=== PATIENT | male | born 1955 | race Caucasian/White ===

== ENCOUNTER 2017-09-02 15:49 | Emergency (ER) | payer OTHER ==
[~2017-09-02] VITALS: Ht 185.4 cm; Wt 81.8 kg
[~2017-09-02 15:49] MED LIST: PROT40TA PO; TYLE500T PO
[2017-09-02 15:53] VITALS: BP 173/84; PULSE 89; RESP 20; TEMP 98.1; O2SAT 100
--- NOTE | 2017-09-02 17:28 | RADRPT ---
EXAM DATE/TIME: 09/02/2017 16:14 [facility] COMPARISON: No previous studies available for comparison. INDICATIONS : Patient states left side rib pain after fall. MEDICAL HISTORY : None. SURGICAL HISTORY : None. ENCOUNTER: Initial ACUITY: 1 day PAIN SCORE: 10/10 LOCATION: Left posterior ribs. FINDINGS: Multiple views of the left ribs were performed. There is no evidence of displaced fracture. No dest ructive lesions or areas of periosteal thickening are seen. Expiratory view of the chest is negative for pneumothorax. There is crowding of the bronchopulmonary markings characteristic of an expirator y film. The mediastinal structures are midline. CONCLUSION: No rib fractures seen. Rios Palacios MD on September 02, 2017 at 17:26 Board Certified Radiologist. This report was verified electronically.
--- NOTE | 2017-09-02 17:37 | RADRPT ---
EXAM DATE/TIME: 09/02/2017 16:23 [facility] COMPARISON: RIBS LEFT(W PA CXR MIN 3VWS), September 02, 2017, 16:14. INDICATIONS : Left shoulder pain post fall. MEDICAL HISTORY : None. SURGICAL HISTORY : None. ENCOUNTER: Initial ACUITY: 1 day PAIN SCORE: 10/10 LOCATION: Left shoulder. FINDINGS: Multiple view examination of the left shoulder demonstrates no evidence of fracture or dislocation. The glenohumeral and acromioclavicular joints are maintained. There is normal range of motion betwee n internal and external rotation. There is a questionable lucency through the superior cortex of the margin of the scapula; a nondisplaced fracture cannot be excluded. The visualized left upper ribs a re intact. qBony mineralization is normal. CONCLUSION: 1. Equivocal findings suggesting a cortical fracture of the superior medial margin of the scapula. 2. No evidence of fracture or dislocation the glenohumeral joint. Rios Palacios MD on September 02, 2017 at 17:34 Board Certified Radiologist. This report was verified electronically.
--- NOTE | 2017-09-02 18:18 | PD ---
HPI Chief Complaint: Injury Time Seen by Provider: 18:17 Travel History International Travel<30 days: No Contact w/Intl Traveler<30days: No Traveled to known affect area: No History of Present Illness HPI 62-year-old male presents for evaluation of left sided shoulder and rib cage pain. He reports that he slipped on wet tile yesterday and felt, landing on his left side and chest wall. Pain is a sharp pain which is worse with movement of the chest wall or movement of the left shoulder. Denies any numbness, tingling, weakness. Denies any shortness of breath, abdominal pain, neck or back pain, head pain. He has no other complaints at this time. PFSH Past Medical History Blood Disorders: No Anxiety: Yes Depression: Yes Cancer: No Cardiovascular Problems: Yes Chemotherapy: No Chest Pain: Yes Diminished Hearing: No Endocrine: No Genitourinary: No Hypertension: Yes Immune Disorder: No Musculoskeletal: Yes Neurologic: No Psychiatric: Yes Reproductive: No Respiratory: No Radiation Therapy: No Past Surgical History Abdominal Surgery: No Cardiac Surgery: No Ear Surgery: No Endocrine Surgery: No Eye Surgery: No Oral Surgery: No Social History Alcohol Use: Yes ("A FEW BEERS A DAY") Tobacco Use: Yes (1 PPD) Substance Use: No (PT DENIES) Allergies-Medications (Allergen,Severity, Reaction): Coded Allergies: No Known Allergies (Verified Adverse Reaction, Unknown, 09/02/17) Reported Meds & Prescriptions Reported Meds & Active Scripts Active Lidocaine Patch 12 HR (Lidocaine) 5 % Patch 1 Patch TOPICAL DAILY PRN Remove patch after 12 hours Naproxen 500 Mg Tab 500 Mg PO BID 10 Days Review of Systems Except as stated in HPI: all other systems reviewed are Neg Physical Exam Narrative GENERAL: Developed well-nourished male in no acute distress SKIN: Warm and dry. No open wounds, no bruising or soft tissue swelling HEAD: Atraumatic. Normocephalic. CARDIOVASCULAR: Regular rate and rhythm. No murmur appreciated. RESPIRATORY: No accessory muscle use. Clear to auscultation. Breath sounds equal bilaterally. GASTROINTESTINAL: Abdomen soft, non-tender, nondistended. Hepatic and splenic margins not palpable. MUSCULOSKELETAL: No obvious deformities. Tender to palpation to the anterior left chest wall, posterior left shoulder. The patient maintains full range of motion of the extremities. No tenderness to palpation along the cervical thoracic lumbar midline spine. No bony crepitus. NEUROLOGICAL: Awake and alert. No obvious cranial nerve deficits. Motor grossly within normal limits. Normal speech. Data Data Last Documented VS Vital Signs Date Time Temp Pulse Resp B/P (MAP) Pulse Ox O2 Delivery O2 Flow Rate FiO2 09/02/17 15:53 98.1 89 20 173/84 (113) 100 Orders Orders Ribs, Uni (W/Exp Cxr-Min 3vw) (09/02/17 ) Shoulder, Complete (>2vws) (09/02/17 ) Ct Shoulder W/O Contrast (09/02/17 ) [facility] Medical Decision Making Medical Screen Exam Complete: Yes Emergency Medical Condition: Yes Medical Record Reviewed: Yes Differential Diagnosis Rib fracture, contusion, hemothorax, pneumothorax, shoulder strain Narrative Course Rib x-rays unremarkable. Left shoulder x-ray reveals CONCLUSION: 1. Equivocal findings suggesting a cortical fracture of the superior medial margin of the scapula. 2. No evidence of fracture or dislocation the glenohumeral joint. CT of the left shoulder has been ordered. CT of the left shoulder is negative. At this point time the plan is to discharge the patient. Diagnosis Primary Impression: Chest wall contusion Additional Impression: Left shoulder strain Additional Instructions: Medication as needed. Take naproxen with meals. Avoid strenuous activity. Follow-up with primary care physician in 1-2 weeks. Return for any emergent medical conditions. Med/Other Pt SpecificInfo: Prescription(s) given Scripts Lidocaine Patch 12 HR (Lidocaine Patch 12 HR) 5 % Patch 1 PATCH TOPICAL DAILY Y for PAIN, #1 BOX 0 Refills Remove patch after 12 hours Prov: Hero Evans MD 09/02/17 Naproxen (Naproxen) 500 Mg Tab 500 MG PO BID for 10 Days, #20 TAB 0 Refills Prov: Hero Evans MD 09/02/17 Disposition: 01 DISCHARGE HOME Condition: Stable Scar Albright Sep 02, 2017 18:18
--- NOTE | 2017-09-02 19:05 | RADRPT ---
EXAM DATE/TIME: 09/02/2017 18:36 [facility] COMPARISON: No previous studies available for comparison. INDICATIONS : Trauma, fall yesterday. Left shoulder pain. RADIATION DOSE: 32.16 CTDIvol (mGy) MEDICAL HISTORY : Hypertension. SURGICAL HISTORY : None. ENCOUNTER: Initial ACUITY: 2 days PAIN SCALE: 8/10 LOCATION: Left shoulder TECHNIQUE: Volumetric scanning of the shoulder was performed. Using automated exposure control and adjustment o f the mA and/or kV according to patient size, radiation dose was kept as low as reasonably achievable to obtain optimal diagnostic quality images. DICOM format image data is available electronically f or review and comparison. FINDINGS: BONES: No evidence of fracture. Alignment is within normal limits. JOINTS: No evidence of joint narrowing or effusion. SOFT TISSUES: Muscles, tendons, and neurovascular structures are grossly unremarkable. The integrity of the rotato r cuff tendons cannot be reliably evaluated on CT without intra-articular contrast. No evidence of m ass, organized fluid collection, or foreign body. CONCLUSION: 1. No acute fracture identified. Vito Minor MD on September 02, 2017 at 19:01 Board Certified Radiologist. This report was verified electronically.
[2017-09-02] MEDS ORDERED: NAPR500T2 PO (19:12)
[2017-09-02] MEDS ORDERED: LIDO1PAD52 TOPICAL (19:12)
== END 2017-09-02 19:40 | disposition home or self-care (01) ==
LOC: NEPK 15:49
DX: S20.219A Contusion of unspecified front wall of thorax, initial encounter (principal); S46.912A Strain of unspecified muscle, fascia and tendon at shoulder and upper arm level, left arm, initial encounter; W01.0XXA Fall on same level from slipping, tripping and stumbling without subsequent striking against object, initial encounter
CPT/HCPCS: 71101; 73030; 73200

== ENCOUNTER 2017-09-05 17:05 | Emergency (ER) | payer OTHER ==
[~2017-09-05] VITALS: Ht 185.4 cm; Wt 86.0 kg
[~2017-09-05 17:05] MED LIST changes: +LIDO1PAD52 TOPICAL; +NAPR500T2 PO; -PROT40TA PO; -TYLE500T PO
[2017-09-05 17:22] VITALS: BP 170/88; PULSE 78; RESP 18; TEMP 98.6; O2SAT 98
--- NOTE | 2017-09-05 18:03 | PD ---
HPI Chief Complaint: Chest Pain Time Seen by Provider: 17:39 Travel History International Travel<30 days: No Contact w/Intl Traveler<30days: No Traveled to known affect area: No History of Present Illness HPI This patient was seen here couple of days ago for chest wall pain. He fell and hit his chest wall on the ground. He complains of left-sided rib pain. Patient had imaging studies that were negative for fracture. He was prescribed some lidocaine patches which he did not fill. I have advised him to not fill the Naprosyn prescription given his alcoholism and history of GI bleeding with hemorrhagic shock. He is still actively drinking. Symptom severity is moderate. His chest wall pain is worse with movement PFSH Past Medical History Blood Disorders: No Anxiety: Yes Depression: Yes Cancer: No Cardiovascular Problems: Yes Chemotherapy: No Chest Pain: Yes Diminished Hearing: No Endocrine: No Gastrointestinal Disorders: No Genitourinary: No Hypertension: Yes Immune Disorder: No Implanted Vascular Access Dvce: No Musculoskeletal: Yes Neurologic: No Psychiatric: Yes Reproductive: No Respiratory: No Radiation Therapy: No Past Surgical History Abdominal Surgery: No Cardiac Surgery: No Ear Surgery: No Endocrine Surgery: No Eye Surgery: No Neurologic Surgery: No Oral Surgery: No Other Surgery: No Social History Alcohol Use: Yes ("A FEW BEERS A DAY") Tobacco Use: Yes (1 PPD) Substance Use: No (PT DENIES) Allergies-Medications (Allergen,Severity, Reaction): Coded Allergies: No Known Allergies (Verified Adverse Reaction, Unknown, 09/02/17) Reported Meds & Prescriptions Reported Meds & Active Scripts Active Lidocaine Patch 12 HR (Lidocaine) 5 % Patch 1 Patch TOPICAL DAILY PRN Remove patch after 12 hours Naproxen 500 Mg Tab 500 Mg PO BID 10 Days Review of Systems General / Constitutional: No: Fever Eyes: No: Visual changes HENT: No: Headaches Cardiovascular: Positive: Chest Pain or Discomfort Respiratory: No: Shortness of Breath Gastrointestinal: No: Abdominal Pain Genitourinary: No: Dysuria Musculoskeletal: No: Pain Skin: Positive Change in Pigmentation, No Rash Neurologic: No: Weakness Psychiatric: Positive: Substance Abuse, No: Depression Endocrine: No: Polydipsia Hematologic/Lymphatic: No: Easy Bruising Physical Exam Narrative GENERAL: Disheveled well-developed patient in no apparent distress. SKIN: Focused skin assessment reveals no rash and nodules. Skin is Warm and dry. He is diffusely jaundiced HEAD: Atraumatic. Normocephalic. EYES: Pupils equal and round. Positive scleral icterus. No injection or drainage. ENT: No nasal bleeding or discharge. Mucous membranes pink and moist. NECK: Trachea midline. No JVD. CARDIOVASCULAR: Regular rate and rhythm. No murmur appreciated. RESPIRATORY: No accessory muscle use. Clear to auscultation. Breath sounds equal bilaterally. GASTROINTESTINAL: Abdomen soft, non-tender, nondistended. Hepatic and splenic margins not palpable. hWeek as caput medusa MUSCULOSKELETAL: No obvious deformities. No clubbing. No cyanosis. No edema. Chest wall is nontender. There is no crepitus or bruising. NEUROLOGICAL: Awake and alert. No obvious cranial nerve deficits. Motor grossly within normal limits. Normal speech. PSYCHIATRIC: Appropriate mood and affect; insight and judgment weak . Data Data Last Documented VS Vital Signs Date Time Temp Pulse Resp B/P (MAP) Pulse Ox O2 Delivery O2 Flow Rate FiO2 09/05/17 17:34 96 Room Air 09/05/17 17:22 98.6 78 18 170/88 (115) MDM Medical Decision Making Medical Screen Exam Complete: Yes Emergency Medical Condition: Yes Medical Record Reviewed: Yes Differential Diagnosis Fracture contusion, pneumothorax Narrative Course I have reviewed the patient's electronic medical record. Reviewed his visit from a couple days ago including imaging studies No indication for further imaging studies. Saturations are good and he should fill his prescription for lidocaine patches and try them. Recommend primary care follow-up and consideration of [facility] alcohol rehab services Diagnosis Primary Impression: Contusion of left chest wall Qualified Codes: S20.212D - Contusion of left front wall of thorax, subsequent encounter Additional Impressions: Alcoholism Jaundice Additional Instructions: Do not feel the Naprosyn prescription Try lidocaine patches as prescribed The patient was advised to follow up with their physician and return if they worsen. Recommend [facility] alcohol rehab services Med/Other Pt SpecificInfo: Other Disposition: 01 DISCHARGE HOME Condition: Stable Anthony Allen MD September 05, 2017 18:03
[2017-09-05 18:39] VITALS: BP 178/79
== END 2017-09-05 19:33 | disposition home or self-care (01) ==
LOC: NEPD 17:05
DX: S20.212D Contusion of left front wall of thorax, subsequent encounter (principal); F10.20 Alcohol dependence, uncomplicated; F17.200 Nicotine dependence, unspecified, uncomplicated; W19.XXXD Unspecified fall, subsequent encounter
CPT/HCPCS: 99282

== ENCOUNTER 2017-09-09 06:41 | Inpatient (IN) | payer OTHER ==
[2017-09-09] VITALS (7 sets, daily range): BP systolic 148–179; BP diastolic 73–80; PULSE 71–80; RESP 17–18; TEMP 98.1–98.5; O2SAT 98–100
[~2017-09-09] VITALS: Ht 185.4 cm; Wt 75.8 kg
[2017-09-09] MEDS ORDERED: TYLE325T PO (06:57)
[2017-09-09] MEDS ORDERED: PROT40TA PO (06:57)
[2017-09-09] MEDS ORDERED: SODIUM CHLORIDE 0.9% FLUSH 10 ML FLUSH IV FLUSH PRN (07:15)
--- NOTE | 2017-09-09 08:00 | PD ---
HPI Chief Complaint: Fall Time Seen by Provider: 07:05 Travel History International Travel<30 days: No Contact w/Intl Traveler<30days: No Traveled to known affect area: No History of Present Illness HPI The patient 62 years old and arrives to the ER with a complaint of total body pain. He had a fall. He has a history of alcoholism and jaundice. He reports that he is also been unable to sleep due to pain in the ribs from prior rib fracture. Timing constant. Severity moderate. Inspiration worsens pain. PFSH Past Medical History Blood Disorders: No Anxiety: Yes Depression: Yes Cancer: No Cardiovascular Problems: Yes Chemotherapy: No Chest Pain: Yes Diminished Hearing: No Endocrine: No Gastrointestinal Disorders: No Genitourinary: No Hypertension: Yes Immune Disorder: No Implanted Vascular Access Dvce: No Musculoskeletal: Yes Neurologic: No Psychiatric: Yes Reproductive: No Respiratory: No Radiation Therapy: No Tetanus Vaccination: Unknown Influenza Vaccination: No ?: Not Past Surgical History Abdominal Surgery: No Cardiac Surgery: No Ear Surgery: No Endocrine Surgery: No Eye Surgery: No Neurologic Surgery: No Oral Surgery: No Other Surgery: No Social History Alcohol Use: Yes ("A FEW BEERS A DAY") Tobacco Use: Yes (1 PPD) Substance Use: No (PT DENIES) Allergies-Medications (Allergen,Severity, Reaction): Coded Allergies: No Known Allergies (Verified Adverse Reaction, Unknown, 09/09/17) Reported Meds & Prescriptions Reported Meds & Active Scripts Active Reported Tylenol (Acetaminophen) 325 Mg Tab 325 Mg PO Q4H PRN Protonix (Pantoprazole Sodium) 40 Mg Tab 40 Mg PO DAILY Review of Systems Except as stated in HPI: all other systems reviewed are Neg Physical Exam Narrative GENERAL: 62-year-old male well-nourished well-developed, generalized jaundice Vital Signs Date Time Temp Pulse Resp B/P (MAP) Pulse Ox O2 Delivery O2 Flow Rate FiO2 09/09/17 06:47 98.2 80 17 175/80 (111) 100 SKIN: Warm and dry. HEAD: Atraumatic. Normocephalic. EYES: Pupils equal and round. Scleral icterus is present. No injection or drainage. ENT: No nasal bleeding or discharge. Mucous membranes pink and moist. NECK: Trachea midline. No JVD. CARDIOVASCULAR: Regular rate and rhythm. RESPIRATORY: No accessory muscle use. Clear to auscultation. Breath sounds equal bilaterally. GASTROINTESTINAL: Soft. There is no focus of tenderness. MUSCULOSKELETAL: Extremities without clubbing, cyanosis, or edema. No obvious deformities. NEUROLOGICAL: Awake and alert. No obvious cranial nerve deficits. Motor grossly within normal limits. Five out of 5 muscle strength in the arms and legs. Normal speech. PSYCHIATRIC: Appropriate mood and affect; insight and judgment normal. Data Data Last Documented VS Vital Signs Date Time Temp Pulse Resp B/P (MAP) Pulse Ox O2 Delivery O2 Flow Rate FiO2 09/09/17 06:47 98.2 80 17 175/80 (111) 100 Orders Orders Complete Blood Count With Diff (09/09/17 07:13) Comprehensive Metabolic Panel (09/09/17 07:13) Lipase (09/09/17 07:13) Iv Access Insert/Monitor (09/09/17 07:13) Ecg Monitoring (09/09/17 07:13) Oximetry (09/09/17 07:13) Sodium Chloride 0.9% Flush (Ns Flush) (09/09/17 07:15) Chest, Single Ap (09/09/17 07:13) Lidocaine 5% Patch.12 Hr (Lidoderm 5% Pa (09/09/17 08:45) Ct Abd/Pel W Iv Contrast(Rout) (09/09/17 08:33) Admit Order (Ed Use Only) (09/09/17 ) Nurse Staff / Telemetry RIVERA.Q8H (09/09/17 09:09) Vital Signs (Adult) Q4H (09/09/17 09:09) Activity Bed Rest (09/09/17 09:09) Notify Dr: Other (09/09/17 09:09) Labs Laboratory Tests Test 09/09/17 07:35 White Blood Count 7.9 TH/MM3 Red Blood Count 3.02 MIL/MM3 Hemoglobin 11.2 GM/DL Hematocrit 32.1 % Mean Corpuscular Volume 106.1 FL Mean Corpuscular Hemoglobin 37.1 PG Mean Corpuscular Hemoglobin Concent 35.0 % Red Cell Distribution Width 17.0 % Platelet Count 59 TH/MM3 Mean Platelet Volume 8.7 FL Neutrophils (%) (Auto) 69.7 % Lymphocytes (%) (Auto) 14.4 % Monocytes (%) (Auto) 14.1 % Eosinophils (%) (Auto) 1.5 % Basophils (%) (Auto) 0.3 % Neutrophils # (Auto) 5.5 TH/MM3 Lymphocytes # (Auto) 1.1 TH/MM3 Monocytes # (Auto) 1.1 TH/MM3 Eosinophils # (Auto) 0.1 TH/MM3 Basophils # (Auto) 0.0 TH/MM3 CBC Comment AUTO DIFF Differential Comment AUTO DIFF CONFIRMED Platelet Estimate LOW Platelet Morphology Comment NORMAL Blood Urea Nitrogen 11 MG/DL Creatinine 1.30 MG/DL Random Glucose 108 MG/DL Total Protein 8.3 GM/DL Albumin 1.8 GM/DL Calcium Level 8.3 MG/DL Alkaline Phosphatase 109 U/L Aspartate Amino Transf (AST/SGOT) 92 U/L Alanine Aminotransferase (ALT/SGPT) 40 U/L Total Bilirubin 8.2 MG/DL Sodium Level 141 MEQ/L Potassium Level 3.1 MEQ/L Chloride Level 110 MEQ/L Carbon Dioxide Level 23.7 MEQ/L Anion Gap 7 MEQ/L Estimat Glomerular Filtration Rate 56 ML/MIN Lipase 253 U/L [facility] Medical Decision Making Medical Screen Exam Complete: Yes Emergency Medical Condition: Yes Medical Record Reviewed: Yes Differential Diagnosis Rib fracture, metabolic disarray, liver cancer Narrative Course CBC & BMP Diagram 09/09/17 07:35 Total Protein 8.3 H, Albumin 1.8 L, Calcium Level 8.3 L, Alkaline Phosphatase 109, Aspartate Amino Transf (AST/SGOT) 92 H, Alanine Aminotransferase (ALT/SGPT ) 40, Total Bilirubin 8.2 H Most recent prior bilirubin we have on record is from about 9 years ago and was about two then. Patient is markedly deconditioned and will undergo CT scanning for further evaluation. Etiology of hyperbilirubinemia noted at this time the presumably secondary to cirrhosis from alcoholism. Case discussed with Dr. Lepe for the hospitalist service Dr. Lockett radiology called me at [phone] and reported that there could be a tiny capsular hematoma on the spleen and that marked splenomegaly was also observed. Diagnosis Primary Impression: Hyperbilirubinemia Additional Impressions: Ascites Qualified Codes: R18.8 - Other ascites Splenomegaly Fall Qualified Codes: W19.XXXS - Unspecified fall, sequela Rib contusion Admitting Information Admitting Physician Requests: Admit Kam Wise MD September 09, 2017 08:00
[2017-09-09 08:11] LABS: ALBUMIN 1.8 GM/DL (3.4-5.0); ALT (GPT) 40 U/L (12-78); AST (GOT) 92 U/L (15-37); BICARBONATE 23.7 MEQ/L (21.0-32.0); BLOOD UREA NITROGEN 11 MG/DL (7-18); CALCIUM 8.3 MG/DL (8.5-10.1); CHLORIDE 110 MEQ/L (98-107); GLOMERULAR FILTRATION RATE 56 ML/MIN (>89); GLUCOSE,RANDOM 108 MG/DL (74-106); SODIUM (NA) 141 MEQ/L (136-145)
[2017-09-09 08:13] LABS: ALKALINE PHOSPHATASE 109 U/L (45-117); TOTAL BILIRUBIN ADULT 8.2 MG/DL (0.2-1.0); TOTAL PROTEIN 8.3 GM/DL (6.4-8.2)
[2017-09-09 08:17] LABS: AUTOMATED NEUTROPHIL # 5.5 TH/MM3 (1.8-7.7); BASOPHIL % 0.3 % (0.0-2.0); EOSINOPHIL # 0.1 TH/MM3 (0-0.4); EOSINOPHIL % 1.5 % (0.0-4.0); HEMATOCRIT 32.1 % (39.0-51.0); HEMOGLOBIN 11.2 GM/DL (13.0-17.0); LYMPH % 14.4 % (9.0-44.0); LYMPHOCYTE # 1.1 TH/MM3 (1.0-4.8); MEAN CELL VOLUME 106.1 FL (80.0-100.0); MEAN CORPUSCULAR HEMOGLOBIN 37.1 PG (27.0-34.0); MEAN PLATELET VOLUME 8.7 FL (7.0-11.0); MONO % 14.1 % (0.0-8.0); MONOCYTE # 1.1 TH/MM3 (0-0.9); NEUT % 69.7 % (16.0-70.0); PLATELET COUNT 59 TH/MM3 (150-450); RED BLOOD COUNT 3.02 MIL/MM3 (4.50-5.90); WHITE BLOOD COUNT 7.9 TH/MM3 (4.0-11.0)
[2017-09-09] MEDS ORDERED: LIDOCAINE HCL 5% PATCH T-DERMAL ONE (08:45)
--- NOTE | 2017-09-09 09:08 | RADRPT ---
EXAM DATE/TIME: 09/09/2017 07:34 [facility] COMPARISON: RIBS LEFT(W PA CXR MIN 3VWS), September 02, 2017, 16:14. INDICATIONS : Pain left upper chest and ribs since fall on 09/02/17, coughing MEDICAL HISTORY : Hypertension. SURGICAL HISTORY : None. ENCOUNTER: [facility] ACUITY: 1 week PAIN SCORE: Non-responsive. LOCATION: Left chest FINDINGS: A single view of the chest demonstrates the lungs to be symmetrically aerated without evidence of mas s, infiltrate or effusion. The heart size is normal. There is increased density in the right paratra cheal region. Osseous structures are intact. CONCLUSION: 1. No acute abnormality seen. 2. Increased density in the right paratracheal region. Jairo Kelly MD on September 09, 2017 at 9:03 Board Certified Radiologist. This report was verified electronically.
[2017-09-09] MEDS ORDERED: ONDANSETRON HCL 4 MG/2 ML VIAL IVP PRN (09:15)
[2017-09-09] MEDS ORDERED: ACETAMINOPHEN 325 MG TAB PO PRN (09:15)
[2017-09-09] MEDS ORDERED: LACTULOSE SYRUP 20 GM/30 ML CUP PO PRN (09:15)
[2017-09-09] MEDS ORDERED: SENNOSIDES 8.6 MG TAB PO PRN (09:15)
[2017-09-09] MEDS ORDERED: NALOXONE HCL 0.4 MG/ML AMP IV PUSH PRN (09:15)
[2017-09-09] MEDS ORDERED: BISACODYL 10 MG SUPP RECTAL PRN (09:15)
[2017-09-09] MEDS ORDERED: MAGNESIUM HYDROXIDE SUSP 30 ML CUP PO PRN (09:15)
[2017-09-09] MEDS ORDERED: IOHEXOL 350 MG/ML 10 ML VIAL (for RAD DIAG) IVCONTRAST ONE (09:16)
--- NOTE | 2017-09-09 09:37 | RADRPT ---
EXAM DATE/TIME: 09/09/2017 09:09 [facility] COMPARISON: No previous studies available for comparison. INDICATIONS : Fall, left rib pain and flank pain IV CONTRAST: 86 cc Omnipaque 350 (iohexol) IV ORAL CONTRAST: No oral contrast ingested. RADIATION DOSE: 8.30 CTDIvol (mGy) MEDICAL HISTORY : Cardiovascular disease. Hypertension. SURGICAL HISTORY : None. ENCOUNTER: Initial ACUITY: 1 day PAIN SCALE: 6/10 LOCATION: Left flank TECHNIQUE: Volumetric scanning of the abdomen and pelvis was performed. Using automated exposure control and ad justment of the mA and/or kV according to patient size, radiation dose was kept as low as reasonably achievable to obtain optimal diagnostic quality images. DICOM format image data is available electro nically for review and comparison. FINDINGS: The lower lungs are clear. There is no pneumothorax. Mitral valvular calcifications are noted. Moderate ascites with small shrunken liver. Spleen prominent with possible tiny subcapsular hematoma. Pancreas is unremarkable Extensive varicosities are seen around the stomach and abdominal wall Right and left kidneys are unremarkable Varicosities are seen abdominal wall with ascites in the pelvis. There is mesenteric edema evident. Review of bone windows reveals no evidence for rib fracture. There is minimal soft tissue swelling costochondral junction on the left probably related to trauma. CONCLUSION: Extensive ascites with cirrhosis or varicosities. Prominent spleen with possible tiny subcapsular he matoma series 2 image 30. Minimal induration anterior abdominal wall left side. Gilbert Lockett MD FACR on September 09, 2017 at 9:30 Board Certified Radiologist. This report was verified electronically.
[2017-09-09] MEDS ORDERED: POTASSIUM CHLORIDE 20 MEQ CONTROLLED RELEASE TAB PO ONE (10:00)
--- NOTE | 2017-09-09 18:59 | HHI.HP ---
HPI Service [facility] Hospitalists Primary Care Physician Unknown Admission Diagnosis Hyperbilirubinemia; Falls Diagnoses: Chief Complaint: Fall Travel History International Travel<30 Days: No Contact w/Intl Traveler <30 Da: No Traveled to Known Affected Are: No History of Present Illness This is a 62-year-old male with past medical history significant for chronic alcohol abuse who presents to [facility] after he slipped and fell. The patient states that he slipped over a towel and fell over his left side. Complained of chest pain on the left side of the rib cage. He was experiencing some left shoulder pain and headache. Denies any fevers chills. The patient however denies hitting his head or passing out. The patient otherwise denies any shortness of breath, fevers, chills, dysuria, diarrhea, nausea, vomiting. He notes when asked that his belly is somewhat distended. Patient was seen in emergency department where a chest x-ray was negative for acute abnormality. There was increased density in the right paratracheal region noted. CT of the abdomen and pelvis showed extensive ascites with cirrhosis or varicosities. Prominent spleen with possible tiny subcapsular hematoma. Minimal induration of the anterior abdominal wall on the left side. The patient was admitted due to his elevated bilirubin, ascites. Review of Systems As per HPI, other systems reviewed by me and negative. Past Family Social History Past Medical History 1. Substance abuse. 2. Bleeding ulcer. 3. Anxiety. 4. Hypertension. These were obtained from medical records. The patient denies any medical problems. Past Surgical History Denies any major surgeries. Reported Medications Tylenol (Acetaminophen) 325 Mg Tab 325 Mg PO Q4H PRN Protonix (Pantoprazole Sodium) 40 Mg Tab 40 Mg PO DAILY Allergies: Coded Allergies: No Known Allergies (Verified Adverse Reaction, Unknown, 09/09/17) Active Ordered Medications Current Medications Medications (Trade) Dose Ordered Sig/Tosin Route Start Time Stop Time Status Last Admin (NS Flush) 2 ml UNSCH PRN IV FLUSH 09/09/17 09:15 (NS Flush) 2 ml BID IV FLUSH 09/09/17 21:00 (Tylenol) 650 mg Q4H PRN PO 09/09/17 09:15 (Zofran Inj) 4 mg Q6H PRN IVP 09/09/17 09:15 (Narcan Inj) 0.4 mg UNSCH PRN IV PUSH 09/09/17 09:15 (Toña-Colace) 1 tab BID PO 09/09/17 21:00 (Milk Of Magnesia Liq) 30 ml Q12H PRN PO 09/09/17 09:15 (Senokot) 17.2 mg Q12H PRN PO 09/09/17 09:15 (Dulcolax Supp) 10 mg DAILY PRN RECTAL 09/09/17 09:15 (Lactulose Liq) 30 ml DAILY PRN PO 09/09/17 09:15 Family History Denies family history of CAD, hypertension, cancer, cirrhosis. Social History The patient states he smokes, however it does not know what quantity. The patient drinks beer about a sixpack every day. The patient's states that he used to drink heavy liquor in the past. Physical Exam Vital Signs Vital Signs Date Time Temp Pulse Resp B/P (MAP) Pulse Ox O2 Delivery O2 Flow Rate FiO2 09/09/17 12:00 148/73 (98) 09/09/17 10:55 98.1 72 18 179/79 (112) 100 09/09/17 10:26 82 18 154/76 (102) 98 09/09/17 10:23 98 Room Air 09/09/17 06:47 98.2 80 17 175/80 (111) 100 Physical Exam GENERAL: This is a thin malnourished, well-developed patient, in no apparent distress. SKIN: No rashes, ecchymoses or lesions. Cool and dry. + Jaundice. HEAD: Atraumatic. Normocephalic. No temporal or scalp tenderness. EYES: Pupils equal round and reactive. Extraocular motions intact. No injection or drainage. + icteric sclera ENT: Nose without bleeding, purulent drainage or septal hematoma. Throat without erythema, tonsillar hypertrophy or exudate. Uvula midline. Airway patent. NECK: Trachea midline. No JVD or lymphadenopathy. Supple, nontender, no meningeal signs. CARDIOVASCULAR: Regular rate and rhythm without murmurs, gallops, or rubs. RESPIRATORY: Clear to auscultation. Breath sounds equal bilaterally. No wheezes , rales, or rhonchi. GASTROINTESTINAL: Abdomen soft, non-tender, + moderately distended with + ascitic fluid wave. No hepato-splenomegaly, or palpable masses. No guarding. MUSCULOSKELETAL: Extremities without clubbing, cyanosis, or edema. No joint tenderness, effusion, or edema noted. No calf tenderness. Negative Homans sign bilaterally. NEUROLOGICAL: Awake and alert. Cranial nerves II through XII intact. Motor and sensory grossly within normal limits. Five out of 5 muscle strength in all muscle groups. Normal speech. Laboratory Laboratory Tests Test 09/09/17 07:35 09/09/17 10:00 White Blood Count 7.9 Red Blood Count 3.02 Hemoglobin 11.2 Hematocrit 32.1 Mean Corpuscular Volume 106.1 Mean Corpuscular Hemoglobin 37.1 Mean Corpuscular Hemoglobin Concent 35.0 Red Cell Distribution Width 17.0 Platelet Count 59 Mean Platelet Volume 8.7 Neutrophils (%) (Auto) 69.7 Lymphocytes (%) (Auto) 14.4 Monocytes (%) (Auto) 14.1 Eosinophils (%) (Auto) 1.5 Basophils (%) (Auto) 0.3 Neutrophils # (Auto) 5.5 Lymphocytes # (Auto) 1.1 Monocytes # (Auto) 1.1 Eosinophils # (Auto) 0.1 Basophils # (Auto) 0.0 CBC Comment AUTO DIFF Differential Comment AUTO DIFF CONFIRMED Platelet Estimate LOW Platelet Morphology Comment NORMAL Blood Urea Nitrogen 11 Creatinine 1.30 Random Glucose 108 Total Protein 8.3 Albumin 1.8 Calcium Level 8.3 Alkaline Phosphatase 109 Aspartate Amino Transf (AST/SGOT) 92 Alanine Aminotransferase (ALT/SGPT) 40 Total Bilirubin 8.2 Sodium Level 141 Potassium Level 3.1 Chloride Level 110 Carbon Dioxide Level 23.7 Anion Gap 7 Estimat Glomerular Filtration Rate 56 Lipase 253 Ammonia 33 Result Diagram: 09/09/1773409/09/17734 Imaging Last Impressions Abdomen/Pelvis CT 09/09/1775 Signed Impressions: Service Date/Time: Saturday, September 09, 2017 09:09 - CONCLUSION: Extensive ascites with cirrhosis or varicosities. Prominent spleen with possible tiny subcapsular hematoma series 2 image 30. Minimal induration anterior abdominal wall left side. Gilbert Lockett MD FACR Chest X-Ray 09/09/17 0753 Signed Impressions: Service Date/Time: Saturday, September 09, 2017 07:34 - CONCLUSION: 1. No acute abnormality seen. 2. Increased density in the right paratracheal region. MD Tigre Martel VTE Risk Assessment Tigre VTE Risk Assessment: No/Low Risk (score <= 1) VTE Pharm Contraindication: Coagulopathy,INR elevated Caprini Risk Assessment Model Point Value = 1 Point Value = 2 Point Value = 3 Point Value = 5 Age 41-60 Minor surgery BMI > 25 kg/m2 Swollen legs Varicose veins or History of unexplained or recurrent spontaneous Oral contraceptives or hormone replacement Sepsis (< 1 month) Serious lung disease, including pneumonia (< 1 month) Abnormal pulmonary function Acute myocardial infarction Congestive heart failure (< 1 month) History of inflammatory bowel disease Medical patient at bed rest Age 61-74 Arthroscopic surgery Major open surgery (> 45 min) Laparoscopic surgery (> 45 min) Malignancy Confined to bed (> 72 hours) Immobilizing plaster cast Central venous access Age >= 75 History of VTE Family history of VTE Factor V Leiden Prothrombin [id number] Lupus anticoagulant Anticardiolipin antibodies Elevated serum homocysteine Heparin-induced thrombocytopenia Other congenital or acquired thrombophilia Stroke (< 1 month) Elective arthroplasty Hip, pelvis, or leg fracture Acute spinal cord injury (< 1 month) Prophylaxis Regimen Total Risk Factor Score Risk Level Prophylaxis Regimen 0-1 Low Early ambulation 2 Moderate Order ONE of the following: *Sequential Compression Device (SCD) *Heparin 5000 units SQ BID 3-4 Higher Order ONE of the following medications: *Heparin 5000 units SQ TID *Enoxaparin/Lovenox 40 mg SQ daily (WT < 150 kg, CrCl > 30 mL/min) *Enoxaparin/Lovenox 30 mg SQ daily (WT < 150 kg, CrCl > 10-29 mL/min) *Enoxaparin/Lovenox 30 mg SQ BID (WT < 150 kg, CrCl > 30 mL/min) AND/OR *Sequential Compression Device (SCD) 5 or more Highest Order ONE of the following medications: *Heparin 5000 units SQ TID (Preferred with Epidurals) *Enoxaparin/Lovenox 40 mg SQ daily (WT < 150 kg, CrCl > 30 mL/min) *Enoxaparin/Lovenox 30 mg SQ daily (WT < 150 kg, CrCl > 10-29 mL/min) *Enoxaparin/Lovenox 30 mg SQ BID (WT < 150 kg, CrCl > 30 mL/min) AND *Sequential Compression Device (SCD) Assessment and Plan Problem List: (1) Liver cirrhosis ICD Code: K74.60 - Unspecified cirrhosis of liver Plan: Admit the patient to the medical floor Ultrasound-guided paracentesis GI consultation (2) Spleen hematoma ICD Code: S36.029A - Unspecified contusion of spleen, initial encounter Plan: Awaiting GI recommendations. (3) Hyperbilirubinemia ICD Code: E80.6 - Other disorders of bilirubin metabolism Status: Acute Plan: We will obtain fractionated bilirubin. Suspect elevated bilirubin secondary to ascites and liver disease. (4) Splenomegaly ICD Code: R16.1 - Splenomegaly, not elsewhere classified Status: Acute Plan: Secondary to portal hypertension secondary to liver cirrhosis. (5) Ascites ICD Code: R18.8 - Other ascites Status: Acute Plan: Ascites secondary to likely alcoholic liver cirrhosis. We will obtain ultrasound abdominal paracentesis. (6) Hypokalemia ICD Code: E87.6 - Hypokalemia Status: Acute Plan: Likely due to poor oral intake. Replace and monitor BMP. (7) Macrocytic anemia ICD Code: D53.9 - Nutritional anemia, unspecified Status: Chronic Plan: Likely secondary to liver disease, cirrhosis and hyperinsulinism. Continue to monitor CBC, no evidence of active bleeding. (8) HTN (hypertension) ICD Code: I10 - Essential (primary) hypertension Plan: BP elevated into the 170's Start on clonidine as needed for sbp>160 mmhg (9) Fall ICD Code: W19.XXXA - Unspecified fall, initial encounter Plan: LUE x ray LLE is edematous - check venous doppler (10) Left shoulder pain ICD Code: M25.512 - Pain in left shoulder Plan: Status post mechanical fall. Thank x-ray of the left shoulder and left elbow. (11) Edema of left lower extremity ICD Code: R60.0 - Localized edema Plan: Left lower extremity has nonpitting edema more significant than the left lower extremity compared to the right. The patient sustained a trauma increase in the risk of development of DVT. Check ultrasound venous Doppler of the left lower extremity to rule out DVT. Assessment and Plan DVT prophylaxis: SCDs, no chemo prophylaxis given possibility of the presence of esophageal varices and increased risk of bleeding. GI prophylaxis: PPI. Code Status Full code Discussed Condition With ED physician, patient, RN. Physician Certification 2 Midnight Certification Type: Admission for Inpatient Services Order for Inpatient Services The services are ordered in accordance with Medicare regulations or non- Medicare payer requirements, as applicable. In the case of services not specified as inpatient-only, they are appropriately provided as inpatient services in accordance with the 2-midnight benchmark. Estimated LOS (days): 2 days is the estimated time the patient will need to remain in the hospital, assuming treatment plan goals are met and no additional complications. Post-Hospital Plan: Not yet determined Problem Qualifiers (1) Ascites: Qualified Codes: R18.8 - Other ascites (2) Left shoulder pain: Qualified Codes: M25.512 - Pain in left shoulder Arie Hodge MD September 09, 2017 18:59
[2017-09-09] MEDS ORDERED: LORazepam 2 MG/ML VIAL IV PUSH PRN ×4 (20:00)
[2017-09-09] MEDS ORDERED: LORazepam 1 MG TAB PO PRN (20:00)
[2017-09-09] MEDS ORDERED: cloNIDine HCL 0.1 MG TAB PO PRN (20:00)
[2017-09-09] MEDS ORDERED: FLUMAZENIL 0.5 MG/5 ML VIAL IV PUSH PRN (20:00)
[2017-09-09] MEDS ORDERED: LORazepam 2 MG TAB PO PRN (20:00)
--- NOTE | 2017-09-09 21:22 | RADRPT ---
EXAM DATE/TIME: 09/09/2017 20:53 [facility] COMPARISON: No previous studies available for comparison. INDICATIONS : Left elbow pain post fall. MEDICAL HISTORY : None. SURGICAL HISTORY : None. ENCOUNTER: Initial ACUITY: 1 day PAIN SCORE: 10/10 LOCATION: Left elbow. FINDINGS: Multiple view examination of the left elbow demonstrates no soft tissue swelling, joint effusion, or fracture. The osseous structures are in normal alignment. Bony mineralization is normal. CONCLUSION: 1. No acute bony abnormalities. Vito Minor MD on September 09, 2017 at 21:18 Board Certified Radiologist. This report was verified electronically.
--- NOTE | 2017-09-09 21:24 | RADRPT ---
EXAM DATE/TIME: 09/09/2017 21:01 [facility] COMPARISON: No previous studies available for comparison. INDICATIONS : Left shoulder pain after fall. MEDICAL HISTORY : None. SURGICAL HISTORY : None. ENCOUNTER: Initial ACUITY: 1 day PAIN SCORE: 10/10 LOCATION: Left shoulder. FINDINGS: Multiple view examination of the left shoulder demonstrates no evidence of fracture or dislocation. The glenohumeral and acromioclavicular joints are maintained. There is normal range of motion betwee n internal and external rotation. Bony mineralization is normal. CONCLUSION: 1. No acute bony abnormality. Vito Minor MD on September 09, 2017 at 21:20 Board Certified Radiologist. This report was verified electronically.
[2017-09-09] MEDS: SPIRONOLACTONE 25 MG TAB PO SCH (21:38)
[2017-09-09] MEDS: DOCUSATE SODIUM 50 MG/SENNA 8.6 MG TAB PO SCH (21:38)
[2017-09-09] MEDS: LACTULOSE SYRUP 20 GM/30 ML CUP PO SCH (21:39)
[2017-09-09] MEDS: SODIUM CHLORIDE 0.9% FLUSH 10 ML FLUSH IV FLUSH SCH (21:39)
--- NOTE | 2017-09-09 23:07 | RADRPT ---
EXAM DATE/TIME: 09/09/2017 21:41 [facility] COMPARISON: No previous studies available for comparison. INDICATIONS : Left leg edema. MEDICAL HISTORY : Hypertension. Arthritis. Cardiovascular disease. Hyperbilirubinemia. ETOH abuse. SURGICAL HISTORY : None. ENCOUNTER: Initial ACUITY: 1 week PAIN SCORE: 3/10 LOCATION: Left leg. TECHNIQUE: Venous ultrasound of the leg was performed from the inguinal ligament to the proximal calf. Real-wang e, color Doppler and spectral tracing, compression and augmentation techniques were used. FINDINGS: There is normal compressibility of the deep venous system from the inguinal region to the proximal ca lf. No echogenic clot is seen in the lumen of the common femoral, femoral, popliteal, and posterior tibial veins. There is a normal response of the venous system to proximal and distal augmentation an d respiration. CONCLUSION: Normal examination. Henok Young MD on September 09, 2017 at 23:06 Board Certified Radiologist. This report was verified electronically.
[2017-09-09] MEDS: ACETAMINOPHEN/HYDROcodone 325 MG/5 MG TAB PO PRN (23:18)
[2017-09-10] VITALS (8 sets, daily range): BP systolic 166–195; BP diastolic 78–93; PULSE 64–82; RESP 17–18; TEMP 97.7–98.2; O2SAT 98–100
[2017-09-10 06:19] LABS: INTERNATIONAL NORMALIZED RATIO 2.2 RATIO; PROTHROMBIN TIME - PATIENT 22.5 SEC (9.8-11.6)
[2017-09-10 06:33] LABS: AUTOMATED NEUTROPHIL # 5.6 TH/MM3 (1.8-7.7); BASOPHIL % 0.3 % (0.0-2.0); EOSINOPHIL # 0.1 TH/MM3 (0-0.4); EOSINOPHIL % 1.8 % (0.0-4.0); HEMATOCRIT 28.8 % (39.0-51.0); LYMPH % 16.7 % (9.0-44.0); LYMPHOCYTE # 1.3 TH/MM3 (1.0-4.8); MEAN CELL VOLUME 105.9 FL (80.0-100.0); MEAN CORPUSCULAR HEMOGLOBIN 36.6 PG (27.0-34.0); MEAN CORPUSCULAR HGB CONC 34.6 % (32.0-36.0); MEAN PLATELET VOLUME 8.9 FL (7.0-11.0); MONO % 11.5 % (0.0-8.0); MONOCYTE # 0.9 TH/MM3 (0-0.9); NEUT % 69.7 % (16.0-70.0); PLATELET COUNT 51 TH/MM3 (150-450); RED BLOOD COUNT 2.72 MIL/MM3 (4.50-5.90); RED CELL DISTRIBUTION WIDTH 17.2 % (11.6-17.2)
[2017-09-10 06:34] LABS: ALBUMIN 1.6 GM/DL (3.4-5.0); AST (GOT) 68 U/L (15-37); BICARBONATE 23.5 MEQ/L (21.0-32.0); BLOOD UREA NITROGEN 11 MG/DL (7-18); CHLORIDE 109 MEQ/L (98-107); CREATININE 1.24 MG/DL (0.60-1.30); GLOMERULAR FILTRATION RATE 59 ML/MIN (>89); GLUCOSE,RANDOM 106 MG/DL (74-106); SODIUM (NA) 141 MEQ/L (136-145)
[2017-09-10 06:36] LABS: TOTAL PROTEIN 7.4 GM/DL (6.4-8.2)
[2017-09-10 06:39] LABS: ALKALINE PHOSPHATASE 92 U/L (45-117); ALT (GPT) 32 U/L (12-78); DIRECT BILIRUBIN ADULT 3.5 MG/DL (0.0-0.2); INDIRECT BILIRUBIN 3.5 MG/DL (0.0-0.8); TOTAL PROTEIN 7.4 GM/DL (6.4-8.2)
[2017-09-10] MEDS: SPIRONOLACTONE 25 MG TAB PO SCH (08:19)
[2017-09-10] MEDS: DOCUSATE SODIUM 50 MG/SENNA 8.6 MG TAB PO SCH ×2 (08:19→21:00)
[2017-09-10] MEDS: PANTOPRAZOLE SOD 40 MG DELAYED RELEASE TAB PO SCH (08:19)
[2017-09-10] MEDS: LACTULOSE SYRUP 20 GM/30 ML CUP PO SCH ×4 (08:19→21:00)
[2017-09-10] MEDS: SODIUM CHLORIDE 0.9% FLUSH 10 ML FLUSH IV FLUSH SCH ×2 (08:20→21:00)
[2017-09-10] MEDS ORDERED: PHYTONADIONE INJ 10 MG in SODIUM CHLORIDE 0.9% INJ 50 ML IV ONE (11:00)
[2017-09-10] MEDS: PROPRANOLOL HCL 20 MG TAB PO SCH ×2 (13:41→21:00)
[2017-09-10] MEDS ORDERED: POTASSIUM CHLORIDE 10 MEQ CONTROLLED RELEASE TAB PO ONE (14:15)
[2017-09-10] MEDS: LISINOPRIL 20 MG TAB PO SCH (16:23)
--- NOTE | 2017-09-10 18:33 | HHI.PR ---
Subjective Remarks Deferred entry, the patient was seen earlier at 1415 hrs. The patient complains of some chest pain in the upper ribs, pain is especially worst when he moves to the side. Blood pressure severely elevated. The patient denies shortness of breath. Feels tired. Objective Vitals Vital Signs Date Time Temp Pulse Resp B/P (MAP) Pulse Ox O2 Delivery O2 Flow Rate FiO2 09/10/17 16:00 98.2 67 18 194/92 (126) 99 09/10/17 12:00 98.0 82 18 174/84 (114) 99 09/10/17 08:00 97.7 74 18 166/78 (107) 99 09/10/17 06:05 77 09/10/17 04:10 98.2 81 17 182/82 (115) 98 09/10/17 00:55 98.2 82 18 195/86 (122) 100 09/10/17 00:18 18 09/09/17 22:38 Room Air 09/09/17 20:15 98.5 77 18 171/80 (110) 99 09/09/17 20:00 71 I/O 09/09/17 09/09/17 09/09/17 09/10/17 09/10/17 09/10/17 07:00 15:00 23:00 07:00 15:00 23:00 Intake Total 480 ml 480 ml Balance 480 ml 480 ml Intake Oral 480 ml 480 ml # Voids 4 3 # Bowel Movements 0 0 Result Diagram: 09/10/17 0545 09/10/17 0545 Imaging Last Impressions Abdomen/Pelvis CT 09/09/17 0833 Signed Impressions: Service Date/Time: Saturday, September 09, 2017 09:09 - CONCLUSION: Extensive ascites with cirrhosis or varicosities. Prominent spleen with possible tiny subcapsular hematoma series 2 image 30. Minimal induration anterior abdominal wall left side. Gilbert Lockett MD FACR Chest X-Ray 09/09/17 0713 Signed Impressions: Service Date/Time: Saturday, September 09, 2017 07:34 - CONCLUSION: 1. No acute abnormality seen. 2. Increased density in the right paratracheal region. Jairo Kelly MD Shoulder X-Ray 09/09/17 0000 Signed Impressions: Service Date/Time: Saturday, September 09, 2017 21:01 - CONCLUSION: 1. No acute bony abnormality. Vito Minor MD Lower Extremity Ultrasound 09/09/17 0000 Signed Impressions: Service Date/Time: Saturday, September 09, 2017 21:41 - CONCLUSION: Normal examination. Henok Young MD Elbow X-Ray 09/09/17 0000 Signed Impressions: Service Date/Time: Saturday, September 09, 2017 20:53 - CONCLUSION: 1. No acute bony abnormalities. Vito Minor MD Objective Remarks GENERAL: This is a thin malnourished, well-developed patient, in no apparent distress. SKIN: No rashes, ecchymoses or lesions. Cool and dry. + Jaundice. HEAD: Atraumatic. Normocephalic. No temporal or scalp tenderness. EYES: Pupils equal round and reactive. Extraocular motions intact. No injection or drainage. + icteric sclera ENT: Nose without bleeding, purulent drainage or septal hematoma. Throat without erythema, tonsillar hypertrophy or exudate. Uvula midline. Airway patent. NECK: Trachea midline. No JVD or lymphadenopathy. Supple, nontender, no meningeal signs. CARDIOVASCULAR: Regular rate and rhythm without murmurs, gallops, or rubs. RESPIRATORY: Clear to auscultation. Breath sounds equal bilaterally. No wheezes , rales, or rhonchi. GASTROINTESTINAL: Abdomen soft, non-tender, + mildly distended with + ascitic fluid wave. No hepato-splenomegaly, or palpable masses. No guarding. MUSCULOSKELETAL: Extremities without clubbing, cyanosis, or edema. No joint tenderness, effusion, or edema noted. No calf tenderness. Negative Homans sign bilaterally. NEUROLOGICAL: Awake and alert. Cranial nerves II through XII intact. Motor and sensory grossly within normal limits. Five out of 5 muscle strength in all muscle groups. Normal speech. Procedures None A/P Problem List: (1) Liver cirrhosis ICD Code: K74.60 - Unspecified cirrhosis of liver Plan: Admit the patient to the medical floor Ultrasound-guided paracentesis GI consultation (2) Spleen hematoma ICD Code: S36.029A - Unspecified contusion of spleen, initial encounter Plan: Awaiting GI recommendations. (3) Hyperbilirubinemia ICD Code: E80.6 - Other disorders of bilirubin metabolism Status: Acute Plan: We will obtain fractionated bilirubin. Suspect elevated bilirubin secondary to ascites and liver disease. 5/8 total bilirubin is slightly improved from 8.2-7.0. Fractionated bilirubin shows similar quantity for direct and indirect bilirubin with 3.5. This is likely an intrinsic liver hyperbilirubinemia. (4) Splenomegaly ICD Code: R16.1 - Splenomegaly, not elsewhere classified Status: Acute Plan: Secondary to portal hypertension secondary to liver cirrhosis. (5) Ascites ICD Code: R18.8 - Other ascites Status: Acute Plan: Ascites secondary to likely alcoholic liver cirrhosis. 5/8 resolved occult from ultrasound. The patient does not have enough fluid to be drained. Will DC the paracentesis. (6) Hypokalemia ICD Code: E87.6 - Hypokalemia Status: Acute Plan: Likely due to poor oral intake. Replace and monitor BMP as needed. The patient's potassium is not much improved. (7) Macrocytic anemia ICD Code: D53.9 - Nutritional anemia, unspecified Status: Chronic Plan: Likely secondary to liver disease, cirrhosis and hyperinsulinism. Continue to monitor CBC, no evidence of active bleeding. (8) HTN (hypertension) ICD Code: I10 - Essential (primary) hypertension Plan: BP still severely elevated with systolic blood pressure into the 180s systolic. I will start the patient on nonselective beta-lynn. Propranolol 20 mg p.o. daily. Also start on lisinopril 20 minutes p.o. daily. Continue clonidine 0.1 mg every 6 hours as needed for systolic blood pressure more than 160. (9) Fall ICD Code: W19.XXXA - Unspecified fall, initial encounter Plan: LUE x ray LLE is edematous -venous Doppler negative for DVT. (10) Left shoulder pain ICD Code: M25.512 - Pain in left shoulder Plan: Status post mechanical fall. X-ray of elbow and shoulder negative for fracture. (11) Edema of left lower extremity ICD Code: R60.0 - Localized edema Plan: Left lower extremity has nonpitting edema more significant than the left lower extremity compared to the right. The patient sustained a trauma increase in the risk of development of DVT. Check ultrasound venous Doppler of the left lower extremity to rule out DVT. (12) Hyperammonemia ICD Code: E72.20 - Disorder of urea cycle metabolism, unspecified Plan: Ammonia slightly elevated at 33. Continue lactulose. Continue to monitor ammonia levels. (13) Coagulopathy ICD Code: D68.9 - Coagulation defect, unspecified Status: Acute Plan: Due to liver disease. Monitor PT/INR. We will give vitamin K IV and start on oral vitamin K. Assessment and Plan DVT prophylaxis: SCDs, no chemo prophylaxis given possibility of the presence of esophageal varices and increased risk of bleeding. GI prophylaxis: PPI. Discharge Planning Continue to monitor the medical floor. GI consultation pending. Problem Qualifiers (1) Ascites: Qualified Codes: R18.8 - Other ascites (2) Left shoulder pain: Qualified Codes: M25.512 - Pain in left shoulder Arie Hodge MD September 10, 2017 18:33
[2017-09-10] MEDS: cloNIDine HCL 0.1 MG TAB PO PRN (22:26)
[2017-09-11] VITALS (8 sets, daily range): BP systolic 75–185; BP diastolic 63–85; PULSE 62–73; RESP 17–21; TEMP 97–98.3; O2SAT 96–100
[2017-09-11] MEDS: PROPRANOLOL HCL 20 MG TAB PO SCH ×2 (05:56→23:32)
[2017-09-11 08:07] LABS: BASOPHIL % 0.4 % (0.0-2.0); EOSINOPHIL # 0.2 TH/MM3 (0-0.4); EOSINOPHIL % 2.9 % (0.0-4.0); HEMATOCRIT 34.5 % (39.0-51.0); HEMOGLOBIN 11.6 GM/DL (13.0-17.0); LYMPH % 20.7 % (9.0-44.0); LYMPHOCYTE # 1.7 TH/MM3 (1.0-4.8); MEAN CELL VOLUME 106.6 FL (80.0-100.0); MEAN CORPUSCULAR HEMOGLOBIN 35.8 PG (27.0-34.0); MEAN CORPUSCULAR HGB CONC 33.6 % (32.0-36.0); MEAN PLATELET VOLUME 8.8 FL (7.0-11.0); MONO % 14.4 % (0.0-8.0); MONOCYTE # 1.2 TH/MM3 (0-0.9); NEUT % 61.6 % (16.0-70.0); PLATELET COUNT 54 TH/MM3 (150-450); RED BLOOD COUNT 3.23 MIL/MM3 (4.50-5.90); RED CELL DISTRIBUTION WIDTH 17.6 % (11.6-17.2); WHITE BLOOD COUNT 8.1 TH/MM3 (4.0-11.0)
[2017-09-11 08:26] LABS: ALBUMIN 1.6 GM/DL (3.4-5.0); BICARBONATE 23.2 MEQ/L (21.0-32.0); CALCIUM 8.1 MG/DL (8.5-10.1); CREATININE 1.09 MG/DL (0.60-1.30); DIRECT BILIRUBIN ADULT 3.8 MG/DL (0.0-0.2)
[2017-09-11 08:29] LABS: INDIRECT BILIRUBIN 4.1 MG/DL (0.0-0.8); TOTAL BILIRUBIN ADULT 7.9 MG/DL (0.2-1.0); TOTAL PROTEIN 7.5 GM/DL (6.4-8.2)
[2017-09-11] MEDS: PHYTONADIONE 5 MG/SWFI 5 ML ORAL SYR PO SCH (09:00)
[2017-09-11] MEDS: DOCUSATE SODIUM 50 MG/SENNA 8.6 MG TAB PO SCH ×2 (09:27→21:12)
[2017-09-11] MEDS: SPIRONOLACTONE 25 MG TAB PO SCH (09:27)
[2017-09-11] MEDS: PANTOPRAZOLE SOD 40 MG DELAYED RELEASE TAB PO SCH (09:27)
[2017-09-11] MEDS: LISINOPRIL 20 MG TAB PO SCH (09:27)
[2017-09-11] MEDS: SODIUM CHLORIDE 0.9% FLUSH 10 ML FLUSH IV FLUSH PRN (09:28)
[2017-09-11] MEDS: LACTULOSE SYRUP 20 GM/30 ML CUP PO SCH ×2 (09:28→21:12)
--- NOTE | 2017-09-11 10:24 | EKG ---
Date Performed: 09/09/2017 Time Performed: 09:59:23 PTAGE: 62 years EKG: Sinus rhythm MINIMAL VOLTAGE CRITERIA FOR LVH, CONSIDER NORMAL VARIANT BORDERLINE ECG PREVIOUS TRACING : 09/23/2008 18.15 DOCTOR: Henok Alejandro Interpretating Date/Time 09/11/2017 10:23:49
--- NOTE | 2017-09-11 10:58 | PD.CONS ---
HPI History of Present Illness This is a 62 year old male with hx etoh abuse, GIB who presented after a fall. GI is consulted for cirrhosis. Pt denies abd pain, n/v, blood in stool, black tarry stool. He admits "heartburn real bad" that he takes medication for but can provide no further details as he is quite lethargic. He admits drinking "not too much, a few beers." CT showed cirrhosis, ascites, varices, prominent spleen. Per EMR he had an EGD by Dr Tello in 2008 revealing pangastritis. Poor historian. (Giselle Mittal) PFSH Past Medical History heartburn per pt 1. Substance abuse. 2. Bleeding ulcer. 3. Anxiety. 4. Hypertension. These were obtained from medical records. The patient denies any medical problems. Past Surgical History Denies any major surgeries. (Giselle Mittal) Coded Allergies: No Known Allergies (Verified Adverse Reaction, Unknown, 09/09/17) Family History Denies family history of CAD, hypertension, cancer, cirrhosis. Social History "few beers" daily 5-6 cigarettes daily denies illicit drug use (Giselle Mittal) Review of Systems Gastrointestinal: DENIES: Abdominal pain, Black stools, Bloody stools, Nausea, Vomiting, Hematemesis otherwise noncontributory (Giselle Mittal) GI Exam Vitals I&O Vital Signs Date Time Temp Pulse Resp B/P (MAP) Pulse Ox O2 Delivery O2 Flow Rate FiO2 09/11/17 08:00 98.1 63 18 183/84 (117) 100 09/11/17 04:25 98.0 63 17 155/76 (102) 100 09/11/17 04:00 62 09/11/17 00:20 97.7 72 17 75/ 99 09/11/17 00:00 69 09/10/17 20:45 98.1 65 17 190/93 (125) 99 09/10/17 16:00 98.2 67 18 194/92 (126) 99 09/10/17 12:00 98.0 82 18 174/84 (114) 99 I/O 09/10/17 09/10/17 09/10/17 09/11/17 09/11/17 09/11/17 07:00 15:00 23:00 07:00 15:00 23:00 Intake Total 480 ml 480 ml 480 ml Output Total 650 ml Balance 480 ml 480 ml -170 ml Intake Oral 480 ml 480 ml 480 ml Output Urine Total 650 ml # Voids 4 3 # Bowel Movements 0 0 1 0 Imaging Last Impressions Abdomen/Pelvis CT 09/09/17 0833 Signed Impressions: Service Date/Time: Saturday, September 09, 2017 09:09 - CONCLUSION: Extensive ascites with cirrhosis or varicosities. Prominent spleen with possible tiny subcapsular hematoma series 2 image 30. Minimal induration anterior abdominal wall left side. Gilbert Lockett MD FACR Chest X-Ray 09/09/17 0713 Signed Impressions: Service Date/Time: Saturday, September 09, 2017 07:34 - CONCLUSION: 1. No acute abnormality seen. 2. Increased density in the right paratracheal region. Jairo Kelly MD Shoulder X-Ray 09/09/17 0000 Signed Impressions: Service Date/Time: Saturday, September 09, 2017 21:01 - CONCLUSION: 1. No acute bony abnormality. Vito Minor MD Lower Extremity Ultrasound 09/09/17 0000 Signed Impressions: Service Date/Time: Saturday, September 09, 2017 21:41 - CONCLUSION: Normal examination. Henok Young MD Elbow X-Ray 09/09/17 0000 Signed Impressions: Service Date/Time: Saturday, September 09, 2017 20:53 - CONCLUSION: 1. No acute bony abnormalities. Vito Minor MD Laboratory Test 09/11/17 07:18 White Blood Count 8.1 TH/MM3 Red Blood Count 3.23 MIL/MM3 Hemoglobin 11.6 GM/DL Hematocrit 34.5 % Mean Corpuscular Volume 106.6 FL Mean Corpuscular Hemoglobin 35.8 PG Mean Corpuscular Hemoglobin Concent 33.6 % Red Cell Distribution Width 17.6 % Platelet Count 54 TH/MM3 Mean Platelet Volume 8.8 FL Neutrophils (%) (Auto) 61.6 % Lymphocytes (%) (Auto) 20.7 % Monocytes (%) (Auto) 14.4 % Eosinophils (%) (Auto) 2.9 % Basophils (%) (Auto) 0.4 % Neutrophils # (Auto) 5.0 TH/MM3 Lymphocytes # (Auto) 1.7 TH/MM3 Monocytes # (Auto) 1.2 TH/MM3 Eosinophils # (Auto) 0.2 TH/MM3 Basophils # (Auto) 0.0 TH/MM3 CBC Comment AUTO DIFF Differential Comment AUTO DIFF CONFIRMED Platelet Estimate LOW Platelet Morphology Comment NORMAL Blood Urea Nitrogen 11 MG/DL Creatinine 1.09 MG/DL Random Glucose 80 MG/DL Total Protein 7.5 GM/DL Albumin 1.6 GM/DL Calcium Level 8.1 MG/DL Alkaline Phosphatase 81 U/L Aspartate Amino Transf (AST/SGOT) 67 U/L Alanine Aminotransferase (ALT/SGPT) 33 U/L Total Bilirubin 7.9 MG/DL Direct Bilirubin 3.8 MG/DL Sodium Level 142 MEQ/L Potassium Level 3.8 MEQ/L Chloride Level 112 MEQ/L Carbon Dioxide Level 23.2 MEQ/L Anion Gap 7 MEQ/L Estimat Glomerular Filtration Rate 68 ML/MIN Indirect Bilirubin 4.1 MG/DL Physical Examination HEENT: normocephalic; atraumatic +icterus CHEST: wheezes CARDIAC: RRR ABDOMEN: semifirm, distended, abd hernia, nontender; no hepatosplenomegaly; bowel sounds are present in all four quadrants. EXTREMITIES: No clubbing, cyanosis, or edema. 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 DF 56. CT showing cirrhosis, ascites, varices, prominent spleen per US not enough fluid to drain. will get liver w/u r/o other cause - elevated NH - lethargic. on lactulose - anemia - mild. macrocytic. 2/2 cirrhosis. distant hx GIB. EGD 2008 showed pangastritis. no obvious GI bleeding at this time although he does have varices, CT as above - coagulopathy - thrombocytopenia PLAN - cont lactulose - cont inderal - consider steroids - consider replacing albumin - liver w/u - etoh cessation - monitor labs - transfuse as needed - supportive care pt seen by myself and Dr Dominguez and this note is on his behalf (Giselle Mittal) Physician Comments Seen and examined with ALESSIO, liver bradley in progress. Egd tomorrow. Discussed with the patient. Paracentesis if feasible. Thank you (Med Dominguez MD) Giselle Mittal September 11, 2017 10:58 Med Dominguez MD September 11, 2017 14:21
--- NOTE | 2017-09-11 16:19 | HHI.PR ---
Subjective Remarks Patient states got up to chair and pain in ribs came back Feels better now Denies cp Denies nausea, vomiting or abdominal pain Afebrile Objective Vitals Vital Signs Date Time Temp Pulse Resp B/P (MAP) Pulse Ox O2 Delivery O2 Flow Rate FiO2 09/11/17 12:00 98.3 73 18 138/63 (88) 96 09/11/17 08:00 98.1 63 18 183/84 (117) 100 09/11/17 04:25 98.0 63 17 155/76 (102) 100 09/11/17 04:00 62 09/11/17 00:20 97.7 72 17 75/ 99 09/11/17 00:00 69 09/10/17 20:45 98.1 65 17 190/93 (125) 99 I/O 09/10/17 09/10/17 09/10/17 09/11/17 09/11/17 09/11/17 07:00 15:00 23:00 07:00 15:00 23:00 Intake Total 480 ml 480 ml 480 ml Output Total 650 ml Balance 480 ml 480 ml -170 ml Intake Oral 480 ml 480 ml 480 ml Output Urine Total 650 ml # Voids 4 3 # Bowel Movements 0 0 1 0 Result Diagram: 09/11/1771709/11/17717 Objective Remarks GENERAL: This is a thin malnourished, well-developed patient, in no apparent distress. SKIN: No rashes, ecchymoses or lesions. Cool and dry. + Jaundice. HEAD: Atraumatic. Normocephalic. No temporal or scalp tenderness. EYES: Pupils equal round and reactive. Extraocular motions intact. No injection or drainage. + icteric sclera ENT: Nose without bleeding, purulent drainage or septal hematoma. Throat without erythema, tonsillar hypertrophy or exudate. Uvula midline. Airway patent. NECK: Trachea midline. No JVD or lymphadenopathy. Supple, nontender, no meningeal signs. CARDIOVASCULAR: Regular rate and rhythm without murmurs, gallops, or rubs. RESPIRATORY: Clear to auscultation. Breath sounds equal bilaterally. No wheezes , rales, or rhonchi. GASTROINTESTINAL: Abdomen soft, non-tender, + mildly distended with + ascitic fluid wave. No hepato-splenomegaly, or palpable masses. No guarding. MUSCULOSKELETAL: Extremities without clubbing, cyanosis, or edema. No joint tenderness, effusion, or edema noted. No calf tenderness. Negative Homans sign bilaterally. NEUROLOGICAL: Awake and alert. Cranial nerves II through XII intact. Motor and sensory grossly within normal limits. Five out of 5 muscle strength in all muscle groups. Normal speech. Procedures None Medications and IVs Current Medications Medications (Trade) Dose Ordered Sig/Tosin Route Start Time Stop Time Status Last Admin (NS Flush) 2 ml UNSCH PRN IV FLUSH 09/09/17 09:15 09/11/17 09:28 (NS Flush) 2 ml BID IV FLUSH 09/09/17 21:00 09/10/17 21:00 (Zofran Inj) 4 mg Q6H PRN IVP 09/09/17 09:15 (Narcan Inj) 0.4 mg UNSCH PRN IV PUSH 09/09/17 09:15 (Toña-Colace) 1 tab BID PO 09/09/17 21:00 09/11/17 09:27 (Milk Of Magnesia Liq) 30 ml Q12H PRN PO 09/09/17 09:15 (Senokot) 17.2 mg Q12H PRN PO 09/09/17 09:15 (Dulcolax Supp) 10 mg DAILY PRN RECTAL 09/09/17 09:15 (Romazicon Inj) 0.2 mg Q1M PRN IV PUSH 09/09/17 20:00 (Ativan) 1 mg Q4H PRN PO 09/09/17 20:00 (Ativan Inj) 1 mg Q4H PRN IV PUSH 09/09/17 20:00 (Ativan) 2 mg Q2H PRN PO 09/09/17 20:00 (Ativan Inj) 2 mg Q2H PRN IV PUSH 09/09/17 20:00 (Ativan Inj) 2 mg Q1H PRN IV PUSH 09/09/17 20:00 (Ativan Inj) 2 mg Q15M PRN IV PUSH 09/09/17 20:00 (Lactulose Liq) 30 ml QID PO 09/09/17 21:00 09/11/17 09:28 (Aldactone) 25 mg DAILY PO 09/09/17 20:00 09/11/17 09:27 (Catapres) 0.1 mg Q6H PRN PO 09/09/17 20:00 (Protonix) 40 mg DAILY PO 09/10/17 09:00 09/11/17 09:27 (Olema 5-325 Mg) 1 tab Q6H PRN PO 09/09/17 23:15 09/09/17 23:18 (Mephyton Liq) 5 mg DAILY PO 09/11/17 09:00 (Catapres) 0.1 mg Q6H PRN PO 09/10/17 12:45 09/10/17 22:26 (Inderal) 20 mg Q8HR PO 09/10/17 14:00 09/11/17 05:56 (Prinivil) 20 mg DAILY PO 09/10/17 14:30 09/11/17 09:27 A/P Problem List: (1) Liver cirrhosis ICD Code: K74.60 - Unspecified cirrhosis of liver (2) Spleen hematoma ICD Code: S36.029A - Unspecified contusion of spleen, initial encounter (3) Hyperbilirubinemia ICD Code: E80.6 - Other disorders of bilirubin metabolism Status: Acute (4) Splenomegaly ICD Code: R16.1 - Splenomegaly, not elsewhere classified Status: Acute (5) Ascites ICD Code: R18.8 - Other ascites Status: Acute (6) Hypokalemia ICD Code: E87.6 - Hypokalemia Status: Acute (7) Macrocytic anemia ICD Code: D53.9 - Nutritional anemia, unspecified Status: Chronic (8) HTN (hypertension) ICD Code: I10 - Essential (primary) hypertension (9) Fall ICD Code: W19.XXXA - Unspecified fall, initial encounter (10) Left shoulder pain ICD Code: M25.512 - Pain in left shoulder (11) Edema of left lower extremity ICD Code: R60.0 - Localized edema (12) Hyperammonemia ICD Code: E72.20 - Disorder of urea cycle metabolism, unspecified (13) Coagulopathy ICD Code: D68.9 - Coagulation defect, unspecified Status: Acute Assessment and Plan (1) Liver cirrhosis Plan: Admited patient to the medical floor Ultrasound-guided paracentesis 09/11 appreciate GI recommendations. The patient currently undergoing liver workup, EGD planned for tomorrow. (2) Spleen hematoma Plan: Possibly due to coagulopathy. Gi following. (3) Hyperbilirubinemia Plan: We will obtain fractionated bilirubin. Suspect elevated bilirubin secondary to ascites and liver disease. 09/10 total bilirubin is slightly improved from 8.2-7.0. Fractionated bilirubin shows similar quantity for direct and indirect bilirubin with 3.5. This is likely an intrinsic liver hyperbilirubinemia. 09/11 continue to monitor LFTs. (4) Splenomegaly Plan: Secondary to portal hypertension secondary to liver cirrhosis. (5) Ascites Plan: Ascites secondary to likely alcoholic liver cirrhosis. 09/10 resolved occult from ultrasound. The patient does not have enough fluid to be drained. Will DC the paracentesis. (6) Hypokalemia Plan: Likely due to poor oral intake. Replace and monitor BMP as needed. The patient's potassium is normal. (7) Macrocytic anemia Plan: Likely secondary to liver disease, cirrhosis and hyperinsulinism. Continue to monitor CBC, no evidence of active bleeding. (8) HTN (hypertension) Plan: BP still severely elevated with systolic blood pressure into the 180s systolic. I will start the patient on nonselective beta-lynn. Propranolol 20 mg p.o. daily. Also start on lisinopril 20 minutes p.o. daily. Continue clonidine 0.1 mg every 6 hours as needed for systolic blood pressure more than 160. 09/11 BPO seems to be improving. (9) Fall Plan: Elbow x-ray did not show any acute bony abnormalities. LLE is edematous -venous Doppler negative for DVT. (10) Left shoulder pain ICD Code: M25.512 - Pain in left shoulder Plan: Status post mechanical fall. X-ray of elbow and shoulder negative for fracture. (11) Edema of left lower extremity ICD Code: R60.0 - Localized edema Plan: Left lower extremity has nonpitting edema more significant than the left lower extremity compared to the right. The patient sustained a trauma increase in the risk of development of DVT. Mild DVT by Doppler ultrasound. (12) Hyperammonemia ICD Code: E72.20 - Disorder of urea cycle metabolism, unspecified Plan: Ammonia slightly elevated at 33. Continue lactulose. Continue to monitor ammonia levels. (13) Coagulopathy ICD Code: D68.9 - Coagulation defect, unspecified Status: Acute Plan: Due to liver disease. Monitor PT/INR. We will give vitamin K IV and start on oral vitamin K. DVT prophylaxis: SCDs, no chemo prophylaxis given possibility of the presence of esophageal varices and increased risk of bleeding. GI prophylaxis: PPI. Discharge Planning Continue to monitor the medical floor. For EGD in a.m. Problem Qualifiers (1) Ascites: Qualified Codes: R18.8 - Other ascites (2) Left shoulder pain: Qualified Codes: M25.512 - Pain in left shoulder Arie Hodge MD September 11, 2017 16:19
[2017-09-11] MEDS: SODIUM CHLORIDE 0.9% FLUSH 10 ML FLUSH IV FLUSH SCH (21:00)
[2017-09-11] MEDS ORDERED: CHLORHEXIDINE GLUCONATE 2 % 1 PACK (2 CLOTHS) TOPICAL PRN (23:00)
[2017-09-11] MEDS ORDERED: METOPROLOL TARTRATE 25 MG TAB PO PRN (23:00)
[2017-09-11] MEDS ORDERED: LACTATED RINGER'S 1000 ML IV PRN (23:00)
[2017-09-11] MEDS ORDERED: INSULIN HUMAN REGULAR 1,000 UNITS/10 ML VIAL SQ PRN (23:00)
[2017-09-11] MEDS ORDERED: SODIUM CHLORID 0.9% 500 ML IV PRN (23:00)
[2017-09-11] MEDS ORDERED: POVIDONE IODINE 5% (ANTISEPSIS KIT) 4 APPLICATIONS EACH NARE PRN (23:00)
[2017-09-12] VITALS (12 sets, daily range): BP systolic 118–186; BP diastolic 57–84; PULSE 58–81; RESP 16–20; TEMP 97–99; O2SAT 96–100
[2017-09-12] MEDS: PROPRANOLOL HCL 20 MG TAB PO SCH ×3 (05:26→21:54)
[2017-09-12 05:39] LABS: % SATURATION IRON PROFILE 64.1 % (20-50); IRON (FE) 131 MCG/DL (65-175); TOTAL IRON BINDING CAPACITY 204 MCG/DL (250-450)
[2017-09-12 05:41] LABS: FERRITIN 215 NG/ML (26-388)
[2017-09-12] MEDS: SPIRONOLACTONE 25 MG TAB PO SCH (08:20)
[2017-09-12] MEDS: LISINOPRIL 20 MG TAB PO SCH (08:21)
[2017-09-12] MEDS: SODIUM CHLORIDE 0.9% FLUSH 10 ML FLUSH IV FLUSH SCH ×2 (08:22→21:55)
[2017-09-12] MEDS: DOCUSATE SODIUM 50 MG/SENNA 8.6 MG TAB PO SCH ×2 (08:54→21:54)
[2017-09-12] MEDS: LACTULOSE SYRUP 20 GM/30 ML CUP PO SCH ×4 (08:54→21:54)
[2017-09-12] MEDS: PHYTONADIONE 5 MG/SWFI 5 ML ORAL SYR PO SCH (09:00)
[2017-09-12] MEDS ORDERED: LIDOCAINE HCL 1% PF 5 ML SYRINGE OTHER ONE (12:00)
[2017-09-12] MEDS ORDERED: PROPOFOL 200 MG/20 ML AMP IV ONE (12:00)
--- NOTE | 2017-09-12 12:49 | GIPROC ---
[facility] [address] [facility]. [facility], [address] EGD PROCEDURE REPORT EXAM DATE: 09/12/2017 PATIENT NAME: Malik Valentine MR #: [id number] BIRTHDATE: 1955 ATTENDING: Med Dominguez MD ORDER #: [id number] BUNDLES HANGER: Julienne Castro RN STATUS: inpatient INDICATIONS: The patient is a 62 yr old male here for an EGD due to Cirrhosis PROCEDURE PERFORMED: EGD, diagnostic MEDICATIONS: None and Per Anesthesia. TOPICAL ANESTHETIC: CONSENT: The patient understands the risks and benefits of the procedure and understands that these risks include, but are not limited to: sedation, allergic reaction, infection, perforation and/or bleeding. Alternative means of evaluation and treatment include, among others: physical exam, x-rays, and/or surgical intervention. The patient elects to proceed with this endoscopic procedure. medical equipment was checked for proper function. Hand hygiene and appropriate measures for infection prevention was taken. After the risks, benefits and alternatives of the procedure were thoroughly explained, Informed consent was verified, confirmed and timeout was successfully executed by the treatment team. The patient was anesthetized with topical anesthesia and the Pentax [id number] endoscope was introduced through the mouth and advanced to the second portion of the duodenum. Retroflexed views revealed no abnormalities The gastroscope was then slowly withdrawn and removed. ESOPHAGUS: There was LA Class B esophagitis noted. STOMACH: There was erythematous moderate gastritis in the gastric antrum. Severe portal hypertensive gastropathy was found in the gastric body and gastric fundus. DUODENUM: Moderate duodenal inflammation was found in the bulb and second portion of the duodenum. ADVERSE EVENTS: There were no complications. IMPRESSIONS: 1. There was LA Class B esophagitis noted 2. There was erythematous gastritis in the gastric antrum 3. Portal hypertensive gastropathy was found in the gastric body and gastric fundus 4. Duodenal inflammation was found in the bulb and second portion of the duodenum 5. Retroflexed views revealed no abnormalities RECOMMENDATIONS: 1. Anti-reflux regimen 2. Continue PPI 3. Avoid NSAIDS PATIENT CONDITION: stable DISPOSITION: Inpatient REPEAT EXAM: Return 6 months EGD Med Dominguez MD eSigned: Med Dominguez MD 09/12/2017 12:49 PM cc: PATIENT NAME: Malik Valentine MR#: [id number]
[2017-09-12] MEDS: PANTOPRAZOLE SOD 40 MG DELAYED RELEASE TAB PO SCH (13:36)
--- NOTE | 2017-09-12 14:20 | HHI.PR ---
Subjective Remarks feels better sitting in chair slept good last night Denies abdominal pain, nausea or vomiting Objective Vitals Vital Signs Date Time Temp Pulse Resp B/P (MAP) Pulse Ox O2 Delivery O2 Flow Rate FiO2 09/12/17 13:18 98.4 68 16 118/57 (77) 100 09/12/17 13:15 98.4 18 118/57 100 09/12/17 12:22 97.8 68 18 148/70 100 09/12/17 12:10 97.8 66 18 149/79 100 09/12/17 11:52 98.4 65 18 149/72 100 09/12/17 11:36 99.0 58 20 160/74 99 09/12/17 10:54 58 18 177/77 (110) 100 09/12/17 09:28 98.1 62 18 164/77 (106) 100 09/12/17 08:00 97.4 81 16 186/81 (116) 96 09/12/17 04:00 97.0 62 20 162/70 (100) 100 09/12/17 00:00 97.6 68 20 153/84 (107) 100 09/11/17 20:00 97.0 66 21 185/85 (118) 98 09/11/17 16:00 97.4 68 18 149/71 (97) 100 I/O 09/11/17 09/11/17 09/11/17 09/12/17 09/12/17 09/12/17 07:00 15:00 23:00 07:00 15:00 23:00 Intake Total 480 ml 720 ml 500 ml 316 ml Output Total 650 ml 100 ml Balance -170 ml 720 ml 500 ml 216 ml Intake Oral 480 ml 720 ml 500 ml Platelets 286 ml Blood Product IV Normal Saline Flush 30 ml Output Urine Total 650 ml 100 ml # Voids 3 6 2 # Bowel Movements 0 0 4 Result Diagram: 09/11/1771709/11/17717 Imaging Last Impressions Abdomen/Pelvis CT 09/09/17832 Signed Impressions: Service Date/Time: Saturday, September 09, 2017 09:09 - CONCLUSION: Extensive ascites with cirrhosis or varicosities. Prominent spleen with possible tiny subcapsular hematoma series 2 image 30. Minimal induration anterior abdominal wall left side. Gilbert Lockett MD FACR Chest X-Ray 09/09/17 07 Signed Impressions: Service Date/Time: Saturday, September 09, 2017 07:34 - CONCLUSION: 1. No acute abnormality seen. 2. Increased density in the right paratracheal region. Jairo Kelly MD Shoulder X-Ray 09/09/17 0000 Signed Impressions: Service Date/Time: Saturday, September 09, 2017 21:01 - CONCLUSION: 1. No acute bony abnormality. Vito Minor MD Lower Extremity Ultrasound 09/09/17 Signed Impressions: Service Date/Time: Saturday, September 09, 2017 21:41 - CONCLUSION: Normal examination. Henok Young MD Elbow X-Ray 09/09/17 Signed Impressions: Service Date/Time: Saturday, September 09, 2017 20:53 - CONCLUSION: 1. No acute bony abnormalities. Vito Minor MD Objective Remarks GENERAL: This is a thin malnourished, well-developed patient, in no apparent distress. SKIN: No rashes, ecchymoses or lesions. Cool and dry. + Jaundice. HEAD: Atraumatic. Normocephalic. No temporal or scalp tenderness. EYES: Pupils equal round and reactive. Extraocular motions intact. No injection or drainage. + icteric sclera ENT: Nose without bleeding, purulent drainage or septal hematoma. Throat without erythema, tonsillar hypertrophy or exudate. Uvula midline. Airway patent. NECK: Trachea midline. No JVD or lymphadenopathy. Supple, nontender, no meningeal signs. CARDIOVASCULAR: Regular rate and rhythm without murmurs, gallops, or rubs. RESPIRATORY: Clear to auscultation. Breath sounds equal bilaterally. No wheezes , rales, or rhonchi. GASTROINTESTINAL: Abdomen soft, non-tender, + mildly distended with + ascitic fluid wave. No hepato-splenomegaly, or palpable masses. No guarding. MUSCULOSKELETAL: Extremities without clubbing, cyanosis, or edema. No joint tenderness, effusion, or edema noted. No calf tenderness. Negative Homans sign bilaterally. NEUROLOGICAL: Awake and alert. Cranial nerves II through XII intact. Motor and sensory grossly within normal limits. Five out of 5 muscle strength in all muscle groups. Normal speech. Procedures None A/P Problem List: (1) Liver cirrhosis ICD Code: K74.60 - Unspecified cirrhosis of liver (2) Spleen hematoma ICD Code: S36.029A - Unspecified contusion of spleen, initial encounter (3) Hyperbilirubinemia ICD Code: E80.6 - Other disorders of bilirubin metabolism Status: Acute (4) Splenomegaly ICD Code: R16.1 - Splenomegaly, not elsewhere classified Status: Acute (5) Ascites ICD Code: R18.8 - Other ascites Status: Acute (6) Hypokalemia ICD Code: E87.6 - Hypokalemia Status: Acute (7) Macrocytic anemia ICD Code: D53.9 - Nutritional anemia, unspecified Status: Chronic (8) HTN (hypertension) ICD Code: I10 - Essential (primary) hypertension (9) Fall ICD Code: W19.XXXA - Unspecified fall, initial encounter (10) Left shoulder pain ICD Code: M25.512 - Pain in left shoulder (11) Edema of left lower extremity ICD Code: R60.0 - Localized edema (12) Hyperammonemia ICD Code: E72.20 - Disorder of urea cycle metabolism, unspecified (13) Coagulopathy ICD Code: D68.9 - Coagulation defect, unspecified Status: Acute Assessment and Plan (1) Liver cirrhosis Plan: Admited patient to the medical floor Ultrasound-guided paracentesis 09/11 appreciate GI recommendations. The patient currently undergoing liver workup, EGD planned for tomorrow. 09/12 SP EGD with the following findings: 1. There was LA Class B esophagitis noted 2. There was erythematous gastritis in the gastric antrum 3. Portal hypertensive gastropathy was found in the gastric body and gastric fundus 4. Duodenal inflammation was found in the bulb and second portion of the duodenum 5. Retroflexed views revealed no abnormalities (2) Spleen hematoma Plan: Possibly due to coagulopathy. Gi following. INR down to 1.7 - continue Vitamin K (3) Hyperbilirubinemia Plan: We will obtain fractionated bilirubin. Suspect elevated bilirubin secondary to ascites and liver disease. 09/10 total bilirubin is slightly improved from 8.2-7.0. Fractionated bilirubin shows similar quantity for direct and indirect bilirubin with 3.5. This is likely an intrinsic liver hyperbilirubinemia. 09/11 continue to monitor LFTs. (4) Splenomegaly Plan: Secondary to portal hypertension secondary to liver cirrhosis. (5) Ascites Plan: Ascites secondary to likely alcoholic liver cirrhosis. 09/10 resolved occult from ultrasound. The patient does not have enough fluid to be drained. Will DC the paracentesis. (6) Hypokalemia Plan: Likely due to poor oral intake. Replace and monitor BMP as needed. The patient's potassium is normal. (7) Macrocytic anemia Plan: Likely secondary to liver disease, cirrhosis and hyperinsulinism. Continue to monitor CBC, no evidence of active bleeding. (8) HTN (hypertension) Plan: BP still severely elevated with systolic blood pressure into the 180s systolic. I will start the patient on nonselective beta-lynn. Propranolol 20 mg p.o. daily. Also start on lisinopril 20 minutes p.o. daily. Continue clonidine 0.1 mg every 6 hours as needed for systolic blood pressure more than 160. 5 BPO seems to be improving. (9) Fall Plan: Elbow x-ray did not show any acute bony abnormalities. LLE is edematous -venous Doppler negative for DVT. (10) Left shoulder pain ICD Code: M25.512 - Pain in left shoulder Plan: Status post mechanical fall. X-ray of elbow and shoulder negative for fracture. (11) Edema of left lower extremity ICD Code: R60.0 - Localized edema Plan: Left lower extremity has nonpitting edema more significant than the left lower extremity compared to the right. The patient sustained a trauma increase in the risk of development of DVT. Mild DVT by Doppler ultrasound. (12) Hyperammonemia ICD Code: E72.20 - Disorder of urea cycle metabolism, unspecified Plan: Ammonia slightly elevated at 33. Continue lactulose. Continue to monitor ammonia levels. (13) Coagulopathy ICD Code: D68.9 - Coagulation defect, unspecified Status: Acute Plan: Due to liver disease. Monitor PT/INR. SP vitamin K IV and start on oral vitamin K. 10 INR trending down - 1.7 today. Continue to monitor PT/INR. DVT prophylaxis: SCDs, no chemo prophylaxis given possibility of the presence of esophageal varices and increased risk of bleeding. GI prophylaxis: PPI. Discharge Planning Possible DC in am. Patient will need SNF placement. Discussed with egg caser. Problem Qualifiers (1) Ascites: Qualified Codes: R18.8 - Other ascites (2) Left shoulder pain: Qualified Codes: M25.512 - Pain in left shoulder Arie Hodge MD September 12, 2017 14:20
[2017-09-12 16:52] LABS: INTERNATIONAL NORMALIZED RATIO 1.7 RATIO; PROTHROMBIN TIME - PATIENT 17.1 SEC (9.8-11.6)
[2017-09-13] VITALS (7 sets, daily range): BP systolic 145–166; BP diastolic 64–79; PULSE 57–69; RESP 15–20; TEMP 97.9–98.3; O2SAT 96–100
[2017-09-13] MEDS: ACETAMINOPHEN/HYDROcodone 325 MG/5 MG TAB PO PRN ×2 (04:29→17:53)
[2017-09-13] MEDS: PROPRANOLOL HCL 20 MG TAB PO SCH ×3 (05:26→21:24)
[2017-09-13] MEDS: SPIRONOLACTONE 25 MG TAB PO SCH (07:58)
[2017-09-13] MEDS: LACTULOSE SYRUP 20 GM/30 ML CUP PO SCH ×4 (07:58→21:24)
[2017-09-13] MEDS: LISINOPRIL 20 MG TAB PO SCH (07:58)
[2017-09-13] MEDS: PANTOPRAZOLE SOD 40 MG DELAYED RELEASE TAB PO SCH (07:58)
[2017-09-13] MEDS: SODIUM CHLORIDE 0.9% FLUSH 10 ML FLUSH IV FLUSH SCH ×2 (07:59→21:25)
[2017-09-13] MEDS: DOCUSATE SODIUM 50 MG/SENNA 8.6 MG TAB PO SCH ×2 (07:59→21:00)
[2017-09-13] MEDS: PHYTONADIONE 5 MG/SWFI 5 ML ORAL SYR PO SCH (07:59)
--- NOTE | 2017-09-13 11:27 | HHI.PR ---
Subjective Remarks Denies cp/sob Afebrile Denies abdominal pain, nausea or vomiting Objective Vitals Vital Signs Date Time Temp Pulse Resp B/P (MAP) Pulse Ox O2 Delivery O2 Flow Rate FiO2 09/13/17 08:00 98.0 57 15 149/72 (97) 98 09/13/17 04:00 98.3 66 19 164/74 (104) 96 09/13/17 04:00 66 09/13/17 00:00 65 09/13/17 00:00 97.9 69 20 154/74 (100) 100 09/12/17 21:56 Room Air 09/12/17 20:25 71 09/12/17 20:00 97.9 69 18 147/70 (95) 100 09/12/17 16:00 98.1 65 16 149/71 (97) 100 09/12/17 13:18 98.4 68 16 118/57 (77) 100 09/12/17 13:15 98.4 18 118/57 100 09/12/17 12:22 97.8 68 18 148/70 100 09/12/17 12:10 97.8 66 18 149/79 100 09/12/17 11:52 98.4 65 18 149/72 100 09/12/17 11:36 99.0 58 20 160/74 99 I/O 09/12/17 09/12/17 09/12/17 09/13/17 09/13/17 09/13/17 07:00 15:00 23:00 07:00 15:00 23:00 Intake Total 500 ml 1116 ml 500 ml Output Total 100 ml Balance 500 ml 1016 ml 500 ml Intake Oral 500 ml 600 ml 500 ml Platelets 286 ml Blood Product IV Normal Saline Flush 30 ml Other 200 ml Output Urine Total 100 ml # Voids 6 6 2 # Bowel Movements 4 0 1 Result Diagram: 09/11/1771709/11/17717 Imaging Last Impressions Abdomen/Pelvis CT 09/09/17832 Signed Impressions: Service Date/Time: Saturday, September 09, 2017 09:09 - CONCLUSION: Extensive ascites with cirrhosis or varicosities. Prominent spleen with possible tiny subcapsular hematoma series 2 image 30. Minimal induration anterior abdominal wall left side. Gilbert Lockett MD FACR Chest X-Ray 09/09/17712 Signed Impressions: Service Date/Time: Saturday, September 09, 2017 07:34 - CONCLUSION: 1. No acute abnormality seen. 2. Increased density in the right paratracheal region. Jairo Kelly MD Shoulder X-Ray 09/09/17 Signed Impressions: Service Date/Time: Saturday, September 09, 2017 21:01 - CONCLUSION: 1. No acute bony abnormality. Vito Minor MD Lower Extremity Ultrasound 09/09/17 Signed Impressions: Service Date/Time: Saturday, September 09, 2017 21:41 - CONCLUSION: Normal examination. Henok Yonug MD Elbow X-Ray 09/09/17 Signed Impressions: Service Date/Time: Saturday, September 09, 2017 20:53 - CONCLUSION: 1. No acute bony abnormalities. Vito Minor MD Objective Remarks GENERAL: This is a thin malnourished, well-developed patient, in no apparent distress. SKIN: No rashes, ecchymoses or lesions. Cool and dry. + Jaundice. HEAD: Atraumatic. Normocephalic. No temporal or scalp tenderness. EYES: Pupils equal round and reactive. Extraocular motions intact. No injection or drainage. + icteric sclera ENT: Nose without bleeding, purulent drainage or septal hematoma. Throat without erythema, tonsillar hypertrophy or exudate. Uvula midline. Airway patent. NECK: Trachea midline. No JVD or lymphadenopathy. Supple, nontender, no meningeal signs. CARDIOVASCULAR: Regular rate and rhythm without murmurs, gallops, or rubs. RESPIRATORY: Clear to auscultation. Breath sounds equal bilaterally. No wheezes , rales, or rhonchi. GASTROINTESTINAL: Abdomen soft, non-tender, + mildly distended with + ascitic fluid wave. No hepato-splenomegaly, or palpable masses. No guarding. MUSCULOSKELETAL: Extremities without clubbing, cyanosis, or edema. No joint tenderness, effusion, or edema noted. No calf tenderness. Negative Homans sign bilaterally. NEUROLOGICAL: Awake and alert. Cranial nerves II through XII intact. Motor and sensory grossly within normal limits. Five out of 5 muscle strength in all muscle groups. Normal speech. Procedures None A/P Problem List: (1) Liver cirrhosis ICD Code: K74.60 - Unspecified cirrhosis of liver (2) Spleen hematoma ICD Code: S36.029A - Unspecified contusion of spleen, initial encounter (3) Hyperbilirubinemia ICD Code: E80.6 - Other disorders of bilirubin metabolism Status: Acute (4) Splenomegaly ICD Code: R16.1 - Splenomegaly, not elsewhere classified Status: Acute (5) Ascites ICD Code: R18.8 - Other ascites Status: Acute (6) Hypokalemia ICD Code: E87.6 - Hypokalemia Status: Acute (7) Macrocytic anemia ICD Code: D53.9 - Nutritional anemia, unspecified Status: Chronic (8) HTN (hypertension) ICD Code: I10 - Essential (primary) hypertension (9) Fall ICD Code: W19.XXXA - Unspecified fall, initial encounter (10) Left shoulder pain ICD Code: M25.512 - Pain in left shoulder (11) Edema of left lower extremity ICD Code: R60.0 - Localized edema (12) Hyperammonemia ICD Code: E72.20 - Disorder of urea cycle metabolism, unspecified (13) Coagulopathy ICD Code: D68.9 - Coagulation defect, unspecified Status: Acute Assessment and Plan (1) Liver cirrhosis Plan: Admited patient to the medical floor Ultrasound-guided paracentesis - Us paracentesis not done since as per us tech report there was not enough fluid to safely drain. 09/11 appreciate GI recommendations. The patient currently undergoing liver workup, EGD planned for tomorrow. 09/12 SP EGD with the following findings: 1. There was LA Class B esophagitis noted 2. There was erythematous gastritis in the gastric antrum 3. Portal hypertensive gastropathy was found in the gastric body and gastric fundus 4. Duodenal inflammation was found in the bulb and second portion of the duodenum 5. Retroflexed views revealed no abnormalities (2) Spleen hematoma Plan: Possibly due to coagulopathy. Gi following. INR down to 1.7 - continue Vitamin K (3) Hyperbilirubinemia Plan: We will obtain fractionated bilirubin. Suspect elevated bilirubin secondary to ascites and liver disease. 09/10 total bilirubin is slightly improved from 8.2-7.0. Fractionated bilirubin shows similar quantity for direct and indirect bilirubin with 3.5. This is likely an intrinsic liver hyperbilirubinemia. 09/11 continue to monitor LFTs. (4) Splenomegaly Plan: Secondary to portal hypertension secondary to liver cirrhosis. (5) Ascites Plan: Ascites secondary to likely alcoholic liver cirrhosis. 09/10 resolved occult from ultrasound. The patient does not have enough fluid to be drained. Will DC the paracentesis. (6) Hypokalemia Plan: Likely due to poor oral intake. Replace and monitor BMP as needed. The patient's potassium is normal. (7) Macrocytic anemia Plan: Likely secondary to liver disease, cirrhosis and hyperinsulinism. Continue to monitor CBC, no evidence of active bleeding. (8) HTN (hypertension) Plan: BP still severely elevated with systolic blood pressure into the 180s systolic. I will start the patient on nonselective beta-lynn. Propranolol 20 mg p.o. daily. Also start on lisinopril 20 minutes p.o. daily. Continue clonidine 0.1 mg every 6 hours as needed for systolic blood pressure more than 160. 5 BP seems to be improving. (9) Fall Plan: Elbow x-ray did not show any acute bony abnormalities. LLE is edematous -venous Doppler negative for DVT. (10) Left shoulder pain ICD Code: M25.512 - Pain in left shoulder Plan: Status post mechanical fall. X-ray of elbow and shoulder negative for fracture. (11) Edema of left lower extremity ICD Code: R60.0 - Localized edema Plan: Left lower extremity has nonpitting edema more significant than the left lower extremity compared to the right. The patient sustained a trauma increase in the risk of development of DVT. DVT ruled out by us. (12) Hyperammonemia ICD Code: E72.20 - Disorder of urea cycle metabolism, unspecified Plan: Ammonia slightly elevated at 33. Continue lactulose. Continue to monitor ammonia levels. (13) Coagulopathy ICD Code: D68.9 - Coagulation defect, unspecified Status: Acute Plan: Due to liver disease. Monitor PT/INR. SP vitamin K IV and start on oral vitamin K. 09/12 INR trending down - 1.7 today. Continue to monitor PT/INR. DVT prophylaxis: SCDs, no chemo prophylaxis given possibility of the presence of esophageal varices and increased risk of bleeding. GI prophylaxis: PPI. Discharge Planning Possible DC in am. Patient will need SNF placement. Discussed with community case manager. Problem Qualifiers (1) Ascites: Qualified Codes: R18.8 - Other ascites (2) Left shoulder pain: Qualified Codes: M25.512 - Pain in left shoulder Arie Hodge MD September 13, 2017 11:27
[2017-09-13 13:30] LABS: ALPHA-1-ANTITRYPSIN 91 mg/dL (100 - 190)
[2017-09-13 14:33] LABS: SMOOTH MUSCLE TOTAL AUTOABS Negative (Negative)
--- NOTE | 2017-09-13 17:01 | HHI.GIFU ---
Subjective Remarks Patient is resting in the bed watching TV States 2 loose BMs today No nausea no vomiting no heartburn complaint No abdominal pain, mild distention noted Objective Vitals I&O Vital Signs Date Time Temp Pulse Resp B/P (MAP) Pulse Ox O2 Delivery O2 Flow Rate FiO2 09/13/17 12:00 97.9 61 16 145/64 (91) 96 09/13/17 08:00 98.0 57 15 149/72 (97) 98 09/13/17 04:00 98.3 66 19 164/74 (104) 96 09/13/17 04:00 66 09/13/17 00:00 65 09/13/17 00:00 97.9 69 20 154/74 (100) 100 09/12/17 21:56 Room Air 09/12/17 20:25 71 09/12/17 20:00 97.9 69 18 147/70 (95) 100 I/O 09/12/17 09/12/17 09/12/17 09/13/17 09/13/17 09/13/17 07:00 15:00 23:00 07:00 15:00 23:00 Intake Total 500 ml 1116 ml 500 ml Output Total 100 ml Balance 500 ml 1016 ml 500 ml Intake Oral 500 ml 600 ml 500 ml Platelets 286 ml Blood Product IV Normal Saline Flush 30 ml Other 200 ml Output Urine Total 100 ml # Voids 6 6 2 # Bowel Movements 4 0 1 Imaging Last Impressions Abdomen/Pelvis CT 09/09/17 0833 Signed Impressions: Service Date/Time: Saturday, September 09, 2017 09:09 - CONCLUSION: Extensive ascites with cirrhosis or varicosities. Prominent spleen with possible tiny subcapsular hematoma series 2 image 30. Minimal induration anterior abdominal wall left side. Gilbert Lockett MD FACR Chest X-Ray 09/09/17 0713 Signed Impressions: Service Date/Time: Saturday, September 09, 2017 07:34 - CONCLUSION: 1. No acute abnormality seen. 2. Increased density in the right paratracheal region. Jairo Kelly MD Shoulder X-Ray 09/09/17 Signed Impressions: Service Date/Time: Saturday, September 09, 2017 21:01 - CONCLUSION: 1. No acute bony abnormality. Vito Minor MD Lower Extremity Ultrasound 09/09/17 Signed Impressions: Service Date/Time: Saturday, September 09, 2017 21:41 - CONCLUSION: Normal examination. Henok Young MD Elbow X-Ray 09/09/17 0000 Signed Impressions: Service Date/Time: Saturday, September 09, 2017 20:53 - CONCLUSION: 1. No acute bony abnormalities. Vito Minor MD Physical Exam HEENT: normocephalic; atraumatic; mild scleral icterus, NECK: Neck is supple, CHEST: Chest is clear to auscultation and percussion. CARDIAC: Regular rate and rhythm with no murmur gallop or rubs. ABDOMEN: Round, soft, mild distention, nontender; positive hepatosplenomegaly, bowel sounds are present in all four quadrants. EXTREMITIES: No edema. SKIN: Mild icterus; no rash CHRONOMETER TESTER: Questions appropriately Assessment and Plan Plan ASSESSMENT - cirrhosis, ascites, jaundice - likely 2/2 etoh, hx etoh abuse and still drinks. DF 56. CT showing cirrhosis, ascites, varices, prominent spleen per US not enough fluid to drain. will get liver w/u r/o other cause - elevated NH - lethargic. on lactulose - anemia - mild. macrocytic. 2/2 cirrhosis. distant hx GIB. EGD 2008 showed pangastritis. no obvious GI bleeding at this time although he does have varices, CT as above - coagulopathy - thrombocytopenia 09/13/2017, patient denies any nausea or vomiting, states BM's 2 today, abdomen soft with mild distention. EGD done on 09/12/2017 shows, LA class B esophagitis, erythematous gastritis in the gastric antrum, portal hypertension gastropathy in the gastric body and gastric fundus, duodenal inflammation found in the bulb and the second portion of the duodenum. Liver workup and reactive hep C, negative anti-smooth muscle antibody AMA , ceruloplasmin pending, alpha 1 antitrypsin low at 91, alpha- fetoprotein 2.3, hepatic cirrhosis probable secondary to hepatitis C. Plan Biopsies pending Continue PPI and keep patient on antireflux regimen Avoid carbonated drinks avoid chocolate avoid NSAIDs Continue lactulose Inderal, steroids Encourage alcohol cessation Supportive care Plan repeat EGD in 6 months, follow GI on an outpatient basis after discharge Vision seen per myself and Dr. Dominguez, note was written on his behalf Irene Mullins September 13, 2017 17:01
[2017-09-14 00:04] VITALS: BP 145/71; PULSE 62; RESP 17; TEMP 98.3; O2SAT 99
[2017-09-14 00:23] VITALS: PULSE 59
[2017-09-14 04:00] VITALS: BP 138/77; PULSE 55; PULSE 57; RESP 17; TEMP 97.6; O2SAT 100
[2017-09-14] MEDS: PROPRANOLOL HCL 20 MG TAB PO SCH ×3 (06:07→21:35)
[2017-09-14 08:00] VITALS: BP 170/81; PULSE 60; RESP 18; TEMP 97.8; O2SAT 100
[2017-09-14] MEDS: PHYTONADIONE 5 MG/SWFI 5 ML ORAL SYR PO SCH (10:00)
[2017-09-14] MEDS: LISINOPRIL 20 MG TAB PO SCH (10:28)
[2017-09-14] MEDS: LACTULOSE SYRUP 20 GM/30 ML CUP PO SCH ×4 (10:34→21:35)
[2017-09-14] MEDS: SODIUM CHLORIDE 0.9% FLUSH 10 ML FLUSH IV FLUSH SCH ×2 (10:34→21:35)
[2017-09-14] MEDS: DOCUSATE SODIUM 50 MG/SENNA 8.6 MG TAB PO SCH ×2 (10:34→21:35)
[2017-09-14] MEDS: PANTOPRAZOLE SOD 40 MG DELAYED RELEASE TAB PO SCH (10:34)
[2017-09-14] MEDS: SPIRONOLACTONE 25 MG TAB PO SCH (10:34)
[2017-09-14] MEDS: ACETAMINOPHEN/HYDROcodone 325 MG/5 MG TAB PO PRN ×3 (10:42→17:00)
[2017-09-14 12:00] VITALS: BP 175/86; PULSE 60; RESP 17; TEMP 97.7; O2SAT 100
--- NOTE | 2017-09-14 13:38 | HHI.GIFU ---
Subjective Remarks Patient is resting in the bed, does note some generalized malaise and fatigue Up in chair and with activity but only with assistance Denies any nausea or vomiting Mild right upper quadrant tenderness to light palpation Appetite fair no nausea no vomiting (Irene Mullins) Objective Vitals I&O Vital Signs Date Time Temp Pulse Resp B/P (MAP) Pulse Ox O2 Delivery O2 Flow Rate FiO2 09/14/17 12:00 97.7 60 17 175/86 (115) 100 09/14/17 08:00 97.8 60 18 170/81 (110) 100 09/14/17 04:00 97.6 57 17 138/77 (97) 100 09/14/17 04:00 55 09/14/17 00:23 59 09/14/17 00:04 98.3 62 17 145/71 (95) 99 09/13/17 21:30 Room Air 09/13/17 20:04 63 09/13/17 20:00 98.2 61 17 166/79 (108) 100 09/13/17 18:53 18 09/13/17 16:00 98.1 60 16 159/71 (100) 99 I/O 09/13/17 09/13/17 09/13/17 09/14/17 09/14/17 09/14/17 07:00 15:00 23:00 07:00 15:00 23:00 Intake Total 500 ml 480 ml 600 ml Balance 500 ml 480 ml 600 ml Intake Oral 500 ml 480 ml 600 ml # Voids 2 3 3 # Bowel Movements 1 3 2 Imaging Last Impressions Abdomen/Pelvis CT 09/09/17 0833 Signed Impressions: Service Date/Time: Saturday, September 09, 2017 09:09 - CONCLUSION: Extensive ascites with cirrhosis or varicosities. Prominent spleen with possible tiny subcapsular hematoma series 2 image 30. Minimal induration anterior abdominal wall left side. Gilbert Lockett MD FACR Chest X-Ray 09/09/17 0713 Signed Impressions: Service Date/Time: Saturday, September 09, 2017 07:34 - CONCLUSION: 1. No acute abnormality seen. 2. Increased density in the right paratracheal region. Jairo Kelly MD Shoulder X-Ray 09/09/17 0000 Signed Impressions: Service Date/Time: Saturday, September 09, 2017 21:01 - CONCLUSION: 1. No acute bony abnormality. Vito Minor MD Lower Extremity Ultrasound 09/09/17 0000 Signed Impressions: Service Date/Time: Saturday, September 09, 2017 21:41 - CONCLUSION: Normal examination. Henok Young MD Elbow X-Ray 09/09/17 0000 Signed Impressions: Service Date/Time: Saturday, September 09, 2017 20:53 - CONCLUSION: 1. No acute bony abnormalities. Vito Mnior MD Physical Exam HEENT: normocephalic; atraumatic; +scleral icterus, NECK: Neck is supple, CHEST: No shortness of breath at rest CARDIAC: Regular rate and rhythm with no murmur gallop or rubs. ABDOMEN: Round, soft, mild distention, RUQ discomfort to mild palpation; positive hepatosplenomegaly, bowel sounds are present in all four quadrants. EXTREMITIES: No edema., thin SKIN: + icterus; no rash VULCANIZER RUBBER PLATE: Questions appropriately (Irene Mullins) Assessment and Plan Plan ASSESSMENT - cirrhosis, ascites, jaundice - likely 2/2 etoh, hx etoh abuse and still drinks. DF 56. CT showing cirrhosis, ascites, varices, prominent spleen per US not enough fluid to drain. will get liver w/u r/o other cause - elevated NH - lethargic. on lactulose - anemia - mild. macrocytic. 2/2 cirrhosis. distant hx GIB. EGD 2008 showed pangastritis. no obvious GI bleeding at this time although he does have varices, CT as above - coagulopathy - thrombocytopenia 09/13/2017, patient denies any nausea or vomiting, states BM's 2 today, abdomen soft with mild distention. EGD done on 09/12/2017 shows, LA class B esophagitis, erythematous gastritis in the gastric antrum, portal hypertension gastropathy in the gastric body and gastric fundus, duodenal inflammation found in the bulb and the second portion of the duodenum. Liver workup and reactive hep C, negative anti-smooth muscle antibody AMA , ceruloplasmin pending, alpha 1 antitrypsin low at 91, alpha- fetoprotein 2.3, hepatic cirrhosis probable secondary to hepatitis C. 09/14/2017, patient notes some mild right upper quadrant tenderness today with light palpation, continues to be fatigued but awake and answers simple questions appropriately. Appetite fair, gradual improvement to patient's symptoms. Encourage patient to be up in chair and to dangle and increase activity as much as he tolerates but for safety reasons not to get up alone. Current hemoglobin 11.6. Ceruloplasmin still pending. Hep C cirrhosis and history of alcohol abuse. No obvious bleeding. Plan Diet heart healthy, encourage calories and snacks PPI antireflux regimen avoid NSAIDs Continue lactulose Inderal steroids Encourage alcohol cessation Supportive care Post EGD biopsies are pending Plan repeat EGD in 6 months, follow GI on an outpatient basis after discharge Patient seen per myself and Dr. Dominguez, note was written on his behalf (Irene Mullins) Physician Comments Seen and examined with ALESSIO, no bleeding. Slow recovery . Colonoscopy as outpatient recommended. GI will sign off. Fu with gi upon dc. Thank you (Med Dominguez MD) Irene Mullins September 14, 2017 13:38 Med Dominguez MD September 14, 2017 15:51
--- NOTE | 2017-09-14 15:50 | HHI.PR ---
Subjective Remarks Feels tired. Denies cp/sob Afebrile Objective Vitals Vital Signs Date Time Temp Pulse Resp B/P (MAP) Pulse Ox O2 Delivery O2 Flow Rate FiO2 09/14/17 12:00 97.7 60 17 175/86 (115) 100 09/14/17 08:00 97.8 60 18 170/81 (110) 100 09/14/17 04:00 97.6 57 17 138/77 (97) 100 09/14/17 04:00 55 09/14/17 00:23 59 09/14/17 00:04 98.3 62 17 145/71 (95) 99 09/13/17 21:30 Room Air 09/13/17 20:04 63 09/13/17 20:00 98.2 61 17 166/79 (108) 100 09/13/17 18:53 18 09/13/17 16:00 98.1 60 16 159/71 (100) 99 I/O 09/13/17 09/13/17 09/13/17 09/14/17 09/14/17 09/14/17 07:00 15:00 23:00 07:00 15:00 23:00 Intake Total 500 ml 480 ml 600 ml Balance 500 ml 480 ml 600 ml Intake Oral 500 ml 480 ml 600 ml # Voids 2 3 3 # Bowel Movements 1 3 2 Result Diagram: 09/11/1771709/11/17717 Objective Remarks GENERAL: This is a thin malnourished, well-developed patient, in no apparent distress. SKIN: No rashes, ecchymoses or lesions. Cool and dry. + Jaundice. HEAD: Atraumatic. Normocephalic. No temporal or scalp tenderness. EYES: Pupils equal round and reactive. Extraocular motions intact. No injection or drainage. + icteric sclera ENT: Nose without bleeding, purulent drainage or septal hematoma. Throat without erythema, tonsillar hypertrophy or exudate. Uvula midline. Airway patent. NECK: Trachea midline. No JVD or lymphadenopathy. Supple, nontender, no meningeal signs. CARDIOVASCULAR: Regular rate and rhythm without murmurs, gallops, or rubs. RESPIRATORY: Clear to auscultation. Breath sounds equal bilaterally. No wheezes , rales, or rhonchi. GASTROINTESTINAL: Abdomen soft, non-tender, + mildly distended with + ascitic fluid wave. No hepato-splenomegaly, or palpable masses. No guarding. MUSCULOSKELETAL: Extremities without clubbing, cyanosis, or edema. No joint tenderness, effusion, or edema noted. No calf tenderness. Negative Homans sign bilaterally. NEUROLOGICAL: Awake and alert. Cranial nerves II through XII intact. Motor and sensory grossly within normal limits. Five out of 5 muscle strength in all muscle groups. Normal speech. Procedures None A/P Problem List: (1) Liver cirrhosis ICD Code: K74.60 - Unspecified cirrhosis of liver (2) Spleen hematoma ICD Code: S36.029A - Unspecified contusion of spleen, initial encounter (3) Hyperbilirubinemia ICD Code: E80.6 - Other disorders of bilirubin metabolism Status: Acute (4) Splenomegaly ICD Code: R16.1 - Splenomegaly, not elsewhere classified Status: Acute (5) Ascites ICD Code: R18.8 - Other ascites Status: Acute (6) Hypokalemia ICD Code: E87.6 - Hypokalemia Status: Acute (7) Macrocytic anemia ICD Code: D53.9 - Nutritional anemia, unspecified Status: Chronic (8) HTN (hypertension) ICD Code: I10 - Essential (primary) hypertension (9) Fall ICD Code: W19.XXXA - Unspecified fall, initial encounter (10) Left shoulder pain ICD Code: M25.512 - Pain in left shoulder (11) Edema of left lower extremity ICD Code: R60.0 - Localized edema (12) Hyperammonemia ICD Code: E72.20 - Disorder of urea cycle metabolism, unspecified (13) Coagulopathy ICD Code: D68.9 - Coagulation defect, unspecified Status: Acute Assessment and Plan (1) Liver cirrhosis Plan: Admited patient to the medical floor Ultrasound-guided paracentesis - Us paracentesis not done since as per us tech report there was not enough fluid to safely drain. 09/11 appreciate GI recommendations. The patient currently undergoing liver workup, EGD planned for tomorrow. 09/12 SP EGD with the following findings: 1. There was LA Class B esophagitis noted 2. There was erythematous gastritis in the gastric antrum 3. Portal hypertensive gastropathy was found in the gastric body and gastric fundus 4. Duodenal inflammation was found in the bulb and second portion of the duodenum 5. Retroflexed views revealed no abnormalities (2) Spleen hematoma Plan: Possibly due to coagulopathy. Gi following. INR down to 1.7 - continue Vitamin K (3) Hyperbilirubinemia Plan: We will obtain fractionated bilirubin. Suspect elevated bilirubin secondary to ascites and liver disease. 09/10 total bilirubin is slightly improved from 8.2-7.0. Fractionated bilirubin shows similar quantity for direct and indirect bilirubin with 3.5. This is likely an intrinsic liver hyperbilirubinemia. 09/14 continue to monitor LFTs. (4) Splenomegaly Plan: Secondary to portal hypertension secondary to liver cirrhosis. (5) Ascites Plan: Ascites secondary to likely alcoholic liver cirrhosis. 09/10 resolved occult from ultrasound. The patient does not have enough fluid to be drained. Will DC the paracentesis. (6) Hypokalemia Plan: Likely due to poor oral intake. Replace and monitor BMP as needed. The patient's potassium is normal. (7) Macrocytic anemia Plan: Likely secondary to liver disease, cirrhosis and hyperinsulinism. Continue to monitor CBC, no evidence of active bleeding. (8) HTN (hypertension) Plan: BP still severely elevated with systolic blood pressure into the 180s systolic. I will start the patient on nonselective beta-lynn. Propranolol 20 mg p.o. daily. Also start on lisinopril 20 minutes p.o. daily. Continue clonidine 0.1 mg every 6 hours as needed for systolic blood pressure more than 160. 09/11 BP seems to be improving. (9) Fall Plan: Elbow x-ray did not show any acute bony abnormalities. LLE is edematous -venous Doppler negative for DVT. (10) Left shoulder pain ICD Code: M25.512 - Pain in left shoulder Plan: Status post mechanical fall. X-ray of elbow and shoulder negative for fracture. (11) Edema of left lower extremity ICD Code: R60.0 - Localized edema Plan: Left lower extremity has nonpitting edema more significant than the left lower extremity compared to the right. The patient sustained a trauma increase in the risk of development of DVT. DVT ruled out by us. (12) Hyperammonemia ICD Code: E72.20 - Disorder of urea cycle metabolism, unspecified Plan: Ammonia slightly elevated at 33. Continue lactulose. Continue to monitor ammonia levels. (13) Coagulopathy ICD Code: D68.9 - Coagulation defect, unspecified Status: Acute Plan: Due to liver disease. Monitor PT/INR. SP vitamin K IV and start on oral vitamin K. 5/10 INR trending down - 1.7 today. Continue to monitor PT/INR. DVT prophylaxis: SCDs, no chemo prophylaxis given possibility of the presence of esophageal varices and increased risk of bleeding. GI prophylaxis: PPI. Called the patient's daughter and discussed the case and explained the patient' s situation. Discharge Planning Patient will need SNF placement. Discussed with case picker. Difficult placement as per CM. Dc pending placement Problem Qualifiers (1) Ascites: Qualified Codes: R18.8 - Other ascites (2) Left shoulder pain: Qualified Codes: M25.512 - Pain in left shoulder Arie Hodge MD September 14, 2017 15:50
[2017-09-14 20:00] VITALS: BP 171/86; PULSE 64; RESP 17; TEMP 98.2; O2SAT 100
[2017-09-14 23:52] LABS: CERULOPLASMIN 26 mg/dL (18-36)
[2017-09-15] VITALS (7 sets, daily range): BP systolic 153–186; BP diastolic 72–105; PULSE 59–64; RESP 16–18; TEMP 98–98.7; O2SAT 97–100
[2017-09-15] MEDS: cloNIDine HCL 0.1 MG TAB PO PRN ×2 (00:26→19:47)
[2017-09-15 05:11] LABS: AUTOMATED NEUTROPHIL # 4.6 TH/MM3 (1.8-7.7); BASOPHIL % 0.5 % (0.0-2.0); EOSINOPHIL # 0.2 TH/MM3 (0-0.4); EOSINOPHIL % 2.1 % (0.0-4.0); HEMOGLOBIN 10.8 GM/DL (13.0-17.0); LYMPH % 20.7 % (9.0-44.0); LYMPHOCYTE # 1.5 TH/MM3 (1.0-4.8); MEAN CELL VOLUME 107.4 FL (80.0-100.0); MEAN CORPUSCULAR HEMOGLOBIN 37.4 PG (27.0-34.0); MEAN CORPUSCULAR HGB CONC 34.9 % (32.0-36.0); MEAN PLATELET VOLUME 8.6 FL (7.0-11.0); MONO % 15.6 % (0.0-8.0); MONOCYTE # 1.2 TH/MM3 (0-0.9); NEUT % 61.1 % (16.0-70.0); PLATELET COUNT 65 TH/MM3 (150-450); RED BLOOD COUNT 2.89 MIL/MM3 (4.50-5.90); RED CELL DISTRIBUTION WIDTH 17.8 % (11.6-17.2); WHITE BLOOD COUNT 7.5 TH/MM3 (4.0-11.0)
[2017-09-15 05:33] LABS: ALBUMIN 1.8 GM/DL (3.4-5.0); AST (GOT) 50 U/L (15-37); BLOOD UREA NITROGEN 12 MG/DL (7-18); CALCIUM 8.4 MG/DL (8.5-10.1); CHLORIDE 111 MEQ/L (98-107); CREATININE 1.11 MG/DL (0.60-1.30); GLOMERULAR FILTRATION RATE 67 ML/MIN (>89); GLUCOSE,RANDOM 88 MG/DL (74-106); MAGNESIUM 1.7 MG/DL (1.5-2.5); SODIUM (NA) 141 MEQ/L (136-145)
[2017-09-15 05:34] LABS: ALT (GPT) 30 U/L (12-78); PHOSPHORUS 3.1 MG/DL (2.5-4.9)
[2017-09-15 05:36] LABS: ALKALINE PHOSPHATASE 99 U/L (45-117); TOTAL BILIRUBIN ADULT 6.5 MG/DL (0.2-1.0); TOTAL PROTEIN 7.7 GM/DL (6.4-8.2)
[2017-09-15] MEDS: PROPRANOLOL HCL 20 MG TAB PO SCH ×3 (05:39→22:37)
[2017-09-15] MEDS: PHYTONADIONE 5 MG/SWFI 5 ML ORAL SYR PO SCH (09:00)
[2017-09-15] MEDS: DOCUSATE SODIUM 50 MG/SENNA 8.6 MG TAB PO SCH ×2 (09:00→19:47)
[2017-09-15] MEDS: SODIUM CHLORIDE 0.9% FLUSH 10 ML FLUSH IV FLUSH SCH ×2 (09:38→21:00)
[2017-09-15] MEDS: SPIRONOLACTONE 25 MG TAB PO SCH (09:38)
[2017-09-15] MEDS: LISINOPRIL 20 MG TAB PO SCH (09:38)
[2017-09-15] MEDS: PANTOPRAZOLE SOD 40 MG DELAYED RELEASE TAB PO SCH (09:38)
[2017-09-15] MEDS: LACTULOSE SYRUP 20 GM/30 ML CUP PO SCH ×4 (09:38→19:47)
[2017-09-15] MEDS: ACETAMINOPHEN/HYDROcodone 325 MG/5 MG TAB PO PRN (09:49)
--- NOTE | 2017-09-15 13:21 | HHI.PR ---
Subjective Remarks c/o diarrhea. Feels tired. Denies cp/sob Objective Vitals Vital Signs Date Time Temp Pulse Resp B/P (MAP) Pulse Ox O2 Delivery O2 Flow Rate FiO2 09/15/17 12:00 98.0 60 16 172/79 (110) 100 09/15/17 08:00 98.2 59 16 164/76 (105) 100 09/15/17 04:00 98.4 60 17 153/72 (99) 97 09/15/17 04:00 60 09/15/17 00:01 98.7 63 17 186/83 (117) 100 09/15/17 00:00 64 09/14/17 20:00 98.2 64 17 171/86 (114) 100 09/14/17 20:00 64 I/O 09/14/17 09/14/17 09/14/17 09/15/17 09/15/17 09/15/17 07:00 15:00 23:00 07:00 15:00 23:00 Intake Total 600 ml 960 ml 420 ml Balance 600 ml 960 ml 420 ml Intake Oral 600 ml 960 ml 420 ml # Voids 3 4 3 # Bowel Movements 2 3 2 Result Diagram: 09/15/17 0408 09/15/17 0408 Imaging Last Impressions Abdomen/Pelvis CT 09/09/17 0833 Signed Impressions: Service Date/Time: Saturday, September 09, 2017 09:09 - CONCLUSION: Extensive ascites with cirrhosis or varicosities. Prominent spleen with possible tiny subcapsular hematoma series 2 image 30. Minimal induration anterior abdominal wall left side. Gilbert Lockett MD FACR Chest X-Ray 09/09/1713 Signed Impressions: Service Date/Time: Saturday, September 09, 2017 07:34 - CONCLUSION: 1. No acute abnormality seen. 2. Increased density in the right paratracheal region. Jairo Kelly MD Shoulder X-Ray 09/09/17 0000 Signed Impressions: Service Date/Time: Saturday, September 09, 2017 21:01 - CONCLUSION: 1. No acute bony abnormality. Vito Minor MD Lower Extremity Ultrasound 09/09/17 0000 Signed Impressions: Service Date/Time: Saturday, September 09, 2017 21:41 - CONCLUSION: Normal examination. Henok Young MD Elbow X-Ray 09/09/17 0000 Signed Impressions: Service Date/Time: Saturday, September 09, 2017 20:53 - CONCLUSION: 1. No acute bony abnormalities. Vito Minor MD Objective Remarks GENERAL: This is a thin malnourished, well-developed patient, in no apparent distress. SKIN: No rashes, ecchymoses or lesions. Cool and dry. + Jaundice. HEAD: Atraumatic. Normocephalic. No temporal or scalp tenderness. EYES: Pupils equal round and reactive. Extraocular motions intact. No injection or drainage. + icteric sclera ENT: Nose without bleeding, purulent drainage or septal hematoma. Throat without erythema, tonsillar hypertrophy or exudate. Uvula midline. Airway patent. NECK: Trachea midline. No JVD or lymphadenopathy. Supple, nontender, no meningeal signs. CARDIOVASCULAR: Regular rate and rhythm without murmurs, gallops, or rubs. RESPIRATORY: Clear to auscultation. Breath sounds equal bilaterally. No wheezes , rales, or rhonchi. GASTROINTESTINAL: Abdomen soft, non-tender, + mildly distended with + ascitic fluid wave. No hepato-splenomegaly, or palpable masses. No guarding. MUSCULOSKELETAL: Extremities without clubbing, cyanosis, or edema. No joint tenderness, effusion, or edema noted. No calf tenderness. Negative Homans sign bilaterally. NEUROLOGICAL: Awake and alert. Cranial nerves II through XII intact. Motor and sensory grossly within normal limits. Five out of 5 muscle strength in all muscle groups. Normal speech. Procedures None A/P Problem List: (1) Liver cirrhosis ICD Code: K74.60 - Unspecified cirrhosis of liver (2) Spleen hematoma ICD Code: S36.029A - Unspecified contusion of spleen, initial encounter (3) Hyperbilirubinemia ICD Code: E80.6 - Other disorders of bilirubin metabolism Status: Acute (4) Splenomegaly ICD Code: R16.1 - Splenomegaly, not elsewhere classified Status: Acute (5) Ascites ICD Code: R18.8 - Other ascites Status: Acute (6) Hypokalemia ICD Code: E87.6 - Hypokalemia Status: Acute (7) Macrocytic anemia ICD Code: D53.9 - Nutritional anemia, unspecified Status: Chronic (8) HTN (hypertension) ICD Code: I10 - Essential (primary) hypertension (9) Fall ICD Code: W19.XXXA - Unspecified fall, initial encounter (10) Left shoulder pain ICD Code: M25.512 - Pain in left shoulder (11) Edema of left lower extremity ICD Code: R60.0 - Localized edema (12) Hyperammonemia ICD Code: E72.20 - Disorder of urea cycle metabolism, unspecified (13) Coagulopathy ICD Code: D68.9 - Coagulation defect, unspecified Status: Acute (14) Diarrhea ICD Code: R19.7 - Diarrhea, unspecified Plan: Due to lactulose. Will Assessment and Plan (1) Liver cirrhosis Plan: Admited patient to the medical floor Ultrasound-guided paracentesis - Us paracentesis not done since as per us tech report there was not enough fluid to safely drain. 09/11 appreciate GI recommendations. The patient currently undergoing liver workup, EGD planned for tomorrow. 09/12 SP EGD with the following findings: 1. There was LA Class B esophagitis noted 2. There was erythematous gastritis in the gastric antrum 3. Portal hypertensive gastropathy was found in the gastric body and gastric fundus 4. Duodenal inflammation was found in the bulb and second portion of the duodenum 5. Retroflexed views revealed no abnormalities (2) Spleen hematoma Plan: Possibly due to coagulopathy. Gi following. INR down to 1.7 - continue Vitamin K (3) Hyperbilirubinemia Plan: We will obtain fractionated bilirubin. Suspect elevated bilirubin secondary to ascites and liver disease. 09/10 total bilirubin is slightly improved from 8.2-7.0. Fractionated bilirubin shows similar quantity for direct and indirect bilirubin with 3.5. This is likely an intrinsic liver hyperbilirubinemia. 09/14 continue to monitor LFTs. (4) Splenomegaly Plan: Secondary to portal hypertension secondary to liver cirrhosis. (5) Ascites Plan: Ascites secondary to likely alcoholic liver cirrhosis. 09/10 resolved occult from ultrasound. The patient does not have enough fluid to be drained. Will DC the paracentesis. (6) Hypokalemia Plan: Likely due to poor oral intake. Replace and monitor BMP as needed. The patient's potassium is normal. (7) Macrocytic anemia Plan: Likely secondary to liver disease, cirrhosis and hyperinsulinism. Continue to monitor CBC, no evidence of active bleeding. (8) HTN (hypertension) Plan: BP still severely elevated with systolic blood pressure into the 180s systolic. I will start the patient on nonselective beta-lynn. Propranolol 20 mg p.o. daily. Also start on lisinopril 20 minutes p.o. daily. Continue clonidine 0.1 mg every 6 hours as needed for systolic blood pressure more than 160. 5/13 BP still elevated. Increase lisinopril dose to 20 mg po daily/ Continue Propranolol 40 mg po Q 48 hrs. Start amlodipine 5. (9) Fall Plan: Elbow x-ray did not show any acute bony abnormalities. LLE is edematous -venous Doppler negative for DVT. (10) Left shoulder pain ICD Code: M25.512 - Pain in left shoulder Plan: Status post mechanical fall. X-ray of elbow and shoulder negative for fracture. (11) Edema of left lower extremity ICD Code: R60.0 - Localized edema Plan: Left lower extremity has nonpitting edema more significant than the left lower extremity compared to the right. The patient sustained a trauma increase in the risk of development of DVT. DVT ruled out by us. (12) Hyperammonemia ICD Code: E72.20 - Disorder of urea cycle metabolism, unspecified Plan: Ammonia slightly elevated at 33. Hold lactulose due to diarrhea. Continue to monitor ammonia levels. (13) Coagulopathy ICD Code: D68.9 - Coagulation defect, unspecified Status: Acute Plan: Due to liver disease. Monitor PT/INR. SP vitamin K IV and start on oral vitamin K. 5/10 INR trending down - 1.7 today. Continue to monitor PT/INR. DVT prophylaxis: SCDs, no chemo prophylaxis given possibility of the presence of esophageal varices and increased risk of bleeding. GI prophylaxis: PPI. Called the patient's daughter and discussed the case and explained the patient' s situation. Discharge Planning Patient will need SNF placement. Discussed with transplant case manager. Difficult placement as per CM. Dc pending placement Problem Qualifiers (1) Ascites: Qualified Codes: R18.8 - Other ascites (2) Left shoulder pain: Qualified Codes: M25.512 - Pain in left shoulder (3) Diarrhea: Qualified Codes: R19.7 - Diarrhea, unspecified Arie Hodge MD September 15, 2017 13:21
[2017-09-15] MEDS: FUROSEMIDE 40 MG TAB PO SCH (18:04)
[2017-09-15] MEDS: amLODIPine BESYLATE 5 MG TAB PO SCH (18:04)
[2017-09-16] VITALS (8 sets, daily range): BP systolic 110–167; BP diastolic 58–79; PULSE 55–62; RESP 16–18; TEMP 97.6–98.4; O2SAT 95–100
[2017-09-16 03:50] LABS: MITOCHONDRIAL ABS LESS THAN 20.0 U (<=20.0)
[2017-09-16] MEDS: PROPRANOLOL HCL 20 MG TAB PO SCH ×3 (06:38→22:00)
[2017-09-16] MEDS: SPIRONOLACTONE 25 MG TAB PO SCH (09:35)
[2017-09-16] MEDS: LACTULOSE SYRUP 20 GM/30 ML CUP PO SCH ×4 (09:35→20:21)
[2017-09-16] MEDS: SODIUM CHLORIDE 0.9% FLUSH 10 ML FLUSH IV FLUSH SCH ×2 (09:35→20:21)
[2017-09-16] MEDS: amLODIPine BESYLATE 5 MG TAB PO SCH (09:36)
[2017-09-16] MEDS: PHYTONADIONE 5 MG/SWFI 5 ML ORAL SYR PO SCH (09:36)
[2017-09-16] MEDS: FUROSEMIDE 40 MG TAB PO SCH (09:36)
[2017-09-16] MEDS: LISINOPRIL 20 MG TAB PO SCH (09:36)
[2017-09-16] MEDS: DOCUSATE SODIUM 50 MG/SENNA 8.6 MG TAB PO SCH ×2 (09:36→20:21)
[2017-09-16] MEDS: PANTOPRAZOLE SOD 40 MG DELAYED RELEASE TAB PO SCH (09:37)
[2017-09-16 10:57] LABS: ANA PATTERN NUCLEOLAR
--- NOTE | 2017-09-16 11:17 | HHI.PR ---
Subjective Remarks Mildly confused. Sitting up eating breakfast. Discussed with physical therapy who states that he is total dependent with physical activity and assistance. Objective Vitals Vital Signs Date Time Temp Pulse Resp B/P (MAP) Pulse Ox O2 Delivery O2 Flow Rate FiO2 09/16/17 08:00 97.9 62 16 155/72 (99) 100 09/16/17 04:05 97.9 58 16 167/79 (108) 98 09/16/17 00:05 98.4 61 17 166/74 (104) 97 09/16/17 00:00 60 09/15/17 19:55 98.1 62 18 159/105 (123) 99 09/15/17 16:00 98.1 60 16 161/72 (101) 100 09/15/17 12:00 98.0 60 16 172/79 (110) 100 I/O 09/15/17 09/15/17 09/15/17 09/16/17 09/16/17 09/16/17 07:00 15:00 23:00 07:00 15:00 23:00 Intake Total 420 ml 480 ml 360 ml Balance 420 ml 480 ml 360 ml Intake Oral 420 ml 480 ml 360 ml # Voids 3 4 4 # Bowel Movements 2 2 0 Result Diagram: 09/15/17 0408 09/15/17 040 Objective Remarks GENERAL: This is a well-nourished, well-developed patient, in no apparent distress. CARDIOVASCULAR: Regular rate and rhythm RESPIRATORY: Clear to auscultation. Breath sounds equal bilaterally. No wheezes , rales, or rhonchi. GASTROINTESTINAL: Abdomen soft, non-tender, nondistended. Normal active bowel sounds MUSCULOSKELETAL: Extremities without clubbing, cyanosis, 1+ edema. NEURO: Alert & Oriented x2 to person, place only. Moves all ext x4 Procedures None A/P Problem List: (1) Liver cirrhosis ICD Code: K74.60 - Unspecified cirrhosis of liver (2) Spleen hematoma ICD Code: S36.029A - Unspecified contusion of spleen, initial encounter Status: Acute (3) Hyperbilirubinemia ICD Code: E80.6 - Other disorders of bilirubin metabolism Status: Acute (4) Splenomegaly ICD Code: R16.1 - Splenomegaly, not elsewhere classified Status: Chronic (5) Ascites ICD Code: R18.8 - Other ascites Status: Chronic (6) Hypokalemia ICD Code: E87.6 - Hypokalemia Status: Acute (7) Macrocytic anemia ICD Code: D53.9 - Nutritional anemia, unspecified Status: Chronic (8) HTN (hypertension) ICD Code: I10 - Essential (primary) hypertension Status: Chronic (9) Fall ICD Code: W19.XXXA - Unspecified fall, initial encounter Status: Acute (10) Left shoulder pain ICD Code: M25.512 - Pain in left shoulder (11) Edema of left lower extremity ICD Code: R60.0 - Localized edema (12) Hyperammonemia ICD Code: E72.20 - Disorder of urea cycle metabolism, unspecified (13) Coagulopathy ICD Code: D68.9 - Coagulation defect, unspecified Status: Acute (14) Diarrhea ICD Code: R19.7 - Diarrhea, unspecified Assessment and Plan 1) Liver cirrhosis Plan: Admited patient to the medical floor Ultrasound-guided paracentesis - Us paracentesis not done since as per report there was not enough fluid to safely drain. 09/11 appreciate GI recommendations. 09/12 SP EGD with the following findings: 1. There LA Class B esophagitis noted 2. There was erythematous gastritis in the gastric antrum 3. Portal hypertensive gastropathy was found in the gastric body and gastric fundus 4. Duodenal inflammation was found in the bulb and second portion of the duodenum 5. Retroflexed views revealed no abnormalities (2) Spleen hematoma Plan: Possibly due to coagulopathy. Gi following. INR down to 1.7 on 09/12, repeat levels. (3) Hyperbilirubinemia Plan: reviewed fractionated bilirubin. Suspect elevated bilirubin secondary to ascites and liver disease. 09/10 total bilirubin is slightly improved from 8.2-6.5. Fractionated bilirubin shows similar quantity for direct and indirect bilirubin. This is likely an intrinsic liver hyperbilirubinemia. (4) Splenomegaly Plan: Secondary to portal hypertension secondary to liver cirrhosis. (5) Ascites Plan: Ascites secondary to likely alcoholic liver cirrhosis. 09/10 resolving from ultrasound. The patient does not have enough fluid to be drained. (6) Hypokalemia Plan: Likely due to poor oral intake. Replace and monitor BMP as needed. The patient's potassium is normal. (7) Macrocytic anemia Plan: Likely secondary to liver disease, cirrhosis and hyperinsulinism. Continue to monitor CBC, no evidence of active bleeding. (8) HTN (hypertension) Plan: BP still severely elevated with systolic blood pressure into the 180s systolic. Continue the patient on nonselective beta-lynn. Propranolol 20 mg p.o. daily. Also start on lisinopril 20 minutes p.o. daily. Continue clonidine 0.1 mg every 6 hours as needed for systolic blood pressure more than 160. Continue lisinopril dose to 20 mg po daily/ Continue Propranolol 40 mg po BID and continue with amlodipine 5. (9) Fall Plan: Elbow x-ray did not show any acute bony abnormalities. LLE is edematous -venous Doppler negative for DVT. (10) Left shoulder pain ICD Code: M25.512 - Pain in left shoulder Plan: Status post mechanical fall. X-ray of elbow and shoulder negative for fracture. (11) Edema of left lower extremity ICD Code: R60.0 - Localized edema Plan: Left lower extremity has nonpitting edema more significant than the left lower extremity compared to the right. The patient sustained a trauma increase in the risk of development of DVT. DVT ruled out by us. (12) Hyperammonemia ICD Code: E72.20 - Disorder of urea cycle metabolism, unspecified Plan: Ammonia slightly elevated at 33. Hold lactulose due to diarrhea. Continue to monitor ammonia levels. (13) Coagulopathy ICD Code: D68.9 - Coagulation defect, unspecified Status: Acute Plan: Due to liver disease. Monitor PT/INR. SP vitamin K IV and on oral vitamin K. Continue to monitor PT/INR. DVT prophylaxis: SCDs, no chemo prophylaxis given possibility of the presence of esophageal varices and increased risk of bleeding. GI prophylaxis: PPI. Deconditioning - will need rehab Discharge Planning Due to patient's functional capacity will need rehab. Problem Qualifiers (1) Liver cirrhosis: (2) Spleen hematoma: Qualified Codes: S36.029A - Unspecified contusion of spleen, initial encounter (3) Ascites: Qualified Codes: R18.8 - Other ascites (4) HTN (hypertension): Qualified Codes: I10 - Essential (primary) hypertension (5) Fall: Qualified Codes: W19.XXXA - Unspecified fall, initial encounter (6) Left shoulder pain: Qualified Codes: M25.512 - Pain in left shoulder (7) Diarrhea: Qualified Codes: R19.7 - Diarrhea, unspecified Altagracia Thomas MD September 16, 2017 11:16
[2017-09-16] MEDS: ACETAMINOPHEN/HYDROcodone 325 MG/5 MG TAB PO PRN (17:27)
[2017-09-17] VITALS (9 sets, daily range): BP systolic 108–129; BP diastolic 50–65; PULSE 53–60; RESP 17–18; TEMP 97.1–98.2; O2SAT 98–100
[2017-09-17] MEDS: ACETAMINOPHEN/HYDROcodone 325 MG/5 MG TAB PO PRN ×3 (06:26→21:13)
[2017-09-17] MEDS: PROPRANOLOL HCL 20 MG TAB PO SCH ×3 (06:30→20:57)
[2017-09-17] MEDS: LACTULOSE SYRUP 20 GM/30 ML CUP PO SCH ×4 (10:00→20:57)
[2017-09-17] MEDS: PANTOPRAZOLE SOD 40 MG DELAYED RELEASE TAB PO SCH (10:00)
[2017-09-17] MEDS: FUROSEMIDE 40 MG TAB PO SCH (10:00)
[2017-09-17] MEDS: LISINOPRIL 20 MG TAB PO SCH (10:00)
[2017-09-17] MEDS: amLODIPine BESYLATE 5 MG TAB PO SCH (10:00)
[2017-09-17] MEDS: PHYTONADIONE 5 MG/SWFI 5 ML ORAL SYR PO SCH (10:00)
[2017-09-17] MEDS: SPIRONOLACTONE 25 MG TAB PO SCH (10:01)
[2017-09-17] MEDS: DOCUSATE SODIUM 50 MG/SENNA 8.6 MG TAB PO SCH ×2 (10:01→20:57)
[2017-09-17] MEDS: SODIUM CHLORIDE 0.9% FLUSH 10 ML FLUSH IV FLUSH SCH ×2 (10:01→20:58)
--- NOTE | 2017-09-17 10:09 | HHI.PR ---
Subjective Remarks Patient sitting up in bed eating breakfast. No complaints. No chest pain, sob. Patient is awaiting placement. Objective Vitals Vital Signs Date Time Temp Pulse Resp B/P (MAP) Pulse Ox O2 Delivery O2 Flow Rate FiO2 09/17/17 08:00 98.1 60 17 113/56 (75) 99 09/17/17 03:50 97.5 54 18 122/65 (84) 100 09/16/17 23:00 97.7 60 18 116/60 (78) 95 09/16/17 20:00 97.7 55 18 110/58 (75) 98 09/16/17 18:27 18 09/16/17 16:00 97.6 61 16 132/64 (86) 98 09/16/17 12:00 97.7 55 16 136/60 (85) 97 I/O 09/16/17 09/16/17 09/16/17 09/17/17 09/17/17 09/17/17 06:59 14:59 22:59 06:59 14:59 22:59 Intake Total 360 ml 480 ml Balance 360 ml 480 ml Intake Oral 360 ml 480 ml # Voids 4 3 # Bowel Movements 0 0 Result Diagram: 09/15/17 0408 09/15/17 0408 Objective Remarks EYES: Pupils equal and round. CARDIOVASCULAR: Regular rate and rhythm. RESPIRATORY: No accessory muscle use. Clear to auscultation. Breath sounds equal bilaterally. GASTROINTESTINAL: Abdomen soft, non-tender, nondistended. Hepatic and splenic margins not palpable. MUSCULOSKELETAL: Extremities without clubbing, cyanosis, or edema. No obvious deformities. NEUROLOGICAL: Awake and alert, oriented x 2 Normal speech. PSYCHIATRIC: Appropriate mood and affect Procedures None Urinary Catheter: No Vascular Central Line Catheter: No A/P Problem List: (1) Liver cirrhosis ICD Code: K74.60 - Unspecified cirrhosis of liver (2) Spleen hematoma ICD Code: S36.029A - Unspecified contusion of spleen, initial encounter Status: Acute Plan: Gi following. INR down to 1.7 on 09/12, repeat levels 09/18 (3) Hyperbilirubinemia ICD Code: E80.6 - Other disorders of bilirubin metabolism Status: Acute Plan: Suspect elevated bilirubin secondary to ascites and liver disease. 09/10 total bilirubin is slightly improved from 8.2-6.5. Fractionated bilirubin shows similar quantity for direct and indirect bilirubin. This is likely an intrinsic liver hyperbilirubinemia. Cont to monitor Labs in AM 09/18 (4) Splenomegaly ICD Code: R16.1 - Splenomegaly, not elsewhere classified Status: Chronic Plan: Secondary to portal hypertension secondary to liver cirrhosis. Cont to monitor (5) Ascites ICD Code: R18.8 - Other ascites Status: Chronic Plan: 09/10 resolving from ultrasound. The patient does not have enough fluid to be drained. Cont to monitor (6) Hypokalemia ICD Code: E87.6 - Hypokalemia Status: Resolved Plan: Resolved, stable at 3.7, cont to monitor (7) Macrocytic anemia ICD Code: D53.9 - Nutritional anemia, unspecified Status: Chronic Plan: Continue to monitor CBC, no evidence of active bleeding. (8) HTN (hypertension) ICD Code: I10 - Essential (primary) hypertension Status: Chronic Plan: Continue the patient on nonselective beta-lynn. Propranolol 20 mg p.o. daily.Cont lisinopril 20 mg p.o. daily. Continue clonidine 0.1 mg every 6 hours as needed for systolic blood pressure more than 160. Continue lisinopril dose to 20 mg po daily/ Continue Propranolol 40 mg po BID and continue with amlodipine 5 mg. Currently stable (9) Fall ICD Code: W19.XXXA - Unspecified fall, initial encounter Status: Acute Plan: LLE is edematous -venous Doppler negative for DVT. (10) Left shoulder pain ICD Code: M25.512 - Pain in left shoulder Plan: Status post mechanical fall. X-ray of elbow and shoulder negative for fracture. Pain management prn (11) Edema of left lower extremity ICD Code: R60.0 - Localized edema Plan: Left lower extremity has nonpitting edema more significant than the left lower extremity compared to the right. The patient sustained a trauma increase in the risk of development of DVT. DVT ruled out by us. Cont to monitor (12) Hyperammonemia ICD Code: E72.20 - Disorder of urea cycle metabolism, unspecified Plan: Ammonia slightly elevated at 33. Hold lactulose due to diarrhea. Continue to monitor ammonia levels. Ammonia in AM 09/18 (13) Coagulopathy ICD Code: D68.9 - Coagulation defect, unspecified Status: Acute Plan: Due to liver disease. Monitor PT/INR. SP vitamin K IV and on oral vitamin K. Continue to monitor PT/INR. Recheck in AM 09/18 (14) Diarrhea ICD Code: R19.7 - Diarrhea, unspecified Discharge Planning Awaiting placement, discharge once arrangements are made. Problem Qualifiers (1) Liver cirrhosis: (2) Spleen hematoma: Qualified Codes: S36.029A - Unspecified contusion of spleen, initial encounter (3) Ascites: Qualified Codes: R18.8 - Other ascites (4) HTN (hypertension): Qualified Codes: I10 - Essential (primary) hypertension (5) Fall: Qualified Codes: W19.XXXA - Unspecified fall, initial encounter (6) Left shoulder pain: Qualified Codes: M25.512 - Pain in left shoulder (7) Diarrhea: Qualified Codes: R19.7 - Diarrhea, unspecified Hodan Milner September 17, 2017 10:09
[2017-09-18] VITALS (9 sets, daily range): BP systolic 104–150; BP diastolic 59–71; PULSE 50–57; RESP 10–17; TEMP 97.4–98.2; O2SAT 99–100
[2017-09-18] MEDS: ACETAMINOPHEN/HYDROcodone 325 MG/5 MG TAB PO PRN ×2 (05:21→12:31)
[2017-09-18] MEDS: PROPRANOLOL HCL 20 MG TAB PO SCH (05:24)
[2017-09-18 06:55] LABS: AUTOMATED NEUTROPHIL # 5.9 TH/MM3 (1.8-7.7); BASOPHIL # 0.1 TH/MM3 (0-0.2); EOSINOPHIL # 0.2 TH/MM3 (0-0.4); EOSINOPHIL % 2.3 % (0.0-4.0); HEMATOCRIT 33.5 % (39.0-51.0); HEMOGLOBIN 11.4 GM/DL (13.0-17.0); LYMPH % 19.8 % (9.0-44.0); MEAN CELL VOLUME 107.4 FL (80.0-100.0); MEAN CORPUSCULAR HEMOGLOBIN 36.5 PG (27.0-34.0); MEAN PLATELET VOLUME 8.5 FL (7.0-11.0); MONO % 18.1 % (0.0-8.0); MONOCYTE # 1.8 TH/MM3 (0-0.9); NEUT % 58.8 % (16.0-70.0); PLATELET COUNT 86 TH/MM3 (150-450); RED BLOOD COUNT 3.12 MIL/MM3 (4.50-5.90); RED CELL DISTRIBUTION WIDTH 17.9 % (11.6-17.2)
[2017-09-18 07:07] LABS: INTERNATIONAL NORMALIZED RATIO 1.9 RATIO; PROTHROMBIN TIME - PATIENT 19.2 SEC (9.8-11.6)
[2017-09-18 07:18] LABS: BICARBONATE 22.8 MEQ/L (21.0-32.0); CALCIUM 8.1 MG/DL (8.5-10.1); CREATININE 1.58 MG/DL (0.60-1.30)
[2017-09-18] MEDS: SPIRONOLACTONE 25 MG TAB PO SCH (09:00)
[2017-09-18] MEDS: LISINOPRIL 20 MG TAB PO SCH (09:00)
[2017-09-18] MEDS: amLODIPine BESYLATE 5 MG TAB PO SCH (09:00)
[2017-09-18] MEDS: FUROSEMIDE 40 MG TAB PO SCH (09:00)
[2017-09-18] MEDS: LACTULOSE SYRUP 20 GM/30 ML CUP PO SCH ×4 (09:25→21:09)
[2017-09-18] MEDS: PHYTONADIONE 5 MG/SWFI 5 ML ORAL SYR PO SCH (09:25)
[2017-09-18] MEDS: DOCUSATE SODIUM 50 MG/SENNA 8.6 MG TAB PO SCH ×2 (09:26→21:09)
[2017-09-18] MEDS: PANTOPRAZOLE SOD 40 MG DELAYED RELEASE TAB PO SCH (09:26)
[2017-09-18] MEDS: SODIUM CHLORIDE 0.9% FLUSH 10 ML FLUSH IV FLUSH SCH ×2 (09:27→21:09)
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
--- NOTE | 2017-09-18 13:04 | RADRPT ---
EXAM DATE/TIME: 09/18/2017 12:44 [facility] COMPARISON: CT ABDOMEN & PELVIS W CONTRAST, September 09, 2017, 9:09. INDICATIONS : Left sided weakness. RADIATION DOSE: 56.35 CTDIvol (mGy) MEDICAL HISTORY : Hypertension. SURGICAL HISTORY : None. ENCOUNTER: Initial ACUITY: 1 day PAIN SCALE: 0/10 LOCATION: cranial TECHNIQUE: Multiple contiguous axial images were obtained of the head. Using automated exposure control and adj ustment of the mA and/or kV according to patient size, radiation dose was kept as low as reasonably a chievable to obtain optimal diagnostic quality images. DICOM format image data is available electro nically for review and comparison. FINDINGS: The examination demonstrates acute, subacute and chronic subdural hematoma on the right. Maximum thic kness is approximately 3.5 cm. This results in significant mass effect with compression of the sulci and gyri along the frontal and parietal cortex as well as 5 mm of right to left falcine shift. No int raventricular hemorrhage is seen. The appearance of the posterior fossa is unremarkable. The osseous structures of the skull are intact. CONCLUSION: 1. There is acute, subacute and chronic subdural hematoma on the right. There is a sizable amount hem orrhage and hygroma resulting in significant compression of the sulci and gyri of the right frontal a nd parietal cortex as well is 5 mm of [id number] falcine shift. Kam Lockett MD on September 18, 2017 at 12:57 Board Certified Radiologist. This report was verified electronically.
[2017-09-18 13:07] LABS: ALBUMIN 1.9 GM/DL (3.4-5.0); TOTAL BILIRUBIN ADULT 5.4 MG/DL (0.2-1.0); TOTAL PROTEIN 8.2 GM/DL (6.4-8.2)
[2017-09-18 13:08] LABS: DIRECT BILIRUBIN ADULT 2.5 MG/DL (0.0-0.2); INDIRECT BILIRUBIN 2.9 MG/DL (0.0-0.8)
[2017-09-18] MEDS ORDERED: PHYTONADIONE 10 MG/ML VIAL SQ ONE (13:30)
[2017-09-18] MEDS ORDERED: ACETAMINOPHEN 325 MG TAB PO PRN (13:45)
[2017-09-18] MEDS ORDERED: SODIUM CHLOR 0.9% 250 ML INJ 250 ML IV ONE (13:45)
[2017-09-18] MEDS ORDERED: FUROSEMIDE 20 MG/2 ML VIAL IV PUSH ONE (13:45)
[2017-09-18] MEDS ORDERED: niCARdipine INJ 25 MG in SODIUM CHLOR 0.9% 250 ML INJ 240 ML IV PRN (14:15)
--- NOTE | 2017-09-18 14:23 | PD.CONS ---
[facility] Service Critical Care Medicine Consult Requested By Dr. Hayes Reason for Consult Critical care management Primary Care Physician Unknown History of Present Illness This is a 62-year-old male. Date of admission 09/09/2017. Date of consultation 09/18/2017. Past medical history includes alcohol use/past abuse, liver cirrhosis with hepatitis C antibody positive, abdominal ascites, macrocytic anemia with chronic thrombocytopenia, chronic low back pain, essential hypertension, anxiety and tobaccoism. Patient was recently admitted to [facility] on 09/09 with history of falls and right flank/abdominal pain. Imaging at that time included CT abdomen/pelvis revealed portal gastropathy/ varices, abdominal ascites, small splenic hematoma and induration to the left side of the abdominal wall. Imaging of the elbow and ankle were negative for acute fracture. Patient was seen by GI for possible bleeding. EGD and's 09/12 revealed LA class B esophagitis, gastric erythema of the antrum. Duodenal bulb and second part of the duodenum. Portal hypertension with gastropathy. Today, patient according to staff was left-sided weakness with neglect. Stat CT of the brain revealed acute/subacute and chronic subdural hematoma right sided about 3.5 cm in thickness with compression of the sulci and gyri in the right posterior region with a right to left f subfalcine shift of approximately 4.7 mm. Neurosurgery is been consulted. We are asked to see for neurological management. Laboratories reveal a macrocytic anemia, thrombocytopenia, hypokalemia, acute kidney injury, low albumin and elevated AMA 1/320 which is nuclear pattern nonspecific in setting of hepatitis C antibody positive Neurologically, patient is adequate protecting his airway. He has significant left-sided deficits Review of Systems Constitutional: DENIES: Fatigue, Fever, Weight gain Endocrine: DENIES: Polydipsia Eyes: DENIES: Blurred vision, Eye inflammation, Eye pain Ears, nose, mouth, throat: DENIES: Tinnitus Respiratory: DENIES: Apneas Cardiovascular: COMPLAINS OF: Lower Extremity Edema, DENIES: Chest pain, Claudication Gastrointestinal: COMPLAINS OF: Abdominal pain, Diarrhea, DENIES: Black stools , Bloody stools, Nausea, Vomiting Genitourinary: DENIES: Urgency, Hematuria Musculoskeletal: COMPLAINS OF: Joint pain, Back pain, DENIES: Neck pain Integumentary: COMPLAINS OF: Abnormal pigmentation Hematologic/lymphatic: COMPLAINS OF: Bruising Immunologic/allergic: DENIES: Eczema Neurologic: COMPLAINS OF: Headache, Localized weakness, DENIES: Abnormal gait Psychiatric: COMPLAINS OF: Anxiety, Confusion, Depression Past Family Social History Allergies: Coded Allergies: No Known Allergies (Verified Adverse Reaction, Unknown, 09/09/17) Past Medical History History of EtOH abuse/use Tobaccoism Anxiety disorder NOS Essential hypertension History of gastric ulcer Chronic low back pain Past Surgical History None. History of right ankle fracture Reported Medications Pantoprazole 40 mg p.o. daily Active Ordered Medications Reviewed in EMR Family History No family history of diabetes mellitus, coronary artery disease, CVA or cancer Social History 5-6 cigarettes daily. "A few beers" daily. Prior heavy alcohol use. Illicit drug use Physical Exam Vital Signs Vital Signs Date Time Temp Pulse Resp B/P (MAP) Pulse Ox O2 Delivery O2 Flow Rate FiO2 09/18/17 08:00 97.4 55 17 104/59 (74) 100 09/18/17 08:00 53 09/18/17 04:16 57 09/17/17 23:58 54 09/17/17 23:40 98.2 59 17 108/50 (69) 98 09/17/17 19:57 59 09/17/17 19:30 97.1 60 17 129/61 (83) 98 09/17/17 16:00 97.8 58 17 127/60 (82) 99 09/17/17 16:00 57 Physical Exam GENERAL: 62-year-old male, resting in bed in no acute distress is heavily bearded SKIN: Warm and dry. HEAD: Atraumatic. Normocephalic. EYES: Pupils equal and round about 3 mm bilaterally and react. No scleral icterus. No injection or drainage. ENT: No nasal bleeding or discharge. Mucous membranes pink and moist. NECK: Trachea midline. No JVD. CARDIOVASCULAR: Bradycardic, RRR. S1, S2. No S4. Without murmur RESPIRATORY: No accessory muscle use. Clear to auscultation. Breath sounds equal bilaterally. GASTROINTESTINAL: Abdomen distended, nontender. Hypoactive bowel sounds appreciated. Splenomegaly noted. MUSCULOSKELETAL: Extremities with trace bilateral lower extremity edema. No obvious deformities. NEUROLOGICAL: Awake and alert. Strength 2 out of 5 left upper lower extremity. Normal sensation bilateral upper and lower extremities. Deep tendon reflexes appears equal and symmetric. Gait was not assessed Laboratory Laboratory Tests Test 09/18/17 06:42 09/18/17 12:30 White Blood Count 10.0 Red Blood Count 3.12 Hemoglobin 11.4 Hematocrit 33.5 Mean Corpuscular Volume 107.4 Mean Corpuscular Hemoglobin 36.5 Mean Corpuscular Hemoglobin Concent 34.0 Red Cell Distribution Width 17.9 Platelet Count 86 Mean Platelet Volume 8.5 Neutrophils (%) (Auto) 58.8 Lymphocytes (%) (Auto) 19.8 Monocytes (%) (Auto) 18.1 Eosinophils (%) (Auto) 2.3 Basophils (%) (Auto) 1.0 Neutrophils # (Auto) 5.9 Lymphocytes # (Auto) 2.0 Monocytes # (Auto) 1.8 Eosinophils # (Auto) 0.2 Basophils # (Auto) 0.1 CBC Comment AUTO DIFF Differential Comment AUTO DIFF CONFIRMED Prothrombin Time 19.2 Prothromb Time International Ratio 1.9 Blood Urea Nitrogen 20 Creatinine 1.58 Random Glucose 122 Calcium Level 8.1 Sodium Level 140 Potassium Level 3.4 Chloride Level 108 Carbon Dioxide Level 22.8 Anion Gap 9 Estimat Glomerular Filtration Rate 44 Ammonia 19 Total Bilirubin 5.4 Direct Bilirubin 2.5 Indirect Bilirubin 2.9 Aspartate Amino Transf (AST/SGOT) 57 Alanine Aminotransferase (ALT/SGPT) 34 Alkaline Phosphatase 150 Total Protein 8.2 Albumin 1.9 Result Diagram: 09/18/1742 09/18/1742 Imaging GENERAL: SKIN: Warm and dry. HEAD: Atraumatic. Normocephalic. EYES: Pupils equal and round. No scleral icterus. No injection or drainage. ENT: No nasal bleeding or discharge. Mucous membranes pink and moist. NECK: Trachea midline. No JVD. CARDIOVASCULAR: Regular rate and rhythm. RESPIRATORY: No accessory muscle use. Clear to auscultation. Breath sounds equal bilaterally. GASTROINTESTINAL: Abdomen soft, non-tender, nondistended. Hepatic and splenic margins not palpable. MUSCULOSKELETAL: Extremities without clubbing, cyanosis, or edema. No obvious deformities. NEUROLOGICAL: Awake and alert. No obvious cranial nerve deficits. Motor grossly within normal limits. Five out of 5 muscle strength in the arms and legs. Normal speech. PSYCHIATRIC: Appropriate mood and affect; insight and judgment normal. Septic Shock Reassessment Septic shock perfusion: reassessment completed Assessment and Plan Assessment and Plan Neuro/Psych: Acute/subacute/chronic right subdural hematoma -3.5 cm thickness with compression of the sulci/gyri with the right to left subfalcine shift 4.7 mm History of EtOH use Chronic low back pain Acute encephalopathy CT brain 09/18 revealed acute, subacute and chronic components to right subdural hematoma. 3.5 cm. Compression of the sulci and gyri. Right frontal right-to- left subfalcine shift approximately 5 cm. Consultation neurosurgery noted recheck head CT in a.. Patient was placed on levetiracetam 5 mg IV twice daily 7 days 2% saline started at 30 cc an hour. Blood pressure control keep systolic blood pressure less than 140 Multivitamin, thiamine and folate daily 3 days Seizure precautions Morphine sulfate 2-4 mg IV every 4 hours as needed pain Acetaminophen/Ofirmev1 g IV every 8 hours as needed for fever CV: Essential hypertension Currently on amlodipine 5 mg daily, KAMILAH inhibitor which will be held due to acute kidney injury, propranolol 40 mg twice daily, furosemide 40 mg daily and prolactin 25 mg daily. Goal keep systolic blood pressure less than 40 using nicardipine drip/labetalol as needed. Noted we do not have IV hydralazine at this facility Resp: Tobaccoism Nasal cannula to maintain saturations greater than equal to 92% Incentive spirometry while awake Tobacco cessation self-education booklet will be provided GI: Hepatitis C antibody positive LA class B esophagitis Portal hypertension Abdominal ascites Elevated transaminases Hypoalbuminemia CT abdomen/pelvis 09/09 revealed abdominal ascites, esophageal/gastric varices. Splenomegaly. Shrunken liver. Small splenic hematoma EGD 09/12 revealed LA class B esophagitis, gastric erythema of the antrum gastric and duodenal bulb/second portion, portal hypertension/gastropathy. Patient is on pantoprazole 40 mg IV daily/home medications pantoprazole Currently n.p.o. except for medication Docusate sodium/senna 1 tablet twice daily for bowel regimen Check hepatitis C viral load and genotype Recheck liver function tests in a.. 09/19 : Hoff catheter if indicated for accurate I's and O's in a critically ill patient Endo: Sliding scale insulin if indicated to maintain euglycemia Renal: Acute kidney injury Avoid nephrotoxic medications. KAMILAH inhibitor has been held Monitor urine output Accurate I's and O Heme: Macrocytic anemia Thrombocytopenia Coagulopathic state secondary to underlying liver disease Patient has been on Mephyton 5 mg p.o. daily since 09/11. Received 10 mg IM 1 today per hospitalist. Will receive 2 mg IV daily 2 days starting 09/19 Transfuse 1 pack platelets and 2 liquid plasma per hospitalist. Recheck coags in a.m. 09/19 with PTT and fibrinogen ID: Monitor for signs and symptomatology of infection. Rheum/MSK: Chronic low back pain ARTEMIO 1:320 nucleolar positive Nonspecific ARTEMIO findings. Not at 1: 640 Likely secondary to underlying liver disease/hepatitis dsdna will be checked PT evaluate and treat FEN: Hypokalemia Replace electrolytes as clinically indicated Access -Utilize peripheral IV. Central line if indicated Prophylax -GI -pantoprazole -DVT -SCD/holding pharmacological prophylaxis in light of acute subdural hematoma Level 3 consult Code Status Full code Discussed Condition With Patient. Care plan discussed and all questions answered. Coy Mahoney MD September 18, 2017 14:23
[2017-09-18] MEDS ORDERED: ACETAMINOPHEN 1000 MG/100 ML 100 ML IV PRN (14:30)
[2017-09-18] MEDS ORDERED: ONDANSETRON ODT 4 MG TAB PO PRN (14:45)
[2017-09-18] MEDS ORDERED: SODIUM CHLORIDE 0.9% FLUSH 10 ML FLUSH IV FLUSH PRN (14:45)
[2017-09-18] MEDS ORDERED: RESP: ALBUTEROL 2.5 MG/3 ML NEB (PRN) INH (14:45)
[2017-09-18] MEDS ORDERED: CHLORHEXIDINE GLUCONATE 2 % 1 PACK (2 CLOTHS) TOP PRN (14:45)
[2017-09-18] MEDS ORDERED: NURSING INFORMATION XX SCH (14:45)
[2017-09-18] MEDS ORDERED: MULTIVITAMIN INJ 10 ML, THIAMINE INJ 100 MG, FOLIC ACID INJ 1 MG in SODIUM CHLORID 0.9%... IV ONE (16:00)
[2017-09-18] MEDS ORDERED: PHYTONADIONE INJ 10 MG in SODIUM CHLORIDE 0.9% INJ 50 ML IV ONE (16:00)
[2017-09-18] MEDS ORDERED: MAGNESIUM SULFATE 1 GM PREMIX 100 ML IV ONE (16:00)
[2017-09-18] MEDS: PANTOPRAZOLE SODIUM 40 MG VIAL IV PUSH SCH (16:10)
[2017-09-18] MEDS: SODIUM CHLORIDE 23.4% INJ 188 MEQ in SODIUM CHLOR 0.9% 1000 ML INJ 1,000 ML IV SCH (16:11)
--- NOTE | 2017-09-18 17:22 | PD.CONS ---
History of Present Illness Service Neurosurgery Consult Requested By Hospitalist Reason for Consult Right subacute/chronic subdural hemorrhage Primary Care Physician Unknown Diagnoses: History of Present Illness This is a 62-year-old male admitted on 09/09 with history of falls and right flank/abdominal pain. Imaging at that time included CT abdomen/pelvis revealed portal gastropathy/varices, abdominal ascites, small splenic hematoma and induration to the left side of the abdominal wall. Patient was seen by GI for possible bleeding. EGD and's 09/12 revealed LA class B esophagitis, gastric erythema of the antrum. Duodenal bulb and second part of the duodenum. Portal hypertension with gastropathy. He was noted to have a left-sided weakness and a CT scan of the head obtained today reveals a large subacute and chronic right frontoparietal subdural hemorrhage measuring about 3 cm in thickness at about 6 mm right to left midline shift. He has a chronic coagulopathy with elevated PT/ INR due to his cirrhosis and liver failure along with thrombocytopenia. He also has anemia, hypokalemia, acute kidney injury, low albumin and elevated ARTEMIO. He is lethargic but easily arousable and oriented and follows simple command and protecting his airway well. Review of Systems Constitutional: COMPLAINS OF: Fatigue, Weight loss, DENIES: Diaphoretic episodes, Fever, Weight gain, Chills, Dizziness, Change in appetite, Night Sweats Endocrine: DENIES: Heat/cold intolerance, Polydipsia, Polyuria, Polyphagia Eyes: DENIES: Blurred vision, Diplopia, Eye inflammation, Eye pain, Vision loss , Photosensitivity, Double Vision Ears, nose, mouth, throat: DENIES: Tinnitus, Hearing loss, Vertigo, Nasal discharge, Oral lesions, Throat pain, Hoarseness, Ear Pain, Running Nose, Epistaxis, Sinus Pain, Toothache, Odynophagia Respiratory: COMPLAINS OF: Cough, DENIES: Apneas, Snoring, Wheezing, Hemoptysis , Sputum production, Shortness of breath Cardiovascular: COMPLAINS OF: Dyspnea on Exertion, Lower Extremity Edema, DENIES: Chest pain, Palpitations, Syncope, PND, Orthopnea, Claudication Gastrointestinal: COMPLAINS OF: Black stools, Bloody stools Genitourinary: DENIES: Sexual dysfunction, Urinary frequency, Urinary incontinence, Urgency, Hematuria, Dysuria, Nocturia, Penile Discharge, Testicular Pain, Testicular Swelling Musculoskeletal: COMPLAINS OF: Back pain, DENIES: Joint pain, Muscle aches, Stiffness, Joint Swelling, Neck pain Integumentary: COMPLAINS OF: Abnormal pigmentation, DENIES: Nail changes, Pruritus, Rash Hematologic/lymphatic: COMPLAINS OF: Bruising, DENIES: Lymphadenopathy Immunologic/allergic: DENIES: Eczema, Urticaria Neurologic: COMPLAINS OF: Abnormal gait, Localized weakness, Poor Balance, DENIES: Headache, Paresthesias, Seizures, Speech Problems, Tremor Psychiatric: DENIES: Anxiety, Confusion, Mood changes, Depression, Hallucinations, Agitation, Suicidal Ideation, Homicidal Ideation, Delusions Past Family Social History Allergies: Coded Allergies: No Known Allergies (Verified Adverse Reaction, Unknown, 09/09/17) Past Medical History alcohol abuse, liver cirrhosis with hepatitis C antibody positive, abdominal ascites, macrocytic anemia with chronic thrombocytopenia, chronic low back pain , essential hypertension, anxiety. Reported Medications Tylenol (Acetaminophen) 325 Mg Tab 325 Mg PO Q4H PRN Protonix (Pantoprazole Sodium) 40 Mg Tab 40 Mg PO DAILY Active Ordered Medications Current Medications Medications (Trade) Dose Ordered Sig/Tosin Route PRN Reason Start Time Stop Time Status Last Admin Dose Admin Sodium Chloride (NS Flush) 2 ml UNSCH PRN IV FLUSH FLUSH AFTER USING IV ACCESS 09/09/17 09:15 09/11/17 09:28 Sodium Chloride (NS Flush) 2 ml BID IV FLUSH 09/09/17 21:00 09/18/17 09:27 Ondansetron HCl (Zofran Inj) 4 mg Q6H PRN IVP NAUSEA OR VOMITING 09/09/17 09:15 Naloxone HCl (Narcan Inj) 0.4 mg UNSCH PRN IV PUSH SEE LABEL COMMENTS 09/09/17 09:15 Senna/Docusate Sodium (Toña-Colace) 1 tab BID PO 09/09/17 21:00 09/18/17 09:26 Magnesium Hydroxide (Milk Of Magnesia Liq) 30 ml Q12H PRN PO Mild constipation 09/09/17 09:15 Sennosides (Senokot) 17.2 mg Q12H PRN PO Moderate constipation 09/09/17 09:15 Bisacodyl (Dulcolax Supp) 10 mg DAILY PRN RECTAL SEVERE CONSITIPATION 09/09/17 09:15 Flumazenil (Romazicon Inj) 0.2 mg Q1M PRN IV PUSH SEE LABEL COMMENTS 09/09/17 20:00 Lorazepam (Ativan) 1 mg Q4H PRN PO CIWA 8 - 10 09/09/17 20:00 Lorazepam (Ativan Inj) 1 mg Q4H PRN IV PUSH CIWA 8 - 10 09/09/17 20:00 Lorazepam (Ativan) 2 mg Q2H PRN PO CIWA 11-14 09/09/17 20:00 Lorazepam (Ativan Inj) 2 mg Q2H PRN IV PUSH CIWA 11-14 09/09/17 20:00 Lorazepam (Ativan Inj) 2 mg Q1H PRN IV PUSH CIWA 15-20 09/09/17 20:00 Lorazepam (Ativan Inj) 2 mg Q15M PRN IV PUSH CIWA > 20 09/09/17 20:00 Lactulose (Lactulose Liq) 30 ml QID PO 09/09/17 21:00 09/18/17 12:30 Spironolactone (Aldactone) 25 mg DAILY PO 09/09/17 20:00 09/17/17 10:01 Clonidine (Catapres) 0.1 mg Q6H PRN PO SYS BP GREATER THAN 160 MMHG 09/10/17 12:45 09/15/17 19:47 Furosemide (Lasix) 40 mg DAILY PO 09/15/17 13:30 09/17/17 10:00 Amlodipine Besylate (Norvasc) 5 mg DAILY PO 09/15/17 13:30 09/17/17 10:00 Sodium Chloride 250 ml @ 15 mls/hr ONCE ONCE IV 09/18/17 13:45 09/19/17 06:24 Acetaminophen (Tylenol) 650 mg Q4H PRN PO SEE LABEL COMMENTS 09/18/17 13:45 Diphenhydramine HCl (Benadryl) 25 mg Q4H PRN PO SEE LABEL COMMENTS 09/18/17 13:45 Phytonadione 10 mg/Sodium Chloride 51 ml @ 102 mls/hr DAILY IV 09/19/17 09:00 09/21/17 08:59 Labetalol HCl (Trandate Inj) 10 mg Q1HR PRN IV PUSH SBP>140, DBP>90, HR>65 09/18/17 14:15 Nicardipine HCl 25 mg/Sodium Chloride 250 ml @ 50 mls/hr TITRATE PRN IV Blood pressure management 09/18/17 14:15 Sodium Chloride 188 meq/Sodium Chloride 1,047 ml @ 30 mls/hr Q24H IV 09/18/17 15:00 09/18/17 16:11 Levetriacetam 500 mg/Sodium Chloride 105 ml @ 420 mls/hr Q12HR IV 09/18/17 21:00 09/25/17 20:59 Multivitamins 10 ml/Thiamine HCl 100 mg/Folic Acid 1 mg/Sodium Chloride 511.2 ml @ 125 mls/hr ONCE ONCE IV 09/18/17 16:00 09/18/17 20:05 Multivitamins 10 ml/Thiamine HCl 100 mg/Folic Acid 1 mg/Sodium Chloride 511.2 ml @ 125 mls/hr DAILY IV 09/19/17 09:00 09/21/17 08:59 Pantoprazole Sodium (Protonix Inj) 40 mg DAILY IV PUSH 09/18/17 14:30 09/18/17 16:10 Acetaminophen 100 ml @ 400 mls/hr Q8HR PRN IV fever 09/18/17 14:30 Morphine Sulfate (Morphine Inj) 2 mg Q4H PRN IV PUSH Pain 1 through 7 09/18/17 14:30 Morphine Sulfate (Morphine Inj) 4 mg Q4HR PRN IV PUSH Pain 8-10 09/18/17 14:30 Artificial Tears (Tears Naturale Opth Soln) 1 drop TID EACH EYE 09/18/17 18:00 Ondansetron HCl (Zofran Odt) 4 mg Q6H PRN PO NAUSEA OR VOMITING 09/18/17 14:45 Albuterol/ Ipratropium (Duoneb Neb) 1 ampule Q6HR NEB INH 09/18/17 16:00 Albuterol Sulfate (Albuterol Neb) 2.5 mg Q2HR NEB PRN INH SOB/WHEEZING 09/18/17 14:45 Miscellaneous Information ([facility] [place] [facility]) 1 Q361D XX 09/18/17 14:45 09/18/17 14:45 Chlorhexidine Gluconate (Chlorhexidine 2% Cloth) 3 pack Taper DAILY@04 TOP 09/19/17 04:00 09/15/18 03:59 Chlorhexidine Gluconate (Chlorhexidine 2% Cloth) 3 pack UNSCH PRN TOP HYGIENIC CARE 09/18/17 14:45 Family History Unremarkable Social History He is and he has children reside out of state. Former heavy alcohol abuser although this point states he drinks a few beers a day and smokes a pack of cigarettes a day. Physical Exam Vital Signs Vital Signs Date Time Temp Pulse Resp B/P (MAP) Pulse Ox O2 Delivery O2 Flow Rate FiO2 09/18/17 08:00 97.4 55 17 104/59 (74) 100 09/18/17 08:00 53 09/18/17 04:16 57 09/17/17 23:58 54 09/17/17 23:40 98.2 59 17 108/50 (69) 98 09/17/17 19:57 59 09/17/17 19:30 97.1 60 17 129/61 (83) 98 Physical Exam GENERAL: This is a cachectic patient laying in bed in no apparent distress. SKIN: No rashes, ecchymoses or lesions. Cool and dry. HEAD: Atraumatic. Normocephalic. No temporal or scalp tenderness. EYES: Pupils equal round and reactive. Extraocular motions intact. Icteric sclera. ENT: Nose without bleeding, purulent drainage or septal hematoma. Throat without erythema, tonsillar hypertrophy or exudate. Uvula midline. Airway patent. NECK: Trachea midline. No JVD or lymphadenopathy. Supple, nontender, no meningeal signs. CARDIOVASCULAR: Regular rate and rhythm without murmurs, gallops, or rubs. RESPIRATORY: Clear to auscultation. Breath sounds equal bilaterally. No wheezes , rales, or rhonchi. GASTROINTESTINAL: Abdomen soft, non-tender, slightly distended. Positive hepatomegaly. No guarding. MUSCULOSKELETAL: Extremities without clubbing, cyanosis, with a mild edema. No joint tenderness, effusion, or edema noted. No calf tenderness. Negative Homans sign bilaterally. NEUROLOGICAL: Lethargic but easily arousable. He is oriented to name and location month and year. Left facial droop. Left hemiparesis with the left upper extremity 2/5 and left lower extremity 3/5. Moves right arm and leg well. Negative Babinski. Speech dysarthric. Laboratory Laboratory Tests Test 09/18/17 06:42 09/18/17 12:30 White Blood Count 10.0 Red Blood Count 3.12 Hemoglobin 11.4 Hematocrit 33.5 Mean Corpuscular Volume 107.4 Mean Corpuscular Hemoglobin 36.5 Mean Corpuscular Hemoglobin Concent 34.0 Red Cell Distribution Width 17.9 Platelet Count 86 Mean Platelet Volume 8.5 Neutrophils (%) (Auto) 58.8 Lymphocytes (%) (Auto) 19.8 Monocytes (%) (Auto) 18.1 Eosinophils (%) (Auto) 2.3 Basophils (%) (Auto) 1.0 Neutrophils # (Auto) 5.9 Lymphocytes # (Auto) 2.0 Monocytes # (Auto) 1.8 Eosinophils # (Auto) 0.2 Basophils # (Auto) 0.1 CBC Comment AUTO DIFF Differential Comment AUTO DIFF CONFIRMED Prothrombin Time 19.2 Prothromb Time International Ratio 1.9 Blood Urea Nitrogen 20 Creatinine 1.58 Random Glucose 122 Calcium Level 8.1 Sodium Level 140 Potassium Level 3.4 Chloride Level 108 Carbon Dioxide Level 22.8 Anion Gap 9 Estimat Glomerular Filtration Rate 44 Ammonia 19 Total Bilirubin 5.4 Direct Bilirubin 2.5 Indirect Bilirubin 2.9 Aspartate Amino Transf (AST/SGOT) 57 Alanine Aminotransferase (ALT/SGPT) 34 Alkaline Phosphatase 150 Total Protein 8.2 Albumin 1.9 Result Diagram: 09/18/17 0642 09/18/17 0642 Imaging Last Impressions Head CT 09/18/17 0000 Signed Impressions: Service Date/Time: Monday, September 18, 2017 12:44 - CONCLUSION: 1. There is acute, subacute and chronic subdural hematoma on the right. There is a sizable amount hemorrhage and hygroma resulting in significant compression of the sulci and gyri of the right frontal and parietal cortex as well is 5 mm of [id number] falcine shift. Kam Lockett MD Abdomen/Pelvis CT 09/09/17 0833 Signed Impressions: Service Date/Time: Saturday, September 09, 2017 09:09 - CONCLUSION: Extensive ascites with cirrhosis or varicosities. Prominent spleen with possible tiny subcapsular hematoma series 2 image 30. Minimal induration anterior abdominal wall left side. Gilbert Lockett MD FACR Chest X-Ray 09/09/17 0713 Signed Impressions: Service Date/Time: Saturday, September 09, 2017 07:34 - CONCLUSION: 1. No acute abnormality seen. 2. Increased density in the right paratracheal region. Jairo Kelly MD Shoulder X-Ray 09/09/17 Signed Impressions: Service Date/Time: Saturday, September 09, 2017 21:01 - CONCLUSION: 1. No acute bony abnormality. Vito Minor MD Lower Extremity Ultrasound 09/09/17 Signed Impressions: Service Date/Time: Saturday, September 09, 2017 21:41 - CONCLUSION: Normal examination. Henok Young MD Elbow X-Ray 09/09/17 Signed Impressions: Service Date/Time: Saturday, September 09, 2017 20:53 - CONCLUSION: 1. No acute bony abnormalities. Vito Minor MD Assessment and Plan Assessment and Plan 62-year-old gentleman with a large right frontoparietal subacute on chronic subdural hemorrhage with mass-effect and midline shift with associated left hemiparesis. Unfortunately he has advanced cirrhosis with coagulopathy and thrombocytopenia among other comorbidities. I recommended close monitoring in the surgical intensive care unit with neuro checks as well as correction of his coagulopathy and thrombocytopenia which is currently being undertaken by the head sawyer automatic. He has received vitamin K and is awaiting platelet and FFP transfusion. I discussed with the patient surgical intervention including drainage the right subdural hemorrhage and he relates to me that right now he is not sure he wants any surgical intervention but will reconsider. He understands the risk of progressive neurologic decline including herniation and brain . Conversation and discussion witnessed by the nursing staff at bedside. Also discussed with hospitalist. Al Carranza MD September 18, 2017 17:22
[2017-09-18] MEDS: RESP: ALBUTEROL 2.5 MG/IPRATROPIUM 0.5 MG NEB (SCH) INH ×2 (17:46→19:39)
[2017-09-18] MEDS: ARTIFICIAL TEARS OPTH SOLN 15 ML BTL EACH EYE SCH (17:58)
[2017-09-18] MEDS ORDERED: SODIUM CHLORIDE 0.9% FLUSH 10 ML FLUSH IV FLUSH SCH (21:00)
[2017-09-18] MEDS: levETIRAcetam INJ 500 MG in SODIUM CHLORIDE 0.9% INJ 100 ML IV SCH (21:09)
[2017-09-18 21:10] LABS: INTERNATIONAL NORMALIZED RATIO 1.9 RATIO; PROTHROMBIN TIME - PATIENT 18.8 SEC (9.8-11.6)
[2017-09-18] MEDS: MORPHINE SULFATE 4 MG/ML INJ IV PUSH PRN (21:14)
[2017-09-18] MEDS: diphenhydrAMINE HCL 25 MG CAP PO PRN (21:21)
[2017-09-19] VITALS (15 sets, daily range): BP systolic 119–169; BP diastolic 59–78; PULSE 58–71; RESP 11–24; TEMP 97.9–98.7; O2SAT 99–100
[2017-09-19] MEDS: RESP: ALBUTEROL 2.5 MG/IPRATROPIUM 0.5 MG NEB (SCH) INH ×4 (02:43→20:38)
[2017-09-19] MEDS: CHLORHEXIDINE GLUCONATE 2 % 1 PACK (2 CLOTHS) TOP SCH (04:00)
[2017-09-19 06:05] LABS: HEMATOCRIT 32.2 % (39.0-51.0); HEMOGLOBIN 11.2 GM/DL (13.0-17.0); MEAN CELL VOLUME 106.7 FL (80.0-100.0); MEAN CORPUSCULAR HEMOGLOBIN 37.3 PG (27.0-34.0); MEAN CORPUSCULAR HGB CONC 34.9 % (32.0-36.0); MEAN PLATELET VOLUME 8.6 FL (7.0-11.0); PLATELET COUNT 86 TH/MM3 (150-450); RED BLOOD COUNT 3.01 MIL/MM3 (4.50-5.90); RED CELL DISTRIBUTION WIDTH 17.8 % (11.6-17.2)
[2017-09-19 06:16] LABS: INTERNATIONAL NORMALIZED RATIO 1.6 RATIO; PROTHROMBIN TIME - PATIENT 16.4 SEC (9.8-11.6)
[2017-09-19 07:54] LABS: BANDS 2 % (0-6); BASOPHILS 1 % (0-2); LYMPHOCYTES 9 % (9-44); MONOCYTES 19 % (0-8); NEUTROPHIL # MANUAL DIFF 4.4 TH/MM3 (1.8-7.7); POLYS (SEG NEUTROPHILS) 61 % (16-70)
[2017-09-19 08:00] LABS: ALBUMIN 2.3 GM/DL (3.4-5.0); ALT (GPT) 35 U/L (12-78); AST (GOT) 55 U/L (15-37); BICARBONATE 22.5 MEQ/L (21.0-32.0); BLOOD UREA NITROGEN 20 MG/DL (7-18); CALCIUM 8.2 MG/DL (8.5-10.1); CHLORIDE 113 MEQ/L (98-107); CREATININE 1.38 MG/DL (0.60-1.30); GLOMERULAR FILTRATION RATE 52 ML/MIN (>89); GLUCOSE,RANDOM 90 MG/DL (74-106); MAGNESIUM 2.2 MG/DL (1.5-2.5); PHOSPHORUS 2.8 MG/DL (2.5-4.9); SODIUM (NA) 145 MEQ/L (136-145)
[2017-09-19 08:09] LABS: ALKALINE PHOSPHATASE 128 U/L (45-117); FREE T4 1.22 NG/DL (0.76-1.46); TOTAL BILIRUBIN ADULT 5.3 MG/DL (0.2-1.0); TOTAL PROTEIN 8.4 GM/DL (6.4-8.2)
[2017-09-19] MEDS ORDERED: PHYTONADIONE 10 MG/ML VIAL SQ SCH (09:00)
[2017-09-19] MEDS: ARTIFICIAL TEARS OPTH SOLN 15 ML BTL EACH EYE SCH ×3 (09:00→18:00)
--- NOTE | 2017-09-19 09:25 | HHI.NSPN ---
(Berhane Orellana) History Chief Complaint: Left hemiparesis, right SDH. (Berhane Orellana) Interval History This is a 62-year-old male admitted on 09/09 with history of falls and right flank/abdominal pain. Imaging at that time included CT abdomen/pelvis revealed portal gastropathy/varices, abdominal ascites, small splenic hematoma and induration to the left side of the abdominal wall. Patient was seen by GI for possible bleeding. EGD and's 09/12 revealed LA class B esophagitis, gastric erythema of the antrum. Duodenal bulb and second part of the duodenum. Portal hypertension with gastropathy. He was noted to have a left-sided weakness and a CT scan of the head obtained today reveals a large subacute and chronic right frontoparietal subdural hemorrhage measuring about 3 cm in thickness at about 6 mm right to left midline shift. He has a chronic coagulopathy with elevated PT/ INR due to his cirrhosis and liver failure along with thrombocytopenia. He also has anemia, hypokalemia, acute kidney injury, low albumin and elevated ARTEMIO. He is lethargic but easily arousable and oriented and follows simple command and protecting his airway well. 09/19/17: Pt awake, alert, flat affect. Denies headache. Complains of thirst. Left hemiparesis. Getting EEG this morning. (Berhane Orellana) Review of Systems General: Negative for: fever, chills, insomnia Respiratory: Negative for: shortness of breath, cough, sputum Cardiovascular: Negative for: chest pain Gastrointestinal: Negative for: nausea, vomitting, diarrhea, constipation ( Berhane Orellana) Exam Results Vital Signs Date Time Temp Pulse Resp B/P (MAP) Pulse Ox O2 Delivery O2 Flow Rate FiO2 09/19/17 08:00 97.9 59 11 144/62 (89) 100 09/18/17 19:40 Nasal Cannula 09/18/17 17:49 2.00 Intake and Output 09/19/17 09/19/17 09/20/17 08:00 16:00 00:00 Output Total 2000 ml Balance -2000 ml (Berhane Orellana) Physical Examination General: Pt awake and alert with flat affect. Eyes: Pupils equal. Sclera icteric bilaterally. Resp: CTA bilaterally Heart: NSR no murmurs Abd: Soft positive bs Skin: No cyanosis or erythema Muscle Moves right side well. Left hemiparesis. Left facial paresis. Left hemiparesis with the left upper extremity 2/5 and left lower extremity 3/5. Neuro: Pt awake and alert. Flat affect. Follows commands well. Answers simple questions. Pupils 3mm bilaterally, sluggish reaction bilaterally. (Berhane Orellana) Lab, Micro, Other Results Last Impressions Head CT 09/18/17 0000 Signed Impressions: Service Date/Time: Monday, September 18, 2017 12:44 - CONCLUSION: 1. There is acute, subacute and chronic subdural hematoma on the right. There is a sizable amount hemorrhage and hygroma resulting in significant compression of the sulci and gyri of the right frontal and parietal cortex as well is 5 mm of [id number] falcine shift. Kam Lockett MD Abdomen/Pelvis CT 09/09/17 0833 Signed Impressions: Service Date/Time: Saturday, September 09, 2017 09:09 - CONCLUSION: Extensive ascites with cirrhosis or varicosities. Prominent spleen with possible tiny subcapsular hematoma series 2 image 30. Minimal induration anterior abdominal wall left side. Gilbert Lockett MD FACR Chest X-Ray 09/09/17 0713 Signed Impressions: Service Date/Time: Saturday, September 09, 2017 07:34 - CONCLUSION: 1. No acute abnormality seen. 2. Increased density in the right paratracheal region. Jairo Kelly MD Shoulder X-Ray 09/09/17 0000 Signed Impressions: Service Date/Time: Saturday, September 09, 2017 21:01 - CONCLUSION: 1. No acute bony abnormality. Vito Minor MD Lower Extremity Ultrasound 09/09/17 0000 Signed Impressions: Service Date/Time: Saturday, September 09, 2017 21:41 - CONCLUSION: Normal examination. Henok Young MD Elbow X-Ray 09/09/17 0000 Signed Impressions: Service Date/Time: Saturday, September 09, 2017 20:53 - CONCLUSION: 1. No acute bony abnormalities. Vito Minor MD Laboratory Tests Test 09/18/17 12:30 09/18/17 17:00 09/18/17 20:20 09/18/17 20:22 Total Bilirubin 5.4 MG/DL Direct Bilirubin 2.5 MG/DL Indirect Bilirubin 2.9 MG/DL Aspartate Amino Transf (AST/SGOT) 57 U/L Alanine Aminotransferase (ALT/SGPT) 34 U/L Alkaline Phosphatase 150 U/L Total Protein 8.2 GM/DL Albumin 1.9 GM/DL Nasal Screen MRSA (PCR) MRSA NOT DETECTED Prothrombin Time 18.8 SEC Prothromb Time International Ratio 1.9 RATIO Activated Partial Thromboplast Time 38.3 SEC Fibrinogen 96 mg/dL Sodium Level 141 MEQ/L Test 09/19/17 05:39 White Blood Count 7.0 TH/MM3 Red Blood Count 3.01 MIL/MM3 Hemoglobin 11.2 GM/DL Hematocrit 32.2 % Mean Corpuscular Volume 106.7 FL Mean Corpuscular Hemoglobin 37.3 PG Mean Corpuscular Hemoglobin Concent 34.9 % Red Cell Distribution Width 17.8 % Platelet Count 86 TH/MM3 Mean Platelet Volume 8.6 FL CBC Comment AUTO DIFF Differential Total Cells Counted 100 Neutrophils % (Manual) 61 % Band Neutrophils % 2 % Lymphocytes % 9 % Monocytes % 19 % Eosinophils % 8 % Basophils % 1 % Neutrophils # (Manual) 4.4 TH/MM3 Differential Comment FINAL DIFF MANUAL Platelet Estimate LOW Platelet Morphology Comment NORMAL Prothrombin Time 16.4 SEC Prothromb Time International Ratio 1.6 RATIO Fibrinogen 134 mg/dL Blood Urea Nitrogen 20 MG/DL Creatinine 1.38 MG/DL Random Glucose 90 MG/DL Total Protein 8.4 GM/DL Albumin 2.3 GM/DL Calcium Level 8.2 MG/DL Phosphorus Level 2.8 MG/DL Magnesium Level 2.2 MG/DL Alkaline Phosphatase 128 U/L Aspartate Amino Transf (AST/SGOT) 55 U/L Alanine Aminotransferase (ALT/SGPT) 35 U/L Total Bilirubin 5.3 MG/DL Sodium Level 145 MEQ/L Potassium Level 3.5 MEQ/L Chloride Level 113 MEQ/L Carbon Dioxide Level 22.5 MEQ/L Anion Gap 10 MEQ/L Estimat Glomerular Filtration Rate 52 ML/MIN Ammonia 27 MCMOL/L Total Creatine Kinase 83 U/L Free Thyroxine 1.22 NG/DL Thyroid Stimulating Hormone 3rd Gen 2.080 uIU/ML (Berhane Orellana) Medical Decision Making Impression and Plan A: 62-year-old gentleman with a large right frontoparietal subacute on chronic subdural hemorrhage with mass-effect and midline shift with associated left hemiparesis. Unfortunately he has advanced cirrhosis with coagulopathy and thrombocytopenia among other comorbidities. P: Continue with close monitoring in the surgical intensive care unit with neuro checks. Correction of his coagulopathy and thrombocytopenia which is currently being undertaken by the telegraph installer. He has received vitamin K, platelet and FFP transfusion. Pt getting EEG this morning. Continue with DVT prophylaxis pt on SCDs. Continue with GI prophylaxis pt on Protonix. Continue with rehab efforts- PT/OT (Berhane Orellana) Attending Statement The exam, history, and the medical decision-making described in the above note were completed with the assistance of the mid-level provider. I reviewed and agree with the findings presented. I attest that I had a [id number] encounter with the patient on the same day, and personally performed and documented my assessment and findings in the medical record. No change in neurologic examination. Appears to be more receptive to intervention and will discuss with daughter. Discussed with telegraph installer Dr. Knight and he will will further optimize his coagulopathy and thrombocytopenia and we can subsequently contemplate right emelyn hole placement with a subdural drain possibly at the bedside in the intensive care unit. Continue with close observation. (Al Carranza MD) Berhane Orellana September 19, 2017 09:25 Al Carranza MD September 19, 2017 12:33
[2017-09-19] MEDS: SODIUM CHLORIDE 0.9% FLUSH 10 ML FLUSH IV FLUSH SCH ×2 (09:56→20:20)
[2017-09-19] MEDS: PHYTONADIONE INJ 10 MG in SODIUM CHLORIDE 0.9% INJ 50 ML IV SCH (09:57)
[2017-09-19] MEDS: levETIRAcetam INJ 500 MG in SODIUM CHLORIDE 0.9% INJ 100 ML IV SCH ×2 (10:02→20:20)
[2017-09-19] MEDS: PANTOPRAZOLE SODIUM 40 MG VIAL IV PUSH SCH (10:03)
[2017-09-19] MEDS: LACTULOSE SYRUP 20 GM/30 ML CUP PO SCH ×4 (10:09→20:19)
[2017-09-19] MEDS: DOCUSATE SODIUM 50 MG/SENNA 8.6 MG TAB PO SCH ×2 (10:09→20:20)
[2017-09-19] MEDS: SPIRONOLACTONE 25 MG TAB PO SCH (10:09)
[2017-09-19] MEDS: FUROSEMIDE 40 MG TAB PO SCH (10:09)
[2017-09-19] MEDS: amLODIPine BESYLATE 5 MG TAB PO SCH (10:10)
[2017-09-19] MEDS: MULTIVITAMIN INJ 10 ML, THIAMINE INJ 100 MG, FOLIC ACID INJ 1 MG in SODIUM CHLORID 0.9%... IV SCH (10:53)
[2017-09-19] MEDS ORDERED: SODIUM CHLOR 0.9% 250 ML INJ 250 ML IV ONE (13:30)
--- NOTE | 2017-09-19 13:41 | HHI.CCPN ---
Subjective Remarks/Hospital Course 09/18: This is a 62-year-old male. Date of admission 09/09/2017. Date of consultation 09/18/2017. Past medical history includes alcohol use/past abuse , liver cirrhosis with hepatitis C antibody positive, abdominal ascites, macrocytic anemia with chronic thrombocytopenia, chronic low back pain, essential hypertension, anxiety and tobaccoism. Patient was recently admitted to [facility] on 09/09 with history of falls and right flank/abdominal pain. Imaging at that time included CT abdomen/pelvis revealed portal gastropathy/ varices, abdominal ascites, small splenic hematoma and induration to the left side of the abdominal wall. Imaging of the elbow and ankle were negative for acute fracture. Patient was seen by GI for possible bleeding. EGD and's 09/12 revealed LA class B esophagitis, gastric erythema of the antrum. Duodenal bulb and second part of the duodenum. Portal hypertension with gastropathy. Today, patient according to staff was left-sided weakness with neglect. Stat CT of the brain revealed acute/subacute and chronic subdural hematoma right sided about 3.5 cm in thickness with compression of the sulci and gyri in the right posterior region with a right to left f subfalcine shift of approximately 4.7 mm. Neurosurgery is been consulted. We are asked to see for neurological management. Laboratories reveal a macrocytic anemia, thrombocytopenia, hypokalemia, acute kidney injury, low albumin and elevated AMA 1/320 which is nuclear pattern nonspecific in setting of hepatitis C antibody positive Neurologically, patient is adequate protecting his airway. He has significant left-sided deficits 09/19: Awake and alert. Minimal left upper extremity weakness denies any shortness of breath currently. Following commands. Receiving platelet transfusions. Objective Vital Signs Date Time Temp Pulse Resp B/P (MAP) Pulse Ox O2 Delivery O2 Flow Rate FiO2 09/19/17 12:00 98.0 64 14 132/62 (85) 100 09/18/17 19:40 Nasal Cannula 09/18/17 17:49 2.00 Intake and Output 09/19/17 09/19/17 09/20/17 08:00 16:00 00:00 Intake Total 960 ml Output Total 2000 ml Balance -2000 ml 960 ml Result Diagram: 09/19/17 0539 09/19/17 0539 Imaging GENERAL: SKIN: Warm and dry. HEAD: Atraumatic. Normocephalic. EYES: Pupils equal and round. No scleral icterus. No injection or drainage. ENT: No nasal bleeding or discharge. Mucous membranes pink and moist. NECK: Trachea midline. No JVD. CARDIOVASCULAR: Regular rate and rhythm. RESPIRATORY: No accessory muscle use. Clear to auscultation. Breath sounds equal bilaterally. GASTROINTESTINAL: Abdomen soft, non-tender, nondistended. Hepatic and splenic margins not palpable. MUSCULOSKELETAL: Extremities without clubbing, cyanosis, or edema. No obvious deformities. NEUROLOGICAL: Awake and alert. No obvious cranial nerve deficits. Motor grossly within normal limits. Five out of 5 muscle strength in the arms and legs. Normal speech. PSYCHIATRIC: Appropriate mood and affect; insight and judgment normal. Procedures None Objective Remarks GENERAL: 62-year-old male, resting in bed in no acute distress SKIN: Warm and dry. HEAD: Atraumatic. Normocephalic. EYES: Pupils equal and round about 3 mm bilaterally and react. No scleral icterus. No injection or drainage. ENT: No nasal bleeding or discharge. Mucous membranes pink and moist. NECK: Trachea midline. No JVD. CARDIOVASCULAR: Bradycardic, RRR. S1, S2. No S4. Without murmur RESPIRATORY: No accessory muscle use. Clear to auscultation. Breath sounds equal bilaterally. GASTROINTESTINAL: Abdomen distended, nontender. Hypoactive bowel sounds appreciated. Splenomegaly noted. MUSCULOSKELETAL: Extremities with trace bilateral lower extremity edema. No obvious deformities. NEUROLOGICAL: Awake and alert. Strength 4 out of 5 left upper lower extremity. Normal sensation bilateral upper and lower extremities. Deep tendon reflexes appears equal and symmetric. Gait was not assessed A/P Assessment and Plan Neuro/Psych: Acute/subacute/chronic right subdural hematoma -3.5 cm thickness with compression of the sulci/gyri with the right to left subfalcine shift 4.7 mm History of EtOH use Chronic low back pain Acute encephalopathy CT brain 09/18 revealed acute, subacute and chronic components to right subdural hematoma. 3.5 cm. Compression of the sulci and gyri. Right frontal right-to- left subfalcine shift approximately 5 cm. Consultation neurosurgery noted recheck head CT in a.m. 09/19. Possible intervention after correcting coags tomorrow per discussion with Dr. Carranza. Patient was placed on levetiracetam 5 mg IV twice daily 7 days 2% saline started at 30 cc an hour. Blood pressure control keep systolic blood pressure less than 140 Multivitamin, thiamine and folate daily 3 days Seizure precautions Morphine sulfate 2-4 mg IV every 4 hours as needed pain Acetaminophen/Ofirmev1 g IV every 8 hours as needed for fever CV: Essential hypertension Currently on amlodipine 5 mg daily, KAMILAH inhibitor which will be held due to acute kidney injury, propranolol 40 mg twice daily, furosemide 40 mg daily and prolactin 25 mg daily. Goal keep systolic blood pressure less than 40 using nicardipine drip/labetalol as needed. Noted we do not have IV hydralazine at this facility Resp: Tobaccoism Nasal cannula to maintain saturations greater than equal to 92% Incentive spirometry while awake Tobacco cessation self-education booklet will be provided GI: Hepatitis C antibody positive LA class B esophagitis Portal hypertension Abdominal ascites Elevated transaminases Hypoalbuminemia CT abdomen/pelvis 09/09 revealed abdominal ascites, esophageal/gastric varices. Splenomegaly. Shrunken liver. Small splenic hematoma EGD 09/12 revealed LA class B esophagitis, gastric erythema of the antrum gastric and duodenal bulb/second portion, portal hypertension/gastropathy. Patient is on pantoprazole 40 mg IV daily/home medications pantoprazole Currently n.p.o. except for medication Docusate sodium/senna 1 tablet twice daily for bowel regimen Check hepatitis C viral load and genotype Recheck liver function tests in a.m. 09/19 : Hoff catheter if indicated for accurate I's and O's in a critically ill patient Endo: Sliding scale insulin if indicated to maintain euglycemia Renal: Acute kidney injury Avoid nephrotoxic medications. KAMILAH inhibitor has been held Monitor urine output Accurate I's and O Heme: Macrocytic anemia Thrombocytopenia Coagulopathic state secondary to underlying liver disease Patient has been on Mephyton 5 mg p.o. daily since 09/11. Received 10 mg IM 1 today per hospitalist. Will receive 2 mg IV daily 2 days starting 09/19 Transfused 1 pack platelets and 2 liquid plasma per hospitalist on 09/18. Receiving 2 units for raised platelets on 09/19. Ordered 1 unit cryoprecipitate. Repeat coags tonight. ID: Monitor for signs and symptomatology of infection. Rheum/MSK: Chronic low back pain ARTEMIO 1:320 nucleolar positive Nonspecific ARTEMIO findings. Not at 1: 640 Likely secondary to underlying liver disease/hepatitis dsdna will be checked PT evaluate and treat FEN: Hypokalemia Replace electrolytes as clinically indicated Access -Utilize peripheral IV. Central line if indicated Prophylax -GI -pantoprazole -DVT -SCD/holding pharmacological prophylaxis in light of acute subdural hematoma Level 3 Nick Knight MD September 19, 2017 13:41
[2017-09-19] MEDS: SODIUM CHLORIDE 23.4% INJ 188 MEQ in SODIUM CHLOR 0.9% 1000 ML INJ 1,000 ML IV SCH (16:02)
[2017-09-19 19:36] LABS: HEMATOCRIT 28.2 % (39.0-51.0); HEMOGLOBIN 9.9 GM/DL (13.0-17.0)
--- NOTE | 2017-09-19 20:47 | MG ---
cc: Lucien Martinez MD, Mandeep MD [phone] INDICATION: Increased frequency artifact occurring almost all the channels with background slowing. Delta theta frequencies 10-30 microvolts. Limited driving with photic stimulation. Single lead EKG showing sinus rhythm. INTERPRETATION: Moderate encephalopathy, moderate artifact. Clinical correlation. MD GONZALEZ Siu/ , 08:34 PM , 08:47 PM
[2017-09-19 23:18] LABS: HEMATOCRIT 31.2 % (39.0-51.0); HEMOGLOBIN 10.9 GM/DL (13.0-17.0); MEAN CELL VOLUME 107.5 FL (80.0-100.0); MEAN CORPUSCULAR HEMOGLOBIN 37.4 PG (27.0-34.0); MEAN CORPUSCULAR HGB CONC 34.8 % (32.0-36.0); MEAN PLATELET VOLUME 8.2 FL (7.0-11.0); PLATELET COUNT 109 TH/MM3 (150-450); RED CELL DISTRIBUTION WIDTH 17.8 % (11.6-17.2); WHITE BLOOD COUNT 6.3 TH/MM3 (4.0-11.0)
[2017-09-19 23:33] LABS: INTERNATIONAL NORMALIZED RATIO 1.5 RATIO; PROTHROMBIN TIME - PATIENT 14.7 SEC (9.8-11.6)
[2017-09-20] VITALS (20 sets, daily range): BP systolic 140–167; BP diastolic 63–91; PULSE 57–66; RESP 10–24; TEMP 97.3–98.6; O2SAT 97–100
[2017-09-20] MEDS: CHLORHEXIDINE GLUCONATE 2 % 1 PACK (2 CLOTHS) TOP SCH (03:14)
[2017-09-20] MEDS: RESP: ALBUTEROL 2.5 MG/IPRATROPIUM 0.5 MG NEB (SCH) INH ×4 (03:35→21:45)
[2017-09-20 04:09] LABS: AUTOMATED NEUTROPHIL # 3.6 TH/MM3 (1.8-7.7); BASOPHIL % 0.7 % (0.0-2.0); EOSINOPHIL # 0.1 TH/MM3 (0-0.4); EOSINOPHIL % 1.9 % (0.0-4.0); HEMOGLOBIN 9.9 GM/DL (13.0-17.0); LYMPH % 22.8 % (9.0-44.0); LYMPHOCYTE # 1.4 TH/MM3 (1.0-4.8); MEAN CELL VOLUME 106.9 FL (80.0-100.0); MEAN CORPUSCULAR HEMOGLOBIN 37.8 PG (27.0-34.0); MEAN CORPUSCULAR HGB CONC 35.3 % (32.0-36.0); MEAN PLATELET VOLUME 8.5 FL (7.0-11.0); MONO % 17.3 % (0.0-8.0); MONOCYTE # 1.1 TH/MM3 (0-0.9); NEUT % 57.3 % (16.0-70.0); PLATELET COUNT 94 TH/MM3 (150-450); RED BLOOD COUNT 2.62 MIL/MM3 (4.50-5.90); RED CELL DISTRIBUTION WIDTH 17.1 % (11.6-17.2); WHITE BLOOD COUNT 6.2 TH/MM3 (4.0-11.0)
[2017-09-20 04:35] LABS: ALBUMIN 2.2 GM/DL (3.4-5.0); ALT (GPT) 30 U/L (12-78); AST (GOT) 51 U/L (15-37); BICARBONATE 21.8 MEQ/L (21.0-32.0); BLOOD UREA NITROGEN 15 MG/DL (7-18); CHLORIDE 111 MEQ/L (98-107); CREATININE 1.09 MG/DL (0.60-1.30); GLOMERULAR FILTRATION RATE 68 ML/MIN (>89); GLUCOSE,RANDOM 87 MG/DL (74-106); SODIUM (NA) 141 MEQ/L (136-145)
[2017-09-20 04:37] LABS: ALKALINE PHOSPHATASE 131 U/L (45-117); TOTAL BILIRUBIN ADULT 5.5 MG/DL (0.2-1.0)
[2017-09-20] MEDS ORDERED: SODIUM CHLOR 0.9% 250 ML INJ 250 ML IV ONE (07:15)
[2017-09-20] MEDS: DOCUSATE SODIUM 50 MG/SENNA 8.6 MG TAB PO SCH ×2 (09:00→20:11)
[2017-09-20] MEDS: ARTIFICIAL TEARS OPTH SOLN 15 ML BTL EACH EYE SCH ×2 (09:00→13:00)
[2017-09-20 09:12] LABS: OVALOCYTES 1+ (NORMAL)
[2017-09-20] MEDS: LACTULOSE SYRUP 20 GM/30 ML CUP PO SCH (09:15)
[2017-09-20] MEDS: levETIRAcetam INJ 500 MG in SODIUM CHLORIDE 0.9% INJ 100 ML IV SCH ×2 (09:15→20:10)
[2017-09-20] MEDS: PANTOPRAZOLE SODIUM 40 MG VIAL IV PUSH SCH (09:15)
[2017-09-20] MEDS: amLODIPine BESYLATE 5 MG TAB PO SCH (09:18)
[2017-09-20] MEDS: SPIRONOLACTONE 25 MG TAB PO SCH (09:18)
[2017-09-20] MEDS: FUROSEMIDE 40 MG TAB PO SCH (09:18)
[2017-09-20] MEDS: SODIUM CHLORIDE 0.9% FLUSH 10 ML FLUSH IV FLUSH SCH ×2 (09:19→20:11)
[2017-09-20] MEDS: PHYTONADIONE INJ 10 MG in SODIUM CHLORIDE 0.9% INJ 50 ML IV SCH (09:19)
--- NOTE | 2017-09-20 09:27 | HHI.NSPN ---
(Berhane Orellana) History Chief Complaint: Left hemiparesis, right SDH. (Berhane Orellana) Interval History This is a 62-year-old male admitted on 09/09 with history of falls and right flank/abdominal pain. Imaging at that time included CT abdomen/pelvis revealed portal gastropathy/varices, abdominal ascites, small splenic hematoma and induration to the left side of the abdominal wall. Patient was seen by GI for possible bleeding. EGD and's 09/12 revealed LA class B esophagitis, gastric erythema of the antrum. Duodenal bulb and second part of the duodenum. Portal hypertension with gastropathy. He was noted to have a left-sided weakness and a CT scan of the head obtained today reveals a large subacute and chronic right frontoparietal subdural hemorrhage measuring about 3 cm in thickness at about 6 mm right to left midline shift. He has a chronic coagulopathy with elevated PT/ INR due to his cirrhosis and liver failure along with thrombocytopenia. He also has anemia, hypokalemia, acute kidney injury, low albumin and elevated ARTEMIO. He is lethargic but easily arousable and oriented and follows simple command and protecting his airway well. 09/19/17: Pt awake, alert, flat affect. Denies headache. Complains of thirst. Left hemiparesis. Getting EEG this morning. 09/20/17: Pt awake and alert. Denies headache. Left hemiparesis with some improvement. No n/v. Pt states he would like to proceed with procedure. (Berhane Orellana) Review of Systems General: Negative for: fever, chills, insomnia Respiratory: Negative for: shortness of breath, cough, sputum Cardiovascular: Negative for: chest pain Gastrointestinal: Negative for: nausea, vomitting, diarrhea, constipation ( Berhane Orellana) Exam Results Vital Signs Date Time Temp Pulse Resp B/P (MAP) Pulse Ox O2 Delivery O2 Flow Rate FiO2 09/20/17 04:00 62 09/20/17 04:00 98.6 21 163/72 (102) 100 09/18/17 19:40 Nasal Cannula 09/18/17 17:49 2.00 Intake and Output 09/20/17 09/20/17 09/20/17 07:59 15:59 23:59 Intake Total 720 ml Output Total 1300 ml Balance -580 ml (Berhane Orellana) Physical Examination General: Pt awake and alert with flat affect. Eyes: Pupils equal. Sclera icteric bilaterally. Resp: CTA bilaterally Heart: NSR no murmurs Abd: Soft positive bs Skin: No cyanosis or erythema Muscle Moves right side well. Left hemiparesis. Left facial paresis. Left hemiparesis with the left upper extremity 3/5 and left lower extremity 4/5. Neuro: Pt awake and alert. Flat affect. Follows commands well. Answers simple questions. Pupils 3mm bilaterally, sluggish reaction bilaterally. (Berhane Orellana) Lab, Micro, Other Results Last Impressions Head CT 09/18/17 0000 Signed Impressions: Service Date/Time: Monday, September 18, 2017 12:44 - CONCLUSION: 1. There is acute, subacute and chronic subdural hematoma on the right. There is a sizable amount hemorrhage and hygroma resulting in significant compression of the sulci and gyri of the right frontal and parietal cortex as well is 5 mm of [id number] falcine shift. Kam Lockett MD Abdomen/Pelvis CT 09/09/17 0833 Signed Impressions: Service Date/Time: Saturday, September 09, 2017 09:09 - CONCLUSION: Extensive ascites with cirrhosis or varicosities. Prominent spleen with possible tiny subcapsular hematoma series 2 image 30. Minimal induration anterior abdominal wall left side. Gilbert Lockett MD FACR Chest X-Ray 09/09/17 0713 Signed Impressions: Service Date/Time: Saturday, September 09, 2017 07:34 - CONCLUSION: 1. No acute abnormality seen. 2. Increased density in the right paratracheal region. Jairo Kelly MD Shoulder X-Ray 09/09/17 0000 Signed Impressions: Service Date/Time: Saturday, September 09, 2017 21:01 - CONCLUSION: 1. No acute bony abnormality. Vito Minor MD Lower Extremity Ultrasound 09/09/17 0000 Signed Impressions: Service Date/Time: Saturday, September 09, 2017 21:41 - CONCLUSION: Normal examination. Henok Young MD Elbow X-Ray 09/09/17 0000 Signed Impressions: Service Date/Time: Saturday, September 09, 2017 20:53 - CONCLUSION: 1. No acute bony abnormalities. Vito Minor MD Laboratory Tests Test 09/19/17 19:00 09/19/17 22:29 09/20/17 03:18 Hemoglobin 9.9 GM/DL 10.9 GM/DL 9.9 GM/DL Hematocrit 28.2 % 31.2 % 28.0 % White Blood Count 6.3 TH/MM3 6.2 TH/MM3 Red Blood Count 2.90 MIL/MM3 2.62 MIL/MM3 Mean Corpuscular Volume 107.5 FL 106.9 FL Mean Corpuscular Hemoglobin 37.4 PG 37.8 PG Mean Corpuscular Hemoglobin Concent 34.8 % 35.3 % Red Cell Distribution Width 17.8 % 17.1 % Platelet Count 109 TH/MM3 94 TH/MM3 Mean Platelet Volume 8.2 FL 8.5 FL Prothrombin Time 14.7 SEC Prothromb Time International Ratio 1.5 RATIO Fibrinogen 196 mg/dL Neutrophils (%) (Auto) 57.3 % Lymphocytes (%) (Auto) 22.8 % Monocytes (%) (Auto) 17.3 % Eosinophils (%) (Auto) 1.9 % Basophils (%) (Auto) 0.7 % Neutrophils # (Auto) 3.6 TH/MM3 Lymphocytes # (Auto) 1.4 TH/MM3 Monocytes # (Auto) 1.1 TH/MM3 Eosinophils # (Auto) 0.1 TH/MM3 Basophils # (Auto) 0.0 TH/MM3 CBC Comment AUTO DIFF Differential Comment AUTO DIFF CONFIRMED Platelet Estimate LOW Platelet Morphology Comment NORMAL Ovalocytes 1+ Blood Urea Nitrogen 15 MG/DL Creatinine 1.09 MG/DL Random Glucose 87 MG/DL Total Protein 8.0 GM/DL Albumin 2.2 GM/DL Calcium Level 8.0 MG/DL Alkaline Phosphatase 131 U/L Aspartate Amino Transf (AST/SGOT) 51 U/L Alanine Aminotransferase (ALT/SGPT) 30 U/L Total Bilirubin 5.5 MG/DL Sodium Level 141 MEQ/L Potassium Level 3.3 MEQ/L Chloride Level 111 MEQ/L Carbon Dioxide Level 21.8 MEQ/L Anion Gap 8 MEQ/L Estimat Glomerular Filtration Rate 68 ML/MIN (Berhane Orellana) Medical Decision Making Impression and Plan A: 62-year-old gentleman with a large right frontoparietal subacute on chronic subdural hemorrhage with mass-effect and midline shift with associated left hemiparesis. Unfortunately he has advanced cirrhosis with coagulopathy and thrombocytopenia among other comorbidities. Pt electing to proceed with bedside right emelyn hole drainage of subdural hemorrhage evacuation. P: Dr. Carranza is going to do a right emelyn hole drainage for subdural hemorrhage evacuation at the bedside. Pt was awake and alert and requested the procedure with the RN at bedside. For added consent he also gave me permission to discuss with his daughter Angelic Hanley and I have discussed the procedure, risks, benefits, and the alternatives of no treatment. Risks include but are not limited to bleeding, infection, weakness, seizures, stroke, brain swelling, among others. Given his coagulopathy he is at risk of bleeding and he has received treatment for this but risk given his underlying condition remains. Both patient and his daughter have given informed consent. The phone consent from his daughter Angelic Hanley who resides in [place] was witnessed by Jeffrey COREA who signed the phone consent. The patient also gave informed consent and signed the consent and he appears to be capable of making informed consent. Continue with close monitoring in the surgical intensive care unit with neuro checks. Correction of his coagulopathy and thrombocytopenia which is currently being undertaken by the tool procurement coordinator. He has received vitamin K, platelet and FFP transfusion. He is getting additional treatment this morning. Continue with DVT prophylaxis pt on SCDs. Continue with GI prophylaxis pt on Protonix. Continue with rehab efforts- PT/OT (Berhane Orellana) Attending Statement The exam, history, and the medical decision-making described in the above note were completed with the assistance of the mid-level provider. I reviewed and agree with the findings presented. I attest that I had a [id number] encounter with the patient on the same day, and personally performed and documented my assessment and findings in the medical record. (Al Carranza MD) Berhane Orellana September 20, 2017 09:27 Al Carranza MD September 20, 2017 14:40
[2017-09-20] MEDS ORDERED: MIDAZOLAM HCL 5 MG/ML VIAL (1 ML) IV ONE (10:00)
--- NOTE | 2017-09-20 13:07 | HHI.CCPN ---
Subjective Remarks/Hospital Course 09/18: This is a 62-year-old male. Date of admission 09/09/2017. Date of consultation 09/18/2017. Past medical history includes alcohol use/past abuse , liver cirrhosis with hepatitis C antibody positive, abdominal ascites, macrocytic anemia with chronic thrombocytopenia, chronic low back pain, essential hypertension, anxiety and tobaccoism. Patient was recently admitted to [facility] on 09/09 with history of falls and right flank/abdominal pain. Imaging at that time included CT abdomen/pelvis revealed portal gastropathy/ varices, abdominal ascites, small splenic hematoma and induration to the left side of the abdominal wall. Imaging of the elbow and ankle were negative for acute fracture. Patient was seen by GI for possible bleeding. EGD and's 09/12 revealed LA class B esophagitis, gastric erythema of the antrum. Duodenal bulb and second part of the duodenum. Portal hypertension with gastropathy. Today, patient according to staff was left-sided weakness with neglect. Stat CT of the brain revealed acute/subacute and chronic subdural hematoma right sided about 3.5 cm in thickness with compression of the sulci and gyri in the right posterior region with a right to left f subfalcine shift of approximately 4.7 mm. Neurosurgery is been consulted. We are asked to see for neurological management. Laboratories reveal a macrocytic anemia, thrombocytopenia, hypokalemia, acute kidney injury, low albumin and elevated AMA 1/320 which is nuclear pattern nonspecific in setting of hepatitis C antibody positive Neurologically, patient is adequate protecting his airway. He has significant left-sided deficits 09/19: Awake and alert. Minimal left upper extremity weakness denies any shortness of breath currently. Following commands. Receiving platelet transfusions. 09/20: Awake and alert. Moving all 4 extremities. Minimal left upper extremity weakness. Not in any acute distress. Following commands. Objective Vital Signs Date Time Temp Pulse Resp B/P (MAP) Pulse Ox O2 Delivery O2 Flow Rate FiO2 09/20/17 11:45 98.0 65 24 143/77 100 09/18/17 19:40 Nasal Cannula 09/18/17 17:49 2.00 Intake and Output 09/20/17 09/20/17 09/21/17 08:00 16:00 00:00 Intake Total 720 ml 1800 ml Output Total 1300 ml Balance -580 ml 1800 ml Result Diagram: 09/20/17 0318 09/20/17 0318 Imaging GENERAL: SKIN: Warm and dry. HEAD: Atraumatic. Normocephalic. EYES: Pupils equal and round. No scleral icterus. No injection or drainage. ENT: No nasal bleeding or discharge. Mucous membranes pink and moist. NECK: Trachea midline. No JVD. CARDIOVASCULAR: Regular rate and rhythm. RESPIRATORY: No accessory muscle use. Clear to auscultation. Breath sounds equal bilaterally. GASTROINTESTINAL: Abdomen soft, non-tender, nondistended. Hepatic and splenic margins not palpable. MUSCULOSKELETAL: Extremities without clubbing, cyanosis, or edema. No obvious deformities. NEUROLOGICAL: Awake and alert. No obvious cranial nerve deficits. Motor grossly within normal limits. Five out of 5 muscle strength in the arms and legs. Normal speech. PSYCHIATRIC: Appropriate mood and affect; insight and judgment normal. Procedures None Objective Remarks GENERAL: 62-year-old male, resting in bed in no acute distress SKIN: Warm and dry. HEAD: Atraumatic. Normocephalic. EYES: Pupils equal and round about 3 mm bilaterally and react. No scleral icterus. No injection or drainage. ENT: No nasal bleeding or discharge. Mucous membranes pink and moist. NECK: Trachea midline. No JVD. CARDIOVASCULAR: Bradycardic, RRR. S1, S2. No S4. Without murmur RESPIRATORY: No accessory muscle use. Clear to auscultation. Breath sounds equal bilaterally. GASTROINTESTINAL: Abdomen distended, nontender. Hypoactive bowel sounds appreciated. Splenomegaly noted. MUSCULOSKELETAL: Extremities with trace bilateral lower extremity edema. No obvious deformities. NEUROLOGICAL: Awake and alert. Strength 4 out of 5 left upper lower extremity. Normal sensation bilateral upper and lower extremities. Deep tendon reflexes appears equal and symmetric. Gait was not assessed A/P Assessment and Plan Neuro/Psych: Acute/subacute/chronic right subdural hematoma -3.5 cm thickness with compression of the sulci/gyri with the right to left subfalcine shift 4.7 mm History of EtOH use Chronic low back pain Acute encephalopathy CT brain 09/18 revealed acute, subacute and chronic components to right subdural hematoma. 3.5 cm. Compression of the sulci and gyri. Right frontal right-to- left subfalcine shift approximately 5 cm. Consultation neurosurgery noted recheck head CT in a.m. 09/19. Neurosurgery planning bur hole at bedside today. Ordered additional 1 unit cryoprecipitate/ FFP 2 units and 1 unit pheresed platelets prior to procedure.. Patient was placed on levetiracetam 5 mg IV twice daily 7 days 2% saline started at 30 cc an hour. Blood pressure control keep systolic blood pressure less than 140 Multivitamin, thiamine and folate daily 3 days Seizure precautions Morphine sulfate 2-4 mg IV every 4 hours as needed pain Acetaminophen/Ofirmev1 g IV every 8 hours as needed for fever CV: Essential hypertension Currently on amlodipine 5 mg daily, KAMILAH inhibitor which will be held due to acute kidney injury, propranolol 40 mg twice daily, furosemide 40 mg daily and prolactin 25 mg daily. Goal keep systolic blood pressure less than 40 using nicardipine drip/labetalol as needed. Noted we do not have IV hydralazine at this facility Resp: Tobaccoism Nasal cannula to maintain saturations greater than equal to 92% Incentive spirometry while awake Tobacco cessation self-education booklet will be provided GI: Hepatitis C antibody positive LA class B esophagitis Portal hypertension Abdominal ascites Elevated transaminases Hypoalbuminemia CT abdomen/pelvis 09/09 revealed abdominal ascites, esophageal/gastric varices. Splenomegaly. Shrunken liver. Small splenic hematoma EGD 09/12 revealed LA class B esophagitis, gastric erythema of the antrum gastric and duodenal bulb/second portion, portal hypertension/gastropathy. Patient is on pantoprazole 40 mg IV daily/home medications pantoprazole Currently n.p.o. except for medication Docusate sodium/senna 1 tablet twice daily for bowel regimen Check hepatitis C viral load and genotype Recheck liver function tests in a.m. 09/19 : Hoff catheter if indicated for accurate I's and O's in a critically ill patient Endo: Sliding scale insulin if indicated to maintain euglycemia Renal: Acute kidney injury Avoid nephrotoxic medications. KAMILAH inhibitor has been held Monitor urine output Accurate I's and O Heme: Macrocytic anemia Thrombocytopenia Coagulopathic state secondary to underlying liver disease Patient has been on Mephyton 5 mg p.o. daily since 09/11. Received 10 mg IM 1 today per hospitalist. Will receive 2 mg IV daily 2 days starting 09/19 Transfused 1 pack platelets and 2 liquid plasma per hospitalist on 09/18. Receiving 2 units for raised platelets on 09/19. Ordered 1 unit cryoprecipitate. Repeat coags tonight. ID: Monitor for signs and symptomatology of infection. Rheum/MSK: Chronic low back pain ARTEMIO 1:320 nucleolar positive Nonspecific ARTEMIO findings. Not at 1: 640 Likely secondary to underlying liver disease/hepatitis dsdna will be checked PT evaluate and treat FEN: Hypokalemia Replace electrolytes as clinically indicated Access -Utilize peripheral IV. Central line if indicated Prophylax -GI -pantoprazole -DVT -SCD/holding pharmacological prophylaxis in light of acute subdural hematoma Level 2 Nick Knight MD September 20, 2017 13:07
[2017-09-20] MEDS: MORPHINE SULFATE 8 MG/ML INJ IV PUSH ONE (13:20)
[2017-09-20] MEDS: MULTIVITAMIN INJ 10 ML, THIAMINE INJ 100 MG, FOLIC ACID INJ 1 MG in SODIUM CHLORID 0.9%... IV SCH (14:25)
[2017-09-20] MEDS ORDERED: POTASSIUM PHOSPHATE MONOBASIC 500 MG TAB PO/TUBE PRN (14:30)
[2017-09-20] MEDS ORDERED: POTASSIUM CHLOR 20 MEQ PREMIX 100 ML IV PRN (14:30)
[2017-09-20] MEDS ORDERED: MAGNESIUM SULFATE INJ 4 GM in SODIUM CHLORIDE 0.9% INJ 92 ML IV PRN (14:30)
[2017-09-20] MEDS ORDERED: POTASSIUM CHLOR 40 MEQ PREMIX 100 ML IV PRN ×2 (14:30)
[2017-09-20] MEDS ORDERED: SODIUM PHOSPHATE INJ 30 MMOL in SODIUM CHLOR 0.9% 250 ML INJ 240 ML IV PRN (14:30)
[2017-09-20] MEDS ORDERED: POTASSIUM PHOSPHATE MONOBASIC 500 MG TAB PO PRN (14:30)
[2017-09-20] MEDS ORDERED: POTASSIUM CHLORIDE 25 MEQ EFFERVESCENT TAB PO PRN (14:30)
[2017-09-20] MEDS ORDERED: MAGNESIUM OXIDE 400 MG TAB PO PRN (14:30)
[2017-09-20] MEDS ORDERED: MAGNESIUM SULFATE INJ 2 GM in SODIUM CHLORIDE 0.9% INJ 96 ML IV PRN (14:30)
[2017-09-20] MEDS ORDERED: POTASSIUM PHOSPHATE INJ 30 MMOL in SODIUM CHLOR 0.9% 250 ML INJ 250 ML IV PRN (14:30)
--- NOTE | 2017-09-20 14:45 | PD.OP ---
Operative Report Date of Surgery: September 20, 2017 Preoperative Diagnosis: Large right frontal parietal subacute on chronic subdural hemorrhage with mass- effect and midline shift Postoperative Diagnosis: Same Procedure: Right frontal emelyn hole placement for subdural hemorrhage evacuation Anesthesia: Local with conscious sedation Surgeon: Al Carranza MD Forest Examiner(s): Libertad Pinzon Operation and Findings: Following administration of intravenous Versed and morphine with the hemodynamic and oxygen saturation monitoring in the surgical intensive care unit , the head turned to 45 to left side. The right frontoparietal area was then shaved and prepped with the resolution and ChloraPrep and sterilely draped. A small right frontal incision was made after infiltrating the scalp with 1% lidocaine with epinephrine solution. Incision carried down through the galea and a self-retaining retractor used for exposure. With a hand-held drill a bur hole was made and the underlying dura opened in a cruciate format. Subacute on chronic the brownish blackish liquefied blood was encountered and evacuated under moderate pressure about 45 cc of blood evacuated. A subdural drain was then placed in the subdural space which exited through the emelyn hole and tunneled under the scalp and secured the exit site with a 3-0 nylon sutures which were also used to approximate the frontal incision site. A sterile dressing was then applied. There were no complications. Estimated blood loss <5 cc from the procedure. Al Carranza MD September 20, 2017 14:45
[2017-09-20] MEDS: POTASSIUM CHLOR 20 MEQ PREMIX 100 ML IV PRN ×2 (15:39→17:55)
[2017-09-20] MEDS: LABETALOL HCL 100 MG/20 ML VIAL IV PUSH PRN ×3 (20:12→22:45)
[2017-09-20] MEDS: cloNIDine HCL 0.1 MG TAB PO PRN (22:58)
[2017-09-20] MEDS: SODIUM CHLORIDE 23.4% INJ 188 MEQ in SODIUM CHLOR 0.9% 1000 ML INJ 1,000 ML IV SCH (22:58)
[2017-09-20] MEDS: MORPHINE SULFATE 4 MG/ML INJ IV PUSH PRN (22:59)
[2017-09-21] VITALS (12 sets, daily range): BP systolic 121–152; BP diastolic 57–74; PULSE 60–75; RESP 12–20; TEMP 97.7–98.3; O2SAT 97–100
[2017-09-21] MEDS: LABETALOL HCL 100 MG/20 ML VIAL IV PUSH PRN (03:30)
[2017-09-21] MEDS: RESP: ALBUTEROL 2.5 MG/IPRATROPIUM 0.5 MG NEB (SCH) INH ×4 (03:44→20:54)
[2017-09-21] MEDS: CHLORHEXIDINE GLUCONATE 2 % 1 PACK (2 CLOTHS) TOP SCH (04:00)
[2017-09-21 06:15] LABS: BASOPHIL % 0.5 % (0.0-2.0); EOSINOPHIL # 0.1 TH/MM3 (0-0.4); EOSINOPHIL % 2.1 % (0.0-4.0); HEMATOCRIT 26.8 % (39.0-51.0); HEMOGLOBIN 9.2 GM/DL (13.0-17.0); LYMPHOCYTE # 1.1 TH/MM3 (1.0-4.8); MEAN CELL VOLUME 106.2 FL (80.0-100.0); MEAN CORPUSCULAR HEMOGLOBIN 36.5 PG (27.0-34.0); MEAN CORPUSCULAR HGB CONC 34.3 % (32.0-36.0); MEAN PLATELET VOLUME 8.1 FL (7.0-11.0); MONO % 16.9 % (0.0-8.0); MONOCYTE # 0.9 TH/MM3 (0-0.9); NEUT % 58.5 % (16.0-70.0); PLATELET COUNT 84 TH/MM3 (150-450); RED BLOOD COUNT 2.52 MIL/MM3 (4.50-5.90); RED CELL DISTRIBUTION WIDTH 16.9 % (11.6-17.2); WHITE BLOOD COUNT 5.1 TH/MM3 (4.0-11.0)
[2017-09-21 06:33] LABS: INTERNATIONAL NORMALIZED RATIO 1.6 RATIO; PROTHROMBIN TIME - PATIENT 15.7 SEC (9.8-11.6)
[2017-09-21 06:39] LABS: ALBUMIN 2.3 GM/DL (3.4-5.0); BICARBONATE 23.8 MEQ/L (21.0-32.0); BLOOD UREA NITROGEN 16 MG/DL (7-18); CALCIUM 7.9 MG/DL (8.5-10.1); CHLORIDE 109 MEQ/L (98-107); CREATININE 1.26 MG/DL (0.60-1.30); GLOMERULAR FILTRATION RATE 58 ML/MIN (>89); GLUCOSE,RANDOM 146 MG/DL (74-106); SODIUM (NA) 140 MEQ/L (136-145)
[2017-09-21 06:41] LABS: AST (GOT) 43 U/L (15-37)
[2017-09-21 06:48] LABS: ALKALINE PHOSPHATASE 103 U/L (45-117); ALT (GPT) 23 U/L (12-78); TOTAL BILIRUBIN ADULT 5.5 MG/DL (0.2-1.0); TOTAL PROTEIN 7.8 GM/DL (6.4-8.2)
[2017-09-21] MEDS: DOCUSATE SODIUM 50 MG/SENNA 8.6 MG TAB PO SCH ×2 (08:15→21:00)
[2017-09-21] MEDS: ARTIFICIAL TEARS OPTH SOLN 15 ML BTL EACH EYE SCH ×3 (08:25→18:00)
[2017-09-21] MEDS: levETIRAcetam INJ 500 MG in SODIUM CHLORIDE 0.9% INJ 100 ML IV SCH ×2 (08:26→21:00)
[2017-09-21] MEDS: SODIUM CHLORIDE 0.9% FLUSH 10 ML FLUSH IV FLUSH SCH ×2 (08:26→21:01)
[2017-09-21] MEDS: PANTOPRAZOLE SODIUM 40 MG VIAL IV PUSH SCH (08:27)
[2017-09-21] MEDS: amLODIPine BESYLATE 5 MG TAB PO SCH (08:27)
[2017-09-21] MEDS: FUROSEMIDE 40 MG TAB PO SCH (08:27)
[2017-09-21] MEDS: SPIRONOLACTONE 25 MG TAB PO SCH (08:27)
[2017-09-21] MEDS: LACTULOSE SYRUP 20 GM/30 ML CUP PO SCH (08:27)
[2017-09-21] MEDS: POTASSIUM CHLOR 20 MEQ PREMIX 100 ML IV PRN ×2 (08:27→12:21)
--- NOTE | 2017-09-21 09:35 | HHI.NSPN ---
History Chief Complaint: Left hemiparesis, right SDH. Interval History Patient reports no significant complaints Exam Results Vital Signs Date Time Temp Pulse Resp B/P (MAP) Pulse Ox O2 Delivery O2 Flow Rate FiO2 09/21/17 08:06 97 09/21/17 08:00 97.9 60 12 152/67 (95) 09/20/17 21:45 21 09/18/17 19:40 Nasal Cannula 09/18/17 17:49 2.00 Intake and Output 09/21/17 09/21/17 09/22/17 08:00 16:00 00:00 Intake Total 960 ml Output Total 1300 ml Balance -340 ml Physical Examination Patient is alert and awake. He follows commands Drain is in place and draining well. Left hemiparesis with left mild facial Lab, Micro, Other Results Laboratory Tests Test 09/21/17 05:50 White Blood Count 5.1 Red Blood Count 2.52 Hemoglobin 9.2 Hematocrit 26.8 Mean Corpuscular Volume 106.2 Mean Corpuscular Hemoglobin 36.5 Mean Corpuscular Hemoglobin Concent 34.3 Red Cell Distribution Width 16.9 Platelet Count 84 Mean Platelet Volume 8.1 Neutrophils (%) (Auto) 58.5 Lymphocytes (%) (Auto) 22.0 Monocytes (%) (Auto) 16.9 Eosinophils (%) (Auto) 2.1 Basophils (%) (Auto) 0.5 Neutrophils # (Auto) 3.0 Lymphocytes # (Auto) 1.1 Monocytes # (Auto) 0.9 Eosinophils # (Auto) 0.1 Basophils # (Auto) 0.0 CBC Comment AUTO DIFF Differential Comment AUTO DIFF CONFIRMED Prothrombin Time 15.7 Prothromb Time International Ratio 1.6 Blood Urea Nitrogen 16 Creatinine 1.26 Random Glucose 146 Total Protein 7.8 Albumin 2.3 Calcium Level 7.9 Alkaline Phosphatase 103 Aspartate Amino Transf (AST/SGOT) 43 Alanine Aminotransferase (ALT/SGPT) 23 Total Bilirubin 5.5 Sodium Level 140 Potassium Level 3.5 Chloride Level 109 Carbon Dioxide Level 23.8 Anion Gap 7 Estimat Glomerular Filtration Rate 58 Medical Decision Making Impression and Plan Patient is stable and unchanged Continued drainage Krishna White MD September 21, 2017 09:35
[2017-09-21] MEDS ORDERED: hydrALAZINE HCL 20 MG/ML VIAL IV PUSH PRN (12:45)
[2017-09-21] MEDS ORDERED: CLEVIDIPINE INJ 50 ML IV PRN (13:00)
--- NOTE | 2017-09-21 15:08 | HHI.CCPN ---
Subjective Remarks/Hospital Course 09/18: This is a 62-year-old male. Date of admission 09/09/2017. Date of consultation 09/18/2017. Past medical history includes alcohol use/past abuse , liver cirrhosis with hepatitis C antibody positive, abdominal ascites, macrocytic anemia with chronic thrombocytopenia, chronic low back pain, essential hypertension, anxiety and tobaccoism. Patient was recently admitted to [facility] on 09/09 with history of falls and right flank/abdominal pain. Imaging at that time included CT abdomen/pelvis revealed portal gastropathy/ varices, abdominal ascites, small splenic hematoma and induration to the left side of the abdominal wall. Imaging of the elbow and ankle were negative for acute fracture. Patient was seen by GI for possible bleeding. EGD and's 09/12 revealed LA class B esophagitis, gastric erythema of the antrum. Duodenal bulb and second part of the duodenum. Portal hypertension with gastropathy. Today, patient according to staff was left-sided weakness with neglect. Stat CT of the brain revealed acute/subacute and chronic subdural hematoma right sided about 3.5 cm in thickness with compression of the sulci and gyri in the right posterior region with a right to left f subfalcine shift of approximately 4.7 mm. Neurosurgery is been consulted. We are asked to see for neurological management. Laboratories reveal a macrocytic anemia, thrombocytopenia, hypokalemia, acute kidney injury, low albumin and elevated AMA 1/320 which is nuclear pattern nonspecific in setting of hepatitis C antibody positive Neurologically, patient is adequate protecting his airway. He has significant left-sided deficits 09/19: Awake and alert. Minimal left upper extremity weakness denies any shortness of breath currently. Following commands. Receiving platelet transfusions. 09/20: Awake and alert. Moving all 4 extremities. Minimal left upper extremity weakness. Not in any acute distress. Following commands. SUBJECTIVE: 09/21: Afebrile. 48 cc from right bur hole drain. Past 24 hours. Continues to have left upper extremity weakness. Tolerating diet. Positive BM 4 Objective Vital Signs Date Time Temp Pulse Resp B/P (MAP) Pulse Ox O2 Delivery O2 Flow Rate FiO2 09/21/17 12:00 60 09/21/17 12:00 97.7 14 151/68 (95) 99 09/20/17 21:45 21 09/18/17 19:40 Nasal Cannula 09/18/17 17:49 2.00 Intake and Output 09/21/17 09/21/17 09/22/17 08:00 16:00 00:00 Intake Total 960 ml 100 ml Output Total 1300 ml Balance -340 ml 100 ml Result Diagram: 09/21/17 0550 09/21/17 0550 Imaging GENERAL: 62-year-old male disheveled resting in bed in no acute distress SKIN: Warm and dry. HEAD: Status post right bur hole EYES: Pupils equal and round. No scleral icterus. No injection or drainage. ENT: No nasal bleeding or discharge. Mucous membranes pink and moist. NECK: Trachea midline. No JVD. CARDIOVASCULAR: Regular rate and rhythm. S1, S2 no S4. R without murmur RESPIRATORY: No accessory muscle use. Clear to auscultation. Breath sounds equal bilaterally. GASTROINTESTINAL: Abdomen soft, non-tender, nondistended. Hepatic and splenic margins not palpable. MUSCULOSKELETAL: Extremities without clubbing, cyanosis, or edema. No obvious deformities. NEUROLOGICAL: Strength 3 to 4+ out of 5 left upper extremity. 3-4 out of 5 left lower extremity. 5 out of 5 right upper lower extremity. Slight left facial droop. Normal sensation. Procedures None Objective Remarks GENERAL: 62-year-old male, resting in bed in no acute distress SKIN: Warm and dry. HEAD: Atraumatic. Normocephalic. EYES: Pupils equal and round about 3 mm bilaterally and react. No scleral icterus. No injection or drainage. ENT: No nasal bleeding or discharge. Mucous membranes pink and moist. NECK: Trachea midline. No JVD. CARDIOVASCULAR: Bradycardic, RRR. S1, S2. No S4. Without murmur RESPIRATORY: No accessory muscle use. Clear to auscultation. Breath sounds equal bilaterally. GASTROINTESTINAL: Abdomen distended, nontender. Hypoactive bowel sounds appreciated. Splenomegaly noted. MUSCULOSKELETAL: Extremities with trace bilateral lower extremity edema. No obvious deformities. NEUROLOGICAL: Awake and alert. Strength 4 out of 5 left upper lower extremity. Normal sensation bilateral upper and lower extremities. Deep tendon reflexes appears equal and symmetric. Gait was not assessed Urinary Catheter: No Assessment to: Continue Vascular Central Line Catheter: No Assessment to: Continue A/P Assessment and Plan Neuro/Psych: Acute/subacute/chronic right subdural hematoma -3.5 cm thickness with compression of the sulci/gyri with the right to left subfalcine shift 4.7 mm History of EtOH use Chronic low back pain Acute encephalopathy CT brain 09/18 revealed acute, subacute and chronic components to right subdural hematoma. 3.5 cm. Compression of the sulci and gyri. Right frontal right-to- left subfalcine shift approximately 5 cm. Consultation neurosurgery noted recheck head CT in a.m. 09/19. Status post right bur hole by Dr. Carranza. -48 cc past 24 hours. Patient was placed on levetiracetam 500 mg IV twice daily 7 days 2% saline started at 30 cc an hour. Blood pressure control keep systolic blood pressure less than 140 Multivitamin, thiamine and folate daily 3 days Seizure precautions Morphine sulfate 2-4 mg IV every 4 hours as needed pain Acetaminophen/Ofirmev1 g IV every 8 hours as needed for fever EEG with mild to moderate encephalopathic changes. No epileptic activity CV: Essential hypertension Currently on amlodipine 10 mg daily, KAMILAH inhibitor which will be held due to acute kidney injury, propranolol 40 mg twice daily, furosemide 40 mg daily and Spironolactone 25 mg daily. Goal keep systolic blood pressure less than 140 using nicardipine drip/ labetalol as needed. Resp: Tobaccoism Nasal cannula to maintain saturations greater than equal to 92% Incentive spirometry while awake Tobacco cessation self-education booklet will be provided GI: Hepatitis C antibody positive LA class B esophagitis Portal hypertension Abdominal ascites Elevated transaminases Hypoalbuminemia CT abdomen/pelvis 09/09 revealed abdominal ascites, esophageal/gastric varices. Splenomegaly. Shrunken liver. Small splenic hematoma EGD 09/12 revealed LA class B esophagitis, gastric erythema of the antrum gastric and duodenal bulb/second portion, portal hypertension/gastropathy. Patient is on pantoprazole 40 mg po daily/home medications pantoprazole Advance diet as tolerated Docusate sodium/senna 1 tablet twice daily for bowel regimen Check hepatitis C viral load and genotype Recheck liver function tests in a.m. 09/22 : Hoff catheter if indicated for accurate I's and O's in a critically ill patient Endo: Sliding scale insulin if indicated to maintain euglycemia Renal: Acute kidney injury Avoid nephrotoxic medications. KAMILAH inhibitor has been held Monitor urine output Accurate I's and O Heme: Macrocytic anemia Thrombocytopenia Coagulopathic state secondary to underlying liver disease Patient has been on Mephyton 5 mg p.o. daily since 09/11. Received 10 mg IM 1 per hospitalist. Will receive 10 mg IV daily 2 days starting 09/19. 5 mg p.o. 1 today. Received 4 pack platelets since admission along with 4 FFP, 2 liquid plasma, 2 cryoprecipitate ID: Monitor for signs and symptomatology of infection. Rheum/MSK: Chronic low back pain ARTEMIO 1:320 nucleolar positive with positive double-stranded DNA Nonspecific ARTEMIO findings. Not at 1: 640 Possibly also secondary to underlying liver disease/hepatitis dsdna was positive. Will need outpatient rheumatology workup PT evaluate and treat FEN: Hypokalemia Replace electrolytes as clinically indicated Access -Utilize peripheral IV. Central line if indicated Prophylax -GI -pantoprazole -DVT -SCD/holding pharmacological prophylaxis in light of acute subdural hematoma Level 2 Coy Mahoney MD September 21, 2017 15:08
[2017-09-21] MEDS: MORPHINE SULFATE 4 MG/ML INJ IV PUSH PRN ×2 (15:56→21:13)
[2017-09-21] MEDS: hydrALAZINE HCL 25 MG TAB PO SCH ×2 (16:00→21:00)
[2017-09-21] MEDS ORDERED: PHYTONADIONE 5 MG TAB PO ONE (16:00)
[2017-09-21] MEDS ORDERED: PHYTONADIONE 5 MG/SWFI 5 ML ORAL SYR PO SCH (16:00)
[2017-09-21] MEDS: SODIUM CHLORIDE 23.4% INJ 188 MEQ in SODIUM CHLOR 0.9% 1000 ML INJ 1,000 ML IV SCH (16:41)
[2017-09-22] VITALS (13 sets, daily range): BP systolic 120–155; BP diastolic 55–67; PULSE 62–76; RESP 12–17; TEMP 97.7–98.8; O2SAT 97–100
[2017-09-22] MEDS: CHLORHEXIDINE GLUCONATE 2 % 1 PACK (2 CLOTHS) TOP SCH (04:00)
[2017-09-22] MEDS: hydrALAZINE HCL 25 MG TAB PO SCH ×3 (04:04→21:41)
[2017-09-22] MEDS: MORPHINE SULFATE 4 MG/ML INJ IV PUSH PRN ×3 (04:04→21:46)
[2017-09-22] MEDS: RESP: ALBUTEROL 2.5 MG/IPRATROPIUM 0.5 MG NEB (SCH) INH ×2 (04:18→10:00)
[2017-09-22 07:25] LABS: BASOPHIL % 0.4 % (0.0-2.0); EOSINOPHIL # 0.2 TH/MM3 (0-0.4); EOSINOPHIL % 2.5 % (0.0-4.0); HEMATOCRIT 27.4 % (39.0-51.0); HEMOGLOBIN 9.7 GM/DL (13.0-17.0); LYMPH % 22.7 % (9.0-44.0); LYMPHOCYTE # 1.6 TH/MM3 (1.0-4.8); MEAN CELL VOLUME 106.4 FL (80.0-100.0); MEAN CORPUSCULAR HEMOGLOBIN 37.7 PG (27.0-34.0); MEAN CORPUSCULAR HGB CONC 35.4 % (32.0-36.0); MEAN PLATELET VOLUME 8.2 FL (7.0-11.0); MONO % 18.6 % (0.0-8.0); MONOCYTE # 1.3 TH/MM3 (0-0.9); NEUT % 55.8 % (16.0-70.0); PLATELET COUNT 81 TH/MM3 (150-450); RED BLOOD COUNT 2.57 MIL/MM3 (4.50-5.90); RED CELL DISTRIBUTION WIDTH 16.5 % (11.6-17.2); WHITE BLOOD COUNT 7.2 TH/MM3 (4.0-11.0)
[2017-09-22 07:38] LABS: ALBUMIN 2.2 GM/DL (3.4-5.0); ALKALINE PHOSPHATASE 102 U/L (45-117); ALT (GPT) 29 U/L (12-78); AST (GOT) 45 U/L (15-37); BICARBONATE 24.8 MEQ/L (21.0-32.0); BLOOD UREA NITROGEN 13 MG/DL (7-18); CHLORIDE 107 MEQ/L (98-107); CREATININE 1.15 MG/DL (0.60-1.30); GLOMERULAR FILTRATION RATE 64 ML/MIN (>89); GLUCOSE,RANDOM 104 MG/DL (74-106); MAGNESIUM 1.5 MG/DL (1.5-2.5); PHOSPHORUS 2.2 MG/DL (2.5-4.9); SODIUM (NA) 139 MEQ/L (136-145); TOTAL BILIRUBIN ADULT 6.5 MG/DL (0.2-1.0)
[2017-09-22 07:39] LABS: INTERNATIONAL NORMALIZED RATIO 1.7 RATIO; PROTHROMBIN TIME - PATIENT 17.4 SEC (9.8-11.6)
[2017-09-22 07:53] LABS: HCV RNA PCR IU/ML 1610000 IU/mL (Not Detected)
[2017-09-22] MEDS: ARTIFICIAL TEARS OPTH SOLN 15 ML BTL EACH EYE SCH ×3 (09:00→18:00)
[2017-09-22] MEDS: SODIUM CHLORIDE 0.9% FLUSH 10 ML FLUSH IV FLUSH SCH ×2 (09:00→20:31)
[2017-09-22] MEDS: LACTULOSE SYRUP 20 GM/30 ML CUP PO SCH (09:33)
[2017-09-22] MEDS: levETIRAcetam INJ 500 MG in SODIUM CHLORIDE 0.9% INJ 100 ML IV SCH ×2 (09:33→20:30)
[2017-09-22] MEDS: DOCUSATE SODIUM 50 MG/SENNA 8.6 MG TAB PO SCH ×2 (09:33→20:32)
[2017-09-22] MEDS: PANTOPRAZOLE SOD 40 MG DELAYED RELEASE TAB PO SCH (09:33)
[2017-09-22] MEDS: FUROSEMIDE 40 MG TAB PO SCH (09:33)
[2017-09-22] MEDS: SPIRONOLACTONE 25 MG TAB PO SCH (09:33)
--- NOTE | 2017-09-22 11:13 | HHI.NSPN ---
History Chief Complaint: Left hemiparesis, right SDH. Interval History Patient reports no significant complaints Exam Results Vital Signs Date Time Temp Pulse Resp B/P (MAP) Pulse Ox O2 Delivery O2 Flow Rate FiO2 09/22/17 08:00 97.8 62 12 155/67 (96) 99 09/20/17 21:45 21 09/18/17 19:40 Nasal Cannula 09/18/17 17:49 2.00 Intake and Output 09/22/17 09/22/17 09/23/17 08:00 16:00 00:00 Intake Total 720 ml Output Total 505 ml Balance 215 ml Physical Examination Patient is alert and awake. He follows commands Drain is in place and draining well. Left hemiparesis with left mild facial Medical Decision Making Impression and Plan Patient is stable and unchanged Continued drainage Krishna White MD September 22, 2017 11:12
[2017-09-22] MEDS: SODIUM CHLORIDE 23.4% INJ 188 MEQ in SODIUM CHLOR 0.9% 1000 ML INJ 1,000 ML IV SCH ×2 (15:00→20:00)
--- NOTE | 2017-09-22 16:23 | HHI.CCPN ---
Subjective Remarks/Hospital Course 09/18: This is a 62-year-old male. Date of admission 09/09/2017. Date of consultation 09/18/2017. Past medical history includes alcohol use/past abuse , liver cirrhosis with hepatitis C antibody positive, abdominal ascites, macrocytic anemia with chronic thrombocytopenia, chronic low back pain, essential hypertension, anxiety and tobaccoism. Patient was recently admitted to [facility] on 09/09 with history of falls and right flank/abdominal pain. Imaging at that time included CT abdomen/pelvis revealed portal gastropathy/ varices, abdominal ascites, small splenic hematoma and induration to the left side of the abdominal wall. Imaging of the elbow and ankle were negative for acute fracture. Patient was seen by GI for possible bleeding. EGD and's 09/12 revealed LA class B esophagitis, gastric erythema of the antrum. Duodenal bulb and second part of the duodenum. Portal hypertension with gastropathy. Today, patient according to staff was left-sided weakness with neglect. Stat CT of the brain revealed acute/subacute and chronic subdural hematoma right sided about 3.5 cm in thickness with compression of the sulci and gyri in the right posterior region with a right to left f subfalcine shift of approximately 4.7 mm. Neurosurgery is been consulted. We are asked to see for neurological management. Laboratories reveal a macrocytic anemia, thrombocytopenia, hypokalemia, acute kidney injury, low albumin and elevated AMA 1/320 which is nuclear pattern nonspecific in setting of hepatitis C antibody positive Neurologically, patient is adequate protecting his airway. He has significant left-sided deficits 09/19: Awake and alert. Minimal left upper extremity weakness denies any shortness of breath currently. Following commands. Receiving platelet transfusions. 09/20: Awake and alert. Moving all 4 extremities. Minimal left upper extremity weakness. Not in any acute distress. Following commands. 09/21: Afebrile. 48 cc from right bur hole drain. Past 24 hours. Continues to have left upper extremity weakness. Tolerating diet. Positive BM 4 SUBJECTIVE: 09/22: Resting in bed in no acute distress. Requesting removal of catheter. Blood pressure better controlled. Replacing magnesium potassium today. Objective Vital Signs Date Time Temp Pulse Resp B/P (MAP) Pulse Ox O2 Delivery O2 Flow Rate FiO2 09/22/17 12:33 97 09/22/17 12:00 97.7 68 12 134/63 (86) 09/20/17 21:45 21 09/18/17 19:40 Nasal Cannula 09/18/17 17:49 2.00 Intake and Output 09/22/17 09/22/17 09/23/17 08:00 16:00 00:00 Intake Total 720 ml Output Total 505 ml Balance 215 ml Result Diagram: 09/22/17 0620 09/22/17 0620 Imaging GENERAL: 62-year-old male disheveled resting in bed in no acute distress SKIN: Warm and dry. HEAD: Status post right bur hole with drain in place EYES: Pupils equal and round. No scleral icterus. No injection or drainage. ENT: No nasal bleeding or discharge. Mucous membranes pink and moist. NECK: Trachea midline. No JVD. CARDIOVASCULAR: Regular rate and rhythm. S1, S2 no S4. R without murmur RESPIRATORY: No accessory muscle use. Clear to auscultation. Breath sounds equal bilaterally. GASTROINTESTINAL: Abdomen soft, non-tender, nondistended. Hepatic and splenic margins not palpable. MUSCULOSKELETAL: Extremities without clubbing, cyanosis, or edema. No obvious deformities. NEUROLOGICAL: Strength 3 to 4+ out of 5 left upper extremity. 3-4 out of 5 left lower extremity. 5 out of 5 right upper lower extremity. Slight left facial droop. Normal sensation. Procedures None Objective Remarks GENERAL: 62-year-old male, resting in bed in no acute distress SKIN: Warm and dry. HEAD: Atraumatic. Normocephalic. EYES: Pupils equal and round about 3 mm bilaterally and react. No scleral icterus. No injection or drainage. ENT: No nasal bleeding or discharge. Mucous membranes pink and moist. NECK: Trachea midline. No JVD. CARDIOVASCULAR: Bradycardic, RRR. S1, S2. No S4. Without murmur RESPIRATORY: No accessory muscle use. Clear to auscultation. Breath sounds equal bilaterally. GASTROINTESTINAL: Abdomen distended, nontender. Hypoactive bowel sounds appreciated. Splenomegaly noted. MUSCULOSKELETAL: Extremities with trace bilateral lower extremity edema. No obvious deformities. NEUROLOGICAL: Awake and alert. Strength 4 out of 5 left upper lower extremity. Normal sensation bilateral upper and lower extremities. Deep tendon reflexes appears equal and symmetric. Gait was not assessed Urinary Catheter: No Assessment to: Continue Vascular Central Line Catheter: No Assessment to: Continue A/P Assessment and Plan Neuro/Psych: Acute/subacute/chronic right subdural hematoma -3.5 cm thickness with compression of the sulci/gyri with the right to left subfalcine shift 4.7 mm History of EtOH use Chronic low back pain Acute encephalopathy CT brain 09/18 revealed acute, subacute and chronic components to right subdural hematoma. 3.5 cm. Compression of the sulci and gyri. Right frontal right-to- left subfalcine shift approximately 5 cm. Consultation neurosurgery noted recheck head CT in a.m. 09/19. Status post right bur hole by Dr. Carranza. -26 cc past 24 hours. Patient was placed on levetiracetam 500 mg IV twice daily 7 days 2% saline started at 30 cc an hour. Blood pressure control keep systolic blood pressure less than 140 Multivitamin, thiamine and folate daily 3 days Seizure precautions Morphine sulfate 2-4 mg IV every 4 hours as needed pain Acetaminophen/Ofirmev1 g IV every 8 hours as needed for fever EEG with mild to moderate encephalopathic changes. No epileptic activity CV: Essential hypertension Currently on amlodipine 10 mg daily, KAMILAH inhibitor which will be held due to acute kidney injury, propranolol 40 mg twice daily, furosemide 40 mg daily and Spironolactone 25 mg daily. Goal keep systolic blood pressure less than 140 using nicardipine drip/ labetalol as needed. Resp: Tobaccoism Nasal cannula to maintain saturations greater than equal to 92% Incentive spirometry while awake Tobacco cessation self-education booklet will be provided GI: Hepatitis C antibody positive LA class B esophagitis Portal hypertension Abdominal ascites Elevated transaminases Hypoalbuminemia CT abdomen/pelvis 09/09 revealed abdominal ascites, esophageal/gastric varices. Splenomegaly. Shrunken liver. Small splenic hematoma EGD 09/12 revealed LA class B esophagitis, gastric erythema of the antrum gastric and duodenal bulb/second portion, portal hypertension/gastropathy. Patient is on pantoprazole 40 mg po daily/home medications pantoprazole Advance diet as tolerated Docusate sodium/senna 1 tablet twice daily for bowel regimen Check hepatitis C viral load and genotype Recheck liver function tests as clinically indicated. Labile but stable : Hoff catheter if indicated for accurate I's and O's in a critically ill patient Endo: Sliding scale insulin if indicated to maintain euglycemia Renal: Acute kidney injury Avoid nephrotoxic medications. KAMILAH inhibitor has been held Monitor urine output Accurate I's and O Heme: Macrocytic anemia Thrombocytopenia Coagulopathic state secondary to underlying liver disease Patient has been on Mephyton 5 mg p.o. daily since 09/11. Received 10 mg IM 1 per hospitalist. Will receive 10 mg IV daily 2 days starting 09/19. 5 mg p.o. 1 today. Received 4 pack platelets since admission along with 4 FFP, 2 liquid plasma, 2 cryoprecipitate ID: Monitor for signs and symptomatology of infection. Rheum/MSK: Chronic low back pain ARTEMIO 1:320 nucleolar positive with positive double-stranded DNA Nonspecific ARTEMIO findings. Not at 1: 640 Possibly also secondary to underlying liver disease/hepatitis dsdna was positive. Will need outpatient rheumatology workup PT evaluate and treat FEN: Hypomagnesia Replace electrolytes as clinically indicated 3 g mag sulfate IV 1 now. 30 mEq KCl p.o. 1. Recheck in a.m. Access -Utilize peripheral IV. Central line if indicated Prophylax -GI -pantoprazole -DVT -SCD/holding pharmacological prophylaxis in light of acute subdural hematoma Level 2 Coy Mahoney MD September 22, 2017 16:23
[2017-09-22] MEDS ORDERED: MAGNESIUM SULFATE 1 GM PREMIX 100 ML IV ONE (16:30)
[2017-09-22] MEDS ORDERED: POTASSIUM CHLORIDE 10 MEQ CONTROLLED RELEASE TAB PO ONE (16:30)
[2017-09-22] MEDS: MAGNESIUM SULFATE 1 GM PREMIX 100 ML IV SCH ×4 (16:47→20:31)
[2017-09-23] VITALS (13 sets, daily range): BP systolic 113–140; BP diastolic 56–65; PULSE 66–102; RESP 10–16; TEMP 97.8–98.2; O2SAT 98–100
[2017-09-23] MEDS: MORPHINE SULFATE 4 MG/ML INJ IV PUSH PRN ×2 (02:55→09:37)
[2017-09-23] MEDS: CHLORHEXIDINE GLUCONATE 2 % 1 PACK (2 CLOTHS) TOP SCH (04:00)
[2017-09-23 05:06] LABS: HEMATOCRIT 28.4 % (39.0-51.0); MEAN CELL VOLUME 104.7 FL (80.0-100.0); MEAN CORPUSCULAR HEMOGLOBIN 36.8 PG (27.0-34.0); MEAN CORPUSCULAR HGB CONC 35.1 % (32.0-36.0); MEAN PLATELET VOLUME 8.7 FL (7.0-11.0); PLATELET COUNT 85 TH/MM3 (150-450); RED BLOOD COUNT 2.71 MIL/MM3 (4.50-5.90); RED CELL DISTRIBUTION WIDTH 16.5 % (11.6-17.2); WHITE BLOOD COUNT 7.9 TH/MM3 (4.0-11.0)
[2017-09-23 05:32] LABS: BICARBONATE 21.9 MEQ/L (21.0-32.0); CALCIUM 8.5 MG/DL (8.5-10.1); CREATININE 1.07 MG/DL (0.60-1.30); MAGNESIUM 2.2 MG/DL (1.5-2.5); PHOSPHORUS 3.8 MG/DL (2.5-4.9)
[2017-09-23] MEDS: hydrALAZINE HCL 25 MG TAB PO SCH ×3 (06:03→22:43)
[2017-09-23] MEDS: SODIUM CHLORIDE 0.9% FLUSH 10 ML FLUSH IV FLUSH SCH ×2 (09:00→20:06)
[2017-09-23] MEDS: FUROSEMIDE 40 MG TAB PO SCH (09:00)
[2017-09-23] MEDS: ARTIFICIAL TEARS OPTH SOLN 15 ML BTL EACH EYE SCH ×3 (09:00→18:00)
--- NOTE | 2017-09-23 09:08 | HHI.CCPN ---
Subjective Remarks/Hospital Course 09/18: This is a 62-year-old male. Date of admission 09/09/2017. Date of consultation 09/18/2017. Past medical history includes alcohol use/past abuse , liver cirrhosis with hepatitis C antibody positive, abdominal ascites, macrocytic anemia with chronic thrombocytopenia, chronic low back pain, essential hypertension, anxiety and tobaccoism. Patient was recently admitted to [facility] on 09/09 with history of falls and right flank/abdominal pain. Imaging at that time included CT abdomen/pelvis revealed portal gastropathy/ varices, abdominal ascites, small splenic hematoma and induration to the left side of the abdominal wall. Imaging of the elbow and ankle were negative for acute fracture. Patient was seen by GI for possible bleeding. EGD and's 09/12 revealed LA class B esophagitis, gastric erythema of the antrum. Duodenal bulb and second part of the duodenum. Portal hypertension with gastropathy. Today, patient according to staff was left-sided weakness with neglect. Stat CT of the brain revealed acute/subacute and chronic subdural hematoma right sided about 3.5 cm in thickness with compression of the sulci and gyri in the right posterior region with a right to left f subfalcine shift of approximately 4.7 mm. Neurosurgery is been consulted. We are asked to see for neurological management. Laboratories reveal a macrocytic anemia, thrombocytopenia, hypokalemia, acute kidney injury, low albumin and elevated AMA 1/320 which is nuclear pattern nonspecific in setting of hepatitis C antibody positive Neurologically, patient is adequate protecting his airway. He has significant left-sided deficits 09/19: Awake and alert. Minimal left upper extremity weakness denies any shortness of breath currently. Following commands. Receiving platelet transfusions. 09/20: Awake and alert. Moving all 4 extremities. Minimal left upper extremity weakness. Not in any acute distress. Following commands. 09/21: Afebrile. 48 cc from right bur hole drain. Past 24 hours. Continues to have left upper extremity weakness. Tolerating diet. Positive BM 4 09/22: Resting in bed in no acute distress. Requesting removal of catheter. Blood pressure better controlled. Replacing magnesium potassium today. SUBJECTIVE: 09/23: Resting in bed in no acute distress. Requesting removal of catheter. Blood pressure well controlled. Condom catheter falling off. Objective Vital Signs Date Time Temp Pulse Resp B/P (MAP) Pulse Ox O2 Delivery O2 Flow Rate FiO2 09/23/17 06:00 66 09/23/17 04:00 97.9 16 116/56 (76) 99 09/20/17 21:45 21 Intake and Output 09/23/17 09/23/17 09/24/17 08:00 16:00 00:00 Intake Total 860 ml Output Total 2002 ml Balance -1142 ml Result Diagram: 09/23/17 0428 09/23/17 0428 Imaging Last Impressions Head CT 09/18/17 0000 Signed Impressions: Service Date/Time: Monday, September 18, 2017 12:44 - CONCLUSION: 1. There is acute, subacute and chronic subdural hematoma on the right. There is a sizable amount hemorrhage and hygroma resulting in significant compression of the sulci and gyri of the right frontal and parietal cortex as well is 5 mm of [id number] falcine shift. Kam Lockett MD Abdomen/Pelvis CT 09/09/17 0833 Signed Impressions: Service Date/Time: Saturday, September 09, 2017 09:09 - CONCLUSION: Extensive ascites with cirrhosis or varicosities. Prominent spleen with possible tiny subcapsular hematoma series 2 image 30. Minimal induration anterior abdominal wall left side. Gilbert Lockett MD FACR Chest X-Ray 09/09/17 0713 Signed Impressions: Service Date/Time: Saturday, September 09, 2017 07:34 - CONCLUSION: 1. No acute abnormality seen. 2. Increased density in the right paratracheal region. Jairo Kelly MD Shoulder X-Ray 09/09/17 0000 Signed Impressions: Service Date/Time: Saturday, September 09, 2017 21:01 - CONCLUSION: 1. No acute bony abnormality. Vito Minor MD Lower Extremity Ultrasound 09/09/17 0000 Signed Impressions: Service Date/Time: Saturday, September 09, 2017 21:41 - CONCLUSION: Normal examination. Henok Young MD Elbow X-Ray 09/09/17 0000 Signed Impressions: Service Date/Time: Saturday, September 09, 2017 20:53 - CONCLUSION: 1. No acute bony abnormalities. Vito Minor MD Procedures None Objective Remarks GENERAL: 62-year-old male disheveled resting in bed in no acute distress SKIN: Warm and dry. HEAD: Status post right bur hole with drain in place EYES: Pupils equal and round. No scleral icterus. No injection or drainage. ENT: No nasal bleeding or discharge. Mucous membranes pink and moist. NECK: Trachea midline. No JVD. CARDIOVASCULAR: Regular rate and rhythm. S1, S2 no S4. R without murmur RESPIRATORY: No accessory muscle use. Clear to auscultation. Breath sounds equal bilaterally. GASTROINTESTINAL: Abdomen soft, non-tender, nondistended. Hepatic and splenic margins not palpable. MUSCULOSKELETAL: Extremities without clubbing, cyanosis, or edema. No obvious deformities. NEUROLOGICAL: Strength 3 to 4+ out of 5 left upper extremity. 3-4 out of 5 left lower extremity. 5 out of 5 right upper lower extremity. Slight left facial droop. Normal sensation. Urinary Catheter: No Assessment to: Continue Vascular Central Line Catheter: No Assessment to: Continue A/P Assessment and Plan Neuro/Psych: Acute/subacute/chronic right subdural hematoma -3.5 cm thickness with compression of the sulci/gyri with the right to left subfalcine shift 4.7 mm History of EtOH use Chronic low back pain Acute encephalopathy CT brain 09/18 revealed acute, subacute and chronic components to right subdural hematoma. 3.5 cm. Compression of the sulci and gyri. Right frontal right-to- left subfalcine shift approximately 5 cm. Consultation neurosurgery noted recheck head CT in a.m. 09/19. Status post right bur hole by Dr. Carranza. -4 cc past 24 hours. Patient was placed on levetiracetam 500 mg IV twice daily 7 days 2% saline started at 30 cc an hour. Discontinue today 09/24 Blood pressure control keep systolic blood pressure less than 140 Multivitamin, thiamine and folate daily 3 days Seizure precautions Morphine sulfate 2-4 mg IV every 4 hours as needed pain Acetaminophen/Ofirmev1 g IV every 8 hours as needed for fever EEG with mild to moderate encephalopathic changes. No epileptic activity CV: Essential hypertension Currently on amlodipine 10 mg daily, KAMILAH inhibitor which will be held due to acute kidney injury, hydralazine 25 every 8 hours, furosemide 40 mg daily and Spironolactone 25 mg daily. Goal keep systolic blood pressure less than 140 using nicardipine drip/ labetalol as needed. Resp: Tobaccoism Nasal cannula to maintain saturations greater than equal to 92% Incentive spirometry while awake Tobacco cessation self-education booklet will be provided GI: Hepatitis C genotype 1A viral load positive LA class B esophagitis Portal hypertension Abdominal ascites Elevated transaminases Hypoalbuminemia CT abdomen/pelvis 09/09 revealed abdominal ascites, esophageal/gastric varices. Splenomegaly. Shrunken liver. Small splenic hematoma EGD 09/12 revealed LA class B esophagitis, gastric erythema of the antrum gastric and duodenal bulb/second portion, portal hypertension/gastropathy. Patient is on pantoprazole 40 mg po daily/home medications pantoprazole Advance diet as tolerated Docusate sodium/senna 1 tablet twice daily for bowel regimen Outpatient evaluation for positive hepatitis C genotype 1A for treatment Recheck liver function tests as clinically indicated. Labile but stable : Hoff catheter if indicated for accurate I's and O's in a critically ill patient Endo: Sliding scale insulin if indicated to maintain euglycemia Renal: Acute kidney injury Avoid nephrotoxic medications. KAMILAH inhibitor has been held Monitor urine output Accurate I's and O Heme: Macrocytic anemia Thrombocytopenia Coagulopathic state secondary to underlying liver disease Patient has been on Mephyton 5 mg p.o. daily since 09/11. Received 10 mg IM 1 per hospitalist. Will receive 10 mg IV daily 2 days starting 09/19. 5 mg p.o. 1 today. Received 4 pack platelets since admission along with 4 FFP, 2 liquid plasma, 2 cryoprecipitate ID: Monitor for signs and symptomatology of infection. Rheum/MSK: Chronic low back pain ARTEMIO 1:320 nucleolar positive with positive double-stranded DNA Nonspecific ARTEMIO findings. Not at 1: 640 Possibly also secondary to underlying liver disease/hepatitis dsdna was positive. Will need outpatient rheumatology workup PT evaluate and treat FEN: Replace electrolytes as clinically indicated Access -Utilize peripheral IV. Central line if indicated Prophylax -GI -pantoprazole -DVT -SCD/holding pharmacological prophylaxis in light of acute subdural hematoma Level 2 follow-up Coy Mahoney MD September 23, 2017 09:08
--- NOTE | 2017-09-23 09:18 | HHI.NSPN ---
History Chief Complaint: Left hemiparesis, right SDH. Interval History This is a 62-year-old male admitted on 09/09 with history of falls and right flank/abdominal pain. Imaging at that time included CT abdomen/pelvis revealed portal gastropathy/varices, abdominal ascites, small splenic hematoma and induration to the left side of the abdominal wall. Patient was seen by GI for possible bleeding. EGD and's 09/12 revealed LA class B esophagitis, gastric erythema of the antrum. Duodenal bulb and second part of the duodenum. Portal hypertension with gastropathy. He was noted to have a left-sided weakness and a CT scan of the head obtained today reveals a large subacute and chronic right frontoparietal subdural hemorrhage measuring about 3 cm in thickness at about 6 mm right to left midline shift. He has a chronic coagulopathy with elevated PT/ INR due to his cirrhosis and liver failure along with thrombocytopenia. He also has anemia, hypokalemia, acute kidney injury, low albumin and elevated ARTEMIO. He is lethargic but easily arousable and oriented and follows simple command and protecting his airway well. 09/19/17: Pt awake, alert, flat affect. Denies headache. Complains of thirst. Left hemiparesis. Getting EEG this morning. 09/20/17: Pt awake and alert. Denies headache. Left hemiparesis with some improvement. No n/v. Pt states he would like to proceed with procedure. 09/23/17: Pt awake and alert. Complains of headache all over. Left hemiparesis with some improvement from admission. Speech is clear. Follows commands well. Review of Systems General: Negative for: fever, chills, insomnia Respiratory: Negative for: shortness of breath, cough, sputum Cardiovascular: Negative for: chest pain Gastrointestinal: Negative for: nausea, vomitting, diarrhea, constipation Exam Results Vital Signs Date Time Temp Pulse Resp B/P (MAP) Pulse Ox O2 Delivery O2 Flow Rate FiO2 09/23/17 06:00 66 09/23/17 04:00 97.9 16 116/56 (76) 99 09/20/17 21:45 21 Intake and Output 09/23/17 09/23/17 09/24/17 08:00 16:00 00:00 Intake Total 860 ml Output Total 2002 ml Balance -1142 ml Physical Examination General: Pt awake and alert in NAD. Eyes: Pupils equal. Sclera with icterus. Resp: CTA bilaterally Heart: NSR no murmurs Abd: Soft positive bs Skin: Subdural drain exit site without signs of infection. Muscle: Moves all 4 extremities with left hemiparesis LUE more than LLE. Neuro: Pt awake and alert. Pupils 3mm bilaterally reactive bilaterally. Follows commands well. Speech clear and appropriate. subdural drain in place. Lab, Micro, Other Results Last Impressions Head CT 09/18/17 0000 Signed Impressions: Service Date/Time: Monday, September 18, 2017 12:44 - CONCLUSION: 1. There is acute, subacute and chronic subdural hematoma on the right. There is a sizable amount hemorrhage and hygroma resulting in significant compression of the sulci and gyri of the right frontal and parietal cortex as well is 5 mm of [id number] falcine shift. Kam Lockett MD Abdomen/Pelvis CT 09/09/17 0833 Signed Impressions: Service Date/Time: Saturday, September 09, 2017 09:09 - CONCLUSION: Extensive ascites with cirrhosis or varicosities. Prominent spleen with possible tiny subcapsular hematoma series 2 image 30. Minimal induration anterior abdominal wall left side. Gilbert Lockett MD FACR Chest X-Ray 09/09/17 0713 Signed Impressions: Service Date/Time: Saturday, September 09, 2017 07:34 - CONCLUSION: 1. No acute abnormality seen. 2. Increased density in the right paratracheal region. Jairo Kelly MD Shoulder X-Ray 09/09/17 0000 Signed Impressions: Service Date/Time: Saturday, September 09, 2017 21:01 - CONCLUSION: 1. No acute bony abnormality. Vito Minor MD Lower Extremity Ultrasound 09/09/17 0000 Signed Impressions: Service Date/Time: Saturday, September 09, 2017 21:41 - CONCLUSION: Normal examination. Henok Young MD Elbow X-Ray 09/09/17 0000 Signed Impressions: Service Date/Time: Saturday, September 09, 2017 20:53 - CONCLUSION: 1. No acute bony abnormalities. Vito Minor MD Laboratory Tests Test 09/23/17 04:28 White Blood Count 7.9 TH/MM3 Red Blood Count 2.71 MIL/MM3 Hemoglobin 10.0 GM/DL Hematocrit 28.4 % Mean Corpuscular Volume 104.7 FL Mean Corpuscular Hemoglobin 36.8 PG Mean Corpuscular Hemoglobin Concent 35.1 % Red Cell Distribution Width 16.5 % Platelet Count 85 TH/MM3 Mean Platelet Volume 8.7 FL Blood Urea Nitrogen 13 MG/DL Creatinine 1.07 MG/DL Random Glucose 88 MG/DL Calcium Level 8.5 MG/DL Phosphorus Level 3.8 MG/DL Magnesium Level 2.2 MG/DL Sodium Level 139 MEQ/L Potassium Level 3.8 MEQ/L Chloride Level 108 MEQ/L Carbon Dioxide Level 21.9 MEQ/L Anion Gap 9 MEQ/L Estimat Glomerular Filtration Rate 70 ML/MIN Medical Decision Making Impression and Plan A: 62-year-old gentleman with a large right frontoparietal subacute on chronic subdural hemorrhage with mass-effect and midline shift with associated left hemiparesis. Unfortunately he has advanced cirrhosis with coagulopathy and thrombocytopenia among other comorbidities. Pt electing to proceed with bedside right emelyn hole drainage of subdural hemorrhage evacuation. P: Follow up CT head this morning. Continue with close monitoring in the surgical intensive care unit with neuro checks. Continue with DVT prophylaxis pt on SCDs. Continue with GI prophylaxis pt on Protonix. Continue with rehab efforts- PT/OT Berhane Orellana September 23, 2017 9:18 am
[2017-09-23] MEDS: levETIRAcetam INJ 500 MG in SODIUM CHLORIDE 0.9% INJ 100 ML IV SCH ×2 (09:20→20:06)
[2017-09-23] MEDS: PANTOPRAZOLE SOD 40 MG DELAYED RELEASE TAB PO SCH (09:20)
[2017-09-23] MEDS: LACTULOSE SYRUP 20 GM/30 ML CUP PO SCH (09:20)
[2017-09-23] MEDS: SPIRONOLACTONE 25 MG TAB PO SCH (09:20)
[2017-09-23] MEDS: DOCUSATE SODIUM 50 MG/SENNA 8.6 MG TAB PO SCH ×2 (09:20→20:05)
--- NOTE | 2017-09-23 10:07 | RADRPT ---
EXAM DATE/TIME: 09/23/2017 09:47 [facility] COMPARISON: CT BRAIN W/O CONTRAST, September 18, 2017, 12:44. INDICATIONS : F/U subdural hematoma. RADIATION DOSE: 56.35 CTDIvol (mGy) MEDICAL HISTORY : Cardiovascular disease. Hypertension. SURGICAL HISTORY : None. ENCOUNTER: Subsequent ACUITY: 4 - 6 days PAIN SCALE: 0/10 LOCATION: cranial TECHNIQUE: Multiple contiguous axial images were obtained of the head. Using automated exposure control and adj ustment of the mA and/or kV according to patient size, radiation dose was kept as low as reasonably a chievable to obtain optimal diagnostic quality images. DICOM format image data is available electro nically for review and comparison. FINDINGS: There has been interval placement of a right frontal subdural drain. There has been replacement of so me of the frontal subdural fluid with air. Otherwise little change in the configuration with persiste nt grossly stable subfalcine shift in lateral ventricular compression with effacement of hemispheric cortical sulci. There are no new acute findings. CONCLUSION: Interval placement of subdural drain Jairo Singh MD on September 23, 2017 at 10:03 Board Certified Radiologist. This report was verified electronically.
[2017-09-24] VITALS (13 sets, daily range): BP systolic 97–126; BP diastolic 55–62; PULSE 77–98; RESP 10–20; TEMP 98.3–98.6; O2SAT 98–100
[2017-09-24] MEDS: CHLORHEXIDINE GLUCONATE 2 % 1 PACK (2 CLOTHS) TOP SCH (03:53)
[2017-09-24] MEDS: hydrALAZINE HCL 25 MG TAB PO SCH ×3 (05:32→21:31)
[2017-09-24] MEDS: ARTIFICIAL TEARS OPTH SOLN 15 ML BTL EACH EYE SCH ×3 (08:18→17:20)
[2017-09-24] MEDS: PANTOPRAZOLE SOD 40 MG DELAYED RELEASE TAB PO SCH (08:19)
[2017-09-24] MEDS: DOCUSATE SODIUM 50 MG/SENNA 8.6 MG TAB PO SCH ×2 (08:19→21:31)
[2017-09-24] MEDS: FUROSEMIDE 40 MG TAB PO SCH (08:19)
[2017-09-24] MEDS: SODIUM CHLORIDE 0.9% FLUSH 10 ML FLUSH IV FLUSH SCH ×2 (08:19→21:30)
[2017-09-24] MEDS: SPIRONOLACTONE 25 MG TAB PO SCH (08:19)
[2017-09-24] MEDS: LACTULOSE SYRUP 20 GM/30 ML CUP PO SCH (08:19)
[2017-09-24] MEDS: levETIRAcetam INJ 500 MG in SODIUM CHLORIDE 0.9% INJ 100 ML IV SCH ×2 (08:19→21:30)
[2017-09-24] MEDS: MORPHINE SULFATE 4 MG/ML INJ IV PUSH PRN ×3 (09:00→21:30)
--- NOTE | 2017-09-24 09:08 | HHI.NSPN ---
(Berhane Orellana) History Chief Complaint: Left hemiparesis, right SDH. (Berhane Orellana) Interval History This is a 62-year-old male admitted on 09/09 with history of falls and right flank/abdominal pain. Imaging at that time included CT abdomen/pelvis revealed portal gastropathy/varices, abdominal ascites, small splenic hematoma and induration to the left side of the abdominal wall. Patient was seen by GI for possible bleeding. EGD and's 09/12 revealed LA class B esophagitis, gastric erythema of the antrum. Duodenal bulb and second part of the duodenum. Portal hypertension with gastropathy. He was noted to have a left-sided weakness and a CT scan of the head obtained today reveals a large subacute and chronic right frontoparietal subdural hemorrhage measuring about 3 cm in thickness at about 6 mm right to left midline shift. He has a chronic coagulopathy with elevated PT/ INR due to his cirrhosis and liver failure along with thrombocytopenia. He also has anemia, hypokalemia, acute kidney injury, low albumin and elevated ARTEMIO. He is lethargic but easily arousable and oriented and follows simple command and protecting his airway well. 09/19/17: Pt awake, alert, flat affect. Denies headache. Complains of thirst. Left hemiparesis. Getting EEG this morning. 09/20/17: Pt awake and alert. Denies headache. Left hemiparesis with some improvement. No n/v. Pt states he would like to proceed with procedure. 09/23/17: Pt awake and alert. Complains of headache all over. Left hemiparesis with some improvement from admission. Speech is clear. Follows commands well. 09/24/17: Pt awakens to voice. Complains of mild headache and mild nausea. Follows commands well. (Berhane Orellana) Review of Systems General: Negative for: fever, chills, insomnia Respiratory: Negative for: shortness of breath, cough, sputum Cardiovascular: Negative for: chest pain Gastrointestinal: Negative for: nausea, vomitting, diarrhea, constipation ( Berhane Orellana) Exam Results Vital Signs Date Time Temp Pulse Resp B/P (MAP) Pulse Ox O2 Delivery O2 Flow Rate FiO2 09/24/17 06:00 77 09/24/17 04:00 98.3 12 120/60 (80) 98 09/23/17 20:53 21 Intake and Output 09/24/17 09/24/17 09/25/17 08:00 16:00 00:00 Intake Total 575 ml Output Total 950 ml Balance -375 ml (Berhane Orellana) Physical Examination General: Pt awake and alert in NAD. Eyes: Pupils equal. Sclera with icterus. Resp: CTA bilaterally Heart: NSR no murmurs Abd: Soft positive bs Skin: Subdural drain exit site without signs of infection. Muscle: Moves all 4 extremities with left hemiparesis LUE more than LLE. Neuro: Pt awake and alert. Pupils 3mm bilaterally reactive bilaterally. Follows commands well. Speech clear and appropriate. Subdural drain in place draining. (Berhane Orellana) Lab, Micro, Other Results Last Impressions Head CT 09/23/17 0000 Signed Impressions: Service Date/Time: Saturday, September 23, 2017 09:47 - CONCLUSION: Interval placement of subdural drain Jairo Singh MD Abdomen/Pelvis CT 09/09/17 0833 Signed Impressions: Service Date/Time: Saturday, September 09, 2017 09:09 - CONCLUSION: Extensive ascites with cirrhosis or varicosities. Prominent spleen with possible tiny subcapsular hematoma series 2 image 30. Minimal induration anterior abdominal wall left side. Gilbert Lockett MD FACR Chest X-Ray 09/09/17 0713 Signed Impressions: Service Date/Time: Saturday, September 09, 2017 07:34 - CONCLUSION: 1. No acute abnormality seen. 2. Increased density in the right paratracheal region. Jairo Kelly MD Shoulder X-Ray 09/09/17 0000 Signed Impressions: Service Date/Time: Saturday, September 09, 2017 21:01 - CONCLUSION: 1. No acute bony abnormality. Vito Minor MD Lower Extremity Ultrasound 09/09/17 0000 Signed Impressions: Service Date/Time: Saturday, September 09, 2017 21:41 - CONCLUSION: Normal examination. Henok Young MD Elbow X-Ray 09/09/17 0000 Signed Impressions: Service Date/Time: Saturday, September 09, 2017 20:53 - CONCLUSION: 1. No acute bony abnormalities. Vito Minor MD (Berhane Orellana) Medical Decision Making Impression and Plan A: 62-year-old gentleman with a large right frontoparietal subacute on chronic subdural hemorrhage with mass-effect and midline shift with associated left hemiparesis. Unfortunately he has advanced cirrhosis with coagulopathy and thrombocytopenia among other comorbidities. Pt electing to proceed with bedside right emelyn hole drainage of subdural hemorrhage evacuation. P: Follow up CT head this morning. Continue with close monitoring in the surgical intensive care unit with neuro checks. Continue with DVT prophylaxis pt on SCDs. Continue with GI prophylaxis pt on Protonix. Continue with rehab efforts- PT/OT (Berhane Orellana) Attending Statement The exam, history, and the medical decision-making described in the above note were completed with the assistance of the mid-level provider. I reviewed and agree with the findings presented. I attest that I had a [id number] encounter with the patient on the same day, and personally performed and documented my assessment and findings in the medical record. Follow-up CT scan of the head with decreased subdural hemorrhage and pneumocephalus. We will continue with subdural drain for another day. Overall improving neurologic status. (Al Carranza MD) Berhane Orellana September 24, 2017 09:08 Al Carranza MD September 24, 2017 12:17
--- NOTE | 2017-09-24 12:31 | HHI.CCPN ---
Subjective Remarks/Hospital Course 09/18: This is a 62-year-old male. Date of admission 09/09/2017. Date of consultation 09/18/2017. Past medical history includes alcohol use/past abuse , liver cirrhosis with hepatitis C antibody positive, abdominal ascites, macrocytic anemia with chronic thrombocytopenia, chronic low back pain, essential hypertension, anxiety and tobaccoism. Patient was recently admitted to [facility] on 09/09 with history of falls and right flank/abdominal pain. Imaging at that time included CT abdomen/pelvis revealed portal gastropathy/ varices, abdominal ascites, small splenic hematoma and induration to the left side of the abdominal wall. Imaging of the elbow and ankle were negative for acute fracture. Patient was seen by GI for possible bleeding. EGD and's 09/12 revealed LA class B esophagitis, gastric erythema of the antrum. Duodenal bulb and second part of the duodenum. Portal hypertension with gastropathy. Today, patient according to staff was left-sided weakness with neglect. Stat CT of the brain revealed acute/subacute and chronic subdural hematoma right sided about 3.5 cm in thickness with compression of the sulci and gyri in the right posterior region with a right to left f subfalcine shift of approximately 4.7 mm. Neurosurgery is been consulted. We are asked to see for neurological management. Laboratories reveal a macrocytic anemia, thrombocytopenia, hypokalemia, acute kidney injury, low albumin and elevated AMA 1/320 which is nuclear pattern nonspecific in setting of hepatitis C antibody positive Neurologically, patient is adequate protecting his airway. He has significant left-sided deficits 09/19: Awake and alert. Minimal left upper extremity weakness denies any shortness of breath currently. Following commands. Receiving platelet transfusions. 09/20: Awake and alert. Moving all 4 extremities. Minimal left upper extremity weakness. Not in any acute distress. Following commands. 09/21: Afebrile. 48 cc from right bur hole drain. Past 24 hours. Continues to have left upper extremity weakness. Tolerating diet. Positive BM 4 09/22: Resting in bed in no acute distress. Requesting removal of catheter. Blood pressure better controlled. Replacing magnesium potassium today. 09/23: Resting in bed in no acute distress. Requesting removal of catheter. Blood pressure well controlled. Condom catheter falling off. SUBJECTIVE: 09/24: Currently resting in bed in no acute distress. Appears depressed. Plan for repeat CT brain tomorrow. Subdural appears stable and CT brain from yesterday. No output from bur hole overnight. Objective Vital Signs Date Time Temp Pulse Resp B/P (MAP) Pulse Ox O2 Delivery O2 Flow Rate FiO2 09/24/17 12:00 77 09/24/17 12:00 98.4 12 97/55 (69) 99 09/23/17 20:53 21 Intake and Output 09/24/17 09/24/17 09/25/17 08:00 16:00 00:00 Intake Total 575 ml 105 ml Output Total 950 ml Balance -375 ml 105 ml Result Diagram: 09/23/17 0428 09/23/17 0428 Imaging Last Impressions Head CT 09/23/17 0000 Signed Impressions: Service Date/Time: Saturday, September 23, 2017 09:47 - CONCLUSION: Interval placement of subdural drain Jairo Singh MD Abdomen/Pelvis CT 09/09/17 0833 Signed Impressions: Service Date/Time: Saturday, September 09, 2017 09:09 - CONCLUSION: Extensive ascites with cirrhosis or varicosities. Prominent spleen with possible tiny subcapsular hematoma series 2 image 30. Minimal induration anterior abdominal wall left side. Gilbert Lockett MD FACR Chest X-Ray 09/09/17 0713 Signed Impressions: Service Date/Time: Saturday, September 09, 2017 07:34 - CONCLUSION: 1. No acute abnormality seen. 2. Increased density in the right paratracheal region. Jairo Kelly MD Shoulder X-Ray 09/09/17 0000 Signed Impressions: Service Date/Time: Saturday, September 09, 2017 21:01 - CONCLUSION: 1. No acute bony abnormality. Vito Minor MD Lower Extremity Ultrasound 09/09/17 0000 Signed Impressions: Service Date/Time: Saturday, September 09, 2017 21:41 - CONCLUSION: Normal examination. Henok Young MD Elbow X-Ray 09/09/17 0000 Signed Impressions: Service Date/Time: Saturday, September 09, 2017 20:53 - CONCLUSION: 1. No acute bony abnormalities. Vito Minor MD Procedures None Objective Remarks GENERAL: 62-year-old male disheveled resting in bed in no acute distress SKIN: Warm and dry. HEAD: Status post right bur hole with drain in place EYES: Pupils equal and round. No scleral icterus. No injection or drainage. ENT: No nasal bleeding or discharge. Mucous membranes pink and moist. NECK: Trachea midline. No JVD. CARDIOVASCULAR: Regular rate and rhythm. S1, S2 no S4. R without murmur RESPIRATORY: No accessory muscle use. Clear to auscultation. Breath sounds equal bilaterally. GASTROINTESTINAL: Abdomen soft, non-tender, nondistended. Hepatic and splenic margins not palpable. MUSCULOSKELETAL: Extremities without clubbing, cyanosis, or edema. No obvious deformities. NEUROLOGICAL: Strength 3 to 4+ out of 5 left upper extremity. 3-4 out of 5 left lower extremity. 5 out of 5 right upper lower extremity. Slight left facial droop. Normal sensation. Urinary Catheter: No Assessment to: Continue Vascular Central Line Catheter: No Assessment to: Continue A/P Assessment and Plan Neuro/Psych: Acute/subacute/chronic right subdural hematoma -3.5 cm thickness with compression of the sulci/gyri with the right to left subfalcine shift 4.7 mm History of EtOH use Chronic low back pain Acute encephalopathy CT brain 09/18 revealed acute, subacute and chronic components to right subdural hematoma. 3.5 cm. Compression of the sulci and gyri. Right frontal right-to- left subfalcine shift approximately [address] brain 09/23 - interval placement of a right frontal subdural drain. There has been replacement of some of the frontal subdural fluid with air. Otherwise little change in the configuration with persistent grossly stable subfalcine shift in lateral ventricular compression with effacement of hemispheric cortical sulci. Consultation neurosurgery noted recheck head CT in a.m. 09/25 Status post right bur hole by Dr. Carranza. -0 cc past 24 hours. Patient was placed on levetiracetam 500 mg IV twice daily 7 days 2% saline started at 30 cc an hour. Discontinue today 09/24 Blood pressure control keep systolic blood pressure less than 140 Multivitamin, thiamine and folate daily 3 days has been completed Seizure precautions Morphine sulfate 2-4 mg IV every 4 hours as needed pain Acetaminophen/Ofirmev1 g IV every 8 hours as needed for fever EEG with mild to moderate encephalopathic changes. No epileptic activity CV: Essential hypertension Currently on amlodipine 10 mg daily, KAMILAH inhibitor which will be held due to acute kidney injury, hydralazine 25 every 8 hours, furosemide 40 mg daily and Spironolactone 25 mg daily. Goal keep systolic blood pressure less than 140 using nicardipine drip/ labetalol as needed. Resp: Tobaccoism Nasal cannula to maintain saturations greater than equal to 92% Incentive spirometry while awake Tobacco cessation self-education booklet will be provided GI: Hepatitis C genotype 1A viral load positive LA class B esophagitis Portal hypertension Abdominal ascites Elevated transaminases Hypoalbuminemia CT abdomen/pelvis 09/09 revealed abdominal ascites, esophageal/gastric varices. Splenomegaly. Shrunken liver. Small splenic hematoma EGD 09/12 revealed LA class B esophagitis, gastric erythema of the antrum gastric and duodenal bulb/second portion, portal hypertension/gastropathy. Patient is on pantoprazole 40 mg po daily/home medications pantoprazole Advance diet as tolerated Docusate sodium/senna 1 tablet twice daily for bowel regimen Outpatient evaluation for positive hepatitis C genotype 1A for treatment Recheck liver function tests as clinically indicated. Labile but stable : Hoff catheter if indicated for accurate I's and O's in a critically ill patient Endo: Sliding scale insulin if indicated to maintain euglycemia Renal: Acute kidney injury Avoid nephrotoxic medications. KAMILAH inhibitor has been held Monitor urine output Accurate I's and O Heme: Macrocytic anemia Thrombocytopenia Coagulopathic state secondary to underlying liver disease Patient has been on Mephyton 5 mg p.o. daily since 09/11. Received 10 mg IM 1 per hospitalist. Will receive 10 mg IV daily 2 days starting 09/19. 5 mg p.o. 1 today. Received 4 pack platelets since admission along with 4 FFP, 2 liquid plasma, 2 cryoprecipitate ID: Monitor for signs and symptomatology of infection. Rheum/MSK: Chronic low back pain ARTEMIO 1:320 nucleolar positive with positive double-stranded DNA Nonspecific ARTEMIO findings. Not at 1: 640 Possibly also secondary to underlying liver disease/hepatitis dsdna was positive. Will need outpatient rheumatology workup PT evaluate and treat FEN: Replace electrolytes as clinically indicated Access -Utilize peripheral IV. Central line if indicated Prophylax -GI -pantoprazole -DVT -SCD/holding pharmacological prophylaxis in light of acute subdural hematoma Level 2 follow-up Coy Mahoney MD September 24, 2017 12:31
[2017-09-24] MEDS ORDERED: PHYTONADIONE 5 MG TAB PO ONE (12:45)
[2017-09-24 13:08] LABS: AUTOMATED NEUTROPHIL # 6.5 TH/MM3 (1.8-7.7); BASOPHIL % 0.4 % (0.0-2.0); EOSINOPHIL # 0.2 TH/MM3 (0-0.4); HEMOGLOBIN 9.9 GM/DL (13.0-17.0); LYMPHOCYTE # 1.2 TH/MM3 (1.0-4.8); MEAN CELL VOLUME 105.1 FL (80.0-100.0); MEAN CORPUSCULAR HEMOGLOBIN 37.1 PG (27.0-34.0); MEAN CORPUSCULAR HGB CONC 35.3 % (32.0-36.0); MEAN PLATELET VOLUME 9.2 FL (7.0-11.0); MONO % 12.5 % (0.0-8.0); MONOCYTE # 1.1 TH/MM3 (0-0.9); NEUT % 72.1 % (16.0-70.0); PLATELET COUNT 101 TH/MM3 (150-450); RED BLOOD COUNT 2.66 MIL/MM3 (4.50-5.90); RED CELL DISTRIBUTION WIDTH 16.6 % (11.6-17.2); WHITE BLOOD COUNT 8.9 TH/MM3 (4.0-11.0)
[2017-09-24 13:09] LABS: INTERNATIONAL NORMALIZED RATIO 1.8 RATIO; PROTHROMBIN TIME - PATIENT 18.2 SEC (9.8-11.6)
[2017-09-24 13:23] LABS: ALBUMIN 2.2 GM/DL (3.4-5.0); ALT (GPT) 28 U/L (12-78); AST (GOT) 51 U/L (15-37); BICARBONATE 21.9 MEQ/L (21.0-32.0); BLOOD UREA NITROGEN 20 MG/DL (7-18); CALCIUM 8.6 MG/DL (8.5-10.1); CHLORIDE 106 MEQ/L (98-107); CREATININE 1.39 MG/DL (0.60-1.30); GLOMERULAR FILTRATION RATE 51 ML/MIN (>89); GLUCOSE,RANDOM 118 MG/DL (74-106); MAGNESIUM 1.8 MG/DL (1.5-2.5); PHOSPHORUS 3.8 MG/DL (2.5-4.9); SODIUM (NA) 137 MEQ/L (136-145)
[2017-09-24 13:30] LABS: ALKALINE PHOSPHATASE 101 U/L (45-117); TOTAL BILIRUBIN ADULT 8.7 MG/DL (0.2-1.0); TOTAL PROTEIN 7.9 GM/DL (6.4-8.2)
[2017-09-24] MEDS ORDERED: PHYTONADIONE 5 MG/SWFI 5 ML ORAL SYR PO ONE (14:30)
[2017-09-24] MEDS ORDERED: PHYTONADIONE 2.5 MG/SWFI 2.5 ML ORAL SYR PO ONE (14:30)
[2017-09-24] MEDS: SODIUM CHLORIDE 0.9% FLUSH 10 ML FLUSH IV FLUSH PRN (21:30)
[2017-09-25] VITALS (14 sets, daily range): BP systolic 112–148; BP diastolic 54–66; PULSE 81–98; RESP 12–24; TEMP 95.5–98.5; O2SAT 96–100
[2017-09-25] MEDS: MORPHINE SULFATE 4 MG/ML INJ IV PUSH PRN ×2 (02:59→08:36)
[2017-09-25] MEDS: CHLORHEXIDINE GLUCONATE 2 % 1 PACK (2 CLOTHS) TOP SCH (03:11)
[2017-09-25] MEDS: hydrALAZINE HCL 25 MG TAB PO SCH ×3 (06:30→21:32)
[2017-09-25 06:41] LABS: HEMATOCRIT 27.2 % (39.0-51.0); HEMOGLOBIN 9.7 GM/DL (13.0-17.0); MEAN CELL VOLUME 104.4 FL (80.0-100.0); MEAN CORPUSCULAR HEMOGLOBIN 37.1 PG (27.0-34.0); MEAN CORPUSCULAR HGB CONC 35.5 % (32.0-36.0); MEAN PLATELET VOLUME 8.8 FL (7.0-11.0); PLATELET COUNT 84 TH/MM3 (150-450); RED BLOOD COUNT 2.61 MIL/MM3 (4.50-5.90); RED CELL DISTRIBUTION WIDTH 16.9 % (11.6-17.2); WHITE BLOOD COUNT 9.5 TH/MM3 (4.0-11.0)
[2017-09-25 06:47] LABS: INTERNATIONAL NORMALIZED RATIO 1.8 RATIO; PROTHROMBIN TIME - PATIENT 18.3 SEC (9.8-11.6)
[2017-09-25 07:07] LABS: BICARBONATE 21.9 MEQ/L (21.0-32.0); CALCIUM 8.6 MG/DL (8.5-10.1); CREATININE 1.42 MG/DL (0.60-1.30)
[2017-09-25] MEDS: SPIRONOLACTONE 25 MG TAB PO SCH (08:29)
[2017-09-25] MEDS: MULTIVITAMIN TAB PO SCH (08:29)
[2017-09-25] MEDS: PANTOPRAZOLE SOD 40 MG DELAYED RELEASE TAB PO SCH (08:29)
[2017-09-25] MEDS: THIAMINE HCL 100 MG TAB PO SCH (08:29)
[2017-09-25] MEDS: FUROSEMIDE 40 MG TAB PO SCH (08:30)
[2017-09-25] MEDS: LACTULOSE SYRUP 20 GM/30 ML CUP PO SCH (08:34)
[2017-09-25] MEDS: levETIRAcetam INJ 500 MG in SODIUM CHLORIDE 0.9% INJ 100 ML IV SCH (08:35)
[2017-09-25] MEDS: ARTIFICIAL TEARS OPTH SOLN 15 ML BTL EACH EYE SCH ×3 (08:35→18:00)
[2017-09-25] MEDS: DOCUSATE SODIUM 50 MG/SENNA 8.6 MG TAB PO SCH ×2 (08:35→21:32)
[2017-09-25] MEDS: SODIUM CHLORIDE 0.9% FLUSH 10 ML FLUSH IV FLUSH SCH ×2 (08:35→21:33)
--- NOTE | 2017-09-25 09:22 | HHI.NSPN ---
History Chief Complaint: Left hemiparesis, right SDH. Interval History This is a 62-year-old male admitted on 09/09 with history of falls and right flank/abdominal pain. Imaging at that time included CT abdomen/pelvis revealed portal gastropathy/varices, abdominal ascites, small splenic hematoma and induration to the left side of the abdominal wall. Patient was seen by GI for possible bleeding. EGD and's 09/12 revealed LA class B esophagitis, gastric erythema of the antrum. Duodenal bulb and second part of the duodenum. Portal hypertension with gastropathy. He was noted to have a left-sided weakness and a CT scan of the head obtained today reveals a large subacute and chronic right frontoparietal subdural hemorrhage measuring about 3 cm in thickness at about 6 mm right to left midline shift. He has a chronic coagulopathy with elevated PT/ INR due to his cirrhosis and liver failure along with thrombocytopenia. He also has anemia, hypokalemia, acute kidney injury, low albumin and elevated ARTEMIO. He is lethargic but easily arousable and oriented and follows simple command and protecting his airway well. 09/19/17: Pt awake, alert, flat affect. Denies headache. Complains of thirst. Left hemiparesis. Getting EEG this morning. 09/20/17: Pt awake and alert. Denies headache. Left hemiparesis with some improvement. No n/v. Pt states he would like to proceed with procedure. 09/23/17: Pt awake and alert. Complains of headache all over. Left hemiparesis with some improvement from admission. Speech is clear. Follows commands well. 09/24/17: Pt awakens to voice. Complains of mild headache and mild nausea. Follows commands well. 09/25/17: Pt awake and alert. Complains of mild headache all over. No n/v. Left hemiparesis. Subdural drain came out this morning. Exit site is clean Steri strip being applied by RN. Review of Systems General: Negative for: fever, chills, insomnia Respiratory: Negative for: shortness of breath, cough, sputum Cardiovascular: Negative for: chest pain Gastrointestinal: Negative for: nausea, vomitting, diarrhea, constipation Exam Results Vital Signs Date Time Temp Pulse Resp B/P (MAP) Pulse Ox O2 Delivery O2 Flow Rate FiO2 09/25/17 06:00 98 09/25/17 04:00 95.5 12 117/57 (77) 96 09/24/17 22:05 21 Intake and Output 09/25/17 09/25/17 09/26/17 08:00 16:00 00:00 Intake Total 608 ml Output Total 1128 ml Balance -520 ml Physical Examination General: Pt awake and alert in NAD. Eyes: Pupils equal. Sclera with icterus. Resp: CTA bilaterally Heart: NSR no murmurs Abd: Soft positive bs Skin: Subdural drain exit site without signs of infection. Muscle: Moves all 4 extremities with left hemiparesis LUE more than LLE. Neuro: Pt awake and alert. Pupils 3mm bilaterally reactive bilaterally. Follows commands well. Speech clear and appropriate. Subdural drain exit site clean and dry not currently draining. Will place steri strip at exit site. Lab, Micro, Other Results Last Impressions Head CT 09/23/17 0000 Signed Impressions: Service Date/Time: Saturday, September 23, 2017 09:47 - CONCLUSION: Interval placement of subdural drain Jairo Singh MD Abdomen/Pelvis CT 09/09/17 0833 Signed Impressions: Service Date/Time: Saturday, September 09, 2017 09:09 - CONCLUSION: Extensive ascites with cirrhosis or varicosities. Prominent spleen with possible tiny subcapsular hematoma series 2 image 30. Minimal induration anterior abdominal wall left side. Gilbert Lockett MD FACR Chest X-Ray 09/09/17 0713 Signed Impressions: Service Date/Time: Saturday, September 09, 2017 07:34 - CONCLUSION: 1. No acute abnormality seen. 2. Increased density in the right paratracheal region. Jairo Kelly MD Shoulder X-Ray 09/09/17 0000 Signed Impressions: Service Date/Time: Saturday, September 09, 2017 21:01 - CONCLUSION: 1. No acute bony abnormality. Vito Minor MD Lower Extremity Ultrasound 09/09/17 0000 Signed Impressions: Service Date/Time: Saturday, September 09, 2017 21:41 - CONCLUSION: Normal examination. Henok Young MD Elbow X-Ray 09/09/17 0000 Signed Impressions: Service Date/Time: Saturday, September 09, 2017 20:53 - CONCLUSION: 1. No acute bony abnormalities. Vito Minor MD Laboratory Tests Test 09/24/17 12:08 09/25/17 05:49 White Blood Count 8.9 TH/MM3 9.5 TH/MM3 Red Blood Count 2.66 MIL/MM3 2.61 MIL/MM3 Hemoglobin 9.9 GM/DL 9.7 GM/DL Hematocrit 28.0 % 27.2 % Mean Corpuscular Volume 105.1 FL 104.4 FL Mean Corpuscular Hemoglobin 37.1 PG 37.1 PG Mean Corpuscular Hemoglobin Concent 35.3 % 35.5 % Red Cell Distribution Width 16.6 % 16.9 % Platelet Count 101 TH/MM3 84 TH/MM3 Mean Platelet Volume 9.2 FL 8.8 FL Neutrophils (%) (Auto) 72.1 % Lymphocytes (%) (Auto) 13.0 % Monocytes (%) (Auto) 12.5 % Eosinophils (%) (Auto) 2.0 % Basophils (%) (Auto) 0.4 % Neutrophils # (Auto) 6.5 TH/MM3 Lymphocytes # (Auto) 1.2 TH/MM3 Monocytes # (Auto) 1.1 TH/MM3 Eosinophils # (Auto) 0.2 TH/MM3 Basophils # (Auto) 0.0 TH/MM3 CBC Comment DIFF FINAL Differential Comment Prothrombin Time 18.2 SEC 18.3 SEC Prothromb Time International Ratio 1.8 RATIO 1.8 RATIO Activated Partial Thromboplast Time 39.3 SEC 40.2 SEC Blood Urea Nitrogen 20 MG/DL 21 MG/DL Creatinine 1.39 MG/DL 1.42 MG/DL Random Glucose 118 MG/DL 91 MG/DL Total Protein 7.9 GM/DL Albumin 2.2 GM/DL Calcium Level 8.6 MG/DL 8.6 MG/DL Phosphorus Level 3.8 MG/DL Magnesium Level 1.8 MG/DL Alkaline Phosphatase 101 U/L Aspartate Amino Transf (AST/SGOT) 51 U/L Alanine Aminotransferase (ALT/SGPT) 28 U/L Total Bilirubin 8.7 MG/DL Sodium Level 137 MEQ/L 137 MEQ/L Potassium Level 4.2 MEQ/L 3.7 MEQ/L Chloride Level 106 MEQ/L 106 MEQ/L Carbon Dioxide Level 21.9 MEQ/L 21.9 MEQ/L Anion Gap 9 MEQ/L 9 MEQ/L Estimat Glomerular Filtration Rate 51 ML/MIN 50 ML/MIN Medical Decision Making Impression and Plan A: 62-year-old gentleman with a large right frontoparietal subacute on chronic subdural hemorrhage with mass-effect and midline shift with associated left hemiparesis. Unfortunately he has advanced cirrhosis with coagulopathy and thrombocytopenia among other comorbidities. Pt electing to proceed with bedside right emleyn hole drainage of subdural hemorrhage evacuation. P: Continue with close monitoring in the surgical intensive care unit with neuro checks. Continue with DVT prophylaxis pt on SCDs. Continue with GI prophylaxis pt on Protonix. Continue with rehab efforts- PT/OT Subdural drain came out this morning. Exit site cleaned by RN with Betadine and Steri strip being placed. Berhane Orellana September 25, 2017 9:22 am
--- NOTE | 2017-09-25 11:46 | HHI.CCPN ---
Subjective Remarks/Hospital Course 09/18: This is a 62-year-old male. Date of admission 09/09/2017. Date of consultation 09/18/2017. Past medical history includes alcohol use/past abuse , liver cirrhosis with hepatitis C antibody positive, abdominal ascites, macrocytic anemia with chronic thrombocytopenia, chronic low back pain, essential hypertension, anxiety and tobaccoism. Patient was recently admitted to [facility] on 09/09 with history of falls and right flank/abdominal pain. Imaging at that time included CT abdomen/pelvis revealed portal gastropathy/ varices, abdominal ascites, small splenic hematoma and induration to the left side of the abdominal wall. Imaging of the elbow and ankle were negative for acute fracture. Patient was seen by GI for possible bleeding. EGD and's 09/12 revealed LA class B esophagitis, gastric erythema of the antrum. Duodenal bulb and second part of the duodenum. Portal hypertension with gastropathy. Today, patient according to staff was left-sided weakness with neglect. Stat CT of the brain revealed acute/subacute and chronic subdural hematoma right sided about 3.5 cm in thickness with compression of the sulci and gyri in the right posterior region with a right to left f subfalcine shift of approximately 4.7 mm. Neurosurgery is been consulted. We are asked to see for neurological management. Laboratories reveal a macrocytic anemia, thrombocytopenia, hypokalemia, acute kidney injury, low albumin and elevated AMA 1/320 which is nuclear pattern nonspecific in setting of hepatitis C antibody positive Neurologically, patient is adequate protecting his airway. He has significant left-sided deficits 09/19: Awake and alert. Minimal left upper extremity weakness denies any shortness of breath currently. Following commands. Receiving platelet transfusions. 09/20: Awake and alert. Moving all 4 extremities. Minimal left upper extremity weakness. Not in any acute distress. Following commands. 09/21: Afebrile. 48 cc from right bur hole drain. Past 24 hours. Continues to have left upper extremity weakness. Tolerating diet. Positive BM 4 09/22: Resting in bed in no acute distress. Requesting removal of catheter. Blood pressure better controlled. Replacing magnesium potassium today. 09/23: Resting in bed in no acute distress. Requesting removal of catheter. Blood pressure well controlled. Condom catheter falling off. 09/24: Currently resting in bed in no acute distress. Appears depressed. Plan for repeat CT brain tomorrow. Subdural appears stable and CT brain from yesterday. No output from bur hole overnight. SUBJECTIVE: 09/25: Objective Vital Signs Date Time Temp Pulse Resp B/P (MAP) Pulse Ox O2 Delivery O2 Flow Rate FiO2 09/25/17 08:18 96 21 09/25/17 06:00 98 09/25/17 04:00 95.5 12 117/57 (77) Intake and Output 09/25/17 09/25/17 09/25/17 07:59 15:59 23:59 Intake Total 608 ml Output Total 1128 ml Balance -520 ml Result Diagram: 09/25/17 0549 09/25/17 0549 Imaging Last Impressions Head CT 09/23/17 0000 Signed Impressions: Service Date/Time: Saturday, September 23, 2017 09:47 - CONCLUSION: Interval placement of subdural drain Jairo Singh MD Abdomen/Pelvis CT 09/09/17 0833 Signed Impressions: Service Date/Time: Saturday, September 09, 2017 09:09 - CONCLUSION: Extensive ascites with cirrhosis or varicosities. Prominent spleen with possible tiny subcapsular hematoma series 2 image 30. Minimal induration anterior abdominal wall left side. Gilbert Lockett MD FACR Chest X-Ray 09/09/17 0713 Signed Impressions: Service Date/Time: Saturday, September 09, 2017 07:34 - CONCLUSION: 1. No acute abnormality seen. 2. Increased density in the right paratracheal region. Jairo Kelly MD Shoulder X-Ray 09/09/17 0000 Signed Impressions: Service Date/Time: Saturday, September 09, 2017 21:01 - CONCLUSION: 1. No acute bony abnormality. Vito Minor MD Lower Extremity Ultrasound 09/09/17 0000 Signed Impressions: Service Date/Time: Saturday, September 09, 2017 21:41 - CONCLUSION: Normal examination. Henok Young MD Elbow X-Ray 09/09/17 0000 Signed Impressions: Service Date/Time: Saturday, September 09, 2017 20:53 - CONCLUSION: 1. No acute bony abnormalities. Vito Minor MD Procedures None Objective Remarks GENERAL: 62-year-old male disheveled resting in bed in no acute distress SKIN: Warm and dry. HEAD: Status post right bur hole with drain in place EYES: Pupils equal and round. No scleral icterus. No injection or drainage. ENT: No nasal bleeding or discharge. Mucous membranes pink and moist. NECK: Trachea midline. No JVD. CARDIOVASCULAR: Regular rate and rhythm. S1, S2 no S4. R without murmur RESPIRATORY: No accessory muscle use. Clear to auscultation. Breath sounds equal bilaterally. GASTROINTESTINAL: Abdomen soft, non-tender, nondistended. Hepatic and splenic margins not palpable. MUSCULOSKELETAL: Extremities without clubbing, cyanosis, or edema. No obvious deformities. NEUROLOGICAL: Strength 3 to 4+ out of 5 left upper extremity. 3-4 out of 5 left lower extremity. 5 out of 5 right upper lower extremity. Slight left facial droop. Normal sensation. A/P Assessment and Plan Neuro/Psych: Acute/subacute/chronic right subdural hematoma -3.5 cm thickness with compression of the sulci/gyri with the right to left subfalcine shift 4.7 mm History of EtOH use Chronic low back pain Acute encephalopathy CT brain 09/18 revealed acute, subacute and chronic components to right subdural hematoma. 3.5 cm. Compression of the sulci and gyri. Right frontal right-to- left subfalcine shift approximately [address] brain 09/23 - interval placement of a right frontal subdural drain. There has been replacement of some of the frontal subdural fluid with air. Otherwise little change in the configuration with persistent grossly stable subfalcine shift in lateral ventricular compression with effacement of hemispheric cortical sulci. Consultation neurosurgery noted recheck head CT in a.m. 09/25 Status post right bur hole by Dr. Carranza. Patient removed drain yesterday Patient was placed on levetiracetam 500 mg IV twice daily 7 days 2% saline started at 30 cc an hour. Discontinue today 09/24 Blood pressure control keep systolic blood pressure less than 140 Multivitamin, thiamine and folate daily 3 days has been completed Seizure precautions Morphine sulfate 2-4 mg IV every 4 hours as needed pain Acetaminophen/Ofirmev1 g IV every 8 hours as needed for fever EEG with mild to moderate encephalopathic changes. No epileptic activity CV: Essential hypertension Currently on amlodipine 10 mg daily, KAMILAH inhibitor which will be held due to acute kidney injury, hydralazine 25 every 8 hours, furosemide 40 mg daily and Spironolactone 25 mg daily. Goal keep systolic blood pressure less than 140 using nicardipine drip/ labetalol as needed. Resp: Tobaccoism Nasal cannula to maintain saturations greater than equal to 92% Incentive spirometry while awake Tobacco cessation self-education booklet will be provided GI: Hepatitis C genotype 1A viral load positive LA class B esophagitis Portal hypertension Abdominal ascites Elevated transaminases Hypoalbuminemia CT abdomen/pelvis 09/09 revealed abdominal ascites, esophageal/gastric varices. Splenomegaly. Shrunken liver. Small splenic hematoma EGD 09/12 revealed LA class B esophagitis, gastric erythema of the antrum gastric and duodenal bulb/second portion, portal hypertension/gastropathy. Patient is on pantoprazole 40 mg po daily/home medications pantoprazole Advance diet as tolerated Docusate sodium/senna 1 tablet twice daily for bowel regimen Outpatient evaluation for positive hepatitis C genotype 1A for treatment Recheck liver function tests as clinically indicated. Labile but stable : Hoff catheter if indicated for accurate I's and O's in a critically ill patient Endo: Sliding scale insulin if indicated to maintain euglycemia Renal: Acute kidney injury Avoid nephrotoxic medications. KAMILAH inhibitor has been held Monitor urine output Accurate I's and O Heme: Macrocytic anemia Thrombocytopenia Coagulopathic state secondary to underlying liver disease Patient has been on Mephyton 5 mg p.o. daily since 09/11. Received 10 mg IM 1 per hospitalist. Will receive 10 mg IV daily 2 days starting 09/19. 5 mg p.o. 1 today. Received 4 pack platelets since admission along with 4 FFP, 2 liquid plasma, 2 cryoprecipitate ID: Monitor for signs and symptomatology of infection. Rheum/MSK: Chronic low back pain ARTEMIO 1:320 nucleolar positive with positive double-stranded DNA Nonspecific ARTEMIO findings. Not at 1: 640 Possibly also secondary to underlying liver disease/hepatitis dsdna was positive. Will need outpatient rheumatology workup PT evaluate and treat FEN: Replace electrolytes as clinically indicated Access -Utilize peripheral IV. Central line if indicated Prophylax -GI -pantoprazole -DVT -SCD/holding pharmacological prophylaxis in light of acute subdural hematoma Level 2 follow-up Stable from critical care medicine standpoint. Assign care to hospitalist in a.m. 09/26 Coy Mahoney MD September 25, 2017 11:46
[2017-09-26] VITALS (13 sets, daily range): BP systolic 108–150; BP diastolic 23–88; PULSE 81–94; RESP 12–23; TEMP 97.8–98.9; O2SAT 97–100
[2017-09-26] MEDS: CHLORHEXIDINE GLUCONATE 2 % 1 PACK (2 CLOTHS) TOP SCH (03:59)
[2017-09-26] MEDS: hydrALAZINE HCL 25 MG TAB PO SCH ×3 (05:43→20:39)
[2017-09-26 06:20] LABS: AUTOMATED NEUTROPHIL # 5.2 TH/MM3 (1.8-7.7); BASOPHIL # 0.1 TH/MM3 (0-0.2); BASOPHIL % 0.6 % (0.0-2.0); EOSINOPHIL # 0.2 TH/MM3 (0-0.4); EOSINOPHIL % 2.1 % (0.0-4.0); HEMATOCRIT 26.7 % (39.0-51.0); HEMOGLOBIN 9.4 GM/DL (13.0-17.0); LYMPH % 18.8 % (9.0-44.0); LYMPHOCYTE # 1.6 TH/MM3 (1.0-4.8); MEAN CELL VOLUME 103.6 FL (80.0-100.0); MEAN CORPUSCULAR HEMOGLOBIN 36.5 PG (27.0-34.0); MEAN CORPUSCULAR HGB CONC 35.3 % (32.0-36.0); MEAN PLATELET VOLUME 8.6 FL (7.0-11.0); MONO % 15.4 % (0.0-8.0); MONOCYTE # 1.3 TH/MM3 (0-0.9); NEUT % 63.1 % (16.0-70.0); PLATELET COUNT 73 TH/MM3 (150-450); RED BLOOD COUNT 2.57 MIL/MM3 (4.50-5.90); RED CELL DISTRIBUTION WIDTH 16.5 % (11.6-17.2); WHITE BLOOD COUNT 8.3 TH/MM3 (4.0-11.0)
[2017-09-26 06:30] LABS: INTERNATIONAL NORMALIZED RATIO 1.8 RATIO; PROTHROMBIN TIME - PATIENT 18.1 SEC (9.8-11.6)
[2017-09-26 06:50] LABS: ALT (GPT) 26 U/L (12-78); PHOSPHORUS 3.4 MG/DL (2.5-4.9)
[2017-09-26 06:52] LABS: ALKALINE PHOSPHATASE 104 U/L (45-117); TOTAL BILIRUBIN ADULT 7.4 MG/DL (0.2-1.0)
[2017-09-26 06:56] LABS: ALBUMIN 2.3 GM/DL (3.4-5.0); AST (GOT) 46 U/L (15-37); BICARBONATE 19.6 MEQ/L (21.0-32.0); BLOOD UREA NITROGEN 20 MG/DL (7-18); CALCIUM 8.5 MG/DL (8.5-10.1); CHLORIDE 106 MEQ/L (98-107); CREATININE 1.26 MG/DL (0.60-1.30); GLOMERULAR FILTRATION RATE 58 ML/MIN (>89); GLUCOSE,RANDOM 91 MG/DL (74-106); MAGNESIUM 1.7 MG/DL (1.5-2.5); SODIUM (NA) 136 MEQ/L (136-145)
[2017-09-26] MEDS: LACTULOSE SYRUP 20 GM/30 ML CUP PO SCH (08:10)
--- NOTE | 2017-09-26 08:32 | HHI.NSPN ---
History Chief Complaint: Left hemiparesis, right SDH. Interval History This is a 62-year-old male admitted on 09/09 with history of falls and right flank/abdominal pain. Imaging at that time included CT abdomen/pelvis revealed portal gastropathy/varices, abdominal ascites, small splenic hematoma and induration to the left side of the abdominal wall. Patient was seen by GI for possible bleeding. EGD and's 09/12 revealed LA class B esophagitis, gastric erythema of the antrum. Duodenal bulb and second part of the duodenum. Portal hypertension with gastropathy. He was noted to have a left-sided weakness and a CT scan of the head obtained today reveals a large subacute and chronic right frontoparietal subdural hemorrhage measuring about 3 cm in thickness at about 6 mm right to left midline shift. He has a chronic coagulopathy with elevated PT/ INR due to his cirrhosis and liver failure along with thrombocytopenia. He also has anemia, hypokalemia, acute kidney injury, low albumin and elevated ARTEMIO. He is lethargic but easily arousable and oriented and follows simple command and protecting his airway well. 09/19/17: Pt awake, alert, flat affect. Denies headache. Complains of thirst. Left hemiparesis. Getting EEG this morning. 09/20/17: Pt awake and alert. Denies headache. Left hemiparesis with some improvement. No n/v. Pt states he would like to proceed with procedure. 09/23/17: Pt awake and alert. Complains of headache all over. Left hemiparesis with some improvement from admission. Speech is clear. Follows commands well. 09/24/17: Pt awakens to voice. Complains of mild headache and mild nausea. Follows commands well. 09/25/17: Pt awake and alert. Complains of mild headache all over. No n/v. Left hemiparesis. Subdural drain came out this morning. Exit site is clean Steri strip being applied by RN. 09/26/17: Pt awakens to voice. Incisional discomfort. No n/v. Left hemiparesis. No drainage from subdural exit site. Review of Systems General: Negative for: fever, chills, insomnia Respiratory: Negative for: shortness of breath, cough, sputum Cardiovascular: Negative for: chest pain Gastrointestinal: Negative for: nausea, vomitting, diarrhea, constipation Exam Results Vital Signs Date Time Temp Pulse Resp B/P (MAP) Pulse Ox O2 Delivery O2 Flow Rate FiO2 09/26/17 06:00 92 09/26/17 04:00 98.3 16 108/56 (73) 97 09/25/17 08:18 21 Intake and Output 09/26/17 09/26/17 09/27/17 08:00 16:00 00:00 Intake Total 360 ml Output Total 750 ml Balance -390 ml Physical Examination General: Pt awake and alert in NAD. Eyes: Pupils equal. Sclera with icterus. Resp: CTA bilaterally Heart: NSR no murmurs Abd: Soft positive bs Skin: Subdural drain exit site without signs of infection. Subdural drain exit site clean and dry not currently draining. Steri strip at exit site. Muscle: Moves all 4 extremities with left hemiparesis LUE more than LLE. LUE 3 /5. LLE 4/5. Neuro: Pt awake and alert. Pupils 3mm bilaterally reactive bilaterally. Follows commands well. Speech clear and appropriate. Lab, Micro, Other Results Last Impressions Head CT 09/23/17 0000 Signed Impressions: Service Date/Time: Saturday, September 23, 2017 09:47 - CONCLUSION: Interval placement of subdural drain Jairo Singh MD Abdomen/Pelvis CT 09/09/17 0833 Signed Impressions: Service Date/Time: Saturday, September 09, 2017 09:09 - CONCLUSION: Extensive ascites with cirrhosis or varicosities. Prominent spleen with possible tiny subcapsular hematoma series 2 image 30. Minimal induration anterior abdominal wall left side. Gilbert Lockett MD FACR Chest X-Ray 09/09/17 0713 Signed Impressions: Service Date/Time: Saturday, September 09, 2017 07:34 - CONCLUSION: 1. No acute abnormality seen. 2. Increased density in the right paratracheal region. Jairo Kelly MD Shoulder X-Ray 09/09/17 0000 Signed Impressions: Service Date/Time: Saturday, September 09, 2017 21:01 - CONCLUSION: 1. No acute bony abnormality. Vito Minor MD Lower Extremity Ultrasound 09/09/17 0000 Signed Impressions: Service Date/Time: Saturday, September 09, 2017 21:41 - CONCLUSION: Normal examination. Henok Young MD Elbow X-Ray 09/09/17 0000 Signed Impressions: Service Date/Time: Saturday, September 09, 2017 20:53 - CONCLUSION: 1. No acute bony abnormalities. Vito Minor MD Laboratory Tests Test 09/26/17 05:50 White Blood Count 8.3 TH/MM3 Red Blood Count 2.57 MIL/MM3 Hemoglobin 9.4 GM/DL Hematocrit 26.7 % Mean Corpuscular Volume 103.6 FL Mean Corpuscular Hemoglobin 36.5 PG Mean Corpuscular Hemoglobin Concent 35.3 % Red Cell Distribution Width 16.5 % Platelet Count 73 TH/MM3 Mean Platelet Volume 8.6 FL Neutrophils (%) (Auto) 63.1 % Lymphocytes (%) (Auto) 18.8 % Monocytes (%) (Auto) 15.4 % Eosinophils (%) (Auto) 2.1 % Basophils (%) (Auto) 0.6 % Neutrophils # (Auto) 5.2 TH/MM3 Lymphocytes # (Auto) 1.6 TH/MM3 Monocytes # (Auto) 1.3 TH/MM3 Eosinophils # (Auto) 0.2 TH/MM3 Basophils # (Auto) 0.1 TH/MM3 CBC Comment AUTO DIFF Differential Comment AUTO DIFF CONFIRMED Platelet Estimate LOW Platelet Morphology Comment NORMAL Prothrombin Time 18.1 SEC Prothromb Time International Ratio 1.8 RATIO Activated Partial Thromboplast Time 39.4 SEC Blood Urea Nitrogen 20 MG/DL Creatinine 1.26 MG/DL Random Glucose 91 MG/DL Total Protein 8.0 GM/DL Albumin 2.3 GM/DL Calcium Level 8.5 MG/DL Phosphorus Level 3.4 MG/DL Magnesium Level 1.7 MG/DL Alkaline Phosphatase 104 U/L Aspartate Amino Transf (AST/SGOT) 46 U/L Alanine Aminotransferase (ALT/SGPT) 26 U/L Total Bilirubin 7.4 MG/DL Sodium Level 136 MEQ/L Potassium Level 3.6 MEQ/L Chloride Level 106 MEQ/L Carbon Dioxide Level 19.6 MEQ/L Anion Gap 10 MEQ/L Estimat Glomerular Filtration Rate 58 ML/MIN Ammonia 49 MCMOL/L Medical Decision Making Impression and Plan A: 62-year-old gentleman with a large right frontoparietal subacute on chronic subdural hemorrhage with mass-effect and midline shift with associated left hemiparesis. Unfortunately he has advanced cirrhosis with coagulopathy and thrombocytopenia among other comorbidities. Pt electing to proceed with bedside right emelyn hole drainage of subdural hemorrhage evacuation. P: Continue with close monitoring in the surgical intensive care unit with neuro checks. Continue with DVT prophylaxis pt on SCDs. Continue with GI prophylaxis pt on Protonix. Continue with rehab efforts- PT/OT Berhane Orellana September 26, 2017 8:32 am
[2017-09-26] MEDS: ARTIFICIAL TEARS OPTH SOLN 15 ML BTL EACH EYE SCH ×3 (09:00→16:25)
[2017-09-26] MEDS: SODIUM CHLORIDE 0.9% FLUSH 10 ML FLUSH IV FLUSH SCH ×2 (09:00→20:39)
[2017-09-26] MEDS: MULTIVITAMIN TAB PO SCH (09:00)
[2017-09-26] MEDS: FUROSEMIDE 40 MG TAB PO SCH (09:56)
[2017-09-26] MEDS: SPIRONOLACTONE 25 MG TAB PO SCH (09:56)
[2017-09-26] MEDS: DOCUSATE SODIUM 50 MG/SENNA 8.6 MG TAB PO SCH ×3 (09:56→20:49)
[2017-09-26] MEDS: PANTOPRAZOLE SOD 40 MG DELAYED RELEASE TAB PO SCH (09:56)
[2017-09-26] MEDS: THIAMINE HCL 100 MG TAB PO SCH (09:56)
--- NOTE | 2017-09-26 10:20 | HHI.PR ---
Subjective Remarks Patient reports he is feeling okay. He reports slight and occasional headaches. Otherwise no new issues. Objective Vitals Vital Signs Date Time Temp Pulse Resp B/P (MAP) Pulse Ox O2 Delivery O2 Flow Rate FiO2 09/26/17 06:00 92 09/26/17 04:00 98.3 86 16 108/56 (73) 97 09/26/17 04:00 86 09/26/17 02:00 82 09/26/17 00:00 98.9 94 12 134/23 (60) 98 09/26/17 00:00 94 09/25/17 22:00 85 09/25/17 21:18 99 09/25/17 20:00 83 09/25/17 20:00 98.4 83 12 127/57 (80) 97 09/25/17 18:00 93 09/25/17 16:00 98.1 81 23 119/58 (78) 100 09/25/17 16:00 81 09/25/17 14:00 88 09/25/17 12:00 88 09/25/17 12:00 98.0 88 24 148/66 (93) 100 I/O 09/25/17 09/25/17 09/25/17 09/26/17 09/26/17 09/26/17 07:00 15:00 23:00 07:00 15:00 23:00 Intake Total 608 ml 720 ml 360 ml Output Total 1128 ml 500 ml 750 ml Balance -520 ml 220 ml -390 ml Intake Oral 480 ml 720 ml 360 ml IV Total 128 ml 0 ml Output Urine Total 1125 ml 500 ml 750 ml Drainage Total 3 ml # Voids 2 # Bowel Movements 0 2 0 Result Diagram: 09/26/17 0550 09/26/17 0550 Objective Remarks GENERAL: In no apparent distress. CARDIOVASCULAR: Normal rate and regular rhythm without murmurs, gallops, or rubs. RESPIRATORY: Good respiratory efforts. Breath sounds equal and clear to auscultation bilaterally. GASTROINTESTINAL: Abdomen soft, non-tender, non-distended. Normal active bowel sounds MUSCULOSKELETAL: Extremities without cyanosis, or edema. NEURO: Alert & Oriented x4 to person, place, time, situation. Moves all ext x4. Left side is 4+ out of 5 PSYCH: Appropriate mood and affect. Procedures None A/P Problem List: (1) Liver cirrhosis ICD Code: K74.60 - Unspecified cirrhosis of liver (2) Spleen hematoma ICD Code: S36.029A - Unspecified contusion of spleen, initial encounter Status: Acute (3) Hyperbilirubinemia ICD Code: E80.6 - Other disorders of bilirubin metabolism Status: Acute (4) Splenomegaly ICD Code: R16.1 - Splenomegaly, not elsewhere classified Status: Chronic (5) Ascites ICD Code: R18.8 - Other ascites Status: Chronic (6) Hypokalemia ICD Code: E87.6 - Hypokalemia Status: Resolved (7) Macrocytic anemia ICD Code: D53.9 - Nutritional anemia, unspecified Status: Chronic (8) HTN (hypertension) ICD Code: I10 - Essential (primary) hypertension Status: Chronic (9) Fall ICD Code: W19.XXXA - Unspecified fall, initial encounter Status: Acute (10) Left shoulder pain ICD Code: M25.512 - Pain in left shoulder (11) Edema of left lower extremity ICD Code: R60.0 - Localized edema (12) Hyperammonemia ICD Code: E72.20 - Disorder of urea cycle metabolism, unspecified (13) Coagulopathy ICD Code: D68.9 - Coagulation defect, unspecified Status: Acute (14) Diarrhea ICD Code: R19.7 - Diarrhea, unspecified Assessment and Plan 62-year-old male with: Acute/subacute/chronic right subdural hematoma -3.5 cm thickness with compression of the sulci/gyri with the right to left subfalcine shift 4.7 mm History of EtOH use Chronic low back pain Acute encephalopathy CT brain 09/18 revealed acute, subacute and chronic components to right subdural hematoma. 3.5 cm. Compression of the sulci and gyri. Right frontal right-to- left subfalcine shift approximately [address] brain 09/23 - interval placement of a right frontal subdural drain. There has been replacement of some of the frontal subdural fluid with air. Otherwise little change in the configuration with persistent grossly stable subfalcine shift in lateral ventricular compression with effacement of hemispheric cortical sulci. Consultation neurosurgery noted recheck head CT in a.m. 09/25 Status post right bur hole by Dr. Carranza. Drain have since been removed. Patient was placed on levetiracetam 500 mg IV twice daily 7 days 2% saline started at 30 cc an hour. Discontinue on 09/24 Blood pressure control keep systolic blood pressure less than 140 Multivitamin, thiamine and folate daily 3 days has been completed Seizure precautions Morphine sulfate 2-4 mg IV every 4 hours as needed pain Acetaminophen/Ofirmev1 g IV every 8 hours as needed for fever EEG with mild to moderate encephalopathic changes. No epileptic activity Essential hypertension Currently on amlodipine 10 mg daily, KAMILAH inhibitor which will be held due to acute kidney injury, hydralazine 25 every 8 hours, furosemide 40 mg daily and Spironolactone 25 mg daily. Tobaccoism Nasal cannula to maintain saturations greater than equal to 92% Incentive spirometry while awake Tobacco cessation self-education booklet will be provided Hepatitis C genotype 1A viral load positive LA class B esophagitis Portal hypertension Abdominal ascites Elevated transaminases Hypoalbuminemia CT abdomen/pelvis 09/09 revealed abdominal ascites, esophageal/gastric varices. Splenomegaly. Shrunken liver. Small splenic hematoma EGD 09/12 revealed LA class B esophagitis, gastric erythema of the antrum gastric and duodenal bulb/second portion, portal hypertension/gastropathy. Patient is on pantoprazole 40 mg po daily/home medications pantoprazole Advance diet as tolerated Docusate sodium/senna 1 tablet twice daily for bowel regimen Outpatient evaluation for positive hepatitis C genotype 1A for treatment Recheck liver function tests as clinically indicated. Labile but stable Acute kidney injury Avoid nephrotoxic medications. KAMILAH inhibitor has been held Monitor urine output Accurate I's and O Macrocytic anemia Thrombocytopenia Coagulopathic state secondary to underlying liver disease S/P Vitamin K Received 4 pack platelets since admission along with 4 FFP, 2 liquid plasma, 2 cryoprecipitate. Chronic low back pain ARTEMIO 1:320 nucleolar positive with positive double-stranded DNA Nonspecific ARTEMIO findings. Not at 1: 640 Possibly also secondary to underlying liver disease/hepatitis dsdna was positive. Will need outpatient rheumatology workup PT evaluate and treat Prophylax -GI -pantoprazole -DVT -SCD/holding pharmacological prophylaxis in light of acute subdural hematoma Discharge Planning DC planning to SNF in the next 24-48 hours. Okay to transfer to floor. Problem Qualifiers (1) Liver cirrhosis: (2) Spleen hematoma: Qualified Codes: S36.029A - Unspecified contusion of spleen, initial encounter (3) Ascites: Qualified Codes: R18.8 - Other ascites (4) HTN (hypertension): Qualified Codes: I10 - Essential (primary) hypertension (5) Fall: Qualified Codes: W19.XXXA - Unspecified fall, initial encounter (6) Left shoulder pain: Qualified Codes: M25.512 - Pain in left shoulder (7) Diarrhea: Qualified Codes: R19.7 - Diarrhea, unspecified Sergio Mathew MD September 26, 2017 10:20
[2017-09-26] MEDS ORDERED: ZOLPIDEM TARTRATE 5 MG TAB PO ONE (22:30)
[2017-09-27] VITALS (12 sets, daily range): BP systolic 127–145; BP diastolic 60–65; PULSE 86–101; RESP 12–24; TEMP 97.7–98.3; O2SAT 96–100
[2017-09-27] MEDS: CHLORHEXIDINE GLUCONATE 2 % 1 PACK (2 CLOTHS) TOP SCH (04:00)
[2017-09-27] MEDS: hydrALAZINE HCL 25 MG TAB PO SCH ×3 (05:06→20:12)
[2017-09-27 07:15] LABS: HEMATOCRIT 27.6 % (39.0-51.0); HEMOGLOBIN 9.6 GM/DL (13.0-17.0); MEAN CELL VOLUME 105.3 FL (80.0-100.0); MEAN CORPUSCULAR HEMOGLOBIN 36.6 PG (27.0-34.0); MEAN CORPUSCULAR HGB CONC 34.8 % (32.0-36.0); PLATELET COUNT 67 TH/MM3 (150-450); RED BLOOD COUNT 2.62 MIL/MM3 (4.50-5.90); RED CELL DISTRIBUTION WIDTH 16.5 % (11.6-17.2); WHITE BLOOD COUNT 7.6 TH/MM3 (4.0-11.0)
[2017-09-27 07:28] LABS: INTERNATIONAL NORMALIZED RATIO 1.8 RATIO; PROTHROMBIN TIME - PATIENT 17.9 SEC (9.8-11.6)
[2017-09-27 07:49] LABS: ALBUMIN 2.3 GM/DL (3.4-5.0); BICARBONATE 20.9 MEQ/L (21.0-32.0); CALCIUM 8.5 MG/DL (8.5-10.1); CREATININE 1.28 MG/DL (0.60-1.30)
[2017-09-27 07:53] LABS: DIRECT BILIRUBIN ADULT 3.8 MG/DL (0.0-0.2); INDIRECT BILIRUBIN 4.5 MG/DL (0.0-0.8); TOTAL BILIRUBIN ADULT 8.3 MG/DL (0.2-1.0); TOTAL PROTEIN 8.2 GM/DL (6.4-8.2)
[2017-09-27] MEDS: SODIUM CHLORIDE 0.9% FLUSH 10 ML FLUSH IV FLUSH SCH ×2 (08:00→20:13)
[2017-09-27] MEDS: ARTIFICIAL TEARS OPTH SOLN 15 ML BTL EACH EYE SCH ×3 (08:00→17:21)
[2017-09-27] MEDS: FUROSEMIDE 40 MG TAB PO SCH (08:01)
[2017-09-27] MEDS: LACTULOSE SYRUP 20 GM/30 ML CUP PO SCH (08:01)
[2017-09-27] MEDS: DOCUSATE SODIUM 50 MG/SENNA 8.6 MG TAB PO SCH ×2 (08:01→20:12)
[2017-09-27] MEDS: MULTIVITAMIN TAB PO SCH (08:01)
[2017-09-27] MEDS: SPIRONOLACTONE 25 MG TAB PO SCH (08:01)
[2017-09-27] MEDS: THIAMINE HCL 100 MG TAB PO SCH (08:01)
[2017-09-27] MEDS: PANTOPRAZOLE SOD 40 MG DELAYED RELEASE TAB PO SCH (08:01)
--- NOTE | 2017-09-27 09:06 | HHI.NSPN ---
History Chief Complaint: Left hemiparesis, right SDH. Interval History This is a 62-year-old male admitted on 09/09 with history of falls and right flank/abdominal pain. Imaging at that time included CT abdomen/pelvis revealed portal gastropathy/varices, abdominal ascites, small splenic hematoma and induration to the left side of the abdominal wall. Patient was seen by GI for possible bleeding. EGD and's 09/12 revealed LA class B esophagitis, gastric erythema of the antrum. Duodenal bulb and second part of the duodenum. Portal hypertension with gastropathy. He was noted to have a left-sided weakness and a CT scan of the head obtained today reveals a large subacute and chronic right frontoparietal subdural hemorrhage measuring about 3 cm in thickness at about 6 mm right to left midline shift. He has a chronic coagulopathy with elevated PT/ INR due to his cirrhosis and liver failure along with thrombocytopenia. He also has anemia, hypokalemia, acute kidney injury, low albumin and elevated ARTEMIO. He is lethargic but easily arousable and oriented and follows simple command and protecting his airway well. 09/19/17: Pt awake, alert, flat affect. Denies headache. Complains of thirst. Left hemiparesis. Getting EEG this morning. 09/20/17: Pt awake and alert. Denies headache. Left hemiparesis with some improvement. No n/v. Pt states he would like to proceed with procedure. 09/23/17: Pt awake and alert. Complains of headache all over. Left hemiparesis with some improvement from admission. Speech is clear. Follows commands well. 09/24/17: Pt awakens to voice. Complains of mild headache and mild nausea. Follows commands well. 09/25/17: Pt awake and alert. Complains of mild headache all over. No n/v. Left hemiparesis. Subdural drain came out this morning. Exit site is clean Steri strip being applied by RN. 09/26/17: Pt awakens to voice. Incisional discomfort. No n/v. Left hemiparesis. No drainage from subdural exit site. 09/27/17: Pt awakens to voice. States has headache and dizziness. Had nausea last night. Review of Systems General: Negative for: fever, chills, insomnia Respiratory: Negative for: shortness of breath, cough, sputum Cardiovascular: Negative for: chest pain Gastrointestinal: Negative for: nausea, vomitting, diarrhea, constipation Exam Results Vital Signs Date Time Temp Pulse Resp B/P (MAP) Pulse Ox O2 Delivery O2 Flow Rate FiO2 09/27/17 06:00 88 09/27/17 04:00 98.1 14 136/60 (85) 98 09/25/17 08:18 21 Intake and Output 09/27/17 09/27/17 09/28/17 08:00 16:00 00:00 Intake Total 480 ml Output Total 500 ml Balance -20 ml Physical Examination General: Pt awake and alert in NAD. Eyes: Pupils equal. Sclera with icterus. Resp: CTA bilaterally Heart: NSR no murmurs Abd: Soft positive bs Skin: Subdural drain exit site without signs of infection. Icteric skin. Muscle: Moves all 4 extremities with left hemiparesis LUE more than LLE. LUE 3 /5. LLE 4/5. Neuro: Pt awake and alert. Pupils 3mm bilaterally reactive bilaterally. Follows commands well. Speech clear and appropriate. Lab, Micro, Other Results Last Impressions Head CT 09/23/17 0000 Signed Impressions: Service Date/Time: Saturday, September 23, 2017 09:47 - CONCLUSION: Interval placement of subdural drain Jairo Singh MD Abdomen/Pelvis CT 09/09/17 0833 Signed Impressions: Service Date/Time: Saturday, September 09, 2017 09:09 - CONCLUSION: Extensive ascites with cirrhosis or varicosities. Prominent spleen with possible tiny subcapsular hematoma series 2 image 30. Minimal induration anterior abdominal wall left side. Gilbert Lockett MD FACR Chest X-Ray 09/09/17 0713 Signed Impressions: Service Date/Time: Saturday, September 09, 2017 07:34 - CONCLUSION: 1. No acute abnormality seen. 2. Increased density in the right paratracheal region. Jairo Kelly MD Shoulder X-Ray 09/09/17 0000 Signed Impressions: Service Date/Time: Saturday, September 09, 2017 21:01 - CONCLUSION: 1. No acute bony abnormality. Vito Minor MD Lower Extremity Ultrasound 09/09/17 0000 Signed Impressions: Service Date/Time: Saturday, September 09, 2017 21:41 - CONCLUSION: Normal examination. Henok Young MD Elbow X-Ray 09/09/17 0000 Signed Impressions: Service Date/Time: Saturday, September 09, 2017 20:53 - CONCLUSION: 1. No acute bony abnormalities. Vito Minor MD Laboratory Tests Test 09/27/17 06:21 White Blood Count 7.6 TH/MM3 Red Blood Count 2.62 MIL/MM3 Hemoglobin 9.6 GM/DL Hematocrit 27.6 % Mean Corpuscular Volume 105.3 FL Mean Corpuscular Hemoglobin 36.6 PG Mean Corpuscular Hemoglobin Concent 34.8 % Red Cell Distribution Width 16.5 % Platelet Count 67 TH/MM3 Mean Platelet Volume 9.0 FL Prothrombin Time 17.9 SEC Prothromb Time International Ratio 1.8 RATIO Blood Urea Nitrogen 21 MG/DL Creatinine 1.28 MG/DL Random Glucose 88 MG/DL Total Protein 8.2 GM/DL Albumin 2.3 GM/DL Calcium Level 8.5 MG/DL Alkaline Phosphatase 98 U/L Aspartate Amino Transf (AST/SGOT) 51 U/L Alanine Aminotransferase (ALT/SGPT) 25 U/L Total Bilirubin 8.3 MG/DL Direct Bilirubin 3.8 MG/DL Sodium Level 139 MEQ/L Potassium Level 3.8 MEQ/L Chloride Level 107 MEQ/L Carbon Dioxide Level 20.9 MEQ/L Anion Gap 11 MEQ/L Estimat Glomerular Filtration Rate 57 ML/MIN Indirect Bilirubin 4.5 MG/DL Medical Decision Making Impression and Plan A: 62-year-old gentleman with a large right frontoparietal subacute on chronic subdural hemorrhage with mass-effect and midline shift with associated left hemiparesis. Unfortunately he has advanced cirrhosis with coagulopathy and thrombocytopenia among other comorbidities. Pt electing to proceed with bedside right emelyn hole drainage of subdural hemorrhage evacuation. P: Continue with neuro checks. Continue with DVT prophylaxis pt on SCDs. Continue with GI prophylaxis pt on Protonix. Continue with rehab efforts- PT/OT Berhane Orellana September 27, 2017 9:06 am
[2017-09-27] MEDS: MORPHINE SULFATE 4 MG/ML INJ IV PUSH PRN (09:48)
--- NOTE | 2017-09-27 13:55 | HHI.DS ---
Discharge Summary Admission Date September 09, 2017 at 09:11 Discharge Date: September 27, 2017 Admitting Diagnosis Hyperbilirubinemia; Falls (1) Liver cirrhosis ICD Code: K74.60 - Unspecified cirrhosis of liver (2) Spleen hematoma ICD Code: S36.029A - Unspecified contusion of spleen, initial encounter Status: Acute (3) Hyperbilirubinemia ICD Code: E80.6 - Other disorders of bilirubin metabolism Status: Acute (4) Splenomegaly ICD Code: R16.1 - Splenomegaly, not elsewhere classified Status: Chronic (5) Ascites ICD Code: R18.8 - Other ascites Status: Chronic (6) Hypokalemia ICD Code: E87.6 - Hypokalemia Status: Resolved (7) Macrocytic anemia ICD Code: D53.9 - Nutritional anemia, unspecified Status: Chronic (8) HTN (hypertension) ICD Code: I10 - Essential (primary) hypertension Status: Chronic (9) Fall ICD Code: W19.XXXA - Unspecified fall, initial encounter Status: Acute (10) Left shoulder pain ICD Code: M25.512 - Pain in left shoulder (11) Edema of left lower extremity ICD Code: R60.0 - Localized edema (12) Hyperammonemia ICD Code: E72.20 - Disorder of urea cycle metabolism, unspecified (13) Coagulopathy ICD Code: D68.9 - Coagulation defect, unspecified Status: Acute (14) Diarrhea ICD Code: R19.7 - Diarrhea, unspecified Procedures None Brief History - From Admission HPI from the admitting physician This is a 62-year-old male with past medical history significant for chronic alcohol abuse who presents to [facility] after he slipped and fell. The patient states that he slipped over a towel and fell over his left side. Complained of chest pain on the left side of the rib cage. He was experiencing some left shoulder pain and headache. Denies any fevers chills. The patient however denies hitting his head or passing out. The patient otherwise denies any shortness of breath, fevers, chills, dysuria, diarrhea, nausea, vomiting. He notes when asked that his belly is somewhat distended. Patient was seen in emergency department where a chest x-ray was negative for acute abnormality. There was increased density in the right paratracheal region noted. CT of the abdomen and pelvis showed extensive ascites with cirrhosis or varicosities. Prominent spleen with possible tiny subcapsular hematoma. Minimal induration of the anterior abdominal wall on the left side. The patient was admitted due to his elevated bilirubin, ascites. CBC/BMP: 09/27/17 0621 09/27/17 0621 Significant Findings Laboratory Tests Test 09/25/17 05:49 09/26/17 05:50 09/27/17 06:21 Red Blood Count 2.61 MIL/MM3 (4.50-5.90) 2.57 MIL/MM3 (4.50-5.90) 2.62 MIL/MM3 (4.50-5.90) Hemoglobin 9.7 GM/DL (13.0-17.0) 9.4 GM/DL (13.0-17.0) 9.6 GM/DL (13.0-17.0) Hematocrit 27.2 % (39.0-51.0) 26.7 % (39.0-51.0) 27.6 % (39.0-51.0) Mean Corpuscular Volume 104.4 FL (80.0-100.0) 103.6 FL (80.0-100.0) 105.3 FL (80.0-100.0) Mean Corpuscular Hemoglobin 37.1 PG (27.0-34.0) 36.5 PG (27.0-34.0) 36.6 PG (27.0-34.0) Platelet Count 84 TH/MM3 (150-450) 73 TH/MM3 (150-450) 67 TH/MM3 (150-450) Prothrombin Time 18.3 SEC (9.8-11.6) 18.1 SEC (9.8-11.6) 17.9 SEC (9.8-11.6) Activated Partial Thromboplast Time 40.2 SEC (24.3-30.1) 39.4 SEC (24.3-30.1) Blood Urea Nitrogen 21 MG/DL (7-18) 20 MG/DL (7-18) 21 MG/DL (7-18) Creatinine 1.42 MG/DL (0.60-1.30) Estimat Glomerular Filtration Rate 50 ML/MIN (>89) 58 ML/MIN (>89) 57 ML/MIN (>89) Monocytes (%) (Auto) 15.4 % (0.0-8.0) Monocytes # (Auto) 1.3 TH/MM3 (0-0.9) Platelet Estimate LOW (NORMAL) Albumin 2.3 GM/DL (3.4-5.0) 2.3 GM/DL (3.4-5.0) Aspartate Amino Transf (AST/SGOT) 46 U/L (15-37) 51 U/L (15-37) Total Bilirubin 7.4 MG/DL (0.2-1.0) 8.3 MG/DL (0.2-1.0) Carbon Dioxide Level 19.6 MEQ/L (21.0-32.0) 20.9 MEQ/L (21.0-32.0) Ammonia 49 MCMOL/L (11-32) Direct Bilirubin 3.8 MG/DL (0.0-0.2) Indirect Bilirubin 4.5 MG/DL (0.0-0.8) Imaging Last Impressions Head CT 09/23/17 0000 Signed Impressions: Service Date/Time: Saturday, September 23, 2017 09:47 - CONCLUSION: Interval placement of subdural drain Jairo Singh MD Abdomen/Pelvis CT 09/09/17 0833 Signed Impressions: Service Date/Time: Saturday, September 09, 2017 09:09 - CONCLUSION: Extensive ascites with cirrhosis or varicosities. Prominent spleen with possible tiny subcapsular hematoma series 2 image 30. Minimal induration anterior abdominal wall left side. Gilbert Lockett MD FACR Chest X-Ray 09/09/17 0713 Signed Impressions: Service Date/Time: Saturday, September 09, 2017 07:34 - CONCLUSION: 1. No acute abnormality seen. 2. Increased density in the right paratracheal region. Jairo Kelly MD Shoulder X-Ray 09/09/17 0000 Signed Impressions: Service Date/Time: Saturday, September 09, 2017 21:01 - CONCLUSION: 1. No acute bony abnormality. Vito Minor MD Lower Extremity Ultrasound 09/09/17 0000 Signed Impressions: Service Date/Time: Saturday, September 09, 2017 21:41 - CONCLUSION: Normal examination. Henok Young MD Elbow X-Ray 09/09/17 0000 Signed Impressions: Service Date/Time: Saturday, September 09, 2017 20:53 - CONCLUSION: 1. No acute bony abnormalities. Vito Minor MD PE at Discharge GENERAL: In no apparent distress. CARDIOVASCULAR: Normal rate and regular rhythm without murmurs, gallops, or rubs. RESPIRATORY: Good respiratory efforts. Breath sounds equal and clear to auscultation bilaterally. GASTROINTESTINAL: Abdomen soft, non-tender, non-distended. Normal active bowel sounds MUSCULOSKELETAL: Extremities without cyanosis, or edema. NEURO: Alert & Oriented x4 to person, place, time, situation. Moves all ext x4. Left side is 4+ out of 5 PSYCH: Appropriate mood and affect. Pt update on day of discharge Patient reports he is feeling okay. He states his daughters are supposed to be coming in to visit. Hospital Course 62-year-old male admitted and treated for the following: Acute/subacute/chronic right subdural hematoma -3.5 cm thickness with compression of the sulci/gyri with the right to left subfalcine shift 4.7 mm History of EtOH use Chronic low back pain Acute encephalopathy CT brain 09/18 revealed acute, subacute and chronic components to right subdural hematoma. 3.5 cm. Compression of the sulci and gyri. Right frontal right-to- left subfalcine shift approximately [address] brain 09/23 - interval placement of a right frontal subdural drain. There has been replacement of some of the frontal subdural fluid with air. Otherwise little change in the configuration with persistent grossly stable subfalcine shift in lateral ventricular compression with effacement of hemispheric cortical sulci. Consultation neurosurgery noted recheck head CT in a.m. 09/25 Status post right bur hole by Dr. Carranza. Drain have since been removed. Patient was placed on levetiracetam 500 mg IV twice daily 7 days 2% saline started at 30 cc an hour. Discontinue on 09/24 Blood pressure control keep systolic blood pressure less than 140 Multivitamin, thiamine and folate daily 3 days has been completed Seizure precautions Pain medication as needed. EEG with mild to moderate encephalopathic changes. No epileptic activity Essential hypertension Currently on amlodipine 10 mg daily, KAMILAH inhibitor which will be held due to acute kidney injury, hydralazine 25 every 8 hours, furosemide 40 mg daily and Spironolactone 25 mg daily. Tobaccoism Nasal cannula to maintain saturations greater than equal to 92% Incentive spirometry while awake Tobacco cessation self-education booklet will be provided Hepatitis C genotype 1A viral load positive LA class B esophagitis Portal hypertension Abdominal ascites Elevated transaminases Hypoalbuminemia CT abdomen/pelvis 09/09 revealed abdominal ascites, esophageal/gastric varices. Splenomegaly. Shrunken liver. Small splenic hematoma EGD 09/12 revealed LA class B esophagitis, gastric erythema of the antrum gastric and duodenal bulb/second portion, portal hypertension/gastropathy. Patient is on pantoprazole 40 mg po daily/home medications pantoprazole Advance diet as tolerated Docusate sodium/senna 1 tablet twice daily for bowel regimen Outpatient evaluation for positive hepatitis C genotype 1A for treatment Recheck liver function tests as clinically indicated. Labile but stable Acute kidney injury Avoid nephrotoxic medications. KAMILAH inhibitor has been held Monitor urine output Accurate I's and O Macrocytic anemia Thrombocytopenia Coagulopathic state secondary to underlying liver disease S/P Vitamin K Received 4 pack platelets since admission along with 4 FFP, 2 liquid plasma, 2 cryoprecipitate. Chronic low back pain ARTEMIO 1:320 nucleolar positive with positive double-stranded DNA Nonspecific ARTEMIO findings. Not at 1: 640 Possibly also secondary to underlying liver disease/hepatitis dsdna was positive. Will need outpatient rheumatology workup PT evaluate and treat Pt Condition on Discharge: Good Discharge Disposition: Discharge to SNF Discharge Time: > 30 minutes Discharge Instructions DIET: Follow Instructions for: As Tolerated, No Restrictions Activities you can perform: Regular-No Restrictions Follow up Referrals: PCP Follow-up - 1 Week New Medications: Amlodipine (Norvasc) 5 Mg Tab 5 MG PO DAILY for Blood Pressure Management, #30 TAB Amlodipine (Norvasc) 10 Mg Tab 10 MG PO DAILY, #30 TAB Furosemide (Furosemide) 40 Mg Tab 40 MG PO DAILY for prevent fluid build up, #30 TAB Hydralazine HCl (Hydralazine HCl) 25 Mg Tablet 25 MG PO Q8HR, #90 TAB Lisinopril (Lisinopril) 20 Mg Tab 20 MG PO DAILY for Blood Pressure Management, #30 TAB Propranolol (Propranolol) 20 Mg Tab 40 MG PO Q8HR for Blood Pressure Management, #90 TAB Spironolactone (Aldactone) 25 Mg Tab 25 MG PO DAILY for prevent fluid, #30 TAB [Lactulose Liq] () 30 ML SYRP 30 ML PO QID for prevent encephalopathy, #30 Continued Medications: Acetaminophen (Tylenol) 325 Mg Tab 325 MG PO Q4H PRN for PAIN SCALE 1 TO 5, TAB 0 Refills Pantoprazole (Protonix) 40 Mg Tab 40 MG PO DAILY for Reflux, #30 TAB 0 Refills Sergio Mathew MD September 27, 2017 13:55
[2017-09-28] VITALS (8 sets, daily range): BP systolic 113–147; BP diastolic 55–67; PULSE 84–101; RESP 14–26; TEMP 98.1–98.4; O2SAT 95–99
[2017-09-28] MEDS: CHLORHEXIDINE GLUCONATE 2 % 1 PACK (2 CLOTHS) TOP SCH (04:00)
[2017-09-28] MEDS: hydrALAZINE HCL 25 MG TAB PO SCH ×3 (04:05→21:46)
[2017-09-28] MEDS: SODIUM CHLORIDE 0.9% FLUSH 10 ML FLUSH IV FLUSH SCH ×2 (08:28→21:48)
[2017-09-28] MEDS: PANTOPRAZOLE SOD 40 MG DELAYED RELEASE TAB PO SCH (08:28)
[2017-09-28] MEDS: DOCUSATE SODIUM 50 MG/SENNA 8.6 MG TAB PO SCH ×2 (08:28→21:48)
[2017-09-28] MEDS: SPIRONOLACTONE 25 MG TAB PO SCH (08:28)
[2017-09-28] MEDS: LACTULOSE SYRUP 20 GM/30 ML CUP PO SCH (08:28)
[2017-09-28] MEDS: THIAMINE HCL 100 MG TAB PO SCH (08:28)
[2017-09-28] MEDS: FUROSEMIDE 40 MG TAB PO SCH (08:28)
[2017-09-28] MEDS: MULTIVITAMIN TAB PO SCH (08:29)
[2017-09-28] MEDS: ARTIFICIAL TEARS OPTH SOLN 15 ML BTL EACH EYE SCH ×3 (08:29→18:00)
--- NOTE | 2017-09-28 10:31 | HHI.PR ---
Subjective Remarks No new issues. IVANA RN. Patient discharged but placement issue. CM aware. Objective Vitals Vital Signs Date Time Temp Pulse Resp B/P (MAP) Pulse Ox O2 Delivery O2 Flow Rate FiO2 09/28/17 08:00 100 09/28/17 08:00 98.1 100 21 114/58 (76) 99 09/28/17 06:00 84 09/28/17 04:00 98.2 84 14 147/67 (93) 95 09/28/17 04:00 84 09/28/17 02:00 98 09/28/17 00:00 98 09/28/17 00:00 98.4 98 14 142/61 (88) 98 09/27/17 22:00 96 09/27/17 20:00 96 09/27/17 20:00 97.8 96 16 145/65 (91) 100 09/27/17 19:49 97 09/27/17 16:00 96 09/27/17 16:00 97.7 96 15 132/63 (86) 97 09/27/17 14:00 90 09/27/17 12:00 92 09/27/17 12:00 98.3 92 24 131/62 (85) 99 I/O 09/27/17 09/27/17 09/27/17 09/28/17 09/28/17 09/28/17 07:00 15:00 23:00 07:00 15:00 23:00 Intake Total 480 ml 480 ml Output Total 500 ml 650 ml 550 ml Balance -20 ml -650 ml -70 ml Intake Oral 480 ml 480 ml Output Urine Total 500 ml 650 ml 550 ml # Bowel Movements 1 2 3 Result Diagram: 09/27/1762009/27/17 06 Objective Remarks GENERAL: In no apparent distress. CARDIOVASCULAR: Normal rate and regular rhythm without murmurs, gallops, or rubs. RESPIRATORY: Good respiratory efforts. Breath sounds equal and clear to auscultation bilaterally. GASTROINTESTINAL: Abdomen soft, non-tender, non-distended. Normal active bowel sounds MUSCULOSKELETAL: Extremities without cyanosis, or edema. NEURO: Alert & Oriented x4 to person, place, time, situation. Moves all ext x4. Left side is 4+ out of 5 PSYCH: Appropriate mood and affect. Procedures None A/P Problem List: (1) Liver cirrhosis ICD Code: K74.60 - Unspecified cirrhosis of liver (2) Spleen hematoma ICD Code: S36.029A - Unspecified contusion of spleen, initial encounter Status: Acute (3) Hyperbilirubinemia ICD Code: E80.6 - Other disorders of bilirubin metabolism Status: Acute (4) Splenomegaly ICD Code: R16.1 - Splenomegaly, not elsewhere classified Status: Chronic (5) Ascites ICD Code: R18.8 - Other ascites Status: Chronic (6) Hypokalemia ICD Code: E87.6 - Hypokalemia Status: Resolved (7) Macrocytic anemia ICD Code: D53.9 - Nutritional anemia, unspecified Status: Chronic (8) HTN (hypertension) ICD Code: I10 - Essential (primary) hypertension Status: Chronic (9) Fall ICD Code: W19.XXXA - Unspecified fall, initial encounter Status: Acute (10) Left shoulder pain ICD Code: M25.512 - Pain in left shoulder (11) Edema of left lower extremity ICD Code: R60.0 - Localized edema (12) Hyperammonemia ICD Code: E72.20 - Disorder of urea cycle metabolism, unspecified (13) Coagulopathy ICD Code: D68.9 - Coagulation defect, unspecified Status: Acute (14) Diarrhea ICD Code: R19.7 - Diarrhea, unspecified Assessment and Plan 62-year-old male with: Acute/subacute/chronic right subdural hematoma -3.5 cm thickness with compression of the sulci/gyri with the right to left subfalcine shift 4.7 mm History of EtOH use Chronic low back pain Acute encephalopathy CT brain 09/18 revealed acute, subacute and chronic components to right subdural hematoma. 3.5 cm. Compression of the sulci and gyri. Right frontal right-to- left subfalcine shift approximately [address] brain 09/23 - interval placement of a right frontal subdural drain. There has been replacement of some of the frontal subdural fluid with air. Otherwise little change in the configuration with persistent grossly stable subfalcine shift in lateral ventricular compression with effacement of hemispheric cortical sulci. Consultation neurosurgery noted recheck head CT in a.m. 09/25 Status post right bur hole by Dr. Carranza. Drain have since been removed. Patient was placed on levetiracetam 500 mg IV twice daily 7 days 2% saline started at 30 cc an hour. Discontinue on 5/22 Blood pressure control keep systolic blood pressure less than 140 Multivitamin, thiamine and folate daily 3 days has been completed Seizure precautions Pain medications as needed. EEG with mild to moderate encephalopathic changes. No epileptic activity Essential hypertension Currently on amlodipine 10 mg daily, KAMILAH inhibitor which will be held due to acute kidney injury, hydralazine 25 every 8 hours, furosemide 40 mg daily and Spironolactone 25 mg daily. Tobaccoism Nasal cannula to maintain saturations greater than equal to 92% Incentive spirometry while awake Tobacco cessation self-education booklet will be provided Hepatitis C genotype 1A viral load positive LA class B esophagitis Portal hypertension Abdominal ascites Elevated transaminases Hypoalbuminemia CT abdomen/pelvis 09/09 revealed abdominal ascites, esophageal/gastric varices. Splenomegaly. Shrunken liver. Small splenic hematoma EGD 09/12 revealed LA class B esophagitis, gastric erythema of the antrum gastric and duodenal bulb/second portion, portal hypertension/gastropathy. Patient is on pantoprazole 40 mg po daily/home medications pantoprazole Advance diet as tolerated Docusate sodium/senna 1 tablet twice daily for bowel regimen Outpatient evaluation for positive hepatitis C genotype 1A for treatment Recheck liver function tests as clinically indicated. Labile but stable Acute kidney injury Avoid nephrotoxic medications. KAMILAH inhibitor has been held Monitor urine output Accurate I's and O Macrocytic anemia Thrombocytopenia Coagulopathic state secondary to underlying liver disease S/P Vitamin K Received 4 pack platelets since admission along with 4 FFP, 2 liquid plasma, 2 cryoprecipitate. Chronic low back pain ARTEMIO 1:320 nucleolar positive with positive double-stranded DNA Nonspecific ARTEMIO findings. Not at 1: 640 Possibly also secondary to underlying liver disease/hepatitis dsdna was positive. Will need outpatient rheumatology workup PT evaluate and treat Prophylax -GI -pantoprazole -DVT -SCD/holding pharmacological prophylaxis in light of acute subdural hematoma Discharge Planning Discharged to SNF. Need placement. Problem Qualifiers (1) Liver cirrhosis: (2) Spleen hematoma: Qualified Codes: S36.029A - Unspecified contusion of spleen, initial encounter (3) Ascites: Qualified Codes: R18.8 - Other ascites (4) HTN (hypertension): Qualified Codes: I10 - Essential (primary) hypertension (5) Fall: Qualified Codes: W19.XXXA - Unspecified fall, initial encounter (6) Left shoulder pain: Qualified Codes: M25.512 - Pain in left shoulder (7) Diarrhea: Qualified Codes: R19.7 - Diarrhea, unspecified Sergio Mathew MD September 28, 2017 10:31
[2017-09-28] MEDS: ACETAMINOPHEN 500 MG CPLT PO PRN ×2 (11:58→21:48)
--- NOTE | 2017-09-28 19:06 | RADRPT ---
EXAM DATE: 09/28/2017 6:59 PM EDT AGE/SEX: 62 years / Male INDICATIONS: Chest pain. CLINICAL DATA: This is the patient's subsequent encounter. Patient reports that signs and symptoms h ave been present for 2 days and indicates a pain score of 4/10. MEDICAL/SURGICAL HISTORY: None. None. COMPARISON: [facility] – [place], CHEST SINGLE AP, 09/09/2017. . FINDINGS: Mild haziness is identified in the left lung base characteristic of early airspace disease. Lungs are hyperinflated. Right lung is clear. Heart and mediastinal structures are unremarkable. CONCLUSION: 1. Early airspace disease left lung base 2. Hyperinflated lungs suggesting mild COPD. Electronically signed by: Giacomo Wong MD 09/28/2017 7:04 PM EDT
[2017-09-28 20:17] LABS: AUTOMATED NEUTROPHIL # 5.3 TH/MM3 (1.8-7.7); BASOPHIL # 0.1 TH/MM3 (0-0.2); BASOPHIL % 0.8 % (0.0-2.0); EOSINOPHIL # 0.1 TH/MM3 (0-0.4); EOSINOPHIL % 1.4 % (0.0-4.0); HEMOGLOBIN 9.3 GM/DL (13.0-17.0); LYMPH % 16.6 % (9.0-44.0); LYMPHOCYTE # 1.3 TH/MM3 (1.0-4.8); MEAN CELL VOLUME 104.2 FL (80.0-100.0); MEAN CORPUSCULAR HEMOGLOBIN 35.9 PG (27.0-34.0); MEAN CORPUSCULAR HGB CONC 34.4 % (32.0-36.0); MEAN PLATELET VOLUME 8.8 FL (7.0-11.0); MONO % 15.3 % (0.0-8.0); MONOCYTE # 1.2 TH/MM3 (0-0.9); NEUT % 65.9 % (16.0-70.0); PLATELET COUNT 57 TH/MM3 (150-450); RED BLOOD COUNT 2.59 MIL/MM3 (4.50-5.90); RED CELL DISTRIBUTION WIDTH 15.8 % (11.6-17.2); WHITE BLOOD COUNT 8.1 TH/MM3 (4.0-11.0)
[2017-09-29 00:53] VITALS: BP 127/58; PULSE 97; RESP 18; TEMP 98.7; O2SAT 98
[2017-09-29] MEDS: CHLORHEXIDINE GLUCONATE 2 % 1 PACK (2 CLOTHS) TOP SCH (04:00)
[2017-09-29] MEDS: hydrALAZINE HCL 25 MG TAB PO SCH ×3 (05:14→21:35)
[2017-09-29 05:17] VITALS: BP 149/64; PULSE 105; RESP 18; TEMP 97.8; O2SAT 98
[2017-09-29 07:59] VITALS: BP 146/68; PULSE 63; RESP 16; TEMP 97.9; O2SAT 96
[2017-09-29] MEDS: PANTOPRAZOLE SOD 40 MG DELAYED RELEASE TAB PO SCH (08:24)
[2017-09-29] MEDS: THIAMINE HCL 100 MG TAB PO SCH (08:24)
[2017-09-29] MEDS: MULTIVITAMIN TAB PO SCH (08:24)
[2017-09-29] MEDS: SPIRONOLACTONE 25 MG TAB PO SCH (08:24)
[2017-09-29] MEDS: DOCUSATE SODIUM 50 MG/SENNA 8.6 MG TAB PO SCH ×2 (08:24→21:31)
[2017-09-29] MEDS: FUROSEMIDE 40 MG TAB PO SCH (08:24)
[2017-09-29] MEDS: LACTULOSE SYRUP 20 GM/30 ML CUP PO SCH (08:24)
[2017-09-29] MEDS: ARTIFICIAL TEARS OPTH SOLN 15 ML BTL EACH EYE SCH ×3 (08:27→18:00)
[2017-09-29] MEDS: SODIUM CHLORIDE 0.9% FLUSH 10 ML FLUSH IV FLUSH SCH ×2 (08:27→21:34)
[2017-09-29 12:16] VITALS: BP 134/62; PULSE 100; RESP 18; TEMP 99.7; O2SAT 98
--- NOTE | 2017-09-29 12:50 | EKG ---
Date Performed: 09/28/2017 Time Performed: 18:41:28 PTAGE: 62 years EKG: Sinus rhythm BORDERLINE ATRIAL ABNORMALITY NONSPECIFIC ST-T CHANGE ABNORMAL ECG Compared to PREVIOUS TRACING , ST-T changes anterolaterally are more prominent. PREVIOUS TRACIN11/2017 09.59 DOCTOR: Eleazar Palacio Interpretating Date/Time 09/29/2017 12:48:55
--- NOTE | 2017-09-29 13:35 | HHI.PR ---
Subjective Remarks Patient reports he is feeling well today. Had some chest discomfort yesterday, workup negative for ACS. Objective Vitals Vital Signs Date Time Temp Pulse Resp B/P (MAP) Pulse Ox O2 Delivery O2 Flow Rate FiO2 09/29/17 12:16 99.7 100 18 134/62 (86) 98 09/29/17 07:59 97.9 63 16 146/68 (94) 96 09/29/17 05:17 97.8 105 18 149/64 (92) 98 09/29/17 00:53 98.7 97 18 127/58 (81) 98 09/28/17 20:00 98.1 101 18 140/65 (90) 98 09/28/17 16:00 96 09/28/17 16:00 98.2 96 26 130/58 (82) 99 I/O 09/28/17 09/28/17 09/28/17 09/29/17 09/29/17 09/29/17 07:00 15:00 23:00 07:00 15:00 23:00 Intake Total 480 ml Output Total 550 ml 350 ml Balance -70 ml -350 ml Intake Oral 480 ml Output Urine Total 550 ml 350 ml # Voids 4 1 # Bowel Movements 3 5 Result Diagram: 09/28/17200509/27/17 0621 Objective Remarks GENERAL: In no apparent distress. SKIN: Some petechiae involving the right upper extremity CARDIOVASCULAR: Normal rate and regular rhythm without murmurs, gallops, or rubs. RESPIRATORY: Good respiratory efforts. Breath sounds equal and clear to auscultation bilaterally. GASTROINTESTINAL: Abdomen soft, non-tender, non-distended. Normal active bowel sounds MUSCULOSKELETAL: Extremities without cyanosis, or edema. NEURO: Alert & Oriented x4 to person, place, time, situation. Moves all ext x4. Left side is 4+ out of 5 PSYCH: Appropriate mood and affect. Procedures None A/P Problem List: (1) Liver cirrhosis ICD Code: K74.60 - Unspecified cirrhosis of liver (2) Spleen hematoma ICD Code: S36.029A - Unspecified contusion of spleen, initial encounter Status: Acute (3) Hyperbilirubinemia ICD Code: E80.6 - Other disorders of bilirubin metabolism Status: Acute (4) Splenomegaly ICD Code: R16.1 - Splenomegaly, not elsewhere classified Status: Chronic (5) Ascites ICD Code: R18.8 - Other ascites Status: Chronic (6) Hypokalemia ICD Code: E87.6 - Hypokalemia Status: Resolved (7) Macrocytic anemia ICD Code: D53.9 - Nutritional anemia, unspecified Status: Chronic (8) HTN (hypertension) ICD Code: I10 - Essential (primary) hypertension Status: Chronic (9) Fall ICD Code: W19.XXXA - Unspecified fall, initial encounter Status: Acute (10) Left shoulder pain ICD Code: M25.512 - Pain in left shoulder (11) Edema of left lower extremity ICD Code: R60.0 - Localized edema (12) Hyperammonemia ICD Code: E72.20 - Disorder of urea cycle metabolism, unspecified (13) Coagulopathy ICD Code: D68.9 - Coagulation defect, unspecified Status: Acute (14) Diarrhea ICD Code: R19.7 - Diarrhea, unspecified Assessment and Plan 62-year-old male with: Acute/subacute/chronic right subdural hematoma -3.5 cm thickness with compression of the sulci/gyri with the right to left subfalcine shift 4.7 mm History of EtOH use Chronic low back pain Acute encephalopathy CT brain 09/18 revealed acute, subacute and chronic components to right subdural hematoma. 3.5 cm. Compression of the sulci and gyri. Right frontal right-to- left subfalcine shift approximately [address] brain 09/23 - interval placement of a right frontal subdural drain. There has been replacement of some of the frontal subdural fluid with air. Otherwise little change in the configuration with persistent grossly stable subfalcine shift in lateral ventricular compression with effacement of hemispheric cortical sulci. Consultation neurosurgery noted recheck head CT in a.m. 09/25 Status post right bur hole by Dr. Carranza. Drain have since been removed. Patient was placed on levetiracetam 500 mg IV twice daily 7 days 2% saline started at 30 cc an hour. Discontinue on 09/24 Blood pressure control keep systolic blood pressure less than 140 Multivitamin, thiamine and folate daily 3 days has been completed Seizure precautions Pain medications as needed. EEG with mild to moderate encephalopathic changes. No epileptic activity Essential hypertension Currently on amlodipine 10 mg daily, KAMILAH inhibitor which will be held due to acute kidney injury, hydralazine 25 every 8 hours, furosemide 40 mg daily and Spironolactone 25 mg daily. Tobaccoism Nasal cannula to maintain saturations greater than equal to 92% Incentive spirometry while awake Tobacco cessation self-education booklet will be provided Hepatitis C genotype 1A viral load positive LA class B esophagitis Portal hypertension Abdominal ascites Elevated transaminases Hypoalbuminemia CT abdomen/pelvis 09/09 revealed abdominal ascites, esophageal/gastric varices. Splenomegaly. Shrunken liver. Small splenic hematoma EGD 09/12 revealed LA class B esophagitis, gastric erythema of the antrum gastric and duodenal bulb/second portion, portal hypertension/gastropathy. Patient is on pantoprazole 40 mg po daily/home medications pantoprazole Advance diet as tolerated Docusate sodium/senna 1 tablet twice daily for bowel regimen Outpatient evaluation for positive hepatitis C genotype 1A for treatment Recheck liver function tests as clinically indicated. Stable Will need outpatient follow up with GI Acute kidney injury Avoid nephrotoxic medications. KAMILAH inhibitor has been held Monitor urine output Accurate I's and O Macrocytic anemia Thrombocytopenia Coagulopathic state secondary to underlying liver disease S/P Vitamin K Received 4 pack platelets since admission along with 4 FFP, 2 liquid plasma, 2 cryoprecipitate. Chronic low back pain ARTEMIO 1:320 nucleolar positive with positive double-stranded DNA Nonspecific ARTEMIO findings. Not at 1: 640 Possibly also secondary to underlying liver disease/hepatitis dsdna was positive. Will need outpatient rheumatology workup PT evaluate and treat Prophylax -GI -pantoprazole -DVT -SCD/holding pharmacological prophylaxis in light of acute subdural hematoma Discharge Planning Discharged to SNF once arrangements are made Problem Qualifiers (1) Liver cirrhosis: (2) Spleen hematoma: Qualified Codes: S36.029A - Unspecified contusion of spleen, initial encounter (3) Ascites: Qualified Codes: R18.8 - Other ascites (4) HTN (hypertension): Qualified Codes: I10 - Essential (primary) hypertension (5) Fall: Qualified Codes: W19.XXXA - Unspecified fall, initial encounter (6) Left shoulder pain: Qualified Codes: M25.512 - Pain in left shoulder (7) Diarrhea: Qualified Codes: R19.7 - Diarrhea, unspecified Sergio Mathew MD September 29, 2017 13:35
[2017-09-29] MEDS: ACETAMINOPHEN 500 MG CPLT PO PRN ×2 (14:58→21:34)
[2017-09-29 15:19] LABS: AUTOMATED NEUTROPHIL # 12.7 TH/MM3 (1.8-7.7); BASOPHIL % 0.3 % (0.0-2.0); HEMATOCRIT 29.4 % (39.0-51.0); HEMOGLOBIN 10.1 GM/DL (13.0-17.0); LYMPH % 8.3 % (9.0-44.0); LYMPHOCYTE # 1.3 TH/MM3 (1.0-4.8); MEAN CELL VOLUME 104.8 FL (80.0-100.0); MEAN CORPUSCULAR HGB CONC 34.4 % (32.0-36.0); MEAN PLATELET VOLUME 9.2 FL (7.0-11.0); MONO % 9.2 % (0.0-8.0); MONOCYTE # 1.4 TH/MM3 (0-0.9); NEUT % 82.2 % (16.0-70.0); PLATELET COUNT 66 TH/MM3 (150-450); RED BLOOD COUNT 2.81 MIL/MM3 (4.50-5.90); RED CELL DISTRIBUTION WIDTH 15.9 % (11.6-17.2); WHITE BLOOD COUNT 15.5 TH/MM3 (4.0-11.0)
[2017-09-29 16:05] LABS: ALBUMIN 2.3 GM/DL (3.4-5.0); AST (GOT) 53 U/L (15-37); BICARBONATE 19.8 MEQ/L (21.0-32.0); BLOOD UREA NITROGEN 14 MG/DL (7-18); CALCIUM 8.3 MG/DL (8.5-10.1); CHLORIDE 101 MEQ/L (98-107); GLOMERULAR FILTRATION RATE 51 ML/MIN (>89); GLUCOSE,RANDOM 116 MG/DL (74-106); SODIUM (NA) 131 MEQ/L (136-145)
[2017-09-29 16:10] LABS: ALKALINE PHOSPHATASE 106 U/L (45-117); ALT (GPT) 30 U/L (12-78); TOTAL BILIRUBIN ADULT 7.7 MG/DL (0.2-1.0); TOTAL PROTEIN 8.6 GM/DL (6.4-8.2)
[2017-09-29 16:15] VITALS: BP 156/67; PULSE 81; RESP 18; TEMP 98.8; O2SAT 97
[2017-09-29 21:04] VITALS: BP 115/56; PULSE 90; RESP 18; TEMP 98.9; O2SAT 97
[2017-09-29] MEDS ORDERED: MELATONIN 5 MG TAB PO ONE (22:00)
[2017-09-30 01:12] VITALS: BP 131/57; PULSE 97; RESP 18; TEMP 99.3; O2SAT 95
[2017-09-30] MEDS: ACETAMINOPHEN 500 MG CPLT PO PRN ×3 (03:29→21:24)
[2017-09-30] MEDS: CHLORHEXIDINE GLUCONATE 2 % 1 PACK (2 CLOTHS) TOP SCH (04:00)
[2017-09-30 04:21] VITALS: BP 133/60; PULSE 89; RESP 18; TEMP 98.6; O2SAT 98
[2017-09-30] MEDS: hydrALAZINE HCL 25 MG TAB PO SCH ×3 (06:30→21:24)
[2017-09-30 08:35] VITALS: BP 129/60; PULSE 93; RESP 18; TEMP 98.6; O2SAT 97
[2017-09-30] MEDS: THIAMINE HCL 100 MG TAB PO SCH (09:00)
[2017-09-30] MEDS: ARTIFICIAL TEARS OPTH SOLN 15 ML BTL EACH EYE SCH ×3 (09:00→21:23)
[2017-09-30] MEDS: FUROSEMIDE 40 MG TAB PO SCH (10:11)
[2017-09-30] MEDS: MULTIVITAMIN TAB PO SCH (10:11)
[2017-09-30] MEDS: PANTOPRAZOLE SOD 40 MG DELAYED RELEASE TAB PO SCH (10:11)
[2017-09-30] MEDS: DOCUSATE SODIUM 50 MG/SENNA 8.6 MG TAB PO SCH ×2 (10:11→21:24)
[2017-09-30] MEDS: LACTULOSE SYRUP 20 GM/30 ML CUP PO SCH (10:12)
[2017-09-30] MEDS: SPIRONOLACTONE 25 MG TAB PO SCH (10:16)
[2017-09-30] MEDS: SODIUM CHLORIDE 0.9% FLUSH 10 ML FLUSH IV FLUSH SCH ×2 (10:17→21:23)
--- NOTE | 2017-09-30 11:44 | HHI.PR ---
Subjective Remarks Patient reports he is feeling okay today. Slept better last night. Objective Vitals Vital Signs Date Time Temp Pulse Resp B/P (MAP) Pulse Ox O2 Delivery O2 Flow Rate FiO2 09/30/17 08:35 98.6 93 18 129/60 (83) 97 09/30/17 04:21 98.6 89 18 133/60 (84) 98 09/30/17 01:12 99.3 97 18 131/57 (81) 95 09/29/17 21:04 98.9 90 18 115/56 (75) 97 09/29/17 16:15 98.8 81 18 156/67 (96) 97 09/29/17 12:16 99.7 100 18 134/62 (86) 98 I/O 09/29/17 09/29/17 09/29/17 09/30/17 09/30/17 09/30/17 07:00 15:00 23:00 07:00 15:00 23:00 # Voids 1 1 # Bowel Movements 1 4 1 Result Diagram: 09/29/17 1434 09/29/17 1434 Objective Remarks GENERAL: In no apparent distress. SKIN: Some petechiae involving the right upper extremity CARDIOVASCULAR: Normal rate and regular rhythm without murmurs, gallops, or rubs. RESPIRATORY: Good respiratory efforts. Breath sounds equal and clear to auscultation bilaterally. GASTROINTESTINAL: Abdomen soft, non-tender, non-distended. Normal active bowel sounds MUSCULOSKELETAL: Extremities without cyanosis, or edema. NEURO: Alert & Oriented x4 to person, place, time, situation. Moves all ext x4. Left side is 4+ out of 5 PSYCH: Appropriate mood and affect. Procedures None A/P Problem List: (1) Liver cirrhosis ICD Code: K74.60 - Unspecified cirrhosis of liver (2) Spleen hematoma ICD Code: S36.029A - Unspecified contusion of spleen, initial encounter Status: Acute (3) Hyperbilirubinemia ICD Code: E80.6 - Other disorders of bilirubin metabolism Status: Acute (4) Splenomegaly ICD Code: R16.1 - Splenomegaly, not elsewhere classified Status: Chronic (5) Ascites ICD Code: R18.8 - Other ascites Status: Chronic (6) Hypokalemia ICD Code: E87.6 - Hypokalemia Status: Resolved (7) Macrocytic anemia ICD Code: D53.9 - Nutritional anemia, unspecified Status: Chronic (8) HTN (hypertension) ICD Code: I10 - Essential (primary) hypertension Status: Chronic (9) Fall ICD Code: W19.XXXA - Unspecified fall, initial encounter Status: Acute (10) Left shoulder pain ICD Code: M25.512 - Pain in left shoulder (11) Edema of left lower extremity ICD Code: R60.0 - Localized edema (12) Hyperammonemia ICD Code: E72.20 - Disorder of urea cycle metabolism, unspecified (13) Coagulopathy ICD Code: D68.9 - Coagulation defect, unspecified Status: Acute (14) Diarrhea ICD Code: R19.7 - Diarrhea, unspecified Assessment and Plan 62-year-old male with 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 3.5 cm. Compression of the sulci and gyri. Right frontal right-to- left subfalcine shift approximately [address] brain 09/23 - interval placement of a right frontal subdural drain. There has been replacement of some of the frontal subdural fluid with air. Otherwise little change in the configuration with persistent grossly stable subfalcine shift in lateral ventricular compression with effacement of hemispheric cortical sulci. Consultation neurosurgery noted recheck head CT in a.m. 09/25 Status post right bur hole by Dr. Carranza. Drain have since been removed. Patient was placed on levetiracetam 500 mg IV twice daily 7 days 2% saline started at 30 cc an hour. Discontinue on 09/24 Blood pressure control keep systolic blood pressure less than 140 Multivitamin, thiamine and folate daily 3 days has been completed Seizure precautions Pain medications as needed. EEG with mild to moderate encephalopathic changes. No epileptic activity Hepatitis C genotype 1A viral load positive LA class B esophagitis Portal hypertension Abdominal ascites Elevated transaminases Hypoalbuminemia CT abdomen/pelvis 09/09 revealed abdominal ascites, esophageal/gastric varices. Splenomegaly. Shrunken liver. Small splenic hematoma EGD 09/12 revealed LA class B esophagitis, gastric erythema of the antrum gastric and duodenal bulb/second portion, portal hypertension/gastropathy. Patient is on pantoprazole 40 mg po daily/home medications pantoprazole Advance diet as tolerated Docusate sodium/senna 1 tablet twice daily for bowel regimen Outpatient evaluation for positive hepatitis C genotype 1A for treatment Recheck liver function tests as clinically indicated. Stable Will need outpatient follow up with GI Essential hypertension Currently on amlodipine 10 mg daily, KAMILAH inhibitor which will be held due to acute kidney injury, hydralazine 25 every 8 hours, furosemide 40 mg daily and Spironolactone 25 mg daily. Tobaccoism Nasal cannula to maintain saturations greater than equal to 92% Incentive spirometry while awake Tobacco cessation self-education booklet will be provided Acute kidney injury Avoid nephrotoxic medications. KAMILAH inhibitor has been held Monitor urine output Accurate I's and O Macrocytic anemia Thrombocytopenia Coagulopathic state secondary to underlying liver disease S/P Vitamin K Received 4 pack platelets since admission along with 4 FFP, 2 liquid plasma, 2 cryoprecipitate. Chronic low back pain ARTEMIO 1:320 nucleolar positive with positive double-stranded DNA Nonspecific ARTEMIO findings. Not at 1: 640 Possibly also secondary to underlying liver disease/hepatitis dsdna was positive. Will need outpatient rheumatology workup PT evaluate and treat Prophylax -GI -pantoprazole -DVT -SCD/holding pharmacological prophylaxis in light of acute subdural hematoma Discharge Planning Discharged to SNF once arrangements are made Problem Qualifiers (1) Liver cirrhosis: (2) Spleen hematoma: Qualified Codes: S36.029A - Unspecified contusion of spleen, initial encounter (3) Ascites: Qualified Codes: R18.8 - Other ascites (4) HTN (hypertension): Qualified Codes: I10 - Essential (primary) hypertension (5) Fall: Qualified Codes: W19.XXXA - Unspecified fall, initial encounter (6) Left shoulder pain: Qualified Codes: M25.512 - Pain in left shoulder (7) Diarrhea: Qualified Codes: R19.7 - Diarrhea, unspecified Sergio Mathew MD September 30, 2017 11:44
[2017-09-30 12:35] VITALS: BP 122/60; PULSE 91; RESP 18; TEMP 98.6; O2SAT 98
[2017-09-30 16:19] VITALS: BP 114/57; PULSE 90; RESP 18; TEMP 98.1; O2SAT 96
[2017-09-30 20:00] VITALS: BP 112/59; PULSE 93; RESP 18; TEMP 98.6; O2SAT 98
[2017-09-30] MEDS: MELATONIN 5 MG TAB PO PRN (21:23)
[2017-10-01] VITALS: BP 129/60; PULSE 99; RESP 18; TEMP 98.1; O2SAT 97
[2017-10-01 04:00] VITALS: BP 125/60; PULSE 91; RESP 18; TEMP 97.8; O2SAT 95
[2017-10-01] MEDS: CHLORHEXIDINE GLUCONATE 2 % 1 PACK (2 CLOTHS) TOP SCH (04:00)
[2017-10-01] MEDS: hydrALAZINE HCL 25 MG TAB PO SCH ×3 (06:08→21:03)
[2017-10-01] MEDS: ACETAMINOPHEN 500 MG CPLT PO PRN ×2 (06:09→10:07)
[2017-10-01] MEDS: SODIUM CHLORIDE 0.9% FLUSH 10 ML FLUSH IV FLUSH SCH ×2 (08:55→21:03)
[2017-10-01] MEDS: DOCUSATE SODIUM 50 MG/SENNA 8.6 MG TAB PO SCH ×2 (08:56→21:03)
[2017-10-01] MEDS: SPIRONOLACTONE 25 MG TAB PO SCH (08:56)
[2017-10-01] MEDS: PANTOPRAZOLE SOD 40 MG DELAYED RELEASE TAB PO SCH (08:56)
[2017-10-01] MEDS: FUROSEMIDE 40 MG TAB PO SCH (08:56)
[2017-10-01] MEDS: MULTIVITAMIN TAB PO SCH (08:57)
[2017-10-01] MEDS: THIAMINE HCL 100 MG TAB PO SCH (08:57)
[2017-10-01] MEDS: LACTULOSE SYRUP 20 GM/30 ML CUP PO SCH ×3 (08:58→18:16)
[2017-10-01 09:33] VITALS: BP 118/58; PULSE 90; RESP 20; TEMP 98.2; O2SAT 98
[2017-10-01] MEDS: ARTIFICIAL TEARS OPTH SOLN 15 ML BTL EACH EYE SCH ×3 (10:06→18:16)
[2017-10-01 11:17] VITALS: BP 125/60; PULSE 93; RESP 20; TEMP 98.1; O2SAT 97
--- NOTE | 2017-10-01 11:17 | HHI.PR ---
Subjective Remarks Patient reports that he is becoming more bloated. States he has not had enough bowel movements. No nausea or vomiting. Objective Vitals Vital Signs Date Time Temp Pulse Resp B/P (MAP) Pulse Ox O2 Delivery O2 Flow Rate FiO2 10/01/17 09:33 98.2 90 20 118/58 (78) 98 10/01/17 04:00 97.8 91 18 125/60 (81) 95 10/01/17 00:00 98.1 99 18 129/60 (83) 97 09/30/17 20:00 98.6 93 18 112/59 (76) 98 09/30/17 16:19 98.1 90 18 114/57 (76) 96 09/30/17 12:35 98.6 91 18 122/60 (80) 98 I/O 09/30/17 09/30/17 09/30/17 10/01/17 10/01/17 10/01/17 07:00 15:00 23:00 07:00 15:00 23:00 # Voids 1 4 # Bowel Movements 1 1 Result Diagram: 09/29/17 1434 09/29/17 1434 Objective Remarks GENERAL: In no apparent distress. SKIN: Some petechiae involving the right upper extremity CARDIOVASCULAR: Normal rate and regular rhythm without murmurs, gallops, or rubs. RESPIRATORY: Good respiratory efforts. Breath sounds equal and clear to auscultation bilaterally. GASTROINTESTINAL: Abdomen soft, mild diffuse tenderness to palpation. Normal active bowel sounds MUSCULOSKELETAL: Extremities without cyanosis, or edema. NEURO: Alert & Oriented x4 to person, place, time, situation. Moves all ext x4. Left side is 4+ out of 5 PSYCH: Appropriate mood and affect. Procedures None A/P Problem List: (1) Liver cirrhosis ICD Code: K74.60 - Unspecified cirrhosis of liver (2) Spleen hematoma ICD Code: S36.029A - Unspecified contusion of spleen, initial encounter Status: Acute (3) Hyperbilirubinemia ICD Code: E80.6 - Other disorders of bilirubin metabolism Status: Acute (4) Splenomegaly ICD Code: R16.1 - Splenomegaly, not elsewhere classified Status: Chronic (5) Ascites ICD Code: R18.8 - Other ascites Status: Chronic (6) Hypokalemia ICD Code: E87.6 - Hypokalemia Status: Resolved (7) Macrocytic anemia ICD Code: D53.9 - Nutritional anemia, unspecified Status: Chronic (8) HTN (hypertension) ICD Code: I10 - Essential (primary) hypertension Status: Chronic (9) Fall ICD Code: W19.XXXA - Unspecified fall, initial encounter Status: Acute (10) Left shoulder pain ICD Code: M25.512 - Pain in left shoulder (11) Edema of left lower extremity ICD Code: R60.0 - Localized edema (12) Hyperammonemia ICD Code: E72.20 - Disorder of urea cycle metabolism, unspecified (13) Coagulopathy ICD Code: D68.9 - Coagulation defect, unspecified Status: Acute (14) Diarrhea ICD Code: R19.7 - Diarrhea, unspecified Assessment and Plan 62-year-old male with 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 3.5 cm. Compression of the sulci and gyri. Right frontal right-to- left subfalcine shift approximately [address] brain 09/23 - interval placement of a right frontal subdural drain. There has been replacement of some of the frontal subdural fluid with air. Otherwise little change in the configuration with persistent grossly stable subfalcine shift in lateral ventricular compression with effacement of hemispheric cortical sulci. Consultation neurosurgery noted recheck head CT in a.m. 09/25 Status post right bur hole by Dr. Carranza. Drain have since been removed. Patient was placed on levetiracetam 500 mg IV twice daily 7 days 2% saline started at 30 cc an hour. Discontinue on 09/24 Blood pressure control keep systolic blood pressure less than 140 Multivitamin, thiamine and folate daily 3 days has been completed Seizure precautions Pain medications as needed. EEG with mild to moderate encephalopathic changes. No epileptic activity Hepatitis C genotype 1A viral load positive LA class B esophagitis Portal hypertension Abdominal ascites Elevated transaminases Hypoalbuminemia CT abdomen/pelvis 09/09 revealed abdominal ascites, esophageal/gastric varices. Splenomegaly. Shrunken liver. Small splenic hematoma EGD 09/12 revealed LA class B esophagitis, gastric erythema of the antrum gastric and duodenal bulb/second portion, portal hypertension/gastropathy. Patient is on pantoprazole 40 mg po daily/home medications pantoprazole Advance diet as tolerated Outpatient evaluation for positive hepatitis C genotype 1A for treatment Recheck liver function tests as clinically indicated. Stable Will need outpatient follow up with GI Increase lactulose to 3 times daily Essential hypertension Currently on amlodipine 10 mg daily, KAMILAH inhibitor which will be held due to acute kidney injury, hydralazine 25 every 8 hours, furosemide 40 mg daily and Spironolactone 25 mg daily. Tobaccoism Nasal cannula to maintain saturations greater than equal to 92% Incentive spirometry while awake Tobacco cessation self-education booklet will be provided Acute kidney injury Avoid nephrotoxic medications. KAMILAH inhibitor has been held Monitor urine output Accurate I's and O Macrocytic anemia Thrombocytopenia Coagulopathic state secondary to underlying liver disease S/P Vitamin K Received 4 pack platelets since admission along with 4 FFP, 2 liquid plasma, 2 cryoprecipitate. Chronic low back pain ARTEMIO 1:320 nucleolar positive with positive double-stranded DNA Nonspecific ARTEMIO findings. Not at 1: 640 Possibly also secondary to underlying liver disease/hepatitis dsdna was positive. Will need outpatient rheumatology workup PT evaluate and treat Prophylax -GI -pantoprazole -DVT -SCD/holding pharmacological prophylaxis in light of acute subdural hematoma Discharge Planning Discharged to SNF once arrangements are made Problem Qualifiers (1) Liver cirrhosis: (2) Spleen hematoma: Qualified Codes: S36.029A - Unspecified contusion of spleen, initial encounter (3) Ascites: Qualified Codes: R18.8 - Other ascites (4) HTN (hypertension): Qualified Codes: I10 - Essential (primary) hypertension (5) Fall: Qualified Codes: W19.XXXA - Unspecified fall, initial encounter (6) Left shoulder pain: Qualified Codes: M25.512 - Pain in left shoulder (7) Diarrhea: Qualified Codes: R19.7 - Diarrhea, unspecified Sergio Mathew MD October 01, 2017 11:17
[2017-10-01 16:40] VITALS: BP 108/54; PULSE 90; RESP 20; TEMP 97.7; O2SAT 98
[2017-10-01 20:00] VITALS: BP 118/63; PULSE 87; RESP 18; TEMP 98.7; O2SAT 98
[2017-10-01] MEDS: MELATONIN 5 MG TAB PO PRN (21:03)
[2017-10-02] VITALS: BP 115/60; PULSE 82; RESP 18; TEMP 98.2; O2SAT 98
[2017-10-02 04:00] VITALS: BP 122/60; PULSE 86; RESP 18; TEMP 98; O2SAT 96
[2017-10-02] MEDS: CHLORHEXIDINE GLUCONATE 2 % 1 PACK (2 CLOTHS) TOP SCH (04:00)
[2017-10-02] MEDS: hydrALAZINE HCL 25 MG TAB PO SCH ×3 (06:05→21:45)
[2017-10-02 08:00] VITALS: BP 114/56; PULSE 88; RESP 18; TEMP 98.4; O2SAT 96
[2017-10-02] MEDS: SODIUM CHLORIDE 0.9% FLUSH 10 ML FLUSH IV FLUSH SCH ×2 (08:02→21:45)
[2017-10-02] MEDS: LACTULOSE SYRUP 20 GM/30 ML CUP PO SCH ×3 (08:02→17:29)
[2017-10-02] MEDS: FUROSEMIDE 40 MG TAB PO SCH (08:02)
[2017-10-02] MEDS: THIAMINE HCL 100 MG TAB PO SCH (08:02)
[2017-10-02] MEDS: MULTIVITAMIN TAB PO SCH (08:02)
[2017-10-02] MEDS: DOCUSATE SODIUM 50 MG/SENNA 8.6 MG TAB PO SCH ×2 (08:02→21:45)
[2017-10-02] MEDS: PANTOPRAZOLE SOD 40 MG DELAYED RELEASE TAB PO SCH (08:02)
[2017-10-02] MEDS: ARTIFICIAL TEARS OPTH SOLN 15 ML BTL EACH EYE SCH ×3 (08:06→17:29)
[2017-10-02] MEDS: SPIRONOLACTONE 25 MG TAB PO SCH (08:10)
[2017-10-02 11:15] VITALS: BP 124/59; PULSE 68; RESP 16; TEMP 98.1; O2SAT 98
[2017-10-02 16:00] VITALS: BP 123/57; PULSE 89; RESP 18; TEMP 98.1; O2SAT 98
--- NOTE | 2017-10-02 16:13 | HHI.PR ---
Subjective Remarks Patient reports he is feeling okay. Requesting Ensure. Objective Vitals Vital Signs Date Time Temp Pulse Resp B/P (MAP) Pulse Ox O2 Delivery O2 Flow Rate FiO2 10/02/17 11:15 98.1 68 16 124/59 (80) 98 10/02/17 08:00 98.4 88 18 114/56 (75) 96 10/02/17 04:00 98.0 86 18 122/60 (80) 96 10/02/17 00:00 98.2 82 18 115/60 (78) 98 10/01/17 20:00 98.7 87 18 118/63 (81) 98 10/01/17 16:40 97.7 90 20 108/54 (72) 98 I/O 10/01/17 10/01/17 10/01/17 10/02/17 10/02/17 10/02/17 07:00 15:00 23:00 07:00 15:00 23:00 Intake Total 840 ml Balance 840 ml Intake Oral 840 ml # Voids 4 4 4 4 # Bowel Movements 1 3 2 Result Diagram: 09/29/17 1434 09/29/17 1434 Objective Remarks GENERAL: In no apparent distress. SKIN: Some petechiae involving the right upper extremity CARDIOVASCULAR: Normal rate and regular rhythm without murmurs, gallops, or rubs. RESPIRATORY: Good respiratory efforts. Breath sounds equal and clear to auscultation bilaterally. GASTROINTESTINAL: Abdomen soft, mild diffuse tenderness to palpation. Normal active bowel sounds MUSCULOSKELETAL: Extremities without cyanosis, or edema. NEURO: Alert & Oriented x4 to person, place, time, situation. Moves all ext x4. Left side is 4+ out of 5 PSYCH: Appropriate mood and affect. Procedures None A/P Problem List: (1) Liver cirrhosis ICD Code: K74.60 - Unspecified cirrhosis of liver (2) Spleen hematoma ICD Code: S36.029A - Unspecified contusion of spleen, initial encounter Status: Acute (3) Hyperbilirubinemia ICD Code: E80.6 - Other disorders of bilirubin metabolism Status: Acute (4) Splenomegaly ICD Code: R16.1 - Splenomegaly, not elsewhere classified Status: Chronic (5) Ascites ICD Code: R18.8 - Other ascites Status: Chronic (6) Hypokalemia ICD Code: E87.6 - Hypokalemia Status: Resolved (7) Macrocytic anemia ICD Code: D53.9 - Nutritional anemia, unspecified Status: Chronic (8) HTN (hypertension) ICD Code: I10 - Essential (primary) hypertension Status: Chronic (9) Fall ICD Code: W19.XXXA - Unspecified fall, initial encounter Status: Acute (10) Left shoulder pain ICD Code: M25.512 - Pain in left shoulder (11) Edema of left lower extremity ICD Code: R60.0 - Localized edema (12) Hyperammonemia ICD Code: E72.20 - Disorder of urea cycle metabolism, unspecified (13) Coagulopathy ICD Code: D68.9 - Coagulation defect, unspecified Status: Acute (14) Diarrhea ICD Code: R19.7 - Diarrhea, unspecified Assessment and Plan 62-year-old male with 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 3.5 cm. Compression of the sulci and gyri. Right frontal right-to- left subfalcine shift approximately [address] brain 09/23 - interval placement of a right frontal subdural drain. There has been replacement of some of the frontal subdural fluid with air. Otherwise little change in the configuration with persistent grossly stable subfalcine shift in lateral ventricular compression with effacement of hemispheric cortical sulci. Consultation neurosurgery noted recheck head CT in a.m. 09/25 Status post right bur hole by Dr. Carranza. Drain have since been removed. Patient was placed on levetiracetam 500 mg IV twice daily 7 days 2% saline started at 30 cc an hour. Discontinue on 09/24 Blood pressure control keep systolic blood pressure less than 140 Multivitamin, thiamine and folate daily 3 days has been completed Seizure precautions Pain medications as needed. EEG with mild to moderate encephalopathic changes. No epileptic activity Hepatitis C genotype 1A viral load positive LA class B esophagitis Portal hypertension Abdominal ascites Elevated transaminases Hypoalbuminemia CT abdomen/pelvis 09/09 revealed abdominal ascites, esophageal/gastric varices. Splenomegaly. Shrunken liver. Small splenic hematoma EGD 09/12 revealed LA class B esophagitis, gastric erythema of the antrum gastric and duodenal bulb/second portion, portal hypertension/gastropathy. Patient is on pantoprazole 40 mg po daily/home medications pantoprazole Diet as tolerated Outpatient evaluation for positive hepatitis C genotype 1A for treatment Recheck liver function tests as clinically indicated. Stable Will need outpatient follow up with GI Continue lactulose 3 times daily Add Ensure 3 times daily. Essential hypertension Currently on amlodipine 10 mg daily, KAMILAH inhibitor which will be held due to acute kidney injury, hydralazine 25 every 8 hours, furosemide 40 mg daily and Spironolactone 25 mg daily. Tobaccoism Nasal cannula to maintain saturations greater than equal to 92% Incentive spirometry while awake Tobacco cessation self-education booklet will be provided Acute kidney injury Avoid nephrotoxic medications. KAMILAH inhibitor has been held Monitor urine output Accurate I's and O Macrocytic anemia Thrombocytopenia Coagulopathic state secondary to underlying liver disease S/P Vitamin K Received 4 pack platelets since admission along with 4 FFP, 2 liquid plasma, 2 cryoprecipitate. Chronic low back pain ARTEMIO 1:320 nucleolar positive with positive double-stranded DNA Nonspecific ARTEMIO findings. Not at 1: 640 Possibly also secondary to underlying liver disease/hepatitis dsdna was positive. Will need outpatient rheumatology workup PT evaluate and treat Prophylax -GI -pantoprazole -DVT -SCD/holding pharmacological prophylaxis in light of acute subdural hematoma Discharge Planning Discharged to SNF once arrangements are made Problem Qualifiers (1) Liver cirrhosis: (2) Spleen hematoma: Qualified Codes: S36.029A - Unspecified contusion of spleen, initial encounter (3) Ascites: Qualified Codes: R18.8 - Other ascites (4) HTN (hypertension): Qualified Codes: I10 - Essential (primary) hypertension (5) Fall: Qualified Codes: W19.XXXA - Unspecified fall, initial encounter (6) Left shoulder pain: Qualified Codes: M25.512 - Pain in left shoulder (7) Diarrhea: Qualified Codes: R19.7 - Diarrhea, unspecified Sergio Mathew MD October 02, 2017 16:13
[2017-10-02 20:15] VITALS: BP 130/60; PULSE 91; RESP 19; TEMP 98; O2SAT 97
[2017-10-03] VITALS: BP 120/63; PULSE 88; RESP 18; TEMP 98; O2SAT 99
[2017-10-03] MEDS: MELATONIN 5 MG TAB PO PRN ×2 (02:36→18:57)
[2017-10-03 03:00] VITALS: BP 118/66; PULSE 69; RESP 17; TEMP 97; O2SAT 98
[2017-10-03] MEDS: CHLORHEXIDINE GLUCONATE 2 % 1 PACK (2 CLOTHS) TOP SCH (04:00)
[2017-10-03] MEDS: hydrALAZINE HCL 25 MG TAB PO SCH ×3 (05:40→22:35)
[2017-10-03] MEDS: LACTULOSE SYRUP 20 GM/30 ML CUP PO SCH ×3 (07:47→16:33)
[2017-10-03] MEDS: DOCUSATE SODIUM 50 MG/SENNA 8.6 MG TAB PO SCH ×2 (07:47→22:35)
[2017-10-03] MEDS: PANTOPRAZOLE SOD 40 MG DELAYED RELEASE TAB PO SCH (07:47)
[2017-10-03] MEDS: THIAMINE HCL 100 MG TAB PO SCH (07:47)
[2017-10-03] MEDS: MULTIVITAMIN TAB PO SCH (07:47)
[2017-10-03] MEDS: FUROSEMIDE 40 MG TAB PO SCH (07:47)
[2017-10-03] MEDS: SPIRONOLACTONE 25 MG TAB PO SCH (07:48)
[2017-10-03] MEDS: SODIUM CHLORIDE 0.9% FLUSH 10 ML FLUSH IV FLUSH SCH ×2 (07:48→22:35)
[2017-10-03 07:59] VITALS: BP 121/57; PULSE 100; RESP 20; TEMP 102.1; O2SAT 96
[2017-10-03] MEDS: ARTIFICIAL TEARS OPTH SOLN 15 ML BTL EACH EYE SCH ×3 (08:01→16:33)
[2017-10-03] MEDS: ACETAMINOPHEN 500 MG CPLT PO PRN ×2 (08:16→22:34)
[2017-10-03] MEDS: diphenhydrAMINE HCL 25 MG CAP PO PRN (11:08)
[2017-10-03 11:10] VITALS: BP 116/57; PULSE 87; RESP 20; TEMP 99.5; O2SAT 95
--- NOTE | 2017-10-03 15:30 | HHI.PR ---
Subjective Remarks "Hanging in there "patient denied any fever or dysuria or abdominal pain WBC trending down currently patient is awaiting for placement Objective Vitals Vital Signs Date Time Temp Pulse Resp B/P (MAP) Pulse Ox O2 Delivery O2 Flow Rate FiO2 10/03/17 11:10 99.5 87 20 116/57 (76) 95 10/03/17 11:02 16 10/03/17 07:59 102.1 100 20 121/57 (78) 96 10/03/17 03:00 97.0 69 17 118/66 (83) 98 10/03/17 00:00 98.0 88 18 120/63 (82) 99 10/02/17 20:15 98.0 91 19 130/60 (83) 97 10/02/17 16:00 98.1 89 18 123/57 (79) 98 I/O 10/02/17 10/02/17 10/02/17 10/03/17 10/03/17 10/03/17 06:59 14:59 22:59 06:59 14:59 22:59 Intake Total 800 ml 600 ml Output Total 500 ml Balance 800 ml 100 ml Intake Oral 800 ml 600 ml Output Urine Total 500 ml # Voids 4 4 0 # Bowel Movements 2 0 0 Result Diagram: 09/29/17 1434 09/29/17 1434 Objective Remarks GENERAL: This is a well-nourished, well-developed patient, in no apparent distress. CARDIOVASCULAR: RRR, 3/6 sys M RESPIRATORY: Fair air entry bilaterally. No W, R, or R GASTROINTESTINAL: Abdomen soft, non-tender, nondistended. Positive bowel sounds MUSCULOSKELETAL: Extremities without clubbing, cyanosis, or edema. Pedal pulses appreciated NEUROLOGICAL: Awake and alert. Moves all extremity. Normal speech.no focal neurological deficit Procedures None A/P Problem List: (1) Liver cirrhosis ICD Code: K74.60 - Unspecified cirrhosis of liver (2) Spleen hematoma ICD Code: S36.029A - Unspecified contusion of spleen, initial encounter Status: Acute (3) Hyperbilirubinemia ICD Code: E80.6 - Other disorders of bilirubin metabolism Status: Acute (4) Splenomegaly ICD Code: R16.1 - Splenomegaly, not elsewhere classified Status: Chronic (5) Ascites ICD Code: R18.8 - Other ascites Status: Chronic (6) Hypokalemia ICD Code: E87.6 - Hypokalemia Status: Resolved (7) Macrocytic anemia ICD Code: D53.9 - Nutritional anemia, unspecified Status: Chronic (8) HTN (hypertension) ICD Code: I10 - Essential (primary) hypertension Status: Chronic (9) Fall ICD Code: W19.XXXA - Unspecified fall, initial encounter Status: Acute (10) Left shoulder pain ICD Code: M25.512 - Pain in left shoulder (11) Edema of left lower extremity ICD Code: R60.0 - Localized edema (12) Hyperammonemia ICD Code: E72.20 - Disorder of urea cycle metabolism, unspecified (13) Coagulopathy ICD Code: D68.9 - Coagulation defect, unspecified Status: Acute (14) Diarrhea ICD Code: R19.7 - Diarrhea, unspecified Assessment and Plan 62-year-old male with coagulopathy from end-stage liver disease who had a subdural hematoma: 10/03: WBC trending down, continue current care, awaiting placement A/P: Acute/subacute/chronic right subdural hematoma -3.5 cm thickness with compression of the sulci/gyri with the right to left subfalcine shift 4.7 mm History of EtOH use Chronic low back pain Acute encephalopathy CT brain 09/18 revealed acute, subacute and chronic components to right subdural hematoma. 3.5 cm. Compression of the sulci and gyri. Right frontal right-to- left subfalcine shift approximately [address] brain 09/23 - interval placement of a right frontal subdural drain. There has been replacement of some of the frontal subdural fluid with air. Otherwise little change in the configuration with persistent grossly stable subfalcine shift in lateral ventricular compression with effacement of hemispheric cortical sulci. Consultation neurosurgery noted recheck head CT in a.m. 09/25 Status post right bur hole by Dr. Carranza. Drain have since been removed. Patient was placed on levetiracetam 500 mg IV twice daily 7 days 2% saline started at 30 cc an hour. Discontinue on 09/24 Blood pressure control keep systolic blood pressure less than 140 Multivitamin, thiamine and folate daily 3 days has been completed Seizure precautions Pain medications as needed. EEG with mild to moderate encephalopathic changes. No epileptic activity Hepatitis C genotype 1A viral load positive LA class B esophagitis Portal hypertension Abdominal ascites Elevated transaminases Hypoalbuminemia CT abdomen/pelvis 09/09 revealed abdominal ascites, esophageal/gastric varices. Splenomegaly. Shrunken liver. Small splenic hematoma EGD 09/12 revealed LA class B esophagitis, gastric erythema of the antrum gastric and duodenal bulb/second portion, portal hypertension/gastropathy. Patient is on pantoprazole 40 mg po daily/home medications pantoprazole Diet as tolerated Outpatient evaluation for positive hepatitis C genotype 1A for treatment Recheck liver function tests as clinically indicated. Stable Will need outpatient follow up with GI Continue lactulose 3 times daily Add Ensure 3 times daily. Essential hypertension Currently on amlodipine 10 mg daily, KAMILAH inhibitor which will be held due to acute kidney injury, hydralazine 25 every 8 hours, furosemide 40 mg daily and Spironolactone 25 mg daily. Tobaccoism Nasal cannula to maintain saturations greater than equal to 92% Incentive spirometry while awake Tobacco cessation self-education booklet will be provided Acute kidney injury Avoid nephrotoxic medications. KAMILAH inhibitor has been held Monitor urine output Accurate I's and O Macrocytic anemia Thrombocytopenia Coagulopathic state secondary to underlying liver disease S/P Vitamin K Received 4 pack platelets since admission along with 4 FFP, 2 liquid plasma, 2 cryoprecipitate. Chronic low back pain ARTEMIO 1:320 nucleolar positive with positive double-stranded DNA Nonspecific ARTEMIO findings. Not at 1: 640 Possibly also secondary to underlying liver disease/hepatitis dsdna was positive. Will need outpatient rheumatology workup PT evaluate and treat Prophylax -GI -pantoprazole -DVT -SCD/holding pharmacological prophylaxis in light of acute subdural hematoma Discharge Planning Discharged to SNF once arrangements are made Problem Qualifiers (1) Liver cirrhosis: (2) Spleen hematoma: Qualified Codes: S36.029A - Unspecified contusion of spleen, initial encounter (3) Ascites: Qualified Codes: R18.8 - Other ascites (4) HTN (hypertension): Qualified Codes: I10 - Essential (primary) hypertension (5) Fall: Qualified Codes: W19.XXXA - Unspecified fall, initial encounter (6) Left shoulder pain: Qualified Codes: M25.512 - Pain in left shoulder (7) Diarrhea: Qualified Codes: R19.7 - Diarrhea, unspecified Lamont Ny MD October 03, 2017 15:30
[2017-10-03 16:00] VITALS: BP 163/74; PULSE 104; RESP 20; TEMP 98.3; O2SAT 98
[2017-10-03] MEDS: cloNIDine HCL 0.1 MG TAB PO PRN (16:33)
[2017-10-03] MEDS: ENALAPRILAT 1.25 MG/ML VIAL IV PUSH PRN (16:33)
[2017-10-03 17:29] LABS: AUTOMATED NEUTROPHIL # 8.3 TH/MM3 (1.8-7.7); BASOPHIL # 0.1 TH/MM3 (0-0.2); BASOPHIL % 0.4 % (0.0-2.0); EOSINOPHIL # 0.1 TH/MM3 (0-0.4); EOSINOPHIL % 0.7 % (0.0-4.0); HEMATOCRIT 30.4 % (39.0-51.0); HEMOGLOBIN 10.5 GM/DL (13.0-17.0); LYMPH % 13.4 % (9.0-44.0); LYMPHOCYTE # 1.6 TH/MM3 (1.0-4.8); MEAN CELL VOLUME 103.7 FL (80.0-100.0); MEAN CORPUSCULAR HEMOGLOBIN 35.8 PG (27.0-34.0); MEAN CORPUSCULAR HGB CONC 34.5 % (32.0-36.0); MEAN PLATELET VOLUME 8.9 FL (7.0-11.0); MONO % 13.8 % (0.0-8.0); MONOCYTE # 1.6 TH/MM3 (0-0.9); NEUT % 71.7 % (16.0-70.0); PLATELET COUNT 77 TH/MM3 (150-450); RED BLOOD COUNT 2.93 MIL/MM3 (4.50-5.90); RED CELL DISTRIBUTION WIDTH 14.9 % (11.6-17.2); WHITE BLOOD COUNT 11.7 TH/MM3 (4.0-11.0)
[2017-10-03 21:01] VITALS: BP 151/72; PULSE 105; RESP 20; TEMP 100.4; O2SAT 95
[2017-10-04] VITALS (7 sets, daily range): BP systolic 109–137; BP diastolic 54–64; PULSE 79–103; RESP 20; TEMP 98.3–101; O2SAT 95–98
[2017-10-04] MEDS: CHLORHEXIDINE GLUCONATE 2 % 1 PACK (2 CLOTHS) TOP SCH (04:00)
[2017-10-04] MEDS: hydrALAZINE HCL 25 MG TAB PO SCH ×3 (05:25→21:08)
[2017-10-04] MEDS: ACETAMINOPHEN 500 MG CPLT PO PRN (05:25)
[2017-10-04] MEDS: SODIUM CHLORIDE 0.9% FLUSH 10 ML FLUSH IV FLUSH SCH ×2 (09:00→21:00)
[2017-10-04] MEDS: ARTIFICIAL TEARS OPTH SOLN 15 ML BTL EACH EYE SCH ×3 (09:00→16:58)
[2017-10-04] MEDS: LACTULOSE SYRUP 20 GM/30 ML CUP PO SCH ×3 (09:50→17:00)
[2017-10-04] MEDS: PANTOPRAZOLE SOD 40 MG DELAYED RELEASE TAB PO SCH (09:50)
[2017-10-04] MEDS: THIAMINE HCL 100 MG TAB PO SCH (09:50)
[2017-10-04] MEDS: FUROSEMIDE 40 MG TAB PO SCH (09:50)
[2017-10-04] MEDS: MULTIVITAMIN TAB PO SCH (09:50)
[2017-10-04] MEDS: SPIRONOLACTONE 25 MG TAB PO SCH (09:51)
[2017-10-04] MEDS: DOCUSATE SODIUM 50 MG/SENNA 8.6 MG TAB PO SCH ×2 (09:51→21:00)
[2017-10-04] MEDS ORDERED: IBUPROFEN 400 MG TAB PO PRN (12:00)
--- NOTE | 2017-10-04 12:04 | RADRPT ---
EXAM DATE: 10/04/2017 11:56 AM EDT AGE/SEX: 62 years / Male INDICATIONS: Fever. CLINICAL DATA: This is the patient's subsequent encounter. Patient reports that signs and symptoms h ave been present for 2 days and indicates a pain score of 0/10. MEDICAL/SURGICAL HISTORY: None. None. COMPARISON: No prior exams available for comparison. FINDINGS: A single AP view of the chest demonstrates the lungs to be symmetrically aerated without evidence of mass, infiltrate or effusion. The cardiomediastinal contours are unremarkable. Osseous structures a re intact. CONCLUSION: No acute cardiopulmonary process. Electronically signed by: Jairo Kelly MD 10/04/2017 12:03 PM EDT
[2017-10-04] MEDS ORDERED: VANCOMYCIN INJ 1,100 MG in SODIUM CHLOR 0.9% 250 ML INJ 250 ML IV ONE (13:00)
[2017-10-04] MEDS ORDERED: PIPERACIL-TAZO 4.5 GM PREMIX 100 ML IV SCH (14:00)
[2017-10-04] MEDS ORDERED: VANCOMYCIN 1,000 MG/NS 250 ML IV ONE ×2 (14:00)
[2017-10-04 14:27] LABS: HEMATOCRIT 28.3 % (39.0-51.0); HEMOGLOBIN 9.8 GM/DL (13.0-17.0); MEAN CELL VOLUME 103.2 FL (80.0-100.0); MEAN CORPUSCULAR HEMOGLOBIN 35.6 PG (27.0-34.0); MEAN CORPUSCULAR HGB CONC 34.5 % (32.0-36.0); MEAN PLATELET VOLUME 8.9 FL (7.0-11.0); PLATELET COUNT 77 TH/MM3 (150-450); RED BLOOD COUNT 2.75 MIL/MM3 (4.50-5.90); RED CELL DISTRIBUTION WIDTH 14.8 % (11.6-17.2); WHITE BLOOD COUNT 12.1 TH/MM3 (4.0-11.0)
[2017-10-04 14:52] LABS: BICARBONATE 19.1 MEQ/L (21.0-32.0); CALCIUM 8.3 MG/DL (8.5-10.1); CREATININE 1.63 MG/DL (0.60-1.30)
--- NOTE | 2017-10-04 14:57 | PD.CONS ---
History of Present Illness Service Infectious disease Consult Requested By Dr Zackary carty Reason for Consult Evaluate patient with fever Primary Care Physician Unknown Diagnoses: History of Present Illness Patient seen and examined. Records reviewed. Patient is a 62-year-old male, with known history of significant alcohol use, presented to the hospital after a fall. He was complaining of some left-sided chest pain, as well as pain on the left side of his trunk including shoulder and abdomen. He had a CT of the abdomen and pelvis which revealed portal gastropathy, ascites, liver cirrhosis, and a possible subcapsular splenic hematoma. Patient was seen by GI, and upper endoscopy was done which showed esophagitis, gastritis, portal hypertensive gastropathy, and some inflammation of the duodenum. On September 18, he was transferred to the ICU for acute onset of left-sided weakness. CT of the head showed subdural hematoma. He had placement of a bur hole, on , and this was removed on . His neurological status improved, and he still has some residual left-sided weakness. Patient was transitioned to the medical floor, and starting yesterday he developed a fever of 102. He still febrile today, and so infectious disease consultation has been requested to evaluate the patient. Patient denies any significant coughing or any chest pain or shortness of breath. He has not had any nausea or vomiting, no abdominal pain. He has had on and off diarrhea, but he is on lactulose. He has no Rooney catheter, and he denies any problem urinating. Patient has no central line, and only has peripheral IV. Patient was started on antibiotics and is on IV Zosyn, and has received a dose of IV vancomycin. His chest x-ray is normal. He had 2 blood cultures done today. Patient currently feels weak. He states he has done some ambulation. Patient has not had any fever since admission. He has not been on any antibiotics. Infectious disease consultation has been requested to evaluate the patient with no fevers. Review of Systems Constitutional: COMPLAINS OF: Fatigue, Fever Eyes: DENIES: Eye pain Ears, nose, mouth, throat: DENIES: Nasal discharge, Oral lesions, Throat pain, Ear Pain, Sinus Pain Respiratory: DENIES: Cough, Shortness of breath Cardiovascular: DENIES: Chest pain, Palpitations, Lower Extremity Edema Gastrointestinal: COMPLAINS OF: Diarrhea, DENIES: Abdominal pain, Nausea, Vomiting, Difficulty Swallowing Genitourinary: DENIES: Dysuria Musculoskeletal: COMPLAINS OF: Muscle aches, DENIES: Joint pain, Joint Swelling Integumentary: DENIES: Pruritus Neurologic: COMPLAINS OF: Localized weakness, DENIES: Headache Psychiatric: DENIES: Hallucinations Past Family Social History Allergies: Coded Allergies: No Known Allergies (Verified Adverse Reaction, Unknown, 09/09/17) Past Medical History Peptic ulcer disease Anxiety Hypertension Substance abuse Past Surgical History None Active Ordered Medications Current Medications Medications (Trade) Dose Ordered Sig/Tosin Route Start Time Stop Time Status Last Admin (NS Flush) 2 ml UNSCH PRN IV FLUSH 09/09/17 09:15 09/24/17 21:30 (NS Flush) 2 ml BID IV FLUSH 09/09/17 21:00 10/03/17 22:35 (Zofran Inj) 4 mg Q6H PRN IVP 09/09/17 09:15 09/28/17 21:48 (Narcan Inj) 0.4 mg UNSCH PRN IV PUSH 09/09/17 09:15 (Toña-Colace) 1 tab BID PO 09/09/17 21:00 10/04/17 09:51 (Milk Of Magnesia Liq) 30 ml Q12H PRN PO 09/09/17 09:15 10/01/17 02:38 (Senokot) 17.2 mg Q12H PRN PO 09/09/17 09:15 (Dulcolax Supp) 10 mg DAILY PRN RECTAL 09/09/17 09:15 (Romazicon Inj) 0.2 mg Q1M PRN IV PUSH 09/09/17 20:00 (Ativan) 1 mg Q4H PRN PO 09/09/17 20:00 (Ativan Inj) 1 mg Q4H PRN IV PUSH 09/09/17 20:00 (Ativan) 2 mg Q2H PRN PO 09/09/17 20:00 (Ativan Inj) 2 mg Q2H PRN IV PUSH 09/09/17 20:00 (Ativan Inj) 2 mg Q1H PRN IV PUSH 09/09/17 20:00 (Ativan Inj) 2 mg Q15M PRN IV PUSH 09/09/17 20:00 (Aldactone) 25 mg DAILY PO 09/09/17 20:00 10/04/17 09:51 (Catapres) 0.1 mg Q6H PRN PO 09/10/17 12:45 10/03/17 16:33 (Lasix) 40 mg DAILY PO 09/15/17 13:30 10/04/17 09:50 (Trandate Inj) 10 mg Q1HR PRN IV PUSH 09/18/17 14:15 09/21/17 03:30 Nicardipine HCl 25 mg/Sodium Chloride 250 ml @ 50 mls/hr TITRATE PRN IV 09/18/17 14:15 (Tears Naturale Opth Soln) 1 drop TID EACH EYE 09/18/17 18:00 10/01/17 18:16 (Zofran Odt) 4 mg Q6H PRN PO 09/18/17 14:45 (Albuterol Neb) 2.5 mg Q2HR NEB PRN INH 09/18/17 14:45 09/28/17 12:28 ([facility]) 1 Q361D XX 09/18/17 14:45 09/18/17 14:45 (Chlorhexidine 2% Cloth) Taper DAILY@04 TOP 09/19/17 04:00 09/15/18 03:59 09/23/17 04:00 (Chlorhexidine 2% Cloth) 3 pack UNSCH PRN TOP 09/18/17 14:45 (Norvasc) 10 mg DAILY PO 09/22/17 09:00 10/04/17 09:50 (Apresoline Inj) 10 mg Q1HR PRN IV PUSH 09/21/17 12:45 (Vasotec Inj) 1.25 mg Q8H PRN IV PUSH 09/21/17 12:45 10/03/17 16:33 Clevidipine 50 ml @ 2 mls/hr TITRATE PRN IV 09/21/17 13:00 (Protonix) 40 mg DAILY PO 09/22/17 09:00 10/04/17 09:50 (Apresoline) 25 mg Q8HR PO 09/21/17 15:45 10/04/17 05:25 (Vitamin B1) 100 mg DAILY PO 09/25/17 09:00 10/04/17 09:50 (Theragran) 1 tab DAILY PO 09/25/17 09:00 10/04/17 09:50 (Tylenol) 500 mg Q4H PRN PO 09/28/17 10:45 10/04/17 05:25 (Melatonin) 5 mg HS PRN PO 09/30/17 21:00 10/03/17 18:57 (Roxicodone) 5 mg Q6H PRN PO 10/01/17 11:15 10/03/17 10:01 (Lactulose Liq) 30 ml TID PO 10/01/17 13:00 10/04/17 13:26 (Motrin) 400 mg Q6H PRN PO 10/04/17 12:00 10/04/17 12:39 Piperacillin Sod/ Tazobactam Sod 100 ml @ 200 mls/hr Q6H IV 10/04/17 14:00 Vancomycin HCl 1000 mg/Sodium Chloride 250 ml @ 250 mls/hr ONCE ONCE IV 10/04/17 14:00 10/04/17 14:59 10/04/17 14:18 Family History Noncontributory Social History Patient is a smoker Known history of significant alcohol use Denies illicit drug Physical Exam Vital Signs Vital Signs Date Time Temp Pulse Resp B/P (MAP) Pulse Ox O2 Delivery O2 Flow Rate FiO2 10/04/17 11:14 99.1 101 20 128/60 (82) 98 10/04/17 09:49 89 126/60 (82) 98 10/04/17 08:20 101.0 89 20 109/55 (73) 96 10/04/17 05:12 99.8 96 20 137/64 (88) 97 10/04/17 00:29 100.2 103 20 135/64 (87) 97 10/03/17 21:01 100.4 105 20 151/72 (98) 95 10/03/17 16:00 98.3 104 20 163/74 (103) 98 Physical Exam GENERAL: Patient is a thin, well-developed male, awake and alert, not in respiratory distress. He looks chronically ill-appearing SKIN: Warm and dry. Has scattered petechial rash, and also with spider angiomatas. HEAD: Normocephalic. No temporal wasting, or tenderness. previous [place] hole sit dry with no drainage or redness EYES: [place] conjunctiva. No petechia or hemorrhage. Pupils equal, round and reactive to light. Extraocular movements full and intact. Has scleral icterus. No injection or drainage. EARS, NOSE AND THROAT: Nose without bleeding or purulent nasal discharge. No sinus tenderness. Mucous membranes pink and moist. No oral lesions noted. NECK: Trachea midline. Supple and not tender, no meningeal signs CARDIOVASCULAR: Regular rate and rhythm. No murmurs, rubs or gallops heard RESPIRATORY: Clear to auscultation. Breath sounds equal bilaterally. No rales , wheezing or rhonchi ABDOMEN: Soft, non-tender, nondistended. Bowel sounds present and normoactive. No guarding. No rebound. No organomegaly. Has varicosities in upper abdomen. Incontinent of stool EXTREMITIES: No clubbing, cyanosis, or edema. No joint effusion, has good ROM. No calf tenderness. Well perfused and warm. NEUROLOGICAL: Awake and alert. Cranial nerves grossly intact. Has weakness L side about 4/5 PSYCHIATRIC: Normal affect, calm and cooperative. LINE: No evidence of infection Laboratory Laboratory Tests Test 10/03/17 16:02 10/04/17 13:39 White Blood Count 11.7 12.1 Red Blood Count 2.93 2.75 Hemoglobin 10.5 9.8 Hematocrit 30.4 28.3 Mean Corpuscular Volume 103.7 103.2 Mean Corpuscular Hemoglobin 35.8 35.6 Mean Corpuscular Hemoglobin Concent 34.5 34.5 Red Cell Distribution Width 14.9 14.8 Platelet Count 77 77 Mean Platelet Volume 8.9 8.9 Neutrophils (%) (Auto) 71.7 Lymphocytes (%) (Auto) 13.4 Monocytes (%) (Auto) 13.8 Eosinophils (%) (Auto) 0.7 Basophils (%) (Auto) 0.4 Neutrophils # (Auto) 8.3 Lymphocytes # (Auto) 1.6 Monocytes # (Auto) 1.6 Eosinophils # (Auto) 0.1 Basophils # (Auto) 0.1 CBC Comment AUTO DIFF AUTO DIFF Differential Comment AUTO DIFF CONFIRMED Platelet Estimate LOW Platelet Morphology Comment NORMAL Date/Time Source Procedure Growth Status 10/04/17 13:44 Blood Peripheral Aerobic Blood Culture Pending Received 10/04/17 13:44 Blood Peripheral Anaerobic Blood Culture Pending Received Result Diagram: 10/03/17 1602 Imaging RADIOLOGY STUDIES/FILMS REVIEWED Chest X-Ray 10/04/17 0000 Signed Impressions: CONCLUSION: No acute cardiopulmonary process. Head CT 09/23/17 0000 Signed Impressions: Service Date/Time: Saturday, September 23, 2017 09:47 - CONCLUSION: Interval placement of subdural drain Jairo Singh MD Abdomen/Pelvis CT 09/09/17 0833 Signed Impressions: Service Date/Time: Saturday, September 09, 2017 09:09 - CONCLUSION: Extensive ascites with cirrhosis or varicosities. Prominent spleen with possible tiny subcapsular hematoma series 2 image 30. Minimal induration anterior abdominal wall left side. Gilbert Lockett MD FACR Shoulder X-Ray 09/09/17 0000 Signed Impressions: Service Date/Time: Saturday, September 09, 2017 21:01 - CONCLUSION: 1. No acute bony abnormality. Vito Minor MD Lower Extremity Ultrasound 09/09/17 0000 Signed Impressions: Service Date/Time: Saturday, September 09, 2017 21:41 - CONCLUSION: Normal examination. Henok Young MD Elbow X-Ray 09/09/17 0000 Signed Impressions: Service Date/Time: Saturday, September 09, 2017 20:53 - CONCLUSION: 1. No acute bony abnormalities. Vito Minor MD Assessment and Plan Assessment and Plan IMPRESSION New fever, not localizing - CXR clear - no complaints - has diarrhea, on lactulose - no central line - no rooney - clinically no evidence of SBP ETOH liver cirrhosis with portal HTN Recent fall, has SDH, drained RECOMMENDATION Agree with work-up - BC and UC Stool for C diff Continue Zosyn, will cover Add Flagyl Follow C/S Monitor temps Monitor progress Will adjust Abx once workup completed I will follow along with you Thank you for this consultation Raya Sequeira MD Oct 04, 2017 14:57
[2017-10-04] MEDS ORDERED: SODIUM CHLOR 0.9% 1000 ML INJ 1,000 ML IV SCH (15:15)
[2017-10-04 15:41] LABS: BANDS 17 % (0-6); LYMPHOCYTES 3 % (9-44); MONOCYTES 5 % (0-8); NEUTROPHIL # MANUAL DIFF 11.1 TH/MM3 (1.8-7.7); POLYS (SEG NEUTROPHILS) 74 % (16-70); PROMYELOCYTES 1 % (0-0)
[2017-10-04] MEDS: metroNIDAZOLE 500 MG TAB PO SCH ×2 (16:46→23:23)
[2017-10-04] MEDS: PIPERACIL-TAZO 4.5 GM PREMIX 100 ML IV SCH ×2 (16:55→23:23)
--- NOTE | 2017-10-04 18:34 | HHI.PR ---
Subjective Remarks Patient resting in bed denying any complaint including fever however patient has been spiking fever since yesterday night, 102, 101, 100.9 No dysuria, no abdominal pain, no cough Objective Vitals Vital Signs Date Time Temp Pulse Resp B/P (MAP) Pulse Ox O2 Delivery O2 Flow Rate FiO2 10/04/17 16:18 99.1 83 20 109/59 (76) 97 10/04/17 11:14 99.1 101 20 128/60 (82) 98 10/04/17 09:49 89 126/60 (82) 98 10/04/17 08:20 101.0 89 20 109/55 (73) 96 10/04/17 05:12 99.8 96 20 137/64 (88) 97 10/04/17 00:29 100.2 103 20 135/64 (87) 97 10/03/17 21:01 100.4 105 20 151/72 (98) 95 I/O 10/03/17 10/03/17 10/03/17 10/04/17 10/04/17 10/04/17 07:00 15:00 23:00 07:00 15:00 23:00 Intake Total 600 ml 600 ml Output Total 500 ml Balance 100 ml 600 ml Intake Oral 600 ml 600 ml Output Urine Total 500 ml # Voids 6 1 # Bowel Movements 0 2 Result Diagram: 10/04/17 1339 10/04/17 1339 Objective Remarks GENERAL: This is a well-nourished, well-developed patient, in no apparent distress. CARDIOVASCULAR: RRR, 3/6 sys M RESPIRATORY: Fair air entry bilaterally. No W, R, or R GASTROINTESTINAL: Abdomen soft, non-tender, nondistended. Positive bowel sounds MUSCULOSKELETAL: Extremities without clubbing, cyanosis, or edema. Pedal pulses appreciated NEUROLOGICAL: Awake and alert. Moves all extremity. Normal speech.no focal neurological deficit Procedures None A/P Problem List: (1) Liver cirrhosis ICD Code: K74.60 - Unspecified cirrhosis of liver (2) Spleen hematoma ICD Code: S36.029A - Unspecified contusion of spleen, initial encounter Status: Acute (3) Hyperbilirubinemia ICD Code: E80.6 - Other disorders of bilirubin metabolism Status: Acute (4) Splenomegaly ICD Code: R16.1 - Splenomegaly, not elsewhere classified Status: Chronic (5) Ascites ICD Code: R18.8 - Other ascites Status: Chronic (6) Hypokalemia ICD Code: E87.6 - Hypokalemia Status: Resolved (7) Macrocytic anemia ICD Code: D53.9 - Nutritional anemia, unspecified Status: Chronic (8) HTN (hypertension) ICD Code: I10 - Essential (primary) hypertension Status: Chronic (9) Fall ICD Code: W19.XXXA - Unspecified fall, initial encounter Status: Acute (10) Left shoulder pain ICD Code: M25.512 - Pain in left shoulder (11) Edema of left lower extremity ICD Code: R60.0 - Localized edema (12) Hyperammonemia ICD Code: E72.20 - Disorder of urea cycle metabolism, unspecified (13) Coagulopathy ICD Code: D68.9 - Coagulation defect, unspecified Status: Acute (14) Diarrhea ICD Code: R19.7 - Diarrhea, unspecified Assessment and Plan 62-year-old male with coagulopathy from end-stage liver disease who had a subdural hematoma: 10/03: WBC trending down, continue current care, awaiting placement 10/04: Acute spiking fever since last night 102/101/100 0.4, I discussed with the nurse and I ordered stat chest x-ray, UA, blood culture, due to increased bilirubin I will order liver ultrasound, patient does not have signs of SBP need to rule out cholecystitis. I will start on Zosyn and give a dose of vancomycin, I will consult ID A/P: Acute/subacute/chronic right subdural hematoma -3.5 cm thickness with compression of the sulci/gyri with the right to left subfalcine shift 4.7 mm History of EtOH use Chronic low back pain Acute encephalopathy CT brain 09/18 revealed acute, subacute and chronic components to right subdural hematoma. 3.5 cm. Compression of the sulci and gyri. Right frontal right-to- left subfalcine shift approximately [address] brain 09/23 - interval placement of a right frontal subdural drain. There has been replacement of some of the frontal subdural fluid with air. Otherwise little change in the configuration with persistent grossly stable subfalcine shift in lateral ventricular compression with effacement of hemispheric cortical sulci. Consultation neurosurgery noted recheck head CT in a.m. 09/25 Status post right bur hole by Dr. Carranza. Drain have since been removed. Patient was placed on levetiracetam 500 mg IV twice daily 7 days 2% saline started at 30 cc an hour. Discontinue on 09/24 Blood pressure control keep systolic blood pressure less than 140 Multivitamin, thiamine and folate daily 3 days has been completed Seizure precautions Pain medications as needed. EEG with mild to moderate encephalopathic changes. No epileptic activity Hepatitis C genotype 1A viral load positive LA class B esophagitis Portal hypertension Abdominal ascites Elevated transaminases Hypoalbuminemia CT abdomen/pelvis 09/09 revealed abdominal ascites, esophageal/gastric varices. Splenomegaly. Shrunken liver. Small splenic hematoma EGD 09/12 revealed LA class B esophagitis, gastric erythema of the antrum gastric and duodenal bulb/second portion, portal hypertension/gastropathy. Patient is on pantoprazole 40 mg po daily/home medications pantoprazole Diet as tolerated Outpatient evaluation for positive hepatitis C genotype 1A for treatment Recheck liver function tests as clinically indicated. Stable Will need outpatient follow up with GI Continue lactulose 3 times daily Add Ensure 3 times daily. Essential hypertension Currently on amlodipine 10 mg daily, KAMILAH inhibitor which will be held due to acute kidney injury, hydralazine 25 every 8 hours, furosemide 40 mg daily and Spironolactone 25 mg daily. Tobaccoism Nasal cannula to maintain saturations greater than equal to 92% Incentive spirometry while awake Tobacco cessation self-education booklet will be provided Acute kidney injury Avoid nephrotoxic medications. KAMILAH inhibitor has been held Monitor urine output Accurate I's and O Macrocytic anemia Thrombocytopenia Coagulopathic state secondary to underlying liver disease S/P Vitamin K Received 4 pack platelets since admission along with 4 FFP, 2 liquid plasma, 2 cryoprecipitate. Chronic low back pain ARTEMIO 1:320 nucleolar positive with positive double-stranded DNA Nonspecific ARTEMIO findings. Not at 1: 640 Possibly also secondary to underlying liver disease/hepatitis dsdna was positive. Will need outpatient rheumatology workup PT evaluate and treat Prophylax -GI -pantoprazole -DVT -SCD/holding pharmacological prophylaxis in light of acute subdural hematoma Discharge Planning Discharged to SNF once arrangements are made Problem Qualifiers (1) Liver cirrhosis: (2) Spleen hematoma: Qualified Codes: S36.029A - Unspecified contusion of spleen, initial encounter (3) Ascites: Qualified Codes: R18.8 - Other ascites (4) HTN (hypertension): Qualified Codes: I10 - Essential (primary) hypertension (5) Fall: Qualified Codes: W19.XXXA - Unspecified fall, initial encounter (6) Left shoulder pain: Qualified Codes: M25.512 - Pain in left shoulder (7) Diarrhea: Qualified Codes: R19.7 - Diarrhea, unspecified Lamont Ny MD Oct 04, 2017 18:34
--- NOTE | 2017-10-04 22:51 | RADRPT ---
EXAM DATE: 10/04/2017 10:37 PM EDT AGE/SEX: 62 years / Male INDICATIONS: Fever. CLINICAL DATA: This is the patient's initial encounter. Patient reports that signs and symptoms have been present for 4 - 6 days and indicates a pain score of 0/10. MEDICAL/SURGICAL HISTORY: Hypertension. Arthritis. . COMPARISON: [facility] [place], CT ABDOMEN & PELVIS W CONTRAST, 09/09/2017. . MEASUREMENTS (cm x cm x cm): Liver:__ 15.4 cm length Common Bile Duct:__ 4mm Right Kidney:__ 11.3 x 6.1 x 1.9 cm FINDINGS: Liver: Coarsened and mildly increased echotexture with nodular contour. No focal liver lesion is appr eciated. Portal Vein: Hepatofugal flow seen in portal vein. Common Duct: No intraluminal mass or stone. Gallbladder: Demonstrates no wall thickening or pericholecystic fluid. No stones visualized. Gallbla dder Wall: 1 mm Pancreas: Not well visualized. Right Kidney: No mass or hydronephrosis Other: The spleen is enlarged measuring 18.6 cm in length. There is a small volume of ascites around the liver. Recanalized paraumbilical vein is visualized. CONCLUSION: 1. No specific abnormality is identified to explain the patient's fever. 2. However, there are persistent findings indicating cirrhosis with findings of portal hypertension including splenomegaly, recanalized paraumbilical vein, and ascites. 3. There is hepatofugal flow in the main portal vein. Electronically signed by: Jairo Carter MD 10/04/2017 10:50 PM EDT
[2017-10-05] VITALS (7 sets, daily range): BP systolic 111–156; BP diastolic 57–73; PULSE 83–109; RESP 18–21; TEMP 98–99.6; O2SAT 96–99
[2017-10-05] MEDS: CHLORHEXIDINE GLUCONATE 2 % 1 PACK (2 CLOTHS) TOP SCH (04:00)
[2017-10-05] MEDS: PIPERACIL-TAZO 4.5 GM PREMIX 100 ML IV SCH ×4 (04:28→23:50)
[2017-10-05] MEDS: hydrALAZINE HCL 25 MG TAB PO SCH ×3 (05:16→20:57)
[2017-10-05] MEDS: metroNIDAZOLE 500 MG TAB PO SCH ×3 (06:02→23:47)
[2017-10-05 07:26] LABS: HEMOGLOBIN 9.4 GM/DL (13.0-17.0); MEAN CELL VOLUME 101.9 FL (80.0-100.0); MEAN CORPUSCULAR HEMOGLOBIN 35.5 PG (27.0-34.0); MEAN CORPUSCULAR HGB CONC 34.9 % (32.0-36.0); MEAN PLATELET VOLUME 8.9 FL (7.0-11.0); PLATELET COUNT 54 TH/MM3 (150-450); RED BLOOD COUNT 2.65 MIL/MM3 (4.50-5.90); WHITE BLOOD COUNT 11.4 TH/MM3 (4.0-11.0)
[2017-10-05 07:47] LABS: BICARBONATE 19.9 MEQ/L (21.0-32.0); CALCIUM 7.8 MG/DL (8.5-10.1); CREATININE 1.68 MG/DL (0.60-1.30)
[2017-10-05] MEDS: SPIRONOLACTONE 25 MG TAB PO SCH (08:58)
[2017-10-05] MEDS: PANTOPRAZOLE SOD 40 MG DELAYED RELEASE TAB PO SCH (08:58)
[2017-10-05] MEDS: THIAMINE HCL 100 MG TAB PO SCH (08:58)
[2017-10-05] MEDS: LACTULOSE SYRUP 20 GM/30 ML CUP PO SCH ×3 (08:59→17:51)
[2017-10-05] MEDS: MULTIVITAMIN TAB PO SCH (08:59)
[2017-10-05] MEDS: FUROSEMIDE 40 MG TAB PO SCH (08:59)
[2017-10-05] MEDS: ARTIFICIAL TEARS OPTH SOLN 15 ML BTL EACH EYE SCH ×3 (09:00→17:55)
[2017-10-05] MEDS: DOCUSATE SODIUM 50 MG/SENNA 8.6 MG TAB PO SCH ×2 (09:00→21:00)
[2017-10-05] MEDS: SODIUM CHLORIDE 0.9% FLUSH 10 ML FLUSH IV FLUSH SCH ×2 (09:00→21:10)
[2017-10-05 11:01] LABS: BANDS 12 % (0-6); METAMYELOCYTES 1 % (0-1); MONOCYTES 6 % (0-8); NEUTROPHIL # MANUAL DIFF 10.7 TH/MM3 (1.8-7.7); POLYS (SEG NEUTROPHILS) 81 % (16-70)
--- NOTE | 2017-10-05 15:07 | HHI.IDPN ---
Subjective Subjective Remarks Infectious disease cross coverage for Dr. Sequeira Patient seen and examined. Records reviewed. Patient is a 62-year-old male, with known history of significant alcohol use, presented to the hospital after a fall. He was complaining of some left-sided chest pain, as well as pain on the left side of his trunk including shoulder and abdomen. He had a CT of the abdomen and pelvis which revealed portal gastropathy, ascites, liver cirrhosis, and a possible subcapsular splenic hematoma. Patient was seen by GI, and upper endoscopy was done which showed esophagitis, gastritis, portal hypertensive gastropathy, and some inflammation of the duodenum. On September 18, he was transferred to the ICU for acute onset of left-sided weakness. CT of the head showed subdural hematoma. He had placement of a bur hole, on , and this was removed on . His neurological status improved, and he still has some residual left-sided weakness. Patient was transitioned to the medical floor, and starting yesterday he developed a fever of 102. He still febrile today, and so infectious disease consultation has been requested to evaluate the patient. Patient denies any significant coughing or any chest pain or shortness of breath. He has not had any nausea or vomiting, no abdominal pain. He has had on and off diarrhea, but he is on lactulose. He has no Hoff catheter, and he denies any problem urinating. Patient has no central line, and only has peripheral IV. Patient was started on antibiotics and is on IV Zosyn, and has received a dose of IV vancomycin. His chest x-ray is normal. He had 2 blood cultures done today. Patient currently feels weak. He states he has done some ambulation. Patient has not had any fever since admission. He has not been on any antibiotics. Infectious disease consultation has been requested to evaluate the patient with no fevers. Overnight events reviewed with RN. No fevers recently previously T-max 101 No rash Has diarrhea but is on lactulose. Denies any hematuria or hemoptysis or blood in vomitus. Denies any tarry stools. Antibiotics Zosyn IV Lines Line sites with no evidence of infection. Past Medical History Past Medical History Peptic ulcer disease Anxiety Hypertension Substance abuse Past Surgical History None Allergies: Coded Allergies: No Known Allergies (Verified Adverse Reaction, Unknown, 09/09/17) Objective . Vital Signs Date Time Temp Pulse Resp B/P (MAP) Pulse Ox O2 Delivery O2 Flow Rate FiO2 10/05/17 10:02 18 10/05/17 08:00 99.6 90 21 126/60 (82) 98 10/05/17 04:27 99.2 89 20 111/57 (75) 98 10/05/17 01:45 98.8 90 20 114/57 (76) 97 10/05/17 00:48 98.8 109 20 156/70 (98) 96 10/04/17 20:37 98.3 79 20 122/54 (76) 95 10/04/17 16:18 99.1 83 20 109/59 (76) 97 . Laboratory Tests Test 10/03/17 16:02 10/04/17 13:39 10/05/17 06:29 White Blood Count 11.7 TH/MM3 12.1 TH/MM3 11.4 TH/MM3 Red Blood Count 2.93 MIL/MM3 2.75 MIL/MM3 2.65 MIL/MM3 Hemoglobin 10.5 GM/DL 9.8 GM/DL 9.4 GM/DL Hematocrit 30.4 % 28.3 % 27.0 % Mean Corpuscular Volume 103.7 FL 103.2 FL 101.9 FL Mean Corpuscular Hemoglobin 35.8 PG 35.6 PG 35.5 PG Mean Corpuscular Hemoglobin Concent 34.5 % 34.5 % 34.9 % Red Cell Distribution Width 14.9 % 14.8 % 15.0 % Platelet Count 77 TH/MM3 77 TH/MM3 54 TH/MM3 Mean Platelet Volume 8.9 FL 8.9 FL 8.9 FL Neutrophils (%) (Auto) 71.7 % Lymphocytes (%) (Auto) 13.4 % Monocytes (%) (Auto) 13.8 % Eosinophils (%) (Auto) 0.7 % Basophils (%) (Auto) 0.4 % Neutrophils # (Auto) 8.3 TH/MM3 Lymphocytes # (Auto) 1.6 TH/MM3 Monocytes # (Auto) 1.6 TH/MM3 Eosinophils # (Auto) 0.1 TH/MM3 Basophils # (Auto) 0.1 TH/MM3 CBC Comment AUTO DIFF AUTO DIFF AUTO DIFF Differential Comment AUTO DIFF CONFIRMED FINAL DIFF MANUAL FINAL DIFF MANUAL Platelet Estimate LOW LOW LOW Platelet Morphology Comment NORMAL ENLARGED NORMAL Differential Total Cells Counted 100 100 Neutrophils % (Manual) 74 % 81 % Band Neutrophils % 17 % 12 % Lymphocytes % 3 % Monocytes % 5 % 6 % Neutrophils # (Manual) 11.1 TH/MM3 10.7 TH/MM3 Promyelocytes 1 % Metamyelocytes 1 % Laboratory Tests Test 10/04/17 13:39 10/05/17 06:29 Blood Urea Nitrogen 24 MG/DL 25 MG/DL Creatinine 1.63 MG/DL 1.68 MG/DL Random Glucose 115 MG/DL 105 MG/DL Calcium Level 8.3 MG/DL 7.8 MG/DL Sodium Level 126 MEQ/L 128 MEQ/L Potassium Level 4.0 MEQ/L 4.0 MEQ/L Chloride Level 96 MEQ/L 98 MEQ/L Carbon Dioxide Level 19.1 MEQ/L 19.9 MEQ/L Anion Gap 11 MEQ/L 10 MEQ/L Estimat Glomerular Filtration Rate 43 ML/MIN 41 ML/MIN Microbiology Date/Time Source Procedure Growth Status 10/04/17 13:44 Blood Peripheral Aerobic Blood Culture - Preliminary Gram Negative Alan Resulted 10/04/17 13:44 Anaerobic Blood Culture - Preliminary Gram Negative Alan Resulted 10/04/17 13:39 Blood Peripheral Aerobic Blood Culture - Preliminary Escherichia Coli Resulted 10/04/17 13:39 Anaerobic Blood Culture - Preliminary Gram Negative Alan Resulted Imaging Last Impressions Liver Ultrasound 10/04/17 0000 Signed Impressions: CONCLUSION: 1. No specific abnormality is identified to explain the patient's fever. 2. However, there are persistent findings indicating cirrhosis with findings o f portal hypertension including splenomegaly, recanalized paraumbilical vein, a nd ascites. 3. There is hepatofugal flow in the main portal vein. Chest X-Ray 10/04/17 0000 Signed Impressions: CONCLUSION: No acute cardiopulmonary process. Head CT 09/23/17 0000 Signed Impressions: Service Date/Time: Saturday, September 23, 2017 09:47 - CONCLUSION: Interval placement of subdural drain Jairo Singh MD Abdomen/Pelvis CT 09/09/17 0833 Signed Impressions: Service Date/Time: Saturday, September 09, 2017 09:09 - CONCLUSION: Extensive ascites with cirrhosis or varicosities. Prominent spleen with possible tiny subcapsular hematoma series 2 image 30. Minimal induration anterior abdominal wall left side. Gilbert Lockett MD FACR Shoulder X-Ray 09/09/17 0000 Signed Impressions: Service Date/Time: Saturday, September 09, 2017 21:01 - CONCLUSION: 1. No acute bony abnormality. Vito Minor MD Lower Extremity Ultrasound 09/09/17 0000 Signed Impressions: Service Date/Time: Saturday, September 09, 2017 21:41 - CONCLUSION: Normal examination. Henok Young MD Elbow X-Ray 09/09/17 0000 Signed Impressions: Service Date/Time: Saturday, September 09, 2017 20:53 - CONCLUSION: 1. No acute bony abnormalities. Vito Minor MD Physical Exam GENERAL: Patient is a thin, well-developed male, awake and alert, not in respiratory distress. He looks chronically ill-appearing SKIN: Warm and dry. Has scattered petechial rash, and also with spider angiomatas. HEAD: Normocephalic. No temporal wasting, or tenderness. previous Estrada hole sit dry with no drainage or redness EYES: Cache conjunctiva. No petechia or hemorrhage. Pupils equal, round and reactive to light. Extraocular movements full and intact. Has scleral icterus. No injection or drainage. EARS, NOSE AND THROAT: Nose without bleeding or purulent nasal discharge. No sinus tenderness. Mucous membranes pink and moist. No oral lesions noted. NECK: Trachea midline. Supple and not tender, no meningeal signs CARDIOVASCULAR: Regular rate and rhythm. No murmurs, rubs or gallops heard RESPIRATORY: Clear to auscultation. Breath sounds equal bilaterally. No rales , wheezing or rhonchi ABDOMEN: Soft, non-tender, nondistended. Bowel sounds present and normoactive. No guarding. No rebound. No organomegaly. Has varicosities in upper abdomen. Incontinent of stool EXTREMITIES: No clubbing, cyanosis, or edema. No joint effusion, has good ROM. No calf tenderness. Well perfused and warm. NEUROLOGICAL: Awake and alert. Cranial nerves grossly intact. Has weakness L side about 4/5 PSYCHIATRIC: Normal affect, calm and cooperative. LINE: No evidence of infection Assessment & Plan Remarks Sepsis present on admission E. coli bacteremia per review of very gene there is no resistance markers like CTX M detected. Essentially no ESBL based on Verigene testing ETOH liver cirrhosis with portal HTN Recent fall, has SDH, drained Acute renal failure: likely prerenal, sepsis related. RECOMMENDATION US abdomen to look for evidence of fluid to decide if tap needed. Prior h/o large volume paracentesis per records. Repeat blood cultures x 2 Stool for C diff Continue Zosyn IV for now. Continue Flagyl till Cdiff ruled out. Ok to DC Flagyl if Cdiff negative Follow C/S Monitor temps Monitor progress Will adjust Abx once workup completed to resume care on Saturday10/07/2017. Johana Knight MD Oct 05, 2017 15:07
--- NOTE | 2017-10-05 15:38 | HHI.PR ---
Subjective Remarks Resting in bed denies no fever over 24 hours Objective Vitals Vital Signs Date Time Temp Pulse Resp B/P (MAP) Pulse Ox O2 Delivery O2 Flow Rate FiO2 10/05/17 12:00 99.5 10/05/17 10:02 18 10/05/17 08:00 99.6 90 21 126/60 (82) 98 10/05/17 04:27 99.2 89 20 111/57 (75) 98 10/05/17 01:45 98.8 90 20 114/57 (76) 97 10/05/17 00:48 98.8 109 20 156/70 (98) 96 10/04/17 20:37 98.3 79 20 122/54 (76) 95 10/04/17 16:18 99.1 83 20 109/59 (76) 97 I/O 10/04/17 10/04/17 10/04/17 10/05/17 10/05/17 10/05/17 07:00 15:00 23:00 07:00 15:00 23:00 # Voids 1 2 2 # Bowel Movements 3 Result Diagram: 10/05/17 0629 10/05/17 06 Objective Remarks GENERAL: This is a well-nourished, well-developed patient, in no apparent distress. CARDIOVASCULAR: RRR, 3/6 sys M RESPIRATORY: Fair air entry bilaterally. No W, R, or R GASTROINTESTINAL: Abdomen soft, non-tender, nondistended. Positive bowel sounds MUSCULOSKELETAL: Extremities without clubbing, cyanosis, or edema. Pedal pulses appreciated NEUROLOGICAL: Awake and alert. Moves all extremity. Normal speech.no focal neurological deficit Procedures None A/P Problem List: (1) Liver cirrhosis ICD Code: K74.60 - Unspecified cirrhosis of liver (2) Spleen hematoma ICD Code: S36.029A - Unspecified contusion of spleen, initial encounter Status: Acute (3) Hyperbilirubinemia ICD Code: E80.6 - Other disorders of bilirubin metabolism Status: Acute (4) Splenomegaly ICD Code: R16.1 - Splenomegaly, not elsewhere classified Status: Chronic (5) Ascites ICD Code: R18.8 - Other ascites Status: Chronic (6) Hypokalemia ICD Code: E87.6 - Hypokalemia Status: Resolved (7) Macrocytic anemia ICD Code: D53.9 - Nutritional anemia, unspecified Status: Chronic (8) HTN (hypertension) ICD Code: I10 - Essential (primary) hypertension Status: Chronic (9) Fall ICD Code: W19.XXXA - Unspecified fall, initial encounter Status: Acute (10) Left shoulder pain ICD Code: M25.512 - Pain in left shoulder (11) Edema of left lower extremity ICD Code: R60.0 - Localized edema (12) Hyperammonemia ICD Code: E72.20 - Disorder of urea cycle metabolism, unspecified (13) Coagulopathy ICD Code: D68.9 - Coagulation defect, unspecified Status: Acute (14) Diarrhea ICD Code: R19.7 - Diarrhea, unspecified Assessment and Plan 62-year-old male with coagulopathy from end-stage liver disease who had a subdural hematoma: 10/03: WBC trending down, continue current care, awaiting placement 10/04: Acute spiking fever since last night 102/101/100 0.4, I discussed with the nurse and I ordered stat chest x-ray, UA, blood culture, due to increased bilirubin I will order liver ultrasound, patient does not have signs of SBP need to rule out cholecystitis. I will start on Zosyn and give a dose of vancomycin, I will consult ID 10/05: No fever over 24 hours, continue antibiotic per ID recommendation, monitor clinically, CBC in the am A/P: Acute/subacute/chronic right subdural hematoma -3.5 cm thickness with compression of the sulci/gyri with the right to left subfalcine shift 4.7 mm History of EtOH use Chronic low back pain Acute encephalopathy CT brain 09/18 revealed acute, subacute and chronic components to right subdural hematoma. 3.5 cm. Compression of the sulci and gyri. Right frontal right-to- left subfalcine shift approximately [address] brain 09/23 - interval placement of a right frontal subdural drain. There has been replacement of some of the frontal subdural fluid with air. Otherwise little change in the configuration with persistent grossly stable subfalcine shift in lateral ventricular compression with effacement of hemispheric cortical sulci. Consultation neurosurgery noted recheck head CT in a.m. 09/25 Status post right bur hole by Dr. Carranza. Drain have since been removed. Patient was placed on levetiracetam 500 mg IV twice daily 7 days 2% saline started at 30 cc an hour. Discontinue on 09/24 Blood pressure control keep systolic blood pressure less than 140 Multivitamin, thiamine and folate daily 3 days has been completed Seizure precautions Pain medications as needed. EEG with mild to moderate encephalopathic changes. No epileptic activity Hepatitis C genotype 1A viral load positive LA class B esophagitis Portal hypertension Abdominal ascites Elevated transaminases Hypoalbuminemia CT abdomen/pelvis 09/09 revealed abdominal ascites, esophageal/gastric varices. Splenomegaly. Shrunken liver. Small splenic hematoma EGD 09/12 revealed LA class B esophagitis, gastric erythema of the antrum gastric and duodenal bulb/second portion, portal hypertension/gastropathy. Patient is on pantoprazole 40 mg po daily/home medications pantoprazole Diet as tolerated Outpatient evaluation for positive hepatitis C genotype 1A for treatment Recheck liver function tests as clinically indicated. Stable Will need outpatient follow up with GI Continue lactulose 3 times daily Add Ensure 3 times daily. Essential hypertension Currently on amlodipine 10 mg daily, KAMILAH inhibitor which will be held due to acute kidney injury, hydralazine 25 every 8 hours, furosemide 40 mg daily and Spironolactone 25 mg daily. Tobaccoism Nasal cannula to maintain saturations greater than equal to 92% Incentive spirometry while awake Tobacco cessation self-education booklet will be provided Acute kidney injury Avoid nephrotoxic medications. KAMILAH inhibitor has been held Monitor urine output Accurate I's and O Macrocytic anemia Thrombocytopenia Coagulopathic state secondary to underlying liver disease S/P Vitamin K Received 4 pack platelets since admission along with 4 FFP, 2 liquid plasma, 2 cryoprecipitate. Chronic low back pain ARTEMIO 1:320 nucleolar positive with positive double-stranded DNA Nonspecific ARTEMIO findings. Not at 1: 640 Possibly also secondary to underlying liver disease/hepatitis dsdna was positive. Will need outpatient rheumatology workup PT evaluate and treat Prophylax -GI -pantoprazole -DVT -SCD/holding pharmacological prophylaxis in light of acute subdural hematoma Discharge Planning Discharged to SNF once arrangements are made Problem Qualifiers (1) Liver cirrhosis: (2) Spleen hematoma: Qualified Codes: S36.029A - Unspecified contusion of spleen, initial encounter (3) Ascites: Qualified Codes: R18.8 - Other ascites (4) HTN (hypertension): Qualified Codes: I10 - Essential (primary) hypertension (5) Fall: Qualified Codes: W19.XXXA - Unspecified fall, initial encounter (6) Left shoulder pain: Qualified Codes: M25.512 - Pain in left shoulder (7) Diarrhea: Qualified Codes: R19.7 - Diarrhea, unspecified Lamont Ny MD Oct 05, 2017 15:38
[2017-10-05 15:47] LABS: BACTERIA, URINE OCC /hpf; BILIRUBIN, URINE NEG (NEG); BLOOD, URINE MOD (NEG); GLUCOSE,URINE NEG (NEG); KETONE, URINE NEG (NEG); NITRITE,URINE NEG (NEG); PH, URINE 5.5 (5.0-8.5); SQUAMOUS EPITHELIAL CELL URINE <1 /hpf (0-5); URINE COLOR DARK-YELLOW (YELLW/STRAW); URINE LEUKOCYTE ESTERASE LARGE (NEG); WHITE BLOOD CELL CLUMPS MANY
[2017-10-05] MEDS: MELATONIN 5 MG TAB PO PRN (21:08)
[2017-10-06] VITALS: BP 125/60; PULSE 89; RESP 19; TEMP 97.9; O2SAT 97
[2017-10-06] MEDS: CHLORHEXIDINE GLUCONATE 2 % 1 PACK (2 CLOTHS) TOP SCH (04:00)
[2017-10-06 05:15] VITALS: BP 119/69; PULSE 80; RESP 19; TEMP 98; O2SAT 98
[2017-10-06] MEDS: hydrALAZINE HCL 25 MG TAB PO SCH ×3 (06:00→21:26)
[2017-10-06] MEDS: metroNIDAZOLE 500 MG TAB PO SCH ×3 (06:00→23:34)
[2017-10-06] MEDS: PIPERACIL-TAZO 4.5 GM PREMIX 100 ML IV SCH ×4 (06:03→23:34)
[2017-10-06 08:00] VITALS: BP 122/68; PULSE 81; RESP 20; TEMP 98.8; O2SAT 96
[2017-10-06] MEDS: DOCUSATE SODIUM 50 MG/SENNA 8.6 MG TAB PO SCH ×2 (09:00→21:00)
[2017-10-06] MEDS: ARTIFICIAL TEARS OPTH SOLN 15 ML BTL EACH EYE SCH ×3 (09:00→18:00)
[2017-10-06] MEDS: MULTIVITAMIN TAB PO SCH (10:13)
[2017-10-06] MEDS: PANTOPRAZOLE SOD 40 MG DELAYED RELEASE TAB PO SCH (10:13)
[2017-10-06] MEDS: LACTULOSE SYRUP 20 GM/30 ML CUP PO SCH ×3 (10:13→18:28)
[2017-10-06] MEDS: FUROSEMIDE 40 MG TAB PO SCH (10:14)
[2017-10-06] MEDS: SPIRONOLACTONE 25 MG TAB PO SCH (10:14)
[2017-10-06] MEDS: THIAMINE HCL 100 MG TAB PO SCH (10:14)
[2017-10-06] MEDS: SODIUM CHLORIDE 0.9% FLUSH 10 ML FLUSH IV FLUSH SCH ×2 (10:15→21:26)
[2017-10-06 12:00] VITALS: BP 119/70; PULSE 73; RESP 19; TEMP 98.6; O2SAT 99
--- NOTE | 2017-10-06 13:25 | HHI.PR ---
Subjective Remarks Patient reported some headache Reported loose stool as well Blood culture came back positive for E. coli suspect ESBL, ultrasound of the liver without significant ascites, appreciate ID assistance, continue Zosyn and Rebel and yl Objective Vitals Vital Signs Date Time Temp Pulse Resp B/P (MAP) Pulse Ox O2 Delivery O2 Flow Rate FiO2 10/06/17 12:00 98.6 73 19 119/70 (86) 99 10/06/17 08:00 98.8 81 20 122/68 (86) 96 10/06/17 05:15 98.0 80 19 119/69 (86) 98 10/06/17 00:00 97.9 89 19 125/60 (81) 97 10/05/17 20:50 98.0 91 18 128/58 (81) 98 10/05/17 16:00 98.9 83 18 129/73 (91) 99 I/O 10/05/17 10/05/17 10/05/17 10/06/17 10/06/17 10/06/17 07:00 15:00 23:00 07:00 15:00 23:00 Intake Total 850 ml 800 ml Balance 850 ml 800 ml Intake Oral 850 ml 800 ml # Voids 2 1 6 # Bowel Movements 1 0 Result Diagram: 10/05/17 0629 10/05/17 06 Objective Remarks GENERAL: This is a well-nourished, well-developed patient, in no apparent distress. CARDIOVASCULAR: RRR, 3/6 sys M RESPIRATORY: Fair air entry bilaterally. No W, R, or R GASTROINTESTINAL: Abdomen soft, non-tender, nondistended. Positive bowel sounds MUSCULOSKELETAL: Extremities without clubbing, cyanosis, or edema. Pedal pulses appreciated NEUROLOGICAL: Awake and alert. Moves all extremity. Normal speech.no focal neurological deficit Procedures None A/P Problem List: (1) Liver cirrhosis ICD Code: K74.60 - Unspecified cirrhosis of liver (2) Spleen hematoma ICD Code: S36.029A - Unspecified contusion of spleen, initial encounter Status: Acute (3) Hyperbilirubinemia ICD Code: E80.6 - Other disorders of bilirubin metabolism Status: Acute (4) Splenomegaly ICD Code: R16.1 - Splenomegaly, not elsewhere classified Status: Chronic (5) Ascites ICD Code: R18.8 - Other ascites Status: Chronic (6) Hypokalemia ICD Code: E87.6 - Hypokalemia Status: Resolved (7) Macrocytic anemia ICD Code: D53.9 - Nutritional anemia, unspecified Status: Chronic (8) HTN (hypertension) ICD Code: I10 - Essential (primary) hypertension Status: Chronic (9) Fall ICD Code: W19.XXXA - Unspecified fall, initial encounter Status: Acute (10) Left shoulder pain ICD Code: M25.512 - Pain in left shoulder (11) Edema of left lower extremity ICD Code: R60.0 - Localized edema (12) Hyperammonemia ICD Code: E72.20 - Disorder of urea cycle metabolism, unspecified (13) Coagulopathy ICD Code: D68.9 - Coagulation defect, unspecified Status: Acute (14) Diarrhea ICD Code: R19.7 - Diarrhea, unspecified Assessment and Plan 62-year-old male with coagulopathy from end-stage liver disease who had a subdural hematoma: 10/03: WBC trending down, continue current care, awaiting placement 10/04: Acute spiking fever since last night 102/101/100 0.4, I discussed with the nurse and I ordered stat chest x-ray, UA, blood culture, due to increased bilirubin I will order liver ultrasound, patient does not have signs of SBP need to rule out cholecystitis. I will start on Zosyn and give a dose of vancomycin, I will consult ID 10/05: No fever over 24 hours, continue antibiotic per ID recommendation, monitor clinically, CBC in the am 10/06: E. coli bacteremia, continue Zosyn and Flagyl, appreciate ID assistance, no fever reported overnight, monitor CBC, 2D echo, repeat blood culture, continue close monitoring for temperature A/P: Acute/subacute/chronic right subdural hematoma -3.5 cm thickness with compression of the sulci/gyri with the right to left subfalcine shift 4.7 mm History of EtOH use Chronic low back pain Acute encephalopathy CT brain 09/18 revealed acute, subacute and chronic components to right subdural hematoma. 3.5 cm. Compression of the sulci and gyri. Right frontal right-to- left subfalcine shift approximately [address] brain 09/23 - interval placement of a right frontal subdural drain. There has been replacement of some of the frontal subdural fluid with air. Otherwise little change in the configuration with persistent grossly stable subfalcine shift in lateral ventricular compression with effacement of hemispheric cortical sulci. Consultation neurosurgery noted recheck head CT in a.m. 09/25 Status post right bur hole by Dr. Carranza. Drain have since been removed. Patient was placed on levetiracetam 500 mg IV twice daily 7 days 2% saline started at 30 cc an hour. Discontinue on 09/24 Blood pressure control keep systolic blood pressure less than 140 Multivitamin, thiamine and folate daily 3 days has been completed Seizure precautions Pain medications as needed. EEG with mild to moderate encephalopathic changes. No epileptic activity Hepatitis C genotype 1A viral load positive LA class B esophagitis Portal hypertension Abdominal ascites Elevated transaminases Hypoalbuminemia CT abdomen/pelvis 09/09 revealed abdominal ascites, esophageal/gastric varices. Splenomegaly. Shrunken liver. Small splenic hematoma EGD 09/12 revealed LA class B esophagitis, gastric erythema of the antrum gastric and duodenal bulb/second portion, portal hypertension/gastropathy. Patient is on pantoprazole 40 mg po daily/home medications pantoprazole Diet as tolerated Outpatient evaluation for positive hepatitis C genotype 1A for treatment Recheck liver function tests as clinically indicated. Stable Will need outpatient follow up with GI Continue lactulose 3 times daily Add Ensure 3 times daily. Essential hypertension Currently on amlodipine 10 mg daily, KAMILAH inhibitor which will be held due to acute kidney injury, hydralazine 25 every 8 hours, furosemide 40 mg daily and Spironolactone 25 mg daily. Tobaccoism Nasal cannula to maintain saturations greater than equal to 92% Incentive spirometry while awake Tobacco cessation self-education booklet will be provided Acute kidney injury Avoid nephrotoxic medications. KAMILAH inhibitor has been held Monitor urine output Accurate I's and O Macrocytic anemia Thrombocytopenia Coagulopathic state secondary to underlying liver disease S/P Vitamin K Received 4 pack platelets since admission along with 4 FFP, 2 liquid plasma, 2 cryoprecipitate. Chronic low back pain ARTEMIO 1:320 nucleolar positive with positive double-stranded DNA Nonspecific ARTEMIO findings. Not at 1: 640 Possibly also secondary to underlying liver disease/hepatitis dsdna was positive. Will need outpatient rheumatology workup PT evaluate and treat Prophylax -GI -pantoprazole -DVT -SCD/holding pharmacological prophylaxis in light of acute subdural hematoma Discharge Planning Discharged to SNF once arrangements are made Problem Qualifiers (1) Liver cirrhosis: (2) Spleen hematoma: Qualified Codes: S36.029A - Unspecified contusion of spleen, initial encounter (3) Ascites: Qualified Codes: R18.8 - Other ascites (4) HTN (hypertension): Qualified Codes: I10 - Essential (primary) hypertension (5) Fall: Qualified Codes: W19.XXXA - Unspecified fall, initial encounter (6) Left shoulder pain: Qualified Codes: M25.512 - Pain in left shoulder (7) Diarrhea: Qualified Codes: R19.7 - Diarrhea, unspecified Lamont Ny MD Oct 06, 2017 13:25
--- NOTE | 2017-10-06 17:35 | RADRPT ---
EXAM DATE: 10/06/2017 5:29 PM EDT AGE/SEX: 62 years / Male INDICATIONS: Ascites. CLINICAL DATA: This is the patient's subsequent encounter. Patient reports that signs and symptoms h ave been present for 1 week and indicates a pain score of 1/10. MEDICAL/SURGICAL HISTORY: Hypertension. Melena. Arthritis. None. COMPARISON: No prior [facility] exams available for comparison. No external comparison. FINDINGS: Masses: None Fluid Collections: There is a small amount of free fluid adjacent to the liver. There is nodularity o f the contour of the liver suggesting cirrhosis. Other: Negative. CONCLUSION: 1. Small amount of ascites along the edge of the liver. 2. Nodularity of the hepatic contour suggesting cirrhosis. Electronically signed by: Manuel Dennis MD 10/06/2017 5:34 PM EDT
[2017-10-06 20:40] VITALS: BP 118/70; PULSE 80; RESP 19; TEMP 98.8; O2SAT 96
[2017-10-06] MEDS: ACETAMINOPHEN 500 MG CPLT PO PRN (23:36)
[2017-10-07] VITALS: BP 120/66; PULSE 88; RESP 19; TEMP 99; O2SAT 97
[2017-10-07 04:00] VITALS: BP 115/69; PULSE 80; RESP 19; TEMP 98.3; O2SAT 97
[2017-10-07] MEDS: CHLORHEXIDINE GLUCONATE 2 % 1 PACK (2 CLOTHS) TOP SCH (04:00)
[2017-10-07] MEDS: metroNIDAZOLE 500 MG TAB PO SCH (05:51)
[2017-10-07] MEDS: PIPERACIL-TAZO 4.5 GM PREMIX 100 ML IV SCH ×2 (05:51→10:00)
[2017-10-07] MEDS: hydrALAZINE HCL 25 MG TAB PO SCH ×3 (05:51→20:57)
[2017-10-07 07:46] VITALS: BP 118/59; PULSE 77; RESP 20; TEMP 97.8; O2SAT 97
[2017-10-07] MEDS: DOCUSATE SODIUM 50 MG/SENNA 8.6 MG TAB PO SCH ×2 (10:00→20:57)
[2017-10-07] MEDS: PANTOPRAZOLE SOD 40 MG DELAYED RELEASE TAB PO SCH (10:00)
[2017-10-07] MEDS: MULTIVITAMIN TAB PO SCH (10:00)
[2017-10-07] MEDS: FUROSEMIDE 40 MG TAB PO SCH (10:00)
[2017-10-07] MEDS: SPIRONOLACTONE 25 MG TAB PO SCH (10:00)
[2017-10-07] MEDS: SODIUM CHLORIDE 0.9% FLUSH 10 ML FLUSH IV FLUSH SCH ×2 (10:01→20:58)
[2017-10-07] MEDS: THIAMINE HCL 100 MG TAB PO SCH (10:01)
[2017-10-07] MEDS: LACTULOSE SYRUP 20 GM/30 ML CUP PO SCH ×3 (10:01→18:36)
[2017-10-07] MEDS: ARTIFICIAL TEARS OPTH SOLN 15 ML BTL EACH EYE SCH ×3 (10:02→18:38)
--- NOTE | 2017-10-07 10:54 | HHI.PR ---
Objective Vitals Vital Signs Date Time Temp Pulse Resp B/P (MAP) Pulse Ox O2 Delivery O2 Flow Rate FiO2 10/07/17 07:46 97.8 77 20 118/59 (78) 97 10/07/17 04:00 98.3 80 19 115/69 (84) 97 10/07/17 00:00 99.0 88 19 120/66 (84) 97 10/06/17 20:40 98.8 80 19 118/70 (86) 96 10/06/17 12:00 98.6 73 19 119/70 (86) 99 10/06/17 11:13 17 I/O 10/06/17 10/06/17 10/06/17 10/07/17 10/07/17 10/07/17 07:00 15:00 23:00 07:00 15:00 23:00 Intake Total 800 ml 900 ml 850 ml Output Total 650 ml 650 ml Balance 800 ml 250 ml 200 ml Intake Oral 800 ml 900 ml 850 ml Output Urine Total 650 ml 650 ml # Voids 6 4 4 # Bowel Movements 0 2 2 Result Diagram: 10/05/1762810/05/17628 Objective Remarks GENERAL: This is a well-nourished, well-developed patient, in no apparent distress. CARDIOVASCULAR: RRR, 3/6 sys M RESPIRATORY: Fair air entry bilaterally. No W, R, or R GASTROINTESTINAL: Abdomen soft, non-tender, nondistended. Positive bowel sounds MUSCULOSKELETAL: Extremities without clubbing, cyanosis, or edema. Pedal pulses appreciated NEUROLOGICAL: Awake and alert. Moves all extremity. Normal speech.no focal neurological deficit Procedures None A/P Problem List: (1) Liver cirrhosis ICD Code: K74.60 - Unspecified cirrhosis of liver (2) Spleen hematoma ICD Code: S36.029A - Unspecified contusion of spleen, initial encounter Status: Acute (3) Hyperbilirubinemia ICD Code: E80.6 - Other disorders of bilirubin metabolism Status: Acute (4) Splenomegaly ICD Code: R16.1 - Splenomegaly, not elsewhere classified Status: Chronic (5) Ascites ICD Code: R18.8 - Other ascites Status: Chronic (6) Hypokalemia ICD Code: E87.6 - Hypokalemia Status: Resolved (7) Macrocytic anemia ICD Code: D53.9 - Nutritional anemia, unspecified Status: Chronic (8) HTN (hypertension) ICD Code: I10 - Essential (primary) hypertension Status: Chronic (9) Fall ICD Code: W19.XXXA - Unspecified fall, initial encounter Status: Acute (10) Left shoulder pain ICD Code: M25.512 - Pain in left shoulder (11) Edema of left lower extremity ICD Code: R60.0 - Localized edema (12) Hyperammonemia ICD Code: E72.20 - Disorder of urea cycle metabolism, unspecified (13) Coagulopathy ICD Code: D68.9 - Coagulation defect, unspecified Status: Acute (14) Diarrhea ICD Code: R19.7 - Diarrhea, unspecified Assessment and Plan 62-year-old male with coagulopathy from end-stage liver disease who had a subdural hematoma: 10/03: WBC trending down, continue current care, awaiting placement 10/04: Acute spiking fever since last night 102/101/100 0.4, I discussed with the nurse and I ordered stat chest x-ray, UA, blood culture, due to increased bilirubin I will order liver ultrasound, patient does not have signs of SBP need to rule out cholecystitis. I will start on Zosyn and give a dose of vancomycin, I will consult ID 10/05: No fever over 24 hours, continue antibiotic per ID recommendation, monitor clinically, CBC in the am 10/06: E. coli bacteremia, continue Zosyn and Flagyl, appreciate ID assistance, no fever reported overnight, monitor CBC, 2D echo, repeat blood culture, continue close monitoring for temperature A/P: Acute/subacute/chronic right subdural hematoma -3.5 cm thickness with compression of the sulci/gyri with the right to left subfalcine shift 4.7 mm History of EtOH use Chronic low back pain Acute encephalopathy CT brain 09/18 revealed acute, subacute and chronic components to right subdural hematoma. 3.5 cm. Compression of the sulci and gyri. Right frontal right-to- left subfalcine shift approximately [address] brain 09/23 - interval placement of a right frontal subdural drain. There has been replacement of some of the frontal subdural fluid with air. Otherwise little change in the configuration with persistent grossly stable subfalcine shift in lateral ventricular compression with effacement of hemispheric cortical sulci. Consultation neurosurgery noted recheck head CT in a.m. 09/25 Status post right bur hole by Dr. Carranza. Drain have since been removed. Patient was placed on levetiracetam 500 mg IV twice daily 7 days 2% saline started at 30 cc an hour. Discontinue on 09/24 Blood pressure control keep systolic blood pressure less than 140 Multivitamin, thiamine and folate daily 3 days has been completed Seizure precautions Pain medications as needed. EEG with mild to moderate encephalopathic changes. No epileptic activity Hepatitis C genotype 1A viral load positive LA class B esophagitis Portal hypertension Abdominal ascites Elevated transaminases Hypoalbuminemia CT abdomen/pelvis 09/09 revealed abdominal ascites, esophageal/gastric varices. Splenomegaly. Shrunken liver. Small splenic hematoma EGD 09/12 revealed LA class B esophagitis, gastric erythema of the antrum gastric and duodenal bulb/second portion, portal hypertension/gastropathy. Patient is on pantoprazole 40 mg po daily/home medications pantoprazole Diet as tolerated Outpatient evaluation for positive hepatitis C genotype 1A for treatment Recheck liver function tests as clinically indicated. Stable Will need outpatient follow up with GI Continue lactulose 3 times daily Add Ensure 3 times daily. Essential hypertension Currently on amlodipine 10 mg daily, KAMILAH inhibitor which will be held due to acute kidney injury, hydralazine 25 every 8 hours, furosemide 40 mg daily and Spironolactone 25 mg daily. Tobaccoism Nasal cannula to maintain saturations greater than equal to 92% Incentive spirometry while awake Tobacco cessation self-education booklet will be provided Acute kidney injury Avoid nephrotoxic medications. KAMILAH inhibitor has been held Monitor urine output Accurate I's and O Macrocytic anemia Thrombocytopenia Coagulopathic state secondary to underlying liver disease S/P Vitamin K Received 4 pack platelets since admission along with 4 FFP, 2 liquid plasma, 2 cryoprecipitate. Chronic low back pain ARTEMIO 1:320 nucleolar positive with positive double-stranded DNA Nonspecific ARTEMIO findings. Not at 1: 640 Possibly also secondary to underlying liver disease/hepatitis dsdna was positive. Will need outpatient rheumatology workup PT evaluate and treat Prophylax -GI -pantoprazole -DVT -SCD/holding pharmacological prophylaxis in light of acute subdural hematoma Discharge Planning Discharged to SNF once arrangements are made Problem Qualifiers (1) Liver cirrhosis: (2) Spleen hematoma: Qualified Codes: S36.029A - Unspecified contusion of spleen, initial encounter (3) Ascites: Qualified Codes: R18.8 - Other ascites (4) HTN (hypertension): Qualified Codes: I10 - Essential (primary) hypertension (5) Fall: Qualified Codes: W19.XXXA - Unspecified fall, initial encounter (6) Left shoulder pain: Qualified Codes: M25.512 - Pain in left shoulder (7) Diarrhea: Qualified Codes: R19.7 - Diarrhea, unspecified Lamont Ny MD Oct 07, 2017 10:54
[2017-10-07 11:55] VITALS: BP 114/55; PULSE 89; RESP 20; TEMP 98; O2SAT 98
--- NOTE | 2017-10-07 13:08 | HHI.PR ---
Subjective Remarks "I have a headache and neck pain " Patient afebrile repeated blood cultures still negative Objective Vitals Vital Signs Date Time Temp Pulse Resp B/P (MAP) Pulse Ox O2 Delivery O2 Flow Rate FiO2 10/07/17 11:55 98.0 89 20 114/55 (74) 98 10/07/17 07:46 97.8 77 20 118/59 (78) 97 10/07/17 04:00 98.3 80 19 115/69 (84) 97 10/07/17 00:00 99.0 88 19 120/66 (84) 97 10/06/17 20:40 98.8 80 19 118/70 (86) 96 I/O 10/06/17 10/06/17 10/06/17 10/07/17 10/07/17 10/07/17 07:00 15:00 23:00 07:00 15:00 23:00 Intake Total 800 ml 900 ml 850 ml Output Total 650 ml 650 ml Balance 800 ml 250 ml 200 ml Intake Oral 800 ml 900 ml 850 ml Output Urine Total 650 ml 650 ml # Voids 6 4 4 # Bowel Movements 0 2 2 Result Diagram: 10/05/1762810/05/17628 Objective Remarks GENERAL: This is a well-nourished, well-developed patient, in no apparent distress. CARDIOVASCULAR: RRR, 3/6 sys M RESPIRATORY: Fair air entry bilaterally. No W, R, or R GASTROINTESTINAL: Abdomen soft, non-tender, nondistended. Positive bowel sounds MUSCULOSKELETAL: Extremities without clubbing, cyanosis, or edema. Pedal pulses appreciated NEUROLOGICAL: Awake and alert. Moves all extremity. Normal speech.no focal neurological deficit Procedures None A/P Problem List: (1) Liver cirrhosis ICD Code: K74.60 - Unspecified cirrhosis of liver (2) Spleen hematoma ICD Code: S36.029A - Unspecified contusion of spleen, initial encounter Status: Acute (3) Hyperbilirubinemia ICD Code: E80.6 - Other disorders of bilirubin metabolism Status: Acute (4) Splenomegaly ICD Code: R16.1 - Splenomegaly, not elsewhere classified Status: Chronic (5) Ascites ICD Code: R18.8 - Other ascites Status: Chronic (6) Hypokalemia ICD Code: E87.6 - Hypokalemia Status: Resolved (7) Macrocytic anemia ICD Code: D53.9 - Nutritional anemia, unspecified Status: Chronic (8) HTN (hypertension) ICD Code: I10 - Essential (primary) hypertension Status: Chronic (9) Fall ICD Code: W19.XXXA - Unspecified fall, initial encounter Status: Acute (10) Left shoulder pain ICD Code: M25.512 - Pain in left shoulder (11) Edema of left lower extremity ICD Code: R60.0 - Localized edema (12) Hyperammonemia ICD Code: E72.20 - Disorder of urea cycle metabolism, unspecified (13) Coagulopathy ICD Code: D68.9 - Coagulation defect, unspecified Status: Acute (14) Diarrhea ICD Code: R19.7 - Diarrhea, unspecified Assessment and Plan 62-year-old male with coagulopathy from end-stage liver disease who had a subdural hematoma: 10/03: WBC trending down, continue current care, awaiting placement 10/04: Acute spiking fever since last night 102/101/100 0.4, I discussed with the nurse and I ordered stat chest x-ray, UA, blood culture, due to increased bilirubin I will order liver ultrasound, patient does not have signs of SBP need to rule out cholecystitis. I will start on Zosyn and give a dose of vancomycin, I will consult ID 10/05: No fever over 24 hours, continue antibiotic per ID recommendation, monitor clinically, CBC in the am 10/06: E. coli bacteremia, continue Zosyn and Flagyl, appreciate ID assistance, no fever reported overnight, monitor CBC, 2D echo, repeat blood culture, continue close monitoring for temperature 10/07: Repeat blood cultures still negative second day, continue antibiotic per ID , afebrile overnight, still on O2 A/P: Acute/subacute/chronic right subdural hematoma -3.5 cm thickness with compression of the sulci/gyri with the right to left subfalcine shift 4.7 mm History of EtOH use Chronic low back pain Acute encephalopathy CT brain 09/18 revealed acute, subacute and chronic components to right subdural hematoma. 3.5 cm. Compression of the sulci and gyri. Right frontal right-to- left subfalcine shift approximately [address] brain 09/23 - interval placement of a right frontal subdural drain. There has been replacement of some of the frontal subdural fluid with air. Otherwise little change in the configuration with persistent grossly stable subfalcine shift in lateral ventricular compression with effacement of hemispheric cortical sulci. Consultation neurosurgery noted recheck head CT in a.m. 09/25 Status post right bur hole by Dr. Carranza. Drain have since been removed. Patient was placed on levetiracetam 500 mg IV twice daily 7 days 2% saline started at 30 cc an hour. Discontinue on 09/24 Blood pressure control keep systolic blood pressure less than 140 Multivitamin, thiamine and folate daily 3 days has been completed Seizure precautions Pain medications as needed. EEG with mild to moderate encephalopathic changes. No epileptic activity Hepatitis C genotype 1A viral load positive LA class B esophagitis Portal hypertension Abdominal ascites Elevated transaminases Hypoalbuminemia CT abdomen/pelvis 09/09 revealed abdominal ascites, esophageal/gastric varices. Splenomegaly. Shrunken liver. Small splenic hematoma EGD 09/12 revealed LA class B esophagitis, gastric erythema of the antrum gastric and duodenal bulb/second portion, portal hypertension/gastropathy. Patient is on pantoprazole 40 mg po daily/home medications pantoprazole Diet as tolerated Outpatient evaluation for positive hepatitis C genotype 1A for treatment Recheck liver function tests as clinically indicated. Stable Will need outpatient follow up with GI Continue lactulose 3 times daily Add Ensure 3 times daily. Essential hypertension Currently on amlodipine 10 mg daily, KAMILAH inhibitor which will be held due to acute kidney injury, hydralazine 25 every 8 hours, furosemide 40 mg daily and Spironolactone 25 mg daily. Tobaccoism Nasal cannula to maintain saturations greater than equal to 92% Incentive spirometry while awake Tobacco cessation self-education booklet will be provided Acute kidney injury Avoid nephrotoxic medications. KAMILAH inhibitor has been held Monitor urine output Accurate I's and O Macrocytic anemia Thrombocytopenia Coagulopathic state secondary to underlying liver disease S/P Vitamin K Received 4 pack platelets since admission along with 4 FFP, 2 liquid plasma, 2 cryoprecipitate. Chronic low back pain ARTEMIO 1:320 nucleolar positive with positive double-stranded DNA Nonspecific ARTEMIO findings. Not at 1: 640 Possibly also secondary to underlying liver disease/hepatitis dsdna was positive. Will need outpatient rheumatology workup PT evaluate and treat Prophylax -GI -pantoprazole -DVT -SCD/holding pharmacological prophylaxis in light of acute subdural hematoma Discharge Planning Discharged to SNF once arrangements are made Problem Qualifiers (1) Liver cirrhosis: (2) Spleen hematoma: Qualified Codes: S36.029A - Unspecified contusion of spleen, initial encounter (3) Ascites: Qualified Codes: R18.8 - Other ascites (4) HTN (hypertension): Qualified Codes: I10 - Essential (primary) hypertension (5) Fall: Qualified Codes: W19.XXXA - Unspecified fall, initial encounter (6) Left shoulder pain: Qualified Codes: M25.512 - Pain in left shoulder (7) Diarrhea: Qualified Codes: R19.7 - Diarrhea, unspecified Lamont Ny MD Oct 07, 2017 13:08
--- NOTE | 2017-10-07 13:46 | HHI.IDPN ---
Subjective Subjective Remarks Patient is a 62-year-old male, with known history of significant alcohol use, presented to the hospital after a fall. He was complaining of some left-sided chest pain, as well as pain on the left side of his trunk including shoulder and abdomen. He had a CT of the abdomen and pelvis which revealed portal gastropathy, ascites, liver cirrhosis, and a possible subcapsular splenic hematoma. Patient was seen by GI, and upper endoscopy was done which showed esophagitis, gastritis, portal hypertensive gastropathy, and some inflammation of the duodenum. On September 18, he was transferred to the ICU for acute onset of left-sided weakness. CT of the head showed subdural hematoma. He had placement of a bur hole, on 09/20, and this was removed on 09/25. His neurological status improved, and he still has some residual left-sided weakness. Patient was transitioned to the medical floor, and starting yesterday he developed a fever of 102. He still febrile today, and so infectious disease consultation has been requested to evaluate the patient. Patient denies any significant coughing or any chest pain or shortness of breath. He has not had any nausea or vomiting, no abdominal pain. He has had on and off diarrhea, but he is on lactulose. He has no Hoff catheter, and he denies any problem urinating. Patient has no central line, and only has peripheral IV. Patient was started on antibiotics and is on IV Zosyn, and has received a dose of IV vancomycin. His chest x-ray is normal. He had 2 blood cultures done today. Patient currently feels weak. He states he has done some ambulation. Patient has not had any fever since admission. He has not been on any antibiotics. Infectious disease consultation has been requested to evaluate the patient with no fevers. Notes reviewed Afebrile BC with E coli UC negative - sent after he had ABx UA abnormal Patient states he cannot control his urination No dysuria No abdominal pain or back pain No N/V No rash Has diarrhea but is on lactulose. Antibiotics Zosyn IV Current Medications Medications (Trade) Dose Ordered Sig/Tosin Route Start Time Stop Time Status Last Admin (NS Flush) 2 ml UNSCH PRN IV FLUSH 09/09/17 09:15 09/24/17 21:30 (NS Flush) 2 ml BID IV FLUSH 09/09/17 21:00 6/4/18 10:01 (Zofran Inj) 4 mg Q6H PRN IVP 09/09/17 09:15 09/28/17 21:48 (Narcan Inj) 0.4 mg UNSCH PRN IV PUSH 09/09/17 09:15 (Toña-Colace) 1 tab BID PO 09/09/17 21:00 10/07/17 10:00 (Milk Of Magnesia Liq) 30 ml Q12H PRN PO 09/09/17 09:15 10/01/17 02:38 (Senokot) 17.2 mg Q12H PRN PO 09/09/17 09:15 (Dulcolax Supp) 10 mg DAILY PRN RECTAL 09/09/17 09:15 (Romazicon Inj) 0.2 mg Q1M PRN IV PUSH 09/09/17 20:00 (Ativan) 1 mg Q4H PRN PO 09/09/17 20:00 (Ativan Inj) 1 mg Q4H PRN IV PUSH 09/09/17 20:00 (Ativan) 2 mg Q2H PRN PO 09/09/17 20:00 (Ativan Inj) 2 mg Q2H PRN IV PUSH 09/09/17 20:00 (Ativan Inj) 2 mg Q1H PRN IV PUSH 09/09/17 20:00 (Ativan Inj) 2 mg Q15M PRN IV PUSH 09/09/17 20:00 (Aldactone) 25 mg DAILY PO 09/09/17 20:00 10/07/17 10:00 (Catapres) 0.1 mg Q6H PRN PO 09/10/17 12:45 10/03/17 16:33 (Lasix) 40 mg DAILY PO 09/15/17 13:30 10/07/17 10:00 (Trandate Inj) 10 mg Q1HR PRN IV PUSH 09/18/17 14:15 09/21/17 03:30 Nicardipine HCl 25 mg/Sodium Chloride 250 ml @ 50 mls/hr TITRATE PRN IV 09/18/17 14:15 (Tears Naturale Opth Soln) 1 drop TID EACH EYE 09/18/17 18:00 10/05/17 09:00 (Zofran Odt) 4 mg Q6H PRN PO 09/18/17 14:45 (Albuterol Neb) 2.5 mg Q2HR NEB PRN INH 09/18/17 14:45 09/28/17 12:28 ([facility] [place] [facility]) 1 Q361D XX 09/18/17 14:45 09/18/17 14:45 (Chlorhexidine 2% Cloth) Taper DAILY@04 TOP 09/19/17 04:00 09/15/18 03:59 09/23/17 04:00 (Chlorhexidine 2% Cloth) 3 pack UNSCH PRN TOP 09/18/17 14:45 (Norvasc) 10 mg DAILY PO 09/22/17 09:00 10/07/17 10:00 (Apresoline Inj) 10 mg Q1HR PRN IV PUSH 09/21/17 12:45 (Vasotec Inj) 1.25 mg Q8H PRN IV PUSH 09/21/17 12:45 10/03/17 16:33 Clevidipine 50 ml @ 2 mls/hr TITRATE PRN IV 09/21/17 13:00 (Protonix) 40 mg DAILY PO 09/22/17 09:00 10/07/17 10:00 (Apresoline) 25 mg Q8HR PO 09/21/17 15:45 10/07/17 05:51 (Vitamin B1) 100 mg DAILY PO 09/25/17 09:00 10/07/17 10:01 (Theragran) 1 tab DAILY PO 09/25/17 09:00 10/07/17 10:00 (Tylenol) 500 mg Q4H PRN PO 09/28/17 10:45 10/06/17 23:36 (Melatonin) 5 mg HS PRN PO 09/30/17 21:00 10/05/17 21:08 (Roxicodone) 5 mg Q6H PRN PO 10/01/17 11:15 10/06/17 10:13 (Lactulose Liq) 30 ml TID PO 10/01/17 13:00 10/07/17 10:01 (Motrin) 400 mg Q6H PRN PO 10/04/17 12:00 10/04/17 12:39 (Flagyl) 500 mg Q8H PO 10/04/17 15:00 10/07/17 05:51 Piperacillin Sod/ Tazobactam Sod 100 ml @ 200 mls/hr Q6H IV 10/04/17 17:00 10/07/17 10:00 Lines Line sites with no evidence of infection. Past Medical History Past Medical History Peptic ulcer disease Anxiety Hypertension Substance abuse Past Surgical History None Allergies: Coded Allergies: No Known Allergies (Verified Adverse Reaction, Unknown, 09/09/17) Objective . Vital Signs Date Time Temp Pulse Resp B/P (MAP) Pulse Ox O2 Delivery O2 Flow Rate FiO2 10/07/17 11:55 98.0 89 20 114/55 (74) 98 10/07/17 07:46 97.8 77 20 118/59 (78) 97 10/07/17 04:00 98.3 80 19 115/69 (84) 97 10/07/17 00:00 99.0 88 19 120/66 (84) 97 10/06/17 20:40 98.8 80 19 118/70 (86) 96 . Microbiology Date/Time Source Procedure Growth Status 10/05/17 16:18 Blood Peripheral Aerobic Blood Culture - Preliminary NO GROWTH IN 2 DAYS Resulted 10/05/17 16:18 Blood Peripheral Anaerobic Blood Culture - Preliminary NO GROWTH IN 2 DAYS Resulted 10/05/17 16:13 Blood Peripheral Aerobic Blood Culture - Preliminary NO GROWTH IN 2 DAYS Resulted 10/05/17 16:13 Blood Peripheral Anaerobic Blood Culture - Preliminary NO GROWTH IN 2 DAYS Resulted 10/04/17 13:44 Blood Peripheral Aerobic Blood Culture - Final Escherichia Coli Complete 10/04/17 13:44 Anaerobic Blood Culture - Final Escherichia Coli Complete 10/05/17 14:35 Urine Clean Catch Urine Culture - Final NO GROWTH IN 48 HOURS. Complete Imaging Last Impressions Liver Ultrasound 10/04/17 0000 Signed Impressions: CONCLUSION: 1. No specific abnormality is identified to explain the patient's fever. 2. However, there are persistent findings indicating cirrhosis with findings o f portal hypertension including splenomegaly, recanalized paraumbilical vein, a nd ascites. 3. There is hepatofugal flow in the main portal vein. Chest X-Ray 10/04/17 0000 Signed Impressions: CONCLUSION: No acute cardiopulmonary process. Head CT 09/23/17 0000 Signed Impressions: Service Date/Time: Saturday, September 23, 2017 09:47 - CONCLUSION: Interval placement of subdural drain Jairo Singh MD Abdomen/Pelvis CT 09/09/17 0833 Signed Impressions: Service Date/Time: Saturday, September 09, 2017 09:09 - CONCLUSION: Extensive ascites with cirrhosis or varicosities. Prominent spleen with possible tiny subcapsular hematoma series 2 image 30. Minimal induration anterior abdominal wall left side. Gilbert Lockett MD FACR Shoulder X-Ray 09/09/17 0000 Signed Impressions: Service Date/Time: Saturday, September 09, 2017 21:01 - CONCLUSION: 1. No acute bony abnormality. Vito Minor MD Lower Extremity Ultrasound 09/09/17 Signed Impressions: Service Date/Time: Saturday, September 09, 2017 21:41 - CONCLUSION: Normal examination. Henok Young MD Elbow X-Ray 09/09/17 Signed Impressions: Service Date/Time: Saturday, September 09, 2017 20:53 - CONCLUSION: 1. No acute bony abnormalities. Vito Minor MD Physical Exam GENERAL: Patient is a thin, well-developed male, awake and alert, NAD SKIN: Warm and dry. Has scattered petechial rash, and also with spider angiomatas. HEAD: Normocephalic. No temporal wasting, or tenderness. previous [place]strada hole sit dry with no drainage or redness EYES: [place] conjunctiva. No petechia or hemorrhage. Pupils equal, round and reactive to light. Extraocular movements full and intact. Has scleral icterus. No injection or drainage. EARS, NOSE AND THROAT: Nose without bleeding or purulent nasal discharge. No sinus tenderness. Mucous membranes pink and moist. No oral lesions noted. NECK: Trachea midline. Supple and not tender, no meningeal signs CARDIOVASCULAR: Regular rate and rhythm. No murmurs, rubs or gallops heard RESPIRATORY: Clear to auscultation. Breath sounds equal bilaterally. No rales , wheezing or rhonchi ABDOMEN: Soft, nondistended. Bowel sounds present and normoactive. No guarding. No rebound. No organomegaly. Has varicosities in upper abdomen. Mild discomfort in lower abdomen. EXTREMITIES: No clubbing, cyanosis, or edema. No joint effusion, has good ROM. No calf tenderness. NEUROLOGICAL: Awake and alert. Cranial nerves grossly intact. Has weakness L side about 4/5 PSYCHIATRIC: Normal affect, calm and cooperative. LINE: No evidence of infection Assessment & Plan Remarks E coli Sepsis due to UTI E. coli bacteremia per review of very gene there is no resistance markers like CTX M detected. Essentially no ESBL based on Verigene testing ETOH liver cirrhosis with portal HTN Recent fall, has SDH, drained Acute renal failure: likely prerenal, sepsis related. - creatinine rising again RECOMMENDATION Renal US to evaluate for hydronephrosis Follow C/S Bladder scan Change Abx to Rocephin Stop Zosyn Stop Flagyl Follow creatinine Monitor temps Monitor progress Raya Sequeira MD Oct 07, 2017 13:46
[2017-10-07] MEDS: cefTRIAXone INJ 2,000 MG in SODIUM CHLORIDE 0.9% INJ 100 ML IV SCH (14:46)
[2017-10-07 16:24] VITALS: BP 115/56; PULSE 88; RESP 20; TEMP 99.1; O2SAT 98
[2017-10-07] MEDS: MELATONIN 5 MG TAB PO PRN (18:43)
[2017-10-07 20:00] VITALS: BP 116/57; PULSE 83; RESP 18; TEMP 97.9; O2SAT 96
[2017-10-08] VITALS (7 sets, daily range): BP systolic 107–130; BP diastolic 56–62; PULSE 79–92; RESP 18–19; TEMP 97.6–98.5; O2SAT 96–98
[2017-10-08] MEDS: CHLORHEXIDINE GLUCONATE 2 % 1 PACK (2 CLOTHS) TOP SCH (04:00)
[2017-10-08] MEDS: hydrALAZINE HCL 25 MG TAB PO SCH ×3 (06:28→21:15)
[2017-10-08] MEDS: SPIRONOLACTONE 25 MG TAB PO SCH (09:01)
[2017-10-08] MEDS: ARTIFICIAL TEARS OPTH SOLN 15 ML BTL EACH EYE SCH ×3 (09:02→17:13)
[2017-10-08] MEDS: LACTULOSE SYRUP 20 GM/30 ML CUP PO SCH ×3 (09:02→17:13)
[2017-10-08] MEDS: PANTOPRAZOLE SOD 40 MG DELAYED RELEASE TAB PO SCH (09:02)
[2017-10-08] MEDS: THIAMINE HCL 100 MG TAB PO SCH (09:02)
[2017-10-08] MEDS: MULTIVITAMIN TAB PO SCH (09:02)
[2017-10-08] MEDS: DOCUSATE SODIUM 50 MG/SENNA 8.6 MG TAB PO SCH ×2 (09:02→21:00)
[2017-10-08] MEDS: FUROSEMIDE 40 MG TAB PO SCH (09:02)
[2017-10-08] MEDS: SODIUM CHLORIDE 0.9% FLUSH 10 ML FLUSH IV FLUSH SCH ×2 (09:03→21:15)
--- NOTE | 2017-10-08 10:24 | HHI.IDPN ---
Subjective Subjective Remarks Patient is a 62-year-old male, with known history of significant alcohol use, presented to the hospital after a fall. He was complaining of some left-sided chest pain, as well as pain on the left side of his trunk including shoulder and abdomen. He had a CT of the abdomen and pelvis which revealed portal gastropathy, ascites, liver cirrhosis, and a possible subcapsular splenic hematoma. Patient was seen by GI, and upper endoscopy was done which showed esophagitis, gastritis, portal hypertensive gastropathy, and some inflammation of the duodenum. On September 18, he was transferred to the ICU for acute onset of left-sided weakness. CT of the head showed subdural hematoma. He had placement of a bur hole, on 09/20, and this was removed on 09/25. His neurological status improved, and he still has some residual left-sided weakness. Patient was transitioned to the medical floor, and starting yesterday he developed a fever of 102. He still febrile today, and so infectious disease consultation has been requested to evaluate the patient. Patient denies any significant coughing or any chest pain or shortness of breath. He has not had any nausea or vomiting, no abdominal pain. He has had on and off diarrhea, but he is on lactulose. He has no Hoff catheter, and he denies any problem urinating. Patient has no central line, and only has peripheral IV. Patient was started on antibiotics and is on IV Zosyn, and has received a dose of IV vancomycin. His chest x-ray is normal. He had 2 blood cultures done today. Patient currently feels weak. He states he has done some ambulation. Patient has not had any fever since admission. He has not been on any antibiotics. Infectious disease consultation has been requested to evaluate the patient with no fevers. Notes reviewed Afebrile Bladder scan 12 ml he is incontinent, no dysuria BC with E coli UC negative - sent after he had ABx UA abnormal No abdominal pain or back pain No N/V No rash Renal US pending Antibiotics Rocephin Current Medications Medications (Trade) Dose Ordered Sig/Tosin Route Start Time Stop Time Status Last Admin (NS Flush) 2 ml UNSCH PRN IV FLUSH 09/09/17 09:15 09/24/17 21:30 (NS Flush) 2 ml BID IV FLUSH 09/09/17 21:00 10/08/17 09:03 (Zofran Inj) 4 mg Q6H PRN IVP 09/09/17 09:15 09/28/17 21:48 (Narcan Inj) 0.4 mg UNSCH PRN IV PUSH 09/09/17 09:15 (Toña-Colace) 1 tab BID PO 09/09/17 21:00 10/08/17 09:02 (Milk Of Magnesia Liq) 30 ml Q12H PRN PO 09/09/17 09:15 10/01/17 02:38 (Senokot) 17.2 mg Q12H PRN PO 09/09/17 09:15 (Dulcolax Supp) 10 mg DAILY PRN RECTAL 09/09/17 09:15 (Romazicon Inj) 0.2 mg Q1M PRN IV PUSH 09/09/17 20:00 (Ativan) 1 mg Q4H PRN PO 09/09/17 20:00 (Ativan Inj) 1 mg Q4H PRN IV PUSH 09/09/17 20:00 (Ativan) 2 mg Q2H PRN PO 09/09/17 20:00 (Ativan Inj) 2 mg Q2H PRN IV PUSH 09/09/17 20:00 (Ativan Inj) 2 mg Q1H PRN IV PUSH 09/09/17 20:00 (Ativan Inj) 2 mg Q15M PRN IV PUSH 09/09/17 20:00 (Aldactone) 25 mg DAILY PO 09/09/17 20:00 10/08/17 09:01 (Catapres) 0.1 mg Q6H PRN PO 09/10/17 12:45 10/03/17 16:33 (Lasix) 40 mg DAILY PO 09/15/17 13:30 10/08/17 09:02 (Trandate Inj) 10 mg Q1HR PRN IV PUSH 09/18/17 14:15 09/21/17 03:30 Nicardipine HCl 25 mg/Sodium Chloride 250 ml @ 50 mls/hr TITRATE PRN IV 09/18/17 14:15 (Tears Naturale Opth Soln) 1 drop TID EACH EYE 09/18/17 18:00 10/08/17 09:02 (Zofran Odt) 4 mg Q6H PRN PO 09/18/17 14:45 (Albuterol Neb) 2.5 mg Q2HR NEB PRN INH 09/18/17 14:45 09/28/17 12:28 ([facility] [place] [facility] [place]) 1 Q361D XX 09/18/17 14:45 09/18/17 14:45 (Chlorhexidine 2% Cloth) 3 pack Taper DAILY@04 TOP 09/19/17 04:00 09/15/18 03:59 09/23/17 04:00 (Chlorhexidine 2% Cloth) 3 pack UNSCH PRN TOP 09/18/17 14:45 (Norvasc) 10 mg DAILY PO 09/22/17 09:00 10/08/17 09:01 (Apresoline Inj) 10 mg Q1HR PRN IV PUSH 09/21/17 12:45 (Vasotec Inj) 1.25 mg Q8H PRN IV PUSH 09/21/17 12:45 10/03/17 16:33 Clevidipine 50 ml @ 2 mls/hr TITRATE PRN IV 09/21/17 13:00 (Protonix) 40 mg DAILY PO 09/22/17 09:00 10/08/17 09:02 (Apresoline) 25 mg Q8HR PO 09/21/17 15:45 10/08/17 06:28 (Vitamin B1) 100 mg DAILY PO 09/25/17 09:00 10/08/17 09:02 (Theragran) 1 tab DAILY PO 09/25/17 09:00 10/08/17 09:02 (Tylenol) 500 mg Q4H PRN PO 09/28/17 10:45 10/06/17 23:36 (Melatonin) 5 mg HS PRN PO 09/30/17 21:00 10/07/17 18:43 (Roxicodone) 5 mg Q6H PRN PO 10/01/17 11:15 10/07/17 18:36 (Lactulose Liq) 30 ml TID PO 10/01/17 13:00 10/08/17 09:02 (Motrin) 400 mg Q6H PRN PO 10/04/17 12:00 10/04/17 12:39 Ceftriaxone Sodium 2000 mg/ Sodium Chloride 100 ml @ 200 mls/hr Q24H IV 10/07/17 14:00 10/07/17 14:46 Lines Line sites with no evidence of infection. Past Medical History Past Medical History Peptic ulcer disease Anxiety Hypertension Substance abuse Past Surgical History None Allergies: Coded Allergies: No Known Allergies (Verified Adverse Reaction, Unknown, 09/09/17) Objective . Vital Signs Date Time Temp Pulse Resp B/P (MAP) Pulse Ox O2 Delivery O2 Flow Rate FiO2 10/08/17 10:16 96 10/08/17 07:59 98.0 80 18 116/56 (76) 96 10/08/17 04:00 97.9 87 18 122/60 (80) 96 10/08/17 00:00 98.5 79 18 125/60 (81) 98 10/07/17 20:00 97.9 83 18 116/57 (76) 96 10/07/17 16:24 99.1 88 20 115/56 (75) 98 10/07/17 11:55 98.0 89 20 114/55 (74) 98 10/08/17 10/08/17 10/09/17 15:00 23:00 07:00 Output Total 150 ml Balance -150 ml Output Urine Total 150 ml . Microbiology Date/Time Source Procedure Growth Status 10/05/17 16:18 Blood Peripheral Aerobic Blood Culture - Preliminary NO GROWTH IN 2 DAYS Resulted 10/05/17 16:18 Blood Peripheral Anaerobic Blood Culture - Preliminary NO GROWTH IN 2 DAYS Resulted 10/05/17 16:13 Blood Peripheral Aerobic Blood Culture - Preliminary NO GROWTH IN 2 DAYS Resulted 10/05/17 16:13 Blood Peripheral Anaerobic Blood Culture - Preliminary NO GROWTH IN 2 DAYS Resulted 10/05/17 14:35 Urine Clean Catch Urine Culture - Final NO GROWTH IN 48 HOURS. Complete Imaging Last Impressions Liver Ultrasound 10/04/17 0000 Signed Impressions: CONCLUSION: 1. No specific abnormality is identified to explain the patient's fever. 2. However, there are persistent findings indicating cirrhosis with findings o f portal hypertension including splenomegaly, recanalized paraumbilical vein, a nd ascites. 3. There is hepatofugal flow in the main portal vein. Chest X-Ray 10/04/17 0000 Signed Impressions: CONCLUSION: No acute cardiopulmonary process. Head CT 09/23/17 0000 Signed Impressions: Service Date/Time: Saturday, September 23, 2017 09:47 - CONCLUSION: Interval placement of subdural drain Jairo Singh MD Abdomen/Pelvis CT 09/09/17 0833 Signed Impressions: Service Date/Time: Saturday, September 09, 2017 09:09 - CONCLUSION: Extensive ascites with cirrhosis or varicosities. Prominent spleen with possible tiny subcapsular hematoma series 2 image 30. Minimal induration anterior abdominal wall left side. Gilbert Lockett MD FACR Shoulder X-Ray 09/09/17 0000 Signed Impressions: Service Date/Time: Saturday, September 09, 2017 21:01 - CONCLUSION: 1. No acute bony abnormality. Vito Minor MD Lower Extremity Ultrasound 09/09/17 0000 Signed Impressions: Service Date/Time: Saturday, September 09, 2017 21:41 - CONCLUSION: Normal examination. Henok Young MD Elbow X-Ray 09/09/17 Signed Impressions: Service Date/Time: Saturday, September 09, 2017 20:53 - CONCLUSION: 1. No acute bony abnormalities. Vito Minor MD Physical Exam GENERAL: Patient is a thin, well-developed male, awake and alert, NAD SKIN: Warm and dry. Has scattered petechial rash, and also with spider angiomatas. HEAD: Normocephalic. No temporal wasting, or tenderness. previous Beauty hole sit dry with no drainage or redness EYES: [place] conjunctiva. No petechia or hemorrhage. Pupils equal, round and reactive to light. Extraocular movements full and intact. Has scleral icterus. No injection or drainage. EARS, NOSE AND THROAT: Nose without bleeding or purulent nasal discharge. No sinus tenderness. Mucous membranes pink and moist. No oral lesions noted. NECK: Trachea midline. Supple and not tender, no meningeal signs CARDIOVASCULAR: Regular rate and rhythm. No murmurs, rubs or gallops heard RESPIRATORY: Clear to auscultation. Breath sounds equal bilaterally. No rales , wheezing or rhonchi ABDOMEN: Soft, nondistended. Bowel sounds present and normoactive. No guarding. No rebound. No organomegaly. Has varicosities in upper abdomen. Mild discomfort in lower abdomen. EXTREMITIES: No clubbing, cyanosis, or edema. No joint effusion, has good ROM. No calf tenderness. NEUROLOGICAL: Awake and alert. Cranial nerves grossly intact. Has weakness L side about 4/5 PSYCHIATRIC: Normal affect, calm and cooperative. LINE: No evidence of infection Assessment & Plan Remarks E coli Sepsis due to UTI E. coli bacteremia per review of very gene there is no resistance markers like CTX M detected. Essentially no ESBL based on Verigene testing ETOH liver cirrhosis with portal HTN Recent fall, has SDH, drained Acute renal failure: likely prerenal, sepsis related. - creatinine rising again RECOMMENDATION Renal US to evaluate for hydronephrosis Continue Rocephin Follow creatinine Monitor temps Monitor progress Raya Sequeira MD Oct 08, 2017 10:24
--- NOTE | 2017-10-08 11:41 | RADRPT ---
EXAM DATE: 10/08/2017 11:14 AM EDT AGE/SEX: 62 years / Male INDICATIONS: Urinary tract infection. Evaluate for obstruction. CLINICAL DATA: This is the patient's subsequent encounter. Patient reports that signs and symptoms h ave been present for 1 day and indicates a pain score of 3/10. MEDICAL/SURGICAL HISTORY: . Hypertension. Melena. Arthritis. None. COMPARISON: [facility] – [place], CT ABDOMEN & PELVIS W CONTRAST, 09/09/2017. . No external comparison. MEASUREMENTS: Right Kidney:__10.9 x 5.4 x 5.7 cm cm Left Kidney:__10.9 x 5.3 x 5.6 cm cm FINDINGS: Right Kidney: No hydronephrosis, stone, or mass is visualized. Left Kidney: No hydronephrosis, stone, or mass is visualized. Bladder: Within normal limits given the degree of distension. Other: There is a small volume of free fluid within the abdomen and pelvis. Visualized liver demonstr ates changes indicating cirrhosis. CONCLUSION: 1. There are no findings to indicate obstruction. Kidneys have a normal appearance. 2. Small volume of ascites in this patient with cirrhosis. Electronically signed by: Jairo Carter MD 10/08/2017 11:40 AM EDT
[2017-10-08 12:53] LABS: AUTOMATED NEUTROPHIL # 9.1 TH/MM3 (1.8-7.7); BASOPHIL % 0.3 % (0.0-2.0); EOSINOPHIL % 0.4 % (0.0-4.0); HEMATOCRIT 31.9 % (39.0-51.0); HEMOGLOBIN 10.9 GM/DL (13.0-17.0); LYMPH % 10.2 % (9.0-44.0); LYMPHOCYTE # 1.2 TH/MM3 (1.0-4.8); MEAN CELL VOLUME 101.9 FL (80.0-100.0); MEAN CORPUSCULAR HGB CONC 34.3 % (32.0-36.0); MEAN PLATELET VOLUME 8.7 FL (7.0-11.0); MONO % 11.9 % (0.0-8.0); MONOCYTE # 1.4 TH/MM3 (0-0.9); NEUT % 77.2 % (16.0-70.0); PLATELET COUNT 80 TH/MM3 (150-450); RED BLOOD COUNT 3.13 MIL/MM3 (4.50-5.90); WHITE BLOOD COUNT 11.8 TH/MM3 (4.0-11.0)
--- NOTE | 2017-10-08 12:53 | HHI.PR ---
Subjective Remarks Patient does not talk much, he is awake open eyes, creatinine continue to increase will consult nephrology patient is on Rocephin per ID Afebrile Objective Vitals Vital Signs Date Time Temp Pulse Resp B/P (MAP) Pulse Ox O2 Delivery O2 Flow Rate FiO2 10/08/17 12:31 97.6 92 19 130/62 (84) 97 10/08/17 10:16 96 10/08/17 07:59 98.0 80 18 116/56 (76) 96 10/08/17 04:00 97.9 87 18 122/60 (80) 96 10/08/17 00:00 98.5 79 18 125/60 (81) 98 10/07/17 20:00 97.9 83 18 116/57 (76) 96 10/07/17 16:24 99.1 88 20 115/56 (75) 98 I/O 10/07/17 10/07/17 10/07/17 10/08/17 10/08/17 10/08/17 06:59 14:59 22:59 06:59 14:59 22:59 Intake Total 850 ml 480 ml Output Total 650 ml 200 ml 200 ml 400 ml 150 ml Balance 200 ml -200 ml 280 ml -400 ml -150 ml Intake Oral 850 ml 480 ml Output Urine Total 650 ml 200 ml 200 ml 400 ml 150 ml Bladder Scan Volume Amount 12 ml # Voids 4 3 # Bowel Movements 2 2 Result Diagram: 10/05/1762810/05/17 06 Objective Remarks GENERAL: This is a well-nourished, well-developed patient, in no apparent distress. CARDIOVASCULAR: RRR, 3/6 sys M RESPIRATORY: Fair air entry bilaterally. No W, R, or R GASTROINTESTINAL: Abdomen soft, non-tender, nondistended. Positive bowel sounds MUSCULOSKELETAL: Extremities without clubbing, cyanosis, or edema. Pedal pulses appreciated NEUROLOGICAL: Awake and alert. Moves all extremity. Normal speech.no focal neurological deficit Procedures None A/P Problem List: (1) Liver cirrhosis ICD Code: K74.60 - Unspecified cirrhosis of liver (2) Spleen hematoma ICD Code: S36.029A - Unspecified contusion of spleen, initial encounter Status: Acute (3) Hyperbilirubinemia ICD Code: E80.6 - Other disorders of bilirubin metabolism Status: Acute (4) Splenomegaly ICD Code: R16.1 - Splenomegaly, not elsewhere classified Status: Chronic (5) Ascites ICD Code: R18.8 - Other ascites Status: Chronic (6) Hypokalemia ICD Code: E87.6 - Hypokalemia Status: Resolved (7) Macrocytic anemia ICD Code: D53.9 - Nutritional anemia, unspecified Status: Chronic (8) HTN (hypertension) ICD Code: I10 - Essential (primary) hypertension Status: Chronic (9) Fall ICD Code: W19.XXXA - Unspecified fall, initial encounter Status: Acute (10) Left shoulder pain ICD Code: M25.512 - Pain in left shoulder (11) Edema of left lower extremity ICD Code: R60.0 - Localized edema (12) Hyperammonemia ICD Code: E72.20 - Disorder of urea cycle metabolism, unspecified (13) Coagulopathy ICD Code: D68.9 - Coagulation defect, unspecified Status: Acute (14) Diarrhea ICD Code: R19.7 - Diarrhea, unspecified Assessment and Plan 62-year-old male with coagulopathy from end-stage liver disease who had a subdural hematoma: 10/03: WBC trending down, continue current care, awaiting placement 10/04: Acute spiking fever since last night 102/101/100 0.4, I discussed with the nurse and I ordered stat chest x-ray, UA, blood culture, due to increased bilirubin I will order liver ultrasound, patient does not have signs of SBP need to rule out cholecystitis. I will start on Zosyn and give a dose of vancomycin, I will consult ID 10/05: No fever over 24 hours, continue antibiotic per ID recommendation, monitor clinically, CBC in the am 10/06: E. coli bacteremia, continue Zosyn and Flagyl, appreciate ID assistance, no fever reported overnight, monitor CBC, 2D echo, repeat blood culture, continue close monitoring for temperature 10/07: Repeat blood cultures still negative second day, continue antibiotic per ID , afebrile overnight, still on O2 10/08: Continue on Rocephin per ID, HERBER worsening will consult A/P: Acute/subacute/chronic right subdural hematoma -3.5 cm thickness with compression of the sulci/gyri with the right to left subfalcine shift 4.7 mm History of EtOH use Chronic low back pain Acute encephalopathy CT brain 09/18 revealed acute, subacute and chronic components to right subdural hematoma. 3.5 cm. Compression of the sulci and gyri. Right frontal right-to- left subfalcine shift approximately [address] brain 09/23 - interval placement of a right frontal subdural drain. There has been replacement of some of the frontal subdural fluid with air. Otherwise little change in the configuration with persistent grossly stable subfalcine shift in lateral ventricular compression with effacement of hemispheric cortical sulci. Consultation neurosurgery noted recheck head CT in a.m. 09/25 Status post right bur hole by Dr. Carranza. Drain have since been removed. Patient was placed on levetiracetam 500 mg IV twice daily 7 days 2% saline started at 30 cc an hour. Discontinue on 09/24 Blood pressure control keep systolic blood pressure less than 140 Multivitamin, thiamine and folate daily 3 days has been completed Seizure precautions Pain medications as needed. EEG with mild to moderate encephalopathic changes. No epileptic activity Hepatitis C genotype 1A viral load positive LA class B esophagitis Portal hypertension Abdominal ascites Elevated transaminases Hypoalbuminemia CT abdomen/pelvis 09/09 revealed abdominal ascites, esophageal/gastric varices. Splenomegaly. Shrunken liver. Small splenic hematoma EGD 09/12 revealed LA class B esophagitis, gastric erythema of the antrum gastric and duodenal bulb/second portion, portal hypertension/gastropathy. Patient is on pantoprazole 40 mg po daily/home medications pantoprazole Diet as tolerated Outpatient evaluation for positive hepatitis C genotype 1A for treatment Recheck liver function tests as clinically indicated. Stable Will need outpatient follow up with GI Continue lactulose 3 times daily Add Ensure 3 times daily. Essential hypertension Currently on amlodipine 10 mg daily, KAMILAH inhibitor which will be held due to acute kidney injury, hydralazine 25 every 8 hours, furosemide 40 mg daily and Spironolactone 25 mg daily. Tobaccoism Nasal cannula to maintain saturations greater than equal to 92% Incentive spirometry while awake Tobacco cessation self-education booklet will be provided Acute kidney injury Avoid nephrotoxic medications. KAMILAH inhibitor has been held Monitor urine output Accurate I's and O Macrocytic anemia Thrombocytopenia Coagulopathic state secondary to underlying liver disease S/P Vitamin K Received 4 pack platelets since admission along with 4 FFP, 2 liquid plasma, 2 cryoprecipitate. Chronic low back pain ARTEMIO 1:320 nucleolar positive with positive double-stranded DNA Nonspecific ARTEMIO findings. Not at 1: 640 Possibly also secondary to underlying liver disease/hepatitis dsdna was positive. Will need outpatient rheumatology workup PT evaluate and treat Prophylax -GI -pantoprazole -DVT -SCD/holding pharmacological prophylaxis in light of acute subdural hematoma Discharge Planning Discharged to SNF once arrangements are made Problem Qualifiers (1) Liver cirrhosis: (2) Spleen hematoma: Qualified Codes: S36.029A - Unspecified contusion of spleen, initial encounter (3) Ascites: Qualified Codes: R18.8 - Other ascites (4) HTN (hypertension): Qualified Codes: I10 - Essential (primary) hypertension (5) Fall: Qualified Codes: W19.XXXA - Unspecified fall, initial encounter (6) Left shoulder pain: Qualified Codes: M25.512 - Pain in left shoulder (7) Diarrhea: Qualified Codes: R19.7 - Diarrhea, unspecified Lamont Ny MD Oct 08, 2017 12:52
[2017-10-08 13:03] LABS: BICARBONATE 18.8 MEQ/L (21.0-32.0); CALCIUM 8.5 MG/DL (8.5-10.1); CREATININE 1.46 MG/DL (0.60-1.30)
[2017-10-08] MEDS: cefTRIAXone INJ 2,000 MG in SODIUM CHLORIDE 0.9% INJ 100 ML IV SCH (14:54)
[2017-10-08] MEDS: MELATONIN 5 MG TAB PO PRN (21:15)
[2017-10-09] VITALS: BP 118/57; PULSE 81; RESP 18; TEMP 97.9; O2SAT 95
[2017-10-09] MEDS: CHLORHEXIDINE GLUCONATE 2 % 1 PACK (2 CLOTHS) TOP SCH ×2 (04:00→21:03)
[2017-10-09 05:30] VITALS: BP 104/50; PULSE 82; RESP 20; TEMP 98; O2SAT 96
[2017-10-09] MEDS: hydrALAZINE HCL 25 MG TAB PO SCH ×3 (05:49→21:02)
[2017-10-09 08:00] VITALS: BP 129/67; PULSE 87; RESP 17; TEMP 97.9; O2SAT 96
[2017-10-09] MEDS: FUROSEMIDE 40 MG TAB PO SCH (09:21)
[2017-10-09] MEDS: THIAMINE HCL 100 MG TAB PO SCH (09:21)
[2017-10-09] MEDS: PANTOPRAZOLE SOD 40 MG DELAYED RELEASE TAB PO SCH (09:22)
[2017-10-09] MEDS: SPIRONOLACTONE 25 MG TAB PO SCH (09:22)
[2017-10-09] MEDS: MULTIVITAMIN TAB PO SCH (09:22)
[2017-10-09] MEDS: DOCUSATE SODIUM 50 MG/SENNA 8.6 MG TAB PO SCH ×2 (09:23→20:16)
[2017-10-09] MEDS: SODIUM CHLORIDE 0.9% FLUSH 10 ML FLUSH IV FLUSH SCH ×2 (09:23→20:17)
[2017-10-09] MEDS: ARTIFICIAL TEARS OPTH SOLN 15 ML BTL EACH EYE SCH ×3 (09:23→17:21)
[2017-10-09] MEDS: LACTULOSE SYRUP 20 GM/30 ML CUP PO SCH ×3 (09:23→17:21)
--- NOTE | 2017-10-09 11:09 | HHI.IDPN ---
Subjective Subjective Remarks Patient is a 62-year-old male, with known history of significant alcohol use, presented to the hospital after a fall. He was complaining of some left-sided chest pain, as well as pain on the left side of his trunk including shoulder and abdomen. He had a CT of the abdomen and pelvis which revealed portal gastropathy, ascites, liver cirrhosis, and a possible subcapsular splenic hematoma. Patient was seen by GI, and upper endoscopy was done which showed esophagitis, gastritis, portal hypertensive gastropathy, and some inflammation of the duodenum. On September 18, he was transferred to the ICU for acute onset of left-sided weakness. CT of the head showed subdural hematoma. He had placement of a bur hole, on 09/20, and this was removed on 09/25. His neurological status improved, and he still has some residual left-sided weakness. Patient was transitioned to the medical floor, and starting yesterday he developed a fever of 102. He still febrile today, and so infectious disease consultation has been requested to evaluate the patient. Patient denies any significant coughing or any chest pain or shortness of breath. He has not had any nausea or vomiting, no abdominal pain. He has had on and off diarrhea, but he is on lactulose. He has no Hoff catheter, and he denies any problem urinating. Patient has no central line, and only has peripheral IV. Patient was started on antibiotics and is on IV Zosyn, and has received a dose of IV vancomycin. His chest x-ray is normal. He had 2 blood cultures done today. Patient currently feels weak. He states he has done some ambulation. Patient has not had any fever since admission. He has not been on any antibiotics. Infectious disease consultation has been requested to evaluate the patient with no fevers. Notes reviewed Afebrile Not very cooperative with PT BC with E coli Has one new (+) BC from 10/05 UC negative - sent after he had ABx UA abnormal No abdominal pain or back pain No N/V No rash Renal US no hydronephrosis Antibiotics Rocephin Current Medications Medications (Trade) Dose Ordered Sig/Tosin Route Start Time Stop Time Status Last Admin (NS Flush) 2 ml UNSCH PRN IV FLUSH 09/09/17 09:15 09/24/17 21:30 (NS Flush) 2 ml BID IV FLUSH 09/09/17 21:00 10/08/17 09:03 (Zofran Inj) 4 mg Q6H PRN IVP 09/09/17 09:15 09/28/17 21:48 (Narcan Inj) 0.4 mg UNSCH PRN IV PUSH 09/09/17 09:15 (Toña-Colace) 1 tab BID PO 09/09/17 21:00 10/08/17 09:02 (Milk Of [place] Liq) 30 ml Q12H PRN PO 09/09/17 09:15 10/01/17 02:38 (Senokot) 17.2 mg Q12H PRN PO 09/09/17 09:15 (Dulcolax Supp) 10 mg DAILY PRN RECTAL 09/09/17 09:15 (Romazicon Inj) 0.2 mg Q1M PRN IV PUSH 09/09/17 20:00 (Ativan) 1 mg Q4H PRN PO 09/09/17 20:00 (Ativan Inj) 1 mg Q4H PRN IV PUSH 09/09/17 20:00 (Ativan) 2 mg Q2H PRN PO 09/09/17 20:00 (Ativan Inj) 2 mg Q2H PRN IV PUSH 09/09/17 20:00 (Ativan Inj) 2 mg Q1H PRN IV PUSH 09/09/17 20:00 (Ativan Inj) 2 mg Q15M PRN IV PUSH 09/09/17 20:00 (Aldactone) 25 mg DAILY PO 09/09/17 20:00 10/08/17 09:01 (Catapres) 0.1 mg Q6H PRN PO 09/10/17 12:45 10/03/17 16:33 (Lasix) 40 mg DAILY PO 09/15/17 13:30 10/08/17 09:02 (Trandate Inj) 10 mg Q1HR PRN IV PUSH 09/18/17 14:15 09/21/17 03:30 Nicardipine HCl 25 mg/Sodium Chloride 250 ml @ 50 mls/hr TITRATE PRN IV 09/18/17 14:15 (Tears Naturale Opth Soln) 1 drop TID EACH EYE 09/18/17 18:00 10/08/17 09:02 (Zofran Odt) 4 mg Q6H PRN PO 09/18/17 14:45 (Albuterol Neb) 2.5 mg Q2HR NEB PRN INH 09/18/17 14:45 09/28/17 12:28 ([facility]) 1 Q361D XX 09/18/17 14:45 09/18/17 14:45 (Chlorhexidine 2% Cloth) 3 pack Taper DAILY@04 TOP 09/19/17 04:00 09/15/18 03:59 09/23/17 04:00 (Chlorhexidine 2% Cloth) 3 pack UNSCH PRN TOP 09/18/17 14:45 (Norvasc) 10 mg DAILY PO 09/22/17 09:00 10/08/17 09:01 (Apresoline Inj) 10 mg Q1HR PRN IV PUSH 09/21/17 12:45 (Vasotec Inj) 1.25 mg Q8H PRN IV PUSH 09/21/17 12:45 10/03/17 16:33 Clevidipine 50 ml @ 2 mls/hr TITRATE PRN IV 09/21/17 13:00 (Protonix) 40 mg DAILY PO 09/22/17 09:00 10/08/17 09:02 (Apresoline) 25 mg Q8HR PO 09/21/17 15:45 10/08/17 06:28 (Vitamin B1) 100 mg DAILY PO 09/25/17 09:00 10/08/17 09:02 (Theragran) 1 tab DAILY PO 09/25/17 09:00 10/08/17 09:02 (Tylenol) 500 mg Q4H PRN PO 09/28/17 10:45 10/06/17 23:36 (Melatonin) 5 mg HS PRN PO 09/30/17 21:00 10/07/17 18:43 (Roxicodone) 5 mg Q6H PRN PO 10/01/17 11:15 10/07/17 18:36 (Lactulose Liq) 30 ml TID PO 10/01/17 13:00 10/08/17 09:02 (Motrin) 400 mg Q6H PRN PO 10/04/17 12:00 10/04/17 12:39 Ceftriaxone Sodium 2000 mg/ Sodium Chloride 100 ml @ 200 mls/hr Q24H IV 10/07/17 14:00 10/07/17 14:46 Lines Line sites with no evidence of infection. Past Medical History Past Medical History Peptic ulcer disease Anxiety Hypertension Substance abuse Past Surgical History None Allergies: Coded Allergies: No Known Allergies (Verified Adverse Reaction, Unknown, 09/09/17) Objective . Vital Signs Date Time Temp Pulse Resp B/P (MAP) Pulse Ox O2 Delivery O2 Flow Rate FiO2 10/09/17 08:00 97.9 87 17 129/67 (87) 96 10/09/17 05:30 98.0 82 20 104/50 (68) 96 10/09/17 00:00 97.9 81 18 118/57 (77) 95 10/08/17 20:00 97.9 79 18 107/57 (74) 97 10/08/17 16:06 97.8 85 18 118/58 (78) 97 10/08/17 12:31 97.6 92 19 130/62 (84) 97 . Laboratory Tests Test 10/08/17 12:03 White Blood Count 11.8 TH/MM3 Red Blood Count 3.13 MIL/MM3 Hemoglobin 10.9 GM/DL Hematocrit 31.9 % Mean Corpuscular Volume 101.9 FL Mean Corpuscular Hemoglobin 35.0 PG Mean Corpuscular Hemoglobin Concent 34.3 % Red Cell Distribution Width 15.0 % Platelet Count 80 TH/MM3 Mean Platelet Volume 8.7 FL Neutrophils (%) (Auto) 77.2 % Lymphocytes (%) (Auto) 10.2 % Monocytes (%) (Auto) 11.9 % Eosinophils (%) (Auto) 0.4 % Basophils (%) (Auto) 0.3 % Neutrophils # (Auto) 9.1 TH/MM3 Lymphocytes # (Auto) 1.2 TH/MM3 Monocytes # (Auto) 1.4 TH/MM3 Eosinophils # (Auto) 0.0 TH/MM3 Basophils # (Auto) 0.0 TH/MM3 CBC Comment AUTO DIFF Differential Comment AUTO DIFF CONFIRMED Platelet Estimate LOW Platelet Morphology Comment NORMAL Laboratory Tests Test 10/08/17 12:03 Blood Urea Nitrogen 19 MG/DL Creatinine 1.46 MG/DL Random Glucose 155 MG/DL Calcium Level 8.5 MG/DL Sodium Level 129 MEQ/L Potassium Level 3.5 MEQ/L Chloride Level 98 MEQ/L Carbon Dioxide Level 18.8 MEQ/L Anion Gap 12 MEQ/L Estimat Glomerular Filtration Rate 49 ML/MIN Imaging Last Impressions Liver Ultrasound 10/04/17 Signed Impressions: CONCLUSION: 1. No specific abnormality is identified to explain the patient's fever. 2. However, there are persistent findings indicating cirrhosis with findings o f portal hypertension including splenomegaly, recanalized paraumbilical vein, a nd ascites. 3. There is hepatofugal flow in the main portal vein. Chest X-Ray 10/04/17 Signed Impressions: CONCLUSION: No acute cardiopulmonary process. Head CT 09/23/17 Signed Impressions: Service Date/Time: Saturday, September 23, 2017 09:47 - CONCLUSION: Interval placement of subdural drain Jairo Singh MD Abdomen/Pelvis CT 09/09/17 0833 Signed Impressions: Service Date/Time: Saturday, September 09, 2017 09:09 - CONCLUSION: Extensive ascites with cirrhosis or varicosities. Prominent spleen with possible tiny subcapsular hematoma series 2 image 30. Minimal induration anterior abdominal wall left side. Gilbert Lockett MD FACR Shoulder X-Ray 09/09/17 Signed Impressions: Service Date/Time: Saturday, September 09, 2017 21:01 - CONCLUSION: 1. No acute bony abnormality. Vito Minor MD Lower Extremity Ultrasound 09/09/17 Signed Impressions: Service Date/Time: Saturday, September 09, 2017 21:41 - CONCLUSION: Normal examination. Henok Young MD Elbow X-Ray 09/09/17 Signed Impressions: Service Date/Time: Saturday, September 09, 2017 20:53 - CONCLUSION: 1. No acute bony abnormalities. Vito Minor MD Physical Exam GENERAL: Patient is a thin, well-developed male, awake and alert, NAD SKIN: Warm and dry. Has scattered petechial rash, and also with spider angiomatas. HEAD: Normocephalic. No temporal wasting, or tenderness. previous Estrada hole sit dry with no drainage or redness EYES: [place] conjunctiva. No petechia or hemorrhage. Pupils equal, round and reactive to light. Extraocular movements full and intact. Has scleral icterus. No injection or drainage. EARS, NOSE AND THROAT: Nose without bleeding or purulent nasal discharge. No sinus tenderness. Mucous membranes pink and moist. No oral lesions noted. NECK: Trachea midline. Supple and not tender, no meningeal signs CARDIOVASCULAR: Regular rate and rhythm. No murmurs, rubs or gallops heard RESPIRATORY: Clear to auscultation. Breath sounds equal bilaterally. No rales , wheezing or rhonchi ABDOMEN: Soft, nondistended. Bowel sounds present and normoactive. No guarding. No rebound. No organomegaly. Has varicosities in upper abdomen. Mild discomfort in lower abdomen. EXTREMITIES: No clubbing, cyanosis, or edema. No joint effusion, has good ROM. No calf tenderness. NEUROLOGICAL: Awake and alert. Cranial nerves grossly intact. Has weakness L side about 4/5 PSYCHIATRIC: Normal affect, calm and cooperative. LINE: No evidence of infection Assessment & Plan Remarks E coli Sepsis due to UTI E. coli bacteremia ETOH liver cirrhosis with portal HTN Recent fall, has SDH, drained Acute renal failure: likely prerenal, sepsis related. - creatinine rising again RECOMMENDATION Repeat 2 BC Continue Rocephin Follow creatinine Monitor temps Monitor progress May need to do CT A/P to evaluate further his GNR sepsis Repeat UA Raya Sequeira MD Oct 09, 2017 11:09
[2017-10-09 12:00] VITALS: BP 121/60; PULSE 79; RESP 17; TEMP 97.7; O2SAT 97
[2017-10-09 13:40] LABS: BASOPHIL % 0.5 % (0.0-2.0); EOSINOPHIL % 0.1 % (0.0-4.0); HEMATOCRIT 28.2 % (39.0-51.0); HEMOGLOBIN 9.9 GM/DL (13.0-17.0); LYMPH % 9.7 % (9.0-44.0); LYMPHOCYTE # 0.8 TH/MM3 (1.0-4.8); MEAN CELL VOLUME 100.2 FL (80.0-100.0); MEAN CORPUSCULAR HEMOGLOBIN 35.3 PG (27.0-34.0); MEAN CORPUSCULAR HGB CONC 35.2 % (32.0-36.0); MEAN PLATELET VOLUME 8.4 FL (7.0-11.0); NEUT % 76.7 % (16.0-70.0); PLATELET COUNT 68 TH/MM3 (150-450); RED BLOOD COUNT 2.81 MIL/MM3 (4.50-5.90); RED CELL DISTRIBUTION WIDTH 14.9 % (11.6-17.2); WHITE BLOOD COUNT 7.8 TH/MM3 (4.0-11.0)
[2017-10-09 13:42] LABS: BICARBONATE 21.5 MEQ/L (21.0-32.0); CALCIUM 8.4 MG/DL (8.5-10.1); CREATININE 1.23 MG/DL (0.60-1.30)
[2017-10-09] MEDS: cefTRIAXone INJ 2,000 MG in SODIUM CHLORIDE 0.9% INJ 100 ML IV SCH (13:53)
[2017-10-09] MEDS ORDERED: POTASSIUM CHLORIDE 20 MEQ CONTROLLED RELEASE TAB PO ONE (15:30)
[2017-10-09 16:00] VITALS: BP 124/59; PULSE 86; RESP 17; TEMP 98.2; O2SAT 97
--- NOTE | 2017-10-09 16:01 | HHI.PR ---
Subjective Remarks The patient was sleeping. He was upset that everybody keeps interrupting his sleep. He says he is frustrated that he is still here in the hospital. Besides that he had no acute complaints. Objective Vitals Vital Signs Date Time Temp Pulse Resp B/P (MAP) Pulse Ox O2 Delivery O2 Flow Rate FiO2 10/09/17 12:00 97.7 79 17 121/60 (80) 97 10/09/17 08:00 97.9 87 17 129/67 (87) 96 10/09/17 05:30 98.0 82 20 104/50 (68) 96 10/09/17 00:00 97.9 81 18 118/57 (77) 95 10/08/17 20:00 97.9 79 18 107/57 (74) 97 10/08/17 16:06 97.8 85 18 118/58 (78) 97 I/O 10/08/17 10/08/17 10/08/17 10/09/17 10/09/17 10/09/17 07:00 15:00 23:00 07:00 15:00 23:00 Intake Total 360 ml Output Total 400 ml 150 ml 300 ml Balance -400 ml -150 ml 60 ml Intake Oral 360 ml Output Urine Total 400 ml 150 ml 300 ml # Voids 2 4 1 # Bowel Movements 3 Result Diagram: 10/09/17 1239 10/09/17 1239 Imaging Last Impressions Renal Ultrasound 10/08/17 0000 Signed Impressions: CONCLUSION: 1. There are no findings to indicate obstruction. Kidneys have a normal appear ance. 2. Small volume of ascites in this patient with cirrhosis. Abdomen Ultrasound 10/06/17 0000 Signed Impressions: CONCLUSION: 1. Small amount of ascites along the edge of the liver. 2. Nodularity of the hepatic contour suggesting cirrhosis. Liver Ultrasound 10/04/17 0000 Signed Impressions: CONCLUSION: 1. No specific abnormality is identified to explain the patient's fever. 2. However, there are persistent findings indicating cirrhosis with findings o f portal hypertension including splenomegaly, recanalized paraumbilical vein, a nd ascites. 3. There is hepatofugal flow in the main portal vein. Chest X-Ray 10/04/17 0000 Signed Impressions: CONCLUSION: No acute cardiopulmonary process. Head CT 09/23/17 0000 Signed Impressions: Service Date/Time: Saturday, September 23, 2017 09:47 - CONCLUSION: Interval placement of subdural drain Jairo Singh MD Abdomen/Pelvis CT 09/09/17 0833 Signed Impressions: Service Date/Time: Saturday, September 09, 2017 09:09 - CONCLUSION: Extensive ascites with cirrhosis or varicosities. Prominent spleen with possible tiny subcapsular hematoma series 2 image 30. Minimal induration anterior abdominal wall left side. Gilbert Lockett MD FACR Shoulder X-Ray 09/09/17 0000 Signed Impressions: Service Date/Time: Saturday, September 09, 2017 21:01 - CONCLUSION: 1. No acute bony abnormality. Vito Minor MD Lower Extremity Ultrasound 09/09/17 0000 Signed Impressions: Service Date/Time: Saturday, September 09, 2017 21:41 - CONCLUSION: Normal examination. Henok Young MD Elbow X-Ray 09/09/17 Signed Impressions: Service Date/Time: Saturday, September 09, 2017 20:53 - CONCLUSION: 1. No acute bony abnormalities. Vito Minor MD Objective Remarks GENERAL: This is a well-nourished, well-developed patient, in no apparent distress. CARDIOVASCULAR: RRR. RESPIRATORY: Fair air entry bilaterally. No W, R, or R GASTROINTESTINAL: Abdomen soft, non-tender, nondistended. Positive bowel sounds MUSCULOSKELETAL: Extremities without clubbing, cyanosis, or edema. Pedal pulses appreciated NEUROLOGICAL: Awake and alert. Moves all extremity. Normal speech.no focal neurological deficit Procedures None A/P Problem List: (1) Liver cirrhosis ICD Code: K74.60 - Unspecified cirrhosis of liver (2) Spleen hematoma ICD Code: S36.029A - Unspecified contusion of spleen, initial encounter Status: Acute (3) Hyperbilirubinemia ICD Code: E80.6 - Other disorders of bilirubin metabolism Status: Acute (4) Splenomegaly ICD Code: R16.1 - Splenomegaly, not elsewhere classified Status: Chronic (5) Ascites ICD Code: R18.8 - Other ascites Status: Chronic (6) Hypokalemia ICD Code: E87.6 - Hypokalemia Status: Resolved (7) Macrocytic anemia ICD Code: D53.9 - Nutritional anemia, unspecified Status: Chronic (8) HTN (hypertension) ICD Code: I10 - Essential (primary) hypertension Status: Chronic (9) Fall ICD Code: W19.XXXA - Unspecified fall, initial encounter Status: Acute (10) Left shoulder pain ICD Code: M25.512 - Pain in left shoulder (11) Edema of left lower extremity ICD Code: R60.0 - Localized edema (12) Hyperammonemia ICD Code: E72.20 - Disorder of urea cycle metabolism, unspecified (13) Coagulopathy ICD Code: D68.9 - Coagulation defect, unspecified Status: Acute (14) Diarrhea ICD Code: R19.7 - Diarrhea, unspecified Assessment and Plan 62-year-old male with coagulopathy from end-stage liver disease who had a subdural hematoma: E. coli bacteremia ID consult appreciated. - continue ceftriaxone per ID. Acute/subacute/chronic right subdural hematoma -3.5 cm thickness with compression of the sulci/gyri with the right to left subfalcine shift 4.7 mm/ Acute encephalopathy CT brain 09/18 revealed acute, subacute and chronic components to right subdural hematoma. 3.5 cm. Compression of the sulci and gyri. Right frontal right-to- left subfalcine shift approximately [address] brain 09/23 - interval placement of a right frontal subdural drain. There has been replacement of some of the frontal subdural fluid with air. Otherwise little change in the configuration with persistent grossly stable subfalcine shift in lateral ventricular compression with effacement of hemispheric cortical sulci. Status post right bur hole by Dr. Carranza. Drain have since been removed. Patient was placed on levetiracetam 500 mg IV twice daily 7 days. - Blood pressure control keep systolic blood pressure less than 140 - Multivitamin, thiamine and folate daily 3 days has been completed - Seizure precautions - Pain medications as needed. - EEG with mild to moderate encephalopathic changes. No epileptic activity Hepatitis C genotype 1A viral load positive/ LA class B esophagitis/ Portal hypertension/ Abdominal ascites/ Elevated transaminases CT abdomen/pelvis 09/09 revealed abdominal ascites, esophageal/gastric varices. Splenomegaly. Shrunken liver. Small splenic hematoma. EGD 09/12 revealed LA class B esophagitis, gastric erythema of the antrum gastric and duodenal bulb/ second portion, portal hypertension/gastropathy. - Patient is on pantoprazole 40 mg po daily/home medications pantoprazole - Diet as tolerated - Outpatient evaluation for positive hepatitis C genotype 1A for treatment - Recheck liver function tests as clinically indicated. Stable - Will need outpatient follow up with GI - Continue lactulose 3 times daily - Add Ensure 3 times daily. Essential hypertension - Currently on amlodipine 10 mg daily, KAMILAH inhibitor which will be held due to acute kidney injury, hydralazine 25 every 8 hours, furosemide 40 mg daily and Spironolactone 25 mg daily. Tobaccoism - Nasal cannula to maintain saturations greater than equal to 92%. - Incentive spirometry while awake. - Tobacco cessation self-education booklet will be provided. Acute kidney injury Avoid nephrotoxic medications. KAMILAH inhibitor has been held - continue Aldactone and Lasix as creatinine is returning to baseline. - Accurate I's and O - follow up with nephrology. Macrocytic anemia/ Thrombocytopenia/ Coagulopathic state secondary to underlying liver disease S/P Vitamin K. Received 4 pack platelets since admission along with 4 FFP, 2 liquid plasma, 2 cryoprecipitate. - follow CBC Chronic low back pain ARTEMIO 1:320 nucleolar positive with positive double-stranded DNA. Possibly also secondary to underlying liver disease/hepatitis. - Will need outpatient rheumatology workup - PT evaluate and treat. Prophylax -GI -pantoprazole -DVT -SCD/holding pharmacological prophylaxis in light of acute subdural hematoma Problem Qualifiers (1) Liver cirrhosis: (2) Spleen hematoma: Qualified Codes: S36.029A - Unspecified contusion of spleen, initial encounter (3) Ascites: Qualified Codes: R18.8 - Other ascites (4) HTN (hypertension): Qualified Codes: I10 - Essential (primary) hypertension (5) Fall: Qualified Codes: W19.XXXA - Unspecified fall, initial encounter (6) Left shoulder pain: Qualified Codes: M25.512 - Pain in left shoulder (7) Diarrhea: Qualified Codes: R19.7 - Diarrhea, unspecified Malik Jones DO Oct 09, 2017 16:01
[2017-10-09 20:00] VITALS: BP 132/63; PULSE 87; RESP 18; TEMP 98.8; O2SAT 97
[2017-10-10] VITALS: BP 140/70; PULSE 80; RESP 18; TEMP 99; O2SAT 99
[2017-10-10 04:00] VITALS: BP 127/58; PULSE 89; RESP 18; TEMP 99.1; O2SAT 96
[2017-10-10] MEDS: hydrALAZINE HCL 25 MG TAB PO SCH ×3 (05:26→21:04)
[2017-10-10 08:00] VITALS: BP 112/56; PULSE 86; RESP 17; TEMP 99.4; O2SAT 96
[2017-10-10] MEDS: MULTIVITAMIN TAB PO SCH (09:41)
[2017-10-10] MEDS: PANTOPRAZOLE SOD 40 MG DELAYED RELEASE TAB PO SCH (09:42)
[2017-10-10] MEDS: SPIRONOLACTONE 25 MG TAB PO SCH (09:42)
[2017-10-10] MEDS: ARTIFICIAL TEARS OPTH SOLN 15 ML BTL EACH EYE SCH ×3 (09:42→17:13)
[2017-10-10] MEDS: LACTULOSE SYRUP 20 GM/30 ML CUP PO SCH ×3 (09:42→17:13)
[2017-10-10] MEDS: THIAMINE HCL 100 MG TAB PO SCH (09:42)
[2017-10-10] MEDS: SODIUM CHLORIDE 0.9% FLUSH 10 ML FLUSH IV FLUSH SCH ×2 (09:42→21:05)
[2017-10-10] MEDS: FUROSEMIDE 40 MG TAB PO SCH (09:42)
[2017-10-10] MEDS: DOCUSATE SODIUM 50 MG/SENNA 8.6 MG TAB PO SCH ×2 (09:43→21:04)
--- NOTE | 2017-10-10 11:05 | HHI.PR ---
Subjective Remarks The patient wanted to know if he was done with his medical treatment. He said that his daughters would come from [place] and bring him back with them when he was ready. He had no acute complaints. Objective Vitals Vital Signs Date Time Temp Pulse Resp B/P (MAP) Pulse Ox O2 Delivery O2 Flow Rate FiO2 10/10/17 08:00 99.4 86 17 112/56 (74) 96 10/10/17 04:00 99.1 89 18 127/58 (81) 96 10/10/17 00:00 99.0 80 18 140/70 (93) 99 10/09/17 20:00 98.8 87 18 132/63 (86) 97 10/09/17 16:00 98.2 86 17 124/59 (80) 97 10/09/17 12:00 97.7 79 17 121/60 (80) 97 I/O 10/09/17 10/09/17 10/09/17 10/10/17 10/10/17 10/10/17 07:00 15:00 23:00 07:00 15:00 23:00 # Voids 4 6 2 # Bowel Movements 3 3 1 Result Diagram: 10/09/17 1239 10/09/17 1239 Imaging Last Impressions Renal Ultrasound 10/08/17 0000 Signed Impressions: CONCLUSION: 1. There are no findings to indicate obstruction. Kidneys have a normal appear ance. 2. Small volume of ascites in this patient with cirrhosis. Abdomen Ultrasound 10/06/17 0000 Signed Impressions: CONCLUSION: 1. Small amount of ascites along the edge of the liver. 2. Nodularity of the hepatic contour suggesting cirrhosis. Liver Ultrasound 10/04/17 0000 Signed Impressions: CONCLUSION: 1. No specific abnormality is identified to explain the patient's fever. 2. However, there are persistent findings indicating cirrhosis with findings o f portal hypertension including splenomegaly, recanalized paraumbilical vein, a nd ascites. 3. There is hepatofugal flow in the main portal vein. Chest X-Ray 10/04/17 0000 Signed Impressions: CONCLUSION: No acute cardiopulmonary process. Head CT 09/23/17 0000 Signed Impressions: Service Date/Time: Saturday, September 23, 2017 09:47 - CONCLUSION: Interval placement of subdural drain Jairo Singh MD Abdomen/Pelvis CT 09/09/17 0833 Signed Impressions: Service Date/Time: Saturday, September 09, 2017 09:09 - CONCLUSION: Extensive ascites with cirrhosis or varicosities. Prominent spleen with possible tiny subcapsular hematoma series 2 image 30. Minimal induration anterior abdominal wall left side. Gilbert Lockett MD FACR Shoulder X-Ray 09/09/17 Signed Impressions: Service Date/Time: Saturday, September 09, 2017 21:01 - CONCLUSION: 1. No acute bony abnormality. Vito Minor MD Lower Extremity Ultrasound 09/09/17 Signed Impressions: Service Date/Time: Saturday, September 09, 2017 21:41 - CONCLUSION: Normal examination. Henok Young MD Elbow X-Ray 09/09/17 Signed Impressions: Service Date/Time: Saturday, September 09, 2017 20:53 - CONCLUSION: 1. No acute bony abnormalities. Vito Minor MD Objective Remarks GENERAL: This is a well-nourished, well-developed patient, in no apparent distress. CARDIOVASCULAR: RRR. RESPIRATORY: Fair air entry bilaterally. No W, R, or R GASTROINTESTINAL: Abdomen soft, non-tender, nondistended. Positive bowel sounds MUSCULOSKELETAL: Extremities without clubbing, cyanosis, or edema. Pedal pulses appreciated NEUROLOGICAL: Awake and alert. Moves all extremity. Normal speech.no focal neurological deficit Procedures None A/P Problem List: (1) Liver cirrhosis ICD Code: K74.60 - Unspecified cirrhosis of liver (2) Spleen hematoma ICD Code: S36.029A - Unspecified contusion of spleen, initial encounter Status: Acute (3) Hyperbilirubinemia ICD Code: E80.6 - Other disorders of bilirubin metabolism Status: Acute (4) Splenomegaly ICD Code: R16.1 - Splenomegaly, not elsewhere classified Status: Chronic (5) Ascites ICD Code: R18.8 - Other ascites Status: Chronic (6) Hypokalemia ICD Code: E87.6 - Hypokalemia Status: Resolved (7) Macrocytic anemia ICD Code: D53.9 - Nutritional anemia, unspecified Status: Chronic (8) HTN (hypertension) ICD Code: I10 - Essential (primary) hypertension Status: Chronic (9) Fall ICD Code: W19.XXXA - Unspecified fall, initial encounter Status: Acute (10) Left shoulder pain ICD Code: M25.512 - Pain in left shoulder (11) Edema of left lower extremity ICD Code: R60.0 - Localized edema (12) Hyperammonemia ICD Code: E72.20 - Disorder of urea cycle metabolism, unspecified (13) Coagulopathy ICD Code: D68.9 - Coagulation defect, unspecified Status: Acute (14) Diarrhea ICD Code: R19.7 - Diarrhea, unspecified Assessment and Plan Acute/subacute/chronic right subdural hematoma -3.5 cm thickness with compression of the sulci/gyri with the right to left subfalcine shift 4.7 mm/ Acute encephalopathy CT brain 09/18 revealed acute, subacute and chronic components to right subdural hematoma. 3.5 cm. Compression of the sulci and gyri. Right frontal right-to- left subfalcine shift approximately [address] brain 09/23 - interval placement of a right frontal subdural drain. There has been replacement of some of the frontal subdural fluid with air. Otherwise little change in the configuration with persistent grossly stable subfalcine shift in lateral ventricular compression with effacement of hemispheric cortical sulci. Status post right bur hole by Dr. Carranza. Drain have since been removed. Patient was placed on levetiracetam 500 mg IV twice daily 7 days. EEG with mild to moderate encephalopathic changes; No epileptic activity. - Blood pressure control keep systolic blood pressure less than 140. - Multivitamin, thiamine and folate daily 3 days has been completed. - Seizure precautions. - Pain medications as needed. E. coli bacteremia ID consult appreciated. - continue ceftriaxone per ID. - Follow repeat blood cultures. Hepatitis C genotype 1A viral load positive/ LA class B esophagitis/ Portal hypertension/ Abdominal ascites/ Elevated transaminases CT abdomen/pelvis 09/09 revealed abdominal ascites, esophageal/gastric varices. Splenomegaly. Shrunken liver. Small splenic hematoma. EGD 09/12 revealed LA class B esophagitis, gastric erythema of the antrum gastric and duodenal bulb/ second portion, portal hypertension/gastropathy. - Patient is on pantoprazole 40 mg po daily/home medications pantoprazole. - Diet as tolerated. - Outpatient evaluation for positive hepatitis C genotype 1A for treatment. - Recheck liver function tests as clinically indicated. Stable. - Continue lactulose 3 times daily. - Add Ensure 3 times daily. - Continue diuretics. Tobaccoism Chronic. - Nasal cannula to maintain saturations greater than equal to 92%. - Incentive spirometry while awake. - Tobacco cessation self-education booklet will be provided. Acute kidney injury Avoid nephrotoxic medications. KAMILAH inhibitor has been held - continue Aldactone and Lasix as creatinine is returning to baseline. - Accurate I's and O - follow up with nephrology. Macrocytic anemia/ Thrombocytopenia/ Coagulopathic state secondary to underlying liver disease S/P Vitamin K. Received 4 pack platelets since admission along with 4 FFP, 2 liquid plasma, 2 cryoprecipitate. - follow CBC Chronic low back pain ARTEMIO 1:320 nucleolar positive with positive double-stranded DNA. Possibly also secondary to underlying liver disease/hepatitis. - Will need outpatient rheumatology workup - PT evaluate and treat. Prophylax -GI -pantoprazole -DVT -SCD/holding pharmacological prophylaxis in light of acute subdural hematoma Discharge Planning Needs placement, ID clearance Problem Qualifiers (1) Liver cirrhosis: (2) Spleen hematoma: Qualified Codes: S36.029A - Unspecified contusion of spleen, initial encounter (3) Ascites: Qualified Codes: R18.8 - Other ascites (4) HTN (hypertension): Qualified Codes: I10 - Essential (primary) hypertension (5) Fall: Qualified Codes: W19.XXXA - Unspecified fall, initial encounter (6) Left shoulder pain: Qualified Codes: M25.512 - Pain in left shoulder (7) Diarrhea: Qualified Codes: R19.7 - Diarrhea, unspecified Malik Jones DO Oct 10, 2017 11:05
--- NOTE | 2017-10-10 11:11 | HHI.IDPN ---
Subjective Subjective Remarks Patient is a 62-year-old male, with known history of significant alcohol use, presented to the hospital after a fall. He was complaining of some left-sided chest pain, as well as pain on the left side of his trunk including shoulder and abdomen. He had a CT of the abdomen and pelvis which revealed portal gastropathy, ascites, liver cirrhosis, and a possible subcapsular splenic hematoma. Patient was seen by GI, and upper endoscopy was done which showed esophagitis, gastritis, portal hypertensive gastropathy, and some inflammation of the duodenum. On September 18, he was transferred to the ICU for acute onset of left-sided weakness. CT of the head showed subdural hematoma. He had placement of a bur hole, on 09/20, and this was removed on 09/25. His neurological status improved, and he still has some residual left-sided weakness. Patient was transitioned to the medical floor, and starting yesterday he developed a fever of 102. He still febrile today, and so infectious disease consultation has been requested to evaluate the patient. Patient denies any significant coughing or any chest pain or shortness of breath. He has not had any nausea or vomiting, no abdominal pain. He has had on and off diarrhea, but he is on lactulose. He has no Rooney catheter, and he denies any problem urinating. Patient has no central line, and only has peripheral IV. Patient was started on antibiotics and is on IV Zosyn, and has received a dose of IV vancomycin. His chest x-ray is normal. He had 2 blood cultures done today. Patient currently feels weak. He states he has done some ambulation. Patient has not had any fever since admission. He has not been on any antibiotics. Infectious disease consultation has been requested to evaluate the patient with no fevers. Notes reviewed Afebrile BC with E coli Has one new (+) BC with Ecoli from 10/05 UC negative - sent after he had ABx Repeat UA not done yet No abdominal pain or back pain No N/V No rash Renal US no hydronephrosis Antibiotics Rocephin Current Medications Medications (Trade) Dose Ordered Sig/Tosin Route Start Time Stop Time Status Last Admin (NS Flush) 2 ml UNSCH PRN IV FLUSH 09/09/17 09:15 09/24/17 21:30 (NS Flush) 2 ml BID IV FLUSH 09/09/17 21:00 10/10/17 09:42 (Zofran Inj) 4 mg Q6H PRN IVP 09/09/17 09:15 09/28/17 21:48 (Narcan Inj) 0.4 mg UNSCH PRN IV PUSH 09/09/17 09:15 (Toña-Colace) 1 tab BID PO 09/09/17 21:00 10/08/17 09:02 (Milk Of Jeff Liq) 30 ml Q12H PRN PO 09/09/17 09:15 10/01/17 02:38 (Senokot) 17.2 mg Q12H PRN PO 09/09/17 09:15 (Dulcolax Supp) 10 mg DAILY PRN RECTAL 09/09/17 09:15 (Romazicon Inj) 0.2 mg Q1M PRN IV PUSH 09/09/17 20:00 (Ativan) 1 mg Q4H PRN PO 09/09/17 20:00 (Ativan Inj) 1 mg Q4H PRN IV PUSH 09/09/17 20:00 (Ativan) 2 mg Q2H PRN PO 09/09/17 20:00 (Ativan Inj) 2 mg Q2H PRN IV PUSH 09/09/17 20:00 (Ativan Inj) 2 mg Q1H PRN IV PUSH 09/09/17 20:00 (Ativan Inj) 2 mg Q15M PRN IV PUSH 09/09/17 20:00 (Aldactone) 25 mg DAILY PO 09/09/17 20:00 10/10/17 09:42 (Catapres) 0.1 mg Q6H PRN PO 09/10/17 12:45 10/03/17 16:33 (Lasix) 40 mg DAILY PO 09/15/17 13:30 10/10/17 09:42 (Trandate Inj) 10 mg Q1HR PRN IV PUSH 09/18/17 14:15 09/21/17 03:30 Nicardipine HCl 25 mg/Sodium Chloride 250 ml @ 50 mls/hr TITRATE PRN IV 09/18/17 14:15 (Tears Naturale Opth Soln) 1 drop TID EACH EYE 09/18/17 18:00 10/10/17 09:42 (Zofran Odt) 4 mg Q6H PRN PO 09/18/17 14:45 (Albuterol Neb) 2.5 mg Q2HR NEB PRN INH 09/18/17 14:45 09/28/17 12:28 ([facility] 1 Q361D XX 09/18/17 14:45 09/18/17 14:45 (Chlorhexidine 2% Cloth) 3 pack Taper DAILY@04 TOP 09/19/17 04:00 09/15/18 03:59 09/23/17 04:00 (Chlorhexidine 2% Cloth) 3 pack UNSCH PRN TOP 09/18/17 14:45 (Norvasc) 10 mg DAILY PO 09/22/17 09:00 10/10/17 09:42 (Apresoline Inj) 10 mg Q1HR PRN IV PUSH 09/21/17 12:45 (Vasotec Inj) 1.25 mg Q8H PRN IV PUSH 09/21/17 12:45 10/03/17 16:33 Clevidipine 50 ml @ 2 mls/hr TITRATE PRN IV 09/21/17 13:00 (Protonix) 40 mg DAILY PO 09/22/17 09:00 10/10/17 09:42 (Apresoline) 25 mg Q8HR PO 09/21/17 15:45 10/10/17 05:26 (Vitamin B1) 100 mg DAILY PO 09/25/17 09:00 10/10/17 09:42 (Theragran) 1 tab DAILY PO 09/25/17 09:00 10/10/17 09:41 (Tylenol) 500 mg Q4H PRN PO 09/28/17 10:45 10/06/17 23:36 (Melatonin) 5 mg HS PRN PO 09/30/17 21:00 10/08/17 21:15 (Roxicodone) 5 mg Q6H PRN PO 10/01/17 11:15 10/09/17 13:52 (Lactulose Liq) 30 ml TID PO 10/01/17 13:00 10/10/17 09:42 (Motrin) 400 mg Q6H PRN PO 10/04/17 12:00 10/04/17 12:39 Ceftriaxone Sodium 2000 mg/ Sodium Chloride 100 ml @ 200 mls/hr Q24H IV 10/07/17 14:00 6/6/18 13:53 Lines Line sites with no evidence of infection. Past Medical History Past Medical History Peptic ulcer disease Anxiety Hypertension Substance abuse Past Surgical History None Allergies: Coded Allergies: No Known Allergies (Verified Adverse Reaction, Unknown, 09/09/17) Objective . Vital Signs Date Time Temp Pulse Resp B/P (MAP) Pulse Ox O2 Delivery O2 Flow Rate FiO2 10/10/17 08:00 99.4 86 17 112/56 (74) 96 10/10/17 04:00 99.1 89 18 127/58 (81) 96 10/10/17 00:00 99.0 80 18 140/70 (93) 99 10/09/17 20:00 98.8 87 18 132/63 (86) 97 10/09/17 16:00 98.2 86 17 124/59 (80) 97 10/09/17 12:00 97.7 79 17 121/60 (80) 97 . Laboratory Tests Test 10/08/17 12:03 10/09/17 12:39 White Blood Count 11.8 TH/MM3 7.8 TH/MM3 Red Blood Count 3.13 MIL/MM3 2.81 MIL/MM3 Hemoglobin 10.9 GM/DL 9.9 GM/DL Hematocrit 31.9 % 28.2 % Mean Corpuscular Volume 101.9 FL 100.2 FL Mean Corpuscular Hemoglobin 35.0 PG 35.3 PG Mean Corpuscular Hemoglobin Concent 34.3 % 35.2 % Red Cell Distribution Width 15.0 % 14.9 % Platelet Count 80 TH/MM3 68 TH/MM3 Mean Platelet Volume 8.7 FL 8.4 FL Neutrophils (%) (Auto) 77.2 % 76.7 % Lymphocytes (%) (Auto) 10.2 % 9.7 % Monocytes (%) (Auto) 11.9 % 13.0 % Eosinophils (%) (Auto) 0.4 % 0.1 % Basophils (%) (Auto) 0.3 % 0.5 % Neutrophils # (Auto) 9.1 TH/MM3 6.0 TH/MM3 Lymphocytes # (Auto) 1.2 TH/MM3 0.8 TH/MM3 Monocytes # (Auto) 1.4 TH/MM3 1.0 TH/MM3 Eosinophils # (Auto) 0.0 TH/MM3 0.0 TH/MM3 Basophils # (Auto) 0.0 TH/MM3 0.0 TH/MM3 CBC Comment AUTO DIFF AUTO DIFF Differential Comment AUTO DIFF CONFIRMED AUTO DIFF CONFIRMED Platelet Estimate LOW LOW Platelet Morphology Comment NORMAL ENLARGED Laboratory Tests Test 10/08/17 12:03 10/09/17 12:39 Blood Urea Nitrogen 19 MG/DL 16 MG/DL Creatinine 1.46 MG/DL 1.23 MG/DL Random Glucose 155 MG/DL 109 MG/DL Calcium Level 8.5 MG/DL 8.4 MG/DL Sodium Level 129 MEQ/L 132 MEQ/L Potassium Level 3.5 MEQ/L 3.4 MEQ/L Chloride Level 98 MEQ/L 100 MEQ/L Carbon Dioxide Level 18.8 MEQ/L 21.5 MEQ/L Anion Gap 12 MEQ/L 11 MEQ/L Estimat Glomerular Filtration Rate 49 ML/MIN 59 ML/MIN Microbiology Date/Time Source Procedure Growth Status 10/09/17 12:34 Blood Peripheral Aerobic Blood Culture - Preliminary NO GROWTH IN 1 DAY Resulted 10/09/17 12:34 Blood Peripheral Anaerobic Blood Culture - Preliminary NO GROWTH IN 1 DAY Resulted 10/09/17 12:28 Blood Peripheral Aerobic Blood Culture - Preliminary NO GROWTH IN 1 DAY Resulted 10/09/17 12:28 Blood Peripheral Anaerobic Blood Culture - Preliminary NO GROWTH IN 1 DAY Resulted Imaging Last Impressions Liver Ultrasound 10/04/17 0000 Signed Impressions: CONCLUSION: 1. No specific abnormality is identified to explain the patient's fever. 2. However, there are persistent findings indicating cirrhosis with findings o f portal hypertension including splenomegaly, recanalized paraumbilical vein, a nd ascites. 3. There is hepatofugal flow in the main portal vein. Chest X-Ray 10/04/17 0000 Signed Impressions: CONCLUSION: No acute cardiopulmonary process. Head CT 09/23/17 0000 Signed Impressions: Service Date/Time: Saturday, September 23, 2017 09:47 - CONCLUSION: Interval placement of subdural drain Jairo Singh MD Abdomen/Pelvis CT 09/09/17 0833 Signed Impressions: Service Date/Time: Saturday, September 09, 2017 09:09 - CONCLUSION: Extensive ascites with cirrhosis or varicosities. Prominent spleen with possible tiny subcapsular hematoma series 2 image 30. Minimal induration anterior abdominal wall left side. Gilbert Lockett MD FACR Shoulder X-Ray 09/09/17 0000 Signed Impressions: Service Date/Time: Saturday, September 09, 2017 21:01 - CONCLUSION: 1. No acute bony abnormality. Vito Minor MD Lower Extremity Ultrasound 09/09/17 0000 Signed Impressions: Service Date/Time: Saturday, September 09, 2017 21:41 - CONCLUSION: Normal examination. Henok Young MD Elbow X-Ray 09/09/17 0000 Signed Impressions: Service Date/Time: Saturday, September 09, 2017 20:53 - CONCLUSION: 1. No acute bony abnormalities. Vito Minor MD Physical Exam GENERAL: Patient is a thin, well-developed male, awake and alert, NAD SKIN: Warm and dry. Has scattered petechial rash, and also with spider angiomatas. HEAD: Normocephalic. No temporal wasting, or tenderness. previous [place] hole sit dry with no drainage or redness EYES: [place] conjunctiva. No petechia or hemorrhage. Pupils equal, round and reactive to light. Extraocular movements full and intact. Has scleral icterus. No injection or drainage. EARS, NOSE AND THROAT: Nose without bleeding or purulent nasal discharge. No sinus tenderness. Mucous membranes pink and moist. No oral lesions noted. NECK: Trachea midline. Supple and not tender, no meningeal signs CARDIOVASCULAR: Regular rate and rhythm. No murmurs, rubs or gallops heard RESPIRATORY: Clear to auscultation. Breath sounds equal bilaterally. No rales , wheezing or rhonchi ABDOMEN: Soft, nondistended. Bowel sounds present and normoactive. No guarding. No rebound. No organomegaly. Has varicosities in upper abdomen. Mild discomfort in lower abdomen. EXTREMITIES: No clubbing, cyanosis, or edema. No joint effusion, has good ROM. No calf tenderness. NEUROLOGICAL: Awake and alert. Cranial nerves grossly intact. Has weakness L side about 4/5 PSYCHIATRIC: Normal affect, calm and cooperative. LINE: No evidence of infection Assessment & Plan Remarks E coli Sepsis likely due to UTI, but has a new (+) BC, ?other focus UTI, no rooney ETOH liver cirrhosis with portal HTN Recent fall, has SDH, drained Acute renal failure: likely prerenal, sepsis related. - creatinine improving RECOMMENDATION Continue Rocephin Follow C/S Follow creatinine Monitor temps Monitor progress CT A/P to evaluate further his GNR sepsis Repeat UA Raya Sequeira MD Oct 10, 2017 11:11
[2017-10-10 11:27] LABS: BACTERIA, URINE OCC /hpf; BILIRUBIN, URINE NEG (NEG); BLOOD, URINE TRACE (NEG); GLUCOSE,URINE NEG (NEG); KETONE, URINE NEG (NEG); NITRITE,URINE NEG (NEG); TRANSITIONAL EPI CELLS, URINE <1 /hpf; URINE COLOR DARK-YELLOW (YELLW/STRAW); URINE LEUKOCYTE ESTERASE LARGE (NEG); WHITE BLOOD CELL CLUMPS RARE
[2017-10-10 12:00] VITALS: BP 123/58; PULSE 86; RESP 17; TEMP 97.8; O2SAT 98
[2017-10-10] MEDS ORDERED: DIATRIZOATE MEGLUM/DIATRIZOATE SOD 9 ML CUP PO ONE (12:30)
[2017-10-10] MEDS: cefTRIAXone INJ 2,000 MG in SODIUM CHLORIDE 0.9% INJ 100 ML IV SCH (14:18)
[2017-10-10 16:00] VITALS: BP 112/59; PULSE 89; RESP 17; TEMP 97.8; O2SAT 97
[2017-10-10 16:10] LABS: HEMATOCRIT 27.8 % (39.0-51.0); HEMOGLOBIN 9.9 GM/DL (13.0-17.0); MEAN CELL VOLUME 100.7 FL (80.0-100.0); MEAN CORPUSCULAR HEMOGLOBIN 35.8 PG (27.0-34.0); MEAN CORPUSCULAR HGB CONC 35.5 % (32.0-36.0); MEAN PLATELET VOLUME 8.4 FL (7.0-11.0); PLATELET COUNT 71 TH/MM3 (150-450); RED BLOOD COUNT 2.76 MIL/MM3 (4.50-5.90); RED CELL DISTRIBUTION WIDTH 15.2 % (11.6-17.2); WHITE BLOOD COUNT 7.8 TH/MM3 (4.0-11.0)
[2017-10-10 16:42] LABS: CALCIUM 8.1 MG/DL (8.5-10.1); CREATININE 1.18 MG/DL (0.60-1.30); MAGNESIUM 1.7 MG/DL (1.5-2.5)
--- NOTE | 2017-10-10 17:14 | RADRPT ---
EXAM DATE: 10/10/2017 4:59 PM EDT AGE/SEX: 62 years / Male INDICATIONS: Evaluate for abscess. Septic ecoli. CLINICAL DATA: This is the patient's initial encounter. Patient reports that signs and symptoms have been present for 1 day and indicates a pain score of 0/10. MEDICAL/SURGICAL HISTORY: Hypertension. None. RADIATION DOSE: 9.66 CTDI (mGy) COMPARISON: No prior exams available for comparison. TECHNIQUE: Multiple contiguous axial images were obtained through the abdomen. Images were obtained using multiple row detector helical technique. Using dose reduction techniques, radiation dose was ke pt as low as reasonably achievable to obtain optimal diagnostic quality images. FINDINGS: Lower Lungs: Minimal fluid and mild adjacent atelectasis in the posterior lung bases Liver: Markedly cirrhotic appearance. No evidence of mass or biliary ductal dilatation. Tiny gallston es. Stigmata of portal hypertension including mild ascites and prominent varices, particularly perium bilical varices and abdominal wall varices. Likely spontaneous spleno renal shunt. Spleen: Markedly enlarged without focal mass. Pancreas: Unremarkable without mass or calcification. Kidneys: Mild bilateral medullary nephrocalcinosis. No evidence of hydronephrosis. Adrenal Glands: Unremarkable. Aorta: The aorta and proximal iliac vessels are grossly unremarkable without aneurysmal dilation. Bowel/Mesentery: The bowel loops are grossly unremarkable. The cecum and sigmoid colon have a normal configuration. Abdominal Wall: See above Retroperitoneum: Mild enlargement of para-aortic lymph nodes, celiac chain nodes in gastrohepatic li gament nodes. Bladder: Contours are smooth. Reproductive Organs: No abnormal masses or calcifications seen. Inguinal: The inguinal region is unremarkable without evidence of adenopathy. Bony Structures: Unremarkable. CONCLUSION: 1. Cirrhotic liver appearance with prominent stigmata of portal hypertension. 2. Nonspecific lymphadenopathy. 3. Mild ascites. 4. Gallstones. 5. Medullary nephrocalcinosis. 6. Small effusions and mild lung base atelectasis. Electronically signed by: Jairo Singh MD 10/10/2017 5:13 PM EDT
[2017-10-10 20:00] VITALS: BP 114/58; PULSE 91; RESP 18; TEMP 97.9; O2SAT 98
[2017-10-10] MEDS: MELATONIN 5 MG TAB PO PRN (21:04)
[2017-10-11] VITALS: BP 119/57; PULSE 87; RESP 18; TEMP 97.3; O2SAT 96
[2017-10-11 04:00] VITALS: BP 117/62; PULSE 93; RESP 18; TEMP 97.8; O2SAT 97
[2017-10-11] MEDS: CHLORHEXIDINE GLUCONATE 2 % 1 PACK (2 CLOTHS) TOP SCH (04:00)
[2017-10-11] MEDS: hydrALAZINE HCL 25 MG TAB PO SCH ×3 (06:01→22:35)
[2017-10-11 07:26] LABS: HEMATOCRIT 26.2 % (39.0-51.0); HEMOGLOBIN 9.2 GM/DL (13.0-17.0); MEAN CELL VOLUME 99.7 FL (80.0-100.0); MEAN CORPUSCULAR HEMOGLOBIN 35.1 PG (27.0-34.0); MEAN CORPUSCULAR HGB CONC 35.2 % (32.0-36.0); MEAN PLATELET VOLUME 7.9 FL (7.0-11.0); PLATELET COUNT 59 TH/MM3 (150-450); RED BLOOD COUNT 2.63 MIL/MM3 (4.50-5.90); RED CELL DISTRIBUTION WIDTH 14.7 % (11.6-17.2); WHITE BLOOD COUNT 5.7 TH/MM3 (4.0-11.0)
[2017-10-11 07:43] LABS: BICARBONATE 20.3 MEQ/L (21.0-32.0); CALCIUM 8.2 MG/DL (8.5-10.1); CREATININE 1.11 MG/DL (0.60-1.30); MAGNESIUM 1.5 MG/DL (1.5-2.5)
[2017-10-11 08:00] VITALS: BP 107/53; PULSE 86; RESP 17; O2SAT 96
[2017-10-11] MEDS: SPIRONOLACTONE 25 MG TAB PO SCH (09:50)
[2017-10-11] MEDS: FUROSEMIDE 40 MG TAB PO SCH (09:50)
[2017-10-11] MEDS: PANTOPRAZOLE SOD 40 MG DELAYED RELEASE TAB PO SCH (09:50)
[2017-10-11] MEDS: MULTIVITAMIN TAB PO SCH (09:50)
[2017-10-11] MEDS: THIAMINE HCL 100 MG TAB PO SCH (09:51)
[2017-10-11] MEDS: DOCUSATE SODIUM 50 MG/SENNA 8.6 MG TAB PO SCH ×2 (09:51→22:35)
[2017-10-11] MEDS: LACTULOSE SYRUP 20 GM/30 ML CUP PO SCH ×3 (09:51→18:00)
[2017-10-11] MEDS: SODIUM CHLORIDE 0.9% FLUSH 10 ML FLUSH IV FLUSH SCH ×2 (09:53→22:35)
[2017-10-11] MEDS: ARTIFICIAL TEARS OPTH SOLN 15 ML BTL EACH EYE SCH ×3 (09:55→18:00)
[2017-10-11 11:00] VITALS: BP 112/56; PULSE 87; RESP 16; TEMP 98; O2SAT 98
--- NOTE | 2017-10-11 12:15 | HHI.PR ---
Subjective Remarks The pt wanted to be repositioned in bed. He said he needed a new urinal. He said he had a CT scan last night. Discussed with nursing. Objective Vitals Vital Signs Date Time Temp Pulse Resp B/P (MAP) Pulse Ox O2 Delivery O2 Flow Rate FiO2 10/11/17 08:00 86 17 107/53 (71) 96 10/11/17 04:00 97.8 93 18 117/62 (80) 97 10/11/17 00:00 97.3 87 18 119/57 (77) 96 10/10/17 20:00 97.9 91 18 114/58 (76) 98 10/10/17 16:00 97.8 89 17 112/59 (76) 97 I/O 10/10/17 10/10/17 10/10/17 10/11/17 10/11/17 10/11/17 07:00 15:00 23:00 07:00 15:00 23:00 Output Total 350 ml 400 ml Balance -350 ml -400 ml Output Urine Total 350 ml 400 ml # Voids 2 3 4 # Bowel Movements 1 3 1 Result Diagram: 10/11/17 0700 10/11/17 07 Imaging Last Impressions Abdomen/Pelvis CT 10/10/17 Signed Impressions: CONCLUSION: 1. Cirrhotic liver appearance with prominent stigmata of portal hypertension. 2. Nonspecific lymphadenopathy. 3. Mild ascites. 4. Gallstones. 5. Medullary nephrocalcinosis. 6. Small effusions and mild lung base atelectasis. Renal Ultrasound 10/08/17 Signed Impressions: CONCLUSION: 1. There are no findings to indicate obstruction. Kidneys have a normal appear ance. 2. Small volume of ascites in this patient with cirrhosis. Abdomen Ultrasound 10/06/17 Signed Impressions: CONCLUSION: 1. Small amount of ascites along the edge of the liver. 2. Nodularity of the hepatic contour suggesting cirrhosis. Liver Ultrasound 10/04/17 Signed Impressions: CONCLUSION: 1. No specific abnormality is identified to explain the patient's fever. 2. However, there are persistent findings indicating cirrhosis with findings o f portal hypertension including splenomegaly, recanalized paraumbilical vein, a nd ascites. 3. There is hepatofugal flow in the main portal vein. Chest X-Ray 10/04/17 Signed Impressions: CONCLUSION: No acute cardiopulmonary process. Head CT 09/23/17 0000 Signed Impressions: Service Date/Time: Saturday, September 23, 2017 09:47 - CONCLUSION: Interval placement of subdural drain Jairo Singh MD Shoulder X-Ray 09/09/17 0000 Signed Impressions: Service Date/Time: Saturday, September 09, 2017 21:01 - CONCLUSION: 1. No acute bony abnormality. Vito Minor MD Lower Extremity Ultrasound 09/09/17 0000 Signed Impressions: Service Date/Time: Saturday, September 09, 2017 21:41 - CONCLUSION: Normal examination. Henok Young MD Elbow X-Ray 09/09/17 0000 Signed Impressions: Service Date/Time: Saturday, September 09, 2017 20:53 - CONCLUSION: 1. No acute bony abnormalities. Vito Minor MD Objective Remarks GENERAL: This is a well-nourished, well-developed patient, in no apparent distress. CARDIOVASCULAR: RRR. RESPIRATORY: Fair air entry bilaterally. No W, R, or R GASTROINTESTINAL: Abdomen soft, non-tender, nondistended. Positive bowel sounds MUSCULOSKELETAL: Extremities without clubbing, cyanosis, or edema. Pedal pulses appreciated NEUROLOGICAL: Awake and alert. Moves all extremity. Normal speech.no focal neurological deficit Procedures None A/P Problem List: (1) Liver cirrhosis ICD Code: K74.60 - Unspecified cirrhosis of liver (2) Spleen hematoma ICD Code: S36.029A - Unspecified contusion of spleen, initial encounter Status: Acute (3) Hyperbilirubinemia ICD Code: E80.6 - Other disorders of bilirubin metabolism Status: Acute (4) Splenomegaly ICD Code: R16.1 - Splenomegaly, not elsewhere classified Status: Chronic (5) Ascites ICD Code: R18.8 - Other ascites Status: Chronic (6) Hypokalemia ICD Code: E87.6 - Hypokalemia Status: Resolved (7) Macrocytic anemia ICD Code: D53.9 - Nutritional anemia, unspecified Status: Chronic (8) HTN (hypertension) ICD Code: I10 - Essential (primary) hypertension Status: Chronic (9) Fall ICD Code: W19.XXXA - Unspecified fall, initial encounter Status: Acute (10) Left shoulder pain ICD Code: M25.512 - Pain in left shoulder (11) Edema of left lower extremity ICD Code: R60.0 - Localized edema (12) Hyperammonemia ICD Code: E72.20 - Disorder of urea cycle metabolism, unspecified (13) Coagulopathy ICD Code: D68.9 - Coagulation defect, unspecified Status: Acute (14) Diarrhea ICD Code: R19.7 - Diarrhea, unspecified Assessment and Plan Acute/subacute/chronic right subdural hematoma -3.5 cm thickness with compression of the sulci/gyri with the right to left subfalcine shift 4.7 mm/ Acute encephalopathy CT brain 09/18 revealed acute, subacute and chronic components to right subdural hematoma. 3.5 cm. Compression of the sulci and gyri. Right frontal right-to- left subfalcine shift approximately [address] brain 09/23 - interval placement of a right frontal subdural drain. There has been replacement of some of the frontal subdural fluid with air. Otherwise little change in the configuration with persistent grossly stable subfalcine shift in lateral ventricular compression with effacement of hemispheric cortical sulci. Status post right bur hole by Dr. Carranza. Drain have since been removed. Patient was placed on levetiracetam 500 mg IV twice daily 7 days. EEG with mild to moderate encephalopathic changes; No epileptic activity. - Blood pressure control keep systolic blood pressure less than 140. - Multivitamin, thiamine and folate daily 3 days has been completed. - Seizure precautions. - Pain medications as needed. E. coli bacteremia ID consult appreciated. Repeat CT abdomen unremarkable. - continue ceftriaxone per ID. - Follow repeat blood and urine cultures. Hepatitis C genotype 1A viral load positive/ LA class B esophagitis/ Portal hypertension/ Abdominal ascites/ Elevated transaminases CT abdomen/pelvis 09/09 revealed abdominal ascites, esophageal/gastric varices. Splenomegaly. Shrunken liver. Small splenic hematoma. EGD 09/12 revealed [place] class B esophagitis, gastric erythema of the antrum gastric and duodenal bulb/ second portion, portal hypertension/gastropathy. - Patient is on pantoprazole 40 mg po daily/home medications pantoprazole. - Diet as tolerated. - Outpatient evaluation for positive hepatitis C genotype 1A for treatment. - Recheck liver function tests as clinically indicated. Stable. - Continue lactulose 3 times daily. - Add Ensure 3 times daily. - Continue diuretics. Tobaccoism Chronic. - Nasal cannula to maintain saturations greater than equal to 92%. - Incentive spirometry while awake. - Tobacco cessation self-education booklet will be provided. Acute kidney injury Avoid nephrotoxic medications. KAMILAH inhibitor has been held. Medullary nephrocalcinosis noted on CT abdomen. - continue Aldactone and Lasix as creatinine is returning to baseline. - Accurate I's and O - follow up with nephrology. Macrocytic anemia/ Thrombocytopenia/ Coagulopathic state secondary to underlying liver disease S/P Vitamin K. Received 4 pack platelets since admission along with 4 FFP, 2 liquid plasma, 2 cryoprecipitate. - follow CBC Chronic low back pain ARTEMIO 1:320 nucleolar positive with positive double-stranded DNA. Possibly also secondary to underlying liver disease/hepatitis. - Will need outpatient rheumatology workup - PT evaluate and treat. Prophylax -GI -pantoprazole -DVT -SCD/holding pharmacological prophylaxis in light of acute subdural hematoma Discharge Planning Needs placement, ID clearance Problem Qualifiers (1) Liver cirrhosis: (2) Spleen hematoma: Qualified Codes: S36.029A - Unspecified contusion of spleen, initial encounter (3) Ascites: Qualified Codes: R18.8 - Other ascites (4) HTN (hypertension): Qualified Codes: I10 - Essential (primary) hypertension (5) Fall: Qualified Codes: W19.XXXA - Unspecified fall, initial encounter (6) Left shoulder pain: Qualified Codes: M25.512 - Pain in left shoulder (7) Diarrhea: Qualified Codes: R19.7 - Diarrhea, unspecified Malik Jones DO Oct 11, 2017 12:15
[2017-10-11] MEDS: cefTRIAXone INJ 2,000 MG in SODIUM CHLORIDE 0.9% INJ 100 ML IV SCH (13:36)
--- NOTE | 2017-10-11 14:53 | HHI.IDPN ---
Subjective Subjective Remarks Patient is a 62-year-old male, with known history of significant alcohol use, presented to the hospital after a fall. He was complaining of some left-sided chest pain, as well as pain on the left side of his trunk including shoulder and abdomen. He had a CT of the abdomen and pelvis which revealed portal gastropathy, ascites, liver cirrhosis, and a possible subcapsular splenic hematoma. Patient was seen by GI, and upper endoscopy was done which showed esophagitis, gastritis, portal hypertensive gastropathy, and some inflammation of the duodenum. On September 18, he was transferred to the ICU for acute onset of left-sided weakness. CT of the head showed subdural hematoma. He had placement of a bur hole, on 09/20, and this was removed on 09/25. His neurological status improved, and he still has some residual left-sided weakness. Patient was transitioned to the medical floor, and starting yesterday he developed a fever of 102. He still febrile today, and so infectious disease consultation has been requested to evaluate the patient. Patient denies any significant coughing or any chest pain or shortness of breath. He has not had any nausea or vomiting, no abdominal pain. He has had on and off diarrhea, but he is on lactulose. He has no Rooney catheter, and he denies any problem urinating. Patient has no central line, and only has peripheral IV. Patient was started on antibiotics and is on IV Zosyn, and has received a dose of IV vancomycin. His chest x-ray is normal. He had 2 blood cultures done today. Patient currently feels weak. He states he has done some ambulation. Patient has not had any fever since admission. He has not been on any antibiotics. Infectious disease consultation has been requested to evaluate the patient with no fevers. Notes reviewed Afebrile BC with E coli Has one new (+) BC with Ecoli from 10/05 UC negative - sent after he had ABx Repeat UA still with pyuria but better CT A/P ok No abdominal pain or back pain No N/V No rash Renal US no hydronephrosis Antibiotics Rocephin Current Medications Medications (Trade) Dose Ordered Sig/Tosin Route Start Time Stop Time Status Last Admin (NS Flush) 2 ml UNSCH PRN IV FLUSH 09/09/17 09:15 09/24/17 21:30 (NS Flush) 2 ml BID IV FLUSH 09/09/17 21:00 10/11/17 09:53 (Zofran Inj) 4 mg Q6H PRN IVP 09/09/17 09:15 09/28/17 21:48 (Narcan Inj) 0.4 mg UNSCH PRN IV PUSH 09/09/17 09:15 (Toña-Colace) 1 tab BID PO 09/09/17 21:00 10/11/17 09:51 (Milk Of Magnesia Liq) 30 ml Q12H PRN PO 09/09/17 09:15 10/01/17 02:38 (Senokot) 17.2 mg Q12H PRN PO 09/09/17 09:15 (Dulcolax Supp) 10 mg DAILY PRN RECTAL 09/09/17 09:15 (Romazicon Inj) 0.2 mg Q1M PRN IV PUSH 09/09/17 20:00 (Ativan) 1 mg Q4H PRN PO 09/09/17 20:00 (Ativan Inj) 1 mg Q4H PRN IV PUSH 09/09/17 20:00 (Ativan) 2 mg Q2H PRN PO 09/09/17 20:00 (Ativan Inj) 2 mg Q2H PRN IV PUSH 09/09/17 20:00 (Ativan Inj) 2 mg Q1H PRN IV PUSH 09/09/17 20:00 (Ativan Inj) 2 mg Q15M PRN IV PUSH 09/09/17 20:00 (Aldactone) 25 mg DAILY PO 09/09/17 20:00 10/11/17 09:50 (Catapres) 0.1 mg Q6H PRN PO 09/10/17 12:45 10/03/17 16:33 (Lasix) 40 mg DAILY PO 09/15/17 13:30 10/11/17 09:50 (Trandate Inj) 10 mg Q1HR PRN IV PUSH 09/18/17 14:15 09/21/17 03:30 Nicardipine HCl 25 mg/Sodium Chloride 250 ml @ 50 mls/hr TITRATE PRN IV 09/18/17 14:15 (Tears Naturale Opth Soln) 1 drop TID EACH EYE 09/18/17 18:00 10/10/17 09:42 (Zofran Odt) 4 mg Q6H PRN PO 09/18/17 14:45 (Albuterol Neb) 2.5 mg Q2HR NEB PRN INH 09/18/17 14:45 09/28/17 12:28 ([facility] Nursing Information) 1 Q361D XX 09/18/17 14:45 09/18/17 14:45 (Chlorhexidine 2% Cloth) 3 pack Taper DAILY@04 TOP 09/19/17 04:00 09/15/18 03:59 09/23/17 04:00 (Chlorhexidine 2% Cloth) 3 pack UNSCH PRN TOP 09/18/17 14:45 (Norvasc) 10 mg DAILY PO 09/22/17 09:00 10/11/17 09:50 (Apresoline Inj) 10 mg Q1HR PRN IV PUSH 09/21/17 12:45 (Vasotec Inj) 1.25 mg Q8H PRN IV PUSH 09/21/17 12:45 10/03/17 16:33 Clevidipine 50 ml @ 2 mls/hr TITRATE PRN IV 09/21/17 13:00 (Protonix) 40 mg DAILY PO 09/22/17 09:00 10/11/17 09:50 (Apresoline) 25 mg Q8HR PO 09/21/17 15:45 10/11/17 13:36 (Vitamin B1) 100 mg DAILY PO 09/25/17 09:00 10/11/17 09:51 (Theragran) 1 tab DAILY PO 09/25/17 09:00 10/11/17 09:50 (Tylenol) 500 mg Q4H PRN PO 09/28/17 10:45 10/06/17 23:36 (Melatonin) 5 mg HS PRN PO 09/30/17 21:00 10/10/17 21:04 (Roxicodone) 5 mg Q6H PRN PO 10/01/17 11:15 10/10/17 21:04 (Lactulose Liq) 30 ml TID PO 10/01/17 13:00 10/11/17 09:51 (Motrin) 400 mg Q6H PRN PO 10/04/17 12:00 10/04/17 12:39 Ceftriaxone Sodium 2000 mg/ Sodium Chloride 100 ml @ 200 mls/hr Q24H IV 10/07/17 14:00 10/11/17 13:36 Lines Line sites with no evidence of infection. Past Medical History Past Medical History Peptic ulcer disease Anxiety Hypertension Substance abuse Past Surgical History None Allergies: Coded Allergies: No Known Allergies (Verified Adverse Reaction, Unknown, 09/09/17) Objective . Vital Signs Date Time Temp Pulse Resp B/P (MAP) Pulse Ox O2 Delivery O2 Flow Rate FiO2 10/11/17 11:00 98.0 87 16 112/56 (74) 98 10/11/17 08:00 86 17 107/53 (71) 96 10/11/17 04:00 97.8 93 18 117/62 (80) 97 10/11/17 00:00 97.3 87 18 119/57 (77) 96 10/10/17 20:00 97.9 91 18 114/58 (76) 98 10/10/17 16:00 97.8 89 17 112/59 (76) 97 10/11/17 10/11/17 10/12/17 15:00 23:00 07:00 # Voids 4 # Bowel Movements 1 . Laboratory Tests Test 10/10/17 15:38 10/11/17 07:00 White Blood Count 7.8 TH/MM3 5.7 TH/MM3 Red Blood Count 2.76 MIL/MM3 2.63 MIL/MM3 Hemoglobin 9.9 GM/DL 9.2 GM/DL Hematocrit 27.8 % 26.2 % Mean Corpuscular Volume 100.7 FL 99.7 FL Mean Corpuscular Hemoglobin 35.8 PG 35.1 PG Mean Corpuscular Hemoglobin Concent 35.5 % 35.2 % Red Cell Distribution Width 15.2 % 14.7 % Platelet Count 71 TH/MM3 59 TH/MM3 Mean Platelet Volume 8.4 FL 7.9 FL Laboratory Tests Test 10/10/17 15:38 10/11/17 07:00 Blood Urea Nitrogen 12 MG/DL 12 MG/DL Creatinine 1.18 MG/DL 1.11 MG/DL Random Glucose 105 MG/DL 102 MG/DL Calcium Level 8.1 MG/DL 8.2 MG/DL Magnesium Level 1.7 MG/DL 1.5 MG/DL Sodium Level 131 MEQ/L 134 MEQ/L Potassium Level 3.6 MEQ/L 3.5 MEQ/L Chloride Level 101 MEQ/L 103 MEQ/L Carbon Dioxide Level 21.0 MEQ/L 20.3 MEQ/L Anion Gap 9 MEQ/L 11 MEQ/L Estimat Glomerular Filtration Rate 62 ML/MIN 67 ML/MIN Microbiology Date/Time Source Procedure Growth Status 10/09/17 12:34 Blood Peripheral Aerobic Blood Culture - Preliminary NO GROWTH IN 2 DAYS Resulted 10/09/17 12:34 Blood Peripheral Anaerobic Blood Culture - Preliminary NO GROWTH IN 2 DAYS Resulted 10/09/17 12:28 Blood Peripheral Aerobic Blood Culture - Preliminary NO GROWTH IN 2 DAYS Resulted 10/09/17 12:28 Blood Peripheral Anaerobic Blood Culture - Preliminary NO GROWTH IN 2 DAYS Resulted 10/11/17 13:15 Urine Other Urine Culture Pending Received Imaging Last Impressions Liver Ultrasound 10/04/17 0000 Signed Impressions: CONCLUSION: 1. No specific abnormality is identified to explain the patient's fever. 2. However, there are persistent findings indicating cirrhosis with findings o f portal hypertension including splenomegaly, recanalized paraumbilical vein, a nd ascites. 3. There is hepatofugal flow in the main portal vein. Chest X-Ray 10/04/17 0000 Signed Impressions: CONCLUSION: No acute cardiopulmonary process. Head CT 09/23/17 0000 Signed Impressions: Service Date/Time: Saturday, September 23, 2017 09:47 - CONCLUSION: Interval placement of subdural drain Jairo Singh MD Abdomen/Pelvis CT 09/09/17 0833 Signed Impressions: Service Date/Time: Saturday, September 09, 2017 09:09 - CONCLUSION: Extensive ascites with cirrhosis or varicosities. Prominent spleen with possible tiny subcapsular hematoma series 2 image 30. Minimal induration anterior abdominal wall left side. Gilbert Lockett MD FACR Shoulder X-Ray 09/09/17 0000 Signed Impressions: Service Date/Time: Saturday, September 09, 2017 21:01 - CONCLUSION: 1. No acute bony abnormality. Vito Minor MD Lower Extremity Ultrasound 09/09/17 0000 Signed Impressions: Service Date/Time: Saturday, September 09, 2017 21:41 - CONCLUSION: Normal examination. Henok Young MD Elbow X-Ray 09/09/17 0000 Signed Impressions: Service Date/Time: Saturday, September 09, 2017 20:53 - CONCLUSION: 1. No acute bony abnormalities. Vito Minor MD Physical Exam GENERAL: Patient is a thin, well-developed male, awake and alert, NAD SKIN: Warm and dry. Has scattered petechial rash, and also with spider angiomatas. HEAD: Normocephalic. No temporal wasting, or tenderness. previous Estrada hole sit dry with no drainage or redness EYES: [place] conjunctiva. No petechia or hemorrhage. Pupils equal, round and reactive to light. Extraocular movements full and intact. Has scleral icterus. No injection or drainage. EARS, NOSE AND THROAT: Nose without bleeding or purulent nasal discharge. No sinus tenderness. Mucous membranes pink and moist. No oral lesions noted. NECK: Trachea midline. Supple and not tender, no meningeal signs CARDIOVASCULAR: Regular rate and rhythm. No murmurs, rubs or gallops heard RESPIRATORY: Clear to auscultation. Breath sounds equal bilaterally. No rales , wheezing or rhonchi ABDOMEN: Soft, nondistended. Bowel sounds present and normoactive. No guarding. No rebound. No organomegaly. Has varicosities in upper abdomen. Mild discomfort in lower abdomen. EXTREMITIES: No clubbing, cyanosis, or edema. No joint effusion, has good ROM. No calf tenderness. NEUROLOGICAL: Awake and alert. Cranial nerves grossly intact. Has weakness L side about 4/5 PSYCHIATRIC: Normal affect, calm and cooperative. LINE: No evidence of infection Assessment & Plan Remarks E coli Sepsis, due to UTI - no other focus found UTI, no rooney ETOH liver cirrhosis with portal HTN Recent fall, has SDH, drained Acute renal failure: likely prerenal, sepsis related. - creatinine improving RECOMMENDATION Continue Rocephin this weekend - if no new (+) BC switch to po Levaquin Follow C/S Monitor temps Monitor progress Raya Sequeira MD Oct 11, 2017 14:53
[2017-10-11 16:00] VITALS: BP 116/62; PULSE 91; RESP 18; TEMP 98.2; O2SAT 97
[2017-10-11 20:00] VITALS: BP 129/61; PULSE 91; RESP 17; TEMP 98.5; O2SAT 96
[2017-10-11] MEDS: MELATONIN 5 MG TAB PO PRN (22:35)
[2017-10-12 01:20] VITALS: BP 124/58; PULSE 87; RESP 18; TEMP 98.3; O2SAT 96
[2017-10-12 04:00] VITALS: BP 109/55; PULSE 81; RESP 18; TEMP 98.1; O2SAT 96
[2017-10-12] MEDS: CHLORHEXIDINE GLUCONATE 2 % 1 PACK (2 CLOTHS) TOP SCH (04:00)
[2017-10-12] MEDS: hydrALAZINE HCL 25 MG TAB PO SCH ×3 (06:06→21:59)
[2017-10-12 08:00] VITALS: BP 114/56; PULSE 82; RESP 16; TEMP 98.1; O2SAT 100
[2017-10-12] MEDS: PANTOPRAZOLE SOD 40 MG DELAYED RELEASE TAB PO SCH (09:08)
[2017-10-12] MEDS: THIAMINE HCL 100 MG TAB PO SCH (09:08)
[2017-10-12] MEDS: FUROSEMIDE 40 MG TAB PO SCH (09:08)
[2017-10-12] MEDS: MULTIVITAMIN TAB PO SCH (09:09)
[2017-10-12] MEDS: SPIRONOLACTONE 25 MG TAB PO SCH (09:09)
[2017-10-12] MEDS: SODIUM CHLORIDE 0.9% FLUSH 10 ML FLUSH IV FLUSH SCH ×2 (09:09→21:59)
[2017-10-12] MEDS: DOCUSATE SODIUM 50 MG/SENNA 8.6 MG TAB PO SCH ×2 (09:09→21:00)
[2017-10-12] MEDS: LACTULOSE SYRUP 20 GM/30 ML CUP PO SCH ×3 (09:09→17:08)
[2017-10-12] MEDS: ARTIFICIAL TEARS OPTH SOLN 15 ML BTL EACH EYE SCH ×3 (09:09→17:08)
[2017-10-12 12:00] VITALS: BP 146/70; PULSE 74; RESP 16; TEMP 98; O2SAT 95
[2017-10-12] MEDS: cefTRIAXone INJ 2,000 MG in SODIUM CHLORIDE 0.9% INJ 100 ML IV SCH (12:44)
--- NOTE | 2017-10-12 15:11 | HHI.PR ---
Subjective Remarks The patient was resting comfortably. He had a friend at the bedside. He wanted to know what he was being treated for and when he would be able to move in with his daughter in [place]. Discussed with nursing. Objective Vitals Vital Signs Date Time Temp Pulse Resp B/P (MAP) Pulse Ox O2 Delivery O2 Flow Rate FiO2 10/12/17 12:00 98.0 74 16 146/70 (95) 95 10/12/17 08:00 98.1 82 16 114/56 (75) 100 10/12/17 04:00 98.1 81 18 109/55 (73) 96 10/12/17 01:20 98.3 87 18 124/58 (80) 96 10/11/17 20:00 98.5 91 17 129/61 (83) 96 10/11/17 16:00 98.2 91 18 116/62 (80) 97 I/O 10/11/17 10/11/17 10/11/17 10/12/17 10/12/17 10/12/17 07:00 15:00 23:00 07:00 15:00 23:00 Output Total 400 ml 300 ml 200 ml Balance -400 ml -300 ml -200 ml Output Urine Total 400 ml 300 ml 200 ml # Voids 4 4 # Bowel Movements 1 2 Result Diagram: 10/11/17 0700 10/11/17 0700 Imaging Last Impressions Abdomen/Pelvis CT 10/10/17 0000 Signed Impressions: CONCLUSION: 1. Cirrhotic liver appearance with prominent stigmata of portal hypertension. 2. Nonspecific lymphadenopathy. 3. Mild ascites. 4. Gallstones. 5. Medullary nephrocalcinosis. 6. Small effusions and mild lung base atelectasis. Renal Ultrasound 10/08/17 Signed Impressions: CONCLUSION: 1. There are no findings to indicate obstruction. Kidneys have a normal appear ance. 2. Small volume of ascites in this patient with cirrhosis. Abdomen Ultrasound 10/06/17 Signed Impressions: CONCLUSION: 1. Small amount of ascites along the edge of the liver. 2. Nodularity of the hepatic contour suggesting cirrhosis. Liver Ultrasound 10/04/17 0000 Signed Impressions: CONCLUSION: 1. No specific abnormality is identified to explain the patient's fever. 2. However, there are persistent findings indicating cirrhosis with findings o f portal hypertension including splenomegaly, recanalized paraumbilical vein, a nd ascites. 3. There is hepatofugal flow in the main portal vein. Chest X-Ray 10/04/17 0000 Signed Impressions: CONCLUSION: No acute cardiopulmonary process. Head CT 09/23/17 0000 Signed Impressions: Service Date/Time: Saturday, September 23, 2017 09:47 - CONCLUSION: Interval placement of subdural drain Jairo Singh MD Shoulder X-Ray 09/09/17 Signed Impressions: Service Date/Time: Saturday, September 09, 2017 21:01 - CONCLUSION: 1. No acute bony abnormality. Vito Minor MD Lower Extremity Ultrasound 09/09/17 0000 Signed Impressions: Service Date/Time: Saturday, September 09, 2017 21:41 - CONCLUSION: Normal examination. Henok Young MD Elbow X-Ray 09/09/17 0000 Signed Impressions: Service Date/Time: Saturday, September 09, 2017 20:53 - CONCLUSION: 1. No acute bony abnormalities. Vito Minor MD Objective Remarks GENERAL: This is a well-nourished, well-developed patient, in no apparent distress. CARDIOVASCULAR: RRR. RESPIRATORY: Fair air entry bilaterally. No W, R, or R GASTROINTESTINAL: Abdomen soft, non-tender, nondistended. Positive bowel sounds MUSCULOSKELETAL: Extremities without clubbing, cyanosis, or edema. Pedal pulses appreciated NEUROLOGICAL: Awake and alert. Moves all extremity. Normal speech.no focal neurological deficit Procedures None A/P Problem List: (1) Liver cirrhosis ICD Code: K74.60 - Unspecified cirrhosis of liver (2) Spleen hematoma ICD Code: S36.029A - Unspecified contusion of spleen, initial encounter Status: Acute (3) Hyperbilirubinemia ICD Code: E80.6 - Other disorders of bilirubin metabolism Status: Acute (4) Splenomegaly ICD Code: R16.1 - Splenomegaly, not elsewhere classified Status: Chronic (5) Ascites ICD Code: R18.8 - Other ascites Status: Chronic (6) Hypokalemia ICD Code: E87.6 - Hypokalemia Status: Resolved (7) Macrocytic anemia ICD Code: D53.9 - Nutritional anemia, unspecified Status: Chronic (8) HTN (hypertension) ICD Code: I10 - Essential (primary) hypertension Status: Chronic (9) Fall ICD Code: W19.XXXA - Unspecified fall, initial encounter Status: Acute (10) Left shoulder pain ICD Code: M25.512 - Pain in left shoulder (11) Edema of left lower extremity ICD Code: R60.0 - Localized edema (12) Hyperammonemia ICD Code: E72.20 - Disorder of urea cycle metabolism, unspecified (13) Coagulopathy ICD Code: D68.9 - Coagulation defect, unspecified Status: Acute (14) Diarrhea ICD Code: R19.7 - Diarrhea, unspecified Assessment and Plan Acute/subacute/chronic right subdural hematoma -3.5 cm thickness with compression of the sulci/gyri with the right to left subfalcine shift 4.7 mm/ Acute encephalopathy CT brain 09/18 revealed acute, subacute and chronic components to right subdural hematoma. 3.5 cm. Compression of the sulci and gyri. Right frontal right-to- left subfalcine shift approximately [address] brain 09/23 - interval placement of a right frontal subdural drain. There has been replacement of some of the frontal subdural fluid with air. Otherwise little change in the configuration with persistent grossly stable subfalcine shift in lateral ventricular compression with effacement of hemispheric cortical sulci. Status post right bur hole by Dr. Carranza. Drain have since been removed. Patient was placed on levetiracetam 500 mg IV twice daily 7 days. EEG with mild to moderate encephalopathic changes; No epileptic activity. - Blood pressure control keep systolic blood pressure less than 140. - Multivitamin, thiamine and folate daily 3 days has been completed. - Seizure precautions. - Pain medications as needed. E. coli bacteremia ID consult appreciated. Repeat CT abdomen unremarkable. - continue ceftriaxone per ID. If afebrile over weekend may change to PO on Saturday. - Follow repeat blood and urine cultures. Hepatitis C genotype 1A viral load positive/ LA class B esophagitis/ Portal hypertension/ Abdominal ascites/ Elevated transaminases CT abdomen/pelvis 09/09 revealed abdominal ascites, esophageal/gastric varices. Splenomegaly. Shrunken liver. Small splenic hematoma. EGD 09/12 revealed LA class B esophagitis, gastric erythema of the antrum gastric and duodenal bulb/ second portion, portal hypertension/gastropathy. - Patient is on pantoprazole 40 mg po daily/home medications pantoprazole. - Diet as tolerated. - Outpatient evaluation for positive hepatitis C genotype 1A for treatment. - Recheck liver function tests as clinically indicated. Stable. - Continue lactulose 3 times daily. - Add Ensure 3 times daily. - Continue diuretics. Tobaccoism Chronic. - Nasal cannula to maintain saturations greater than equal to 92%. - Incentive spirometry while awake. - Tobacco cessation self-education booklet will be provided. Acute kidney injury Avoid nephrotoxic medications. KAMILAH inhibitor has been held. Medullary nephrocalcinosis noted on CT abdomen. - continue Aldactone and Lasix as creatinine is returning to baseline. - Accurate I's and O - follow up with nephrology. Macrocytic anemia/ Thrombocytopenia/ Coagulopathic state secondary to underlying liver disease S/P Vitamin K. Received 4 pack platelets since admission along with 4 FFP, 2 liquid plasma, 2 cryoprecipitate. - follow CBC Chronic low back pain ARTEMIO 1:320 nucleolar positive with positive double-stranded DNA. Possibly also secondary to underlying liver disease/hepatitis. - Will need outpatient rheumatology workup - PT evaluate and treat. Hypokalemia Potassium level 3.5. - replete and monitor. Prophylax -GI -pantoprazole -DVT -SCD/holding pharmacological prophylaxis in light of acute subdural hematoma Discharge Planning Needs placement, ID clearance Problem Qualifiers (1) Liver cirrhosis: (2) Spleen hematoma: Qualified Codes: S36.029A - Unspecified contusion of spleen, initial encounter (3) Ascites: Qualified Codes: R18.8 - Other ascites (4) HTN (hypertension): Qualified Codes: I10 - Essential (primary) hypertension (5) Fall: Qualified Codes: W19.XXXA - Unspecified fall, initial encounter (6) Left shoulder pain: Qualified Codes: M25.512 - Pain in left shoulder (7) Diarrhea: Qualified Codes: R19.7 - Diarrhea, unspecified Malik Jones DO Oct 12, 2017 15:11
[2017-10-12] MEDS ORDERED: POTASSIUM CHLORIDE 20 MEQ CONTROLLED RELEASE TAB PO ONE (15:15)
[2017-10-12 17:01] VITALS: BP 117/62; PULSE 73; RESP 16; TEMP 98.1; O2SAT 96
[2017-10-12 19:38] VITALS: BP 117/57; PULSE 92; RESP 17; TEMP 98.1; O2SAT 97
[2017-10-12] MEDS: MELATONIN 5 MG TAB PO PRN (21:58)
[2017-10-13] VITALS: BP 110/58; PULSE 81; RESP 18; TEMP 98.1; O2SAT 97
[2017-10-13 04:00] VITALS: BP 120/60; PULSE 80; RESP 16; TEMP 98.3; O2SAT 98
[2017-10-13] MEDS: CHLORHEXIDINE GLUCONATE 2 % 1 PACK (2 CLOTHS) TOP SCH (04:00)
[2017-10-13] MEDS: hydrALAZINE HCL 25 MG TAB PO SCH ×3 (06:00→21:06)
[2017-10-13 08:15] LABS: HEMATOCRIT 26.9 % (39.0-51.0); HEMOGLOBIN 9.5 GM/DL (13.0-17.0); MEAN CELL VOLUME 100.7 FL (80.0-100.0); MEAN CORPUSCULAR HEMOGLOBIN 35.4 PG (27.0-34.0); MEAN CORPUSCULAR HGB CONC 35.2 % (32.0-36.0); MEAN PLATELET VOLUME 8.2 FL (7.0-11.0); PLATELET COUNT 59 TH/MM3 (150-450); RED BLOOD COUNT 2.68 MIL/MM3 (4.50-5.90); RED CELL DISTRIBUTION WIDTH 15.7 % (11.6-17.2); WHITE BLOOD COUNT 4.9 TH/MM3 (4.0-11.0)
[2017-10-13 08:41] LABS: BICARBONATE 20.1 MEQ/L (21.0-32.0); CALCIUM 8.2 MG/DL (8.5-10.1); MAGNESIUM 1.6 MG/DL (1.5-2.5)
[2017-10-13 08:44] LABS: CREATININE 0.99 MG/DL (0.60-1.30)
[2017-10-13 08:54] VITALS: BP 115/62; PULSE 80; RESP 20; TEMP 98.4; O2SAT 97
[2017-10-13] MEDS: LACTULOSE SYRUP 20 GM/30 ML CUP PO SCH ×3 (09:10→17:41)
[2017-10-13] MEDS: THIAMINE HCL 100 MG TAB PO SCH (09:10)
[2017-10-13] MEDS: PANTOPRAZOLE SOD 40 MG DELAYED RELEASE TAB PO SCH (09:10)
[2017-10-13] MEDS: MULTIVITAMIN TAB PO SCH (09:10)
[2017-10-13] MEDS: SPIRONOLACTONE 25 MG TAB PO SCH (09:11)
[2017-10-13] MEDS: FUROSEMIDE 40 MG TAB PO SCH (09:11)
[2017-10-13] MEDS: DOCUSATE SODIUM 50 MG/SENNA 8.6 MG TAB PO SCH ×2 (09:11→21:00)
[2017-10-13] MEDS: SODIUM CHLORIDE 0.9% FLUSH 10 ML FLUSH IV FLUSH SCH ×2 (09:16→21:07)
[2017-10-13] MEDS: ARTIFICIAL TEARS OPTH SOLN 15 ML BTL EACH EYE SCH ×3 (09:16→17:41)
[2017-10-13 12:01] VITALS: BP 117/56; PULSE 83; RESP 20; TEMP 97.8; O2SAT 99
[2017-10-13] MEDS: cefTRIAXone INJ 2,000 MG in SODIUM CHLORIDE 0.9% INJ 100 ML IV SCH (12:49)
--- NOTE | 2017-10-13 15:05 | HHI.PR ---
Subjective Remarks The patient was sitting up in a chair by the window. He wanted to know what the plan was. Nursing was at the bedside. No acute concerns. Objective Vitals Vital Signs Date Time Temp Pulse Resp B/P (MAP) Pulse Ox O2 Delivery O2 Flow Rate FiO2 10/13/17 12:01 97.8 83 20 117/56 (76) 99 10/13/17 08:54 98.4 80 20 115/62 (79) 97 10/13/17 04:00 98.3 80 16 120/60 (80) 98 10/13/17 00:00 98.1 81 18 110/58 (75) 97 10/12/17 19:38 98.1 92 17 117/57 (77) 97 10/12/17 17:01 98.1 73 16 117/62 (80) 96 I/O 10/12/17 10/12/17 10/12/17 10/13/17 10/13/17 10/13/17 06:59 14:59 22:59 06:59 14:59 22:59 Intake Total 640 ml Output Total 300 ml 200 ml 175 ml 750 ml 150 ml Balance -300 ml -200 ml -175 ml -110 ml -150 ml Intake Oral 640 ml Output Urine Total 300 ml 200 ml 175 ml 750 ml 150 ml # Voids 4 # Bowel Movements 2 1 2 Result Diagram: 10/13/17 0650 10/13/17 0650 Imaging Last Impressions Abdomen/Pelvis CT 10/10/17 0000 Signed Impressions: CONCLUSION: 1. Cirrhotic liver appearance with prominent stigmata of portal hypertension. 2. Nonspecific lymphadenopathy. 3. Mild ascites. 4. Gallstones. 5. Medullary nephrocalcinosis. 6. Small effusions and mild lung base atelectasis. Renal Ultrasound 10/08/17 0000 Signed Impressions: CONCLUSION: 1. There are no findings to indicate obstruction. Kidneys have a normal appear ance. 2. Small volume of ascites in this patient with cirrhosis. Abdomen Ultrasound 10/06/17 0000 Signed Impressions: CONCLUSION: 1. Small amount of ascites along the edge of the liver. 2. Nodularity of the hepatic contour suggesting cirrhosis. Liver Ultrasound 10/04/17 0000 Signed Impressions: CONCLUSION: 1. No specific abnormality is identified to explain the patient's fever. 2. However, there are persistent findings indicating cirrhosis with findings o f portal hypertension including splenomegaly, recanalized paraumbilical vein, a nd ascites. 3. There is hepatofugal flow in the main portal vein. Chest X-Ray 10/04/17 0000 Signed Impressions: CONCLUSION: No acute cardiopulmonary process. Head CT 09/23/17 0000 Signed Impressions: Service Date/Time: Saturday, September 23, 2017 09:47 - CONCLUSION: Interval placement of subdural drain Jairo Singh MD Shoulder X-Ray 09/09/17 Signed Impressions: Service Date/Time: Saturday, September 09, 2017 21:01 - CONCLUSION: 1. No acute bony abnormality. Vito Minor MD Lower Extremity Ultrasound 09/09/17 0000 Signed Impressions: Service Date/Time: Saturday, September 09, 2017 21:41 - CONCLUSION: Normal examination. Henok Young MD Elbow X-Ray 09/09/17 Signed Impressions: Service Date/Time: Saturday, September 09, 2017 20:53 - CONCLUSION: 1. No acute bony abnormalities. Vito Minor MD Objective Remarks GENERAL: This is a well-nourished, well-developed patient, in no apparent distress. CARDIOVASCULAR: RRR. RESPIRATORY: Fair air entry bilaterally. No W, R, or R GASTROINTESTINAL: Abdomen soft, non-tender, nondistended. Positive bowel sounds MUSCULOSKELETAL: Extremities without clubbing, cyanosis, or edema. Pedal pulses appreciated NEUROLOGICAL: Awake and alert. Moves all extremity. Normal speech.no focal neurological deficit Procedures None A/P Problem List: (1) Liver cirrhosis ICD Code: K74.60 - Unspecified cirrhosis of liver (2) Spleen hematoma ICD Code: S36.029A - Unspecified contusion of spleen, initial encounter Status: Acute (3) Hyperbilirubinemia ICD Code: E80.6 - Other disorders of bilirubin metabolism Status: Acute (4) Splenomegaly ICD Code: R16.1 - Splenomegaly, not elsewhere classified Status: Chronic (5) Ascites ICD Code: R18.8 - Other ascites Status: Chronic (6) Hypokalemia ICD Code: E87.6 - Hypokalemia Status: Resolved (7) Macrocytic anemia ICD Code: D53.9 - Nutritional anemia, unspecified Status: Chronic (8) HTN (hypertension) ICD Code: I10 - Essential (primary) hypertension Status: Chronic (9) Fall ICD Code: W19.XXXA - Unspecified fall, initial encounter Status: Acute (10) Left shoulder pain ICD Code: M25.512 - Pain in left shoulder (11) Edema of left lower extremity ICD Code: R60.0 - Localized edema (12) Hyperammonemia ICD Code: E72.20 - Disorder of urea cycle metabolism, unspecified (13) Coagulopathy ICD Code: D68.9 - Coagulation defect, unspecified Status: Acute (14) Diarrhea ICD Code: R19.7 - Diarrhea, unspecified Assessment and Plan Acute/subacute/chronic right subdural hematoma -3.5 cm thickness with compression of the sulci/gyri with the right to left subfalcine shift 4.7 mm/ Acute encephalopathy CT brain 09/18 revealed acute, subacute and chronic components to right subdural hematoma. 3.5 cm. Compression of the sulci and gyri. Right frontal right-to- left subfalcine shift approximately [address] brain 09/23 - interval placement of a right frontal subdural drain. There has been replacement of some of the frontal subdural fluid with air. Otherwise little change in the configuration with persistent grossly stable subfalcine shift in lateral ventricular compression with effacement of hemispheric cortical sulci. Status post right bur hole by Dr. Carranza. Drain have since been removed. Patient was placed on levetiracetam 500 mg IV twice daily 7 days. EEG with mild to moderate encephalopathic changes; No epileptic activity. - Blood pressure control keep systolic blood pressure less than 140. - Multivitamin, thiamine and folate daily 3 days has been completed. - Seizure precautions. - Pain medications as needed. E. coli bacteremia ID consult appreciated. Repeat CT abdomen unremarkable. - continue ceftriaxone per ID. If afebrile over weekend may change to PO tomorrow. - Follow repeat blood cultures. NGTD. Hepatitis C genotype 1A viral load positive/ LA class B esophagitis/ Portal hypertension/ Abdominal ascites/ Elevated transaminases CT abdomen/pelvis 09/09 revealed abdominal ascites, esophageal/gastric varices. Splenomegaly. Shrunken liver. Small splenic hematoma. EGD 09/12 revealed LA class B esophagitis, gastric erythema of the antrum gastric and duodenal bulb/ second portion, portal hypertension/gastropathy. - Patient is on pantoprazole 40 mg po daily/home medications pantoprazole. - Diet as tolerated. - Outpatient evaluation for positive hepatitis C genotype 1A for treatment. - Recheck liver function tests as clinically indicated. Stable. - Continue lactulose 3 times daily. - Added Ensure 3 times daily. - Continue diuretics. Tobaccoism Chronic. - Nasal cannula to maintain saturations greater than equal to 92%. - Incentive spirometry while awake. - Tobacco cessation self-education booklet will be provided. Acute kidney injury Avoid nephrotoxic medications. KAMILAH inhibitor has been held. Medullary nephrocalcinosis noted on CT abdomen. - continue Aldactone and Lasix as creatinine is returning to baseline. - Accurate I's and O - follow up with nephrology. Macrocytic anemia/ Thrombocytopenia/ Coagulopathic state secondary to underlying liver disease S/P Vitamin K. Received 4 pack platelets since admission along with 4 FFP, 2 liquid plasma, 2 cryoprecipitate. - follow CBC Chronic low back pain ARTEMIO 1:320 nucleolar positive with positive double-stranded DNA. Possibly also secondary to underlying liver disease/hepatitis. - Will need outpatient rheumatology workup - PT evaluate and treat. Hypokalemia Potassium level 3.5. - replete and monitor. Prophylax -GI -pantoprazole -DVT -SCD/holding pharmacological prophylaxis in light of acute subdural hematoma Discharge Planning Needs placement, ID clearance Problem Qualifiers (1) Liver cirrhosis: (2) Spleen hematoma: Qualified Codes: S36.029A - Unspecified contusion of spleen, initial encounter (3) Ascites: Qualified Codes: R18.8 - Other ascites (4) HTN (hypertension): Qualified Codes: I10 - Essential (primary) hypertension (5) Fall: Qualified Codes: W19.XXXA - Unspecified fall, initial encounter (6) Left shoulder pain: Qualified Codes: M25.512 - Pain in left shoulder (7) Diarrhea: Qualified Codes: R19.7 - Diarrhea, unspecified Malik Jones DO Oct 13, 2017 15:05
[2017-10-13] MEDS: MAGNESIUM SULFATE 1 GM PREMIX 100 ML IV SCH ×2 (15:49→16:42)
[2017-10-13 16:37] VITALS: BP 120/61; PULSE 91; RESP 20; TEMP 97.8; O2SAT 98
[2017-10-13 20:38] VITALS: BP 119/59; PULSE 91; RESP 18; TEMP 97.6; O2SAT 98
[2017-10-13] MEDS: ACETAMINOPHEN 500 MG CPLT PO PRN (21:06)
[2017-10-13] MEDS: MELATONIN 5 MG TAB PO PRN (21:07)
[2017-10-14 01:04] VITALS: BP 126/58; PULSE 87; RESP 18; TEMP 98.3; O2SAT 97
[2017-10-14] MEDS: CHLORHEXIDINE GLUCONATE 2 % 1 PACK (2 CLOTHS) TOP SCH (04:00)
[2017-10-14 04:33] VITALS: BP 127/62; PULSE 87; RESP 18; TEMP 97.9; O2SAT 98
[2017-10-14] MEDS: hydrALAZINE HCL 25 MG TAB PO SCH ×3 (06:34→23:00)
[2017-10-14] MEDS: THIAMINE HCL 100 MG TAB PO SCH (07:42)
[2017-10-14] MEDS: MULTIVITAMIN TAB PO SCH (07:42)
[2017-10-14] MEDS: PANTOPRAZOLE SOD 40 MG DELAYED RELEASE TAB PO SCH (07:43)
[2017-10-14] MEDS: FUROSEMIDE 40 MG TAB PO SCH (07:43)
[2017-10-14] MEDS: ARTIFICIAL TEARS OPTH SOLN 15 ML BTL EACH EYE SCH ×3 (07:43→18:08)
[2017-10-14] MEDS: SPIRONOLACTONE 25 MG TAB PO SCH (07:43)
[2017-10-14] MEDS: DOCUSATE SODIUM 50 MG/SENNA 8.6 MG TAB PO SCH ×2 (07:43→20:16)
[2017-10-14] MEDS: SODIUM CHLORIDE 0.9% FLUSH 10 ML FLUSH IV FLUSH SCH ×2 (07:43→20:17)
[2017-10-14] MEDS: LACTULOSE SYRUP 20 GM/30 ML CUP PO SCH ×3 (07:45→18:08)
[2017-10-14 08:00] VITALS: BP 123/58; PULSE 89; RESP 17; TEMP 98; O2SAT 98
[2017-10-14] MEDS: LEVOFLOXACIN 750 MG TAB PO SCH (12:11)
--- NOTE | 2017-10-14 12:57 | HHI.PR ---
Subjective Remarks The patient said he was very depressed. He said his whole life is going to be changed. He said he is going to a group home in [place] near his daughter's house. Discussed with nursing. Also discussed with daughter Angelic at length over the phone. Objective Vitals Vital Signs Date Time Temp Pulse Resp B/P (MAP) Pulse Ox O2 Delivery O2 Flow Rate FiO2 10/14/17 08:00 98.0 89 17 123/58 (79) 98 10/14/17 04:33 97.9 87 18 127/62 (83) 98 10/14/17 01:04 98.3 87 18 126/58 (80) 97 10/13/17 20:38 97.6 91 18 119/59 (79) 98 10/13/17 16:37 97.8 91 20 120/61 (80) 98 I/O 10/13/17 10/13/17 10/13/17 10/14/17 10/14/17 10/14/17 06:59 14:59 22:59 06:59 14:59 22:59 Intake Total 640 ml 720 ml Output Total 750 ml 150 ml 200 ml 300 ml 325 ml Balance -110 ml -150 ml 520 ml -300 ml -325 ml Intake Oral 640 ml 720 ml Output Urine Total 750 ml 150 ml 200 ml 300 ml 325 ml # Voids 4 1 # Bowel Movements 2 2 1 Result Diagram: 10/13/17 0650 10/13/17 0650 Imaging Last Impressions Abdomen/Pelvis CT 10/10/17 0000 Signed Impressions: CONCLUSION: 1. Cirrhotic liver appearance with prominent stigmata of portal hypertension. 2. Nonspecific lymphadenopathy. 3. Mild ascites. 4. Gallstones. 5. Medullary nephrocalcinosis. 6. Small effusions and mild lung base atelectasis. Renal Ultrasound 10/08/17 0000 Signed Impressions: CONCLUSION: 1. There are no findings to indicate obstruction. Kidneys have a normal appear ance. 2. Small volume of ascites in this patient with cirrhosis. Abdomen Ultrasound 10/06/17 0000 Signed Impressions: CONCLUSION: 1. Small amount of ascites along the edge of the liver. 2. Nodularity of the hepatic contour suggesting cirrhosis. Liver Ultrasound 10/04/17 0000 Signed Impressions: CONCLUSION: 1. No specific abnormality is identified to explain the patient's fever. 2. However, there are persistent findings indicating cirrhosis with findings o f portal hypertension including splenomegaly, recanalized paraumbilical vein, a nd ascites. 3. There is hepatofugal flow in the main portal vein. Chest X-Ray 10/04/17 Signed Impressions: CONCLUSION: No acute cardiopulmonary process. Head CT 09/23/17 0000 Signed Impressions: Service Date/Time: Saturday, September 23, 2017 09:47 - CONCLUSION: Interval placement of subdural drain Jairo Singh MD Shoulder X-Ray 09/09/17 Signed Impressions: Service Date/Time: Saturday, September 09, 2017 21:01 - CONCLUSION: 1. No acute bony abnormality. Vito Minor MD Lower Extremity Ultrasound 09/09/17 Signed Impressions: Service Date/Time: Saturday, September 09, 2017 21:41 - CONCLUSION: Normal examination. Henok Young MD Elbow X-Ray 09/09/17 Signed Impressions: Service Date/Time: Saturday, September 09, 2017 20:53 - CONCLUSION: 1. No acute bony abnormalities. Vito Minor MD Objective Remarks GENERAL: This is a well-nourished, well-developed patient, in no apparent distress. CARDIOVASCULAR: RRR. RESPIRATORY: Fair air entry bilaterally. No W, R, or R GASTROINTESTINAL: Abdomen soft, non-tender, nondistended. Positive bowel sounds MUSCULOSKELETAL: Extremities without clubbing, cyanosis, or edema. Pedal pulses appreciated NEUROLOGICAL: Awake and alert. Moves all extremity. Normal speech.no focal neurological deficit PSYCH: Flattened affect Procedures None A/P Problem List: (1) Liver cirrhosis ICD Code: K74.60 - Unspecified cirrhosis of liver (2) Spleen hematoma ICD Code: S36.029A - Unspecified contusion of spleen, initial encounter Status: Acute (3) Hyperbilirubinemia ICD Code: E80.6 - Other disorders of bilirubin metabolism Status: Acute (4) Splenomegaly ICD Code: R16.1 - Splenomegaly, not elsewhere classified Status: Chronic (5) Ascites ICD Code: R18.8 - Other ascites Status: Chronic (6) Hypokalemia ICD Code: E87.6 - Hypokalemia Status: Resolved (7) Macrocytic anemia ICD Code: D53.9 - Nutritional anemia, unspecified Status: Chronic (8) HTN (hypertension) ICD Code: I10 - Essential (primary) hypertension Status: Chronic (9) Fall ICD Code: W19.XXXA - Unspecified fall, initial encounter Status: Acute (10) Left shoulder pain ICD Code: M25.512 - Pain in left shoulder (11) Edema of left lower extremity ICD Code: R60.0 - Localized edema (12) Hyperammonemia ICD Code: E72.20 - Disorder of urea cycle metabolism, unspecified (13) Coagulopathy ICD Code: D68.9 - Coagulation defect, unspecified Status: Acute (14) Diarrhea ICD Code: R19.7 - Diarrhea, unspecified Assessment and Plan Acute/subacute/chronic right subdural hematoma -3.5 cm thickness with compression of the sulci/gyri with the right to left subfalcine shift 4.7 mm/ Acute encephalopathy CT brain 09/18 revealed acute, subacute and chronic components to right subdural hematoma. 3.5 cm. Compression of the sulci and gyri. Right frontal right-to- left subfalcine shift approximately [address] brain 09/23 - interval placement of a right frontal subdural drain. There has been replacement of some of the frontal subdural fluid with air. Otherwise little change in the configuration with persistent grossly stable subfalcine shift in lateral ventricular compression with effacement of hemispheric cortical sulci. Status post right bur hole by Dr. Carranza. Drain have since been removed. Patient was placed on levetiracetam 500 mg IV twice daily 7 days. EEG with mild to moderate encephalopathic changes; No epileptic activity. - Blood pressure control keep systolic blood pressure less than 140. - Multivitamin, thiamine and folate daily 3 days has been completed. - Seizure precautions. - Pain medications as needed. - daughter is trying to arrange SNF placement in [place], but it may take a while to get approved. Case management assistance appreciated. E. coli bacteremia ID consult appreciated. Repeat CT abdomen unremarkable. - continue ceftriaxone per ID. May change to PO soon. - Follow repeat blood cultures. NGTD. Hepatitis C genotype 1A viral load positive/ LA class B esophagitis/ Portal hypertension/ Abdominal ascites/ Elevated transaminases CT abdomen/pelvis 09/09 revealed abdominal ascites, esophageal/gastric varices. Splenomegaly. Shrunken liver. Small splenic hematoma. EGD 09/12 revealed LA class B esophagitis, gastric erythema of the antrum gastric and duodenal bulb/ second portion, portal hypertension/gastropathy. - Patient is on pantoprazole 40 mg po daily/home medications pantoprazole. - Diet as tolerated. - Outpatient evaluation for positive hepatitis C genotype 1A for treatment. - Recheck liver function tests as clinically indicated. Stable. - Continue lactulose 3 times daily. - Added Ensure 3 times daily. - Continue diuretics. Depression Seems situational, s/t above. - will consult neuropsychology for further assistance. - low dose Ativan as needed. Tobaccoism Chronic. - Nasal cannula to maintain saturations greater than equal to 92%. - Incentive spirometry while awake. - Tobacco cessation self-education booklet will be provided. Acute kidney injury Avoid nephrotoxic medications. KAMILAH inhibitor has been held. Medullary nephrocalcinosis noted on CT abdomen. - continue Aldactone and Lasix as creatinine is returning to baseline. - Accurate I's and O - follow up with nephrology. Macrocytic anemia/ Thrombocytopenia/ Coagulopathic state secondary to underlying liver disease S/P Vitamin K. Received 4 pack platelets since admission along with 4 FFP, 2 liquid plasma, 2 cryoprecipitate. - follow CBC Chronic low back pain ARTEMIO 1:320 nucleolar positive with positive double-stranded DNA. Possibly also secondary to underlying liver disease/hepatitis. - Will need outpatient rheumatology workup - PT evaluate and treat. Hypokalemia Potassium level 3.5. - replete and monitor. Prophylax -GI -pantoprazole -DVT -SCD/holding pharmacological prophylaxis in light of acute subdural hematoma Discharge Planning Needs placement, ID clearance Problem Qualifiers (1) Liver cirrhosis: (2) Spleen hematoma: Qualified Codes: S36.029A - Unspecified contusion of spleen, initial encounter (3) Ascites: Qualified Codes: R18.8 - Other ascites (4) HTN (hypertension): Qualified Codes: I10 - Essential (primary) hypertension (5) Fall: Qualified Codes: W19.XXXA - Unspecified fall, initial encounter (6) Left shoulder pain: Qualified Codes: M25.512 - Pain in left shoulder (7) Diarrhea: Qualified Codes: R19.7 - Diarrhea, unspecified Malik Jones DO Oct 14, 2017 12:57
--- NOTE | 2017-10-14 13:02 | HHI.IDPN ---
Subjective Subjective Remarks Patient is a 62-year-old male, with known history of significant alcohol use, presented to the hospital after a fall. He was complaining of some left-sided chest pain, as well as pain on the left side of his trunk including shoulder and abdomen. He had a CT of the abdomen and pelvis which revealed portal gastropathy, ascites, liver cirrhosis, and a possible subcapsular splenic hematoma. Patient was seen by GI, and upper endoscopy was done which showed esophagitis, gastritis, portal hypertensive gastropathy, and some inflammation of the duodenum. On September 18, he was transferred to the ICU for acute onset of left-sided weakness. CT of the head showed subdural hematoma. He had placement of a bur hole, on 09/20, and this was removed on 09/25. His neurological status improved, and he still has some residual left-sided weakness. Patient was transitioned to the medical floor, and starting yesterday he developed a fever of 102. He still febrile today, and so infectious disease consultation has been requested to evaluate the patient. Patient denies any significant coughing or any chest pain or shortness of breath. He has not had any nausea or vomiting, no abdominal pain. He has had on and off diarrhea, but he is on lactulose. He has no Rooney catheter, and he denies any problem urinating. Patient has no central line, and only has peripheral IV. Patient was started on antibiotics and is on IV Zosyn, and has received a dose of IV vancomycin. His chest x-ray is normal. He had 2 blood cultures done today. Patient currently feels weak. He states he has done some ambulation. Patient has not had any fever since admission. He has not been on any antibiotics. Infectious disease consultation has been requested to evaluate the patient with no fevers. Notes reviewed Afebrile BC with E coli, 10/04, 10/05 No new (+) BC UC negative - sent after he had ABx Repeat UA still with pyuria but better CT A/P ok No abdominal pain or back pain No N/V No rash Renal US no hydronephrosis Creatinine down to normal Antibiotics Rocephin Current Medications Medications (Trade) Dose Ordered Sig/Tosin Route Start Time Stop Time Status Last Admin (NS Flush) 2 ml UNSCH PRN IV FLUSH 09/09/17 09:15 09/24/17 21:30 (NS Flush) 2 ml BID IV FLUSH 09/09/17 21:00 10/14/17 07:43 (Zofran Inj) 4 mg Q6H PRN IVP 09/09/17 09:15 09/28/17 21:48 (Narcan Inj) 0.4 mg UNSCH PRN IV PUSH 09/09/17 09:15 (Toña-Colace) 1 tab BID PO 09/09/17 21:00 10/14/17 07:43 (Milk Of Magnn[place] Liq) 30 ml Q12H PRN PO 09/09/17 09:15 10/01/17 02:38 (Senokot) 17.2 mg Q12H PRN PO 09/09/17 09:15 (Dulcolax Supp) 10 mg DAILY PRN RECTAL 09/09/17 09:15 (Romazicon Inj) 0.2 mg Q1M PRN IV PUSH 09/09/17 20:00 (Ativan) 1 mg Q4H PRN PO 09/09/17 20:00 (Ativan Inj) 1 mg Q4H PRN IV PUSH 09/09/17 20:00 (Ativan) 2 mg Q2H PRN PO 09/09/17 20:00 (Ativan Inj) 2 mg Q2H PRN IV PUSH 09/09/17 20:00 (Ativan Inj) 2 mg Q1H PRN IV PUSH 09/09/17 20:00 (Ativan Inj) 2 mg Q15M PRN IV PUSH 09/09/17 20:00 (Aldactone) 25 mg DAILY PO 09/09/17 20:00 10/14/17 07:43 (Catapres) 0.1 mg Q6H PRN PO 09/10/17 12:45 10/03/17 16:33 (Lasix) 40 mg DAILY PO 09/15/17 13:30 10/14/17 07:43 (Trandate Inj) 10 mg Q1HR PRN IV PUSH 09/18/17 14:15 09/21/17 03:30 Nicardipine HCl 25 mg/Sodium Chloride 250 ml @ 50 mls/hr TITRATE PRN IV 09/18/17 14:15 (Tears Naturale Opth Soln) 1 drop TID EACH EYE 09/18/17 18:00 10/10/17 09:42 (Zofran Odt) 4 mg Q6H PRN PO 09/18/17 14:45 (Albuterol Neb) 2.5 mg Q2HR NEB PRN INH 09/18/17 14:45 09/28/17 12:28 ([facility]) 1 Q361D XX 09/18/17 14:45 09/18/17 14:45 (Chlorhexidine 2% Cloth) Taper DAILY@04 TOP 09/19/17 04:00 09/15/18 03:59 09/23/17 04:00 (Chlorhexidine 2% Cloth) 3 pack UNSCH PRN TOP 09/18/17 14:45 (Norvasc) 10 mg DAILY PO 09/22/17 09:00 10/14/17 07:43 (Apresoline Inj) 10 mg Q1HR PRN IV PUSH 09/21/17 12:45 (Vasotec Inj) 1.25 mg Q8H PRN IV PUSH 09/21/17 12:45 10/03/17 16:33 Clevidipine 50 ml @ 2 mls/hr TITRATE PRN IV 09/21/17 13:00 (Protonix) 40 mg DAILY PO 09/22/17 09:00 10/14/17 07:43 (Apresoline) 25 mg Q8HR PO 09/21/17 15:45 10/14/17 06:34 (Vitamin B1) 100 mg DAILY PO 09/25/17 09:00 10/14/17 07:42 (Theragran) 1 tab DAILY PO 09/25/17 09:00 10/14/17 07:42 (Tylenol) 500 mg Q4H PRN PO 09/28/17 10:45 10/13/17 21:06 (Melatonin) 5 mg HS PRN PO 09/30/17 21:00 10/13/17 21:07 (Roxicodone) 5 mg Q6H PRN PO 10/01/17 11:15 10/14/17 12:12 (Lactulose Liq) 30 ml TID PO 10/01/17 13:00 10/14/17 07:45 (Motrin) 400 mg Q6H PRN PO 10/04/17 12:00 10/04/17 12:39 (Levaquin) 750 mg DAILY PO 10/14/17 12:00 11/01/17 11:59 10/14/17 12:11 Lines Line sites with no evidence of infection. Past Medical History Past Medical History Peptic ulcer disease Anxiety Hypertension Substance abuse Past Surgical History None Allergies: Coded Allergies: No Known Allergies (Verified Adverse Reaction, Unknown, 09/09/17) Objective . Vital Signs Date Time Temp Pulse Resp B/P (MAP) Pulse Ox O2 Delivery O2 Flow Rate FiO2 10/14/17 08:00 98.0 89 17 123/58 (79) 98 10/14/17 04:33 97.9 87 18 127/62 (83) 98 10/14/17 01:04 98.3 87 18 126/58 (80) 97 10/13/17 20:38 97.6 91 18 119/59 (79) 98 10/13/17 16:37 97.8 91 20 120/61 (80) 98 10/14/17 10/14/17 10/15/17 15:00 23:00 07:00 Output Total 325 ml Balance -325 ml Output Urine Total 325 ml # Bowel Movements 1 . Laboratory Tests Test 10/13/17 06:50 White Blood Count 4.9 TH/MM3 Red Blood Count 2.68 MIL/MM3 Hemoglobin 9.5 GM/DL Hematocrit 26.9 % Mean Corpuscular Volume 100.7 FL Mean Corpuscular Hemoglobin 35.4 PG Mean Corpuscular Hemoglobin Concent 35.2 % Red Cell Distribution Width 15.7 % Platelet Count 59 TH/MM3 Mean Platelet Volume 8.2 FL Laboratory Tests Test 10/13/17 06:50 Blood Urea Nitrogen 11 MG/DL Creatinine 0.99 MG/DL Random Glucose 92 MG/DL Calcium Level 8.2 MG/DL Magnesium Level 1.6 MG/DL Sodium Level 135 MEQ/L Potassium Level 4.0 MEQ/L Chloride Level 106 MEQ/L Carbon Dioxide Level 20.1 MEQ/L Anion Gap 9 MEQ/L Estimat Glomerular Filtration Rate 76 ML/MIN Microbiology Date/Time Source Procedure Growth Status 10/11/17 13:15 Urine Other Urine Culture - Final <10,000 CFU/ML YEAST Complete Imaging Last Impressions Liver Ultrasound 10/04/17 0000 Signed Impressions: CONCLUSION: 1. No specific abnormality is identified to explain the patient's fever. 2. However, there are persistent findings indicating cirrhosis with findings o f portal hypertension including splenomegaly, recanalized paraumbilical vein, a nd ascites. 3. There is hepatofugal flow in the main portal vein. Chest X-Ray 10/04/17 0000 Signed Impressions: CONCLUSION: No acute cardiopulmonary process. Head CT 09/23/17 0000 Signed Impressions: Service Date/Time: Saturday, September 23, 2017 09:47 - CONCLUSION: Interval placement of subdural drain Jairo Singh MD Abdomen/Pelvis CT 09/09/17 0833 Signed Impressions: Service Date/Time: Saturday, September 09, 2017 09:09 - CONCLUSION: Extensive ascites with cirrhosis or varicosities. Prominent spleen with possible tiny subcapsular hematoma series 2 image 30. Minimal induration anterior abdominal wall left side. Gilbert Lockett MD FACR Shoulder X-Ray 09/09/17 0000 Signed Impressions: Service Date/Time: Saturday, September 09, 2017 21:01 - CONCLUSION: 1. No acute bony abnormality. Vito Minor MD Lower Extremity Ultrasound 09/09/17 0000 Signed Impressions: Service Date/Time: Saturday, September 09, 2017 21:41 - CONCLUSION: Normal examination. Henok Young MD Elbow X-Ray 09/09/17 0000 Signed Impressions: Service Date/Time: Saturday, September 09, 2017 20:53 - CONCLUSION: 1. No acute bony abnormalities. Vito Minor MD Physical Exam GENERAL: awake and alert, NAD SKIN: Warm and dry. Has scattered petechial rash, and also with spider angiomatas. HEAD: Normocephalic. No temporal wasting, or tenderness. previous [place] hole sit dry with no drainage or redness EYES: [place] conjunctiva. No petechia or hemorrhage. Extraocular movements full and intact. Has scleral icterus. No injection or drainage. EARS, NOSE AND THROAT: Nose without bleeding or purulent nasal discharge. Mucous membranes pink and moist. No oral lesions noted. NECK: Trachea midline. Supple and not tender, no meningeal signs CARDIOVASCULAR: Regular rate and rhythm. No murmurs, rubs or gallops heard RESPIRATORY: Clear to auscultation. Breath sounds equal bilaterally. No rales , wheezing or rhonchi ABDOMEN: Soft, nondistended. Not tender. Bowel sounds present and normoactive. No guarding. No rebound. No organomegaly. Has varicosities in upper abdomen. EXTREMITIES: No clubbing, cyanosis, or edema. No joint effusion, has good ROM. No calf tenderness. NEUROLOGICAL: Awake and alert. Cranial nerves grossly intact. Has weakness L side about 4/5 PSYCHIATRIC: Normal affect, calm and cooperative. LINE: No evidence of infection Assessment & Plan Remarks E coli Sepsis, due to UTI - no other focus found UTI, no rooney ETOH liver cirrhosis with portal HTN Recent fall, has SDH, drained Acute renal failure: likely prerenal, sepsis related. - creatinine improving RECOMMENDATION Change Rocephin to Levaquin - end date ordered he is clinically doing well from ID standpoint I will be available prn Please call if with any new ID issue or question Raya Sequeira MD Oct 14, 2017 13:02
[2017-10-14 13:16] VITALS: BP 111/56; PULSE 91; RESP 18; TEMP 98.1; O2SAT 98
[2017-10-14 16:00] VITALS: BP 123/59; PULSE 92; RESP 18; TEMP 97.5; O2SAT 98
[2017-10-14] MEDS: MELATONIN 5 MG TAB PO PRN (20:16)
[2017-10-14 20:30] VITALS: BP 109/56; PULSE 88; RESP 18; TEMP 98; O2SAT 97
[2017-10-15] VITALS: BP 110/64; PULSE 80; RESP 18; TEMP 98.8; O2SAT 96
[2017-10-15] MEDS: CHLORHEXIDINE GLUCONATE 2 % 1 PACK (2 CLOTHS) TOP SCH (03:34)
[2017-10-15 05:15] VITALS: BP 115/62; PULSE 69; RESP 20; TEMP 98; O2SAT 95
[2017-10-15] MEDS: hydrALAZINE HCL 25 MG TAB PO SCH ×3 (05:32→21:54)
[2017-10-15 08:29] VITALS: BP 120/58; PULSE 87; RESP 20; TEMP 98.1; O2SAT 97
[2017-10-15] MEDS: SPIRONOLACTONE 25 MG TAB PO SCH (08:37)
[2017-10-15] MEDS: LEVOFLOXACIN 750 MG TAB PO SCH (08:37)
[2017-10-15] MEDS: ARTIFICIAL TEARS OPTH SOLN 15 ML BTL EACH EYE SCH ×3 (08:37→18:00)
[2017-10-15] MEDS: THIAMINE HCL 100 MG TAB PO SCH (08:38)
[2017-10-15] MEDS: PANTOPRAZOLE SOD 40 MG DELAYED RELEASE TAB PO SCH (08:38)
[2017-10-15] MEDS: FUROSEMIDE 40 MG TAB PO SCH (08:38)
[2017-10-15] MEDS: MULTIVITAMIN TAB PO SCH (08:38)
[2017-10-15] MEDS: LACTULOSE SYRUP 20 GM/30 ML CUP PO SCH ×3 (08:39→18:10)
[2017-10-15] MEDS: DOCUSATE SODIUM 50 MG/SENNA 8.6 MG TAB PO SCH ×2 (08:40→21:54)
[2017-10-15] MEDS: SODIUM CHLORIDE 0.9% FLUSH 10 ML FLUSH IV FLUSH SCH ×2 (08:40→21:54)
--- NOTE | 2017-10-15 11:36 | PD.HHIRBSE ---
Patient History Record/History Review Reason for Referral: The patient is a 62 year old right handed male with a history of chronic ETOH abuse who was admitted to [facility] on 09/09/2017 for a slip and fall injury. Head CT showed acute and chronic SDH and he is s/p burrhole. Presently, he is medically stable and awaits transfer to SNF in [place]. He has been noted to have increasing depressive symptoms secondary to his losses of activity and participation. He is referred for baseline neurobehavioral status examination to assess cognitive, behavioral and emotional aspects of the injury and to provide treatment recommendations. Past Surgical/Medical History Past Surgery: No Major surgery in last 100 days: Yes Hx Anesthesia Reactions: No Hx Orthopedic Surgery: No Hx Cardiac Surgery: No Hx Chest Surgery: No Hx Abdominal Surgery: No Hx Genitourinary Surgery: No Hx Endocrine Surgery: No Hx Eye Surgery: No Hx Ear Surgery: No Hx Oral Surgery: No Hx of Neuro Prob: Yes Hx Seizures: No Cephalgia (Headaches): Yes Hx Migraines: No Hx Head Injury: No Hx Falls: Yes Hx Cerebrovascular Accident: No Hx Dizziness: No Hx Numbness: No Hx of Musculoskeletal Pro: Yes Hx Arthritis: Yes (hands) Hx Osteoporosis: No Hx Neck Problems: No Hx Back Problem: Yes (severe back and hip pain, might be work related) Hx of Cardiovascular Prob: Yes Hypertension (High Blood Press: Yes Hx Clotting Problems: No Venous Thromboembolism Present: No Hx Chest Pain: No Hx Lightheadedness: Yes (SYNCOPAL EPISODE THIS ADMISSION) Hx Congestive Heart Failure: No Syncope (Fainting): No Hx of Respiratory Problem: No Hx Asthma: No Hx Wheezing: No Hx Chronic Obstructive Pulmona: No Hx Dyspnea: No Hx Snoring: No Hx Emphysema: No Hx Sleep Apnea: No Hx of GI Problems: No Hx Heartburn: No Hx Gastroesophageal Reflux: No Hx Hiatal Hernia: No Hx Ulcer: No Hx Liver Disease: No Hx Gallbladder Disease: No Hx Inflammatory Bowel Disease: No Hx of Problems: No Hx Renal Disease: No Hx Renal Failure: No Hx Kidney Transplant: No Hx Kidney Stones: No Hx Nephrectomy: No Hx Infection: No Hx Prostate Problems: No Hx Genital Problems: No Hx of Immuno Disor: No Hx of Endocrine Problems: No Hx Thyroid Disease: No Hx Diabetes: No Does Patient Currently Take Gl: No Diabetic Diagnosed 3 Months Or: No Hx of Eye Probl: Yes (WEARS GLASSES) Hx of Hearing or Ear Problems: No Hx Dental Problems: No Hx Psychiatric Problems: Yes Hx Anxiety: Yes Hx Depression: Yes Hx Blood Dyscrasias: No Hx Sickle Cell Disease: No Hx Thrombocytopenia: No Hx Hemophilia: No Hx of Heparin Induced Thr: No Hx of MDRO: No Hx of MRSA: No Hx of VRE: No Hx of CDIFF: No Hx of Tuberculosis: No Hx Chicken Pox: No If No, Have You Been Exposed W: No Hx Measles: No Hx of Body/Medical Devices: No Hx Pacemaker: No Hx Internal Defibrillator: No Central Line/Ports (Type): No Hx Joint Replacement: No Insulin Pump: No Hx Arteriovenous Shunt: No Hx Dental Implants: No Hx Eye Prosthesis: No Genitourinary Device: No Genitourinary Ostomy: No Gastrointestinal Ostomy: No Blood Transfusion History Will receive Blood /Blood prod: Yes Hx Blood Transfusions: No Hx Blood Transfusion Reaction: No Medication Active Medications Levofloxacin (Levaquin) 750 mg DAILY PO Last administered on 10/15/17at 08:37; Admin Dose 750 MG; Start 10/14/17 at 12:00; Stop 11/01/17 at 11:59 Mental Status Assessment Orientation: oriented to Self, oriented to Place, oriented to Time, oriented to Situation Mental Status: WFL: Thought processing, Language/Interactions, Attention, Learning/Memory, Problem-Solving Observation The patient is alert and oriented to person, place, time and circumstances surrounding the reason for hospitalization. In terms of attention skills, the patient was able to remain on task and remember basic and complex instructions. In terms of memory functioning, the patient was able to demonstrate adequate carryover of information after a brief period of time. The patient was able to initiate spontaneous conversation. Speech was characterized by adequate prosody , grammar, articulation, volume and rate. Basic naming skills were intact. Language repetition skills were intact. The patients comprehensions for basic one- and two-stage commands were intact. Basic verbal abstraction and problem- solving skills appeared intact. The patient appears to posses improving insight and awareness into their situation and within the limits of this brief evaluation, adequate basic judgment. Adjustment/Coping Assessment Adjustment/Coping: Moderate: Depression, Anxiety Observation The patients thought content was free from suicidal, homicidal or paranoid ideation, and the patients thought processes were logical and goal-directed. The patients mood was dysthymic, and the affect was worrisome. LTG Status: Deferred STG Status: Deferred Team Members: Neuropsychologist Behavior Assessment Agitation: None Treatment Engagement: Average Observation Behaviorally, the patient demonstrated no signs of agitation, impulsivity or disinhibition. There was no remarkable evidence of a formal thought disorder or psychosis. LTG - Status: Deferred STG Status: Deferred Team Members: Neuropsychologist Diagnosis/Discharge Plan Impression This 62 year old male with a history of chronic ETOH abuse, ESLD and brain injury, who is now complaining of depression due to losses of activity and participation. He is to transfer to an SNF in [place]. Clinically, he has mild neurocognitive dysfunction related to his multiple medical comorbidities, yet he still has decision making capacity. Emotionally, the patient meets criteria for major depressive disorder. Diagnosis: (1) Mild neurocognitive disorder (2) Alcohol dependence in controlled environment (3) Major depressive disorder, single episode, mild with anxious distress Maximizing acute care outcome Given his hepatic dysfunction, pharmacological management of his depression is limited to medications with the least side effect profile. One medication that may meet this criteria is Citalopram, which you may wish to consider, unless otherwise medically contraindicated. I will follow-up with this patient for supportive psychotherapeutic contact throughout the rest of his stay. Also, he does complain of insomnia, but he may only be a candidate for melatonin, which he currently is prescribed. The benefits of melatonin on sleep improve is better if taken several hours PRIOR to sleep, and as such the medication may be more effective if scheduled two to three hours PRIOR to sleep. At this point in the recovery process, the patient does have cognitive capacity as the patient is able to understand a situation and its likely consequences, and he is able to manipulate information rationally. Cognitive capacity will be assessed throughout the recovery process. Discharge Planning Anticipated Problems Ongoing areas of concern will include depression and anxiety, which is expected to improve with time and treatment. Treatment Plan This clinician will continue to follow with you throughout the course of this patients acute care treatment, and I will be available to meet with the patient s family/support system to facilitate their understanding and the ongoing care of their family member. The goals of neuropsychological intervention shall be both educational and supportive to the family/support system as is deemed clinically appropriate. Thank you Thank you for the opportunity to assist in this patients care. Manuel Suazo, Ph.D., ABPP Board Certified in Clinical Neuropsychology [place] [employer] [place] Licensed Psychologist #[id number] Manuel Suazo PhD Oct 15, 2017 11:36 am
[2017-10-15 12:04] VITALS: BP 120/58; PULSE 88; RESP 20; TEMP 97.7; O2SAT 98
--- NOTE | 2017-10-15 15:18 | HHI.PR ---
Subjective Remarks The patient said that he spoke with the psychologist earlier. He had no acute complaints. He said he wants to live in a motel in [place]. Discussed with nursing and case management. Objective Vitals Vital Signs Date Time Temp Pulse Resp B/P (MAP) Pulse Ox O2 Delivery O2 Flow Rate FiO2 10/15/17 12:04 97.7 88 20 120/58 (78) 98 10/15/17 08:29 98.1 87 20 120/58 (78) 97 10/15/17 05:15 98.0 69 20 115/62 (79) 95 10/15/17 00:00 98.8 80 18 110/64 (79) 96 10/14/17 20:30 98.0 88 18 109/56 (73) 97 10/14/17 16:00 97.5 92 18 123/59 (80) 98 I/O 10/14/17 10/14/17 10/14/17 10/15/17 10/15/17 10/15/17 07:00 15:00 23:00 07:00 15:00 23:00 Intake Total 900 ml 900 ml Output Total 300 ml 325 ml 400 ml 750 ml 315 ml Balance -300 ml -325 ml 500 ml 150 ml -315 ml Intake Oral 900 ml 900 ml Output Urine Total 300 ml 325 ml 400 ml 750 ml 315 ml # Voids 1 # Bowel Movements 1 0 1 Result Diagram: 10/13/17 0650 10/13/17 0650 Imaging Last Impressions Abdomen/Pelvis CT 10/10/17 0000 Signed Impressions: CONCLUSION: 1. Cirrhotic liver appearance with prominent stigmata of portal hypertension. 2. Nonspecific lymphadenopathy. 3. Mild ascites. 4. Gallstones. 5. Medullary nephrocalcinosis. 6. Small effusions and mild lung base atelectasis. Renal Ultrasound 10/08/17 0000 Signed Impressions: CONCLUSION: 1. There are no findings to indicate obstruction. Kidneys have a normal appear ance. 2. Small volume of ascites in this patient with cirrhosis. Abdomen Ultrasound 10/06/17 0000 Signed Impressions: CONCLUSION: 1. Small amount of ascites along the edge of the liver. 2. Nodularity of the hepatic contour suggesting cirrhosis. Liver Ultrasound 10/04/17 0000 Signed Impressions: CONCLUSION: 1. No specific abnormality is identified to explain the patient's fever. 2. However, there are persistent findings indicating cirrhosis with findings o f portal hypertension including splenomegaly, recanalized paraumbilical vein, a nd ascites. 3. There is hepatofugal flow in the main portal vein. Chest X-Ray 10/04/17 0000 Signed Impressions: CONCLUSION: No acute cardiopulmonary process. Head CT 09/23/17 Signed Impressions: Service Date/Time: Saturday, September 23, 2017 09:47 - CONCLUSION: Interval placement of subdural drain Jairo Singh MD Shoulder X-Ray 09/09/17 Signed Impressions: Service Date/Time: Saturday, September 09, 2017 21:01 - CONCLUSION: 1. No acute bony abnormality. Vito Minor MD Lower Extremity Ultrasound 09/09/17 Signed Impressions: Service Date/Time: Saturday, September 09, 2017 21:41 - CONCLUSION: Normal examination. Henok Young MD Elbow X-Ray 09/09/17 Signed Impressions: Service Date/Time: Saturday, September 09, 2017 20:53 - CONCLUSION: 1. No acute bony abnormalities. Vito Minor MD Objective Remarks GENERAL: This is a well-nourished, well-developed patient, in no apparent distress. CARDIOVASCULAR: RRR. RESPIRATORY: Fair air entry bilaterally. No W, R, or R GASTROINTESTINAL: Abdomen soft, non-tender, nondistended. Positive bowel sounds MUSCULOSKELETAL: Extremities without clubbing, cyanosis, or edema. Pedal pulses appreciated NEUROLOGICAL: Awake and alert. Moves all extremity. Normal speech.no focal neurological deficit PSYCH: Calm. Procedures None A/P Problem List: (1) Liver cirrhosis ICD Code: K74.60 - Unspecified cirrhosis of liver (2) Spleen hematoma ICD Code: S36.029A - Unspecified contusion of spleen, initial encounter Status: Acute (3) Hyperbilirubinemia ICD Code: E80.6 - Other disorders of bilirubin metabolism Status: Acute (4) Splenomegaly ICD Code: R16.1 - Splenomegaly, not elsewhere classified Status: Chronic (5) Ascites ICD Code: R18.8 - Other ascites Status: Chronic (6) Hypokalemia ICD Code: E87.6 - Hypokalemia Status: Resolved (7) Macrocytic anemia ICD Code: D53.9 - Nutritional anemia, unspecified Status: Chronic (8) HTN (hypertension) ICD Code: I10 - Essential (primary) hypertension Status: Chronic (9) Fall ICD Code: W19.XXXA - Unspecified fall, initial encounter Status: Acute (10) Left shoulder pain ICD Code: M25.512 - Pain in left shoulder (11) Edema of left lower extremity ICD Code: R60.0 - Localized edema (12) Hyperammonemia ICD Code: E72.20 - Disorder of urea cycle metabolism, unspecified (13) Coagulopathy ICD Code: D68.9 - Coagulation defect, unspecified Status: Acute (14) Diarrhea ICD Code: R19.7 - Diarrhea, unspecified Assessment and Plan Acute/subacute/chronic right subdural hematoma -3.5 cm thickness with compression of the sulci/gyri with the right to left subfalcine shift 4.7 mm/ Acute encephalopathy CT brain 09/18 revealed acute, subacute and chronic components to right subdural hematoma. 3.5 cm. Compression of the sulci and gyri. Right frontal right-to- left subfalcine shift approximately [address] brain 09/23 - interval placement of a right frontal subdural drain. There has been replacement of some of the frontal subdural fluid with air. Otherwise little change in the configuration with persistent grossly stable subfalcine shift in lateral ventricular compression with effacement of hemispheric cortical sulci. Status post right bur hole by Dr. Carranza. Drain have since been removed. Patient was placed on levetiracetam 500 mg IV twice daily 7 days. EEG with mild to moderate encephalopathic changes; No epileptic activity. - Blood pressure control keep systolic blood pressure less than 140. - Multivitamin, thiamine and folate daily 3 days has been completed. - Seizure precautions. - Pain medications as needed. - daughter is trying to arrange SNF placement in [place], but it may take a while to get approved. Case management assistance appreciated. E. coli bacteremia ID consult appreciated. Repeat CT abdomen unremarkable. - continue ceftriaxone per ID. May change to PO upon discharge. - Follow repeat blood cultures. NGTD. Hepatitis C genotype 1A viral load positive/ LA class B esophagitis/ Portal hypertension/ Abdominal ascites/ Elevated transaminases CT abdomen/pelvis 09/09 revealed abdominal ascites, esophageal/gastric varices. Splenomegaly. Shrunken liver. Small splenic hematoma. EGD 09/12 revealed LA class B esophagitis, gastric erythema of the antrum gastric and duodenal bulb/ second portion, portal hypertension/gastropathy. - Patient is on pantoprazole 40 mg po daily/home medications pantoprazole. - Diet as tolerated. - Outpatient evaluation for positive hepatitis C genotype 1A for treatment. - Recheck liver function tests as clinically indicated. Stable. - Continue lactulose 3 times daily. - Added Ensure 3 times daily. - Continue diuretics. Depression/ Insomnia Seems situational, s/t above. Neuropsychology consult appreciated. - low dose Ativan as needed. - consider Celexa per neuropsych. - trazodone added for insomnia. D/c melatonin. Tobaccoism Chronic. - Nasal cannula to maintain saturations greater than equal to 92%. - Incentive spirometry while awake. - Tobacco cessation self-education booklet will be provided. Acute kidney injury Avoid nephrotoxic medications. KAMILAH inhibitor has been held. Medullary nephrocalcinosis noted on CT abdomen. - continue Aldactone and Lasix as creatinine is returning to baseline. - Accurate I's and O - follow up with nephrology. Macrocytic anemia/ Thrombocytopenia/ Coagulopathic state secondary to underlying liver disease S/P Vitamin K. Received 4 pack platelets since admission along with 4 FFP, 2 liquid plasma, 2 cryoprecipitate. - follow CBC Chronic low back pain ARTEMIO 1:320 nucleolar positive with positive double-stranded DNA. Possibly also secondary to underlying liver disease/hepatitis. - Will need outpatient rheumatology workup - PT evaluate and treat. Hypokalemia Potassium level 3.5. - replete and monitor. Prophylax -GI -pantoprazole -DVT -SCD/holding pharmacological prophylaxis in light of acute subdural hematoma Discharge Planning Needs placement, ID clearance Problem Qualifiers (1) Liver cirrhosis: (2) Spleen hematoma: Qualified Codes: S36.029A - Unspecified contusion of spleen, initial encounter (3) Ascites: Qualified Codes: R18.8 - Other ascites (4) HTN (hypertension): Qualified Codes: I10 - Essential (primary) hypertension (5) Fall: Qualified Codes: W19.XXXA - Unspecified fall, initial encounter (6) Left shoulder pain: Qualified Codes: M25.512 - Pain in left shoulder (7) Diarrhea: Qualified Codes: R19.7 - Diarrhea, unspecified Malik Jones DO Oct 15, 2017 15:18
[2017-10-15 15:50] VITALS: BP 141/67; PULSE 91; RESP 20; TEMP 97.5; O2SAT 98
[2017-10-15 21:20] VITALS: BP 124/58; PULSE 88; RESP 18; TEMP 98; O2SAT 97
[2017-10-15] MEDS: traZODone HCL 50 MG TAB PO PRN (21:54)
[2017-10-16] VITALS (7 sets, daily range): BP systolic 107–130; BP diastolic 55–65; PULSE 80–90; RESP 16–20; TEMP 97.5–98; O2SAT 95–100
[2017-10-16] MEDS: CHLORHEXIDINE GLUCONATE 2 % 1 PACK (2 CLOTHS) TOP SCH (03:03)
[2017-10-16] MEDS: hydrALAZINE HCL 25 MG TAB PO SCH ×3 (05:46→22:34)
[2017-10-16] MEDS: THIAMINE HCL 100 MG TAB PO SCH (08:29)
[2017-10-16] MEDS: ARTIFICIAL TEARS OPTH SOLN 15 ML BTL EACH EYE SCH ×3 (08:29→18:00)
[2017-10-16] MEDS: DOCUSATE SODIUM 50 MG/SENNA 8.6 MG TAB PO SCH ×2 (08:30→22:34)
[2017-10-16] MEDS: LACTULOSE SYRUP 20 GM/30 ML CUP PO SCH ×3 (08:30→18:00)
[2017-10-16] MEDS: LEVOFLOXACIN 750 MG TAB PO SCH (08:31)
[2017-10-16] MEDS: PANTOPRAZOLE SOD 40 MG DELAYED RELEASE TAB PO SCH (08:31)
[2017-10-16] MEDS: FUROSEMIDE 40 MG TAB PO SCH (08:31)
[2017-10-16] MEDS: SPIRONOLACTONE 25 MG TAB PO SCH (08:31)
[2017-10-16] MEDS: MULTIVITAMIN TAB PO SCH (08:31)
[2017-10-16] MEDS: SODIUM CHLORIDE 0.9% FLUSH 10 ML FLUSH IV FLUSH SCH ×2 (08:32→22:34)
[2017-10-16 08:47] LABS: HEMATOCRIT 25.7 % (39.0-51.0); MEAN CORPUSCULAR HEMOGLOBIN 34.8 PG (27.0-34.0); MEAN CORPUSCULAR HGB CONC 34.8 % (32.0-36.0); MEAN PLATELET VOLUME 9.2 FL (7.0-11.0); PLATELET COUNT 53 TH/MM3 (150-450); RED BLOOD COUNT 2.57 MIL/MM3 (4.50-5.90); RED CELL DISTRIBUTION WIDTH 16.1 % (11.6-17.2); WHITE BLOOD COUNT 4.9 TH/MM3 (4.0-11.0)
--- NOTE | 2017-10-16 08:52 | HHI.PR ---
Neuropsych Emotional Emotional: Moderate: Anxious/Fearful, Depressed/Sad Behavior Behavior: Intact: Coping/Acceptance, Cooperative w/ Treatment, Motivation, Frustration Tolerance/[place], Impulsive/Agitated Cognitive Cognitive: Mild: Cognitive, Attention/Concentration, Confused/Orientation, Insight/Awareness, Judgement/Problem-Solving, Memory Psychosocial Psychosocial: Moderate: Psychosocial, Family/Other Adjustment, Realistic Expectation, Unable to Asses: Self-Esteem/Confidence Progress Notes/Response to Tx Contents of Sessions: Adjustment Time with Patient: 30 minutes Premorbid psychological status Premorbid Cognitive, Emotional and Behavioral Status: Tenuous. The patient has high school years of education and a solid work history prior to this injury , but has been on disability for several years. The patient has no prior psychiatric difficulties, as described above, except ETOH dependence and depression. Substance abuse history includes ETOH, which has contributed to his medical state. Behavioral Reactions of Patient and Family/Support System: Tenuous. The patients family is experiencing ongoing issues of adjustment given the nature of the injury, and this aspect of recovery will require ongoing monitoring. Emotional/Behavioral Status of Patient and Family/Support System: Tenuous. Pertinent issues, if appropriate to this patients clinical care, are described in detail above. Maximizing acute care outcome Given his hepatic dysfunction, pharmacological management of his depression is limited to medications with the least side effect profile. One medication that may meet this criteria is Citalopram, which you may wish to consider, unless otherwise medically contraindicated. I will follow-up with this patient for supportive psychotherapeutic contact throughout the rest of his stay. Also, he does complain of insomnia, but he may only be a candidate for melatonin, which he currently is prescribed. The benefits of melatonin on sleep improve is better if taken several hours PRIOR to sleep, and as such the medication may be more effective if scheduled two to three hours PRIOR to sleep. At this point in the recovery process, the patient does have cognitive capacity as the patient is able to understand a situation and its likely consequences, and he is able to manipulate information rationally. Cognitive capacity will be assessed throughout the recovery process. Anticipated Problems Ongoing areas of concern will include depression and anxiety, which is expected to improve with time and treatment. Treatment Plan This clinician will continue to follow with you throughout the course of this patients acute care treatment, and I will be available to meet with the patient s family/support system to facilitate their understanding and the ongoing care of their family member. The goals of neuropsychological intervention shall be both educational and supportive to the family/support system as is deemed clinically appropriate. Impression This 62 year old male with a history of chronic ETOH abuse, ESLD and brain injury, who is now complaining of depression due to losses of activity and participation. He is to transfer to an SNF in [place]. Clinically, he has mild neurocognitive dysfunction related to his multiple medical comorbidities, yet he still has decision making capacity. Emotionally, the patient meets criteria for major depressive disorder. Diagnosis: (1) Mild neurocognitive disorder (2) Alcohol dependence in controlled environment (3) Major depressive disorder, single episode, mild with anxious distress Progress Note Narrative Day 37 of his hospitalization. Patient started on Trazodone 50 HS, has Ativan PRN and Celexa is a consideration if depression does not improve from bedside psychological counseling. I will keep you updated in these notes concerning improvements on this front. He reported much improved sleep last night. He remains depressed, but no SI/HI, but in spite of his self-report, he seems in better spirits. I provided psychological support and encouragement. I will follow. Manuel Suazo PhD Oct 16, 2017 8:52 am
[2017-10-16 09:19] LABS: BICARBONATE 20.4 MEQ/L (21.0-32.0); CALCIUM 8.3 MG/DL (8.5-10.1); CREATININE 1.2 MG/DL (0.60-1.30); MAGNESIUM 1.6 MG/DL (1.5-2.5)
--- NOTE | 2017-10-16 12:46 | HHI.PR ---
Subjective Remarks 10-15 The patient said that he spoke with the psychologist earlier. He had no acute complaints. He said he wants to live in a [place] in [place]. Discussed with nursing and case management. 10-16 NO NEW COMPLAINTS STATES HE SHOWERED TODAY DW RN AND PT AND CM [facility] YESTERDAY Objective Vitals Vital Signs Date Time Temp Pulse Resp B/P (MAP) Pulse Ox O2 Delivery O2 Flow Rate FiO2 10/16/17 11:56 97.6 85 19 116/58 (77) 100 10/16/17 08:42 116/56 (76) 10/16/17 08:12 97.9 84 19 107/55 (72) 95 10/16/17 05:40 98.0 88 19 130/65 (86) 97 10/16/17 00:30 98.0 80 18 120/60 (80) 96 10/15/17 21:20 98.0 88 18 124/58 (80) 97 10/15/17 15:50 97.5 91 20 141/67 (91) 98 I/O 10/15/17 10/15/17 10/15/17 10/16/17 10/16/17 10/16/17 07:00 15:00 23:00 07:00 15:00 23:00 Intake Total 900 ml 1050 ml Output Total 750 ml 315 ml 900 ml 225 ml Balance 150 ml -315 ml 150 ml -225 ml Intake Oral 900 ml 1050 ml Output Urine Total 750 ml 315 ml 900 ml 225 ml # Voids 1 # Bowel Movements 1 3 Result Diagram: 10/16/17 0807 10/16/17 0802 Other Results Laboratory Tests Test 10/15/17 19:44 10/16/17 08:02 10/16/17 08:07 Random Glucose 137 MG/DL 87 MG/DL Blood Urea Nitrogen 15 MG/DL Creatinine 1.20 MG/DL Calcium Level 8.3 MG/DL Magnesium Level 1.6 MG/DL Sodium Level 135 MEQ/L Potassium Level 4.2 MEQ/L Chloride Level 105 MEQ/L Carbon Dioxide Level 20.4 MEQ/L Anion Gap 10 MEQ/L Estimat Glomerular Filtration Rate 61 ML/MIN White Blood Count 4.9 TH/MM3 Red Blood Count 2.57 MIL/MM3 Hemoglobin 9.0 GM/DL Hematocrit 25.7 % Mean Corpuscular Volume 100.0 FL Mean Corpuscular Hemoglobin 34.8 PG Mean Corpuscular Hemoglobin Concent 34.8 % Red Cell Distribution Width 16.1 % Platelet Count 53 TH/MM3 Mean Platelet Volume 9.2 FL Imaging Last Impressions Abdomen/Pelvis CT 10/10/17 Signed Impressions: CONCLUSION: 1. Cirrhotic liver appearance with prominent stigmata of portal hypertension. 2. Nonspecific lymphadenopathy. 3. Mild ascites. 4. Gallstones. 5. Medullary nephrocalcinosis. 6. Small effusions and mild lung base atelectasis. Renal Ultrasound 10/08/17 Signed Impressions: CONCLUSION: 1. There are no findings to indicate obstruction. Kidneys have a normal appear ance. 2. Small volume of ascites in this patient with cirrhosis. Abdomen Ultrasound 10/06/17 Signed Impressions: CONCLUSION: 1. Small amount of ascites along the edge of the liver. 2. Nodularity of the hepatic contour suggesting cirrhosis. Liver Ultrasound 10/04/17 Signed Impressions: CONCLUSION: 1. No specific abnormality is identified to explain the patient's fever. 2. However, there are persistent findings indicating cirrhosis with findings o f portal hypertension including splenomegaly, recanalized paraumbilical vein, a nd ascites. 3. There is hepatofugal flow in the main portal vein. Chest X-Ray 10/04/17 Signed Impressions: CONCLUSION: No acute cardiopulmonary process. Head CT 09/23/17 Signed Impressions: Service Date/Time: Saturday, September 23, 2017 09:47 - CONCLUSION: Interval placement of subdural drain Jairo Singh MD Shoulder X-Ray 09/09/17 Signed Impressions: Service Date/Time: Saturday, September 09, 2017 21:01 - CONCLUSION: 1. No acute bony abnormality. Vito Minor MD Lower Extremity Ultrasound 09/09/17 Signed Impressions: Service Date/Time: Saturday, September 09, 2017 21:41 - CONCLUSION: Normal examination. Henok Young MD Elbow X-Ray 09/09/17 Signed Impressions: Service Date/Time: Saturday, September 09, 2017 20:53 - CONCLUSION: 1. No acute bony abnormalities. Vito Minor MD Objective Remarks GENERAL: Awake and alert and oriented 3 talkative and cooperative SKIN: Warm and dry. Multiple tattoos HEAD: Atraumatic. Normocephalic. EYES: Pupils equal and round. No scleral icterus. No injection or drainage. ENT: No nasal bleeding or discharge. Mucous membranes pink and moist. NECK: Trachea midline. No JVD. CARDIOVASCULAR: Regular rate and rhythm. S1-S2 no S3 or S4 RESPIRATORY: No accessory muscle use. Clear to auscultation. Breath sounds equal bilaterally. GASTROINTESTINAL: Abdomen soft, non-tender, nondistended. Hepatic and splenic margins not palpable. MUSCULOSKELETAL: Extremities without clubbing, cyanosis, or edema. No obvious deformities. NEUROLOGICAL: Awake and alert. No obvious cranial nerve deficits. Motor grossly within normal limits. Five out of 5 muscle strength in the arms and legs on the right. Normal speech. Left upper extremity weakness has improved PSYCHIATRIC: Appropriate mood and affect; insight and judgment normal. Procedures EGD PROCEDURE REPORT EXAM DATE: 09/12/2017 PATIENT NAME: Malik Valentine MR #: [id number] BIRTHDATE: 1955 ATTENDING: Med Dominguez MD ORDER #: [id number] [employer]ES WORKER: Julienne Castro RN STATUS: inpatient INDICATIONS: The patient is a 62 yr old male here for an EGD due to Cirrhosis PROCEDURE PERFORMED: EGD, diagnostic MEDICATIONS: None and Per Anesthesia. TOPICAL ANESTHETIC: CONSENT: The patient understands the risks and benefits of the procedure and understands that these risks include, but are not limited to: sedation, allergic reaction, infection, perforation and/or bleeding. Alternative means of evaluation and treatment include, among others: physical exam, x-rays, and/or surgical intervention. The patient elects to proceed with this endoscopic procedure. medical equipment was checked for proper function. Hand hygiene and appropriate measures for infection prevention was taken. After the risks, benefits and alternatives of the procedure were thoroughly explained, Informed consent was verified, confirmed and timeout was successfully executed by the treatment team. The patient was anesthetized with topical anesthesia and the Pentax [id number] endoscope was introduced through the mouth and advanced to the second portion of the duodenum. Retroflexed views revealed no abnormalities The gastroscope was then slowly withdrawn and removed. ESOPHAGUS: There was LA Class B esophagitis noted. STOMACH: There was erythematous moderate gastritis in the gastric antrum. Severe portal hypertensive gastropathy was found in the gastric body and gastric fundus. DUODENUM: Moderate duodenal inflammation was found in the bulb and second portion of the duodenum. ADVERSE EVENTS: There were no complications. IMPRESSIONS: 1. There was LA Class B esophagitis noted 2. There was erythematous gastritis in the gastric antrum 3. Portal hypertensive gastropathy was found in the gastric body and gastric fundus 4. Duodenal inflammation was found in the bulb and second portion of the duodenum 5. Retroflexed views revealed no abnormalities RECOMMENDATIONS: 1. Anti-reflux regimen 2. Continue PPI 3. Avoid NSAIDS PATIENT CONDITION: stable DISPOSITION: Inpatient REPEAT EXAM: Return 6 months EGD [facility] ON 09-20 FOR SDH EVACUATION Medications and IVs Current Medications Sodium Chloride (NS Flush) 2 ml UNSCH PRN IV FLUSH FLUSH AFTER USING IV ACCESS ; Start 09/09/17 at 07:15; Stop 09/09/17 at 09:34; Status DC Lidocaine HCl (Lidoderm 5% Patch.12 Hr) 1 patch ONCE ONCE T-DERMAL ; Start 09/09 at 08:45; Stop 09/09/17 at 08:46; Status DC Sodium Chloride (NS Flush) 2 ml UNSCH PRN IV FLUSH FLUSH AFTER USING IV ACCESS Last administered on 09/24/17at 21:30; Start 09/09/17 at 09:15 Sodium Chloride (NS Flush) 2 ml BID IV FLUSH Last administered on 10/16/17at 08: 32; Start 09/09/17 at 21:00 Acetaminophen (Tylenol) 650 mg Q4H PRN PO TEMP > 100.4; Start 09/09/17 at 09:15 ; Stop 09/09/17 at 19:57; Status DC Ondansetron HCl (Zofran Inj) 4 mg Q6H PRN IVP NAUSEA OR VOMITING Last administered on 09/28/17at 21:48; Start 09/09/17 at 09:15 Naloxone HCl (Narcan Inj) 0.4 mg UNSCH PRN IV PUSH SEE LABEL COMMENTS; Start at 09:15 Senna/Docusate Sodium (Toña-Colace) 1 tab BID PO Last administered on at 21:54; Start 09/09/17 at 21:00 Magnesium Hydroxide (Milk Of Magnesia Liq) 30 ml Q12H PRN PO Mild constipation Last administered on 10/01/17at 02:38; Start 09/09/17 at 09:15 Sennosides (Senokot) 17.2 mg Q12H PRN PO Moderate constipation; Start 09/09/17 at 09:15 Bisacodyl (Dulcolax Supp) 10 mg DAILY PRN RECTAL SEVERE CONSITIPATION; Start at 09:15 Lactulose (Lactulose Liq) 30 ml DAILY PRN PO SEVERE CONSITIPATION; Start at 09:15; Stop 09/09/17 at 19:58; Status DC Potassium Chloride (KCl) 60 meq ONCE ONCE PO Last administered on 09/09/17at 11: 42; Start 09/09/17 at 10:00; Stop 09/09/17 at 10:01; Status DC Iohexol (Omnipaque 350 Inj) 86 ml STK-MED ONCE IVCONTRAST Last administered on 09/09/17at 09:16; Start 09/09/17 at 09:16; Stop 09/09/17 at 09:17; Status DC Flumazenil (Romazicon Inj) 0.2 mg Q1M PRN IV PUSH SEE LABEL COMMENTS; Start 09/09/17 at 20:00 Lorazepam (Ativan) 1 mg Q4H PRN PO CIWA 8 - 10; Start 09/09/17 at 20:00 Lorazepam (Ativan Inj) 1 mg Q4H PRN IV PUSH CIWA 8 - 10; Start 09/09/17 at 20:00 Lorazepam (Ativan) 2 mg Q2H PRN PO CIWA 11-14; Start 09/09/17 at 20:00 Lorazepam (Ativan Inj) 2 mg Q2H PRN IV PUSH CIWA 11-14; Start 09/09/17 at 20:00 Lorazepam (Ativan Inj) 2 mg Q1H PRN IV PUSH CIWA 15-20; Start 09/09/17 at 20:00 Lorazepam (Ativan Inj) 2 mg Q15M PRN IV PUSH CIWA > 20; Start 09/09/17 at 20:00 Lactulose (Lactulose Liq) 30 ml QID PO Last administered on 09/19/17 20:19; Start 09/09/17 at 21:00; Stop 09/20/17 at 08:51; Status DC Spironolactone (Aldactone) 25 mg DAILY PO Last administered on 10/16/17at 08:31 ; Start 09/09/17 at 20:00 Clonidine (Catapres) 0.1 mg Q6H PRN PO SYS BP GREATER THAN 160 MMHG; Start 09/09 at 20:00; Status Cancel Pantoprazole Sodium (Protonix) 40 mg DAILY PO Last administered on 09/18/17at 09 :26; Start 09/10/17 at 09:00; Stop 09/18/17 at 14:28; Status DC Acetaminophen/ Hydrocodone Bitart (Milton 5-325 Mg) 1 tab Q6H PRN PO PAIN > 5 Last administered on 09/18/17at 12:31; Start 09/09/17 at 23:15; Stop 09/18/17 at 14:28; Status DC Phytonadione 10 mg/Sodium Chloride 51 ml @ 102 mls/hr ONCE ONCE IV Last administered on 09/10/17 11:00; Start 09/10/17 at 11:00; Stop 09/10/17 at 11:29; Status DC Phytonadione (Mephyton Liq) 5 mg DAILY PO Last administered on 09/18/17 09:25 ; Start 09/11/17 at 09:00; Stop 09/18/17 at 14:28; Status DC Clonidine (Catapres) 0.1 mg Q6H PRN PO SYS BP GREATER THAN 160 MMHG Last administered on 10/03/17at 16:33; Start 09/10/17 at 12:45 Propranolol HCl (Inderal) 20 mg Q8HR PO Last administered on 09/14/17at 14:13; Start 09/10/17 at 14:00; Stop 09/14/17 at 15:50; Status DC Potassium Chloride (KCl) 40 meq ONCE ONCE PO Last administered on 09/10/17 16: 23; Start 09/10/17 at 14:15; Stop 09/10/17 at 14:39; Status DC Lisinopril (Prinivil) 20 mg DAILY PO Last administered on 09/17/17at 10:00; Start 09/10/17 at 14:30; Stop 09/18/17 at 14:09; Status DC Lactated Ringer's 1,000 ml @ 30 mls/hr Q24H PRN IV SEE LABEL COMMENTS Last administered on 09/12/17at 09:54; Start 09/11/17 at 23:00; Stop 09/14/17 at 22:59 ; Status DC Sodium Chloride 500 ml @ 30 mls/hr [id number] PRN IV SEE LABEL COMMENTS Last administered on 09/12/17at 00:20; Start 09/11/17 at 23:00; Stop 09/14/17 at 22:59 ; Status DC Metoprolol Tartrate (Lopressor) 25 mg [employer]ER PRN PO SEE LABEL COMMENTS; Start 09/11/17 at 23:00; Stop 09/14/17 at 22:59; Status DC Povidone Iodine (Betadine 5% Antisepsis Kit) 1 applic [employer] PRN EACH NARE SEE LABEL COMMENTS; Start 09/11/17 at 23:00; Stop 09/14/17 at 22:59; Status DC Chlorhexidine Gluconate (Chlorhexidine 2% Cloth) 3 pack [employer] PRN TOPICAL SEE LABEL COMMENTS; Start 09/11/17 at 23:00; Stop 09/14/17 at 22:59; Status DC Insulin Human Regular (NovoLIN R INJ) See Protocol Table ... [employer] WORKER PRN SQ SEE PROTOCOL TABLE; Start 09/11/17 at 23:00; Stop 09/14/17 at 22:59; Status DC Lidocaine HCl (Xylocaine-Mpf 1% Inj) 5 ml STK-MED ONCE OTHER ; Start 09/12/17 at 12:00; Stop 09/13/17 at 12:43; Status DC Propofol (Diprivan 200 Mg/20 ml Inj) 200 mg STK-MED ONCE IV ; Start 09/12/17 at 12:00; Stop 09/13/17 at 12:43; Status DC Propranolol HCl (Inderal) 40 mg Q8HR PO Last administered on 09/17/17at 20:57; Start 09/14/17 at 22:00; Stop 09/18/17 at 14:09; Status DC Furosemide (Lasix) 40 mg DAILY PO Last administered on 10/16/17at 08:31; Start 09/15/17 at 13:30 Amlodipine Besylate (Norvasc) 5 mg DAILY PO Last administered on 09/21/17at 08: 27; Start 09/15/17 at 13:30; Stop 09/21/17 at 12:37; Status DC Phytonadione (Vitamin K Inj) 10 mg ONCE ONCE SQ ; Start 09/18/17 at 13:30; Stop 09/18/17 at 14:45; Status DC Phytonadione (Vitamin K Inj) 10 mg DAILY SQ ; Start 09/19/17 at 09:00; Stop at 09:00; Status DC Sodium Chloride 250 ml @ 15 mls/hr ONCE ONCE IV Last administered on at 22:49; Start 09/18/17 at 13:45; Stop 09/19/17 at 06:24; Status DC Acetaminophen (Tylenol) 650 mg Q4H PRN PO SEE LABEL COMMENTS Last administered on 09/26/17at 11:51; Start 09/18/17 at 13:45; Stop 09/28/17 at 10:35; Status DC Diphenhydramine HCl (Benadryl) 25 mg Q4H PRN PO SEE LABEL COMMENTS Last administered on 10/03/17at 11:08; Start 09/18/17 at 13:45; Stop 10/03/17 at 11:08 ; Status DC Furosemide (Lasix Inj) 20 mg ONCE ONCE IV PUSH Last administered on 09/18/17at 22:49; Start 09/18/17 at 13:45; Stop 09/18/17 at 13:51; Status DC Phytonadione 10 mg/Sodium Chloride 51 ml @ 102 mls/hr DAILY IV Last administered on 09/20/17at 09:19; Start 09/19/17 at 09:00; Stop 09/21/17 at 08:59 ; Status DC Labetalol HCl (Trandate Inj) 10 mg Q1HR PRN IV PUSH SBP>140, DBP>90, HR>65 Last administered on 09/21/17at 03:30; Start 09/18/17 at 14:15 Nicardipine HCl 25 mg/Sodium Chloride 250 ml @ 50 mls/hr TITRATE PRN IV Blood pressure management; Start 09/18/17 at 14:15 Sodium Chloride 188 meq/Sodium Chloride 1,047 ml @ 30 mls/hr Q24H IV Last administered on 09/22/17at 20:00; Start 09/18/17 at 15:00; Stop 09/23/17 at 09:12 ; Status DC Levetriacetam 500 mg/Sodium Chloride 105 ml @ 420 mls/hr Q12HR IV Last administered on 09/25/17at 08:35; Start 09/18/17 at 21:00; Stop 09/25/17 at 20:59 ; Status DC Multivitamins 10 ml/Thiamine HCl 100 mg/Folic Acid 1 mg/Sodium Chloride 511.2 ml @ 125 mls/hr ONCE ONCE IV Last administered on 09/18/17at 17:58; Start at 16:00; Stop 09/18/17 at 20:05; Status DC Multivitamins 10 ml/Thiamine HCl 100 mg/Folic Acid 1 mg/Sodium Chloride 511.2 ml @ 125 mls/hr DAILY IV Last administered on 09/20/17at 14:25; Start 09/19/17 at 09:00; Stop 09/21/17 at 08:59; Status DC Pantoprazole Sodium (Protonix Inj) 40 mg DAILY IV PUSH Last administered on at 08:27; Start 09/18/17 at 14:30; Stop 09/21/17 at 15:04; Status DC Acetaminophen 100 ml @ 400 mls/hr Q8HR PRN IV fever; Start 09/18/17 at 14:30; Stop 10/01/17 at 14:15; Status DC Morphine Sulfate (Morphine Inj) 2 mg Q4H PRN IV PUSH Pain 1 through 7 Last administered on 09/27/17at 09:48; Start 09/18/17 at 14:30; Stop 09/28/17 at 10:32 ; Status DC Morphine Sulfate (Morphine Inj) 4 mg Q4HR PRN IV PUSH Pain 8-10 Last administered on 09/25/17at 02:59; Start 09/18/17 at 14:30; Stop 09/28/17 at 10:32 ; Status DC Sodium Chloride (NS Flush) 2 ml UNSCH PRN IV FLUSH FLUSH AFTER USING IV ACCESS ; Start 09/18/17 at 14:45; Stop 09/18/17 at 14:45; Status DC Sodium Chloride (NS Flush) 2 ml BID IV FLUSH ; Start 09/18/17 at 21:00; Stop at 21:00; Status DC Artificial Tears (Tears Naturale Opth Soln) 1 drop TID EACH EYE Last administered on 10/10/17at 09:42; Start 09/18/17 at 18:00 Ondansetron HCl (Zofran Odt) 4 mg Q6H PRN PO NAUSEA OR VOMITING; Start at 14:45 Albuterol/ Ipratropium (Duoneb Neb) 1 ampule Q6HR NEB INH Last administered on 09/21/17at 08:05; Start 09/18/17 at 16:00; Stop 09/22/17 at 15:59; Status DC Albuterol Sulfate (Albuterol Neb) 2.5 mg Q2HR NEB PRN INH SOB/WHEEZING Last administered on 09/28/17at 12:28; Start 09/18/17 at 14:45 Miscellaneous Information ([facility] Nursing Information) 1 [id number] Last administered on 09/18/17at 14:45; Start 09/18/17 at 14:45 Chlorhexidine Gluconate (Chlorhexidine 2% Cloth) Taper DAILY@04 TOP Last administered on 09/23/17at 04:00; Start 09/19/17 at 04:00; Stop 09/15/18 at 03:59 Chlorhexidine Gluconate (Chlorhexidine 2% Cloth) 3 pack UNSCH PRN TOP HYGIENIC CARE; Start 09/18/17 at 14:45 Phytonadione 10 mg/Sodium Chloride 51 ml @ 102 mls/hr ONCE ONCE IV Last administered on 09/18/17at 16:00; Start 09/18/17 at 16:00; Stop 09/18/17 at 16:29 ; Status DC Magnesium Sulfate/ Dextrose 100 ml @ 100 mls/hr ONCE ONCE IV Last administered on 09/18/17at 16:12; Start 09/18/17 at 16:00; Stop 09/18/17 at 16:59 ; Status DC Sodium Chloride 250 ml @ 15 mls/hr ONCE ONCE IV Last administered on at 16:20; Start 09/19/17 at 13:30; Stop 09/20/17 at 06:09; Status DC Sodium Chloride 250 ml @ 15 mls/hr ONCE ONCE IV Last administered on at 09:20; Start 09/20/17 at 07:15; Stop 09/20/17 at 23:54; Status DC Lactulose (Lactulose Liq) 30 ml DAILY PO Last administered on 10/01/17at 08:58; Start 09/20/17 at 09:00; Stop 10/01/17 at 11:16; Status DC Midazolam HCl (Versed Inj) 5 mg ONCE ONCE IV Last administered on 09/20/17at 13 :20; Start 09/20/17 at 10:00; Stop 09/20/17 at 10:01; Status DC Morphine Sulfate (Morphine Inj) 8 mg ONCE ONCE IV PUSH Last administered on at 13:20; Start 09/20/17 at 10:00; Stop 09/20/17 at 10:01; Status DC Potassium Chloride 100 ml @ 50 mls/hr Q2H PRN IV For Potassium 2.8 - 3.2 mEq/L ; Start 09/20/17 at 14:30; Stop 09/29/17 at 07:38; Status DC Potassium Chloride 100 ml @ 50 mls/hr Q2H PRN IV For Potassium 2.8 - 3.2 mEq/L ; Start 09/20/17 at 14:30; Stop 09/29/17 at 07:38; Status DC Potassium Bicarb/ Potassium Chloride (K-Lyte Cl Eff) 50 meq UNSCH PRN PO For Potassium 3.3 - 3.5 mEq/L; Start 09/20/17 at 14:30; Stop 09/29/17 at 07:38; Status DC Potassium Chloride 100 ml @ 25 mls/hr UNSCH PRN IV For Potassium 3.3 - 3.5 mEq /L; Start 09/20/17 at 14:30; Stop 09/29/17 at 07:39; Status DC Potassium Chloride 100 ml @ 50 mls/hr Q2H PRN IV For Potassium 3.3 - 3.5 mEq/ L Last administered on 09/21/17at 12:21; Start 09/20/17 at 14:30; Stop 09/29/17 at 07:39; Status DC Magnesium Sulfate 4 gm/Sodium Chloride 100 ml @ 50 mls/hr UNSCH PRN IV For Magnesium 0.9 - 1.1 mg/dL; Start 09/20/17 at 14:30; Stop 09/29/17 at 07:38; Status DC Magnesium Oxide (Mag-Ox) 800 mg UNSCH PRN PO For Magnesium 1.2 - 1.6 mg/dL; Start 09/20/17 at 14:30; Stop 09/29/17 at 07:39; Status DC Magnesium Sulfate 2 gm/Sodium Chloride 100 ml @ 50 mls/hr UNSCH PRN IV For Magnesium 1.2 - 1.6 mg/dL; Start 09/20/17 at 14:30; Stop 09/29/17 at 07:39; Status DC Potassium Phosphate (K-Phos) 2,000 mg Q4H PRN PO For Phosphorus < 2.5 mg/dL; Start 09/20/17 at 14:30; Stop 09/29/17 at 07:39; Status DC Sodium Phosphate 30 mmol/Sodium Chloride 250 ml @ 42 mls/hr UNSCH PRN IV For Phosphorus < 2.5 mg/dL Last administered on 09/22/17at 19:59; Start 09/20/17 at 14:30; Stop 09/29/17 at 07:39; Status DC Potassium Phosphate (K-Phos) 2,000 mg UNSCH PRN PO/TUBE SEE LABEL COMMENTS; Start 09/20/17 at 14:30; Stop 09/29/17 at 07:39; Status DC Potassium Phosphate 30 mmol/ Sodium Chloride 260 ml @ 42 mls/hr UNSCH PRN IV SEE LABEL COMMENTS; Start 09/20/17 at 14:30; Stop 09/29/17 at 07:39; Status DC Amlodipine Besylate (Norvasc) 10 mg DAILY PO Last administered on 10/16/17at 08: 30; Start 09/22/17 at 09:00 Hydralazine HCl (Apresoline Inj) 10 mg Q1HR PRN IV PUSH SBP>140, DBP>90; Start 09/21/17 at 12:45 Enalaprilat (Vasotec Inj) 1.25 mg Q8H PRN IV PUSH SBP>140, DBP>90 Last administered on 10/03/17at 16:33; Start 09/21/17 at 12:45 Clevidipine 50 ml @ 2 mls/hr TITRATE PRN IV Blood Pressure Management; Start at 13:00 Phytonadione (Mephyton) 5 mg ONCE ONCE PO ; Start 09/21/17 at 16:00; Stop 09/21 at 16:00; Status DC Pantoprazole Sodium (Protonix) 40 mg DAILY PO Last administered on 10/16/17at 08 :31; Start 09/22/17 at 09:00 Phytonadione (Mephyton Liq) 5 mg ONCE PO Last administered on 09/21/17at 21:00; Start 09/21/17 at 16:00; Stop 09/21/17 at 17:00; Status DC Hydralazine HCl (Apresoline) 25 mg Q8HR PO Last administered on 10/16/17at 05:46 ; Start 09/21/17 at 15:45 Potassium Chloride (KCl) 30 meq ONCE ONCE PO Last administered on 09/22/17at 16 :47; Start 09/22/17 at 16:30; Stop 09/22/17 at 16:35; Status DC Magnesium Sulfate/ Dextrose 100 ml @ 100 mls/hr ONCE ONCE IV ; Start 09/22/17 at 16:30; Stop 09/22/17 at 17:29; Status Cancel Magnesium Sulfate/ Dextrose 100 ml @ 100 mls/hr Q1H IV Last administered on at 20:31; Start 09/22/17 at 16:30; Stop 09/22/17 at 19:29; Status DC Thiamine HCl (Vitamin B1) 100 mg DAILY PO Last administered on 10/16/17at 08:29 ; Start 09/25/17 at 09:00 Multivitamins (Theragran) 1 tab DAILY PO Last administered on 10/16/17at 08:31; Start 09/25/17 at 09:00 Phytonadione (Mephyton) 2.5 mg ONCE ONCE PO ; Start 09/24/17 at 12:45; Stop at 13:23; Status DC Phytonadione (Mephyton Liq) 2.5 mg ONCE ONCE PO ; Start 09/24/17 at 14:30; Stop 09/24/17 at 14:30; Status DC Phytonadione (Mephyton Liq) 2.5 mg ONCE ONCE PO Last administered on at 14:35; Start 09/24/17 at 14:30; Stop 09/24/17 at 14:31; Status DC Zolpidem Tartrate (Ambien) 5 mg ONCE ONCE PO Last administered on 09/26/17at 22 :34; Start 09/26/17 at 22:30; Stop 09/26/17 at 22:31; Status DC Acetaminophen (Tylenol) 500 mg Q4H PRN PO PAIN 1-4 ON SCALE;FEVER Last administered on 10/13/17at 21:06; Start 09/28/17 at 10:45 Melatonin (Melatonin) 5 mg ONCE ONCE PO Last administered on 09/29/17at 23:17; Start 09/29/17 at 22:00; Stop 09/29/17 at 22:01; Status DC Melatonin (Melatonin) 5 mg HS PRN PO INSOMNIA Last administered on 10/14/17at 20 :16; Start 09/30/17 at 21:00; Stop 10/15/17 at 13:38; Status DC Oxycodone HCl (Roxicodone) 5 mg Q6H PRN PO PAIN GREATER THAN 5 Last administered on 10/15/17at 21:54; Start 10/01/17 at 11:15 Lactulose (Lactulose Liq) 30 ml TID PO Last administered on 10/15/17at 18:10; Start 10/01/17 at 13:00 Ibuprofen (Motrin) 400 mg Q6H PRN PO fever>100.4 Last administered on 10/04/17at 12:39; Start 10/04/17 at 12:00 Vancomycin HCl 1100 mg/Sodium Chloride 261 ml @ 250 mls/hr ONCE ONCE IV ; Start 10/04/17 at 13:00; Stop 10/04/17 at 13:15; Status DC Piperacillin Sod/ Tazobactam Sod 100 ml @ 200 mls/hr Q6H IV ; Start 10/04/17 at 14:00; Status Cancel Vancomycin HCl 1000 mg/Sodium Chloride 250 ml @ 250 mls/hr ONCE ONCE IV Last administered on 10/04/17at 14:18; Start 10/04/17 at 14:00; Stop 10/04/17 at 14:59; Status DC Metronidazole (Flagyl) 500 mg Q8H PO Last administered on 10/07/17at 05:51; Start 10/04/17 at 15:00; Stop 10/07/17 at 13:42; Status DC Sodium Chloride 1,000 ml @ 84 mls/hr [id number] IV Last administered on 10/04/17at 16:46; Start 10/04/17 at 15:15; Stop 10/05/17 at 03:09; Status DC Piperacillin Sod/ Tazobactam Sod 100 ml @ 200 mls/hr Q6H IV Last administered on 10/07/17at 10:00; Start 10/04/17 at 17:00; Stop 10/07/17 at 13:42; Status DC Ceftriaxone Sodium 2000 mg/ Sodium Chloride 100 ml @ 200 mls/hr Q24H IV Last administered on 10/13/17at 12:49; Start 10/07/17 at 14:00; Stop 10/14/17 at 11:46 ; Status DC Potassium Chloride (KCl) 20 meq ONCE ONCE PO Last administered on 10/09/17at 17: 21; Start 10/09/17 at 15:30; Stop 10/09/17 at 15:31; Status DC Diatrizoate Meglum/ Diatrizoate Sod ( Gastroview Liq) 18 ml ONCE ONCE PO Last administered on 10/10/17at 12:47; Start 10/10/17 at 12:30; Stop 10/10/17 at 12: 31; Status DC Potassium Chloride (KCl) 40 meq ONCE ONCE PO Last administered on 10/12/17at 17: 08; Start 10/12/17 at 15:15; Stop 10/12/17 at 15:16; Status DC Magnesium Sulfate/ Dextrose 100 ml @ 100 mls/hr Q1H IV Last administered on 02/20at 16:42; Start 10/13/17 at 15:15; Stop 10/13/17 at 17:14; Status DC Levofloxacin (Levaquin) 750 mg DAILY PO Last administered on 10/16/17at 08:31; Start 10/14/17 at 12:00; Stop 11/01/17 at 11:59 Trazodone HCl (Desyrel) 50 mg HS PRN PO insomnia Last administered on at 21:54; Start 10/15/17 at 21:00 A/P Problem List: (1) Liver cirrhosis ICD Code: K74.60 - Unspecified cirrhosis of liver (2) Spleen hematoma ICD Code: S36.029A - Unspecified contusion of spleen, initial encounter Status: Acute (3) Hyperbilirubinemia ICD Code: E80.6 - Other disorders of bilirubin metabolism Status: Acute (4) Splenomegaly ICD Code: R16.1 - Splenomegaly, not elsewhere classified Status: Chronic (5) Ascites ICD Code: R18.8 - Other ascites Status: Chronic (6) Hypokalemia ICD Code: E87.6 - Hypokalemia Status: Resolved (7) Macrocytic anemia ICD Code: D53.9 - Nutritional anemia, unspecified Status: Chronic (8) HTN (hypertension) ICD Code: I10 - Essential (primary) hypertension Status: Chronic (9) Fall ICD Code: W19.XXXA - Unspecified fall, initial encounter Status: Acute (10) Left shoulder pain ICD Code: M25.512 - Pain in left shoulder (11) Edema of left lower extremity ICD Code: R60.0 - Localized edema (12) Hyperammonemia ICD Code: E72.20 - Disorder of urea cycle metabolism, unspecified (13) Coagulopathy ICD Code: D68.9 - Coagulation defect, unspecified Status: Acute (14) Diarrhea ICD Code: R19.7 - Diarrhea, unspecified Assessment and Plan Acute/subacute/chronic right subdural hematoma -3.5 cm thickness with compression of the sulci/gyri with the right to left subfalcine shift 4.7 mm/ Acute encephalopathy CT brain 09/18 revealed acute, subacute and chronic components to right subdural hematoma. 3.5 cm. Compression of the sulci and gyri. Right frontal right-to- left subfalcine shift approximately [address] brain 09/23 - interval placement of a right frontal subdural drain. There has been replacement of some of the frontal subdural fluid with air. Otherwise little change in the configuration with persistent grossly stable subfalcine shift in lateral ventricular compression with effacement of hemispheric cortical sulci. Status post right bur hole by Dr. Carranza. Drain have since been removed. Patient was placed on levetiracetam 500 mg IV twice daily 7 days. EEG with mild to moderate encephalopathic changes; No epileptic activity. - Blood pressure control keep systolic blood pressure less than 140. - Multivitamin, thiamine and folate daily 3 days has been completed. - Seizure precautions. - Pain medications as needed. - daughter is trying to arrange SNF placement in [place], but it may take a while to get approved. Case management assistance appreciated. E. coli bacteremia ID consult appreciated. Repeat CT abdomen unremarkable. - continue ceftriaxone per ID. May change to PO upon discharge. - Follow repeat blood cultures. NGTD. Hepatitis C genotype 1A viral load positive/ LA class B esophagitis/ Portal hypertension/ Abdominal ascites/ Elevated transaminases CT abdomen/pelvis 09/09 revealed abdominal ascites, esophageal/gastric varices. Splenomegaly. Shrunken liver. Small splenic hematoma. EGD 09/12 revealed LA class B esophagitis, gastric erythema of the antrum gastric and duodenal bulb/ second portion, portal hypertension/gastropathy. - Patient is on pantoprazole 40 mg po daily/home medications pantoprazole. - Diet as tolerated. - Outpatient evaluation for positive hepatitis C genotype 1A for treatment. - Recheck liver function tests as clinically indicated. Stable. - Continue lactulose 3 times daily. - Added Ensure 3 times daily. - Continue diuretics. Depression/ Insomnia Seems situational, s/t above. Neuropsychology consult appreciated. - low dose Ativan as needed. - consider Celexa per neuropsych. - trazodone added for insomnia. D/c melatonin. Tobaccoism Chronic. - Nasal cannula to maintain saturations greater than equal to 92%. - Incentive spirometry while awake. - Tobacco cessation self-education booklet will be provided. Acute kidney injury Avoid nephrotoxic medications. KAMILAH inhibitor has been held. Medullary nephrocalcinosis noted on CT abdomen. - continue Aldactone and Lasix as creatinine is returning to baseline. - Accurate I's and O - follow up with nephrology. Macrocytic anemia/ Thrombocytopenia/ Coagulopathic state secondary to underlying liver disease S/P Vitamin K. Received 4 pack platelets since admission along with 4 FFP, 2 liquid plasma, 2 cryoprecipitate. - follow CBC Chronic low back pain ARTEMIO 1:320 nucleolar positive with positive double-stranded DNA. Possibly also secondary to underlying liver disease/hepatitis. - Will need outpatient rheumatology workup - PT evaluate and treat. Hypokalemia Potassium level 3.5. - replete and monitor. Prophylax -GI -pantoprazole -DVT -SCD/holding pharmacological prophylaxis in light of acute subdural hematoma Discharge Planning PENDING SAFE DISCHARGE Problem Qualifiers (1) Liver cirrhosis: (2) Spleen hematoma: Qualified Codes: S36.029A - Unspecified contusion of spleen, initial encounter (3) Ascites: Qualified Codes: R18.8 - Other ascites (4) HTN (hypertension): Qualified Codes: I10 - Essential (primary) hypertension (5) Fall: Qualified Codes: W19.XXXA - Unspecified fall, initial encounter (6) Left shoulder pain: Qualified Codes: M25.512 - Pain in left shoulder (7) Diarrhea: Qualified Codes: R19.7 - Diarrhea, unspecified Gilbert Hayes DO Oct 16, 2017 12:46
--- NOTE | 2017-10-16 14:05 | RADRPT ---
EXAM DATE: 10/16/2017 1:55 PM EDT AGE/SEX: 62 years / Male INDICATIONS: SUBDURAL THREE WEEKS AGO CLINICAL DATA: This is the patient's subsequent encounter. Patient reports that signs and symptoms h ave been present for 3 weeks and indicates a pain score of 0/10. MEDICAL/SURGICAL HISTORY: Hypertension. Cardiovascular disease. None. RADIATION DOSE: 56.36 CTDI (mGy) [place] [facility] [place] [facility] [place]18/[place]. . TECHNIQUE: CT of the head without contrast. Using automated exposure control and adjustment of the mA and/or kV according to patient size, radiation dose was kept as low as reasonably achievable to ob tain optimal diagnostic quality images. FINDINGS: There is a persistent right frontoparietal subdural collection which is decreased in overal l size compared to 09/23/2017 but still prominent in width in the frontal region measuring 2.1 cm in g reatest width. The majority of the collection is composed of subacute blood although there are small areas of hyperdense blood products suggesting some acute hemorrhage. There is 3 mm of subfalcine darion iation to the left which is slightly improved compared to the previous examination. There is a tiny s table acute left frontal subdural measuring 2 mm in greatest width. CONCLUSION: 1. Persistent right frontoparietal subdural collection which is decreased in overall size compared t o 09/23/2017 but still prominent in width in the frontal region measuring 2.1 cm in greatest width. Th e majority of the collection is composed of subacute blood although there are small areas of hyperden se blood products suggesting some acute hemorrhage. There is 3 mm of subfalcine herniation to the lef t which is slightly improved compared to the previous examination. 2. Stable tiny acute left frontal subdural measuring 2 mm in greatest width. Electronically signed by: Manuel Dennis MD 10/16/2017 2:04 PM EDT
[2017-10-16] MEDS: traZODone HCL 50 MG TAB PO PRN (22:34)
[2017-10-17] VITALS: BP 112/55; PULSE 82; RESP 16; TEMP 98; O2SAT 97
[2017-10-17 04:00] VITALS: BP 106/56; PULSE 84; RESP 17; TEMP 97.8; O2SAT 97
[2017-10-17] MEDS: CHLORHEXIDINE GLUCONATE 2 % 1 PACK (2 CLOTHS) TOP SCH (04:00)
[2017-10-17] MEDS: hydrALAZINE HCL 25 MG TAB PO SCH ×3 (06:12→22:00)
[2017-10-17 07:08] LABS: ALBUMIN 1.9 GM/DL (3.4-5.0); AST (GOT) 49 U/L (15-37); BICARBONATE 20.2 MEQ/L (21.0-32.0); BLOOD UREA NITROGEN 17 MG/DL (7-18); CALCIUM 8.3 MG/DL (8.5-10.1); CHLORIDE 103 MEQ/L (98-107); CREATININE 1.27 MG/DL (0.60-1.30); GLOMERULAR FILTRATION RATE 57 ML/MIN (>89); GLUCOSE,RANDOM 88 MG/DL (74-106); MAGNESIUM 1.6 MG/DL (1.5-2.5); SODIUM (NA) 135 MEQ/L (136-145)
[2017-10-17 07:09] LABS: ALT (GPT) 22 U/L (12-78); PHOSPHORUS 3.5 MG/DL (2.5-4.9)
[2017-10-17 07:18] LABS: ALKALINE PHOSPHATASE 86 U/L (45-117); FREE T4 1.08 NG/DL (0.76-1.46); TOTAL BILIRUBIN ADULT 3.8 MG/DL (0.2-1.0)
[2017-10-17 07:19] LABS: AUTOMATED NEUTROPHIL # 3.2 TH/MM3 (1.8-7.7); BASOPHIL % 0.8 % (0.0-2.0); EOSINOPHIL # 0.1 TH/MM3 (0-0.4); EOSINOPHIL % 1.2 % (0.0-4.0); HEMATOCRIT 25.6 % (39.0-51.0); HEMOGLOBIN 8.8 GM/DL (13.0-17.0); LYMPH % 15.9 % (9.0-44.0); LYMPHOCYTE # 0.7 TH/MM3 (1.0-4.8); MEAN CELL VOLUME 100.2 FL (80.0-100.0); MEAN CORPUSCULAR HEMOGLOBIN 34.6 PG (27.0-34.0); MEAN CORPUSCULAR HGB CONC 34.5 % (32.0-36.0); MEAN PLATELET VOLUME 8.7 FL (7.0-11.0); MONO % 12.9 % (0.0-8.0); MONOCYTE # 0.6 TH/MM3 (0-0.9); NEUT % 69.2 % (16.0-70.0); PLATELET COUNT 57 TH/MM3 (150-450); RED BLOOD COUNT 2.55 MIL/MM3 (4.50-5.90); RED CELL DISTRIBUTION WIDTH 15.5 % (11.6-17.2); WHITE BLOOD COUNT 4.7 TH/MM3 (4.0-11.0)
[2017-10-17 08:00] VITALS: BP 110/51; PULSE 87; RESP 16; TEMP 99.3; O2SAT 96
--- NOTE | 2017-10-17 08:28 | HHI.PR ---
Neuropsych Emotional Emotional: Mild: Anxious/Fearful, Depressed/Sad Behavior Behavior: Intact: Coping/Acceptance, Cooperative w/ Treatment, Motivation, Frustration Tolerance/[place] Cognitive Cognitive: Mild: Cognitive, Attention/Concentration, Confused/Orientation, Insight/Awareness, Judgement/Problem-Solving, Memory Psychosocial Psychosocial: Severe: Psychosocial, Family/Other Adjustment, Realistic Expectation, Unable to Asses: Self-Esteem/Confidence Progress Notes/Response to Tx Contents of Sessions: Adjustment, Level of Consciousness Time with Patient: 30 minutes Premorbid psychological status Premorbid Cognitive, Emotional and Behavioral Status: Tenuous. The patient has high school years of education and a solid work history prior to this injury , but has been on disability for several years. The patient has no prior psychiatric difficulties, as described above, except ETOH dependence and depression. Substance abuse history includes ETOH, which has contributed to his medical state. Behavioral Reactions of Patient and Family/Support System: Tenuous. The patients family is experiencing ongoing issues of adjustment given the nature of the injury, and this aspect of recovery will require ongoing monitoring. Emotional/Behavioral Status of Patient and Family/Support System: Tenuous. Pertinent issues, if appropriate to this patients clinical care, are described in detail above. Maximizing acute care outcome Given his hepatic dysfunction, pharmacological management of his depression is limited to medications with the least side effect profile. One medication that may meet this criteria is Citalopram, which you may wish to consider, unless otherwise medically contraindicated. I will follow-up with this patient for supportive psychotherapeutic contact throughout the rest of his stay. Also, he does complain of insomnia, but he may only be a candidate for melatonin, which he currently is prescribed. The benefits of melatonin on sleep improve is better if taken several hours PRIOR to sleep, and as such the medication may be more effective if scheduled two to three hours PRIOR to sleep. At this point in the recovery process, the patient does have cognitive capacity as the patient is able to understand a situation and its likely consequences, and he is able to manipulate information rationally. Cognitive capacity will be assessed throughout the recovery process. Anticipated Problems Ongoing areas of concern will include depression and anxiety, which is expected to improve with time and treatment. Treatment Plan This clinician will continue to follow with you throughout the course of this patients acute care treatment, and I will be available to meet with the patient s family/support system to facilitate their understanding and the ongoing care of their family member. The goals of neuropsychological intervention shall be both educational and supportive to the family/support system as is deemed clinically appropriate. Impression This 62 year old male with a history of chronic ETOH abuse, ESLD and brain injury, who is now complaining of depression due to losses of activity and participation. He is to transfer to an SNF in [place]. Clinically, he has mild neurocognitive dysfunction related to his multiple medical comorbidities, yet he still has decision making capacity. Emotionally, the patient meets criteria for major depressive disorder. Diagnosis: (1) Mild neurocognitive disorder (2) Alcohol dependence in controlled environment (3) Major depressive disorder, single episode, mild with anxious distress Progress Note Narrative Day 38 of his hospitalization. The patient is eager to review his situation, and anticipates discharge. He was encouraged to ambulate in order to increase his strength, and to normalize sleep wake cycles, both of which he agreed to do. His mood is improved, and his affect is stable. He reports better sleep at night with the Trazodone. No SI/HI. I provided psychological support and encouragement. I will follow. Manuel Suazo PhD Oct 17, 2017 8:28 am
[2017-10-17] MEDS: LACTULOSE SYRUP 20 GM/30 ML CUP PO SCH ×3 (09:00→16:21)
[2017-10-17] MEDS: ARTIFICIAL TEARS OPTH SOLN 15 ML BTL EACH EYE SCH ×3 (09:00→16:20)
[2017-10-17] MEDS: DOCUSATE SODIUM 50 MG/SENNA 8.6 MG TAB PO SCH ×2 (09:00→21:00)
[2017-10-17] MEDS: SPIRONOLACTONE 25 MG TAB PO SCH (09:10)
[2017-10-17] MEDS: LEVOFLOXACIN 750 MG TAB PO SCH (09:10)
[2017-10-17] MEDS: THIAMINE HCL 100 MG TAB PO SCH (09:10)
[2017-10-17] MEDS: FUROSEMIDE 40 MG TAB PO SCH (09:10)
[2017-10-17] MEDS: PANTOPRAZOLE SOD 40 MG DELAYED RELEASE TAB PO SCH (09:10)
[2017-10-17] MEDS: SODIUM CHLORIDE 0.9% FLUSH 10 ML FLUSH IV FLUSH SCH ×2 (09:10→21:14)
[2017-10-17] MEDS: MULTIVITAMIN TAB PO SCH (09:10)
[2017-10-17] MEDS: ENALAPRILAT 1.25 MG/ML VIAL IV PUSH PRN (09:11)
[2017-10-17] MEDS: cloNIDine HCL 0.1 MG TAB PO PRN (09:11)
--- NOTE | 2017-10-17 10:05 | HHI.NSPN ---
History Chief Complaint: Left hemiparesis, right SDH. Interval History This is a 62-year-old male admitted on 09/09 with history of falls and right flank/abdominal pain. Imaging at that time included CT abdomen/pelvis revealed portal gastropathy/varices, abdominal ascites, small splenic hematoma and induration to the left side of the abdominal wall. Patient was seen by GI for possible bleeding. EGD and's 09/12 revealed LA class B esophagitis, gastric erythema of the antrum. Duodenal bulb and second part of the duodenum. Portal hypertension with gastropathy. He was noted to have a left-sided weakness and a CT scan of the head obtained today reveals a large subacute and chronic right frontoparietal subdural hemorrhage measuring about 3 cm in thickness at about 6 mm right to left midline shift. He has a chronic coagulopathy with elevated PT/ INR due to his cirrhosis and liver failure along with thrombocytopenia. He also has anemia, hypokalemia, acute kidney injury, low albumin and elevated ARTEMIO. He is lethargic but easily arousable and oriented and follows simple command and protecting his airway well. 09/19/17: Pt awake, alert, flat affect. Denies headache. Complains of thirst. Left hemiparesis. Getting EEG this morning. 09/20/17: Pt awake and alert. Denies headache. Left hemiparesis with some improvement. No n/v. Pt states he would like to proceed with procedure. 09/23/17: Pt awake and alert. Complains of headache all over. Left hemiparesis with some improvement from admission. Speech is clear. Follows commands well. 09/24/17: Pt awakens to voice. Complains of mild headache and mild nausea. Follows commands well. 09/25/17: Pt awake and alert. Complains of mild headache all over. No n/v. Left hemiparesis. Subdural drain came out this morning. Exit site is clean Steri strip being applied by RN. 09/26/17: Pt awakens to voice. Incisional discomfort. No n/v. Left hemiparesis. No drainage from subdural exit site. 09/27/17: Pt awakens to voice. States has headache and dizziness. Had nausea last night. 10/17/17: Pt awake and alert. Complains of intermittent headaches. No n/v. Left hemiparesis is improving. Pt states he is working to go to [place] with his daughters. Review of Systems General: Negative for: fever, chills, insomnia Respiratory: Negative for: shortness of breath, cough, sputum Cardiovascular: Negative for: chest pain Gastrointestinal: Negative for: nausea, vomitting, diarrhea, constipation Exam Results Vital Signs Date Time Temp Pulse Resp B/P (MAP) Pulse Ox O2 Delivery O2 Flow Rate FiO2 10/17/17 08:00 99.3 87 16 110/51 (70) 96 Intake and Output 10/17/17 10/17/17 10/18/17 08:00 16:00 00:00 Output Total 1350 ml Balance -1350 ml Physical Examination General: Pt awake and alert in NAD. Eyes: Pupils equal. Sclera with icterus. Resp: CTA bilaterally Heart: NSR no murmurs Abd: Soft positive bs Skin: Surgical incision well healed without signs of infection or complication. Muscle: Moves all 4 extremities with left hemiparesis LUE more than LLE. LUE 4 +/5. LLE 4+/5. Neuro: Pt awake and alert. Pupils 3mm bilaterally reactive bilaterally. Follows commands well. Speech clear and appropriate. Lab, Micro, Other Results Last Impressions Head CT 10/16/17 0000 Signed Impressions: CONCLUSION: 1. Persistent right frontoparietal subdural collection which is decreased in o verall size compared to 09/23/2017 but still prominent in width in the frontal r egion measuring 2.1 cm in greatest width. The majority of the collection is com posed of subacute blood although there are small areas of hyperdense blood prod ucts suggesting some acute hemorrhage. There is 3 mm of subfalcine herniation t o the left which is slightly improved compared to the previous examination. 2. Stable tiny acute left frontal subdural measuring 2 mm in greatest width. Abdomen/Pelvis CT 10/10/17 0000 Signed Impressions: CONCLUSION: 1. Cirrhotic liver appearance with prominent stigmata of portal hypertension. 2. Nonspecific lymphadenopathy. 3. Mild ascites. 4. Gallstones. 5. Medullary nephrocalcinosis. 6. Small effusions and mild lung base atelectasis. Renal Ultrasound 10/08/17 Signed Impressions: CONCLUSION: 1. There are no findings to indicate obstruction. Kidneys have a normal appear ance. 2. Small volume of ascites in this patient with cirrhosis. Abdomen Ultrasound 10/06/17 Signed Impressions: CONCLUSION: 1. Small amount of ascites along the edge of the liver. 2. Nodularity of the hepatic contour suggesting cirrhosis. Liver Ultrasound 10/04/17 Signed Impressions: CONCLUSION: 1. No specific abnormality is identified to explain the patient's fever. 2. However, there are persistent findings indicating cirrhosis with findings o f portal hypertension including splenomegaly, recanalized paraumbilical vein, a nd ascites. 3. There is hepatofugal flow in the main portal vein. Chest X-Ray 10/04/17 Signed Impressions: CONCLUSION: No acute cardiopulmonary process. Shoulder X-Ray 09/09/17 Signed Impressions: Service Date/Time: Saturday, September 09, 2017 21:01 - CONCLUSION: 1. No acute bony abnormality. Vito Minor MD Lower Extremity Ultrasound 09/09/17 Signed Impressions: Service Date/Time: Saturday, September 09, 2017 21:41 - CONCLUSION: Normal examination. Henok Young MD Elbow X-Ray 09/09/17 Signed Impressions: Service Date/Time: Saturday, September 09, 2017 20:53 - CONCLUSION: 1. No acute bony abnormalities. Vito Minor MD Laboratory Tests Test 10/17/17 05:20 White Blood Count 4.7 TH/MM3 Red Blood Count 2.55 MIL/MM3 Hemoglobin 8.8 GM/DL Hematocrit 25.6 % Mean Corpuscular Volume 100.2 FL Mean Corpuscular Hemoglobin 34.6 PG Mean Corpuscular Hemoglobin Concent 34.5 % Red Cell Distribution Width 15.5 % Platelet Count 57 TH/MM3 Mean Platelet Volume 8.7 FL Neutrophils (%) (Auto) 69.2 % Lymphocytes (%) (Auto) 15.9 % Monocytes (%) (Auto) 12.9 % Eosinophils (%) (Auto) 1.2 % Basophils (%) (Auto) 0.8 % Neutrophils # (Auto) 3.2 TH/MM3 Lymphocytes # (Auto) 0.7 TH/MM3 Monocytes # (Auto) 0.6 TH/MM3 Eosinophils # (Auto) 0.1 TH/MM3 Basophils # (Auto) 0.0 TH/MM3 CBC Comment AUTO DIFF Differential Comment AUTO DIFF CONFIRMED Platelet Estimate LOW Platelet Morphology Comment NORMAL Blood Urea Nitrogen 17 MG/DL Creatinine 1.27 MG/DL Random Glucose 88 MG/DL Total Protein 7.0 GM/DL Albumin 1.9 GM/DL Calcium Level 8.3 MG/DL Phosphorus Level 3.5 MG/DL Magnesium Level 1.6 MG/DL Alkaline Phosphatase 86 U/L Aspartate Amino Transf (AST/SGOT) 49 U/L Alanine Aminotransferase (ALT/SGPT) 22 U/L Total Bilirubin 3.8 MG/DL Sodium Level 135 MEQ/L Potassium Level 4.1 MEQ/L Chloride Level 103 MEQ/L Carbon Dioxide Level 20.2 MEQ/L Anion Gap 12 MEQ/L Estimat Glomerular Filtration Rate 57 ML/MIN Free Thyroxine 1.08 NG/DL Thyroid Stimulating Hormone 3rd Gen 2.700 uIU/ML Medical Decision Making Impression and Plan A: 62-year-old gentleman with a large right frontoparietal subacute on chronic subdural hemorrhage with mass-effect and midline shift with associated left hemiparesis. Unfortunately he has advanced cirrhosis with coagulopathy and thrombocytopenia among other comorbidities. Pt s/p bedside right emelyn hole drainage with subdural hemorrhage evacuation. Follow up CT head improved. P: Continue with DVT prophylaxis pt on SCDs. Continue with GI prophylaxis pt on Protonix. Continue with rehab efforts- PT/OT Dr. Carranza recommends follow up CT head in one month. If pt is planning on going to [place] with his daughters he will need to establish with a local Neurosurgeon and our recommendation is CT head in one month. If he has any difficulty with this he will notify our office. If he stays here locally we recommend a follow up CT and follow up in one month. Berhane Orellana Oct 17, 2017 10:05 am
--- NOTE | 2017-10-17 11:24 | HHI.PR ---
Subjective Remarks 10-15 The patient said that he spoke with the psychologist earlier. He had no acute complaints. He said he wants to live in a [place] in [place]. Discussed with nursing and case management. 10-16 NO NEW COMPLAINTS STATES HE SHOWERED TODAY IVANA RN AND PT AND CM [facility] YESTERDAY 10-17 AWAIT SAFE PLACEMENT NEEDS SNF AT DC VS [facility] IVANA RN AND PT AND CM AWAIT SAFE PL[facility] FOR DC Objective Vitals Vital Signs Date Time Temp Pulse Resp B/P (MAP) Pulse Ox O2 Delivery O2 Flow Rate FiO2 10/17/17 08:00 99.3 87 16 110/51 (70) 96 10/17/17 04:00 97.8 84 17 106/56 (73) 97 10/17/17 00:00 98.0 82 16 112/55 (74) 97 10/16/17 20:00 97.9 90 16 119/58 (78) 98 10/16/17 16:08 97.5 87 20 120/58 (78) 99 10/16/17 11:56 97.6 85 19 116/58 (77) 100 I/O 10/16/17 10/16/17 10/16/17 10/17/17 10/17/17 10/17/17 07:00 15:00 23:00 07:00 15:00 23:00 Intake Total 1050 ml Output Total 900 ml 225 ml 1350 ml Balance 150 ml -225 ml -1350 ml Intake Oral 1050 ml Output Urine Total 900 ml 225 ml 1350 ml # Voids 1 # Bowel Movements 3 Result Diagram: 10/17/17 0520 10/17/17 0520 Other Results Laboratory Tests Test 10/15/17 19:44 10/16/17 08:02 10/16/17 08:07 10/17/17 05:20 Random Glucose 137 MG/DL 87 MG/DL 88 MG/DL Blood Urea Nitrogen 15 MG/DL 17 MG/DL Creatinine 1.20 MG/DL 1.27 MG/DL Calcium Level 8.3 MG/DL 8.3 MG/DL Magnesium Level 1.6 MG/DL 1.6 MG/DL Sodium Level 135 MEQ/L 135 MEQ/L Potassium Level 4.2 MEQ/L 4.1 MEQ/L Chloride Level 105 MEQ/L 103 MEQ/L Carbon Dioxide Level 20.4 MEQ/L 20.2 MEQ/L Anion Gap 10 MEQ/L 12 MEQ/L Estimat Glomerular Filtration Rate 61 ML/MIN 57 ML/MIN White Blood Count 4.9 TH/MM3 4.7 TH/MM3 Red Blood Count 2.57 MIL/MM3 2.55 MIL/MM3 Hemoglobin 9.0 GM/DL 8.8 GM/DL Hematocrit 25.7 % 25.6 % Mean Corpuscular Volume 100.0 FL 100.2 FL Mean Corpuscular Hemoglobin 34.8 PG 34.6 PG Mean Corpuscular Hemoglobin Concent 34.8 % 34.5 % Red Cell Distribution Width 16.1 % 15.5 % Platelet Count 53 TH/MM3 57 TH/MM3 Mean Platelet Volume 9.2 FL 8.7 FL Neutrophils (%) (Auto) 69.2 % Lymphocytes (%) (Auto) 15.9 % Monocytes (%) (Auto) 12.9 % Eosinophils (%) (Auto) 1.2 % Basophils (%) (Auto) 0.8 % Neutrophils # (Auto) 3.2 TH/MM3 Lymphocytes # (Auto) 0.7 TH/MM3 Monocytes # (Auto) 0.6 TH/MM3 Eosinophils # (Auto) 0.1 TH/MM3 Basophils # (Auto) 0.0 TH/MM3 CBC Comment AUTO DIFF Differential Comment AUTO DIFF CONFIRMED Platelet Estimate LOW Platelet Morphology Comment NORMAL Total Protein 7.0 GM/DL Albumin 1.9 GM/DL Phosphorus Level 3.5 MG/DL Alkaline Phosphatase 86 U/L Aspartate Amino Transf (AST/SGOT) 49 U/L Alanine Aminotransferase (ALT/SGPT) 22 U/L Total Bilirubin 3.8 MG/DL Free Thyroxine 1.08 NG/DL Thyroid Stimulating Hormone 3rd Gen 2.700 uIU/ML Imaging Last Impressions Head CT 10/16/17 0000 Signed Impressions: CONCLUSION: 1. Persistent right frontoparietal subdural collection which is decreased in o verall size compared to 09/23/2017 but still prominent in width in the frontal r egion measuring 2.1 cm in greatest width. The majority of the collection is com posed of subacute blood although there are small areas of hyperdense blood prod ucts suggesting some acute hemorrhage. There is 3 mm of subfalcine herniation t o the left which is slightly improved compared to the previous examination. 2. Stable tiny acute left frontal subdural measuring 2 mm in greatest width. Abdomen/Pelvis CT 6/7/18 0000 Signed Impressions: CONCLUSION: 1. Cirrhotic liver appearance with prominent stigmata of portal hypertension. 2. Nonspecific lymphadenopathy. 3. Mild ascites. 4. Gallstones. 5. Medullary nephrocalcinosis. 6. Small effusions and mild lung base atelectasis. Renal Ultrasound 10/08/17 Signed Impressions: CONCLUSION: 1. There are no findings to indicate obstruction. Kidneys have a normal appear ance. 2. Small volume of ascites in this patient with cirrhosis. Abdomen Ultrasound 10/06/17 Signed Impressions: CONCLUSION: 1. Small amount of ascites along the edge of the liver. 2. Nodularity of the hepatic contour suggesting cirrhosis. Liver Ultrasound 10/04/17 Signed Impressions: CONCLUSION: 1. No specific abnormality is identified to explain the patient's fever. 2. However, there are persistent findings indicating cirrhosis with findings o f portal hypertension including splenomegaly, recanalized paraumbilical vein, a nd ascites. 3. There is hepatofugal flow in the main portal vein. Chest X-Ray 10/04/17 Signed Impressions: CONCLUSION: No acute cardiopulmonary process. Shoulder X-Ray 09/09/17 Signed Impressions: Service Date/Time: Saturday, September 09, 2017 21:01 - CONCLUSION: 1. No acute bony abnormality. Vito Minor MD Lower Extremity Ultrasound 09/09/17 Signed Impressions: Service Date/Time: Saturday, September 09, 2017 21:41 - CONCLUSION: Normal examination. Henok Young MD Elbow X-Ray 09/09/17 Signed Impressions: Service Date/Time: Saturday, September 09, 2017 20:53 - CONCLUSION: 1. No acute bony abnormalities. Vito Minor MD Objective Remarks GENERAL: Awake and alert and oriented 3 talkative and cooperative SKIN: Warm and dry. Multiple tattoos HEAD: Atraumatic. Normocephalic. EYES: Pupils equal and round. No scleral icterus. No injection or drainage. ENT: No nasal bleeding or discharge. Mucous membranes pink and moist. NECK: Trachea midline. No JVD. CARDIOVASCULAR: Regular rate and rhythm. S1-S2 no S3 or S4 RESPIRATORY: No accessory muscle use. Clear to auscultation. Breath sounds equal bilaterally. GASTROINTESTINAL: Abdomen soft, non-tender, nondistended. Hepatic and splenic margins not palpable. MUSCULOSKELETAL: Extremities without clubbing, cyanosis, or edema. No obvious deformities. NEUROLOGICAL: Awake and alert. No obvious cranial nerve deficits. Motor grossly within normal limits. Five out of 5 muscle strength in the arms and legs on the right. Normal speech. Left upper extremity weakness has improved PSYCHIATRIC: Appropriate mood and affect; insight and judgment normal. Procedures EGD PROCEDURE REPORT EXAM DATE: 09/12/2017 PATIENT NAME: Malik Valentine MR #: [id number] BIRTHDATE: 1955 ATTENDING: Med Dominguez MD ORDER #: [id number] DECK SPECIALIST: Julienne Castro RN STATUS: inpatient INDICATIONS: The patient is a 62 yr old male here for an EGD due to Cirrhosis PROCEDURE PERFORMED: EGD, diagnostic MEDICATIONS: None and Per Anesthesia. TOPICAL ANESTHETIC: CONSENT: The patient understands the risks and benefits of the procedure and understands that these risks include, but are not limited to: sedation, allergic reaction, infection, perforation and/or bleeding. Alternative means of evaluation and treatment include, among others: physical exam, x-rays, and/or surgical intervention. The patient elects to proceed with this endoscopic procedure. medical equipment was checked for proper function. Hand hygiene and appropriate measures for infection prevention was taken. After the risks, benefits and alternatives of the procedure were thoroughly explained, Informed consent was verified, confirmed and timeout was successfully executed by the treatment team. The patient was anesthetized with topical anesthesia and the Pentax [id number] endoscope was introduced through the mouth and advanced to the second portion of the duodenum. Retroflexed views revealed no abnormalities The gastroscope was then slowly withdrawn and removed. ESOPHAGUS: There was LA Class B esophagitis noted. STOMACH: There was erythematous moderate gastritis in the gastric antrum. Severe portal hypertensive gastropathy was found in the gastric body and gastric fundus. DUODENUM: Moderate duodenal inflammation was found in the bulb and second portion of the duodenum. ADVERSE EVENTS: There were no complications. IMPRESSIONS: 1. There was LA Class B esophagitis noted 2. There was erythematous gastritis in the gastric antrum 3. Portal hypertensive gastropathy was found in the gastric body and gastric fundus 4. Duodenal inflammation was found in the bulb and second portion of the duodenum 5. Retroflexed views revealed no abnormalities RECOMMENDATIONS: 1. Anti-reflux regimen 2. Continue PPI 3. Avoid NSAIDS PATIENT CONDITION: stable DISPOSITION: Inpatient REPEAT EXAM: Return 6 months EGD [facility] ON 09-20 FOR SDH EVACUATION Medications and IVs Current Medications Sodium Chloride (NS Flush) 2 ml UNSCH PRN IV FLUSH FLUSH AFTER USING IV ACCESS ; Start 09/09/17 at 07:15; Stop 09/09/17 at 09:34; Status DC Lidocaine HCl (Lidoderm 5% Patch.12 Hr) 1 patch ONCE ONCE T-DERMAL ; Start 09/09 at 08:45; Stop 09/09/17 at 08:46; Status DC Sodium Chloride (NS Flush) 2 ml UNSCH PRN IV FLUSH FLUSH AFTER USING IV ACCESS Last administered on 09/24/17at 21:30; Start 09/09/17 at 09:15 Sodium Chloride (NS Flush) 2 ml BID IV FLUSH Last administered on 10/17/17at 09: 10; Start 09/09/17 at 21:00 Acetaminophen (Tylenol) 650 mg Q4H PRN PO TEMP > 100.4; Start 09/09/17 at 09:15 ; Stop 09/09/17 at 19:57; Status DC Ondansetron HCl (Zofran Inj) 4 mg Q6H PRN IVP NAUSEA OR VOMITING Last administered on 09/28/17at 21:48; Start 09/09/17 at 09:15 Naloxone HCl (Narcan Inj) 0.4 mg UNSCH PRN IV PUSH SEE LABEL COMMENTS; Start at 09:15 Senna/Docusate Sodium (Toña-Colace) 1 tab BID PO Last administered on at 22:34; Start 09/09/17 at 21:00 Magnesium Hydroxide (Milk Of Magnesia Liq) 30 ml Q12H PRN PO Mild constipation Last administered on 10/01/17at 02:38; Start 09/09/17 at 09:15 Sennosides (Senokot) 17.2 mg Q12H PRN PO Moderate constipation; Start 09/09/17 at 09:15 Bisacodyl (Dulcolax Supp) 10 mg DAILY PRN RECTAL SEVERE CONSITIPATION; Start at 09:15 Lactulose (Lactulose Liq) 30 ml DAILY PRN PO SEVERE CONSITIPATION; Start at 09:15; Stop 09/09/17 at 19:58; Status DC Potassium Chloride (KCl) 60 meq ONCE ONCE PO Last administered on 09/09/17at 11: 42; Start 09/09/17 at 10:00; Stop 09/09/17 at 10:01; Status DC Iohexol (Omnipaque 350 Inj) 86 ml STK-MED ONCE IVCONTRAST Last administered on 09/09/17at 09:16; Start 09/09/17 at 09:16; Stop 09/09/17 at 09:17; Status DC Flumazenil (Romazicon Inj) 0.2 mg Q1M PRN IV PUSH SEE LABEL COMMENTS; Start 09/09/17 at 20:00 Lorazepam (Ativan) 1 mg Q4H PRN PO CIWA 8 - 10; Start 09/09/17 at 20:00 Lorazepam (Ativan Inj) 1 mg Q4H PRN IV PUSH CIWA 8 - 10; Start 09/09/17 at 20:00 Lorazepam (Ativan) 2 mg Q2H PRN PO CIWA 11-14; Start 09/09/17 at 20:00 Lorazepam (Ativan Inj) 2 mg Q2H PRN IV PUSH CIWA 11-14; Start 09/09/17 at 20:00 Lorazepam (Ativan Inj) 2 mg Q1H PRN IV PUSH CIWA 15-20; Start 09/09/17 at 20:00 Lorazepam (Ativan Inj) 2 mg Q15M PRN IV PUSH CIWA > 20; Start 09/09/17 at 20:00 Lactulose (Lactulose Liq) 30 ml QID PO Last administered on 09/19/17at 20:19; Start 09/09/17 at 21:00; Stop 09/20/17 at 08:51; Status DC Spironolactone (Aldactone) 25 mg DAILY PO Last administered on 10/17/17at 09:10 ; Start 09/09/17 at 20:00 Clonidine (Catapres) 0.1 mg Q6H PRN PO SYS BP GREATER THAN 160 MMHG; Start 09/09 at 20:00; Status Cancel Pantoprazole Sodium (Protonix) 40 mg DAILY PO Last administered on 09/18/17at 09 :26; Start 09/10/17 at 09:00; Stop 09/18/17 at 14:28; Status DC Acetaminophen/ Hydrocodone Bitart (Thurmond 5-325 Mg) 1 tab Q6H PRN PO PAIN > 5 Last administered on 09/18/17at 12:31; Start 09/09/17 at 23:15; Stop 09/18/17 at 14:28; Status DC Phytonadione 10 mg/Sodium Chloride 51 ml @ 102 mls/hr ONCE ONCE IV Last administered on 09/10/17at 11:00; Start 09/10/17 at 11:00; Stop 09/10/17 at 11:29; Status DC Phytonadione (Mephyton Liq) 5 mg DAILY PO Last administered on 09/18/17at 09:25 ; Start 09/11/17 at 09:00; Stop 09/18/17 at 14:28; Status DC Clonidine (Catapres) 0.1 mg Q6H PRN PO SYS BP GREATER THAN 160 MMHG Last administered on 10/17/17at 09:11; Start 09/10/17 at 12:45 Propranolol HCl (Inderal) 20 mg Q8HR PO Last administered on 09/14/17at 14:13; Start 09/10/17 at 14:00; Stop 09/14/17 at 15:50; Status DC Potassium Chloride (KCl) 40 meq ONCE ONCE PO Last administered on 09/10/17at 16: 23; Start 09/10/17 at 14:15; Stop 09/10/17 at 14:39; Status DC Lisinopril (Prinivil) 20 mg DAILY PO Last administered on 09/17/17at 10:00; Start 09/10/17 at 14:30; Stop 09/18/17 at 14:09; Status DC Lactated Ringer's 1,000 ml @ 30 mls/hr Q24H PRN IV SEE LABEL COMMENTS Last administered on 09/12/17at 09:54; Start 09/11/17 at 23:00; Stop 09/14/17 at 22:59 ; Status DC Sodium Chloride 500 ml @ 30 mls/hr [id number] PRN IV SEE LABEL COMMENTS Last administered on 09/12/17at 00:20; Start 09/11/17 at 23:00; Stop 09/14/17 at 22:59 ; Status DC Metoprolol Tartrate (Lopressor) 25 mg [employer]OR PRN PO SEE LABEL COMMENTS; Start 09/11/17 at 23:00; Stop 09/14/17 at 22:59; Status DC Povidone Iodine (Betadine 5% Antisepsis Kit) 1 applic [employer] ADVISOR PRN EACH NARE SEE LABEL COMMENTS; Start 09/11/17 at 23:00; Stop 09/14/17 at 22:59; Status DC Chlorhexidine Gluconate (Chlorhexidine 2% Cloth) 3 pack [employer] ADVISOR PRN TOPICAL SEE LABEL COMMENTS; Start 09/11/17 at 23:00; Stop 09/14/17 at 22:59; Status DC Insulin Human Regular (NovoLIN R INJ) See Protocol Table ... [employer] RESOURCE ADVISOR PRN SQ SEE PROTOCOL TABLE; Start 09/11/17 at 23:00; Stop 09/14/17 at 22:59; Status DC Lidocaine HCl (Xylocaine-Mpf 1% Inj) 5 ml STK-MED ONCE OTHER ; Start 09/12/17 at 12:00; Stop 09/13/17 at 12:43; Status DC Propofol (Diprivan 200 Mg/20 ml Inj) 200 mg STK-MED ONCE IV ; Start 09/12/17 at 12:00; Stop 09/13/17 at 12:43; Status DC Propranolol HCl (Inderal) 40 mg Q8HR PO Last administered on 09/17/17at 20:57; Start 09/14/17 at 22:00; Stop 09/18/17 at 14:09; Status DC Furosemide (Lasix) 40 mg DAILY PO Last administered on 10/17/17at 09:10; Start 09/15/17 at 13:30 Amlodipine Besylate (Norvasc) 5 mg DAILY PO Last administered on 09/21/17at 08: 27; Start 09/15/17 at 13:30; Stop 09/21/17 at 12:37; Status DC Phytonadione (Vitamin K Inj) 10 mg ONCE ONCE SQ ; Start 09/18/17 at 13:30; Stop 09/18/17 at 14:45; Status DC Phytonadione (Vitamin K Inj) 10 mg DAILY SQ ; Start 09/19/17 at 09:00; Stop at 09:00; Status DC Sodium Chloride 250 ml @ 15 mls/hr ONCE ONCE IV Last administered on at 22:49; Start 09/18/17 at 13:45; Stop 09/19/17 at 06:24; Status DC Acetaminophen (Tylenol) 650 mg Q4H PRN PO SEE LABEL COMMENTS Last administered on 09/26/17at 11:51; Start 09/18/17 at 13:45; Stop 09/28/17 at 10:35; Status DC Diphenhydramine HCl (Benadryl) 25 mg Q4H PRN PO SEE LABEL COMMENTS Last administered on 10/03/17at 11:08; Start 09/18/17 at 13:45; Stop 10/03/17 at 11:08 ; Status DC Furosemide (Lasix Inj) 20 mg ONCE ONCE IV PUSH Last administered on 09/18/17at 22:49; Start 09/18/17 at 13:45; Stop 09/18/17 at 13:51; Status DC Phytonadione 10 mg/Sodium Chloride 51 ml @ 102 mls/hr DAILY IV Last administered on 09/20/17at 09:19; Start 09/19/17 at 09:00; Stop 09/21/17 at 08:59 ; Status DC Labetalol HCl (Trandate Inj) 10 mg Q1HR PRN IV PUSH SBP>140, DBP>90, HR>65 Last administered on 09/21/17at 03:30; Start 09/18/17 at 14:15 Nicardipine HCl 25 mg/Sodium Chloride 250 ml @ 50 mls/hr TITRATE PRN IV Blood pressure management; Start 09/18/17 at 14:15 Sodium Chloride 188 meq/Sodium Chloride 1,047 ml @ 30 mls/hr Q24H IV Last administered on 09/22/17at 20:00; Start 09/18/17 at 15:00; Stop 09/23/17 at 09:12 ; Status DC Levetriacetam 500 mg/Sodium Chloride 105 ml @ 420 mls/hr Q12HR IV Last administered on 09/25/17at 08:35; Start 09/18/17 at 21:00; Stop 09/25/17 at 20:59 ; Status DC Multivitamins 10 ml/Thiamine HCl 100 mg/Folic Acid 1 mg/Sodium Chloride 511.2 ml @ 125 mls/hr ONCE ONCE IV Last administered on 09/18/17at 17:58; Start at 16:00; Stop 09/18/17 at 20:05; Status DC Multivitamins 10 ml/Thiamine HCl 100 mg/Folic Acid 1 mg/Sodium Chloride 511.2 ml @ 125 mls/hr DAILY IV Last administered on 09/20/17at 14:25; Start 09/19/17 at 09:00; Stop 09/21/17 at 08:59; Status DC Pantoprazole Sodium (Protonix Inj) 40 mg DAILY IV PUSH Last administered on at 08:27; Start 09/18/17 at 14:30; Stop 09/21/17 at 15:04; Status DC Acetaminophen 100 ml @ 400 mls/hr Q8HR PRN IV fever; Start 09/18/17 at 14:30; Stop 10/01/17 at 14:15; Status DC Morphine Sulfate (Morphine Inj) 2 mg Q4H PRN IV PUSH Pain 1 through 7 Last administered on 09/27/17at 09:48; Start 09/18/17 at 14:30; Stop 09/28/17 at 10:32 ; Status DC Morphine Sulfate (Morphine Inj) 4 mg Q4HR PRN IV PUSH Pain 8-10 Last administered on 09/25/17at 02:59; Start 09/18/17 at 14:30; Stop 09/28/17 at 10:32 ; Status DC Sodium Chloride (NS Flush) 2 ml UNSCH PRN IV FLUSH FLUSH AFTER USING IV ACCESS ; Start 09/18/17 at 14:45; Stop 09/18/17 at 14:45; Status DC Sodium Chloride (NS Flush) 2 ml BID IV FLUSH ; Start 09/18/17 at 21:00; Stop at 21:00; Status DC Artificial Tears (Tears Naturale Opth Soln) 1 drop TID EACH EYE Last administered on 10/10/17at 09:42; Start 09/18/17 at 18:00 Ondansetron HCl (Zofran Odt) 4 mg Q6H PRN PO NAUSEA OR VOMITING; Start at 14:45 Albuterol/ Ipratropium (Duoneb Neb) 1 ampule Q6HR NEB INH Last administered on 09/21/17at 08:05; Start 09/18/17 at 16:00; Stop 09/22/17 at 15:59; Status DC Albuterol Sulfate (Albuterol Neb) 2.5 mg Q2HR NEB PRN INH SOB/WHEEZING Last administered on 09/28/17at 12:28; Start 09/18/17 at 14:45 Miscellaneous Information ([facility] Information) 1 [id number] Last administered on 09/18/17at 14:45; Start 09/18/17 at 14:45 Chlorhexidine Gluconate (Chlorhexidine 2% Cloth) Taper DAILY@04 TOP Last administered on 09/23/17at 04:00; Start 09/19/17 at 04:00; Stop 09/15/18 at 03:59 Chlorhexidine Gluconate (Chlorhexidine 2% Cloth) 3 pack UNSCH PRN TOP HYGIENIC CARE; Start 09/18/17 at 14:45 Phytonadione 10 mg/Sodium Chloride 51 ml @ 102 mls/hr ONCE ONCE IV Last administered on 09/18/17at 16:00; Start 09/18/17 at 16:00; Stop 09/18/17 at 16:29 ; Status DC Magnesium Sulfate/ Dextrose 100 ml @ 100 mls/hr ONCE ONCE IV Last administered on 09/18/17at 16:12; Start 09/18/17 at 16:00; Stop 09/18/17 at 16:59 ; Status DC Sodium Chloride 250 ml @ 15 mls/hr ONCE ONCE IV Last administered on at 16:20; Start 09/19/17 at 13:30; Stop 09/20/17 at 06:09; Status DC Sodium Chloride 250 ml @ 15 mls/hr ONCE ONCE IV Last administered on at 09:20; Start 09/20/17 at 07:15; Stop 09/20/17 at 23:54; Status DC Lactulose (Lactulose Liq) 30 ml DAILY PO Last administered on 10/01/17at 08:58; Start 09/20/17 at 09:00; Stop 10/01/17 at 11:16; Status DC Midazolam HCl (Versed Inj) 5 mg ONCE ONCE IV Last administered on 09/20/17at 13 :20; Start 09/20/17 at 10:00; Stop 09/20/17 at 10:01; Status DC Morphine Sulfate (Morphine Inj) 8 mg ONCE ONCE IV PUSH Last administered on at 13:20; Start 09/20/17 at 10:00; Stop 09/20/17 at 10:01; Status DC Potassium Chloride 100 ml @ 50 mls/hr Q2H PRN IV For Potassium 2.8 - 3.2 mEq/L ; Start 09/20/17 at 14:30; Stop 09/29/17 at 07:38; Status DC Potassium Chloride 100 ml @ 50 mls/hr Q2H PRN IV For Potassium 2.8 - 3.2 mEq/L ; Start 09/20/17 at 14:30; Stop 09/29/17 at 07:38; Status DC Potassium Bicarb/ Potassium Chloride (K-Lyte Cl Eff) 50 meq UNSCH PRN PO For Potassium 3.3 - 3.5 mEq/L; Start 09/20/17 at 14:30; Stop 09/29/17 at 07:38; Status DC Potassium Chloride 100 ml @ 25 mls/hr UNSCH PRN IV For Potassium 3.3 - 3.5 mEq /L; Start 09/20/17 at 14:30; Stop 09/29/17 at 07:39; Status DC Potassium Chloride 100 ml @ 50 mls/hr Q2H PRN IV For Potassium 3.3 - 3.5 mEq/ L Last administered on 09/21/17at 12:21; Start 09/20/17 at 14:30; Stop 09/29/17 at 07:39; Status DC Magnesium Sulfate 4 gm/Sodium Chloride 100 ml @ 50 mls/hr UNSCH PRN IV For Magnesium 0.9 - 1.1 mg/dL; Start 09/20/17 at 14:30; Stop 09/29/17 at 07:38; Status DC Magnesium Oxide (Mag-Ox) 800 mg UNSCH PRN PO For Magnesium 1.2 - 1.6 mg/dL; Start 09/20/17 at 14:30; Stop 09/29/17 at 07:39; Status DC Magnesium Sulfate 2 gm/Sodium Chloride 100 ml @ 50 mls/hr UNSCH PRN IV For Magnesium 1.2 - 1.6 mg/dL; Start 09/20/17 at 14:30; Stop 09/29/17 at 07:39; Status DC Potassium Phosphate (K-Phos) 2,000 mg Q4H PRN PO For Phosphorus < 2.5 mg/dL; Start 09/20/17 at 14:30; Stop 09/29/17 at 07:39; Status DC Sodium Phosphate 30 mmol/Sodium Chloride 250 ml @ 42 mls/hr UNSCH PRN IV For Phosphorus < 2.5 mg/dL Last administered on 09/22/17at 19:59; Start 09/20/17 at 14:30; Stop 09/29/17 at 07:39; Status DC Potassium Phosphate (K-Phos) 2,000 mg UNSCH PRN PO/TUBE SEE LABEL COMMENTS; Start 09/20/17 at 14:30; Stop 09/29/17 at 07:39; Status DC Potassium Phosphate 30 mmol/ Sodium Chloride 260 ml @ 42 mls/hr UNSCH PRN IV SEE LABEL COMMENTS; Start 09/20/17 at 14:30; Stop 09/29/17 at 07:39; Status DC Amlodipine Besylate (Norvasc) 10 mg DAILY PO Last administered on 10/17/17at 09: 10; Start 09/22/17 at 09:00 Hydralazine HCl (Apresoline Inj) 10 mg Q1HR PRN IV PUSH SBP>140, DBP>90; Start 09/21/17 at 12:45 Enalaprilat (Vasotec Inj) 1.25 mg Q8H PRN IV PUSH SBP>140, DBP>90 Last administered on 10/17/17at 09:11; Start 09/21/17 at 12:45 Clevidipine 50 ml @ 2 mls/hr TITRATE PRN IV Blood Pressure Management; Start at 13:00 Phytonadione (Mephyton) 5 mg ONCE ONCE PO ; Start 09/21/17 at 16:00; Stop 09/21 at 16:00; Status DC Pantoprazole Sodium (Protonix) 40 mg DAILY PO Last administered on 10/17/17at 09 :10; Start 09/22/17 at 09:00 Phytonadione (Mephyton Liq) 5 mg ONCE PO Last administered on 09/21/17at 21:00; Start 09/21/17 at 16:00; Stop 09/21/17 at 17:00; Status DC Hydralazine HCl (Apresoline) 25 mg Q8HR PO Last administered on 10/17/17at 06:12 ; Start 09/21/17 at 15:45 Potassium Chloride (KCl) 30 meq ONCE ONCE PO Last administered on 09/22/17at 16 :47; Start 09/22/17 at 16:30; Stop 09/22/17 at 16:35; Status DC Magnesium Sulfate/ Dextrose 100 ml @ 100 mls/hr ONCE ONCE IV ; Start 09/22/17 at 16:30; Stop 09/22/17 at 17:29; Status Cancel Magnesium Sulfate/ Dextrose 100 ml @ 100 mls/hr Q1H IV Last administered on at 20:31; Start 09/22/17 at 16:30; Stop 09/22/17 at 19:29; Status DC Thiamine HCl (Vitamin B1) 100 mg DAILY PO Last administered on 10/17/17at 09:10 ; Start 09/25/17 at 09:00 Multivitamins (Theragran) 1 tab DAILY PO Last administered on 10/17/17at 09:10; Start 09/25/17 at 09:00 Phytonadione (Mephyton) 2.5 mg ONCE ONCE PO ; Start 09/24/17 at 12:45; Stop at 13:23; Status DC Phytonadione (Mephyton Liq) 2.5 mg ONCE ONCE PO ; Start 09/24/17 at 14:30; Stop 09/24/17 at 14:30; Status DC Phytonadione (Mephyton Liq) 2.5 mg ONCE ONCE PO Last administered on at 14:35; Start 09/24/17 at 14:30; Stop 09/24/17 at 14:31; Status DC Zolpidem Tartrate (Ambien) 5 mg ONCE ONCE PO Last administered on 09/26/17at 22 :34; Start 09/26/17 at 22:30; Stop 09/26/17 at 22:31; Status DC Acetaminophen (Tylenol) 500 mg Q4H PRN PO PAIN 1-4 ON SCALE;FEVER Last administered on 10/13/17at 21:06; Start 09/28/17 at 10:45 Melatonin (Melatonin) 5 mg ONCE ONCE PO Last administered on 09/29/17at 23:17; Start 09/29/17 at 22:00; Stop 09/29/17 at 22:01; Status DC Melatonin (Melatonin) 5 mg HS PRN PO INSOMNIA Last administered on 10/14/17at 20 :16; Start 09/30/17 at 21:00; Stop 10/15/17 at 13:38; Status DC Oxycodone HCl (Roxicodone) 5 mg Q6H PRN PO PAIN GREATER THAN 5 Last administered on 10/16/17at 19:56; Start 10/01/17 at 11:15 Lactulose (Lactulose Liq) 30 ml TID PO Last administered on 10/15/17at 18:10; Start 10/01/17 at 13:00 Ibuprofen (Motrin) 400 mg Q6H PRN PO fever>100.4 Last administered on 10/04/17at 12:39; Start 10/04/17 at 12:00 Vancomycin HCl 1100 mg/Sodium Chloride 261 ml @ 250 mls/hr ONCE ONCE IV ; Start 10/04/17 at 13:00; Stop 10/04/17 at 13:15; Status DC Piperacillin Sod/ Tazobactam Sod 100 ml @ 200 mls/hr Q6H IV ; Start 10/04/17 at 14:00; Status Cancel Vancomycin HCl 1000 mg/Sodium Chloride 250 ml @ 250 mls/hr ONCE ONCE IV Last administered on 10/04/17at 14:18; Start 10/04/17 at 14:00; Stop 10/04/17 at 14:59; Status DC Metronidazole (Flagyl) 500 mg Q8H PO Last administered on 10/07/17at 05:51; Start 10/04/17 at 15:00; Stop 10/07/17 at 13:42; Status DC Sodium Chloride 1,000 ml @ 84 mls/hr [id number] IV Last administered on 10/04/17at 16:46; Start 10/04/17 at 15:15; Stop 10/05/17 at 03:09; Status DC Piperacillin Sod/ Tazobactam Sod 100 ml @ 200 mls/hr Q6H IV Last administered on 10/07/17at 10:00; Start 10/04/17 at 17:00; Stop 10/07/17 at 13:42; Status DC Ceftriaxone Sodium 2000 mg/ Sodium Chloride 100 ml @ 200 mls/hr Q24H IV Last administered on 10/13/17at 12:49; Start 10/07/17 at 14:00; Stop 10/14/17 at 11:46 ; Status DC Potassium Chloride (KCl) 20 meq ONCE ONCE PO Last administered on 10/09/17at 17: 21; Start 10/09/17 at 15:30; Stop 10/09/17 at 15:31; Status DC Diatrizoate Meglum/ Diatrizoate Sod ( Gastroview Liq) 18 ml ONCE ONCE PO Last administered on 10/10/17at 12:47; Start 10/10/17 at 12:30; Stop 10/10/17 at 12: 31; Status DC Potassium Chloride (KCl) 40 meq ONCE ONCE PO Last administered on 10/12/17at 17: 08; Start 10/12/17 at 15:15; Stop 10/12/17 at 15:16; Status DC Magnesium Sulfate/ Dextrose 100 ml @ 100 mls/hr Q1H IV Last administered on 02/20at 16:42; Start 10/13/17 at 15:15; Stop 10/13/17 at 17:14; Status DC Levofloxacin (Levaquin) 750 mg DAILY PO Last administered on 10/17/17at 09:10; Start 10/14/17 at 12:00; Stop 11/01/17 at 11:59 Trazodone HCl (Desyrel) 50 mg HS PRN PO insomnia Last administered on at 22:34; Start 10/15/17 at 21:00 A/P Problem List: (1) Liver cirrhosis ICD Code: K74.60 - Unspecified cirrhosis of liver (2) Spleen hematoma ICD Code: S36.029A - Unspecified contusion of spleen, initial encounter Status: Acute (3) Hyperbilirubinemia ICD Code: E80.6 - Other disorders of bilirubin metabolism Status: Acute (4) Splenomegaly ICD Code: R16.1 - Splenomegaly, not elsewhere classified Status: Chronic (5) Ascites ICD Code: R18.8 - Other ascites Status: Chronic (6) Hypokalemia ICD Code: E87.6 - Hypokalemia Status: Resolved (7) Macrocytic anemia ICD Code: D53.9 - Nutritional anemia, unspecified Status: Chronic (8) HTN (hypertension) ICD Code: I10 - Essential (primary) hypertension Status: Chronic (9) Fall ICD Code: W19.XXXA - Unspecified fall, initial encounter Status: Acute (10) Left shoulder pain ICD Code: M25.512 - Pain in left shoulder (11) Edema of left lower extremity ICD Code: R60.0 - Localized edema (12) Hyperammonemia ICD Code: E72.20 - Disorder of urea cycle metabolism, unspecified (13) Coagulopathy ICD Code: D68.9 - Coagulation defect, unspecified Status: Acute (14) Diarrhea ICD Code: R19.7 - Diarrhea, unspecified Assessment and Plan Acute/subacute/chronic right subdural hematoma -3.5 cm thickness with compression of the sulci/gyri with the right to left subfalcine shift 4.7 mm/ Acute encephalopathy CT brain 09/18 revealed acute, subacute and chronic components to right subdural hematoma. 3.5 cm. Compression of the sulci and gyri. Right frontal right-to- left subfalcine shift approximately [address] brain 09/23 - interval placement of a right frontal subdural drain. There has been replacement of some of the frontal subdural fluid with air. Otherwise little change in the configuration with persistent grossly stable subfalcine shift in lateral ventricular compression with effacement of hemispheric cortical sulci. Status post right bur hole by Dr. Carranza. Drain have since been removed. Patient was placed on levetiracetam 500 mg IV twice daily 7 days. EEG with mild to moderate encephalopathic changes; No epileptic activity. - Blood pressure control keep systolic blood pressure less than 140. - Multivitamin, thiamine and folate daily 3 days has been completed. - Seizure precautions. - Pain medications as needed. - daughter is trying to arrange SNF placement in [place], but it may take a while to get approved. Case management assistance appreciated. E. coli bacteremia ID consult appreciated. Repeat CT abdomen unremarkable. - continue ceftriaxone per ID. May change to PO upon discharge. - Follow repeat blood cultures. NGTD. Hepatitis C genotype 1A viral load positive/ LA class B esophagitis/ Portal hypertension/ Abdominal ascites/ Elevated transaminases CT abdomen/pelvis 09/09 revealed abdominal ascites, esophageal/gastric varices. Splenomegaly. Shrunken liver. Small splenic hematoma. EGD 09/12 revealed LA class B esophagitis, gastric erythema of the antrum gastric and duodenal bulb/ second portion, portal hypertension/gastropathy. - Patient is on pantoprazole 40 mg po daily/home medications pantoprazole. - Diet as tolerated. - Outpatient evaluation for positive hepatitis C genotype 1A for treatment. - Recheck liver function tests as clinically indicated. Stable. - Continue lactulose 3 times daily. - Added Ensure 3 times daily. - Continue diuretics. Depression/ Insomnia Seems situational, s/t above. Neuropsychology consult appreciated. - low dose Ativan as needed. - consider Celexa per neuropsych. - trazodone added for insomnia. D/c melatonin. Tobaccoism Chronic. - Nasal cannula to maintain saturations greater than equal to 92%. - Incentive spirometry while awake. - Tobacco cessation self-education booklet will be provided. Acute kidney injury Avoid nephrotoxic medications. KAMILAH inhibitor has been held. Medullary nephrocalcinosis noted on CT abdomen. - continue Aldactone and Lasix as creatinine is returning to baseline. - Accurate I's and O - follow up with nephrology. Macrocytic anemia/ Thrombocytopenia/ Coagulopathic state secondary to underlying liver disease S/P Vitamin K. Received 4 pack platelets since admission along with 4 FFP, 2 liquid plasma, 2 cryoprecipitate. - follow CBC Chronic low back pain ARTEMIO 1:320 nucleolar positive with positive double-stranded DNA. Possibly also secondary to underlying liver disease/hepatitis. - Will need outpatient rheumatology workup - PT evaluate and treat. Hypokalemia Potassium level 3.5. - replete and monitor. Prophylax -GI -pantoprazole -DVT -SCD/holding pharmacological prophylaxis in light of acute subdural hematoma Discharge Planning PENDING SAFE DISCHARGE Problem Qualifiers (1) Liver cirrhosis: (2) Spleen hematoma: Qualified Codes: S36.029A - Unspecified contusion of spleen, initial encounter (3) Ascites: Qualified Codes: R18.8 - Other ascites (4) HTN (hypertension): Qualified Codes: I10 - Essential (primary) hypertension (5) Fall: Qualified Codes: W19.XXXA - Unspecified fall, initial encounter (6) Left shoulder pain: Qualified Codes: M25.512 - Pain in left shoulder (7) Diarrhea: Qualified Codes: R19.7 - Diarrhea, unspecified Gilbert Hayes DO Oct 17, 2017 11:24
[2017-10-17 12:00] VITALS: BP 94/51; PULSE 82; RESP 18; TEMP 98; O2SAT 98
[2017-10-17] MEDS: ACETAMINOPHEN 500 MG CPLT PO PRN (12:56)
[2017-10-17 16:00] VITALS: BP 94/55; PULSE 83; RESP 16; TEMP 98.3; O2SAT 98
[2017-10-17 17:27] LABS: HEMOGLOBIN A1C 3.3 % (4.3-6.0)
[2017-10-17 20:00] VITALS: BP 107/54; PULSE 90; RESP 18; TEMP 98; O2SAT 97
[2017-10-17] MEDS: traZODone HCL 50 MG TAB PO PRN (21:13)
[2017-10-18] VITALS: BP 111/54; PULSE 86; RESP 18; TEMP 98.2; O2SAT 97
[2017-10-18 04:00] VITALS: BP 107/55; PULSE 90; RESP 18; TEMP 98.1; O2SAT 96
[2017-10-18] MEDS: CHLORHEXIDINE GLUCONATE 2 % 1 PACK (2 CLOTHS) TOP SCH (04:00)
[2017-10-18] MEDS: hydrALAZINE HCL 25 MG TAB PO SCH ×3 (05:53→20:18)
[2017-10-18 08:00] VITALS: BP 104/54; PULSE 93; RESP 17; TEMP 98; O2SAT 95
[2017-10-18] MEDS: ARTIFICIAL TEARS OPTH SOLN 15 ML BTL EACH EYE SCH ×3 (08:16→16:16)
[2017-10-18] MEDS: DOCUSATE SODIUM 50 MG/SENNA 8.6 MG TAB PO SCH ×2 (08:16→20:18)
[2017-10-18] MEDS: SPIRONOLACTONE 25 MG TAB PO SCH (08:17)
[2017-10-18] MEDS: LACTULOSE SYRUP 20 GM/30 ML CUP PO SCH ×3 (08:17→16:16)
[2017-10-18] MEDS: LEVOFLOXACIN 750 MG TAB PO SCH (08:17)
[2017-10-18] MEDS: THIAMINE HCL 100 MG TAB PO SCH (08:17)
[2017-10-18] MEDS: PANTOPRAZOLE SOD 40 MG DELAYED RELEASE TAB PO SCH (08:17)
[2017-10-18] MEDS: FUROSEMIDE 40 MG TAB PO SCH (08:17)
[2017-10-18] MEDS: MULTIVITAMIN TAB PO SCH (08:17)
[2017-10-18] MEDS: SODIUM CHLORIDE 0.9% FLUSH 10 ML FLUSH IV FLUSH SCH ×2 (08:18→20:18)
--- NOTE | 2017-10-18 08:23 | HHI.PR ---
Neuropsych Emotional Emotional: Mild: Anxious/Fearful, Moderate: Depressed/Sad Behavior Behavior: Intact: Coping/Acceptance, Cooperative w/ Treatment, Motivation, Frustration Tolerance/[place], Impulsive/Agitated Cognitive Cognitive: Mild: Cognitive, Attention/Concentration, Confused/Orientation, Insight/Awareness, Judgement/Problem-Solving, Memory Psychosocial Psychosocial: Moderate: Psychosocial, Family/Other Adjustment, Realistic Expectation, Unable to Asses: Self-Esteem/Confidence Progress Notes/Response to Tx Contents of Sessions: Adjustment, Level of Consciousness Time with Patient: 30 minutes Premorbid psychological status Premorbid Cognitive, Emotional and Behavioral Status: Tenuous. The patient has high school years of education and a solid work history prior to this injury , but has been on disability for several years. The patient has no prior psychiatric difficulties, as described above, except ETOH dependence and depression. Substance abuse history includes ETOH, which has contributed to his medical state. Behavioral Reactions of Patient and Family/Support System: Tenuous. The patients family is experiencing ongoing issues of adjustment given the nature of the injury, and this aspect of recovery will require ongoing monitoring. Emotional/Behavioral Status of Patient and Family/Support System: Tenuous. Pertinent issues, if appropriate to this patients clinical care, are described in detail above. Maximizing acute care outcome Given his hepatic dysfunction, pharmacological management of his depression is limited to medications with the least side effect profile. One medication that may meet this criteria is Citalopram, which you may wish to consider, unless otherwise medically contraindicated. I will follow-up with this patient for supportive psychotherapeutic contact throughout the rest of his stay. Also, he does complain of insomnia, but he may only be a candidate for melatonin, which he currently is prescribed. The benefits of melatonin on sleep improve is better if taken several hours PRIOR to sleep, and as such the medication may be more effective if scheduled two to three hours PRIOR to sleep. At this point in the recovery process, the patient does have cognitive capacity as the patient is able to understand a situation and its likely consequences, and he is able to manipulate information rationally. Cognitive capacity will be assessed throughout the recovery process. Anticipated Problems Ongoing areas of concern will include depression and anxiety, which is expected to improve with time and treatment. Treatment Plan This clinician will continue to follow with you throughout the course of this patients acute care treatment, and I will be available to meet with the patient s family/support system to facilitate their understanding and the ongoing care of their family member. The goals of neuropsychological intervention shall be both educational and supportive to the family/support system as is deemed clinically appropriate. Impression This 62 year old male with a history of chronic ETOH abuse, ESLD and brain injury, who is now complaining of depression due to losses of activity and participation. He is to transfer to an SNF in [place]. Clinically, he has mild neurocognitive dysfunction related to his multiple medical comorbidities, yet he still has decision making capacity. Emotionally, the patient meets criteria for major depressive disorder. Diagnosis: (1) Mild neurocognitive disorder (2) Alcohol dependence in controlled environment (3) Major depressive disorder, single episode, mild with anxious distress Progress Note Narrative Day 39 of hospitalization. The patient is neurobehaviorally stable, awaiting transfer to [place]. His moods are improved, although physically he is fatigued, likely metabolic in origin given low platelets and NA. His affect is improved. No SI/HI. Provided him support and encouragement, including encouragement to get OOB and ambulate. I will follow. Manuel Suazo PhD Oct 18, 2017 8:23 am
[2017-10-18] MEDS: ACETAMINOPHEN 500 MG CPLT PO PRN (10:26)
[2017-10-18 12:16] VITALS: BP 115/61; PULSE 64; RESP 16; TEMP 98.1; O2SAT 97
--- NOTE | 2017-10-18 12:46 | HHI.PR ---
Subjective Remarks 6- The patient said that he spoke with the psychologist earlier. He had no acute complaints. He said he wants to live in a motel in [place]. Discussed with nursing and case management. 10-16 NO NEW COMPLAINTS STATES HE SHOWERED TODAY [facility] RN AND PT AND CM [facility] YESTERDAY 6- AWAIT SAFE PLACEMENT NEEDS SNF AT [place] VS [facility] RN AND PT AND CM AWAIT SAFE PLACE FOR DC 10-18 STILL AWAIT SAFE DC [facility] RN AND PT Objective Vitals Vital Signs Date Time Temp Pulse Resp B/P (MAP) Pulse Ox O2 Delivery O2 Flow Rate FiO2 10/18/17 12:16 98.1 64 16 115/61 (79) 97 10/18/17 11:08 14 10/18/17 08:00 98.0 93 17 104/54 (71) 95 10/18/17 04:00 98.1 90 18 107/55 (72) 96 10/18/17 00:00 98.2 86 18 111/54 (73) 97 10/17/17 20:00 98.0 90 18 107/54 (71) 97 10/17/17 16:00 98.3 83 16 94/55 (68) 98 I/O 10/17/17 10/17/17 10/17/17 10/18/17 10/18/17 10/18/17 07:00 15:00 23:00 07:00 15:00 23:00 Output Total 1350 ml 300 ml 200 ml Balance -1350 ml -300 ml -200 ml Output Urine Total 1350 ml 300 ml 200 ml # Voids 1 1 # Bowel Movements 1 Result Diagram: 10/17/17 0520 10/17/17 0520 Other Results Laboratory Tests Test 10/15/17 19:44 10/16/17 08:02 10/16/17 08:07 10/17/17 05:20 Random Glucose 137 MG/DL 87 MG/DL 88 MG/DL Blood Urea Nitrogen 15 MG/DL 17 MG/DL Creatinine 1.20 MG/DL 1.27 MG/DL Calcium Level 8.3 MG/DL 8.3 MG/DL Magnesium Level 1.6 MG/DL 1.6 MG/DL Sodium Level 135 MEQ/L 135 MEQ/L Potassium Level 4.2 MEQ/L 4.1 MEQ/L Chloride Level 105 MEQ/L 103 MEQ/L Carbon Dioxide Level 20.4 MEQ/L 20.2 MEQ/L Anion Gap 10 MEQ/L 12 MEQ/L Estimat Glomerular Filtration Rate 61 ML/MIN 57 ML/MIN White Blood Count 4.9 TH/MM3 4.7 TH/MM3 Red Blood Count 2.57 MIL/MM3 2.55 MIL/MM3 Hemoglobin 9.0 GM/DL 8.8 GM/DL Hematocrit 25.7 % 25.6 % Mean Corpuscular Volume 100.0 FL 100.2 FL Mean Corpuscular Hemoglobin 34.8 PG 34.6 PG Mean Corpuscular Hemoglobin Concent 34.8 % 34.5 % Red Cell Distribution Width 16.1 % 15.5 % Platelet Count 53 TH/MM3 57 TH/MM3 Mean Platelet Volume 9.2 FL 8.7 FL Neutrophils (%) (Auto) 69.2 % Lymphocytes (%) (Auto) 15.9 % Monocytes (%) (Auto) 12.9 % Eosinophils (%) (Auto) 1.2 % Basophils (%) (Auto) 0.8 % Neutrophils # (Auto) 3.2 TH/MM3 Lymphocytes # (Auto) 0.7 TH/MM3 Monocytes # (Auto) 0.6 TH/MM3 Eosinophils # (Auto) 0.1 TH/MM3 Basophils # (Auto) 0.0 TH/MM3 CBC Comment AUTO DIFF Differential Comment AUTO DIFF CONFIRMED Platelet Estimate LOW Platelet Morphology Comment NORMAL Total Protein 7.0 GM/DL Albumin 1.9 GM/DL Phosphorus Level 3.5 MG/DL Alkaline Phosphatase 86 U/L Aspartate Amino Transf (AST/SGOT) 49 U/L Alanine Aminotransferase (ALT/SGPT) 22 U/L Total Bilirubin 3.8 MG/DL Hemoglobin A1c 3.3 % Free Thyroxine 1.08 NG/DL Thyroid Stimulating Hormone 3rd Gen 2.700 uIU/ML Imaging Last Impressions Head CT 10/16/17 0000 Signed Impressions: CONCLUSION: 1. Persistent right frontoparietal subdural collection which is decreased in o verall size compared to 09/23/2017 but still prominent in width in the frontal r egion measuring 2.1 cm in greatest width. The majority of the collection is com posed of subacute blood although there are small areas of hyperdense blood prod ucts suggesting some acute hemorrhage. There is 3 mm of subfalcine herniation t o the left which is slightly improved compared to the previous examination. 2. Stable tiny acute left frontal subdural measuring 2 mm in greatest width. Abdomen/Pelvis CT 10/10/17 Signed Impressions: CONCLUSION: 1. Cirrhotic liver appearance with prominent stigmata of portal hypertension. 2. Nonspecific lymphadenopathy. 3. Mild ascites. 4. Gallstones. 5. Medullary nephrocalcinosis. 6. Small effusions and mild lung base atelectasis. Renal Ultrasound 10/08/17 Signed Impressions: CONCLUSION: 1. There are no findings to indicate obstruction. Kidneys have a normal appear ance. 2. Small volume of ascites in this patient with cirrhosis. Abdomen Ultrasound 10/06/17 Signed Impressions: CONCLUSION: 1. Small amount of ascites along the edge of the liver. 2. Nodularity of the hepatic contour suggesting cirrhosis. Liver Ultrasound 10/04/17 Signed Impressions: CONCLUSION: 1. No specific abnormality is identified to explain the patient's fever. 2. However, there are persistent findings indicating cirrhosis with findings o f portal hypertension including splenomegaly, recanalized paraumbilical vein, a nd ascites. 3. There is hepatofugal flow in the main portal vein. Chest X-Ray 10/04/17 Signed Impressions: CONCLUSION: No acute cardiopulmonary process. Shoulder X-Ray 09/09/17 Signed Impressions: Service Date/Time: Saturday, September 09, 2017 21:01 - CONCLUSION: 1. No acute bony abnormality. Vito Minor MD Lower Extremity Ultrasound 09/09/17 Signed Impressions: Service Date/Time: Saturday, September 09, 2017 21:41 - CONCLUSION: Normal examination. Henok Young MD Elbow X-Ray 09/09/17 Signed Impressions: Service Date/Time: Saturday, September 09, 2017 20:53 - CONCLUSION: 1. No acute bony abnormalities. Vito Minor MD Objective Remarks GENERAL: Awake and alert and oriented 3 talkative and cooperative SKIN: Warm and dry. Multiple tattoos HEAD: Atraumatic. Normocephalic. EYES: Pupils equal and round. No scleral icterus. No injection or drainage. ENT: No nasal bleeding or discharge. Mucous membranes pink and moist. NECK: Trachea midline. No JVD. CARDIOVASCULAR: Regular rate and rhythm. S1-S2 no S3 or S4 RESPIRATORY: No accessory muscle use. Clear to auscultation. Breath sounds equal bilaterally. GASTROINTESTINAL: Abdomen soft, non-tender, nondistended. Hepatic and splenic margins not palpable. MUSCULOSKELETAL: Extremities without clubbing, cyanosis, or edema. No obvious deformities. NEUROLOGICAL: Awake and alert. No obvious cranial nerve deficits. Motor grossly within normal limits. Five out of 5 muscle strength in the arms and legs on the right. Normal speech. Left upper extremity weakness has improved PSYCHIATRIC: Appropriate mood and affect; insight and judgment normal. Procedures EGD PROCEDURE REPORT EXAM DATE: 09/12/2017 PATIENT NAME: Malik Valentine MR #: [id number] BIRTHDATE: 1955 ATTENDING: Med Dominguez MD ORDER #: [id number] CORNER FORMER: Julienne Castro RN STATUS: inpatient INDICATIONS: The patient is a 62 yr old male here for an EGD due to Cirrhosis PROCEDURE PERFORMED: EGD, diagnostic MEDICATIONS: None and Per Anesthesia. TOPICAL ANESTHETIC: CONSENT: The patient understands the risks and benefits of the procedure and understands that these risks include, but are not limited to: sedation, allergic reaction, infection, perforation and/or bleeding. Alternative means of evaluation and treatment include, among others: physical exam, x-rays, and/or surgical intervention. The patient elects to proceed with this endoscopic procedure. medical equipment was checked for proper function. Hand hygiene and appropriate measures for infection prevention was taken. After the risks, benefits and alternatives of the procedure were thoroughly explained, Informed consent was verified, confirmed and timeout was successfully executed by the treatment team. The patient was anesthetized with topical anesthesia and the Pentax [id number] endoscope was introduced through the mouth and advanced to the second portion of the duodenum. Retroflexed views revealed no abnormalities The gastroscope was then slowly withdrawn and removed. ESOPHAGUS: There was LA Class B esophagitis noted. STOMACH: There was erythematous moderate gastritis in the gastric antrum. Severe portal hypertensive gastropathy was found in the gastric body and gastric fundus. DUODENUM: Moderate duodenal inflammation was found in the bulb and second portion of the duodenum. ADVERSE EVENTS: There were no complications. IMPRESSIONS: 1. There was LA Class B esophagitis noted 2. There was erythematous gastritis in the gastric antrum 3. Portal hypertensive gastropathy was found in the gastric body and gastric fundus 4. Duodenal inflammation was found in the bulb and second portion of the duodenum 5. Retroflexed views revealed no abnormalities RECOMMENDATIONS: 1. Anti-reflux regimen 2. Continue PPI 3. Avoid NSAIDS PATIENT CONDITION: stable DISPOSITION: Inpatient REPEAT EXAM: Return 6 months EGD [facility] ON 09-20 FOR SDH EVACUATION Medications and IVs Current Medications Sodium Chloride (NS Flush) 2 ml UNSCH PRN IV FLUSH FLUSH AFTER USING IV ACCESS ; Start 09/09/17 at 07:15; Stop 09/09/17 at 09:34; Status DC Lidocaine HCl (Lidoderm 5% Patch.12 Hr) 1 patch ONCE ONCE T-DERMAL ; Start 09/09 at 08:45; Stop 09/09/17 at 08:46; Status DC Sodium Chloride (NS Flush) 2 ml UNSCH PRN IV FLUSH FLUSH AFTER USING IV ACCESS Last administered on 09/24/17at 21:30; Start 09/09/17 at 09:15 Sodium Chloride (NS Flush) 2 ml BID IV FLUSH Last administered on 10/18/17at 08: 18; Start 09/09/17 at 21:00 Acetaminophen (Tylenol) 650 mg Q4H PRN PO TEMP > 100.4; Start 09/09/17 at 09:15 ; Stop 09/09/17 at 19:57; Status DC Ondansetron HCl (Zofran Inj) 4 mg Q6H PRN IVP NAUSEA OR VOMITING Last administered on 09/28/17at 21:48; Start 09/09/17 at 09:15 Naloxone HCl (Narcan Inj) 0.4 mg UNSCH PRN IV PUSH SEE LABEL COMMENTS; Start at 09:15 Senna/Docusate Sodium (Toña-Colace) 1 tab BID PO Last administered on at 22:34; Start 09/09/17 at 21:00 Magnesium Hydroxide (Milk Of Magnesia Liq) 30 ml Q12H PRN PO Mild constipation Last administered on 10/01/17at 02:38; Start 09/09/17 at 09:15 Sennosides (Senokot) 17.2 mg Q12H PRN PO Moderate constipation; Start 09/09/17 at 09:15 Bisacodyl (Dulcolax Supp) 10 mg DAILY PRN RECTAL SEVERE CONSITIPATION; Start at 09:15 Lactulose (Lactulose Liq) 30 ml DAILY PRN PO SEVERE CONSITIPATION; Start at 09:15; Stop 09/09/17 at 19:58; Status DC Potassium Chloride (KCl) 60 meq ONCE ONCE PO Last administered on 09/09/17at 11: 42; Start 09/09/17 at 10:00; Stop 09/09/17 at 10:01; Status DC Iohexol (Omnipaque 350 Inj) 86 ml STK-MED ONCE IVCONTRAST Last administered on 09/09/17at 09:16; Start 09/09/17 at 09:16; Stop 09/09/17 at 09:17; Status DC Flumazenil (Romazicon Inj) 0.2 mg Q1M PRN IV PUSH SEE LABEL COMMENTS; Start 09/09/17 at 20:00 Lorazepam (Ativan) 1 mg Q4H PRN PO CIWA 8 - 10; Start 09/09/17 at 20:00 Lorazepam (Ativan Inj) 1 mg Q4H PRN IV PUSH CIWA 8 - 10; Start 09/09/17 at 20:00 Lorazepam (Ativan) 2 mg Q2H PRN PO CIWA 11-14; Start 09/09/17 at 20:00 Lorazepam (Ativan Inj) 2 mg Q2H PRN IV PUSH CIWA 11-14; Start 09/09/17 at 20:00 Lorazepam (Ativan Inj) 2 mg Q1H PRN IV PUSH CIWA 15-20; Start 09/09/17 at 20:00 Lorazepam (Ativan Inj) 2 mg Q15M PRN IV PUSH CIWA > 20; Start 09/09/17 at 20:00 Lactulose (Lactulose Liq) 30 ml QID PO Last administered on 09/19/17at 20:19; Start 09/09/17 at 21:00; Stop 09/20/17 at 08:51; Status DC Spironolactone (Aldactone) 25 mg DAILY PO Last administered on 10/18/17at 08:17 ; Start 09/09/17 at 20:00 Clonidine (Catapres) 0.1 mg Q6H PRN PO SYS BP GREATER THAN 160 MMHG; Start 09/09 at 20:00; Status Cancel Pantoprazole Sodium (Protonix) 40 mg DAILY PO Last administered on 09/18/17at 09 :26; Start 09/10/17 at 09:00; Stop 09/18/17 at 14:28; Status DC Acetaminophen/ Hydrocodone Bitart (Skipwith 5-325 Mg) 1 tab Q6H PRN PO PAIN > 5 Last administered on 09/18/17at 12:31; Start 09/09/17 at 23:15; Stop 09/18/17 at 14:28; Status DC Phytonadione 10 mg/Sodium Chloride 51 ml @ 102 mls/hr ONCE ONCE IV Last administered on 09/10/17at 11:00; Start 09/10/17 at 11:00; Stop 09/10/17 at 11:29; Status DC Phytonadione (Mephyton Liq) 5 mg DAILY PO Last administered on 09/18/17at 09:25 ; Start 09/11/17 at 09:00; Stop 09/18/17 at 14:28; Status DC Clonidine (Catapres) 0.1 mg Q6H PRN PO SYS BP GREATER THAN 160 MMHG Last administered on 10/17/17at 09:11; Start 09/10/17 at 12:45 Propranolol HCl (Inderal) 20 mg Q8HR PO Last administered on 09/14/17at 14:13; Start 09/10/17 at 14:00; Stop 09/14/17 at 15:50; Status DC Potassium Chloride (KCl) 40 meq ONCE ONCE PO Last administered on 09/10/17at 16: 23; Start 09/10/17 at 14:15; Stop 09/10/17 at 14:39; Status DC Lisinopril (Prinivil) 20 mg DAILY PO Last administered on 09/17/17at 10:00; Start 09/10/17 at 14:30; Stop 09/18/17 at 14:09; Status DC Lactated Ringer's 1,000 ml @ 30 mls/hr Q24H PRN IV SEE LABEL COMMENTS Last administered on 09/12/17at 09:54; Start 09/11/17 at 23:00; Stop 09/14/17 at 22:59 ; Status DC Sodium Chloride 500 ml @ 30 mls/hr [id number] PRN IV SEE LABEL COMMENTS Last administered on 09/12/17at 00:20; Start 09/11/17 at 23:00; Stop 09/14/17 at 22:59 ; Status DC Metoprolol Tartrate (Lopressor) 25 mg ASTRONOMY DEPARTMENT CHAIR PRN PO SEE LABEL COMMENTS; Start 09/11/17 at 23:00; Stop 09/14/17 at 22:59; Status DC Povidone Iodine (Betadine 5% Antisepsis Kit) 1 applic ASTRONOMY DEPARTMENT CHAIR PRN EACH NARE SEE LABEL COMMENTS; Start 09/11/17 at 23:00; Stop 09/14/17 at 22:59; Status DC Chlorhexidine Gluconate (Chlorhexidine 2% Cloth) 3 pack ASTRONOMY DEPARTMENT CHAIR PRN TOPICAL SEE LABEL COMMENTS; Start 09/11/17 at 23:00; Stop 09/14/17 at 22:59; Status DC Insulin Human Regular (NovoLIN R INJ) See Protocol Table ... ASTRONOMY DEPARTMENT CHAIR PRN SQ SEE PROTOCOL TABLE; Start 09/11/17 at 23:00; Stop 09/14/17 at 22:59; Status DC Lidocaine HCl (Xylocaine-Mpf 1% Inj) 5 ml STK-MED ONCE OTHER ; Start 09/12/17 at 12:00; Stop 09/13/17 at 12:43; Status DC Propofol (Diprivan 200 Mg/20 ml Inj) 200 mg STK-MED ONCE IV ; Start 09/12/17 at 12:00; Stop 09/13/17 at 12:43; Status DC Propranolol HCl (Inderal) 40 mg Q8HR PO Last administered on 09/17/17at 20:57; Start 09/14/17 at 22:00; Stop 09/18/17 at 14:09; Status DC Furosemide (Lasix) 40 mg DAILY PO Last administered on 10/18/17at 08:17; Start 09/15/17 at 13:30 Amlodipine Besylate (Norvasc) 5 mg DAILY PO Last administered on 09/21/17at 08: 27; Start 09/15/17 at 13:30; Stop 09/21/17 at 12:37; Status DC Phytonadione (Vitamin K Inj) 10 mg ONCE ONCE SQ ; Start 09/18/17 at 13:30; Stop 09/18/17 at 14:45; Status DC Phytonadione (Vitamin K Inj) 10 mg DAILY SQ ; Start 09/19/17 at 09:00; Stop at 09:00; Status DC Sodium Chloride 250 ml @ 15 mls/hr ONCE ONCE IV Last administered on at 22:49; Start 09/18/17 at 13:45; Stop 09/19/17 at 06:24; Status DC Acetaminophen (Tylenol) 650 mg Q4H PRN PO SEE LABEL COMMENTS Last administered on 09/26/17at 11:51; Start 09/18/17 at 13:45; Stop 09/28/17 at 10:35; Status DC Diphenhydramine HCl (Benadryl) 25 mg Q4H PRN PO SEE LABEL COMMENTS Last administered on 10/03/17at 11:08; Start 09/18/17 at 13:45; Stop 10/03/17 at 11:08 ; Status DC Furosemide (Lasix Inj) 20 mg ONCE ONCE IV PUSH Last administered on 09/18/17at 22:49; Start 09/18/17 at 13:45; Stop 09/18/17 at 13:51; Status DC Phytonadione 10 mg/Sodium Chloride 51 ml @ 102 mls/hr DAILY IV Last administered on 09/20/17at 09:19; Start 09/19/17 at 09:00; Stop 09/21/17 at 08:59 ; Status DC Labetalol HCl (Trandate Inj) 10 mg Q1HR PRN IV PUSH SBP>140, DBP>90, HR>65 Last administered on 09/21/17at 03:30; Start 09/18/17 at 14:15 Nicardipine HCl 25 mg/Sodium Chloride 250 ml @ 50 mls/hr TITRATE PRN IV Blood pressure management; Start 09/18/17 at 14:15 Sodium Chloride 188 meq/Sodium Chloride 1,047 ml @ 30 mls/hr Q24H IV Last administered on 09/22/17at 20:00; Start 09/18/17 at 15:00; Stop 09/23/17 at 09:12 ; Status DC Levetriacetam 500 mg/Sodium Chloride 105 ml @ 420 mls/hr Q12HR IV Last administered on 09/25/17at 08:35; Start 09/18/17 at 21:00; Stop 09/25/17 at 20:59 ; Status DC Multivitamins 10 ml/Thiamine HCl 100 mg/Folic Acid 1 mg/Sodium Chloride 511.2 ml @ 125 mls/hr ONCE ONCE IV Last administered on 09/18/17at 17:58; Start at 16:00; Stop 09/18/17 at 20:05; Status DC Multivitamins 10 ml/Thiamine HCl 100 mg/Folic Acid 1 mg/Sodium Chloride 511.2 ml @ 125 mls/hr DAILY IV Last administered on 09/20/17at 14:25; Start 09/19/17 at 09:00; Stop 09/21/17 at 08:59; Status DC Pantoprazole Sodium (Protonix Inj) 40 mg DAILY IV PUSH Last administered on at 08:27; Start 09/18/17 at 14:30; Stop 09/21/17 at 15:04; Status DC Acetaminophen 100 ml @ 400 mls/hr Q8HR PRN IV fever; Start 09/18/17 at 14:30; Stop 10/01/17 at 14:15; Status DC Morphine Sulfate (Morphine Inj) 2 mg Q4H PRN IV PUSH Pain 1 through 7 Last administered on 09/27/17at 09:48; Start 09/18/17 at 14:30; Stop 09/28/17 at 10:32 ; Status DC Morphine Sulfate (Morphine Inj) 4 mg Q4HR PRN IV PUSH Pain 8-10 Last administered on 09/25/17at 02:59; Start 09/18/17 at 14:30; Stop 09/28/17 at 10:32 ; Status DC Sodium Chloride (NS Flush) 2 ml UNSCH PRN IV FLUSH FLUSH AFTER USING IV ACCESS ; Start 09/18/17 at 14:45; Stop 09/18/17 at 14:45; Status DC Sodium Chloride (NS Flush) 2 ml BID IV FLUSH ; Start 09/18/17 at 21:00; Stop at 21:00; Status DC Artificial Tears (Tears Naturale Opth Soln) 1 drop TID EACH EYE Last administered on 10/10/17at 09:42; Start 09/18/17 at 18:00 Ondansetron HCl (Zofran Odt) 4 mg Q6H PRN PO NAUSEA OR VOMITING; Start at 14:45 Albuterol/ Ipratropium (Duoneb Neb) 1 ampule Q6HR NEB INH Last administered on 09/21/17at 08:05; Start 09/18/17 at 16:00; Stop 09/22/17 at 15:59; Status DC Albuterol Sulfate (Albuterol Neb) 2.5 mg Q2HR NEB PRN INH SOB/WHEEZING Last administered on 09/28/17at 12:28; Start 09/18/17 at 14:45 Miscellaneous Information ([facility] [facility] [place] 1 [id number] Last administered on 09/18/17at 14:45; Start 09/18/17 at 14:45 Chlorhexidine Gluconate (Chlorhexidine 2% Cloth) Taper DAILY@04 TOP Last administered on 09/23/17at 04:00; Start 09/19/17 at 04:00; Stop 09/15/18 at 03:59 Chlorhexidine Gluconate (Chlorhexidine 2% Cloth) 3 pack UNSCH PRN TOP HYGIENIC CARE; Start 09/18/17 at 14:45 Phytonadione 10 mg/Sodium Chloride 51 ml @ 102 mls/hr ONCE ONCE IV Last administered on 09/18/17at 16:00; Start 09/18/17 at 16:00; Stop 09/18/17 at 16:29 ; Status DC Magnesium Sulfate/ Dextrose 100 ml @ 100 mls/hr ONCE ONCE IV Last administered on 09/18/17at 16:12; Start 09/18/17 at 16:00; Stop 09/18/17 at 16:59 ; Status DC Sodium Chloride 250 ml @ 15 mls/hr ONCE ONCE IV Last administered on at 16:20; Start 09/19/17 at 13:30; Stop 09/20/17 at 06:09; Status DC Sodium Chloride 250 ml @ 15 mls/hr ONCE ONCE IV Last administered on at 09:20; Start 09/20/17 at 07:15; Stop 09/20/17 at 23:54; Status DC Lactulose (Lactulose Liq) 30 ml DAILY PO Last administered on 10/01/17at 08:58; Start 09/20/17 at 09:00; Stop 10/01/17 at 11:16; Status DC Midazolam HCl (Versed Inj) 5 mg ONCE ONCE IV Last administered on 09/20/17at 13 :20; Start 09/20/17 at 10:00; Stop 09/20/17 at 10:01; Status DC Morphine Sulfate (Morphine Inj) 8 mg ONCE ONCE IV PUSH Last administered on at 13:20; Start 09/20/17 at 10:00; Stop 09/20/17 at 10:01; Status DC Potassium Chloride 100 ml @ 50 mls/hr Q2H PRN IV For Potassium 2.8 - 3.2 mEq/L ; Start 09/20/17 at 14:30; Stop 09/29/17 at 07:38; Status DC Potassium Chloride 100 ml @ 50 mls/hr Q2H PRN IV For Potassium 2.8 - 3.2 mEq/L ; Start 09/20/17 at 14:30; Stop 09/29/17 at 07:38; Status DC Potassium Bicarb/ Potassium Chloride (K-Lyte Cl Eff) 50 meq UNSCH PRN PO For Potassium 3.3 - 3.5 mEq/L; Start 09/20/17 at 14:30; Stop 09/29/17 at 07:38; Status DC Potassium Chloride 100 ml @ 25 mls/hr UNSCH PRN IV For Potassium 3.3 - 3.5 mEq /L; Start 09/20/17 at 14:30; Stop 09/29/17 at 07:39; Status DC Potassium Chloride 100 ml @ 50 mls/hr Q2H PRN IV For Potassium 3.3 - 3.5 mEq/ L Last administered on 09/21/17at 12:21; Start 09/20/17 at 14:30; Stop 09/29/17 at 07:39; Status DC Magnesium Sulfate 4 gm/Sodium Chloride 100 ml @ 50 mls/hr UNSCH PRN IV For Magnesium 0.9 - 1.1 mg/dL; Start 09/20/17 at 14:30; Stop 09/29/17 at 07:38; Status DC Magnesium Oxide (Mag-Ox) 800 mg UNSCH PRN PO For Magnesium 1.2 - 1.6 mg/dL; Start 09/20/17 at 14:30; Stop 09/29/17 at 07:39; Status DC Magnesium Sulfate 2 gm/Sodium Chloride 100 ml @ 50 mls/hr UNSCH PRN IV For Magnesium 1.2 - 1.6 mg/dL; Start 09/20/17 at 14:30; Stop 09/29/17 at 07:39; Status DC Potassium Phosphate (K-Phos) 2,000 mg Q4H PRN PO For Phosphorus < 2.5 mg/dL; Start 09/20/17 at 14:30; Stop 09/29/17 at 07:39; Status DC Sodium Phosphate 30 mmol/Sodium Chloride 250 ml @ 42 mls/hr UNSCH PRN IV For Phosphorus < 2.5 mg/dL Last administered on 09/22/17at 19:59; Start 09/20/17 at 14:30; Stop 09/29/17 at 07:39; Status DC Potassium Phosphate (K-Phos) 2,000 mg UNSCH PRN PO/TUBE SEE LABEL COMMENTS; Start 09/20/17 at 14:30; Stop 09/29/17 at 07:39; Status DC Potassium Phosphate 30 mmol/ Sodium Chloride 260 ml @ 42 mls/hr UNSCH PRN IV SEE LABEL COMMENTS; Start 09/20/17 at 14:30; Stop 09/29/17 at 07:39; Status DC Amlodipine Besylate (Norvasc) 10 mg DAILY PO Last administered on 10/17/17at 09: 10; Start 09/22/17 at 09:00 Hydralazine HCl (Apresoline Inj) 10 mg Q1HR PRN IV PUSH SBP>140, DBP>90; Start 09/21/17 at 12:45 Enalaprilat (Vasotec Inj) 1.25 mg Q8H PRN IV PUSH SBP>140, DBP>90 Last administered on 10/17/17at 09:11; Start 09/21/17 at 12:45 Clevidipine 50 ml @ 2 mls/hr TITRATE PRN IV Blood Pressure Management; Start at 13:00 Phytonadione (Mephyton) 5 mg ONCE ONCE PO ; Start 09/21/17 at 16:00; Stop 09/21 at 16:00; Status DC Pantoprazole Sodium (Protonix) 40 mg DAILY PO Last administered on 10/18/17at 08 :17; Start 09/22/17 at 09:00 Phytonadione (Mephyton Liq) 5 mg ONCE PO Last administered on 09/21/17at 21:00; Start 09/21/17 at 16:00; Stop 09/21/17 at 17:00; Status DC Hydralazine HCl (Apresoline) 25 mg Q8HR PO Last administered on 10/17/17at 06:12 ; Start 09/21/17 at 15:45 Potassium Chloride (KCl) 30 meq ONCE ONCE PO Last administered on 09/22/17at 16 :47; Start 09/22/17 at 16:30; Stop 09/22/17 at 16:35; Status DC Magnesium Sulfate/ Dextrose 100 ml @ 100 mls/hr ONCE ONCE IV ; Start 09/22/17 at 16:30; Stop 09/22/17 at 17:29; Status Cancel Magnesium Sulfate/ Dextrose 100 ml @ 100 mls/hr Q1H IV Last administered on at 20:31; Start 09/22/17 at 16:30; Stop 09/22/17 at 19:29; Status DC Thiamine HCl (Vitamin B1) 100 mg DAILY PO Last administered on 10/18/17at 08:17 ; Start 09/25/17 at 09:00 Multivitamins (Theragran) 1 tab DAILY PO Last administered on 10/18/17at 08:17; Start 09/25/17 at 09:00 Phytonadione (Mephyton) 2.5 mg ONCE ONCE PO ; Start 09/24/17 at 12:45; Stop at 13:23; Status DC Phytonadione (Mephyton Liq) 2.5 mg ONCE ONCE PO ; Start 09/24/17 at 14:30; Stop 09/24/17 at 14:30; Status DC Phytonadione (Mephyton Liq) 2.5 mg ONCE ONCE PO Last administered on at 14:35; Start 09/24/17 at 14:30; Stop 09/24/17 at 14:31; Status DC Zolpidem Tartrate (Ambien) 5 mg ONCE ONCE PO Last administered on 09/26/17at 22 :34; Start 09/26/17 at 22:30; Stop 09/26/17 at 22:31; Status DC Acetaminophen (Tylenol) 500 mg Q4H PRN PO PAIN 1-4 ON SCALE;FEVER Last administered on 10/18/17at 10:26; Start 09/28/17 at 10:45 Melatonin (Melatonin) 5 mg ONCE ONCE PO Last administered on 09/29/17at 23:17; Start 09/29/17 at 22:00; Stop 09/29/17 at 22:01; Status DC Melatonin (Melatonin) 5 mg HS PRN PO INSOMNIA Last administered on 10/14/17at 20 :16; Start 09/30/17 at 21:00; Stop 10/15/17 at 13:38; Status DC Oxycodone HCl (Roxicodone) 5 mg Q6H PRN PO PAIN GREATER THAN 5 Last administered on 10/16/17at 19:56; Start 10/01/17 at 11:15 Lactulose (Lactulose Liq) 30 ml TID PO Last administered on 10/18/17at 08:17; Start 10/01/17 at 13:00 Ibuprofen (Motrin) 400 mg Q6H PRN PO fever>100.4 Last administered on 10/04/17at 12:39; Start 10/04/17 at 12:00 Vancomycin HCl 1100 mg/Sodium Chloride 261 ml @ 250 mls/hr ONCE ONCE IV ; Start 10/04/17 at 13:00; Stop 10/04/17 at 13:15; Status DC Piperacillin Sod/ Tazobactam Sod 100 ml @ 200 mls/hr Q6H IV ; Start 10/04/17 at 14:00; Status Cancel Vancomycin HCl 1000 mg/Sodium Chloride 250 ml @ 250 mls/hr ONCE ONCE IV Last administered on 10/04/17at 14:18; Start 10/04/17 at 14:00; Stop 10/04/17 at 14:59; Status DC Metronidazole (Flagyl) 500 mg Q8H PO Last administered on 10/07/17at 05:51; Start 10/04/17 at 15:00; Stop 10/07/17 at 13:42; Status DC Sodium Chloride 1,000 ml @ 84 mls/hr [id number] IV Last administered on 10/04/17at 16:46; Start 10/04/17 at 15:15; Stop 10/05/17 at 03:09; Status DC Piperacillin Sod/ Tazobactam Sod 100 ml @ 200 mls/hr Q6H IV Last administered on 10/07/17at 10:00; Start 10/04/17 at 17:00; Stop 10/07/17 at 13:42; Status DC Ceftriaxone Sodium 2000 mg/ Sodium Chloride 100 ml @ 200 mls/hr Q24H IV Last administered on 10/13/17at 12:49; Start 10/07/17 at 14:00; Stop 10/14/17 at 11:46 ; Status DC Potassium Chloride (KCl) 20 meq ONCE ONCE PO Last administered on 10/09/17at 17: 21; Start 10/09/17 at 15:30; Stop 10/09/17 at 15:31; Status DC Diatrizoate Meglum/ Diatrizoate Sod ( Gastroview Liq) 18 ml ONCE ONCE PO Last administered on 10/10/17at 12:47; Start 10/10/17 at 12:30; Stop 10/10/17 at 12: 31; Status DC Potassium Chloride (KCl) 40 meq ONCE ONCE PO Last administered on 10/12/17at 17: 08; Start 10/12/17 at 15:15; Stop 10/12/17 at 15:16; Status DC Magnesium Sulfate/ Dextrose 100 ml @ 100 mls/hr Q1H IV Last administered on 02/20at 16:42; Start 10/13/17 at 15:15; Stop 10/13/17 at 17:14; Status DC Levofloxacin (Levaquin) 750 mg DAILY PO Last administered on 10/18/17at 08:17; Start 10/14/17 at 12:00; Stop 11/01/17 at 11:59 Trazodone HCl (Desyrel) 50 mg HS PRN PO insomnia Last administered on at 21:13; Start 10/15/17 at 21:00 A/P Problem List: (1) Liver cirrhosis ICD Code: K74.60 - Unspecified cirrhosis of liver (2) Spleen hematoma ICD Code: S36.029A - Unspecified contusion of spleen, initial encounter Status: Acute (3) Hyperbilirubinemia ICD Code: E80.6 - Other disorders of bilirubin metabolism Status: Acute (4) Splenomegaly ICD Code: R16.1 - Splenomegaly, not elsewhere classified Status: Chronic (5) Ascites ICD Code: R18.8 - Other ascites Status: Chronic (6) Hypokalemia ICD Code: E87.6 - Hypokalemia Status: Resolved (7) Macrocytic anemia ICD Code: D53.9 - Nutritional anemia, unspecified Status: Chronic (8) HTN (hypertension) ICD Code: I10 - Essential (primary) hypertension Status: Chronic (9) Fall ICD Code: W19.XXXA - Unspecified fall, initial encounter Status: Acute (10) Left shoulder pain ICD Code: M25.512 - Pain in left shoulder (11) Edema of left lower extremity ICD Code: R60.0 - Localized edema (12) Hyperammonemia ICD Code: E72.20 - Disorder of urea cycle metabolism, unspecified (13) Coagulopathy ICD Code: D68.9 - Coagulation defect, unspecified Status: Acute (14) Diarrhea ICD Code: R19.7 - Diarrhea, unspecified Assessment and Plan Acute/subacute/chronic right subdural hematoma -3.5 cm thickness with compression of the sulci/gyri with the right to left subfalcine shift 4.7 mm/ Acute encephalopathy CT brain 09/18 revealed acute, subacute and chronic components to right subdural hematoma. 3.5 cm. Compression of the sulci and gyri. Right frontal right-to- left subfalcine shift approximately [address] brain 09/23 - interval placement of a right frontal subdural drain. There has been replacement of some of the frontal subdural fluid with air. Otherwise little change in the configuration with persistent grossly stable subfalcine shift in lateral ventricular compression with effacement of hemispheric cortical sulci. Status post right bur hole by Dr. Carranza. Drain have since been removed. Patient was placed on levetiracetam 500 mg IV twice daily 7 days. EEG with mild to moderate encephalopathic changes; No epileptic activity. - Blood pressure control keep systolic blood pressure less than 140. - Multivitamin, thiamine and folate daily 3 days has been completed. - Seizure precautions. - Pain medications as needed. - daughter is trying to arrange SNF placement in [place], but it may take a while to get approved. Case management assistance appreciated. E. coli bacteremia ID consult appreciated. Repeat CT abdomen unremarkable. - continue ceftriaxone per ID. May change to PO upon discharge. - Follow repeat blood cultures. NGTD. Hepatitis C genotype 1A viral load positive/ LA class B esophagitis/ Portal hypertension/ Abdominal ascites/ Elevated transaminases CT abdomen/pelvis 09/09 revealed abdominal ascites, esophageal/gastric varices. Splenomegaly. Shrunken liver. Small splenic hematoma. EGD 09/12 revealed LA class B esophagitis, gastric erythema of the antrum gastric and duodenal bulb/ second portion, portal hypertension/gastropathy. - Patient is on pantoprazole 40 mg po daily/home medications pantoprazole. - Diet as tolerated. - Outpatient evaluation for positive hepatitis C genotype 1A for treatment. - Recheck liver function tests as clinically indicated. Stable. - Continue lactulose 3 times daily. - Added Ensure 3 times daily. - Continue diuretics. Depression/ Insomnia Seems situational, s/t above. Neuropsychology consult appreciated. - low dose Ativan as needed. - consider Celexa per neuropsych. - trazodone added for insomnia. D/c melatonin. Tobaccoism Chronic. - Nasal cannula to maintain saturations greater than equal to 92%. - Incentive spirometry while awake. - Tobacco cessation self-education booklet will be provided. Acute kidney injury Avoid nephrotoxic medications. KAMILAH inhibitor has been held. Medullary nephrocalcinosis noted on CT abdomen. - continue Aldactone and Lasix as creatinine is returning to baseline. - Accurate I's and O - follow up with nephrology. Macrocytic anemia/ Thrombocytopenia/ Coagulopathic state secondary to underlying liver disease S/P Vitamin K. Received 4 pack platelets since admission along with 4 FFP, 2 liquid plasma, 2 cryoprecipitate. - follow CBC Chronic low back pain ARTEMIO 1:320 nucleolar positive with positive double-stranded DNA. Possibly also secondary to underlying liver disease/hepatitis. - Will need outpatient rheumatology workup - PT evaluate and treat. Hypokalemia Potassium level 3.5. - replete and monitor. Prophylax -GI -pantoprazole -DVT -SCD/holding pharmacological prophylaxis in light of acute subdural hematoma Discharge Planning PENDING SAFE DISCHARGE Problem Qualifiers (1) Liver cirrhosis: (2) Spleen hematoma: Qualified Codes: S36.029A - Unspecified contusion of spleen, initial encounter (3) Ascites: Qualified Codes: R18.8 - Other ascites (4) HTN (hypertension): Qualified Codes: I10 - Essential (primary) hypertension (5) Fall: Qualified Codes: W19.XXXA - Unspecified fall, initial encounter (6) Left shoulder pain: Qualified Codes: M25.512 - Pain in left shoulder (7) Diarrhea: Qualified Codes: R19.7 - Diarrhea, unspecified Gilbert Hayes DO Oct 18, 2017 12:46
[2017-10-18 16:36] VITALS: BP 112/57; PULSE 67; RESP 16; TEMP 98; O2SAT 99
[2017-10-18 20:00] VITALS: BP 114/55; PULSE 93; RESP 18; TEMP 97.9; O2SAT 97
[2017-10-18] MEDS: traZODone HCL 50 MG TAB PO PRN (20:17)
[2017-10-19] VITALS: BP 121/59; PULSE 89; RESP 18; TEMP 98.1; O2SAT 96
[2017-10-19 04:00] VITALS: BP 111/56; PULSE 88; RESP 18; TEMP 98.5; O2SAT 96
[2017-10-19] MEDS: CHLORHEXIDINE GLUCONATE 2 % 1 PACK (2 CLOTHS) TOP SCH ×2 (04:00→22:28)
[2017-10-19] MEDS: hydrALAZINE HCL 25 MG TAB PO SCH ×3 (06:00→22:28)
[2017-10-19 08:00] VITALS: BP 111/55; PULSE 90; RESP 16; TEMP 98.4; O2SAT 96
[2017-10-19] MEDS: ARTIFICIAL TEARS OPTH SOLN 15 ML BTL EACH EYE SCH ×3 (09:00→18:00)
[2017-10-19] MEDS: DOCUSATE SODIUM 50 MG/SENNA 8.6 MG TAB PO SCH ×2 (09:00→21:00)
[2017-10-19] MEDS: LACTULOSE SYRUP 20 GM/30 ML CUP PO SCH ×3 (09:00→18:00)
[2017-10-19] MEDS: THIAMINE HCL 100 MG TAB PO SCH (09:12)
[2017-10-19] MEDS: MULTIVITAMIN TAB PO SCH (09:13)
[2017-10-19] MEDS: LEVOFLOXACIN 750 MG TAB PO SCH (09:13)
[2017-10-19] MEDS: FUROSEMIDE 40 MG TAB PO SCH (09:13)
[2017-10-19] MEDS: PANTOPRAZOLE SOD 40 MG DELAYED RELEASE TAB PO SCH (09:13)
[2017-10-19] MEDS: SPIRONOLACTONE 25 MG TAB PO SCH (09:14)
[2017-10-19] MEDS: SODIUM CHLORIDE 0.9% FLUSH 10 ML FLUSH IV FLUSH SCH ×2 (09:14→22:29)
--- NOTE | 2017-10-19 10:53 | HHI.PR ---
Subjective Remarks 6-12 The patient said that he spoke with the psychologist earlier. He had no acute complaints. He said he wants to live in a motel in [place]. Discussed with nursing and case management. 6-13 NO NEW COMPLAINTS STATES HE SHOWERED TODAY [facility] RN AND PT AND CM [facility] YESTERDAY 6-14 AWAIT SAFE PLACEMENT NEEDS SNF AT [place] VS [facility] RN AND PT AND CM AWAIT SAFE PLACE FOR DC 6-15 STILL AWAIT SAFE DC [facility] RN AND PT 6-16 NO NEW COMPLAINTS AWAIT SAFE DC [facility] RN AND PT AND CM Objective Vitals Vital Signs Date Time Temp Pulse Resp B/P (MAP) Pulse Ox O2 Delivery O2 Flow Rate FiO2 10/19/17 08:00 98.4 90 16 111/55 (73) 96 10/19/17 04:00 98.5 88 18 111/56 (74) 96 10/19/17 00:00 98.1 89 18 121/59 (79) 96 10/18/17 20:00 97.9 93 18 114/55 (74) 97 10/18/17 16:36 98.0 67 16 112/57 (75) 99 10/18/17 12:16 98.1 64 16 115/61 (79) 97 10/18/17 11:08 14 I/O 10/18/17 10/18/17 10/18/17 10/19/17 10/19/17 10/19/17 07:00 15:00 23:00 07:00 15:00 23:00 Output Total 300 ml 200 ml 100 ml 200 ml Balance -300 ml -200 ml -100 ml -200 ml Output Urine Total 300 ml 200 ml 100 ml 200 ml # Voids 1 # Bowel Movements 1 1 Result Diagram: 10/17/17 0520 10/17/17 0520 Other Results Laboratory Tests Test 10/17/17 05:20 White Blood Count 4.7 TH/MM3 Red Blood Count 2.55 MIL/MM3 Hemoglobin 8.8 GM/DL Hematocrit 25.6 % Mean Corpuscular Volume 100.2 FL Mean Corpuscular Hemoglobin 34.6 PG Mean Corpuscular Hemoglobin Concent 34.5 % Red Cell Distribution Width 15.5 % Platelet Count 57 TH/MM3 Mean Platelet Volume 8.7 FL Neutrophils (%) (Auto) 69.2 % Lymphocytes (%) (Auto) 15.9 % Monocytes (%) (Auto) 12.9 % Eosinophils (%) (Auto) 1.2 % Basophils (%) (Auto) 0.8 % Neutrophils # (Auto) 3.2 TH/MM3 Lymphocytes # (Auto) 0.7 TH/MM3 Monocytes # (Auto) 0.6 TH/MM3 Eosinophils # (Auto) 0.1 TH/MM3 Basophils # (Auto) 0.0 TH/MM3 CBC Comment AUTO DIFF Differential Comment AUTO DIFF CONFIRMED Platelet Estimate LOW Platelet Morphology Comment NORMAL Blood Urea Nitrogen 17 MG/DL Creatinine 1.27 MG/DL Random Glucose 88 MG/DL Total Protein 7.0 GM/DL Albumin 1.9 GM/DL Calcium Level 8.3 MG/DL Phosphorus Level 3.5 MG/DL Magnesium Level 1.6 MG/DL Alkaline Phosphatase 86 U/L Aspartate Amino Transf (AST/SGOT) 49 U/L Alanine Aminotransferase (ALT/SGPT) 22 U/L Total Bilirubin 3.8 MG/DL Sodium Level 135 MEQ/L Potassium Level 4.1 MEQ/L Chloride Level 103 MEQ/L Carbon Dioxide Level 20.2 MEQ/L Anion Gap 12 MEQ/L Estimat Glomerular Filtration Rate 57 ML/MIN Hemoglobin A1c 3.3 % Free Thyroxine 1.08 NG/DL Thyroid Stimulating Hormone 3rd Gen 2.700 uIU/ML Imaging Last Impressions Head CT 10/16/17 0000 Signed Impressions: CONCLUSION: 1. Persistent right frontoparietal subdural collection which is decreased in o verall size compared to 09/23/2017 but still prominent in width in the frontal r egion measuring 2.1 cm in greatest width. The majority of the collection is com posed of subacute blood although there are small areas of hyperdense blood prod ucts suggesting some acute hemorrhage. There is 3 mm of subfalcine herniation t o the left which is slightly improved compared to the previous examination. 2. Stable tiny acute left frontal subdural measuring 2 mm in greatest width. Abdomen/Pelvis CT 10/10/17 0000 Signed Impressions: CONCLUSION: 1. Cirrhotic liver appearance with prominent stigmata of portal hypertension. 2. Nonspecific lymphadenopathy. 3. Mild ascites. 4. Gallstones. 5. Medullary nephrocalcinosis. 6. Small effusions and mild lung base atelectasis. Renal Ultrasound 10/08/17 0000 Signed Impressions: CONCLUSION: 1. There are no findings to indicate obstruction. Kidneys have a normal appear ance. 2. Small volume of ascites in this patient with cirrhosis. Abdomen Ultrasound 10/06/17 Signed Impressions: CONCLUSION: 1. Small amount of ascites along the edge of the liver. 2. Nodularity of the hepatic contour suggesting cirrhosis. Liver Ultrasound 10/04/17 Signed Impressions: CONCLUSION: 1. No specific abnormality is identified to explain the patient's fever. 2. However, there are persistent findings indicating cirrhosis with findings o f portal hypertension including splenomegaly, recanalized paraumbilical vein, a nd ascites. 3. There is hepatofugal flow in the main portal vein. Chest X-Ray 10/04/17 Signed Impressions: CONCLUSION: No acute cardiopulmonary process. Shoulder X-Ray 09/09/17 Signed Impressions: Service Date/Time: Saturday, September 09, 2017 21:01 - CONCLUSION: 1. No acute bony abnormality. Vito Minor MD Lower Extremity Ultrasound 09/09/17 Signed Impressions: Service Date/Time: Saturday, September 09, 2017 21:41 - CONCLUSION: Normal examination. Henok Young MD Elbow X-Ray 09/09/17 Signed Impressions: Service Date/Time: Saturday, September 09, 2017 20:53 - CONCLUSION: 1. No acute bony abnormalities. Vito Minor MD Objective Remarks GENERAL: Awake and alert and oriented 3 talkative and cooperative SKIN: Warm and dry. Multiple tattoos HEAD: Atraumatic. Normocephalic. EYES: Pupils equal and round. No scleral icterus. No injection or drainage. ENT: No nasal bleeding or discharge. Mucous membranes pink and moist. NECK: Trachea midline. No JVD. CARDIOVASCULAR: Regular rate and rhythm. S1-S2 no S3 or S4 RESPIRATORY: No accessory muscle use. Clear to auscultation. Breath sounds equal bilaterally. GASTROINTESTINAL: Abdomen soft, non-tender, nondistended. Hepatic and splenic margins not palpable. MUSCULOSKELETAL: Extremities without clubbing, cyanosis, or edema. No obvious deformities. NEUROLOGICAL: Awake and alert. No obvious cranial nerve deficits. Motor grossly within normal limits. Five out of 5 muscle strength in the arms and legs on the right. Normal speech. Left upper extremity weakness has improved PSYCHIATRIC: Appropriate mood and affect; insight and judgment normal. Procedures EGD PROCEDURE REPORT EXAM DATE: 09/12/2017 PATIENT NAME: Malik Valentine MR #: [id number] BIRTHDATE: 1955 ATTENDING: Med Dominguez MD ORDER #: [id number] BRAKE TESTER: Julienne Castro RN STATUS: inpatient INDICATIONS: The patient is a 62 yr old male here for an EGD due to Cirrhosis PROCEDURE PERFORMED: EGD, diagnostic MEDICATIONS: None and Per Anesthesia. TOPICAL ANESTHETIC: CONSENT: The patient understands the risks and benefits of the procedure and understands that these risks include, but are not limited to: sedation, allergic reaction, infection, perforation and/or bleeding. Alternative means of evaluation and treatment include, among others: physical exam, x-rays, and/or surgical intervention. The patient elects to proceed with this endoscopic procedure. medical equipment was checked for proper function. Hand hygiene and appropriate measures for infection prevention was taken. After the risks, benefits and alternatives of the procedure were thoroughly explained, Informed consent was verified, confirmed and timeout was successfully executed by the treatment team. The patient was anesthetized with topical anesthesia and the Pentax [id number] endoscope was introduced through the mouth and advanced to the second portion of the duodenum. Retroflexed views revealed no abnormalities The gastroscope was then slowly withdrawn and removed. ESOPHAGUS: There was LA Class B esophagitis noted. STOMACH: There was erythematous moderate gastritis in the gastric antrum. Severe portal hypertensive gastropathy was found in the gastric body and gastric fundus. DUODENUM: Moderate duodenal inflammation was found in the bulb and second portion of the duodenum. ADVERSE EVENTS: There were no complications. IMPRESSIONS: 1. There was LA Class B esophagitis noted 2. There was erythematous gastritis in the gastric antrum 3. Portal hypertensive gastropathy was found in the gastric body and gastric fundus 4. Duodenal inflammation was found in the bulb and second portion of the duodenum 5. Retroflexed views revealed no abnormalities RECOMMENDATIONS: 1. Anti-reflux regimen 2. Continue PPI 3. Avoid NSAIDS PATIENT CONDITION: stable DISPOSITION: Inpatient REPEAT EXAM: Return 6 months EGD [facility] ON 09-20 FOR SDH EVACUATION Medications and IVs Current Medications Sodium Chloride (NS Flush) 2 ml UNSCH PRN IV FLUSH FLUSH AFTER USING IV ACCESS ; Start 09/09/17 at 07:15; Stop 09/09/17 at 09:34; Status DC Lidocaine HCl (Lidoderm 5% Patch.12 Hr) 1 patch ONCE ONCE T-DERMAL ; Start 09/09 at 08:45; Stop 09/09/17 at 08:46; Status DC Sodium Chloride (NS Flush) 2 ml UNSCH PRN IV FLUSH FLUSH AFTER USING IV ACCESS Last administered on 09/24/17at 21:30; Start 09/09/17 at 09:15 Sodium Chloride (NS Flush) 2 ml BID IV FLUSH Last administered on 10/19/17at 09: 14; Start 09/09/17 at 21:00 Acetaminophen (Tylenol) 650 mg Q4H PRN PO TEMP > 100.4; Start 09/09/17 at 09:15 ; Stop 09/09/17 at 19:57; Status DC Ondansetron HCl (Zofran Inj) 4 mg Q6H PRN IVP NAUSEA OR VOMITING Last administered on 09/28/17at 21:48; Start 09/09/17 at 09:15 Naloxone HCl (Narcan Inj) 0.4 mg UNSCH PRN IV PUSH SEE LABEL COMMENTS; Start at 09:15 Senna/Docusate Sodium (Toña-Colace) 1 tab BID PO Last administered on at 22:34; Start 09/09/17 at 21:00 Magnesium Hydroxide (Milk Of Magnesia Liq) 30 ml Q12H PRN PO Mild constipation Last administered on 10/01/17at 02:38; Start 09/09/17 at 09:15 Sennosides (Senokot) 17.2 mg Q12H PRN PO Moderate constipation; Start 09/09/17 at 09:15 Bisacodyl (Dulcolax Supp) 10 mg DAILY PRN RECTAL SEVERE CONSITIPATION; Start at 09:15 Lactulose (Lactulose Liq) 30 ml DAILY PRN PO SEVERE CONSITIPATION; Start at 09:15; Stop 09/09/17 at 19:58; Status DC Potassium Chloride (KCl) 60 meq ONCE ONCE PO Last administered on 09/09/17at 11: 42; Start 09/09/17 at 10:00; Stop 09/09/17 at 10:01; Status DC Iohexol (Omnipaque 350 Inj) 86 ml STK-MED ONCE IVCONTRAST Last administered on 09/09/17at 09:16; Start 09/09/17 at 09:16; Stop 09/09/17 at 09:17; Status DC Flumazenil (Romazicon Inj) 0.2 mg Q1M PRN IV PUSH SEE LABEL COMMENTS; Start 09/09/17 at 20:00 Lorazepam (Ativan) 1 mg Q4H PRN PO CIWA 8 - 10; Start 09/09/17 at 20:00 Lorazepam (Ativan Inj) 1 mg Q4H PRN IV PUSH CIWA 8 - 10; Start 09/09/17 at 20:00 Lorazepam (Ativan) 2 mg Q2H PRN PO CIWA 11-14; Start 09/09/17 at 20:00 Lorazepam (Ativan Inj) 2 mg Q2H PRN IV PUSH CIWA 11-14; Start 09/09/17 at 20:00 Lorazepam (Ativan Inj) 2 mg Q1H PRN IV PUSH CIWA 15-20; Start 09/09/17 at 20:00 Lorazepam (Ativan Inj) 2 mg Q15M PRN IV PUSH CIWA > 20; Start 09/09/17 at 20:00 Lactulose (Lactulose Liq) 30 ml QID PO Last administered on 09/19/17at 20:19; Start 09/09/17 at 21:00; Stop 09/20/17 at 08:51; Status DC Spironolactone (Aldactone) 25 mg DAILY PO Last administered on 10/19/17at 09:14 ; Start 09/09/17 at 20:00 Clonidine (Catapres) 0.1 mg Q6H PRN PO SYS BP GREATER THAN 160 MMHG; Start 09/09 at 20:00; Status Cancel Pantoprazole Sodium (Protonix) 40 mg DAILY PO Last administered on 09/18/17at 09 :26; Start 09/10/17 at 09:00; Stop 09/18/17 at 14:28; Status DC Acetaminophen/ Hydrocodone Bitart ([place] 5-325 Mg) 1 tab Q6H PRN PO PAIN > 5 Last administered on 09/18/17at 12:31; Start 09/09/17 at 23:15; Stop 09/18/17 at 14:28; Status DC Phytonadione 10 mg/Sodium Chloride 51 ml @ 102 mls/hr ONCE ONCE IV Last administered on 09/10/17at 11:00; Start 09/10/17 at 11:00; Stop 09/10/17 at 11:29; Status DC Phytonadione (Mephyton Liq) 5 mg DAILY PO Last administered on 09/18/17at 09:25 ; Start 09/11/17 at 09:00; Stop 09/18/17 at 14:28; Status DC Clonidine (Catapres) 0.1 mg Q6H PRN PO SYS BP GREATER THAN 160 MMHG Last administered on 10/17/17at 09:11; Start 09/10/17 at 12:45 Propranolol HCl (Inderal) 20 mg Q8HR PO Last administered on 09/14/17at 14:13; Start 09/10/17 at 14:00; Stop 09/14/17 at 15:50; Status DC Potassium Chloride (KCl) 40 meq ONCE ONCE PO Last administered on 09/10/17at 16: 23; Start 09/10/17 at 14:15; Stop 09/10/17 at 14:39; Status DC Lisinopril (Prinivil) 20 mg DAILY PO Last administered on 09/17/17at 10:00; Start 09/10/17 at 14:30; Stop 09/18/17 at 14:09; Status DC Lactated Ringer's 1,000 ml @ 30 mls/hr Q24H PRN IV SEE LABEL COMMENTS Last administered on 09/12/17at 09:54; Start 09/11/17 at 23:00; Stop 09/14/17 at 22:59 ; Status DC Sodium Chloride 500 ml @ 30 mls/hr [id number] PRN IV SEE LABEL COMMENTS Last administered on 09/12/17at 00:20; Start 09/11/17 at 23:00; Stop 09/14/17 at 22:59 ; Status DC Metoprolol Tartrate (Lopressor) 25 mg [employer]ING [employer] PRN PO SEE LABEL COMMENTS; Start 09/11/17 at 23:00; Stop 09/14/17 at 22:59; Status DC Povidone Iodine (Betadine 5% Antisepsis Kit) 1 applic [employer]URING OPER[employer] PRN EACH NARE SEE LABEL COMMENTS; Start 09/11/17 at 23:00; Stop 09/14/17 at 22:59; Status DC Chlorhexidine Gluconate (Chlorhexidine 2% Cloth) 3 pack [employer]URING OPER[employer] PRN TOPICAL SEE LABEL COMMENTS; Start 09/11/17 at 23:00; Stop 09/14/17 at 22:59; Status DC Insulin Human Regular (NovoLIN R INJ) See Protocol Table ... [employer]URING OPERATOR PRN SQ SEE PROTOCOL TABLE; Start 09/11/17 at 23:00; Stop 09/14/17 at 22:59; Status DC Lidocaine HCl (Xylocaine-Mpf 1% Inj) 5 ml STK-MED ONCE OTHER ; Start 09/12/17 at 12:00; Stop 09/13/17 at 12:43; Status DC Propofol (Diprivan 200 Mg/20 ml Inj) 200 mg STK-MED ONCE IV ; Start 09/12/17 at 12:00; Stop 09/13/17 at 12:43; Status DC Propranolol HCl (Inderal) 40 mg Q8HR PO Last administered on 09/17/17at 20:57; Start 09/14/17 at 22:00; Stop 09/18/17 at 14:09; Status DC Furosemide (Lasix) 40 mg DAILY PO Last administered on 10/19/17at 09:13; Start 09/15/17 at 13:30 Amlodipine Besylate (Norvasc) 5 mg DAILY PO Last administered on 09/21/17at 08: 27; Start 09/15/17 at 13:30; Stop 09/21/17 at 12:37; Status DC Phytonadione (Vitamin K Inj) 10 mg ONCE ONCE SQ ; Start 09/18/17 at 13:30; Stop 09/18/17 at 14:45; Status DC Phytonadione (Vitamin K Inj) 10 mg DAILY SQ ; Start 09/19/17 at 09:00; Stop at 09:00; Status DC Sodium Chloride 250 ml @ 15 mls/hr ONCE ONCE IV Last administered on at 22:49; Start 09/18/17 at 13:45; Stop 09/19/17 at 06:24; Status DC Acetaminophen (Tylenol) 650 mg Q4H PRN PO SEE LABEL COMMENTS Last administered on 09/26/17at 11:51; Start 09/18/17 at 13:45; Stop 09/28/17 at 10:35; Status DC Diphenhydramine HCl (Benadryl) 25 mg Q4H PRN PO SEE LABEL COMMENTS Last administered on 10/03/17at 11:08; Start 09/18/17 at 13:45; Stop 10/03/17 at 11:08 ; Status DC Furosemide (Lasix Inj) 20 mg ONCE ONCE IV PUSH Last administered on 09/18/17at 22:49; Start 09/18/17 at 13:45; Stop 09/18/17 at 13:51; Status DC Phytonadione 10 mg/Sodium Chloride 51 ml @ 102 mls/hr DAILY IV Last administered on 09/20/17at 09:19; Start 09/19/17 at 09:00; Stop 09/21/17 at 08:59 ; Status DC Labetalol HCl (Trandate Inj) 10 mg Q1HR PRN IV PUSH SBP>140, DBP>90, HR>65 Last administered on 09/21/17at 03:30; Start 09/18/17 at 14:15 Nicardipine HCl 25 mg/Sodium Chloride 250 ml @ 50 mls/hr TITRATE PRN IV Blood pressure management; Start 09/18/17 at 14:15 Sodium Chloride 188 meq/Sodium Chloride 1,047 ml @ 30 mls/hr Q24H IV Last administered on 09/22/17at 20:00; Start 09/18/17 at 15:00; Stop 09/23/17 at 09:12 ; Status DC Levetriacetam 500 mg/Sodium Chloride 105 ml @ 420 mls/hr Q12HR IV Last administered on 09/25/17at 08:35; Start 09/18/17 at 21:00; Stop 09/25/17 at 20:59 ; Status DC Multivitamins 10 ml/Thiamine HCl 100 mg/Folic Acid 1 mg/Sodium Chloride 511.2 ml @ 125 mls/hr ONCE ONCE IV Last administered on 09/18/17at 17:58; Start at 16:00; Stop 09/18/17 at 20:05; Status DC Multivitamins 10 ml/Thiamine HCl 100 mg/Folic Acid 1 mg/Sodium Chloride 511.2 ml @ 125 mls/hr DAILY IV Last administered on 09/20/17at 14:25; Start 09/19/17 at 09:00; Stop 09/21/17 at 08:59; Status DC Pantoprazole Sodium (Protonix Inj) 40 mg DAILY IV PUSH Last administered on at 08:27; Start 09/18/17 at 14:30; Stop 09/21/17 at 15:04; Status DC Acetaminophen 100 ml @ 400 mls/hr Q8HR PRN IV fever; Start 09/18/17 at 14:30; Stop 10/01/17 at 14:15; Status DC Morphine Sulfate (Morphine Inj) 2 mg Q4H PRN IV PUSH Pain 1 through 7 Last administered on 09/27/17at 09:48; Start 09/18/17 at 14:30; Stop 09/28/17 at 10:32 ; Status DC Morphine Sulfate (Morphine Inj) 4 mg Q4HR PRN IV PUSH Pain 8-10 Last administered on 09/25/17at 02:59; Start 09/18/17 at 14:30; Stop 09/28/17 at 10:32 ; Status DC Sodium Chloride (NS Flush) 2 ml UNSCH PRN IV FLUSH FLUSH AFTER USING IV ACCESS ; Start 09/18/17 at 14:45; Stop 09/18/17 at 14:45; Status DC Sodium Chloride (NS Flush) 2 ml BID IV FLUSH ; Start 09/18/17 at 21:00; Stop at 21:00; Status DC Artificial Tears (Tears Naturale Opth Soln) 1 drop TID EACH EYE Last administered on 10/19/17at 09:00; Start 09/18/17 at 18:00 Ondansetron HCl (Zofran Odt) 4 mg Q6H PRN PO NAUSEA OR VOMITING; Start at 14:45 Albuterol/ Ipratropium (Duoneb Neb) 1 ampule Q6HR NEB INH Last administered on 09/21/17at 08:05; Start 09/18/17 at 16:00; Stop 09/22/17 at 15:59; Status DC Albuterol Sulfate (Albuterol Neb) 2.5 mg Q2HR NEB PRN INH SOB/WHEEZING Last administered on 09/28/17at 12:28; Start 09/18/17 at 14:45 Miscellaneous Information ([facility] Nursing Information) 1 [id number] Last administered on 09/18/17at 14:45; Start 09/18/17 at 14:45 Chlorhexidine Gluconate (Chlorhexidine 2% Cloth) Taper DAILY@04 TOP Last administered on 09/23/17at 04:00; Start 09/19/17 at 04:00; Stop 09/15/18 at 03:59 Chlorhexidine Gluconate (Chlorhexidine 2% Cloth) 3 pack UNSCH PRN TOP HYGIENIC CARE; Start 09/18/17 at 14:45 Phytonadione 10 mg/Sodium Chloride 51 ml @ 102 mls/hr ONCE ONCE IV Last administered on 09/18/17at 16:00; Start 09/18/17 at 16:00; Stop 09/18/17 at 16:29 ; Status DC Magnesium Sulfate/ Dextrose 100 ml @ 100 mls/hr ONCE ONCE IV Last administered on 09/18/17at 16:12; Start 09/18/17 at 16:00; Stop 09/18/17 at 16:59 ; Status DC Sodium Chloride 250 ml @ 15 mls/hr ONCE ONCE IV Last administered on at 16:20; Start 09/19/17 at 13:30; Stop 09/20/17 at 06:09; Status DC Sodium Chloride 250 ml @ 15 mls/hr ONCE ONCE IV Last administered on at 09:20; Start 09/20/17 at 07:15; Stop 09/20/17 at 23:54; Status DC Lactulose (Lactulose Liq) 30 ml DAILY PO Last administered on 10/01/17at 08:58; Start 09/20/17 at 09:00; Stop 10/01/17 at 11:16; Status DC Midazolam HCl (Versed Inj) 5 mg ONCE ONCE IV Last administered on 09/20/17at 13 :20; Start 09/20/17 at 10:00; Stop 09/20/17 at 10:01; Status DC Morphine Sulfate (Morphine Inj) 8 mg ONCE ONCE IV PUSH Last administered on at 13:20; Start 09/20/17 at 10:00; Stop 09/20/17 at 10:01; Status DC Potassium Chloride 100 ml @ 50 mls/hr Q2H PRN IV For Potassium 2.8 - 3.2 mEq/L ; Start 09/20/17 at 14:30; Stop 09/29/17 at 07:38; Status DC Potassium Chloride 100 ml @ 50 mls/hr Q2H PRN IV For Potassium 2.8 - 3.2 mEq/L ; Start 09/20/17 at 14:30; Stop 09/29/17 at 07:38; Status DC Potassium Bicarb/ Potassium Chloride (K-Lyte Cl Eff) 50 meq UNSCH PRN PO For Potassium 3.3 - 3.5 mEq/L; Start 09/20/17 at 14:30; Stop 09/29/17 at 07:38; Status DC Potassium Chloride 100 ml @ 25 mls/hr UNSCH PRN IV For Potassium 3.3 - 3.5 mEq /L; Start 09/20/17 at 14:30; Stop 09/29/17 at 07:39; Status DC Potassium Chloride 100 ml @ 50 mls/hr Q2H PRN IV For Potassium 3.3 - 3.5 mEq/ L Last administered on 09/21/17at 12:21; Start 09/20/17 at 14:30; Stop 09/29/17 at 07:39; Status DC Magnesium Sulfate 4 gm/Sodium Chloride 100 ml @ 50 mls/hr UNSCH PRN IV For Magnesium 0.9 - 1.1 mg/dL; Start 09/20/17 at 14:30; Stop 09/29/17 at 07:38; Status DC Magnesium Oxide (Mag-Ox) 800 mg UNSCH PRN PO For Magnesium 1.2 - 1.6 mg/dL; Start 09/20/17 at 14:30; Stop 09/29/17 at 07:39; Status DC Magnesium Sulfate 2 gm/Sodium Chloride 100 ml @ 50 mls/hr UNSCH PRN IV For Magnesium 1.2 - 1.6 mg/dL; Start 09/20/17 at 14:30; Stop 09/29/17 at 07:39; Status DC Potassium Phosphate (K-Phos) 2,000 mg Q4H PRN PO For Phosphorus < 2.5 mg/dL; Start 09/20/17 at 14:30; Stop 09/29/17 at 07:39; Status DC Sodium Phosphate 30 mmol/Sodium Chloride 250 ml @ 42 mls/hr UNSCH PRN IV For Phosphorus < 2.5 mg/dL Last administered on 09/22/17at 19:59; Start 09/20/17 at 14:30; Stop 09/29/17 at 07:39; Status DC Potassium Phosphate (K-Phos) 2,000 mg UNSCH PRN PO/TUBE SEE LABEL COMMENTS; Start 09/20/17 at 14:30; Stop 09/29/17 at 07:39; Status DC Potassium Phosphate 30 mmol/ Sodium Chloride 260 ml @ 42 mls/hr UNSCH PRN IV SEE LABEL COMMENTS; Start 09/20/17 at 14:30; Stop 09/29/17 at 07:39; Status DC Amlodipine Besylate (Norvasc) 10 mg DAILY PO Last administered on 10/17/17at 09: 10; Start 09/22/17 at 09:00 Hydralazine HCl (Apresoline Inj) 10 mg Q1HR PRN IV PUSH SBP>140, DBP>90; Start 09/21/17 at 12:45 Enalaprilat (Vasotec Inj) 1.25 mg Q8H PRN IV PUSH SBP>140, DBP>90 Last administered on 10/17/17at 09:11; Start 09/21/17 at 12:45 Clevidipine 50 ml @ 2 mls/hr TITRATE PRN IV Blood Pressure Management; Start at 13:00 Phytonadione (Mephyton) 5 mg ONCE ONCE PO ; Start 09/21/17 at 16:00; Stop 09/21 at 16:00; Status DC Pantoprazole Sodium (Protonix) 40 mg DAILY PO Last administered on 10/19/17at 09 :13; Start 09/22/17 at 09:00 Phytonadione (Mephyton Liq) 5 mg ONCE PO Last administered on 09/21/17at 21:00; Start 09/21/17 at 16:00; Stop 09/21/17 at 17:00; Status DC Hydralazine HCl (Apresoline) 25 mg Q8HR PO Last administered on 10/17/17at 06:12 ; Start 09/21/17 at 15:45 Potassium Chloride (KCl) 30 meq ONCE ONCE PO Last administered on 09/22/17at 16 :47; Start 09/22/17 at 16:30; Stop 09/22/17 at 16:35; Status DC Magnesium Sulfate/ Dextrose 100 ml @ 100 mls/hr ONCE ONCE IV ; Start 09/22/17 at 16:30; Stop 09/22/17 at 17:29; Status Cancel Magnesium Sulfate/ Dextrose 100 ml @ 100 mls/hr Q1H IV Last administered on at 20:31; Start 09/22/17 at 16:30; Stop 09/22/17 at 19:29; Status DC Thiamine HCl (Vitamin B1) 100 mg DAILY PO Last administered on 10/19/17at 09:12 ; Start 09/25/17 at 09:00 Multivitamins (Theragran) 1 tab DAILY PO Last administered on 10/19/17at 09:13; Start 09/25/17 at 09:00 Phytonadione (Mephyton) 2.5 mg ONCE ONCE PO ; Start 09/24/17 at 12:45; Stop at 13:23; Status DC Phytonadione (Mephyton Liq) 2.5 mg ONCE ONCE PO ; Start 09/24/17 at 14:30; Stop 09/24/17 at 14:30; Status DC Phytonadione (Mephyton Liq) 2.5 mg ONCE ONCE PO Last administered on at 14:35; Start 09/24/17 at 14:30; Stop 09/24/17 at 14:31; Status DC Zolpidem Tartrate (Ambien) 5 mg ONCE ONCE PO Last administered on 09/26/17at 22 :34; Start 09/26/17 at 22:30; Stop 09/26/17 at 22:31; Status DC Acetaminophen (Tylenol) 500 mg Q4H PRN PO PAIN 1-4 ON SCALE;FEVER Last administered on 10/18/17at 10:26; Start 09/28/17 at 10:45 Melatonin (Melatonin) 5 mg ONCE ONCE PO Last administered on 09/29/17at 23:17; Start 09/29/17 at 22:00; Stop 09/29/17 at 22:01; Status DC Melatonin (Melatonin) 5 mg HS PRN PO INSOMNIA Last administered on 10/14/17at 20 :16; Start 09/30/17 at 21:00; Stop 10/15/17 at 13:38; Status DC Oxycodone HCl (Roxicodone) 5 mg Q6H PRN PO PAIN GREATER THAN 5 Last administered on 10/19/17at 09:20; Start 10/01/17 at 11:15 Lactulose (Lactulose Liq) 30 ml TID PO Last administered on 10/18/17at 08:17; Start 10/01/17 at 13:00 Ibuprofen (Motrin) 400 mg Q6H PRN PO fever>100.4 Last administered on 10/04/17at 12:39; Start 10/04/17 at 12:00 Vancomycin HCl 1100 mg/Sodium Chloride 261 ml @ 250 mls/hr ONCE ONCE IV ; Start 10/04/17 at 13:00; Stop 10/04/17 at 13:15; Status DC Piperacillin Sod/ Tazobactam Sod 100 ml @ 200 mls/hr Q6H IV ; Start 10/04/17 at 14:00; Status Cancel Vancomycin HCl 1000 mg/Sodium Chloride 250 ml @ 250 mls/hr ONCE ONCE IV Last administered on 10/04/17at 14:18; Start 10/04/17 at 14:00; Stop 10/04/17 at 14:59; Status DC Metronidazole (Flagyl) 500 mg Q8H PO Last administered on 10/07/17at 05:51; Start 10/04/17 at 15:00; Stop 10/07/17 at 13:42; Status DC Sodium Chloride 1,000 ml @ 84 mls/hr [id number] IV Last administered on 10/04/17at 16:46; Start 10/04/17 at 15:15; Stop 10/05/17 at 03:09; Status DC Piperacillin Sod/ Tazobactam Sod 100 ml @ 200 mls/hr Q6H IV Last administered on 10/07/17at 10:00; Start 10/04/17 at 17:00; Stop 10/07/17 at 13:42; Status DC Ceftriaxone Sodium 2000 mg/ Sodium Chloride 100 ml @ 200 mls/hr Q24H IV Last administered on 10/13/17at 12:49; Start 10/07/17 at 14:00; Stop 10/14/17 at 11:46 ; Status DC Potassium Chloride (KCl) 20 meq ONCE ONCE PO Last administered on 10/09/17at 17: 21; Start 10/09/17 at 15:30; Stop 10/09/17 at 15:31; Status DC Diatrizoate Meglum/ Diatrizoate Sod ( Gastrojose Liq) 18 ml ONCE ONCE PO Last administered on 10/10/17at 12:47; Start 10/10/17 at 12:30; Stop 10/10/17 at 12: 31; Status DC Potassium Chloride (KCl) 40 meq ONCE ONCE PO Last administered on 10/12/17at 17: 08; Start 10/12/17 at 15:15; Stop 10/12/17 at 15:16; Status DC Magnesium Sulfate/ Dextrose 100 ml @ 100 mls/hr Q1H IV Last administered on 02/20at 16:42; Start 10/13/17 at 15:15; Stop 10/13/17 at 17:14; Status DC Levofloxacin (Levaquin) 750 mg DAILY PO Last administered on 10/19/17at 09:13; Start 10/14/17 at 12:00; Stop 11/01/17 at 11:59 Trazodone HCl (Desyrel) 50 mg HS PRN PO insomnia Last administered on at 20:17; Start 10/15/17 at 21:00 A/P Problem List: (1) Liver cirrhosis ICD Code: K74.60 - Unspecified cirrhosis of liver (2) Spleen hematoma ICD Code: S36.029A - Unspecified contusion of spleen, initial encounter Status: Acute (3) Hyperbilirubinemia ICD Code: E80.6 - Other disorders of bilirubin metabolism Status: Acute (4) Splenomegaly ICD Code: R16.1 - Splenomegaly, not elsewhere classified Status: Chronic (5) Ascites ICD Code: R18.8 - Other ascites Status: Chronic (6) Hypokalemia ICD Code: E87.6 - Hypokalemia Status: Resolved (7) Macrocytic anemia ICD Code: D53.9 - Nutritional anemia, unspecified Status: Chronic (8) HTN (hypertension) ICD Code: I10 - Essential (primary) hypertension Status: Chronic (9) Fall ICD Code: W19.XXXA - Unspecified fall, initial encounter Status: Acute (10) Left shoulder pain ICD Code: M25.512 - Pain in left shoulder (11) Edema of left lower extremity ICD Code: R60.0 - Localized edema (12) Hyperammonemia ICD Code: E72.20 - Disorder of urea cycle metabolism, unspecified (13) Coagulopathy ICD Code: D68.9 - Coagulation defect, unspecified Status: Acute (14) Diarrhea ICD Code: R19.7 - Diarrhea, unspecified Assessment and Plan Acute/subacute/chronic right subdural hematoma -3.5 cm thickness with compression of the sulci/gyri with the right to left subfalcine shift 4.7 mm/ Acute encephalopathy CT brain 09/18 revealed acute, subacute and chronic components to right subdural hematoma. 3.5 cm. Compression of the sulci and gyri. Right frontal right-to- left subfalcine shift approximately [address] brain 09/23 - interval placement of a right frontal subdural drain. There has been replacement of some of the frontal subdural fluid with air. Otherwise little change in the configuration with persistent grossly stable subfalcine shift in lateral ventricular compression with effacement of hemispheric cortical sulci. Status post right bur hole by Dr. Carranza. Drain have since been removed. Patient was placed on levetiracetam 500 mg IV twice daily 7 days. EEG with mild to moderate encephalopathic changes; No epileptic activity. - Blood pressure control keep systolic blood pressure less than 140. - Multivitamin, thiamine and folate daily 3 days has been completed. - Seizure precautions. - Pain medications as needed. - daughter is trying to arrange SNF placement in [place], but it may take a while to get approved. Case management assistance appreciated. E. coli bacteremia ID consult appreciated. Repeat CT abdomen unremarkable. - continue ceftriaxone per ID. May change to PO upon discharge. - Follow repeat blood cultures. NGTD. Hepatitis C genotype 1A viral load positive/ LA class B esophagitis/ Portal hypertension/ Abdominal ascites/ Elevated transaminases CT abdomen/pelvis 09/09 revealed abdominal ascites, esophageal/gastric varices. Splenomegaly. Shrunken liver. Small splenic hematoma. EGD 09/12 revealed LA class B esophagitis, gastric erythema of the antrum gastric and duodenal bulb/ second portion, portal hypertension/gastropathy. - Patient is on pantoprazole 40 mg po daily/home medications pantoprazole. - Diet as tolerated. - Outpatient evaluation for positive hepatitis C genotype 1A for treatment. - Recheck liver function tests as clinically indicated. Stable. - Continue lactulose 3 times daily. - Added Ensure 3 times daily. - Continue diuretics. Depression/ Insomnia Seems situational, s/t above. Neuropsychology consult appreciated. - low dose Ativan as needed. - consider Celexa per neuropsych. - trazodone added for insomnia. D/c melatonin. Tobaccoism Chronic. - Nasal cannula to maintain saturations greater than equal to 92%. - Incentive spirometry while awake. - Tobacco cessation self-education booklet will be provided. Acute kidney injury Avoid nephrotoxic medications. KAMILAH inhibitor has been held. Medullary nephrocalcinosis noted on CT abdomen. - continue Aldactone and Lasix as creatinine is returning to baseline. - Accurate I's and O - follow up with nephrology. Macrocytic anemia/ Thrombocytopenia/ Coagulopathic state secondary to underlying liver disease S/P Vitamin K. Received 4 pack platelets since admission along with 4 FFP, 2 liquid plasma, 2 cryoprecipitate. - follow CBC Chronic low back pain ARTEMIO 1:320 nucleolar positive with positive double-stranded DNA. Possibly also secondary to underlying liver disease/hepatitis. - Will need outpatient rheumatology workup - PT evaluate and treat. Hypokalemia Potassium level 3.5. - replete and monitor. Prophylax -GI -pantoprazole -DVT -SCD/holding pharmacological prophylaxis in light of acute subdural hematoma Discharge Planning PENDING SAFE DISCHARGE Problem Qualifiers (1) Liver cirrhosis: (2) Spleen hematoma: Qualified Codes: S36.029A - Unspecified contusion of spleen, initial encounter (3) Ascites: Qualified Codes: R18.8 - Other ascites (4) HTN (hypertension): Qualified Codes: I10 - Essential (primary) hypertension (5) Fall: Qualified Codes: W19.XXXA - Unspecified fall, initial encounter (6) Left shoulder pain: Qualified Codes: M25.512 - Pain in left shoulder (7) Diarrhea: Qualified Codes: R19.7 - Diarrhea, unspecified Gilbert Haeys DO Oct 19, 2017 10:53
[2017-10-19 12:00] VITALS: BP 114/67; PULSE 82; RESP 18; TEMP 98.1; O2SAT 96
[2017-10-19 16:01] VITALS: BP 105/54; PULSE 86; RESP 18; TEMP 98; O2SAT 98
[2017-10-19 20:00] VITALS: BP 123/58; PULSE 92; RESP 18; TEMP 98.1; O2SAT 96
[2017-10-19] MEDS: traZODone HCL 50 MG TAB PO PRN (22:28)
[2017-10-20] VITALS (7 sets, daily range): BP systolic 103–116; BP diastolic 54–59; PULSE 72–92; RESP 18; TEMP 97.8–99.1; O2SAT 96–98
[2017-10-20] MEDS: hydrALAZINE HCL 25 MG TAB PO SCH ×3 (04:56→20:52)
[2017-10-20] MEDS: PANTOPRAZOLE SOD 40 MG DELAYED RELEASE TAB PO SCH (08:26)
[2017-10-20] MEDS: MULTIVITAMIN TAB PO SCH (08:26)
[2017-10-20] MEDS: LEVOFLOXACIN 750 MG TAB PO SCH (08:26)
[2017-10-20] MEDS: DOCUSATE SODIUM 50 MG/SENNA 8.6 MG TAB PO SCH ×2 (08:26→20:51)
[2017-10-20] MEDS: THIAMINE HCL 100 MG TAB PO SCH (08:27)
[2017-10-20] MEDS: SPIRONOLACTONE 25 MG TAB PO SCH (08:27)
[2017-10-20] MEDS: SODIUM CHLORIDE 0.9% FLUSH 10 ML FLUSH IV FLUSH SCH ×2 (08:27→20:52)
[2017-10-20] MEDS: FUROSEMIDE 40 MG TAB PO SCH (08:27)
[2017-10-20] MEDS: LACTULOSE SYRUP 20 GM/30 ML CUP PO SCH ×3 (08:31→18:00)
[2017-10-20] MEDS: ARTIFICIAL TEARS OPTH SOLN 15 ML BTL EACH EYE SCH ×3 (08:33→18:00)
--- NOTE | 2017-10-20 10:36 | HHI.PR ---
Subjective Remarks Patient seen and examined this morning. Afebrile vital signs stable. Patient is slightly upset by the fact that he has been in the hospital for over a month , explained to him that I be upset to its understandable. His family is working to get [place] [facility] [place] in [facility]. Informed him that I think that is an excellent plan for him to be closer to family. Objective Vitals Vital Signs Date Time Temp Pulse Resp B/P (MAP) Pulse Ox O2 Delivery O2 Flow Rate FiO2 10/20/17 07:57 99.1 85 18 114/58 (76) 98 10/20/17 04:00 98.0 85 18 103/55 (71) 97 10/20/17 00:00 97.8 86 18 103/54 (70) 97 10/19/17 20:00 98.1 92 18 123/58 (79) 96 10/19/17 16:01 98.0 86 18 105/54 (71) 98 10/19/17 12:00 98.1 82 18 114/67 (83) 96 I/O 10/19/17 10/19/17 10/19/17 10/20/17 10/20/17 10/20/17 07:00 15:00 23:00 07:00 15:00 23:00 Output Total 200 ml 800 ml Balance -200 ml -800 ml Output Urine Total 200 ml 800 ml # Bowel Movements 1 Result Diagram: 10/17/17 0520 10/17/17 0520 Imaging Last Impressions Head CT 10/16/17 0000 Signed Impressions: CONCLUSION: 1. Persistent right frontoparietal subdural collection which is decreased in o verall size compared to 09/23/2017 but still prominent in width in the frontal r egion measuring 2.1 cm in greatest width. The majority of the collection is com posed of subacute blood although there are small areas of hyperdense blood prod ucts suggesting some acute hemorrhage. There is 3 mm of subfalcine herniation t o the left which is slightly improved compared to the previous examination. 2. Stable tiny acute left frontal subdural measuring 2 mm in greatest width. Abdomen/Pelvis CT 10/10/17 0000 Signed Impressions: CONCLUSION: 1. Cirrhotic liver appearance with prominent stigmata of portal hypertension. 2. Nonspecific lymphadenopathy. 3. Mild ascites. 4. Gallstones. 5. Medullary nephrocalcinosis. 6. Small effusions and mild lung base atelectasis. Renal Ultrasound 10/08/17 Signed Impressions: CONCLUSION: 1. There are no findings to indicate obstruction. Kidneys have a normal appear ance. 2. Small volume of ascites in this patient with cirrhosis. Abdomen Ultrasound 10/06/17 Signed Impressions: CONCLUSION: 1. Small amount of ascites along the edge of the liver. 2. Nodularity of the hepatic contour suggesting cirrhosis. Liver Ultrasound 10/04/17 Signed Impressions: CONCLUSION: 1. No specific abnormality is identified to explain the patient's fever. 2. However, there are persistent findings indicating cirrhosis with findings o f portal hypertension including splenomegaly, recanalized paraumbilical vein, a nd ascites. 3. There is hepatofugal flow in the main portal vein. Chest X-Ray 10/04/17 Signed Impressions: CONCLUSION: No acute cardiopulmonary process. Shoulder X-Ray 09/09/17 Signed Impressions: Service Date/Time: Saturday, September 09, 2017 21:01 - CONCLUSION: 1. No acute bony abnormality. Vito Minor MD Lower Extremity Ultrasound 09/09/17 Signed Impressions: Service Date/Time: Saturday, September 09, 2017 21:41 - CONCLUSION: Normal examination. Henok Young MD Elbow X-Ray 09/09/17 Signed Impressions: Service Date/Time: Saturday, September 09, 2017 20:53 - CONCLUSION: 1. No acute bony abnormalities. Vito Minor MD Objective Remarks GEN: Well-developed, well-nourished patient. No acute distress. CV: Regular rate and rhythm without obvious murmurs LUNGS: Clear to auscultation bilaterally. Normal respiratory effort. No wheezes , rales, rhonchi. GI: Soft, nontender, nondistended. No palpable masses. Bowel sounds WNL. EXT: No edema. NEURO/PSYCH: Afocal. Awake, alert, and oriented x3. Appropriate insight and judgment. Procedures EGD PROCEDURE REPORT EXAM DATE: 09/12/2017 PATIENT NAME: Malik Valentine MR #: [id number] BIRTHDATE: 1955 ATTENDING: Med Dominguez MD ORDER #: [id number] CURRICULUM ADVISORY TEACHER: Julienne Castro RN STATUS: inpatient INDICATIONS: The patient is a 62 yr old male here for an EGD due to Cirrhosis PROCEDURE PERFORMED: EGD, diagnostic MEDICATIONS: None and Per Anesthesia. TOPICAL ANESTHETIC: CONSENT: The patient understands the risks and benefits of the procedure and understands that these risks include, but are not limited to: sedation, allergic reaction, infection, perforation and/or bleeding. Alternative means of evaluation and treatment include, among others: physical exam, x-rays, and/or surgical intervention. The patient elects to proceed with this endoscopic procedure. medical equipment was checked for proper function. Hand hygiene and appropriate measures for infection prevention was taken. After the risks, benefits and alternatives of the procedure were thoroughly explained, Informed consent was verified, confirmed and timeout was successfully executed by the treatment team. The patient was anesthetized with topical anesthesia and the Pentax [id number] endoscope was introduced through the mouth and advanced to the second portion of the duodenum. Retroflexed views revealed no abnormalities The gastroscope was then slowly withdrawn and removed. ESOPHAGUS: There was LA Class B esophagitis noted. STOMACH: There was erythematous moderate gastritis in the gastric antrum. Severe portal hypertensive gastropathy was found in the gastric body and gastric fundus. DUODENUM: Moderate duodenal inflammation was found in the bulb and second portion of the duodenum. ADVERSE EVENTS: There were no complications. IMPRESSIONS: 1. There was LA Class B esophagitis noted 2. There was erythematous gastritis in the gastric antrum 3. Portal hypertensive gastropathy was found in the gastric body and gastric fundus 4. Duodenal inflammation was found in the bulb and second portion of the duodenum 5. Retroflexed views revealed no abnormalities RECOMMENDATIONS: 1. Anti-reflux regimen 2. Continue PPI 3. Avoid NSAIDS PATIENT CONDITION: stable DISPOSITION: Inpatient REPEAT EXAM: Return 6 months EGD [facility] ON 09-20 FOR [facility] EVACUATION Medications and IVs Current Medications Medications (Trade) Dose Ordered Sig/Tosin Route Start Time Stop Time Status Last Admin (NS Flush) 2 ml UNSCH PRN IV FLUSH 09/09/17 09:15 09/24/17 21:30 (NS Flush) 2 ml BID IV FLUSH 09/09/17 21:00 10/20/17 08:27 (Zofran Inj) 4 mg Q6H PRN IVP 09/09/17 09:15 09/28/17 21:48 (Narcan Inj) 0.4 mg UNSCH PRN IV PUSH 09/09/17 09:15 (Toña-Colace) 1 tab BID PO 09/09/17 21:00 10/20/17 08:26 (Milk Of Magnnacho Liq) 30 ml Q12H PRN PO 09/09/17 09:15 10/01/17 02:38 (Senokot) 17.2 mg Q12H PRN PO 09/09/17 09:15 (Dulcolax Supp) 10 mg DAILY PRN RECTAL 09/09/17 09:15 (Romazicon Inj) 0.2 mg Q1M PRN IV PUSH 09/09/17 20:00 (Ativan) 1 mg Q4H PRN PO 09/09/17 20:00 (Ativan Inj) 1 mg Q4H PRN IV PUSH 09/09/17 20:00 (Ativan) 2 mg Q2H PRN PO 09/09/17 20:00 (Ativan Inj) 2 mg Q2H PRN IV PUSH 09/09/17 20:00 (Ativan Inj) 2 mg Q1H PRN IV PUSH 09/09/17 20:00 (Ativan Inj) 2 mg Q15M PRN IV PUSH 09/09/17 20:00 (Aldactone) 25 mg DAILY PO 09/09/17 20:00 10/20/17 08:27 (Catapres) 0.1 mg Q6H PRN PO 09/10/17 12:45 10/17/17 09:11 (Lasix) 40 mg DAILY PO 09/15/17 13:30 10/20/17 08:27 (Trandate Inj) 10 mg Q1HR PRN IV PUSH 09/18/17 14:15 09/21/17 03:30 Nicardipine HCl 25 mg/Sodium Chloride 250 ml @ 50 mls/hr TITRATE PRN IV 09/18/17 14:15 (Tears Naturale Opth Soln) 1 drop TID EACH EYE 09/18/17 18:00 10/19/17 09:00 (Zofran Odt) 4 mg Q6H PRN PO 09/18/17 14:45 (Albuterol Neb) 2.5 mg Q2HR NEB PRN INH 09/18/17 14:45 09/28/17 12:28 ([facility]) 1 Q361D XX 09/18/17 14:45 09/18/17 14:45 (Chlorhexidine 2% Cloth) Taper DAILY@04 TOP 09/19/17 04:00 09/15/18 03:59 09/23/17 04:00 (Chlorhexidine 2% Cloth) 3 pack UNSCH PRN TOP 09/18/17 14:45 (Norvasc) 10 mg DAILY PO 09/22/17 09:00 10/17/17 09:10 (Apresoline Inj) 10 mg Q1HR PRN IV PUSH 09/21/17 12:45 (Vasotec Inj) 1.25 mg Q8H PRN IV PUSH 09/21/17 12:45 10/17/17 09:11 Clevidipine 50 ml @ 2 mls/hr TITRATE PRN IV 09/21/17 13:00 (Protonix) 40 mg DAILY PO 09/22/17 09:00 10/20/17 08:26 (Apresoline) 25 mg Q8HR PO 09/21/17 15:45 10/19/17 22:28 (Vitamin B1) 100 mg DAILY PO 09/25/17 09:00 10/20/17 08:27 (Theragran) 1 tab DAILY PO 09/25/17 09:00 10/20/17 08:26 (Tylenol) 500 mg Q4H PRN PO 09/28/17 10:45 10/18/17 10:26 (Roxicodone) 5 mg Q6H PRN PO 10/01/17 11:15 10/20/17 10:16 (Lactulose Liq) 30 ml TID PO 10/01/17 13:00 10/18/17 08:17 (Motrin) 400 mg Q6H PRN PO 10/04/17 12:00 10/04/17 12:39 (Levaquin) 750 mg DAILY PO 10/14/17 12:00 11/01/17 11:59 10/20/17 08:26 (Desyrel) 50 mg HS PRN PO 10/15/17 21:00 10/19/17 22:28 A/P Problem List: (1) Liver cirrhosis ICD Code: K74.60 - Unspecified cirrhosis of liver (2) Spleen hematoma ICD Code: S36.029A - Unspecified contusion of spleen, initial encounter Status: Acute (3) Hyperbilirubinemia ICD Code: E80.6 - Other disorders of bilirubin metabolism Status: Acute (4) Splenomegaly ICD Code: R16.1 - Splenomegaly, not elsewhere classified Status: Chronic (5) Ascites ICD Code: R18.8 - Other ascites Status: Chronic (6) Hypokalemia ICD Code: E87.6 - Hypokalemia Status: Resolved (7) Macrocytic anemia ICD Code: D53.9 - Nutritional anemia, unspecified Status: Chronic (8) HTN (hypertension) ICD Code: I10 - Essential (primary) hypertension Status: Chronic (9) Fall ICD Code: W19.XXXA - Unspecified fall, initial encounter Status: Acute (10) Left shoulder pain ICD Code: M25.512 - Pain in left shoulder (11) Edema of left lower extremity ICD Code: R60.0 - Localized edema (12) Hyperammonemia ICD Code: E72.20 - Disorder of urea cycle metabolism, unspecified (13) Coagulopathy ICD Code: D68.9 - Coagulation defect, unspecified Status: Acute (14) Diarrhea ICD Code: R19.7 - Diarrhea, unspecified Assessment and Plan Acute/subacute/chronic right subdural hematoma -3.5 cm thickness with compression of the sulci/gyri with the right to left subfalcine shift 4.7 mm/ Acute encephalopathy CT brain 09/18 revealed acute, subacute and chronic components to right subdural hematoma. 3.5 cm. Compression of the sulci and gyri. Right frontal right-to- left subfalcine shift approximately [address] brain 09/23 - interval placement of a right frontal subdural drain. There has been replacement of some of the frontal subdural fluid with air. Otherwise little change in the configuration with persistent grossly stable subfalcine shift in lateral ventricular compression with effacement of hemispheric cortical sulci. Status post right bur hole by Dr. Carranza. Drain have since been removed. Patient was placed on levetiracetam 500 mg IV twice daily 7 days. EEG with mild to moderate encephalopathic changes; No epileptic activity. - Blood pressure control keep systolic blood pressure less than 140. - Multivitamin, thiamine and folate daily 3 days has been completed. - Seizure precautions. - Pain medications as needed. - daughter is trying to arrange SNF placement in [place], but it may take a while to get approved. Case management assistance appreciated. E. coli bacteremia ID consult appreciated. Repeat CT abdomen unremarkable. - continue ceftriaxone per ID. May change to PO upon discharge. - Follow repeat blood cultures. NGTD. Hepatitis C genotype 1A viral load positive/ LA class B esophagitis/ Portal hypertension/ Abdominal ascites/ Elevated transaminases CT abdomen/pelvis 09/09 revealed abdominal ascites, esophageal/gastric varices. Splenomegaly. Shrunken liver. Small splenic hematoma. EGD 09/12 revealed LA class B esophagitis, gastric erythema of the antrum gastric and duodenal bulb/ second portion, portal hypertension/gastropathy. - Patient is on pantoprazole 40 mg po daily/home medications pantoprazole. - Diet as tolerated. - Outpatient evaluation for positive hepatitis C genotype 1A for treatment. - Recheck liver function tests as clinically indicated. Stable. - Continue lactulose 3 times daily. - Added Ensure 3 times daily. - Continue diuretics. Depression/ Insomnia Seems situational, s/t above. Neuropsychology consult appreciated. - low dose Ativan as needed. - consider Celexa per neuropsych. - trazodone added for insomnia. D/c melatonin. Tobaccoism Chronic. - Nasal cannula to maintain saturations greater than equal to 92%. - Incentive spirometry while awake. - Tobacco cessation self-education booklet will be provided. Acute kidney injury Avoid nephrotoxic medications. KAMILAH inhibitor has been held. Medullary nephrocalcinosis noted on CT abdomen. - continue Aldactone and Lasix as creatinine is returning to baseline. - Accurate I's and O - follow up with nephrology. Macrocytic anemia/ Thrombocytopenia/ Coagulopathic state secondary to underlying liver disease S/P Vitamin K. Received 4 pack platelets since admission along with 4 FFP, 2 liquid plasma, 2 cryoprecipitate. - follow CBC Chronic low back pain ARTEMIO 1:320 nucleolar positive with positive double-stranded DNA. Possibly also secondary to underlying liver disease/hepatitis. - Will need outpatient rheumatology workup - PT evaluate and treat. Hypokalemia Potassium level 3.5. - replete and monitor. Prophylax -GI -pantoprazole -DVT -SCD/holding pharmacological prophylaxis in light of acute subdural hematoma Discharge Planning PENDING SAFE DISCHARGE Problem Qualifiers (1) Liver cirrhosis: (2) Spleen hematoma: Qualified Codes: S36.029A - Unspecified contusion of spleen, initial encounter (3) Ascites: Qualified Codes: R18.8 - Other ascites (4) HTN (hypertension): Qualified Codes: I10 - Essential (primary) hypertension (5) Fall: Qualified Codes: W19.XXXA - Unspecified fall, initial encounter (6) Left shoulder pain: Qualified Codes: M25.512 - Pain in left shoulder (7) Diarrhea: Qualified Codes: R19.7 - Diarrhea, unspecified Filippo Walden MD R3 Oct 20, 2017 10:36
[2017-10-20] MEDS: traZODone HCL 50 MG TAB PO PRN (20:51)
[2017-10-21] VITALS: BP 114/62; PULSE 89; RESP 18; TEMP 97.8; O2SAT 96
[2017-10-21] MEDS: CHLORHEXIDINE GLUCONATE 2 % 1 PACK (2 CLOTHS) TOP SCH (03:52)
[2017-10-21 04:00] VITALS: BP 110/56; PULSE 83; RESP 18; TEMP 98; O2SAT 97
[2017-10-21] MEDS: hydrALAZINE HCL 25 MG TAB PO SCH ×3 (06:00→20:45)
[2017-10-21 08:00] VITALS: BP 111/55; PULSE 82; RESP 18; TEMP 98; O2SAT 96
[2017-10-21] MEDS: MULTIVITAMIN TAB PO SCH (08:35)
[2017-10-21] MEDS: SPIRONOLACTONE 25 MG TAB PO SCH (08:36)
[2017-10-21] MEDS: PANTOPRAZOLE SOD 40 MG DELAYED RELEASE TAB PO SCH (08:36)
[2017-10-21] MEDS: FUROSEMIDE 40 MG TAB PO SCH (08:37)
[2017-10-21] MEDS: THIAMINE HCL 100 MG TAB PO SCH (08:37)
[2017-10-21] MEDS: LACTULOSE SYRUP 20 GM/30 ML CUP PO SCH ×3 (08:37→18:12)
[2017-10-21] MEDS: LEVOFLOXACIN 750 MG TAB PO SCH (08:37)
[2017-10-21] MEDS: DOCUSATE SODIUM 50 MG/SENNA 8.6 MG TAB PO SCH ×2 (08:42→20:46)
[2017-10-21] MEDS: SODIUM CHLORIDE 0.9% FLUSH 10 ML FLUSH IV FLUSH SCH ×2 (08:42→20:46)
[2017-10-21] MEDS: ARTIFICIAL TEARS OPTH SOLN 15 ML BTL EACH EYE SCH ×3 (09:00→18:00)
[2017-10-21 12:00] VITALS: BP 110/56; PULSE 80; RESP 18; TEMP 97.5; O2SAT 98
--- NOTE | 2017-10-21 12:30 | HHI.PR ---
Neuropsych Emotional Emotional: Mild: Anxious/Fearful, Depressed/Sad Behavior Behavior: Intact: Coping/Acceptance, Cooperative w/ Treatment, Motivation, Frustration Tolerance/[place] Cognitive Cognitive: Mild: Cognitive, Attention/Concentration, Confused/Orientation, Insight/Awareness, Judgement/Problem-Solving, Memory Psychosocial Psychosocial: Moderate: Psychosocial, Family/Other Adjustment, Realistic Expectation, Unable to Asses: Self-Esteem/Confidence Progress Notes/Response to Tx Contents of Sessions: Adjustment, Level of Consciousness Time with Patient: 30 minutes Premorbid psychological status Premorbid Cognitive, Emotional and Behavioral Status: Tenuous. The patient has high school years of education and a solid work history prior to this injury , but has been on disability for several years. The patient has no prior psychiatric difficulties, as described above, except ETOH dependence and depression. Substance abuse history includes ETOH, which has contributed to his medical state. Behavioral Reactions of Patient and Family/Support System: Tenuous. The patients family is experiencing ongoing issues of adjustment given the nature of the injury, and this aspect of recovery will require ongoing monitoring. Emotional/Behavioral Status of Patient and Family/Support System: Tenuous. Pertinent issues, if appropriate to this patients clinical care, are described in detail above. Maximizing acute care outcome Given his hepatic dysfunction, pharmacological management of his depression is limited to medications with the least side effect profile. One medication that may meet this criteria is Citalopram, which you may wish to consider, unless otherwise medically contraindicated. I will follow-up with this patient for supportive psychotherapeutic contact throughout the rest of his stay. Also, he does complain of insomnia, but he may only be a candidate for melatonin, which he currently is prescribed. The benefits of melatonin on sleep improve is better if taken several hours PRIOR to sleep, and as such the medication may be more effective if scheduled two to three hours PRIOR to sleep. At this point in the recovery process, the patient does have cognitive capacity as the patient is able to understand a situation and its likely consequences, and he is able to manipulate information rationally. Cognitive capacity will be assessed throughout the recovery process. Anticipated Problems Ongoing areas of concern will include depression and anxiety, which is expected to improve with time and treatment. Treatment Plan This clinician will continue to follow with you throughout the course of this patients acute care treatment, and I will be available to meet with the patient s family/support system to facilitate their understanding and the ongoing care of their family member. The goals of neuropsychological intervention shall be both educational and supportive to the family/support system as is deemed clinically appropriate. Impression This 62 year old male with a history of chronic ETOH abuse, ESLD and brain injury, who is now complaining of depression due to losses of activity and participation. He is to transfer to an SNF in [place]. Clinically, he has mild neurocognitive dysfunction related to his multiple medical comorbidities, yet he still has decision making capacity. Emotionally, the patient meets criteria for major depressive disorder. Diagnosis: (1) Mild neurocognitive disorder (2) Alcohol dependence in controlled environment (3) Major depressive disorder, single episode, mild with anxious distress Progress Note Narrative Ongoing follow-up of patient seen for coping due to depression and anxiety. The patient was doing well, reporting some improvement in his mood and affect. I provided him a book to help him pass the time. No issues of agitation/ restlessness, and he remains quite compliant in his wait. I provided psychological support and encouragement. I will follow. Manuel Suazo PhD Oct 21, 2017 12:30 pm
--- NOTE | 2017-10-21 14:51 | HHI.PR ---
Subjective Remarks Awaiting placement. No events reported by nursing. Patient has no complaints at this time. Objective Vitals Vital Signs Date Time Temp Pulse Resp B/P (MAP) Pulse Ox O2 Delivery O2 Flow Rate FiO2 10/21/17 12:00 97.5 80 18 110/56 (74) 98 10/21/17 08:00 98.0 82 18 111/55 (73) 96 10/21/17 04:00 98.0 83 18 110/56 (74) 97 10/21/17 00:00 97.8 89 18 114/62 (79) 96 10/20/17 20:00 98.0 92 18 113/58 (76) 96 10/20/17 16:00 98.0 91 18 116/59 (78) 97 I/O 10/20/17 10/20/17 10/20/17 10/21/17 10/21/17 10/21/17 07:00 15:00 23:00 07:00 15:00 23:00 Output Total 800 ml 501 ml 400 ml Balance -800 ml -501 ml -400 ml Output Urine Total 800 ml 500 ml 400 ml Stool Total 1 ml # Voids 5 # Bowel Movements 2 2 Result Diagram: 10/17/17 0520 10/17/17 0520 Imaging Last Impressions Head CT 10/16/17 0000 Signed Impressions: CONCLUSION: 1. Persistent right frontoparietal subdural collection which is decreased in o verall size compared to 09/23/2017 but still prominent in width in the frontal r egion measuring 2.1 cm in greatest width. The majority of the collection is com posed of subacute blood although there are small areas of hyperdense blood prod ucts suggesting some acute hemorrhage. There is 3 mm of subfalcine herniation t o the left which is slightly improved compared to the previous examination. 2. Stable tiny acute left frontal subdural measuring 2 mm in greatest width. Abdomen/Pelvis CT 10/10/17 0000 Signed Impressions: CONCLUSION: 1. Cirrhotic liver appearance with prominent stigmata of portal hypertension. 2. Nonspecific lymphadenopathy. 3. Mild ascites. 4. Gallstones. 5. Medullary nephrocalcinosis. 6. Small effusions and mild lung base atelectasis. Renal Ultrasound 10/08/17 0000 Signed Impressions: CONCLUSION: 1. There are no findings to indicate obstruction. Kidneys have a normal appear ance. 2. Small volume of ascites in this patient with cirrhosis. Abdomen Ultrasound 10/06/17 Signed Impressions: CONCLUSION: 1. Small amount of ascites along the edge of the liver. 2. Nodularity of the hepatic contour suggesting cirrhosis. Liver Ultrasound 10/04/17 0000 Signed Impressions: CONCLUSION: 1. No specific abnormality is identified to explain the patient's fever. 2. However, there are persistent findings indicating cirrhosis with findings o f portal hypertension including splenomegaly, recanalized paraumbilical vein, a nd ascites. 3. There is hepatofugal flow in the main portal vein. Chest X-Ray 10/04/17 Signed Impressions: CONCLUSION: No acute cardiopulmonary process. Shoulder X-Ray 09/09/17 0000 Signed Impressions: Service Date/Time: Saturday, September 09, 2017 21:01 - CONCLUSION: 1. No acute bony abnormality. Vito Minor MD Lower Extremity Ultrasound 09/09/17 0000 Signed Impressions: Service Date/Time: Saturday, September 09, 2017 21:41 - CONCLUSION: Normal examination. Henok Young MD Elbow X-Ray 09/09/17 0000 Signed Impressions: Service Date/Time: Saturday, September 09, 2017 20:53 - CONCLUSION: 1. No acute bony abnormalities. Vito Minor MD Objective Remarks General: No acute distress. Heart: Regular rate and rhythm. No murmur. Lungs: Clear to auscultation bilaterally. No wheezes, rales, or rhonchi. Breathing is nonlabored. Abdomen: Soft, nontender, nondistended. Extremities: No lower extremity edema. Psych: Alert and oriented. Neuro: Normal speech. No focal deficits noted. Procedures 09/12/17 EGD 09/20/17 emelyn hole for evacuation of subdural hematoma Urinary Catheter: No Vascular Central Line Catheter: No A/P Problem List: (1) Liver cirrhosis ICD Code: K74.60 - Unspecified cirrhosis of liver (2) Spleen hematoma ICD Code: S36.029A - Unspecified contusion of spleen, initial encounter Status: Acute (3) Hyperbilirubinemia ICD Code: E80.6 - Other disorders of bilirubin metabolism Status: Acute (4) Splenomegaly ICD Code: R16.1 - Splenomegaly, not elsewhere classified Status: Chronic (5) Ascites ICD Code: R18.8 - Other ascites Status: Chronic (6) Hypokalemia ICD Code: E87.6 - Hypokalemia Status: Resolved (7) Macrocytic anemia ICD Code: D53.9 - Nutritional anemia, unspecified Status: Chronic (8) HTN (hypertension) ICD Code: I10 - Essential (primary) hypertension Status: Chronic (9) Fall ICD Code: W19.XXXA - Unspecified fall, initial encounter Status: Acute (10) Left shoulder pain ICD Code: M25.512 - Pain in left shoulder (11) Edema of left lower extremity ICD Code: R60.0 - Localized edema (12) Hyperammonemia ICD Code: E72.20 - Disorder of urea cycle metabolism, unspecified (13) Coagulopathy ICD Code: D68.9 - Coagulation defect, unspecified Status: Acute (14) Diarrhea ICD Code: R19.7 - Diarrhea, unspecified Assessment and Plan 1. Right subdural hematoma: Status post bur hole evacuation. Drain has been removed. Patient was placed on Keppra for 7 days. Continue blood pressure control. Seizure precautions. 2. E. coli bacteremia: Appreciate infectious disease recommendations. Continue Levaquin. Repeat blood cultures are negative so far. 3. Hepatitis C: Follow-up as outpatient with GI. 4. Depression, insomnia: Appreciate neuropsychology recommendations/ assistance. Low-dose Ativan as needed. Continue trazodone. 5. Tobacco abuse: Chronic. Counseled to quit smoking. 6. Acute kidney injury: Avoid nephrotoxic medications. Medullary nephrocalcinosis noted on CT. Continue Aldactone, Lasix. Monitor intake/ output. Follow-up with nephrology. 7. Macrocytic anemia, thrombocytopenia: Status post vitamin K. Received 4 units of platelets, 4 FFP, 2 liquid plasma, and 2 cryoprecipitate. Monitor labs. 8. Chronic low back pain: Follow-up as outpatient with rheumatology. Continue physical therapy. 9. Hypokalemia: Resolved. 10. GI prophylaxis: Protonix. 11. Hypertension: Continue hydralazine. Amlodipine on hold. Clonidine, Vasotec as needed. 12. DVT prophylaxis: SCDs. Avoid chemical prophylaxis secondary to subdural hematoma. Discharge Planning Plan for discharge once arrangements are made. Case management assisting with arranging SNF placement in [place] near the patient's family. Problem Qualifiers (1) Liver cirrhosis: (2) Spleen hematoma: Qualified Codes: S36.029A - Unspecified contusion of spleen, initial encounter (3) Ascites: Qualified Codes: R18.8 - Other ascites (4) HTN (hypertension): Qualified Codes: I10 - Essential (primary) hypertension (5) Fall: Qualified Codes: W19.XXXA - Unspecified fall, initial encounter (6) Left shoulder pain: Qualified Codes: M25.512 - Pain in left shoulder (7) Diarrhea: Qualified Codes: R19.7 - Diarrhea, unspecified Anthony Liu MD Oct 21, 2017 14:51
[2017-10-21 16:33] VITALS: BP 116/56; PULSE 79; RESP 18; TEMP 97.7; O2SAT 96
[2017-10-21] MEDS: traZODone HCL 50 MG TAB PO PRN (20:46)
[2017-10-21 20:47] VITALS: BP 116/54; PULSE 89; RESP 18; TEMP 98.4; O2SAT 96
[2017-10-22 01:06] VITALS: BP 106/55; PULSE 85; RESP 18; TEMP 98.1; O2SAT 98
[2017-10-22] MEDS: CHLORHEXIDINE GLUCONATE 2 % 1 PACK (2 CLOTHS) TOP SCH (04:01)
[2017-10-22 05:21] VITALS: BP 119/57; PULSE 89; RESP 18; TEMP 98.3; O2SAT 97
[2017-10-22] MEDS: hydrALAZINE HCL 25 MG TAB PO SCH ×3 (05:59→20:56)
[2017-10-22 08:20] VITALS: BP 123/59; PULSE 85; RESP 19; TEMP 97.9; O2SAT 98
[2017-10-22] MEDS: ARTIFICIAL TEARS OPTH SOLN 15 ML BTL EACH EYE SCH ×3 (09:00→18:00)
[2017-10-22] MEDS: THIAMINE HCL 100 MG TAB PO SCH (09:26)
[2017-10-22] MEDS: LEVOFLOXACIN 750 MG TAB PO SCH (09:26)
[2017-10-22] MEDS: FUROSEMIDE 40 MG TAB PO SCH (09:26)
[2017-10-22] MEDS: DOCUSATE SODIUM 50 MG/SENNA 8.6 MG TAB PO SCH ×2 (09:26→20:56)
[2017-10-22] MEDS: PANTOPRAZOLE SOD 40 MG DELAYED RELEASE TAB PO SCH (09:26)
[2017-10-22] MEDS: LACTULOSE SYRUP 20 GM/30 ML CUP PO SCH ×3 (09:26→18:26)
[2017-10-22] MEDS: MULTIVITAMIN TAB PO SCH (09:26)
[2017-10-22] MEDS: SPIRONOLACTONE 25 MG TAB PO SCH (09:26)
[2017-10-22] MEDS: SODIUM CHLORIDE 0.9% FLUSH 10 ML FLUSH IV FLUSH SCH ×2 (09:27→20:57)
[2017-10-22 12:18] VITALS: BP 119/60; PULSE 80; RESP 20; TEMP 98.3; O2SAT 98
--- NOTE | 2017-10-22 13:36 | HHI.PR ---
Subjective Remarks No events reported by nursing. Awaiting placement. Patient has no complaints at this time. Objective Vitals Vital Signs Date Time Temp Pulse Resp B/P (MAP) Pulse Ox O2 Delivery O2 Flow Rate FiO2 10/22/17 12:18 98.3 80 20 119/60 (79) 98 10/22/17 08:20 97.9 85 19 123/59 (80) 98 10/22/17 05:21 98.3 89 18 119/57 (77) 97 10/22/17 01:06 98.1 85 18 106/55 (72) 98 10/21/17 20:47 98.4 89 18 116/54 (74) 96 10/21/17 16:33 97.7 79 18 116/56 (76) 96 I/O 10/21/17 10/21/17 10/21/17 10/22/17 10/22/17 10/22/17 07:00 15:00 23:00 07:00 15:00 23:00 Intake Total 480 ml Output Total 400 ml 300 ml Balance -400 ml 180 ml Intake Oral 480 ml Output Urine Total 400 ml 300 ml # Voids 5 5 # Bowel Movements 2 3 1 Imaging Last Impressions Head CT 10/16/17 0000 Signed Impressions: CONCLUSION: 1. Persistent right frontoparietal subdural collection which is decreased in o verall size compared to 09/23/2017 but still prominent in width in the frontal r egion measuring 2.1 cm in greatest width. The majority of the collection is com posed of subacute blood although there are small areas of hyperdense blood prod ucts suggesting some acute hemorrhage. There is 3 mm of subfalcine herniation t o the left which is slightly improved compared to the previous examination. 2. Stable tiny acute left frontal subdural measuring 2 mm in greatest width. Abdomen/Pelvis CT 10/10/17 0000 Signed Impressions: CONCLUSION: 1. Cirrhotic liver appearance with prominent stigmata of portal hypertension. 2. Nonspecific lymphadenopathy. 3. Mild ascites. 4. Gallstones. 5. Medullary nephrocalcinosis. 6. Small effusions and mild lung base atelectasis. Renal Ultrasound 10/08/17 0000 Signed Impressions: CONCLUSION: 1. There are no findings to indicate obstruction. Kidneys have a normal appear ance. 2. Small volume of ascites in this patient with cirrhosis. Abdomen Ultrasound 6/3/18 0000 Signed Impressions: CONCLUSION: 1. Small amount of ascites along the edge of the liver. 2. Nodularity of the hepatic contour suggesting cirrhosis. Liver Ultrasound 10/04/17 Signed Impressions: CONCLUSION: 1. No specific abnormality is identified to explain the patient's fever. 2. However, there are persistent findings indicating cirrhosis with findings o f portal hypertension including splenomegaly, recanalized paraumbilical vein, a nd ascites. 3. There is hepatofugal flow in the main portal vein. Chest X-Ray 10/04/17 Signed Impressions: CONCLUSION: No acute cardiopulmonary process. Shoulder X-Ray 09/09/17 Signed Impressions: Service Date/Time: Saturday, September 09, 2017 21:01 - CONCLUSION: 1. No acute bony abnormality. Vito Minor MD Lower Extremity Ultrasound 09/09/17 0000 Signed Impressions: Service Date/Time: Saturday, September 09, 2017 21:41 - CONCLUSION: Normal examination. Henok Young MD Elbow X-Ray 09/09/17 0000 Signed Impressions: Service Date/Time: Saturday, September 09, 2017 20:53 - CONCLUSION: 1. No acute bony abnormalities. Vito Minor MD Objective Remarks General: No acute distress. Heart: Regular rate and rhythm. No murmur. Lungs: Clear to auscultation bilaterally. No wheezes, rales, or rhonchi. Breathing is nonlabored. Abdomen: Soft, nontender, nondistended. Extremities: No lower extremity edema. Psych: Alert and oriented. Neuro: Normal speech. No focal deficits noted. Procedures 09/12/17 EGD 09/20/17 emelyn hole for evacuation of subdural hematoma Urinary Catheter: No Vascular Central Line Catheter: No A/P Problem List: (1) Liver cirrhosis ICD Code: K74.60 - Unspecified cirrhosis of liver (2) Spleen hematoma ICD Code: S36.029A - Unspecified contusion of spleen, initial encounter Status: Acute (3) Hyperbilirubinemia ICD Code: E80.6 - Other disorders of bilirubin metabolism Status: Acute (4) Splenomegaly ICD Code: R16.1 - Splenomegaly, not elsewhere classified Status: Chronic (5) Ascites ICD Code: R18.8 - Other ascites Status: Chronic (6) Hypokalemia ICD Code: E87.6 - Hypokalemia Status: Resolved (7) Macrocytic anemia ICD Code: D53.9 - Nutritional anemia, unspecified Status: Chronic (8) HTN (hypertension) ICD Code: I10 - Essential (primary) hypertension Status: Chronic (9) Fall ICD Code: W19.XXXA - Unspecified fall, initial encounter Status: Acute (10) Left shoulder pain ICD Code: M25.512 - Pain in left shoulder (11) Edema of left lower extremity ICD Code: R60.0 - Localized edema (12) Hyperammonemia ICD Code: E72.20 - Disorder of urea cycle metabolism, unspecified (13) Coagulopathy ICD Code: D68.9 - Coagulation defect, unspecified Status: Acute (14) Diarrhea ICD Code: R19.7 - Diarrhea, unspecified Assessment and Plan 10/22/17: No change. Awaiting placement. Discussed with case management. 1. Right subdural hematoma: Status post bur hole evacuation. Drain has been removed. Patient was placed on Keppra for 7 days. Continue blood pressure control. Seizure precautions. 2. E. coli bacteremia: Appreciate infectious disease recommendations. Continue Levaquin. Repeat blood cultures are negative so far. 3. Hepatitis C: Follow-up as outpatient with GI. 4. Depression, insomnia: Appreciate neuropsychology recommendations/ assistance. Low-dose Ativan as needed. Continue trazodone. 5. Tobacco abuse: Chronic. Counseled to quit smoking. 6. Acute kidney injury: Avoid nephrotoxic medications. Medullary nephrocalcinosis noted on CT. Continue Aldactone, Lasix. Monitor intake/ output. Follow-up with nephrology. 7. Macrocytic anemia, thrombocytopenia: Status post vitamin K. Received 4 units of platelets, 4 FFP, 2 liquid plasma, and 2 cryoprecipitate. Monitor labs. 8. Chronic low back pain: Follow-up as outpatient with rheumatology. Continue physical therapy. 9. Hypokalemia: Resolved. 10. GI prophylaxis: Protonix. 11. Hypertension: Continue hydralazine. Amlodipine on hold. Clonidine, Vasotec as needed. 12. DVT prophylaxis: SCDs. Avoid chemical prophylaxis secondary to subdural hematoma. Discharge Planning Plan for discharge once arrangements are made. Case management assisting with arranging SNF placement in [place] near the patient's family. Problem Qualifiers (1) Liver cirrhosis: (2) Spleen hematoma: Qualified Codes: S36.029A - Unspecified contusion of spleen, initial encounter (3) Ascites: Qualified Codes: R18.8 - Other ascites (4) HTN (hypertension): Qualified Codes: I10 - Essential (primary) hypertension (5) Fall: Qualified Codes: W19.XXXA - Unspecified fall, initial encounter (6) Left shoulder pain: Qualified Codes: M25.512 - Pain in left shoulder (7) Diarrhea: Qualified Codes: R19.7 - Diarrhea, unspecified Anthony Liu MD Oct 22, 2017 13:36
[2017-10-22 16:44] VITALS: BP 112/56; PULSE 84; RESP 20; TEMP 98; O2SAT 97
[2017-10-22 20:34] VITALS: BP 120/58; PULSE 82; RESP 20; TEMP 97.8; O2SAT 97
[2017-10-22] MEDS: traZODone HCL 50 MG TAB PO PRN (20:57)
[2017-10-23 00:04] VITALS: BP 135/62; PULSE 89; RESP 20; TEMP 97.8; O2SAT 97
[2017-10-23] MEDS: CHLORHEXIDINE GLUCONATE 2 % 1 PACK (2 CLOTHS) TOP SCH (03:40)
[2017-10-23] MEDS: hydrALAZINE HCL 25 MG TAB PO SCH ×3 (06:59→20:54)
[2017-10-23 08:00] VITALS: BP 124/58; PULSE 90; RESP 18; TEMP 98.3; O2SAT 97
[2017-10-23] MEDS: ARTIFICIAL TEARS OPTH SOLN 15 ML BTL EACH EYE SCH ×3 (09:13→17:46)
[2017-10-23] MEDS: LACTULOSE SYRUP 20 GM/30 ML CUP PO SCH ×3 (09:14→17:14)
[2017-10-23] MEDS: THIAMINE HCL 100 MG TAB PO SCH (09:14)
[2017-10-23] MEDS: SODIUM CHLORIDE 0.9% FLUSH 10 ML FLUSH IV FLUSH SCH ×2 (09:14→20:53)
[2017-10-23] MEDS: FUROSEMIDE 40 MG TAB PO SCH (09:14)
[2017-10-23] MEDS: SPIRONOLACTONE 25 MG TAB PO SCH (09:14)
[2017-10-23] MEDS: MULTIVITAMIN TAB PO SCH (09:14)
[2017-10-23] MEDS: DOCUSATE SODIUM 50 MG/SENNA 8.6 MG TAB PO SCH ×2 (09:14→20:54)
[2017-10-23] MEDS: PANTOPRAZOLE SOD 40 MG DELAYED RELEASE TAB PO SCH (09:14)
[2017-10-23] MEDS: LEVOFLOXACIN 750 MG TAB PO SCH (09:14)
[2017-10-23 12:00] VITALS: BP_SYST 122; PULSE 90; RESP 19; TEMP 98.4; O2SAT 97
--- NOTE | 2017-10-23 12:37 | HHI.PR ---
Neuropsych Emotional Emotional: Mild: Anxious/Fearful, Depressed/Sad Behavior Behavior: Intact: Coping/Acceptance, Cooperative w/ Treatment, Motivation, Frustration Tolerance/[place], Impulsive/Agitated Cognitive Cognitive: Intact: Cognitive, Attention/Concentration, Confused/Orientation, Insight/Awareness, Judgement/Problem-Solving, Memory Psychosocial Psychosocial: Moderate: Psychosocial, Family/Other Adjustment, Realistic Expectation, Self-Esteem/Confidence Progress Notes/Response to Tx Contents of Sessions: Adjustment Time with Patient: 30 minutes Premorbid psychological status Premorbid Cognitive, Emotional and Behavioral Status: Tenuous. The patient has high school years of education and a solid work history prior to this injury , but has been on disability for several years. The patient has no prior psychiatric difficulties, as described above, except ETOH dependence and depression. Substance abuse history includes ETOH, which has contributed to his medical state. Behavioral Reactions of Patient and Family/Support System: Tenuous. The patients family is experiencing ongoing issues of adjustment given the nature of the injury, and this aspect of recovery will require ongoing monitoring. Emotional/Behavioral Status of Patient and Family/Support System: Tenuous. Pertinent issues, if appropriate to this patients clinical care, are described in detail above. Maximizing acute care outcome Given his hepatic dysfunction, pharmacological management of his depression is limited to medications with the least side effect profile. One medication that may meet this criteria is Citalopram, which you may wish to consider, unless otherwise medically contraindicated. I will follow-up with this patient for supportive psychotherapeutic contact throughout the rest of his stay. Also, he does complain of insomnia, but he may only be a candidate for melatonin, which he currently is prescribed. The benefits of melatonin on sleep improve is better if taken several hours PRIOR to sleep, and as such the medication may be more effective if scheduled two to three hours PRIOR to sleep. At this point in the recovery process, the patient does have cognitive capacity as the patient is able to understand a situation and its likely consequences, and he is able to manipulate information rationally. Cognitive capacity will be assessed throughout the recovery process. Anticipated Problems Ongoing areas of concern will include depression and anxiety, which is expected to improve with time and treatment. Treatment Plan This clinician will continue to follow with you throughout the course of this patients acute care treatment, and I will be available to meet with the patient s family/support system to facilitate their understanding and the ongoing care of their family member. The goals of neuropsychological intervention shall be both educational and supportive to the family/support system as is deemed clinically appropriate. Impression This 62 year old male with a history of chronic ETOH abuse, ESLD and brain injury, who is now complaining of depression due to losses of activity and participation. He is to transfer to an SNF in [place]. Clinically, he has mild neurocognitive dysfunction related to his multiple medical comorbidities, yet he still has decision making capacity. Emotionally, the patient meets criteria for major depressive disorder. Diagnosis: (1) Mild neurocognitive disorder (2) Alcohol dependence in controlled environment (3) Major depressive disorder, single episode, mild with anxious distress Progress Note Narrative Day 44 of hospitalization. The patient's mood and affect are improved. He is reading a book that I provided him to pass the time until [place] is [place]. No neurobehavioral issues are presenting. I provided him psychological support and encouragement. I will follow. Manuel Suazo PhD Oct 23, 2017 12:37 pm
--- NOTE | 2017-10-23 14:13 | HHI.PR ---
Subjective Remarks Awaiting safe discharge plan. Patient has no complaints at this time. Wants to go to [place] to stay with his daughter. Objective Vitals Vital Signs Date Time Temp Pulse Resp B/P (MAP) Pulse Ox O2 Delivery O2 Flow Rate FiO2 10/23/17 08:00 98.3 90 18 124/58 (80) 97 10/23/17 01:08 18 10/23/17 00:04 97.8 89 20 135/62 (86) 97 10/22/17 20:34 97.8 82 20 120/58 (78) 97 10/22/17 16:44 98.0 84 20 112/56 (74) 97 I/O 10/22/17 10/22/17 10/22/17 10/23/17 10/23/17 10/23/17 07:00 15:00 23:00 07:00 15:00 23:00 Intake Total 480 ml Balance 480 ml Intake Oral 480 ml # Voids 5 3 4 # Bowel Movements 1 1 1 Imaging Last Impressions Head CT 10/16/17 0000 Signed Impressions: CONCLUSION: 1. Persistent right frontoparietal subdural collection which is decreased in o verall size compared to 09/23/2017 but still prominent in width in the frontal r egion measuring 2.1 cm in greatest width. The majority of the collection is com posed of subacute blood although there are small areas of hyperdense blood prod ucts suggesting some acute hemorrhage. There is 3 mm of subfalcine herniation t o the left which is slightly improved compared to the previous examination. 2. Stable tiny acute left frontal subdural measuring 2 mm in greatest width. Abdomen/Pelvis CT 10/10/17 Signed Impressions: CONCLUSION: 1. Cirrhotic liver appearance with prominent stigmata of portal hypertension. 2. Nonspecific lymphadenopathy. 3. Mild ascites. 4. Gallstones. 5. Medullary nephrocalcinosis. 6. Small effusions and mild lung base atelectasis. Renal Ultrasound 10/08/17 Signed Impressions: CONCLUSION: 1. There are no findings to indicate obstruction. Kidneys have a normal appear ance. 2. Small volume of ascites in this patient with cirrhosis. Abdomen Ultrasound 10/06/17 Signed Impressions: CONCLUSION: 1. Small amount of ascites along the edge of the liver. 2. Nodularity of the hepatic contour suggesting cirrhosis. Liver Ultrasound 6/1/18 0000 Signed Impressions: CONCLUSION: 1. No specific abnormality is identified to explain the patient's fever. 2. However, there are persistent findings indicating cirrhosis with findings o f portal hypertension including splenomegaly, recanalized paraumbilical vein, a nd ascites. 3. There is hepatofugal flow in the main portal vein. Chest X-Ray 10/04/17 0000 Signed Impressions: CONCLUSION: No acute cardiopulmonary process. Shoulder X-Ray 09/09/17 0000 Signed Impressions: Service Date/Time: Saturday, September 09, 2017 21:01 - CONCLUSION: 1. No acute bony abnormality. Vito Minor MD Lower Extremity Ultrasound 09/09/17 0000 Signed Impressions: Service Date/Time: Saturday, September 09, 2017 21:41 - CONCLUSION: Normal examination. Henok Young MD Elbow X-Ray 09/09/17 0000 Signed Impressions: Service Date/Time: Saturday, September 09, 2017 20:53 - CONCLUSION: 1. No acute bony abnormalities. Vito Minor MD Objective Remarks General: No acute distress. Heart: Regular rate and rhythm. 2/6 murmur. Lungs: Clear to auscultation bilaterally. No wheezes, rales, or rhonchi. Breathing is nonlabored. Abdomen: Soft, nontender, nondistended. Extremities: No lower extremity edema. Psych: Alert and oriented. Neuro: Normal speech. No focal deficits noted. Procedures 09/12/17 EGD 09/20/17 emelyn hole for evacuation of subdural hematoma Urinary Catheter: No Vascular Central Line Catheter: No A/P Problem List: (1) Liver cirrhosis ICD Code: K74.60 - Unspecified cirrhosis of liver (2) Spleen hematoma ICD Code: S36.029A - Unspecified contusion of spleen, initial encounter Status: Acute (3) Hyperbilirubinemia ICD Code: E80.6 - Other disorders of bilirubin metabolism Status: Acute (4) Splenomegaly ICD Code: R16.1 - Splenomegaly, not elsewhere classified Status: Chronic (5) Ascites ICD Code: R18.8 - Other ascites Status: Chronic (6) Hypokalemia ICD Code: E87.6 - Hypokalemia Status: Resolved (7) Macrocytic anemia ICD Code: D53.9 - Nutritional anemia, unspecified Status: Chronic (8) HTN (hypertension) ICD Code: I10 - Essential (primary) hypertension Status: Chronic (9) Fall ICD Code: W19.XXXA - Unspecified fall, initial encounter Status: Acute (10) Left shoulder pain ICD Code: M25.512 - Pain in left shoulder (11) Edema of left lower extremity ICD Code: R60.0 - Localized edema (12) Hyperammonemia ICD Code: E72.20 - Disorder of urea cycle metabolism, unspecified (13) Coagulopathy ICD Code: D68.9 - Coagulation defect, unspecified Status: Acute (14) Diarrhea ICD Code: R19.7 - Diarrhea, unspecified Assessment and Plan 10/23/17: No change. Awaiting arrangements for safe discharge. 1. Right subdural hematoma: Status post bur hole evacuation. Drain has been removed. Patient was placed on Keppra for 7 days. Continue blood pressure control. Seizure precautions. 2. E. coli bacteremia: Appreciate infectious disease recommendations. Continue Levaquin. Repeat blood cultures are negative so far. 3. Hepatitis C: Follow-up as outpatient with GI. 4. Depression, insomnia: Appreciate neuropsychology recommendations/ assistance. Low-dose Ativan as needed. Continue trazodone. 5. Tobacco abuse: Chronic. Counseled to quit smoking. 6. Acute kidney injury: Avoid nephrotoxic medications. Medullary nephrocalcinosis noted on CT. Continue Aldactone, Lasix. Monitor intake/ output. Follow-up with nephrology. 7. Macrocytic anemia, thrombocytopenia: Status post vitamin K. Received 4 units of platelets, 4 FFP, 2 liquid plasma, and 2 cryoprecipitate. Monitor labs. 8. Chronic low back pain: Follow-up as outpatient with rheumatology. Continue physical therapy. 9. Hypokalemia: Resolved. 10. GI prophylaxis: Protonix. 11. Hypertension: Continue hydralazine. Amlodipine on hold. Clonidine, Vasotec as needed. 12. DVT prophylaxis: SCDs. Avoid chemical prophylaxis secondary to subdural hematoma. Discharge Planning Plan for discharge once arrangements are made. Case management assisting with arranging SNF placement in [place] near the patient's family. Problem Qualifiers (1) Liver cirrhosis: (2) Spleen hematoma: Qualified Codes: S36.029A - Unspecified contusion of spleen, initial encounter (3) Ascites: Qualified Codes: R18.8 - Other ascites (4) HTN (hypertension): Qualified Codes: I10 - Essential (primary) hypertension (5) Fall: Qualified Codes: W19.XXXA - Unspecified fall, initial encounter (6) Left shoulder pain: Qualified Codes: M25.512 - Pain in left shoulder (7) Diarrhea: Qualified Codes: R19.7 - Diarrhea, unspecified Anthony Liu MD Oct 23, 2017 14:13
[2017-10-23 16:00] VITALS: BP 119/57; PULSE 86; RESP 18; TEMP 98.8; O2SAT 97
[2017-10-23 20:00] VITALS: BP 117/57; PULSE 88; RESP 18; TEMP 97.8; O2SAT 98
[2017-10-23] MEDS: traZODone HCL 50 MG TAB PO PRN (21:00)
[2017-10-23] MEDS: ACETAMINOPHEN 500 MG CPLT PO PRN (22:15)
[2017-10-24] VITALS: BP 118/56; PULSE 83; RESP 18; TEMP 97.8; O2SAT 96
[2017-10-24] MEDS: CHLORHEXIDINE GLUCONATE 2 % 1 PACK (2 CLOTHS) TOP SCH (03:01)
[2017-10-24 04:00] VITALS: BP 110/56; PULSE 84; RESP 18; TEMP 97.8; O2SAT 97
[2017-10-24] MEDS: hydrALAZINE HCL 25 MG TAB PO SCH ×3 (06:00→21:10)
[2017-10-24 08:00] VITALS: BP 108/61; PULSE 80; RESP 16; TEMP 97.9; O2SAT 98
--- NOTE | 2017-10-24 08:33 | HHI.PR ---
Neuropsych Emotional Emotional: Mild: Anxious/Fearful, Depressed/Sad Behavior Behavior: Intact: Coping/Acceptance, Cooperative w/ Treatment, Motivation, Frustration Tolerance/[place], Impulsive/Agitated Cognitive Cognitive: Intact: Cognitive, Attention/Concentration, Confused/Orientation, Insight/Awareness, Judgement/Problem-Solving, Memory Psychosocial Psychosocial: Severe: Psychosocial, Family/Other Adjustment, Realistic Expectation, Unable to Asses: Self-Esteem/Confidence Progress Notes/Response to Tx Contents of Sessions: Adjustment Time with Patient: 30 minutes Premorbid psychological status Premorbid Cognitive, Emotional and Behavioral Status: Tenuous. The patient has high school years of education and a solid work history prior to this injury , but has been on disability for several years. The patient has no prior psychiatric difficulties, as described above, except ETOH dependence and depression. Substance abuse history includes ETOH, which has contributed to his medical state. Behavioral Reactions of Patient and Family/Support System: Tenuous. The patients family is experiencing ongoing issues of adjustment given the nature of the injury, and this aspect of recovery will require ongoing monitoring. Emotional/Behavioral Status of Patient and Family/Support System: Tenuous. Pertinent issues, if appropriate to this patients clinical care, are described in detail above. Maximizing acute care outcome Given his hepatic dysfunction, pharmacological management of his depression is limited to medications with the least side effect profile. One medication that may meet this criteria is Citalopram, which you may wish to consider, unless otherwise medically contraindicated. I will follow-up with this patient for supportive psychotherapeutic contact throughout the rest of his stay. Also, he does complain of insomnia, but he may only be a candidate for melatonin, which he currently is prescribed. The benefits of melatonin on sleep improve is better if taken several hours PRIOR to sleep, and as such the medication may be more effective if scheduled two to three hours PRIOR to sleep. At this point in the recovery process, the patient does have cognitive capacity as the patient is able to understand a situation and its likely consequences, and he is able to manipulate information rationally. Cognitive capacity will be assessed throughout the recovery process. Anticipated Problems Ongoing areas of concern will include depression and anxiety, which is expected to improve with time and treatment. Treatment Plan This clinician will continue to follow with you throughout the course of this patients acute care treatment, and I will be available to meet with the patient s family/support system to facilitate their understanding and the ongoing care of their family member. The goals of neuropsychological intervention shall be both educational and supportive to the family/support system as is deemed clinically appropriate. Impression This 62 year old male with a history of chronic ETOH abuse, ESLD and brain injury, who is now complaining of depression due to losses of activity and participation. He is to transfer to an SNF in [place]. Clinically, he has mild neurocognitive dysfunction related to his multiple medical comorbidities, yet he still has decision making capacity. Emotionally, the patient meets criteria for major depressive disorder. Diagnosis: (1) Mild neurocognitive disorder (2) Alcohol dependence in controlled environment (3) Major depressive disorder, single episode, mild with anxious distress Progress Note Narrative Day 45 of hospitalization. The patient's mood and affect have improved. He is awaiting safe discharge to [place]. He remains on Trazodone 50 HS to help with sleep. No SI/HI. I provided psychological support and encouragement. I will follow. Manuel Suazo PhD Oct 24, 2017 8:32 am
[2017-10-24] MEDS: LACTULOSE SYRUP 20 GM/30 ML CUP PO SCH ×3 (09:00→18:00)
[2017-10-24] MEDS: LEVOFLOXACIN 750 MG TAB PO SCH (09:48)
[2017-10-24] MEDS: PANTOPRAZOLE SOD 40 MG DELAYED RELEASE TAB PO SCH (09:49)
[2017-10-24] MEDS: THIAMINE HCL 100 MG TAB PO SCH (09:49)
[2017-10-24] MEDS: FUROSEMIDE 40 MG TAB PO SCH (09:50)
[2017-10-24] MEDS: SPIRONOLACTONE 25 MG TAB PO SCH (09:50)
[2017-10-24] MEDS: DOCUSATE SODIUM 50 MG/SENNA 8.6 MG TAB PO SCH ×2 (09:50→21:10)
[2017-10-24] MEDS: MULTIVITAMIN TAB PO SCH (09:51)
[2017-10-24] MEDS: ARTIFICIAL TEARS OPTH SOLN 15 ML BTL EACH EYE SCH ×3 (09:52→18:00)
[2017-10-24] MEDS: SODIUM CHLORIDE 0.9% FLUSH 10 ML FLUSH IV FLUSH SCH ×2 (09:52→21:10)
--- NOTE | 2017-10-24 10:24 | HHI.PR ---
Subjective Remarks Patient has no complaints at this time. He states that his daughter is arranging a flight for him back to [place] for Saturday. He will be staying with her. Denies chest pain, dyspnea. Objective Vitals Vital Signs Date Time Temp Pulse Resp B/P (MAP) Pulse Ox O2 Delivery O2 Flow Rate FiO2 10/24/17 08:00 97.9 80 16 108/61 (77) 98 10/24/17 04:00 97.8 84 18 110/56 (74) 97 10/24/17 00:00 97.8 83 18 118/56 (76) 96 10/23/17 20:00 97.8 88 18 117/57 (77) 98 10/23/17 16:00 98.8 86 18 119/57 (77) 97 10/23/17 12:00 98.4 90 19 122/ 97 I/O 10/23/17 10/23/17 10/23/17 10/24/17 10/24/17 10/24/17 07:00 15:00 23:00 07:00 15:00 23:00 Intake Total 960 ml Output Total 600 ml Balance 360 ml Intake Oral 960 ml Output Urine Total 600 ml # Voids 4 # Bowel Movements 1 1 Imaging Last Impressions Head CT 10/16/17 0000 Signed Impressions: CONCLUSION: 1. Persistent right frontoparietal subdural collection which is decreased in o verall size compared to 09/23/2017 but still prominent in width in the frontal r egion measuring 2.1 cm in greatest width. The majority of the collection is com posed of subacute blood although there are small areas of hyperdense blood prod ucts suggesting some acute hemorrhage. There is 3 mm of subfalcine herniation t o the left which is slightly improved compared to the previous examination. 2. Stable tiny acute left frontal subdural measuring 2 mm in greatest width. Abdomen/Pelvis CT 10/10/17 0000 Signed Impressions: CONCLUSION: 1. Cirrhotic liver appearance with prominent stigmata of portal hypertension. 2. Nonspecific lymphadenopathy. 3. Mild ascites. 4. Gallstones. 5. Medullary nephrocalcinosis. 6. Small effusions and mild lung base atelectasis. Renal Ultrasound 10/08/17 0000 Signed Impressions: CONCLUSION: 1. There are no findings to indicate obstruction. Kidneys have a normal appear ance. 2. Small volume of ascites in this patient with cirrhosis. Abdomen Ultrasound 10/06/17 Signed Impressions: CONCLUSION: 1. Small amount of ascites along the edge of the liver. 2. Nodularity of the hepatic contour suggesting cirrhosis. Liver Ultrasound 10/04/17 Signed Impressions: CONCLUSION: 1. No specific abnormality is identified to explain the patient's fever. 2. However, there are persistent findings indicating cirrhosis with findings o f portal hypertension including splenomegaly, recanalized paraumbilical vein, a nd ascites. 3. There is hepatofugal flow in the main portal vein. Chest X-Ray 10/04/17 Signed Impressions: CONCLUSION: No acute cardiopulmonary process. Shoulder X-Ray 09/09/17 0000 Signed Impressions: Service Date/Time: Saturday, September 09, 2017 21:01 - CONCLUSION: 1. No acute bony abnormality. Vito Minor MD Lower Extremity Ultrasound 09/09/17 0000 Signed Impressions: Service Date/Time: Saturday, September 09, 2017 21:41 - CONCLUSION: Normal examination. Henok Young MD Elbow X-Ray 09/09/17 0000 Signed Impressions: Service Date/Time: Saturday, September 09, 2017 20:53 - CONCLUSION: 1. No acute bony abnormalities. Vito Minor MD Objective Remarks General: No acute distress. Heart: Regular rate and rhythm. 2/6 murmur. Lungs: Clear to auscultation bilaterally. No wheezes, rales, or rhonchi. Breathing is nonlabored. Abdomen: Soft, nontender, nondistended. Extremities: No lower extremity edema. Psych: Alert and oriented. Neuro: Normal speech. No focal deficits noted. Procedures 09/12/17 EGD 09/20/17 emelyn hole for evacuation of subdural hematoma Urinary Catheter: No Vascular Central Line Catheter: No A/P Problem List: (1) Liver cirrhosis ICD Code: K74.60 - Unspecified cirrhosis of liver (2) Spleen hematoma ICD Code: S36.029A - Unspecified contusion of spleen, initial encounter Status: Acute (3) Hyperbilirubinemia ICD Code: E80.6 - Other disorders of bilirubin metabolism Status: Acute (4) Splenomegaly ICD Code: R16.1 - Splenomegaly, not elsewhere classified Status: Chronic (5) Ascites ICD Code: R18.8 - Other ascites Status: Chronic (6) Hypokalemia ICD Code: E87.6 - Hypokalemia Status: Resolved (7) Macrocytic anemia ICD Code: D53.9 - Nutritional anemia, unspecified Status: Chronic (8) HTN (hypertension) ICD Code: I10 - Essential (primary) hypertension Status: Chronic (9) Fall ICD Code: W19.XXXA - Unspecified fall, initial encounter Status: Acute (10) Left shoulder pain ICD Code: M25.512 - Pain in left shoulder (11) Edema of left lower extremity ICD Code: R60.0 - Localized edema (12) Hyperammonemia ICD Code: E72.20 - Disorder of urea cycle metabolism, unspecified (13) Coagulopathy ICD Code: D68.9 - Coagulation defect, unspecified Status: Acute (14) Diarrhea ICD Code: R19.7 - Diarrhea, unspecified Assessment and Plan 10/24/17: No change. Awaiting arrangements for safe discharge. 1. Right subdural hematoma: Status post bur hole evacuation. Drain has been removed. Patient was placed on Keppra for 7 days. Continue blood pressure control. Seizure precautions. 2. E. coli bacteremia: Appreciate infectious disease recommendations. Continue Levaquin. Repeat blood cultures are negative so far. 3. Hepatitis C: Follow-up as outpatient with GI. 4. Depression, insomnia: Appreciate neuropsychology recommendations/ assistance. Low-dose Ativan as needed. Continue trazodone. 5. Tobacco abuse: Chronic. Counseled to quit smoking. 6. Acute kidney injury: Avoid nephrotoxic medications. Medullary nephrocalcinosis noted on CT. Continue Aldactone, Lasix. Monitor intake/ output. Follow-up with nephrology. 7. Macrocytic anemia, thrombocytopenia: Status post vitamin K. Received 4 units of platelets, 4 FFP, 2 liquid plasma, and 2 cryoprecipitate. Monitor labs. 8. Chronic low back pain: Follow-up as outpatient with rheumatology. Continue physical therapy. 9. Hypokalemia: Resolved. 10. GI prophylaxis: Protonix. 11. Hypertension: Continue hydralazine. Amlodipine on hold. Clonidine, Vasotec as needed. 12. DVT prophylaxis: SCDs. Avoid chemical prophylaxis secondary to subdural hematoma. Discharge Planning Plan for discharge once arrangements are made. Patient plans to return to [place] and stay with family. Problem Qualifiers (1) Liver cirrhosis: (2) Spleen hematoma: Qualified Codes: S36.029A - Unspecified contusion of spleen, initial encounter (3) Ascites: Qualified Codes: R18.8 - Other ascites (4) HTN (hypertension): Qualified Codes: I10 - Essential (primary) hypertension (5) Fall: Qualified Codes: W19.XXXA - Unspecified fall, initial encounter (6) Left shoulder pain: Qualified Codes: M25.512 - Pain in left shoulder (7) Diarrhea: Qualified Codes: R19.7 - Diarrhea, unspecified Anthony Liu MD Oct 24, 2017 10:23
[2017-10-24 11:52] VITALS: BP 122/65; PULSE 84; RESP 17; TEMP 98; O2SAT 100
[2017-10-24 16:00] VITALS: BP 125/58; PULSE 81; RESP 18; TEMP 97.9; O2SAT 100
[2017-10-24] MEDS: traZODone HCL 50 MG TAB PO PRN (21:10)
[2017-10-24 22:50] VITALS: BP 114/58; PULSE 90; RESP 17; TEMP 98.8; O2SAT 98
[2017-10-25 00:45] VITALS: BP 118/60; PULSE 88; RESP 19; TEMP 98; O2SAT 97
[2017-10-25] MEDS: CHLORHEXIDINE GLUCONATE 2 % 1 PACK (2 CLOTHS) TOP SCH (04:00)
[2017-10-25 04:20] VITALS: BP 115/66; PULSE 67; RESP 18; TEMP 97.8; O2SAT 95
[2017-10-25] MEDS: hydrALAZINE HCL 25 MG TAB PO SCH ×3 (06:10→22:18)
--- NOTE | 2017-10-25 08:22 | HHI.PR ---
Neuropsych Emotional Emotional: Intact: Depressed/Sad, Mild: Anxious/Fearful Behavior Behavior: Intact: Coping/Acceptance, Cooperative w/ Treatment, Motivation, Frustration Tolerance/[place], Impulsive/Agitated Cognitive Cognitive: Intact: Cognitive, Attention/Concentration, Confused/Orientation, Insight/Awareness, Judgement/Problem-Solving, Memory Psychosocial Psychosocial: Intact: Self-Esteem/Confidence, Moderate: Psychosocial, Family/ Other Adjustment, Realistic Expectation Progress Notes/Response to Tx Contents of Sessions: Adjustment, Level of Consciousness Time with Patient: 30 minutes Premorbid psychological status Premorbid Cognitive, Emotional and Behavioral Status: Tenuous. The patient has high school years of education and a solid work history prior to this injury , but has been on disability for several years. The patient has no prior psychiatric difficulties, as described above, except ETOH dependence and depression. Substance abuse history includes ETOH, which has contributed to his medical state. Behavioral Reactions of Patient and Family/Support System: Tenuous. The patients family is experiencing ongoing issues of adjustment given the nature of the injury, and this aspect of recovery will require ongoing monitoring. Emotional/Behavioral Status of Patient and Family/Support System: Tenuous. Pertinent issues, if appropriate to this patients clinical care, are described in detail above. Maximizing acute care outcome Given his hepatic dysfunction, pharmacological management of his depression is limited to medications with the least side effect profile. One medication that may meet this criteria is Citalopram, which you may wish to consider, unless otherwise medically contraindicated. I will follow-up with this patient for supportive psychotherapeutic contact throughout the rest of his stay. Also, he does complain of insomnia, but he may only be a candidate for melatonin, which he currently is prescribed. The benefits of melatonin on sleep improve is better if taken several hours PRIOR to sleep, and as such the medication may be more effective if scheduled two to three hours PRIOR to sleep. At this point in the recovery process, the patient does have cognitive capacity as the patient is able to understand a situation and its likely consequences, and he is able to manipulate information rationally. Cognitive capacity will be assessed throughout the recovery process. Anticipated Problems Ongoing areas of concern will include depression and anxiety, which is expected to improve with time and treatment. Treatment Plan This clinician will continue to follow with you throughout the course of this patients acute care treatment, and I will be available to meet with the patient s family/support system to facilitate their understanding and the ongoing care of their family member. The goals of neuropsychological intervention shall be both educational and supportive to the family/support system as is deemed clinically appropriate. Impression This 62 year old male with a history of chronic ETOH abuse, ESLD and brain injury, who is now complaining of depression due to losses of activity and participation. He is to transfer to an SNF in [place]. Clinically, he has mild neurocognitive dysfunction related to his multiple medical comorbidities, yet he still has decision making capacity. Emotionally, the patient meets criteria for major depressive disorder. Diagnosis: (1) Mild neurocognitive disorder (2) Alcohol dependence in controlled environment (3) Major depressive disorder, single episode, mild with anxious distress Progress Note Narrative Day 46 of hospitalization. The patient is doing well from a neurobehavioral standpoint. He awaits discharge tomorrow to transfer to his daughter's home in [place], where he will eventually go to an [facility]. His mood is much improved, anxious but not depressed. Affect is stable. No SI/HI. I provided him ongoing psychological support and encouragement. I will follow until he discharges. Manuel Suazo PhD Oct 25, 2017 08:22
[2017-10-25] MEDS: SPIRONOLACTONE 25 MG TAB PO SCH (08:48)
[2017-10-25] MEDS: FUROSEMIDE 40 MG TAB PO SCH (08:48)
[2017-10-25] MEDS: PANTOPRAZOLE SOD 40 MG DELAYED RELEASE TAB PO SCH (08:48)
[2017-10-25] MEDS: THIAMINE HCL 100 MG TAB PO SCH (08:48)
[2017-10-25] MEDS: LACTULOSE SYRUP 20 GM/30 ML CUP PO SCH ×3 (08:49→17:04)
[2017-10-25] MEDS: DOCUSATE SODIUM 50 MG/SENNA 8.6 MG TAB PO SCH ×2 (08:49→21:00)
[2017-10-25] MEDS: LEVOFLOXACIN 750 MG TAB PO SCH (08:49)
[2017-10-25] MEDS: MULTIVITAMIN TAB PO SCH (08:49)
[2017-10-25] MEDS: SODIUM CHLORIDE 0.9% FLUSH 10 ML FLUSH IV FLUSH SCH ×2 (08:50→22:18)
[2017-10-25] MEDS: ARTIFICIAL TEARS OPTH SOLN 15 ML BTL EACH EYE SCH ×3 (08:50→17:04)
[2017-10-25 09:27] VITALS: BP 110/56; PULSE 79; RESP 20; TEMP 98.3; O2SAT 97
[2017-10-25] MEDS ORDERED: WHEEMIS3 (09:59)
[2017-10-25] MEDS ORDERED: FURO40TA PO (11:18)
[2017-10-25] MEDS ORDERED: HYDR-3799 PO (11:18)
[2017-10-25] MEDS ORDERED: SPIR25 PO (11:18)
[2017-10-25] MEDS ORDERED: PROT40TA PO (11:18)
[2017-10-25] MEDS ORDERED: OXYC-392 PO (11:18)
[2017-10-25] MEDS ORDERED: LEVA750T9 PO (11:18)
--- NOTE | 2017-10-25 11:18 | HHI.DCPOC ---
Discharge Care Plan Diagnosis: (1) Mild neurocognitive disorder (2) Subdural hematoma (3) Major depressive disorder, single episode, mild with anxious distress (4) Alcohol dependence in controlled environment (5) HTN (hypertension) Goals to Promote Your Health * To prevent worsening of your condition and complications * To maintain your health at the optimal level Directions to Meet Your Goals Take your medications as prescribed Follow your dietary instruction Follow activity as directed Keep your appointments as scheduled Take your immunizations and boosters as scheduled If your symptoms worsen call your PCP, if no PCP go to Urgent Care Center or Emergency Room Smoking is Dangerous to Your Health. Avoid second hand smoke Call the 24-hour hour crisis hotline for domestic abuse at Anthony Liu MD Oct 25, 2017 11:18
[2017-10-25 13:03] VITALS: BP 117/56; PULSE 83; RESP 20; TEMP 98.2; O2SAT 98
--- NOTE | 2017-10-25 14:19 | HHI.PR ---
Subjective Remarks No complaints at this time. Planning for discharge tomorrow morning to make a flight from [place] to [place], where he will stay with his daughter. Objective Vitals Vital Signs Date Time Temp Pulse Resp B/P (MAP) Pulse Ox O2 Delivery O2 Flow Rate FiO2 10/25/17 13:03 98.2 83 20 117/56 (76) 98 10/25/17 09:27 98.3 79 20 110/56 (74) 97 10/25/17 04:20 97.8 67 18 115/66 (82) 95 10/25/17 00:45 98.0 88 19 118/60 (79) 97 10/24/17 22:50 98.8 90 17 114/58 (76) 98 10/24/17 16:00 97.9 81 18 125/58 (80) 100 I/O 10/24/17 10/24/17 10/24/17 10/25/17 10/25/17 10/25/17 07:00 15:00 23:00 07:00 15:00 23:00 Intake Total 960 ml 1000 ml 1800 ml Output Total 600 ml Balance 360 ml 1000 ml 1800 ml Intake Oral 960 ml 1000 ml 1800 ml Output Urine Total 600 ml # Voids 1 5 # Bowel Movements 1 0 0 Imaging Last Impressions Head CT 10/16/17 0000 Signed Impressions: CONCLUSION: 1. Persistent right frontoparietal subdural collection which is decreased in o verall size compared to 09/23/2017 but still prominent in width in the frontal r egion measuring 2.1 cm in greatest width. The majority of the collection is com posed of subacute blood although there are small areas of hyperdense blood prod ucts suggesting some acute hemorrhage. There is 3 mm of subfalcine herniation t o the left which is slightly improved compared to the previous examination. 2. Stable tiny acute left frontal subdural measuring 2 mm in greatest width. Abdomen/Pelvis CT 10/10/17 0000 Signed Impressions: CONCLUSION: 1. Cirrhotic liver appearance with prominent stigmata of portal hypertension. 2. Nonspecific lymphadenopathy. 3. Mild ascites. 4. Gallstones. 5. Medullary nephrocalcinosis. 6. Small effusions and mild lung base atelectasis. Renal Ultrasound 10/08/17 0000 Signed Impressions: CONCLUSION: 1. There are no findings to indicate obstruction. Kidneys have a normal appear ance. 2. Small volume of ascites in this patient with cirrhosis. Abdomen Ultrasound 10/06/17 Signed Impressions: CONCLUSION: 1. Small amount of ascites along the edge of the liver. 2. Nodularity of the hepatic contour suggesting cirrhosis. Liver Ultrasound 10/04/17 Signed Impressions: CONCLUSION: 1. No specific abnormality is identified to explain the patient's fever. 2. However, there are persistent findings indicating cirrhosis with findings o f portal hypertension including splenomegaly, recanalized paraumbilical vein, a nd ascites. 3. There is hepatofugal flow in the main portal vein. Chest X-Ray 10/04/17 Signed Impressions: CONCLUSION: No acute cardiopulmonary process. Shoulder X-Ray 09/09/17 0000 Signed Impressions: Service Date/Time: Saturday, September 09, 2017 21:01 - CONCLUSION: 1. No acute bony abnormality. Vito Minor MD Lower Extremity Ultrasound 09/09/17 0000 Signed Impressions: Service Date/Time: Saturday, September 09, 2017 21:41 - CONCLUSION: Normal examination. Henok Young MD Elbow X-Ray 09/09/17 0000 Signed Impressions: Service Date/Time: Saturday, September 09, 2017 20:53 - CONCLUSION: 1. No acute bony abnormalities. Vito Minor MD Objective Remarks General: No acute distress. Heart: Regular rate and rhythm. 2/6 murmur. Lungs: Clear to auscultation bilaterally. No wheezes, rales, or rhonchi. Breathing is nonlabored. Abdomen: Soft, nontender, nondistended. Extremities: No lower extremity edema. Psych: Alert and oriented. Neuro: Normal speech. No focal deficits noted. Procedures 09/12/17 EGD 09/20/17 emelyn hole for evacuation of subdural hematoma Urinary Catheter: No Vascular Central Line Catheter: No A/P Problem List: (1) Liver cirrhosis ICD Code: K74.60 - Unspecified cirrhosis of liver (2) Spleen hematoma ICD Code: S36.029A - Unspecified contusion of spleen, initial encounter Status: Acute (3) Hyperbilirubinemia ICD Code: E80.6 - Other disorders of bilirubin metabolism Status: Acute (4) Splenomegaly ICD Code: R16.1 - Splenomegaly, not elsewhere classified Status: Chronic (5) Ascites ICD Code: R18.8 - Other ascites Status: Chronic (6) Hypokalemia ICD Code: E87.6 - Hypokalemia Status: Resolved (7) Macrocytic anemia ICD Code: D53.9 - Nutritional anemia, unspecified Status: Chronic (8) HTN (hypertension) ICD Code: I10 - Essential (primary) hypertension Status: Chronic (9) Fall ICD Code: W19.XXXA - Unspecified fall, initial encounter Status: Acute (10) Left shoulder pain ICD Code: M25.512 - Pain in left shoulder (11) Edema of left lower extremity ICD Code: R60.0 - Localized edema (12) Hyperammonemia ICD Code: E72.20 - Disorder of urea cycle metabolism, unspecified (13) Coagulopathy ICD Code: D68.9 - Coagulation defect, unspecified Status: Acute (14) Diarrhea ICD Code: R19.7 - Diarrhea, unspecified Assessment and Plan 10/25/17: No change. Awaiting arrangements for safe discharge. 1. Right subdural hematoma: Status post bur hole evacuation. Drain has been removed. Patient was placed on Keppra for 7 days. Continue blood pressure control. Seizure precautions. 2. E. coli bacteremia: Appreciate infectious disease recommendations. Continue Levaquin. Repeat blood cultures are negative so far. 3. Hepatitis C: Follow-up as outpatient with GI. 4. Depression, insomnia: Appreciate neuropsychology recommendations/ assistance. Low-dose Ativan as needed. Continue trazodone. 5. Tobacco abuse: Chronic. Counseled to quit smoking. 6. Acute kidney injury: Avoid nephrotoxic medications. Medullary nephrocalcinosis noted on CT. Continue Aldactone, Lasix. Monitor intake/ output. Follow-up with nephrology. 7. Macrocytic anemia, thrombocytopenia: Status post vitamin K. Received 4 units of platelets, 4 FFP, 2 liquid plasma, and 2 cryoprecipitate. Monitor labs. 8. Chronic low back pain: Follow-up as outpatient with rheumatology. Continue physical therapy. 9. Hypokalemia: Resolved. 10. GI prophylaxis: Protonix. 11. Hypertension: Continue hydralazine. Amlodipine on hold. Clonidine, Vasotec as needed. 12. DVT prophylaxis: SCDs. Avoid chemical prophylaxis secondary to subdural hematoma. Discharge Planning Discharge home tomorrow morning. Patient to be picked up from the hospital at 0430 by airport shuttle for transport to [place]. Case management assisting with meds, wheelchair. Problem Qualifiers (1) Liver cirrhosis: (2) Spleen hematoma: Qualified Codes: S36.029A - Unspecified contusion of spleen, initial encounter (3) Ascites: Qualified Codes: R18.8 - Other ascites (4) HTN (hypertension): Qualified Codes: I10 - Essential (primary) hypertension (5) Fall: Qualified Codes: W19.XXXA - Unspecified fall, initial encounter (6) Left shoulder pain: Qualified Codes: M25.512 - Pain in left shoulder (7) Diarrhea: Qualified Codes: R19.7 - Diarrhea, unspecified Anthony Liu MD Oct 25, 2017 14:19
--- NOTE | 2017-10-25 14:34 | HHI.DS ---
Discharge Summary Admission Date September 09, 2017 at 09:11 Discharge Date: Oct 26, 2017 Admitting Diagnosis Hyperbilirubinemia; Falls (1) Liver cirrhosis ICD Code: K74.60 - Unspecified cirrhosis of liver (2) Spleen hematoma ICD Code: S36.029A - Unspecified contusion of spleen, initial encounter Status: Acute (3) Hyperbilirubinemia ICD Code: E80.6 - Other disorders of bilirubin metabolism Status: Acute (4) Splenomegaly ICD Code: R16.1 - Splenomegaly, not elsewhere classified Status: Chronic (5) Ascites ICD Code: R18.8 - Other ascites Status: Chronic (6) Hypokalemia ICD Code: E87.6 - Hypokalemia Status: Resolved (7) Macrocytic anemia ICD Code: D53.9 - Nutritional anemia, unspecified Status: Chronic (8) HTN (hypertension) ICD Code: I10 - Essential (primary) hypertension Status: Chronic (9) Fall ICD Code: W19.XXXA - Unspecified fall, initial encounter Status: Acute (10) Left shoulder pain ICD Code: M25.512 - Pain in left shoulder (11) Edema of left lower extremity ICD Code: R60.0 - Localized edema (12) Hyperammonemia ICD Code: E72.20 - Disorder of urea cycle metabolism, unspecified (13) Coagulopathy ICD Code: D68.9 - Coagulation defect, unspecified Status: Acute (14) Diarrhea ICD Code: R19.7 - Diarrhea, unspecified Procedures 09/12/17 EGD 09/20/17 emelyn hole for evacuation of subdural hematoma Brief History - From Admission HPI from the admitting physician This is a 62-year-old male with past medical history significant for chronic alcohol abuse who presents to [facility] after he slipped and fell. The patient states that he slipped over a towel and fell over his left side. Complained of chest pain on the left side of the rib cage. He was experiencing some left shoulder pain and headache. Denies any fevers chills. The patient however denies hitting his head or passing out. The patient otherwise denies any shortness of breath, fevers, chills, dysuria, diarrhea, nausea, vomiting. He notes when asked that his belly is somewhat distended. Patient was seen in emergency department where a chest x-ray was negative for acute abnormality. There was increased density in the right paratracheal region noted. CT of the abdomen and pelvis showed extensive ascites with cirrhosis or varicosities. Prominent spleen with possible tiny subcapsular hematoma. Minimal induration of the anterior abdominal wall on the left side. The patient was admitted due to his elevated bilirubin, ascites. Imaging Last Impressions Head CT 10/16/17 Signed Impressions: CONCLUSION: 1. Persistent right frontoparietal subdural collection which is decreased in o verall size compared to 09/23/2017 but still prominent in width in the frontal r egion measuring 2.1 cm in greatest width. The majority of the collection is com posed of subacute blood although there are small areas of hyperdense blood prod ucts suggesting some acute hemorrhage. There is 3 mm of subfalcine herniation t o the left which is slightly improved compared to the previous examination. 2. Stable tiny acute left frontal subdural measuring 2 mm in greatest width. Abdomen/Pelvis CT 10/10/17 Signed Impressions: CONCLUSION: 1. Cirrhotic liver appearance with prominent stigmata of portal hypertension. 2. Nonspecific lymphadenopathy. 3. Mild ascites. 4. Gallstones. 5. Medullary nephrocalcinosis. 6. Small effusions and mild lung base atelectasis. Renal Ultrasound 10/08/17 Signed Impressions: CONCLUSION: 1. There are no findings to indicate obstruction. Kidneys have a normal appear ance. 2. Small volume of ascites in this patient with cirrhosis. Abdomen Ultrasound 10/06/17 Signed Impressions: CONCLUSION: 1. Small amount of ascites along the edge of the liver. 2. Nodularity of the hepatic contour suggesting cirrhosis. Liver Ultrasound 10/04/17 Signed Impressions: CONCLUSION: 1. No specific abnormality is identified to explain the patient's fever. 2. However, there are persistent findings indicating cirrhosis with findings o f portal hypertension including splenomegaly, recanalized paraumbilical vein, a nd ascites. 3. There is hepatofugal flow in the main portal vein. Chest X-Ray 10/04/17 Signed Impressions: CONCLUSION: No acute cardiopulmonary process. Shoulder X-Ray 5/7/18 0000 Signed Impressions: Service Date/Time: Saturday, September 09, 2017 21:01 - CONCLUSION: 1. No acute bony abnormality. Vito Minor MD Lower Extremity Ultrasound 09/09/17 0000 Signed Impressions: Service Date/Time: Saturday, September 09, 2017 21:41 - CONCLUSION: Normal examination. Henok Young MD Elbow X-Ray 09/09/17 0000 Signed Impressions: Service Date/Time: Saturday, September 09, 2017 20:53 - CONCLUSION: 1. No acute bony abnormalities. Vito Minor MD PE at Discharge General: No acute distress. Heart: Regular rate and rhythm. 2/6 murmur. Lungs: Clear to auscultation bilaterally. No wheezes, rales, or rhonchi. Breathing is nonlabored. Abdomen: Soft, nontender, nondistended. Extremities: No lower extremity edema. Psych: Alert and oriented. Neuro: Normal speech. No focal deficits noted. Hospital Course The patient was admitted for management of subdural hematoma. Neurosurgery was consulted. Drain was placed 09/23/17. Patient improved. Drain was removed. Blood pressure medications were adjusted. Patient remained weak. PT worked with the patient. Initially plan was for discharge to SNF, but no facility accepted the patient. He continued to improve with PT. He was felt to be stable for discharge home with family. Arrangements were made by the patient's daughter for him to fly back to [place] to stay with her. Neurosurgery cleared the patient to fly. See prior discharge summary dated 09/27/17 for more information. Pt Condition on Discharge: Stable Discharge Disposition: Discharge Home Discharge Time: > 30 minutes Discharge Instructions DIET: Follow Instructions for: As Tolerated, No Restrictions Activities you can perform: Regular-No Restrictions Follow up Referrals: Neurosurgery with Al Carranza MD PCP Follow-up - 1 Week New Orders: CT Brain W/O Contrast - 1 Month New Medications: Wheelchair (Wheelchair) 1 Mis Mis EA .XX DIRECTED, #1 0 Refills Furosemide (Furosemide) 40 Mg Tab 40 MG PO DAILY for edema, #90 TAB 0 Refills Hydralazine HCl (Hydralazine HCl) 25 Mg Tablet 25 MG PO Q8HR for Blood Pressure Management for 90 Days, #270 TAB 0 Refills Levofloxacin (Levaquin) 750 Mg Tablet 750 MG PO DAILY for Infection, #7 TAB 0 Refills Oxycodone (Oxycodone) 5 Mg Tab 5 MG PO Q6H PRN for PAIN GREATER THAN 5 for 3 Days, #12 TAB 0 Refills Spironolactone (Aldactone) 25 Mg Tab 25 MG PO DAILY for edema, #90 TAB 0 Refills Continued Medications: Acetaminophen (Tylenol) 325 Mg Tab 325 MG PO Q4H PRN for PAIN SCALE 1 TO 5, TAB 0 Refills Pantoprazole (Protonix) 40 Mg Tab 40 MG PO DAILY for Reflux, #90 TAB 0 Refills (This prescription has been renewed ) Anthony Liu MD Oct 25, 2017 14:34
[2017-10-25 16:36] VITALS: BP 141/63; PULSE 93; RESP 20; TEMP 98; O2SAT 100
[2017-10-25 21:45] VITALS: BP 119/68; PULSE 69; RESP 19; TEMP 98.7; O2SAT 96
[2017-10-26 04:00] VITALS: BP 133/83; PULSE 97; RESP 20; TEMP 98.5; O2SAT 94
== END 2017-10-26 06:49 | disposition home or self-care (01) | DRG 955 ==
LOC: NEPC 06:41 → NEDA 09:11 → N06A 10:28 → N03A 09-18 14:14 → N07B 09-26 10:23 → N03B 09-26 10:25 → N03A 09-26 10:50 → N05B 09-28 17:40
PROVIDERS: ADMIT Family Medicine; ATTEND Family Medicine
PROC: 30233L1 Transfusion of Nonautologous Fresh Plasma into Peripheral Vein, Percutaneous Approach (ICD-10-PCS; 2017-09-12)
PROC: 30233R1 Transfusion of Nonautologous Platelets into Peripheral Vein, Percutaneous Approach (ICD-10-PCS; 2017-09-12)
PROC: 30233M1 Transfusion of Nonautologous Plasma Cryoprecipitate into Peripheral Vein, Percutaneous Approach (ICD-10-PCS; 2017-09-12)
PROC: 30233K1 Transfusion of Nonautologous Frozen Plasma into Peripheral Vein, Percutaneous Approach (ICD-10-PCS; 2017-09-12)
PROC: 0DJ08ZZ Inspection of Upper Intestinal Tract, Via Natural or Artificial Opening Endoscopic (ICD-10-PCS; 2017-09-12)
PROC: 00C43ZZ Extirpation of Matter from Intracranial Subdural Space, Percutaneous Approach (ICD-10-PCS; principal; 2017-09-20)
DX: S06.5X0A Traumatic subdural hemorrhage without loss of consciousness, initial encounter (principal); S36.020A Minor contusion of spleen, initial encounter; G93.5 Compression of brain; A41.51 Sepsis due to Escherichia coli [E. coli]; G93.40 Encephalopathy, unspecified; N17.9 Acute kidney failure, unspecified; D68.4 Acquired coagulation factor deficiency; K76.6 Portal hypertension; I85.10 Secondary esophageal varices without bleeding; N39.0 Urinary tract infection, site not specified; G81.94 Hemiplegia, unspecified affecting left nondominant side; F32.0 Major depressive disorder, single episode, mild; K70.31 Alcoholic cirrhosis of liver with ascites; K72.90 Hepatic failure, unspecified without coma; D69.6 Thrombocytopenia, unspecified; R16.1 Splenomegaly, not elsewhere classified; S20.212A Contusion of left front wall of thorax, initial encounter; W01.0XXA Fall on same level from slipping, tripping and stumbling without subsequent striking against object, initial encounter; F17.210 Nicotine dependence, cigarettes, uncomplicated; F10.20 Alcohol dependence, uncomplicated; M25.512 Pain in left shoulder; F41.9 Anxiety disorder, unspecified; I10 Essential (primary) hypertension; E80.7 Disorder of bilirubin metabolism, unspecified; E87.6 Hypokalemia; D53.9 Nutritional anemia, unspecified; K20.9 Esophagitis, unspecified; K29.70 Gastritis, unspecified, without bleeding; K31.89 Other diseases of stomach and duodenum; K29.80 Duodenitis without bleeding; I86.4 Gastric varices; B19.20 Unspecified viral hepatitis C without hepatic coma; G89.29 Other chronic pain; M54.5 Low back pain; B96.20 Unspecified Escherichia coli [E. coli] as the cause of diseases classified elsewhere; E88.09 Other disorders of plasma-protein metabolism, not elsewhere classified; R29.810 Facial weakness; R60.0 Localized edema; R19.7 Diarrhea, unspecified; E83.42 Hypomagnesemia; E83.59 Other disorders of calcium metabolism; N29 Other disorders of kidney and ureter in diseases classified elsewhere; G47.00 Insomnia, unspecified; R32 Unspecified urinary incontinence; R29.6 Repeated falls; R53.81 Other malaise; Z87.11 Personal history of peptic ulcer disease
CPT/HCPCS: 36430; 61210; 70450; 71045; 73030; 73080; 74176; 74177; 76705; 76775; 76937; 80048; 80053; 80074; 80076; 81001; 82103; 82105; 82140; 82248; 82390; 82550; 82728; 82947; 82948; 83036; 83520; 83540; 83550; 83615; 83690; 83735; 84100; 84155; 84295; 84439; 84443; 84484; 85007; 85014; 85018; 85025; 85027; 85384; 85610; 85730; 86038; 86039; 86225; 86255; 86850; 86900; 86901; 86920; 86927; 86965; 87040; 87086; 87186; 87205; 87493; 87522; 87641; 87902; 93005; 93971; 94150; 94640; 94664; 95819; C9113; J0696; J1940; J1953; J2250; J2270; J2405; J2543; J3370; J3411; J3430; J3475; J3480; J7030; J7040; J7050; J7120; J7613; P9017; P9035; P9037; Q9963; Q9967